=== PATIENT | female | born 1945 | race Caucasian/White ===

== ENCOUNTER → 2020-10-13 15:35 | Outpatient (BNVA) | payer MEDICARE, MEDICAID, SELFPAY | PROVIDERS: PCP Internal Medicine; Visit Provider Internal Medicine Pulmonary Disease | DX: Z76.89 Persons encountering health services in other specified circumstances (principal) | CPT/HCPCS: 99202 ==

== ENCOUNTER 2020-10-13 22:10 | Inpatient (IN) | payer MEDICARE, MEDICAID, SELFPAY ==
[2020-10-13 22:28] VITALS: BP 143/68; BP 180/110; PULSE 93; RESP 24; O2SAT 80; O2SAT 98; BMI 43.2
--- NOTE | 2020-10-13 22:37 | XR_ITS ---
EXAMINATION: XR CHEST CLINICAL INFORMATION: Dyspnea. COMPARISON: Chest CT dated 10/31/2017 and chest radiographs dated 10/05/2017. TECHNIQUE: Frontal view of the chest was obtained. FINDINGS: Low lung volumes and suboptimal penetration limit evaluation. There are increased pulmonary vascular markings. Opacification is seen in the left lower lung. The heart is enlarged. Moderate atherosclerosis is seen in the aortic arch. XR/XR chest 1V IMPRESSION: CHF and cardiomegaly. A left pleural effusion cannot be excluded.
--- NOTE | 2020-10-13 22:37 | ECG_ITS ---
Test Reason : DYSPNEA Blood Pressure : / mmHG Vent. Rate : 093 BPM Atrial Rate : 093 BPM P-R Int : 138 ms QRS Dur : 108 ms QT Int : 364 ms P-R-T Axes : 069 026 018 degrees QTc Int : 452 ms Sinus rhythm with Premature atrial complexes Low voltage QRS Incomplete right bundle branch block Borderline ECG No previous ECGs available Referred By: Zulema Brownlee Electronically Signed By:JAK LANDON
--- NOTE | 2020-10-13 23:09 | ED_ITS ---
HPI - General Adult General Chief complaint: Dyspnea Stated complaint: AMS & HYPOXIA S/P MISPLACED O2 NC TO FOREHEAD Time Seen by Provider: 10/13/20 22:35 Source: EMS Mode of arrival: EMS Limitations: altered mental status History of Present Illness HPI narrative: Patient is brought to emergency room by EMS. Patient has no records available and patient has altered mental status and unable to provide any history. Prior to the patient arriving to the emergency room, the patient's daughter called, states that the patient is known to have severe emphysema, today she was started on home oxygen. According to the daughter, the oxygen tank was not working properly, patient's oxygen saturation dropped to the 80s, patient became cyanotic, short of breath and had altered mental status. Since then, patient has been confused and altered. Patient was brought to the emergency room by EMS, she was placed on 15 L on a non-rebreather, patient pinked up immediately on oxygen improved to 99% I spoke to the patient's daughter, seems that the patient has history of CHF, emphysema, now on oxygen starting today, possible history of VT, smokes 1 cigarette per day. The daughter states that the patient has been complaining of worsening shortness of breath for approximately 1 month now. Patient states that she was seen by her PCP a few days ago, her oxygen was already on the lower side, patient refused to be admitted despite the patient's PCPs insistence. 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 Cherelle hay met the patient at her house, installed oxygen starting today. The daughter states that the patient had oxygen on, went to sleep, seems that the oxygen nasal cannula fell off her face, patient slept for unknown period of time without her oxygen, and when the daughter went to check on the patient, her mother looked hypoxic but was arousable but incoherent and very confused. That is when EMS was called. According to the daughter, as far she knows, the last time that the patient had a CHF exacerbation was approximately 3 or more years ago . Code status discussed, full code per patient's wishes expressed to her recreation superintendent this week Related Data Allergies Allergy/AdvReac Type Severity Reaction Status Date / Time vancomycin Allergy Difficulty Verified 10/13/20 22:36 Breathing Review of Systems Review of Systems: Yes unobtainable due to endotracheal tube PMFSH Past Medical History Medical History (Updated 10/14/20 @ 02:59 by Zulema Brownlee MD) Emphysema lung Social History Social History Alcohol intake: unknown Smoking Status: Unknown if ever smoked Use of substances other than those prescribed or required for medical reasons: Unknown Advance Directives: No Advance Directives Information Provided: No Physical Exam Vital Signs: Vital Signs: Last Vital Signs Temp 97.6 F 10/14/20 01:38 Pulse 104 H 10/14/20 01:38 Resp 20 10/14/20 01:38 BP 176/76 H 10/14/20 01:38 Pulse Ox 97 10/14/20 01:38 Body Mass Index 43.2 Appearance: Alert. Awake, does not seem in any distress, unable to give any history, Eyes: Pupils equal, round and reactive to light. ENT: Pharynx normal. Neck: Normal inspection. Neck supple CVS: Normal heart rate and rhythm. Pulses normal. Normal S1 and S2 Respiratory: No respiratory distress. Mild bilateral wheezing No rales Abdomen: Soft and nontender. Skin: Skin warm and dry. y Extremities: No lower extremity edema. No lower extremity edema. No L acerations. No Rash.However, lower extremities are very cool to touch bilaterally, not cyanotic, very faint pedal pulses bilaterall Neuro: Cranial nerves 2 through 12 grossly intact Course Course Course Narrative: I discussed the labs and physical exam with Dr. Diamond, patient has acute hypoxic respiratory failure, CHF exacerbation. One time dose of antibiotics will be given, at this time we will not give patient fluids, she is overloaded and sepsis is not suspected. Medical Decision Making Lab Data Result diagrams: 10/13/20 23:50 10/13/20 23:49 Labs: Lab Results 10/13/20 10/13/20 10/13/20 Range/Units 23:48 23:49 23:49 WBC (4.8-10.8) X10*3/uL RBC (4.20-5.50) X10*6/uL Hgb (12.0-16.0) g/dl Hct (37-47) % MCV (80-98) fL MCH (27.0-33.0) pg MCHC (31.0-35.0) g/dl RDW (11.0-16.0) % Plt Count MPV Immature Gran % (Auto) (0.0-0.4) % Neut % (Auto) (45-73) % Lymph % (Auto) (20-40) % [place] % (Auto) (2-11) % Eos % (Auto) (0-4) % Baso % (Auto) (0-2) % Lymph # (Auto) (1.2-4.9) X10*3/uL [place] # (Auto) (0.1-1.2) X10*3/uL Eos # (Auto) (0.0-0.4) X10*3/uL Baso # (Auto) (0.0-0.2) X10*3/uL Abs Immat Gran (auto) (0.00-0.03) X10*3/uL Absolute Neuts (auto) (2.0-8.3) X10*3/uL Absolute Nucleated RBC (0.0-0.012) X10*3/uL Nucleated RBC % (auto) (0.0-0.2) /100WBC Smear Tech's Comments Hold Blue Top ABG pH (7.35-7.45) ABG pCO2 (32-45) mmhg ABG pO2 (83-108) mmhg ABG HCO3 (22-26) mmol/l ABG O2 Saturation % ABG Base Excess Oxygen Given Sodium 142 (135-145) mmol/L Potassium 5.8 H (3.3-5.1) mmol/l Chloride 99 (96-108) mmol/L Carbon Dioxide 39 H (22-29) mmol/L Anion Gap 10 L (12-20) BUN 18 H (9-16) mg/dL Creatinine 0.85 (0.5-1.4) mg/dL Estim Creat Clear Calc 71.1 Estimated GFR > 60 Random Glucose 108 (60-115) mg/dL Lactic Acid 0.6 (0.5-2.0) mmol/L Calcium 9.6 (8.4-10.2) mg/dL Total Bilirubin (0.0-1.0) mg/dL Direct Bilirubin (0.0-0.5) mg/dL AST (5-31) U/L ALT (0-31) U/L Alkaline Phosphatase (39-117) U/L Troponin I High Sens 85.5 H (<3.5-17.0) ng/L B-Natriuretic Peptide 498 H (<100) pg/mL Total Protein (6.5-8.0) g/dL Albumin (3.5-5.0) g/dL Coronavirus (PCR) (Negative) Influenza Type A (PCR) (Negative) Influenza Type B (PCR) (Negative) RSV RNA Qual (PCR) (Negative) 10/13/20 10/13/20 10/13/20 Range/Units 23:49 23:50 23:50 WBC 8.1 (4.8-10.8) X10*3/uL RBC 5.16 (4.20-5.50) X10*6/uL Hgb 15.3 (12.0-16.0) g/dl Hct 52.8 H (37-47) % MCV 102.3 H (80-98) fL MCH 29.7 (27.0-33.0) pg MCHC 29.0 L (31.0-35.0) g/dl RDW 14.4 (11.0-16.0) % Plt Count Not Reportable MPV Not Reportable Immature Gran % (Auto) 0.4 (0.0-0.4) % Neut % (Auto) 70.2 (45-73) % Lymph % (Auto) 17.6 L (20-40) % [place] % (Auto) 10.9 (2-11) % Eos % (Auto) 0.7 (0-4) % Baso % (Auto) 0.2 (0-2) % Lymph # (Auto) 1.4 (1.2-4.9) X10*3/uL [place] # (Auto) 0.9 (0.1-1.2) X10*3/uL Eos # (Auto) 0.1 (0.0-0.4) X10*3/uL Baso # (Auto) 0.0 (0.0-0.2) X10*3/uL Abs Immat Gran (auto) 0.03 (0.00-0.03) X10*3/uL Absolute Neuts (auto) 5.7 (2.0-8.3) X10*3/uL Absolute Nucleated RBC 0.000 (0.0-0.012) X10*3/uL Nucleated RBC % (auto) 0.0 (0.0-0.2) /100WBC Smear Tech's Comments VERIFIED Hold Blue Top SEE NOTE ABG pH (7.35-7.45) ABG pCO2 (32-45) mmhg ABG pO2 (83-108) mmhg ABG HCO3 (22-26) mmol/l ABG O2 Saturation % ABG Base Excess Oxygen Given Sodium 142 (135-145) mmol/L Potassium 5.8 H (3.3-5.1) mmol/l Chloride 99 (96-108) mmol/L Carbon Dioxide 38 H (22-29) mmol/L Anion Gap 11 L (12-20) BUN 18 H (9-16) mg/dL Creatinine 0.85 (0.5-1.4) mg/dL Estim Creat Clear Calc 71.1 Estimated GFR > 60 Random Glucose 108 (60-115) mg/dL Lactic Acid (0.5-2.0) mmol/L Calcium 9.6 (8.4-10.2) mg/dL Total Bilirubin 0.4 (0.0-1.0) mg/dL Direct Bilirubin 0.2 (0.0-0.5) mg/dL AST 21 (5-31) U/L ALT 20 (0-31) U/L Alkaline Phosphatase 80 (39-117) U/L Troponin I High Sens (<3.5-17.0) ng/L B-Natriuretic Peptide (<100) pg/mL Total Protein 7.4 (6.5-8.0) g/dL Albumin 4.2 (3.5-5.0) g/dL Coronavirus (PCR) (Negative) Influenza Type A (PCR) (Negative) Influenza Type B (PCR) (Negative) RSV RNA Qual (PCR) (Negative) 10/14/20 10/14/20 10/14/20 Range/Units 00:30 02:03 02:08 WBC (4.8-10.8) X10*3/uL RBC (4.20-5.50) X10*6/uL Hgb (12.0-16.0) g/dl Hct (37-47) % MCV (80-98) fL MCH (27.0-33.0) pg MCHC (31.0-35.0) g/dl RDW (11.0-16.0) % Plt Count MPV Immature Gran % (Auto) (0.0-0.4) % Neut % (Auto) (45-73) % Lymph % (Auto) (20-40) % [place] % (Auto) (2-11) % Eos % (Auto) (0-4) % Baso % (Auto) (0-2) % Lymph # (Auto) (1.2-4.9) X10*3/uL [place] # (Auto) (0.1-1.2) X10*3/uL Eos # (Auto) (0.0-0.4) X10*3/uL Baso # (Auto) (0.0-0.2) X10*3/uL Abs Immat Gran (auto) (0.00-0.03) X10*3/uL Absolute Neuts (auto) (2.0-8.3) X10*3/uL Absolute Nucleated RBC (0.0-0.012) X10*3/uL Nucleated RBC % (auto) (0.0-0.2) /100WBC Smear Tech's Comments Hold Blue Top ABG pH 7.21 L (7.35-7.45) ABG pCO2 94 H* (32-45) mmhg ABG pO2 72 L (83-108) mmhg ABG HCO3 37 H (22-26) mmol/l ABG O2 Saturation 94.0 % ABG Base Excess 4.5 Oxygen Given 7 L Sodium (135-145) mmol/L Potassium (3.3-5.1) mmol/l Chloride (96-108) mmol/L Carbon Dioxide (22-29) mmol/L Anion Gap (12-20) BUN (9-16) mg/dL Creatinine (0.5-1.4) mg/dL Estim Creat Clear Calc Estimated GFR Random Glucose (60-115) mg/dL Lactic Acid (0.5-2.0) mmol/L Calcium (8.4-10.2) mg/dL Total Bilirubin (0.0-1.0) mg/dL Direct Bilirubin (0.0-0.5) mg/dL AST (5-31) U/L ALT (0-31) U/L Alkaline Phosphatase (39-117) U/L Troponin I High Sens Cancelled (<3.5-17.0) ng/L B-Natriuretic Peptide (<100) pg/mL Total Protein (6.5-8.0) g/dL Albumin (3.5-5.0) g/dL Coronavirus (PCR) NEGATIVE (Negative) Influenza Type A (PCR) NEGATIVE (Negative) Influenza Type B (PCR) NEGATIVE (Negative) RSV RNA Qual (PCR) NEGATIVE (Negative) ECG Data Attestation: I personally reviewed and interpreted this ECG as follows: (Sinus rhythm, heart rate 93, incomplete right bundle branch block, QTC 452) Critical Care Time Critical Care Time Total Critical Care Time: 120 Discharge Plan Discharge Clinical Impression: Acute hypercapnic respiratory failure, Acute hyperkalemia Acute exacerbation of CHF (congestive heart failure) Qualifiers: Heart failure type: unspecified Qualified Code(s): I50.9 - Heart failure, unspecified Patient Disposition: Admitted As Inpatient
[2020-10-14] VITALS (30 sets, daily range): BP systolic 92–176; BP diastolic 42–82; PULSE 84–106; RESP 11–25; TEMP 36.4–36.9; O2SAT 90–100; BMI 45.0
--- NOTE | 2020-10-14 | CT_ITS ---
EXAMINATION: CT CHEST WITHOUT CONTRAST CLINICAL INFORMATION: Hypoxia. COMPARISON: Chest 10/13/2020 TECHNIQUE: Multidetector volumetric CT imaging of the chest was done. Axial MIP volume rendering provided. Sagittal and coronal reformatted images were obtained. This CT examination was performed using dose optimization techniques as appropriate, variously including the following: *Automated exposure control *Adjustment of mA and/or kV according to patient size (this includes techniques or standardized protocols for targeted exams where dose is matched to indication/reason for exam; i.e. extremities or head) *Use of iterative reconstruction technique DLP: 445 mGy-cm FINDINGS: SUBSTATION OPERATOR HELPER GENERATION: Enlarged mediastinum secondary to enlarged heart. LUNGS: The lungs are moderately expanded with bibasilar compressive atelectasis and atelectatic stranding in the lingula and right middle lobe. No pulmonary nodule or mass seen. MEDIASTINUM: There is diffuse enlargement of the thyroid gland with mild mass effect on the trachea. There is a heterogeneous calcified mass in the right thyroid gland with substernal extension consistent with goiter. No abnormal sized lymph nodes seen. Heart size is enlarged with small pericardial effusion. There are coronary artery and thoracic aortic arch calcifications. Central trachea and the bronchi appear widely patent. PLEURA: There is minimal bilateral posterior pleural thickening and focal atelectatic changes in the right lung base. AXILLA: No lymphadenopathy. UPPER ABDOMEN: The visualized liver, spleen and pancreas appear unremarkable. Multiple radiopaque gallstones seen. OSSEOUS STRUCTURES: There are degenerative disc changes and vacuum disc phenomenon throughout the dorsal spine. No lytic or sclerotic process seen. CT/CT chest wo con IMPRESSION: Bibasilar compressive atelectasis with bilateral posterior pleural thickening. Small pericardial effusion with moderate cardiomegaly. There are coronary artery calcifications and atherosclerotic calcification of the entire thoracic aorta and the arch. Diffuse thyroid enlargement consistent with goiter with calcified right thyroid nodule with substernal extension. There is mild compromise of the trachea from thyroid enlargement. Gallstones.
[2020-10-14 00:23] LABS: Anion Gap 10 (12-20); Blood Urea Nitrogen 18 mg/dL (9-16); Calcium 9.6 mg/dL (8.4-10.2); Carbon Dioxide 39 mmol/L (22-29); Chloride 99 mmol/L (96-108); Creatinine Clr Calc Pharmacy 71.1; Estimated Glomerular Filt Rate > 60; Glucose Random 108 mg/dL (60-115); Potassium 5.8 mmol/l (3.3-5.1); Sodium 142 mmol/L (135-145)
[2020-10-14 00:26] LABS: Alanine Aminotransferase 20 U/L (0-31); Albumin Level 4.2 g/dL (3.5-5.0); Alkaline Phosphatase 80 U/L (39-117); Anion Gap 11 (12-20); Aspartate Amino Transferase 21 U/L (5-31); Bilirubin Direct 0.2 mg/dL (0.0-0.5); Bilirubin Total 0.4 mg/dL (0.0-1.0); Blood Urea Nitrogen 18 mg/dL (9-16); Calcium 9.6 mg/dL (8.4-10.2); Carbon Dioxide 38 mmol/L (22-29); Chloride 99 mmol/L (96-108); Creatinine Clr Calc Pharmacy 71.1; Estimated Glomerular Filt Rate > 60; Glucose Random 108 mg/dL (60-115); Potassium 5.8 mmol/l (3.3-5.1); Sodium 142 mmol/L (135-145); Total Protein 7.4 g/dL (6.5-8.0)
[2020-10-14 00:39] LABS: Basophils Percent Auto 0.2 % (0-2); Eosinophils Absolute Auto 0.1 X10*3/uL (0.0-0.4); Eosinophils Percent Auto 0.7 % (0-4); Hematocrit 52.8 % (37-47); Hemoglobin 15.3 g/dl (12.0-16.0); Imm Gran Abs Auto 0.03 X10*3/uL (0.00-0.03); Imm Gran Pct Auto 0.4 % (0.0-0.4); Lymphocytes Absolute Auto 1.4 X10*3/uL (1.2-4.9); Lymphocytes Percent Auto 17.6 % (20-40); MANUAL DIFF FLAG SCAN; Mean Corpuscular Hemoglobin 29.7 pg (27.0-33.0); Mean Corpuscular Volume 102.3 fL (80-98); Monocytes Absolute Auto 0.9 X10*3/uL (0.1-1.2); Monocytes Percent Auto 10.9 % (2-11); Neutrophils Absolute Auto 5.7 X10*3/uL (2.0-8.3); Neutrophils Percent Auto 70.2 % (45-73); PLT CLUMP 1; Red Blood Count 5.16 X10*6/uL (4.20-5.50); Red Cell Distribution Width 14.4 % (11.0-16.0); SCAN SMEAR FLAG 1
[2020-10-14 00:45] LABS: White Blood Count 8.1 X10*3/uL (4.8-10.8)
[2020-10-14 00:47] LABS: SLIDE REVIEW VERIFIED
[2020-10-14 00:49] LABS: Lactic Acid 0.6 mmol/L (0.5-2.0)
--- NOTE | 2020-10-14 00:50 | PC.NURSE ---
bernabe Alves can be reached at [phone] for update.
[2020-10-14 01:02] LABS: B Type Natriuretic Peptide 498 pg/mL (<100); Troponin-I High Sensitivity 85.5 ng/L (<3.5-17.0)
[2020-10-14 01:32] LABS: Influenza A PCR NEGATIVE (Negative); Influenza B PCR NEGATIVE (Negative); Resp Syncy Virus RNA Qual PCR NEGATIVE (Negative); SARS COV2 PCR INHOUSE NEGATIVE (Negative)
--- NOTE | 2020-10-14 01:47 | CT_ITS ---
EXAMINATION: CT HEAD WITHOUT CONTRAST CLINICAL INFORMATION: Altered mental status COMPARISON: None. TECHNIQUE: Contiguous axial imaging was performed from the skull base to vertex without intravenous contrast. This CT examination was performed using dose optimization techniques as appropriate, variously including the following: * Automated exposure control * Adjustment of mA and/or kV according to patient size (this includes techniques or standardized protocols for targeted exams where dose is matched to indication/reason for exam; i.e. extremities or head) Use of iterative reconstruction technique DLP: 865 mGy-cm. FINDINGS: There is no evidence of acute intracranial hemorrhage or territorial infarction. No abnormal mass effect or midline shift is seen. Koch to white matter differentiation is well preserved. No extra-axial fluid collections are identified. No hydrocephalus. Proportional prominence of the ventricles and sulcal spaces is consistent with mild volume loss. Patchy periventricular and deep white matter hypoattenuation is consistent with mild small vessel ischemic changes. The osseous structures and soft tissues are normal. The mastoid air cells and visualized portions of the paranasal sinuses are well aerated. CT/CT head/brain wo con IMPRESSION: No acute intracranial pathology. Mild volume loss with small vessel ischemic changes.
[2020-10-14 02:18] LABS: Pt Ventilation O2% 7 L
[2020-10-14 02:35] LABS: Base Excess ABG 4.5; HCO3 ABG 37 mmol/l (22-26); PO2 ABG 72 mmhg (83-108); pH ABG 7.21 (7.35-7.45)
[2020-10-14] MEDS: Furosemide 100 MG/10 ML VIAL 60 MG IVPUSH (02:35)
[2020-10-14 02:39] LABS: ABG PCO2 94 mmhg (32-45)
--- NOTE | 2020-10-14 03:12 | PC.NURSE ---
Lasix given per emar and order. Critical ABG result PC02 of 92. Pt placed on Bipap and plan is to admit icu. Javed cath placed on and urine sample sent. Will continue to monitor.
[2020-10-14] MEDS: Piperacillin Sodium/Tazobactam 3.375 GM in 0.9 % Sodium Chloride 50 ML IV (03:29)
[2020-10-14] MEDS: Dextrose 50 % 25 GM/50 ML SYRINGE IVPUSH (03:29)
[2020-10-14] MEDS: Insulin Regular, Human 100 UNIT/ML 3 ML VIAL IVPUSH ×2 (03:30→22:34)
--- NOTE | 2020-10-14 03:31 | PC.NURSE ---
pt report taken from gretchen flores. ICU PA at bedside with RT. RT giving treatment. Assumed care at 3:30 pm. Pt has poor iv access, one in chest and one in wrist by gretchen flores but infusing well. Pt maxed out on BIPAP, 100% on this. Pt does not like the BIPAP, but at this time required. Pending report to ICU and transfer.
[2020-10-14 03:32] LABS: Glucose Urine UA NEG (NEG); Leukocyte Esterase Urine NEG (NEG); Nitrite Urine NEG (NEG); PH 5.5 (5.0-8.0); Urine Blood 2+ (NEG); Urine Ketones NEG (NEG); Urine Protein NEG (NEG-TRACE)
[2020-10-14 03:38] LABS: Appearance Urine CLEAR; Color Urine YELLOW
--- NOTE | 2020-10-14 03:44 | P.HPCC_ITS ---
History of Present Illness Date of Service: 10/14/20 <MADELIN Acuña - Last Filed: 10/14/20 04:07> Chief Complaint: short of breath <MADELIN Acuña - Last Filed: 10/14/20 04:07> Patient is a 75-year-old female who was BIBA after her daughter found her with an altered mental status, cyanotic and short of breath. Upon EMS arrival, patient's O2 sat was in the 70s so they applied a non-rebreather @ 15 L and patient's O2 saturation tita to 99%. According to the ED doctor, when the patient arrived here she was confused and somnolent and unable to provide a history. The patient was placed on BiPap in the ED. The ED doctor did speak with patient's daughter and apparently the patient has had worsening short of breath over the past month. The daughter explained the pt went to the skilled nursing professional's office this morning and her oxygen saturation was found to be in the 70s so they put her on oxygen, she O2 sat improved to the 90's so they sent her home on 4 L. apparently, according to the daughter when the patient went to bed, the nasal cannula did not stay in her nose properly, unknown period of time, and that is when her daughter found her cyanotic, altered and short of breath. The patient's daughter did say she has a history of CHF but has not had an exacerbation in at least 3 years. Labs were notable for an ABG 7.21/94/72/37/94 base excess of 4.5 on 7L, potassium was elevated at 5.8, carbon dioxide 38, gap of 11, troponin was 85.5 (likely demand ischemia), 2nd troponin is pending and BNP is 498. EKG showed a sinus rhythm at 93BPM with PACs and incomplete RBBB. UA negative for infection. Coronavirus negative. CXR showed CHF, cardiomegaly and a left pleural effusion could not be excluded. <MADELIN Acuña - Last Filed: 10/14/20 04:07> Review of Systems Review of Systems: Patient denies cough, fevers, abdominal pain, headaches or sick contacts, changes in her bladder or bowels <MADELIN Acuña - Last Filed: 10/14/20 04:07> [facility] Past Medical History Medical History: Medical History (Updated 10/14/20 @ 13:01 by Tara Diamond MD) Cor pulmonale, chronic Emphysema lung <MADELIN Acuña - Last Filed: 10/14/20 04:07> Social History Social History: Social History Household Members: Unknown / Unable to assess Housing: Unknown / Unable to assess Alcohol intake: unknown Smoking Status: Unknown if ever smoked Use of substances other than those prescribed or required for medical reasons: Unknown Substance Use Type: Unknown Currently Displaying Signs/Symptoms of Drug Intoxication Withdrawal: No Any prior treatment program specific to substance use: No Spiritual Healthcare Practices: DMITRY pt on Bipap Advance Directives: No Advance Directives Information Provided: No Do you have thoughts of harming others: None Do you have a plan to hurt others: No Plan Recently lost weight without trying: Unsure service: No Current occupational status: retired <MADELIN Acuña - Last Filed: 10/14/20 04:07> Meds Allergies/Adverse reactions: Allergies Allergy/AdvReac Type Severity Reaction Status Date / Time vancomycin Allergy Difficulty Verified 10/13/20 22:36 Breathing <MADELIN Acuña - Last Filed: 10/14/20 04:07> Physical Exam Vital Signs: Vital Signs: Last Vital Signs Temp 97.6 F 10/14/20 01:38 Pulse 96 10/14/20 03:38 Resp 16 10/14/20 03:38 BP 176/76 H 10/14/20 01:38 Pulse Ox 93 10/14/20 03:38 Body Mass Index 43.2 <MADELIN Acuña - Last Filed: 10/14/20 04:07> Const: General: cooperative, healthy appearing, comfortable, no acute distress and confusion (mildly) <MADELIN Acuña - Last Filed: 10/14/20 04:07> Limitations: altered mental status (mild) <MADELIN Acuña - Last Filed: 10/14/20 04:07> HENMT: Head: Yes normal to inspection <MADELIN Acuña - Last Filed: 10/14/20 04:07> General nose exam: Normal external nose present <Doris Purdy [facility] Last Filed: 10/14/20 04:07> Face and sinus: Yes normal facial exam <Doris Purdy [facility] Last Filed: 10/14/20 04:07> Eyes: General: appearance normal, both eyes and all related structures <Doris Purdy [facility] Last Filed: 10/14/20 04:07> Pupils: Equal, round and reactive pupils present <Doris Purdy [facility] Last Filed: 10/14/20 04:07> EOM: EOMs intact bilaterally <Doris Purdy [facility] Last Filed: 10/14/20 04:07> Neck: Neck: Yes normal visual inspection, Yes full ROM, Yes no meningeal signs, Yes trachea midline and Yes supple <Doirs Purdy [facility] Last Filed: 10/14/20 04:07> Chest: Chest palpation & inspection: normal inspection of the chest <Doris Purdy [facility] Last Filed: 10/14/20 04:07> Resp: Effort & Inspection: normal respiratory effort, able to speak in complete sentences (short sentences), no grunting, no nasal flaring and no pursed lip breathing <Doris Purdy [facility] Last Filed: 10/14/20 04:07> Auscultation: wheezes (bilateral) and diminished lung sounds on the left in the lower lung forrest <Doris Purdy [facility] Last Filed: 10/14/20 04:07> Cardio: Rate: regular rate <Doris Purdy [facility] Last Filed: 10/14/20 04:07> Rhythm: regular rhythm <Doris Purdy [facility] Last Filed: 10/14/20 04:07> GI: Inspection: Yes obesity <Doris Purdy [facility] Last Filed: 10/14/20 04:07> Palpation (GI): Soft to palpation and nontender <Doris Purdy [facility] Last Filed: 10/14/20 04:07> Skin: General skin exam: no rashes or lesions noted <MADELIN Acuña - Last Filed: 10/14/20 04:07> Neuro: General: no meningeal signs <MADELIN Acuña - Last Filed: 10/14/20 04:07> Cranial nerves: Yes Equal, round and reactive pupils present <MADELIN Acuña - Last Filed: 10/14/20 04:07> Results Labs CBC and Chem 7: : 10/14/20 05:45 10/14/20 05:45 <MADELIN Acuña - Last Filed: 10/14/20 04:07> Labs: Laboratory Results - last 24 hr 10/13/20 10/13/20 10/13/20 23:48 23:49 23:49 MCV MCH MCHC RDW Plt Count MPV Immature Gran % (Auto) Neut % (Auto) Lymph % (Auto) [place] % (Auto) Eos % (Auto) Baso % (Auto) Lymph # (Auto) [place] # (Auto) Eos # (Auto) Baso # (Auto) Abs Immat Gran (auto) Absolute Neuts (auto) Absolute Nucleated RBC Nucleated RBC % (auto) Smear Tech's Comments Hold Blue Top ABG pH ABG pCO2 ABG pO2 ABG HCO3 ABG O2 Saturation ABG Base Excess Oxygen Given Anion Gap 10 L Estim Creat Clear Calc 71.1 Estimated GFR > 60 Random Glucose 108 Lactic Acid 0.6 Calcium 9.6 Total Bilirubin Direct Bilirubin AST ALT Alkaline Phosphatase Troponin I High Sens 85.5 H B-Natriuretic Peptide 498 H Total Protein Albumin Urine Color Urine Appearance Urine pH Ur Specific [place] Urine Protein Urine Glucose (UA) Urine Ketones Urine Blood Urine Nitrite Ur Leukocyte Esterase Coronavirus (PCR) Influenza Type A (PCR) Influenza Type B (PCR) RSV RNA Qual (PCR) 10/13/20 10/13/20 10/13/20 23:49 23:50 23:50 MCV 102.3 H MCH 29.7 MCHC 29.0 L RDW 14.4 Plt Count Not Reportable MPV Not Reportable Immature Gran % (Auto) 0.4 Neut % (Auto) 70.2 Lymph % (Auto) 17.6 L [place] % (Auto) 10.9 Eos % (Auto) 0.7 Baso % (Auto) 0.2 Lymph # (Auto) 1.4 [place] # (Auto) 0.9 Eos # (Auto) 0.1 Baso # (Auto) 0.0 Abs Immat Gran (auto) 0.03 Absolute Neuts (auto) 5.7 Absolute Nucleated RBC 0.000 Nucleated RBC % (auto) 0.0 Smear Tech's Comments VERIFIED Hold Blue Top SEE NOTE ABG pH ABG pCO2 ABG pO2 ABG HCO3 ABG O2 Saturation ABG Base Excess Oxygen Given Anion Gap 11 L Estim Creat Clear Calc 71.1 Estimated GFR > 60 Random Glucose 108 Lactic Acid Calcium 9.6 Total Bilirubin 0.4 Direct Bilirubin 0.2 AST 21 ALT 20 Alkaline Phosphatase 80 Troponin I High Sens B-Natriuretic Peptide Total Protein 7.4 Albumin 4.2 Urine Color Urine Appearance Urine pH Ur Specific [place] Urine Protein Urine Glucose (UA) Urine Ketones Urine Blood Urine Nitrite Ur Leukocyte Esterase Coronavirus (PCR) Influenza Type A (PCR) Influenza Type B (PCR) RSV RNA Qual (PCR) 10/14/20 10/14/20 10/14/20 00:30 02:03 02:08 MCV MCH MCHC RDW Plt Count MPV Immature Gran % (Auto) Neut % (Auto) Lymph % (Auto) [place] % (Auto) Eos % (Auto) Baso % (Auto) Lymph # (Auto) [place] # (Auto) Eos # (Auto) Baso # (Auto) Abs Immat Gran (auto) Absolute Neuts (auto) Absolute Nucleated RBC Nucleated RBC % (auto) Smear Tech's Comments Hold Blue Top ABG pH 7.21 L ABG pCO2 94 H* ABG pO2 72 L ABG HCO3 37 H ABG O2 Saturation 94.0 ABG Base Excess 4.5 Oxygen Given 7 L Anion Gap Estim Creat Clear Calc Estimated GFR Random Glucose Lactic Acid Calcium Total Bilirubin Direct Bilirubin AST ALT Alkaline Phosphatase Troponin I High Sens Cancelled B-Natriuretic Peptide Total Protein Albumin Urine Color Urine Appearance Urine pH Ur Specific [place] Urine Protein Urine Glucose (UA) Urine Ketones Urine Blood Urine Nitrite Ur Leukocyte Esterase Coronavirus (PCR) NEGATIVE Influenza Type A (PCR) NEGATIVE Influenza Type B (PCR) NEGATIVE RSV RNA Qual (PCR) NEGATIVE 10/14/20 03:04 MCV MCH MCHC RDW Plt Count MPV Immature Gran % (Auto) Neut % (Auto) Lymph % (Auto) [place] % (Auto) Eos % (Auto) Baso % (Auto) Lymph # (Auto) [place] # (Auto) Eos # (Auto) Baso # (Auto) Abs Immat Gran (auto) Absolute Neuts (auto) Absolute Nucleated RBC Nucleated RBC % (auto) Smear Tech's Comments Hold Blue Top ABG pH ABG pCO2 ABG pO2 ABG HCO3 ABG O2 Saturation ABG Base Excess Oxygen Given Anion Gap Estim Creat Clear Calc Estimated GFR Random Glucose Lactic Acid Calcium Total Bilirubin Direct Bilirubin AST ALT Alkaline Phosphatase Troponin I High Sens B-Natriuretic Peptide Total Protein Albumin Urine Color YELLOW Urine Appearance CLEAR Urine pH 5.5 Ur Specific [place] 1.020 Urine Protein NEG Urine Glucose (UA) NEG Urine Ketones NEG Urine Blood 2+ H Urine Nitrite NEG Ur Leukocyte Esterase NEG Coronavirus (PCR) Influenza Type A (PCR) Influenza Type B (PCR) RSV RNA Qual (PCR) <MADELIN Acuña - Last Filed: 10/14/20 04:07> Imaging Radiologist's Impressions: Impressions Chest X-Ray 10/13/20 22:37 IMPRESSION: CHF and cardiomegaly. A left pleural effusion cannot be excluded. <MADELIN Acuña - Last Filed: 10/14/20 04:07> Assessment and Plan (1) Acute hypercapnic respiratory failure: Status: Acute <MADELIN Acuña - Last Filed: 10/14/20 04:07> Patient currently doing well on BiPAP, will give steroids and nebulizer treatments. <MADELIN Acuña - Last Filed: 10/14/20 04:07> (2) Acute exacerbation of CHF (congestive heart failure): Qualifiers: Heart failure type: unspecified Qualified Code(s): I50.9 - Heart failure, unspecified <MADELIN Acuña - Last Filed: 10/14/20 04:07> Status: Acute <MADELIN Acuña - Last Filed: 10/14/20 04:07> Patient given 60 mg of Lasix, in ER and making urine, however nothing is documented at this time <MADELIN Acuña Last Filed: 10/14/20 04:07> (3) Acute hyperkalemia: Status: Acute <MADELIN Acuña - Last Filed: 10/14/20 04:07> Patient given 5 units of insulin and D50 in the emergency room, will repeat labs and monitor <MADELIN Acuña - Last Filed: 10/14/20 04:07>
--- NOTE | 2020-10-14 03:48 | PC.NURSE ---
unable to obtain med reconcile from family, states ems took it. no med documented here. pt unaware of meds, [facility] closed.
[2020-10-14 03:59] LABS: Squamous Epithelial Cell Urine TRACE /LPF; WBC Urine 0 /HPF (0-4)
[2020-10-14 04:58] LABS: Troponin-I High Sensitivity 53.5 ng/L (<3.5-17.0)
[2020-10-14 06:09] LABS: MANUAL DIFF FLAG NO
[2020-10-14 06:18] LABS: Basophils Percent Auto 0.2 % (0-2); Eosinophils Percent Auto 0.2 % (0-4); Hematocrit 49.3 % (37-47); Imm Gran Abs Auto 0.08 X10*3/uL (0.00-0.03); Imm Gran Pct Auto 0.7 % (0.0-0.4); Lymphocytes Absolute Auto 0.9 X10*3/uL (1.2-4.9); Lymphocytes Percent Auto 7.7 % (20-40); Mean Corpuscular HGB Conc 28.4 g/dl (31.0-35.0); Mean Corpuscular Hemoglobin 29.4 pg (27.0-33.0); Mean Corpuscular Volume 103.4 fL (80-98); Mean Platelet Volume 11.2 fL (9.4-12.3); Monocytes Absolute Auto 1.1 X10*3/uL (0.1-1.2); Monocytes Percent Auto 8.9 % (2-11); NRBC Pct Auto 0.3 /100WBC (0.0-0.2); Neutrophils Percent Auto 82.3 % (45-73); Platelet Count 154 X10*3/uL (160-400); Red Blood Count 4.77 X10*6/uL (4.20-5.50); Red Cell Distribution Width 14.6 % (11.0-16.0); White Blood Count 12.2 X10*3/uL (4.8-10.8)
[2020-10-14 06:39] LABS: Anion Gap 14 (12-20); Blood Urea Nitrogen 19 mg/dL (9-16); Calcium 9.3 mg/dL (8.4-10.2); Carbon Dioxide 36 mmol/L (22-29); Chloride 99 mmol/L (96-108); Estimated Glomerular Filt Rate > 60; Glucose Random 137 mg/dL (60-115); Magnesium 2.1 mg/dL (1.6-2.6); Phosphorus 6.5 mg/dL (2.7-4.5); Potassium 5.6 mmol/l (3.3-5.1); Sodium 143 mmol/L (135-145)
[2020-10-14 06:57] LABS: B Type Natriuretic Peptide 559 pg/mL (<100)
[2020-10-14 07:30] LABS: PCO2 VBG 79 mmhg; pH VBG 7.27 (7.32-7.43)
[2020-10-14 07:31] LABS: Base Excess VBG 5.5 mmol/L; HCO3 VBG 36 mmol/L; Oxygen Saturation VBG 89.7 %; PO2 VBG 51 mmhg
[2020-10-14] MEDS: Heparin Sodium,Porcine 5,000 UNIT/ML VIAL 5000 UNIT SUBCUT ×2 (08:12→20:05)
--- NOTE | 2020-10-14 08:58 | MHC.CM.PN ---
pt lives c her daughter and son in her home. pt's daughter cares for patient's needs and will provide transportation home at dc. pt is willing to have vna at dc and requested [facility] to provide sv[facility], a ref. to this agency has been made. patient already has home o2 at home - set up by pt's pcp. dc plan is for patient to return home, possibly on home o2 but definately c the vna. cm to cont. to follow.
[2020-10-14] MEDS: levalbuterol HCL 1.25 MG/3 ML VIAL.NEB INHALE ×3 (11:48→19:12)
[2020-10-14] MEDS: Doxycycline Hyclate 100 MG in 0.9 % Sodium Chloride 250 ML 166.67 MG IV ×2 (12:16→22:33)
--- NOTE | 2020-10-14 12:32 | P.PNCC_ITS ---
Subjective Subjective Date of Service: 10/14/20 Interval History: 75-year-old female with altered mental status and noted to be hypoxemic ultimately found to be an acute on chronic hypercapnic and hypoxic respiratory failure without distinct infectious history nor evidence of a infiltrate on chest x-ray but what appears to be some interstitial edema and small pleural effusions with mildly elevated BNP and trivial troponin EKG with mild right IVCD but no acute ST-T changes echo shows globally normal systolic wall motion of the left ventricle possibly some degree of right ventricular dilatation as well as dilatation of the pulmonary artery trunk and on BiPAP thus far with good volumes pCO2 has diminished from 94-79 but the patient still has some staring speech garbled but of course confused but because of the BiPAP but cranial nerves are symmetric including reaction to light bila terally is no peripheral edema and muscle tone is good reflexes good Physical Exam Vital Signs: Vital Signs: Last Vital Signs Temp 98.1 F 10/14/20 08:00 Pulse 103 H 10/14/20 11:50 Resp 16 10/14/20 11:16 BP 93/51 L 10/14/20 11:00 Pulse Ox 94 10/14/20 11:00 Body Mass Index 45.0 Const: Other: She is awake but speech is not intelligible but neurologically she is into intact but cognition is still very much in question Bedside echocardiogram showing normal LV function with some RV dilatation but functionally okay no primary valve or pericardial disease Chest just with diminished breath sounds bilaterally but no adventitious sounds Abdomen benign it is soft nontender with no organomegaly Skin is intact no wounds no cellulitis no livedo Objective Data Labs CBC & Chem 7: 10/14/20 05:45 10/14/20 05:45 Labs: Laboratory Results - last 24 hr 10/13/20 10/13/20 10/13/20 23:48 23:49 23:49 WBC RBC Hgb Hct MCV MCH MCHC RDW Plt Count MPV Immature Gran % (Auto) Neut % (Auto) Lymph % (Auto) [place] % (Auto) Eos % (Auto) Baso % (Auto) Lymph # (Auto) [place] # (Auto) Eos # (Auto) Baso # (Auto) Abs Immat Gran (auto) Absolute Neuts (auto) Absolute Nucleated RBC Nucleated RBC % (auto) Smear Tech's Comments Hold Blue Top ABG pH ABG pCO2 ABG pO2 ABG HCO3 ABG O2 Saturation ABG Base Excess VBG pH VBG pCO2 VBG pO2 VBG HCO3 VBG O2 Saturation VBG Base Excess Oxygen Given Sodium 142 Potassium 5.8 H Chloride 99 Carbon Dioxide 39 H Anion Gap 10 L BUN 18 H Creatinine 0.85 Estim Creat Clear Calc 71.1 Estimated GFR > 60 Random Glucose 108 Lactic Acid 0.6 Calcium 9.6 Phosphorus Magnesium Total Bilirubin Direct Bilirubin AST ALT Alkaline Phosphatase Troponin I High Sens 85.5 H B-Natriuretic Peptide 498 H Total Protein Albumin Urine Color Urine Appearance Urine pH Ur Specific [place] Urine Protein Urine Glucose (UA) Urine Ketones Urine Blood Urine Nitrite Ur Leukocyte Esterase Urine RBC Urine WBC Ur Squamous Epith Cells Urine Bacteria Hyaline Casts Coronavirus (PCR) Influenza Type A (PCR) Influenza Type B (PCR) RSV RNA Qual (PCR) 10/13/20 10/13/20 10/13/20 23:49 23:50 23:50 WBC 8.1 RBC 5.16 Hgb 15.3 Hct 52.8 H MCV 102.3 H MCH 29.7 MCHC 29.0 L RDW 14.4 Plt Count Not Reportable MPV Not Reportable Immature Gran % (Auto) 0.4 Neut % (Auto) 70.2 Lymph % (Auto) 17.6 L [place] % (Auto) 10.9 Eos % (Auto) 0.7 Baso % (Auto) 0.2 Lymph # (Auto) 1.4 [place] # (Auto) 0.9 Eos # (Auto) 0.1 Baso # (Auto) 0.0 Abs Immat Gran (auto) 0.03 Absolute Neuts (auto) 5.7 Absolute Nucleated RBC 0.000 Nucleated RBC % (auto) 0.0 Smear Tech's Comments VERIFIED Hold Blue Top SEE NOTE ABG pH ABG pCO2 ABG pO2 ABG HCO3 ABG O2 Saturation ABG Base Excess VBG pH VBG pCO2 VBG pO2 VBG HCO3 VBG O2 Saturation VBG Base Excess Oxygen Given Sodium 142 Potassium 5.8 H Chloride 99 Carbon Dioxide 38 H Anion Gap 11 L BUN 18 H Creatinine 0.85 Estim Creat Clear Calc 71.1 Estimated GFR > 60 Random Glucose 108 Lactic Acid Calcium 9.6 Phosphorus Magnesium Total Bilirubin 0.4 Direct Bilirubin 0.2 AST 21 ALT 20 Alkaline Phosphatase 80 Troponin I High Sens B-Natriuretic Peptide Total Protein 7.4 Albumin 4.2 Urine Color Urine Appearance Urine pH Ur Specific [place] Urine Protein Urine Glucose (UA) Urine Ketones Urine Blood Urine Nitrite Ur Leukocyte Esterase Urine RBC Urine WBC Ur Squamous Epith Cells Urine Bacteria Hyaline Casts Coronavirus (PCR) Influenza Type A (PCR) Influenza Type B (PCR) RSV RNA Qual (PCR) 10/14/20 10/14/20 10/14/20 00:30 02:03 02:08 WBC RBC Hgb Hct MCV MCH MCHC RDW Plt Count MPV Immature Gran % (Auto) Neut % (Auto) Lymph % (Auto) [place] % (Auto) Eos % (Auto) Baso % (Auto) Lymph # (Auto) [place] # (Auto) Eos # (Auto) Baso # (Auto) Abs Immat Gran (auto) Absolute Neuts (auto) Absolute Nucleated RBC Nucleated RBC % (auto) Smear Tech's Comments Hold Blue Top ABG pH 7.21 L ABG pCO2 94 H* ABG pO2 72 L ABG HCO3 37 H ABG O2 Saturation 94.0 ABG Base Excess 4.5 VBG pH VBG pCO2 VBG pO2 VBG HCO3 VBG O2 Saturation VBG Base Excess Oxygen Given 7 L Sodium Potassium Chloride Carbon Dioxide Anion Gap BUN Creatinine Estim Creat Clear Calc Estimated GFR Random Glucose Lactic Acid Calcium Phosphorus Magnesium Total Bilirubin Direct Bilirubin AST ALT Alkaline Phosphatase Troponin I High Sens Cancelled B-Natriuretic Peptide Total Protein Albumin Urine Color Urine Appearance Urine pH Ur Specific [place] Urine Protein Urine Glucose (UA) Urine Ketones Urine Blood Urine Nitrite Ur Leukocyte Esterase Urine RBC Urine WBC Ur Squamous Epith Cells Urine Bacteria Hyaline Casts Coronavirus (PCR) NEGATIVE Influenza Type A (PCR) NEGATIVE Influenza Type B (PCR) NEGATIVE RSV RNA Qual (PCR) NEGATIVE 10/14/20 10/14/20 10/14/20 03:04 03:05 05:45 WBC 12.2 H RBC 4.77 Hgb 14.0 Hct 49.3 H MCV 103.4 H MCH 29.4 MCHC 28.4 L RDW 14.6 Plt Count 154 L MPV 11.2 Immature Gran % (Auto) 0.7 H Neut % (Auto) 82.3 H Lymph % (Auto) 7.7 L [place] % (Auto) 8.9 Eos % (Auto) 0.2 Baso % (Auto) 0.2 Lymph # (Auto) 0.9 L [place] # (Auto) 1.1 Eos # (Auto) 0.0 Baso # (Auto) 0.0 Abs Immat Gran (auto) 0.08 H Absolute Neuts (auto) 10.0 H Absolute Nucleated RBC 0.040 H Nucleated RBC % (auto) 0.3 H Smear Tech's Comments Hold Blue Top ABG pH ABG pCO2 ABG pO2 ABG HCO3 ABG O2 Saturation ABG Base Excess VBG pH VBG pCO2 VBG pO2 VBG HCO3 VBG O2 Saturation VBG Base Excess Oxygen Given Sodium Potassium Chloride Carbon Dioxide Anion Gap BUN Creatinine Estim Creat Clear Calc Estimated GFR Random Glucose Lactic Acid Calcium Phosphorus Magnesium Total Bilirubin Direct Bilirubin AST ALT Alkaline Phosphatase Troponin I High Sens 53.5 H B-Natriuretic Peptide Total Protein Albumin Urine Color YELLOW Urine Appearance CLEAR Urine pH 5.5 Ur Specific [place] 1.020 Urine Protein NEG Urine Glucose (UA) NEG Urine Ketones NEG Urine Blood 2+ H Urine Nitrite NEG Ur Leukocyte Esterase NEG Urine RBC 15-29 H Urine WBC 0 Ur Squamous Epith Cells TRACE Urine Bacteria NONE Hyaline Casts 1-4 Coronavirus (PCR) Influenza Type A (PCR) Influenza Type B (PCR) RSV RNA Qual (PCR) 10/14/20 10/14/20 10/14/20 05:45 05:45 07:10 WBC RBC Hgb Hct MCV MCH MCHC RDW Plt Count MPV Immature Gran % (Auto) Neut % (Auto) Lymph % (Auto) [place] % (Auto) Eos % (Auto) Baso % (Auto) Lymph # (Auto) [place] # (Auto) Eos # (Auto) Baso # (Auto) Abs Immat Gran (auto) Absolute Neuts (auto) Absolute Nucleated RBC Nucleated RBC % (auto) Smear Tech's Comments Hold Blue Top ABG pH ABG pCO2 ABG pO2 ABG HCO3 ABG O2 Saturation ABG Base Excess VBG pH 7.27 L VBG pCO2 79 VBG pO2 51 VBG HCO3 36 VBG O2 Saturation 89.7 VBG Base Excess 5.5 Oxygen Given Sodium 143 Potassium 5.6 H Chloride 99 Carbon Dioxide 36 H Anion Gap 14 BUN 19 H Creatinine 0.84 Estim Creat Clear Calc 72.0 Estimated GFR > 60 Random Glucose 137 H Lactic Acid Calcium 9.3 Phosphorus 6.5 H Magnesium 2.1 Total Bilirubin Direct Bilirubin AST ALT Alkaline Phosphatase Troponin I High Sens B-Natriuretic Peptide 559 H Total Protein Albumin Urine Color Urine Appearance Urine pH Ur Specific [place] Urine Protein Urine Glucose (UA) Urine Ketones Urine Blood Urine Nitrite Ur Leukocyte Esterase Urine RBC Urine WBC Ur Squamous Epith Cells Urine Bacteria Hyaline Casts Coronavirus (PCR) Influenza Type A (PCR) Influenza Type B (PCR) RSV RNA Qual (PCR) Progress Note: A&P Assessment and plan (1) Altered mental status: Status: Acute (2) Cor pulmonale, acute: Status: Acute Assessment and Plan: So again a presentation with acute on chronic hypercapnic and hypoxic respiratory failure without a distinct infectious etiology concerns are around her chronic use of Xanax at 1 mg along with tramadol Will workup other metabolic influences and at some point we might need to get an MRI to be sure that were not missing any a embolic phenomena Time Spent With Patient Time: Total time spent is greater than 50% in coordination of care (as documented) at patient's floor/unit and/or counseling patient: Total time spent with greater than 50% in coordination of care (as documented) at patient's floor/unit and/or counseling patient:: 45 No Severe Sepsis: No Severe Sepsis
[2020-10-14 12:37] LABS: Base Excess VBG 6.8 mmol/L; HCO3 VBG 38 mmol/L; Oxygen Saturation VBG 92.1 %; PCO2 VBG 93 mmhg; PO2 VBG 65 mmhg; pH VBG 7.24 (7.32-7.43)
[2020-10-14 15:14] LABS: Ammonia 62 umol/L (13-55)
[2020-10-14 15:14] LABS: B Type Natriuretic Peptide 363 pg/mL (<100)
[2020-10-14 15:37] LABS: TSH reflex Free T4 0.44 mIU/mL (0.32-4.0)
[2020-10-14 16:02] LABS: Folate > 20.0 ng/mL (> or = 4.0); Vitamin B12 1131 pg/mL (200-900)
[2020-10-14 16:22] LABS: Base Excess VBG 3.2 mmol/L; HCO3 VBG 33 mmol/L; Oxygen Saturation VBG 95.7 %; PCO2 VBG 79 mmhg; PO2 VBG 83 mmhg; pH VBG 7.24 (7.32-7.43)
[2020-10-14 16:23] LABS: Blood Gas Serial # 5396
[2020-10-14] MEDS: LORazepam 2 MG/ML VIAL 0.25 MG IVPUSH (17:20)
[2020-10-14 20:57] LABS: Base Excess VBG 5.5 mmol/L; HCO3 VBG 34 mmol/L; PCO2 VBG 68 mmhg; PO2 VBG 67 mmhg; pH VBG 7.32 (7.32-7.43)
[2020-10-14 20:58] LABS: Blood Gas Serial # 5396; Oxygen Saturation VBG 93.7 %
[2020-10-14 21:50] LABS: Anion Gap 10 (12-20); Blood Urea Nitrogen 19 mg/dL (9-16); Calcium 9.1 mg/dL (8.4-10.2); Carbon Dioxide 39 mmol/L (22-29); Chloride 99 mmol/L (96-108); Creatinine Clr Calc Pharmacy 84.8; Estimated Glomerular Filt Rate > 60; Glucose Random 102 mg/dL (60-115); Potassium 5.4 mmol/l (3.3-5.1); Sodium 143 mmol/L (135-145)
[2020-10-14 21:58] LABS: Ammonia 49 umol/L (13-55)
[2020-10-14 22:08] LABS: Troponin-I High Sensitivity 58.1 ng/L (<3.5-17.0)
[2020-10-15] VITALS (33 sets, daily range): BP systolic 87–163; BP diastolic 40–76; PULSE 76–106; RESP 11–29; TEMP 36.6–36.9; O2SAT 88–97; BMI 45.3
--- NOTE | 2020-10-15 | CT_ITS ---
EXAMINATION: CT ANGIOGRAM OF THE CHEST WITH AND WITHOUT CONTRAST (CT PULMONARY ANGIOGRAM FOR PE) CLINICAL INFORMATION: Reason for Exam acute resp failure COMPARISON: None TECHNIQUE: Prior to contrast administration, noncontrast localization images were obtained. Subsequently, multidetector volumetric imaging was performed from the thoracic inlet to below the diaphragms following the administration of 80 mL Omnipaque 350 intravenous contrast. No contrast reaction reported Sagittal, coronal, and MIP oblique sagittal reformatted images were obtained on the CT workstation, uploaded to PACS, and reviewed. This CT examination was performed using dose optimization techniques as appropriate, variously including the following: *Automated exposure control *Adjustment of mA and/or kV according to patient size (this includes techniques or standardized protocols for targeted exams where dose is matched to indication/reason for exam; i.e. extremities or head) *Use of iterative reconstruction technique Total exam dose-length product 247 mGy-cm FINDINGS: QUALITY OF STUDY/CONTRAST BOLUS: Suboptimal. PULMONARY ARTERIES: No's main, right and left pulmonary artery filling defect or narrowing. The subsegmental arteries are not well opacified. THORACIC AORTA: There is atherosclerotic calcification of thoracic aorta without aneurysmal dilatation. No suspicion for dissection. LUNG: There is bilateral lower lobe dependent atelectasis. No visible consolidation or interstitial thickening. PLEURA: There is minimal bilateral posterior pleural thickening and likely small right pleural effusion. MEDIASTINUM: Normal heart size. Small pericardial effusion seen. No hilar or mediastinal lymphadenopathy. No evidence of septal bowing or right heart strain. There is moderate thyroid enlargement mildly compromising the trachea centrally. CHEST WALL/AXILLA: No axillary or internal mammary lymphadenopathy. OSSEOUS STRUCTURES: No lytic or sclerotic process seen. Is mild spondylosis. UPPER ABDOMEN: Visualized liver, spleen, pancreas and bilateral adrenal glands are unremarkable. The there are multiple radiopaque gallstones. No reflux of contrast into the hepatic veins to suggest elevated right heart pressures. CT/CT angio chest PE protocol IMPRESSION: Limited exam with no evidence of PE in the main, right and left pulmonary arteries. There is no aortic dissection or aneurysm suspected. There is bilateral lower lobe dependent atelectasis and minimal bilateral posterior pleural thickening and small right pleural effusion. Suspect small right pericardial effusion. Moderate thyromegaly with mild compression of trachea centrally. VTE: Negative. Results were discussed in person with Dr. Diamond at 11:20 AM.
[2020-10-15] MEDS: LORazepam 2 MG/ML VIAL 0.25 MG IVPUSH ×2 (00:13→08:54)
--- NOTE | 2020-10-15 03:03 | PC.NURSE ---
PT ALERT TO PERSON ONLY, NEEDS FREQUENT RE-ORIENTATION. RESTLESS AT TIMES, PULLING AT MASK/LINES/TUBING, SPEECH GARBLED. AFEBRILE. NSR ON TELE, HR 90s, OCC PVCs. SBP 90-100s, MAP>65. LS DIM. ON BIPAP/AVAPS MODE- Vt 500/EPAP 5/RATE 12/MIN P 10/MAX P 30/I-TIME 1/FIO2 50%. VARGAS IN PLACE, UOP 30 ML/HR. SKIN- FUNGAL TO R BREAST/L ABD. BRUISING THROUGHOUT. +1 BLE EDEMA. DAUGHTER/CALLED UPDATED. PA AWARE OF LABS. MEDICATED PER EMAR. ON AIR LOSS BED. Q2R REPOSITION.
[2020-10-15 05:31] LABS: Basophils Percent Auto 0.1 % (0-2); Hematocrit 46.3 % (37-47); Hemoglobin 13.5 g/dl (12.0-16.0); Imm Gran Abs Auto 0.04 X10*3/uL (0.00-0.03); Imm Gran Pct Auto 0.5 % (0.0-0.4); Lymphocytes Absolute Auto 0.7 X10*3/uL (1.2-4.9); Lymphocytes Percent Auto 9.1 % (20-40); MANUAL DIFF FLAG SCAN; Mean Corpuscular HGB Conc 29.2 g/dl (31.0-35.0); Mean Corpuscular Hemoglobin 29.6 pg (27.0-33.0); Mean Corpuscular Volume 101.5 fL (80-98); Mean Platelet Volume 11.1 fL (9.4-12.3); Monocytes Absolute Auto 0.5 X10*3/uL (0.1-1.2); Monocytes Percent Auto 6.2 % (2-11); Neutrophils Absolute Auto 6.4 X10*3/uL (2.0-8.3); Neutrophils Percent Auto 84.1 % (45-73); Platelet Count 142 X10*3/uL (160-400); Red Blood Count 4.56 X10*6/uL (4.20-5.50); Red Cell Distribution Width 14.2 % (11.0-16.0); SCAN SMEAR FLAG 1; White Blood Count 7.6 X10*3/uL (4.8-10.8)
[2020-10-15 05:51] LABS: Base Excess VBG 7.6 mmol/L; HCO3 VBG 37 mmol/L; PCO2 VBG 72 mmhg; PO2 VBG 44 mmhg; pH VBG 7.32 (7.32-7.43)
[2020-10-15 05:57] LABS: Anion Gap 11 (12-20); Blood Urea Nitrogen 21 mg/dL (9-16); Calcium 8.9 mg/dL (8.4-10.2); Carbon Dioxide 37 mmol/L (22-29); Chloride 100 mmol/L (96-108); Creatinine Clr Calc Pharmacy 91.1; Estimated Glomerular Filt Rate > 60; Glucose Random 102 mg/dL (60-115); Magnesium 2.1 mg/dL (1.6-2.6); Phosphorus 3.7 mg/dL (2.7-4.5); Potassium 5.3 mmol/l (3.3-5.1); Sodium 143 mmol/L (135-145)
[2020-10-15 06:01] LABS: B Type Natriuretic Peptide 275 pg/mL (<100)
[2020-10-15 06:04] LABS: Troponin-I High Sensitivity 53.1 ng/L (<3.5-17.0)
[2020-10-15 07:01] LABS: SLIDE REVIEW VERIFIED
--- NOTE | 2020-10-15 08:30 | CA_ITS ---
Transthoracic Echocardiogram Patient (Last, First, Middle): JAZMIN JACOB, Gender: Female Date of : 1945 Age: 75 Procedure Date: 10/15/2020 Procedure Type: Transthoracic Echocardiogram Location: ICU Height: 165.1 cm Weight: 123.38 kg BSA: 2.25 m2 Heart Rate: bpm BP: 102 / 46 mmHg [employer] Shift Supervisor: Referring MD: Doris YUSUF Symptoms: elevated BNP, mildly elevated troponin, mild RBBB, COPD Study Quality: Fair ECG Rhythm: Sinus Conclusions: - The left ventricular systolic function is normal. The visually estimated ejection fraction is between 60-65%. - There is mild calcification of the aortic valve. - There is mild mitral annular calcification. - There is mild tricuspid valve regurgitation. - Moderate pulmonary hypertension is present. - Small to moderate pericardial effusion, most prominent posterior to the left ventricle. Findings Left Ventricle Normal left ventricular cavity size. There is normal left ventricular wall thickness. The left ventricular systolic function is normal. The visually estimated ejection fraction is between 60-65%. There is no evidence of regional wall motion abnormalities. E/E prime ratio is between 8 and 15 consistent with indeterminate filling pressures. Evidence suggests grade I (mild) diastolic dysfunction. Right Ventricle Normal right ventricular cavity size and systolic function. Atria The left atrium is mildly dilated. The right atrium is mildly dilated. Aortic Valve There is a normal trileaflet aortic valve. There is mild calcification of the aortic valve. There is no aortic valve stenosis. There is no aortic valve regurgitation. Mitral Valve There is mild mitral annular calcification. There is trace mitral valve regurgitation. There is no mitral valve stenosis. Pulmonic Valve The pulmonic valve was not well visualized. Tricuspid Valve Normal tricuspid valve structure. There is mild tricuspid valve regurgitation. The right ventricular systolic pressure is 52 mmHg. Moderate pulmonary hypertension is present. Great Vessels The aortic annulus, sinuses of valsalva, and asc aorta are normal in size. Venous The inferior vena cava is mildly dilated and collapses greater than 50% with inspiration. Pericardium/Pleural There are no definitive echocardiographic findings of tamponade physiology. Small to moderate pericardial effusion, most prominent posterior to the left ventricle. Prior Study Comparison No prior study available for comparison. Measurements 2D Linear Measurements RVIDd: 3.44 RVIDd Index: 1.53 IVSd: 0.87 0.6-0.9/0.6-1.0 cm LVIDd: 5.58 3.9-5.3/4.2-5.9 cm LVIDd Index: 2.48 2.4-3.2/2.2-3.1 cm/m2 LVIDs: 3.90 2.0-3.6 cm LVPWd: 1.09 0.7-1.1 cm Ao Root: 3.50 2.1-3.5 cm LA Diam: 4.60 2.7-3.8/3.0-4.0 cm LAIDs Index: 2.04 1.5-2.3 cm/m2 LV Mass: 264.58 67-162/88-224 g LV Mass Index: 117.59 43-95/49-115 g/m2 LVOT Diam: 1.80 3.0+(-)1.3 cm Mitral Valve MV Pk E: 0.90 MV PK A: 0.70 MV Decel Time: 145.00 E/A: 1.30 E'Lateral: 8.92 E'Medial: 5.55 E/E' Med: 16.20 E/E' Lat: 10.10 Aortic Valve AoV Pk Maynor: 1.95 AoV Mn Maynor: 1.49 AoV VTI: 0.40 AoV Pk Grad: 15.00 Aov Mn Grad: 10.00 CONRAD Cont.VTI: 1.93 LVOT LVOT Pk Maynor: 1.31 LVOT Mn Maynor: 0.81 LVOT VTI: 0.30 LVOT Pk Grad: 7.00 LVOT Mn Grad: 3.00 LVOT Diam: 1.80 LVOT Area: 2.54 Diastolic Function MV Pk E: 0.90 MV Pk A: 0.70 E/A: 1.30 E'Medial: 5.55 E/E' Med: 16.20 E' Laterial: 8.92 E/E' Lat: 10.10 Tricuspid Valve TR Pk Maynor: 3.31 TR Pk Grad: 44.00 RA Press: 8.00 RVSP: 52.00 Great Vessels Aorta Ao Root-2D: 3.50 2.0-3.7 cm Ao Asc: 2.90 2.1-3.4 cm Updated in Other Vendor System with Status of Final Liam Harris MD electronically signed on 10/15/2020 12:13:29 PM with status of Final
[2020-10-15] MEDS: Heparin Sodium,Porcine 5,000 UNIT/ML VIAL 5000 UNIT SUBCUT ×2 (08:54→20:35)
[2020-10-15] MEDS: levalbuterol HCL 1.25 MG/3 ML VIAL.NEB INHALE ×4 (09:49→19:44)
[2020-10-15] MEDS: iohexoL 350 MG/ML 100 ML INFUS..BTL IV (10:59)
[2020-10-15 11:33] LABS: PCO2 VBG 75 mmhg; pH VBG 7.33 (7.32-7.43)
[2020-10-15 11:34] LABS: Base Excess VBG 9.5 mmol/L; HCO3 VBG 39 mmol/L; Oxygen Saturation VBG 87.9 %; PO2 VBG 54 mmhg
--- NOTE | 2020-10-15 11:47 | PM.CCPN ---
Subjective Subjective Date of Service: 10/15/20 Interval History: 75-year-old female with chronic probably sleep apnea and possibly obesity hypoventilation comes in with acute on chronic hypercarbic and hypoxic respiratory failure no apparent precipitating reason other than her medication combination including tramadol and Xanax BiPAP dependent if removed from BiPAP she had a rapid decline in oxygen saturation and then today she tolerated for a little greater length of time and when placed on nasal high-flow we had a better compensated blood gas with pCO2 of 75 and pH of 7.33 and by my calculation she probably normally lives between pCO2 of 55 and 60 End-tidal CO2 was in the low 60s presumably when the pCO2 was in the high 70s so the disparity was not that great therefore I figured cardiac output might be reasonably well preserved and are bedside echo today did show mild concentric left ventricular hypertrophy with evidence of increased left atrial and left ventricular filling pressures and probable pulmonary artery systolic pressure in the low to mid 50s so there is moderate levels of pulmonary hypertension with at least mild right ventricular dilatation Metabolically her renal function is normal but she has persistent hyperkalemia and that might be residual effect of the valsartan that she takes for her hypertension Physical Exam Vital Signs: Vital Signs: Last Vital Signs Temp 98.3 F 10/15/20 08:00 Pulse 101 H 10/15/20 11:36 Resp 22 H 10/15/20 11:35 BP 142/75 H 10/15/20 11:00 Pulse Ox 95 10/15/20 11:00 Body Mass Index 45.3 Const: Other: Somewhat more alert Neurologically nonfocal and cranial nerve function including light reactivity of pupils are normal Skin is intact Cardiac exam with no neck vein distension and has good bilateral carotid upstrokes and no significant resting murmurs or gallops Chest with diminished bilateral breath sounds and no respiratory effort no accessory muscle use Abdomen benign with good bowel sounds nontender Objective Data Labs CBC & Chem 7: 10/15/20 05:03 10/15/20 05:03 Labs: Laboratory Results - last 24 hr 10/14/20 10/14/20 10/14/20 12:06 14:00 14:01 WBC RBC Hgb Hct MCV MCH MCHC RDW Plt Count MPV Immature Gran % (Auto) Neut % (Auto) Lymph % (Auto) [place] % (Auto) Eos % (Auto) Baso % (Auto) Lymph # (Auto) [place] # (Auto) Eos # (Auto) Baso # (Auto) Abs Immat Gran (auto) Absolute Neuts (auto) Absolute Nucleated RBC Nucleated RBC % (auto) Smear Tech's Comments VBG pH 7.24 L VBG pCO2 93 VBG pO2 65 VBG HCO3 38 VBG O2 Saturation 92.1 VBG Base Excess 6.8 Sodium Potassium Chloride Carbon Dioxide Anion Gap BUN Creatinine Estim Creat Clear Calc Estimated GFR Random Glucose Calcium Phosphorus Magnesium Ammonia 62 H Troponin I High Sens 62.0 H B-Natriuretic Peptide 363 H Vitamin B12 Folate TSH 10/14/20 10/14/20 10/14/20 14:01 14:01 16:05 WBC RBC Hgb Hct MCV MCH MCHC RDW Plt Count MPV Immature Gran % (Auto) Neut % (Auto) Lymph % (Auto) [place] % (Auto) Eos % (Auto) Baso % (Auto) Lymph # (Auto) [place] # (Auto) Eos # (Auto) Baso # (Auto) Abs Immat Gran (auto) Absolute Neuts (auto) Absolute Nucleated RBC Nucleated RBC % (auto) Smear Tech's Comments VBG pH 7.24 L VBG pCO2 79 VBG pO2 83 VBG HCO3 33 VBG O2 Saturation 95.7 VBG Base Excess 3.2 Sodium Potassium Chloride Carbon Dioxide Anion Gap BUN Creatinine Estim Creat Clear Calc Estimated GFR Random Glucose Calcium Phosphorus Magnesium Ammonia Troponin I High Sens B-Natriuretic Peptide Vitamin B12 1131 H Folate > 20.0 TSH 0.44 10/14/20 10/14/20 10/14/20 20:39 20:40 20:40 WBC RBC Hgb Hct MCV MCH MCHC RDW Plt Count MPV Immature Gran % (Auto) Neut % (Auto) Lymph % (Auto) [place] % (Auto) Eos % (Auto) Baso % (Auto) Lymph # (Auto) [place] # (Auto) Eos # (Auto) Baso # (Auto) Abs Immat Gran (auto) Absolute Neuts (auto) Absolute Nucleated RBC Nucleated RBC % (auto) Smear Tech's Comments VBG pH VBG pCO2 VBG pO2 VBG HCO3 VBG O2 Saturation VBG Base Excess Sodium 143 Potassium 5.4 H Chloride 99 Carbon Dioxide 39 H Anion Gap 10 L BUN 19 H Creatinine 0.73 Estim Creat Clear Calc 84.8 Estimated GFR > 60 Random Glucose 102 Calcium 9.1 Phosphorus Magnesium Ammonia 49 Troponin I High Sens 58.1 H B-Natriuretic Peptide Vitamin B12 Folate [facility] 10/14/20 10/15/20 10/15/20 20:40 05:03 05:03 WBC 7.6 RBC 4.56 Hgb 13.5 Hct 46.3 MCV 101.5 H MCH 29.6 MCHC 29.2 L RDW 14.2 Plt Count 142 L MPV 11.1 Immature Gran % (Auto) 0.5 H Neut % (Auto) 84.1 H Lymph % (Auto) 9.1 L [place] % (Auto) 6.2 Eos % (Auto) 0.0 Baso % (Auto) 0.1 Lymph # (Auto) 0.7 L [place] # (Auto) 0.5 Eos # (Auto) 0.0 Baso # (Auto) 0.0 Abs Immat Gran (auto) 0.04 H Absolute Neuts (auto) 6.4 Absolute Nucleated RBC 0.000 Nucleated RBC % (auto) 0.0 Smear Tech's Comments VERIFIED VBG pH 7.32 VBG pCO2 68 VBG pO2 67 VBG HCO3 34 VBG O2 Saturation 93.7 VBG Base Excess 5.5 Sodium 143 Potassium 5.3 H Chloride 100 Carbon Dioxide 37 H Anion Gap 11 L BUN 21 H Creatinine 0.68 Estim Creat Clear Calc 91.1 Estimated GFR > 60 Random Glucose 102 Calcium 8.9 Phosphorus 3.7 Magnesium 2.1 Ammonia Troponin I High Sens B-Natriuretic Peptide Vitamin B12 Folate [facility] 10/15/20 10/15/20 10/15/20 05:03 05:03 05:03 WBC RBC Hgb Hct MCV MCH MCHC RDW Plt Count MPV Immature Gran % (Auto) Neut % (Auto) Lymph % (Auto) [place] % (Auto) Eos % (Auto) Baso % (Auto) Lymph # (Auto) [place] # (Auto) Eos # (Auto) Baso # (Auto) Abs Immat Gran (auto) Absolute Neuts (auto) Absolute Nucleated RBC Nucleated RBC % (auto) Smear Tech's Comments VBG pH 7.32 VBG pCO2 72 VBG pO2 44 VBG HCO3 37 VBG O2 Saturation 85.0 VBG Base Excess 7.6 Sodium Potassium Chloride Carbon Dioxide Anion Gap BUN Creatinine Estim Creat Clear Calc Estimated GFR Random Glucose Calcium Phosphorus Magnesium Ammonia Troponin I High Sens 53.1 H B-Natriuretic Peptide 275 H Vitamin B12 Folate [facility] 10/15/20 11:03 WBC RBC Hgb Hct MCV MCH MCHC RDW Plt Count MPV Immature Gran % (Auto) Neut % (Auto) Lymph % (Auto) [place] % (Auto) Eos % (Auto) Baso % (Auto) Lymph # (Auto) [place] # (Auto) Eos # (Auto) Baso # (Auto) Abs Immat Gran (auto) Absolute Neuts (auto) Absolute Nucleated RBC Nucleated RBC % (auto) Smear Tech's Comments VBG pH 7.33 VBG pCO2 75 VBG pO2 54 VBG HCO3 39 VBG O2 Saturation 87.9 VBG Base Excess 9.5 Sodium Potassium Chloride Carbon Dioxide Anion Gap BUN Creatinine Estim Creat Clear Calc Estimated GFR Random Glucose Calcium Phosphorus Magnesium Ammonia Troponin I High Sens B-Natriuretic Peptide Vitamin B12 Folate TSH Microbiology Microbiology Results: Microbiology 10/13/20 23:50 Blood - Venous Blood Culture - Preliminary No growth after 24 hours. Progress Note: A&P Assessment and plan (1) Cor pulmonale, acute: Status: Acute (2) Altered mental status: Status: Acute (3) Acute hypercapnic respiratory failure: Status: Acute (4) Acute exacerbation of CHF (congestive heart failure): Status: Acute (5) Acute hyperkalemia: Status: Acute (6) Hyperkalemia: Status: Acute (7) Diastolic CHF with preserved left ventricular function, NYHA class 2: Status: Acute Assessment and Plan: CT a of the chest ruled out major pulmonary embolism and this nothing distinct in the parenchyma other than some scattered atelectasis and this implies that she still needs the positive-pressure because she has a continued hypo ventilator but we documented by VBG that she is tolerating nasal high-flow enough so that we could at least allow her to eat and then restore her to to the BiPAP mechanism as we slowly wean her benzodiazepine Time Spent With Patient Time: Total time spent is greater than 50% in coordination of care (as documented) at patient's floor/unit and/or counseling patient: Total time spent with greater than 50% in coordination of care (as documented) at patient's floor/unit and/or counseling patient:: 45 No Severe Sepsis: No Severe Sepsis
--- NOTE | 2020-10-15 12:10 | MHC.CM.PN ---
Per MD rounds, pt is off BiPAP and now on HF O2. To CT to r/o P.E. Pt orientated to person. Dr. Diamond states pt is vague. Did not meet with pt secondary to medical condition.Spoke with daughter, Joselyn, who patient lives with.She tells CM that her sister, Daphnie, is her mother's HCP, but she recently had shoulder surgery and cannot speak with me. She believes her sister has the HCP paperwork, but cannot find it at this time. PCP is Dr. Tong. Joselyn feels mother may need VNA services when she comes home. Spoke with her at length regarding need to continually re-evaluate her mothers medical condition as she recovers, and to re-assess if home care vs STR will be necessary. Will monitor for d/c needs
[2020-10-15] MEDS: Dextrose 5 % and 0.45 % NaCl 1,000 ML 100 ML IVCONT (12:55)
[2020-10-15] MEDS: Nystatin Powder 15 GM BOTTLE 1 APPL TOPICAL ×2 (13:05→20:38)
--- NOTE | 2020-10-15 13:11 | P.CDIC_ITS ---
CDI Concurrent Query Service Date: 10/17/20 Documentation Clarification: Please clarify if you are treating a proba ble/suspected/likely or confirmed: Metabolic Encephalopathy Toxic Encephalopathy Hypertensive Encephalopathy Provider Response: Other Other Diagnosis: Metabolic encephalopathy due to acute on chronic hypercarbic/hypoxic respiratory failure PLEASE DO NOT DELETE/MODIFY EXISTING CONTENT Additional information is needed in order to code to the highest accuracy and appropriate Severity of Illness (SOI). Please clarify the information noted below in your progress notes and discharge summary. Risk Factors/Clinical Indicators/Treatments 75 year old female admitted with altered mental status, dyspnea, hypoxia. Started on home oxygen and tank was not working properly. Patient became cyanotic, SOB, altered mental status. Since then, patient confused and altered. Per H&P: Acute on chronic hypercapnic and hypoxic respiratory failure, Acute CHF Acute Hyperkalemia, Acute altered mental status, Acute cor pulmonale CDS: Autumn Robles RN Contact Number: [phone] Please Review the information above and exercise your independent professional judgment in responding to the query. If you concur, pleas document in the PROGRESS NOTES and DISCHARGE SUMMARY. If you do not agree with the query, please document in the query above. THIS QUERY IS PART OF THE PERMANENT MEDICAL RECORD
--- NOTE | 2020-10-15 14:02 | PC.NURSE ---
pt repositioned in bed q2h, CT scan in am r/o PE, pt has peripheral IV in R hand, 500 ml of D5, 45% NS running at 100/hr, pt coughing after po liquids, speech eval ordered, pt oriented to person, vague to situation, able to talk and answer questions, bathed, mouth swabbed, on high flow o2 at this time, tolerating well, on bipap with AVAP settings oivernight, pt has intermittent cough with scant amt clear/cream sputum, teague intact, will cont to monitor
[2020-10-15] MEDS: 0.9 % Sodium Chloride Flush 3 ML SYRINGE IVFLUSH (16:01)
[2020-10-16] VITALS (31 sets, daily range): BP systolic 124–187; BP diastolic 55–107; PULSE 77–114; RESP 12–33; TEMP 36.5–37.1; O2SAT 87–97; BMI 46.0
--- NOTE | 2020-10-16 | XR_ITS ---
EXAMINATION: XR CHEST CLINICAL INFORMATION: Hypoxia. COMPARISON: Chest 10/13/2020 TECHNIQUE: Frontal view of the chest was obtained. FINDINGS: There is mild cardiomegaly with increased vascularity consistent with mild CHF. It appears minimally improved since 10/13/2020. No consolidation or pleural effusion is suspected. No gross bony abnormality XR/XR chest 1V IMPRESSION: Mild cardiomegaly with increased pulmonary vascularity slightly improved since 10/13/2020.
[2020-10-16] MEDS: 0.9 % Sodium Chloride Flush 3 ML SYRINGE IVFLUSH ×3 (02:42→14:46)
[2020-10-16 05:34] LABS: MANUAL DIFF FLAG SCAN; PLT CLUMP 1; SCAN SMEAR FLAG 1
[2020-10-16 05:38] LABS: HCO3 VBG 38 mmol/L; Oxygen Saturation VBG 94.6 %; PCO2 VBG 59 mmhg; PO2 VBG 66 mmhg; pH VBG 7.43 (7.32-7.43)
[2020-10-16 05:44] LABS: Hemoglobin 14.6 g/dl (12.0-16.0); Mean Corpuscular Hemoglobin 29.5 pg (27.0-33.0); Monocytes Absolute Auto 0.6 X10*3/uL (0.1-1.2); Monocytes Percent Auto 12.6 % (2-11); Red Blood Count 4.95 X10*6/uL (4.20-5.50); Red Cell Distribution Width 13.6 % (11.0-16.0); White Blood Count 4.9 X10*3/uL (4.8-10.8)
[2020-10-16 05:47] LABS: Hematocrit 48.4 % (37-47); Imm Gran Abs Auto 0.03 X10*3/uL (0.00-0.03); Imm Gran Pct Auto 0.6 % (0.0-0.4); Lymphocytes Absolute Auto 0.5 X10*3/uL (1.2-4.9); Lymphocytes Percent Auto 11.1 % (20-40); Mean Corpuscular HGB Conc 30.2 g/dl (31.0-35.0); Mean Corpuscular Volume 97.8 fL (80-98); Neutrophils Absolute Auto 3.7 X10*3/uL (2.0-8.3); Neutrophils Percent Auto 75.7 % (45-73)
[2020-10-16 05:56] LABS: SLIDE REVIEW VERIFIED
[2020-10-16 06:05] LABS: Anion Gap 13 (12-20); Blood Urea Nitrogen 23 mg/dL (9-16); Calcium 9.1 mg/dL (8.4-10.2); Carbon Dioxide 36 mmol/L (22-29); Chloride 99 mmol/L (96-108); Creatinine Clr Calc Pharmacy 100.2; Estimated Glomerular Filt Rate > 60; Glucose Random 122 mg/dL (60-115); Magnesium 2.3 mg/dL (1.6-2.6); Potassium 5.2 mmol/l (3.3-5.1); Sodium 143 mmol/L (135-145)
[2020-10-16] MEDS: levalbuterol HCL 1.25 MG/3 ML VIAL.NEB INHALE ×4 (07:32→20:49)
[2020-10-16] MEDS: Nystatin Powder 15 GM BOTTLE 1 APPL TOPICAL ×2 (07:51→22:08)
[2020-10-16] MEDS: Heparin Sodium,Porcine 5,000 UNIT/ML VIAL 5000 UNIT SUBCUT (07:53)
--- NOTE | 2020-10-16 09:22 | P.PNCC_ITS ---
Subjective Subjective Date of Service: 10/16/20 Interval History: 75-year-old female with obesity/hypoventilation as well as the obstructive sleep apnea who was on a combination of tramadol and Xanax and came in with altered mental status and acute on chronic hypercarbic and hypoxic respiratory failure no evidence of parenchymal disease no evidence of pulmonary vascular disease but she is a hypertensive with mild concentric left ventricular hypertrophy and evidence of diastolic dysfunction with elevated left atrial and left ventricular filling pressures She has complete methodist of mental status pCO2 is back to her chronic norm of 59 with a compensated pH and she is spending her day on nasal high-flow and it is just overnight sleeping that she is using the BiPAP device Swallow did note some penetration of the cords with thin liquids and recommended thickened Physical Exam Vital Signs: Vital Signs: Last Vital Signs Temp 98.1 F 10/16/20 08:00 Pulse 105 H 10/16/20 09:00 Resp 20 10/16/20 09:00 BP 130/107 H 10/16/20 09:00 Pulse Ox 89 L 10/16/20 09:00 Body Mass Index 46.0 Const: Other: More awake and alert and and oriented and nonfocal neurologic Chest percussed equally no clinical pleural effusion no adventitious sounds Abdomen is benign with good bowel sounds no organomegaly Cardiac exam with no neck vein distension she has good bilateral carotid upstrokes with no bruits Objective Data Labs CBC & Chem 7: 10/16/20 05:05 10/16/20 05:05 Labs: Laboratory Results - last 24 hr 10/15/20 10/16/20 10/16/20 11:03 05:05 05:05 WBC 4.9 RBC 4.95 Hgb 14.6 Hct 48.4 H MCV 97.8 MCH 29.5 MCHC 30.2 L RDW 13.6 Plt Count Not Reportable MPV Not Reportable Immature Gran % (Auto) 0.6 H Neut % (Auto) 75.7 H Lymph % (Auto) 11.1 L [place] % (Auto) 12.6 H Eos % (Auto) 0.0 Baso % (Auto) 0.0 Lymph # (Auto) 0.5 L [place] # (Auto) 0.6 Eos # (Auto) 0.0 Baso # (Auto) 0.0 Abs Immat Gran (auto) 0.03 Absolute Neuts (auto) 3.7 Absolute Nucleated RBC 0.000 Nucleated RBC % (auto) 0.0 Smear Tech's Comments VERIFIED VBG pH 7.33 VBG pCO2 75 VBG pO2 54 VBG HCO3 39 VBG O2 Saturation 87.9 VBG Base Excess 9.5 Sodium 143 Potassium 5.2 H Chloride 99 Carbon Dioxide 36 H Anion Gap 13 BUN 23 H Creatinine 0.62 Estim Creat Clear Calc 100.2 Estimated GFR > 60 Random Glucose 122 H Calcium 9.1 Phosphorus 2.0 L Magnesium 2.3 10/16/20 05:05 WBC RBC Hgb Hct MCV MCH MCHC RDW Plt Count MPV Immature Gran % (Auto) Neut % (Auto) Lymph % (Auto) [place] % (Auto) Eos % (Auto) Baso % (Auto) Lymph # (Auto) [place] # (Auto) Eos # (Auto) Baso # (Auto) Abs Immat Gran (auto) Absolute Neuts (auto) Absolute Nucleated RBC Nucleated RBC % (auto) Smear Tech's Comments VBG pH 7.43 VBG pCO2 59 VBG pO2 66 VBG HCO3 38 VBG O2 Saturation 94.6 VBG Base Excess 11.0 Sodium Potassium Chloride Carbon Dioxide Anion Gap BUN Creatinine Estim Creat Clear Calc Estimated GFR Random Glucose Calcium Phosphorus Magnesium Microbiology Microbiology Results: Microbiology 10/13/20 23:50 Blood - Venous Blood Culture - Preliminary No growth after 48 hours. 10/13/20 23:50 Blood - Venous Blood Culture - Preliminary No growth after 24 hours. Progress Note: A&P Assessment and plan (1) Diastolic CHF with preserved left ventricular function, NYHA class 2: Status: Acute (2) Hyperkalemia: Status: Acute (3) Cor pulmonale, acute: Status: Acute (4) Altered mental status: Status: Acute (5) Acute hypercapnic respiratory failure: Status: Acute (6) Acute exacerbation of CHF (congestive heart failure): Status: Acute (7) Acute hyperkalemia: Status: Acute Assessment and Plan: So the plan again is to recheck another VBG while she is on the nasal high-flow just to prove adequacy of his daytime mechanism allow her to eat her diet and just check to be sure she is not clinically aspirating Time Spent With Patient Time: Total time spent is greater than 50% in coordination of care (as documented) at patient's floor/unit and/or counseling patient: Total time spent with greater than 50% in coordination of care (as documented) at patient's floor/unit and/or counseling patient:: 30
--- NOTE | 2020-10-16 14:23 | ECG_ITS ---
Test Reason : CHEST PAIN Blood Pressure : / mmHG Vent. Rate : 095 BPM Atrial Rate : 095 BPM P-R Int : 166 ms QRS Dur : 074 ms QT Int : 314 ms P-R-T Axes : 012 008 -06 degrees QTc Int : 394 ms Sinus rhythm with Premature atrial complexes Anteroseptal infarct , age undetermined Abnormal ECG When compared with ECG of 13-OCT-2020 22:45, No significant changes seen Referred By: Tara Diamond Electronically Signed By:JAK LANDON
[2020-10-16 17:03] LABS: Pt Ventilation O2% 70%
[2020-10-16 17:06] LABS: ABG PCO2 48 mmhg (32-45); HCO3 ABG 37 mmol/l (22-26); PO2 ABG 87 mmhg (83-108)
[2020-10-16 17:07] LABS: Blood Gas Serial # 5396
[2020-10-16] MEDS: LORazepam 2 MG/ML VIAL 0.5 MG IVPUSH (17:41)
--- NOTE | 2020-10-16 18:18 | PC.NURSE ---
AFEBRILE. SBP 130-170, MD AWARE. SR/ST W/ PAC AND PVCS ON TELE. PT A&O X 3 AT START OF SHIFT AND TRANSITIONED FROM BIPAP TO HIGH FLOW. ON HIGH FLOW 50%/40L PTS 02 DROPPED TO LOW 80S, RESPIRATORY CALLED AND MD NOTIFIED, SETTINGS CHANGED TO 100%/40L AND 02 CAME UP TO AROUND 86%. PT QUICKLY BECAME CONFUSED, DISORIENTED, PARANOID, AND ANXIOUS ON HIGH FLOW AT 1130. TRANSITIONED BACK TO BIPAP: AVAP TV 600, RATE 12 EPAP 6 MIN 10 MAX 30 FI02 70%, 02-88-92%. PT CONTINUED TO BE CONFUSED THROUGHOUT SHIFT, RIPPING BIPAP OFF, SCRATCHED LEFT CHEEK WITH HER FINGER NAILS. PINK FOAM APPLIED TO SCRATCH FOR PROTECTION. PT STATES SHE'S HOME IN HER BEDROOM. REDIRECTED, BUT ATTEMPTS TO TAKE MASK OFF AGAIN MOMENTS LATER. MD AWARE. CXR ORDERED AND PERFORMED. ABGS DRAWN BY RT: 7.50/48/87/37/98.0/12.0. ORDERED ATIVAN 0.5 MG IV X 1, ADMINISTERED WITH MINIMAL EFFECT. Q2H REPO, BATHED, BARRIER CREAM AND NYSTATIN POWDER APPLIED, PILLOWS UTILIZED. PTS THREE CHILDREN UPDATED THROUGHOUT SHIFT. PTS DAUGHTER TO ARRIVE TONIGHT TO BRING HOME PTS JAISON. WILL CALL WHEN SHE IS ON HER WAY. WILL NOTIFY ONCOMING RN.
[2020-10-16 21:50] LABS: Procalcitonin < 0.02 ng/mL
[2020-10-17] VITALS (33 sets, daily range): BP systolic 90–164; BP diastolic 37–89; PULSE 73–112; RESP 14–27; TEMP 36.7–37.1; O2SAT 91–99; BMI 44.0
[2020-10-17 00:35] LABS: Base Excess VBG 11.2 mmol/L; HCO3 VBG 38 mmol/L; Oxygen Saturation VBG 94.1 %; PCO2 VBG 56 mmhg; PO2 VBG 63 mmhg; pH VBG 7.45 (7.32-7.43)
[2020-10-17] MEDS: 0.9 % Sodium Chloride Flush 3 ML SYRINGE IVFLUSH ×3 (01:03→17:13)
[2020-10-17] MEDS: LORazepam 2 MG/ML VIAL 0.5 MG IVPUSH (01:18)
[2020-10-17 06:11] LABS: Hemoglobin 14.9 g/dl (12.0-16.0); Imm Gran Abs Auto 0.02 X10*3/uL (0.00-0.03); Imm Gran Pct Auto 0.4 % (0.0-0.4); Lymphocytes Absolute Auto 0.5 X10*3/uL (1.2-4.9); Lymphocytes Percent Auto 8.2 % (20-40); MANUAL DIFF FLAG SCAN; Mean Corpuscular HGB Conc 30.4 g/dl (31.0-35.0); Mean Corpuscular Hemoglobin 29.4 pg (27.0-33.0); Mean Corpuscular Volume 96.8 fL (80-98); Mean Platelet Volume 11.4 fL (9.4-12.3); Monocytes Absolute Auto 0.6 X10*3/uL (0.1-1.2); Monocytes Percent Auto 9.8 % (2-11); Neutrophils Absolute Auto 4.6 X10*3/uL (2.0-8.3); Neutrophils Percent Auto 81.6 % (45-73); Platelet Count 145 X10*3/uL (160-400); Red Blood Count 5.06 X10*6/uL (4.20-5.50); Red Cell Distribution Width 13.5 % (11.0-16.0); SCAN SMEAR FLAG 1; White Blood Count 5.6 X10*3/uL (4.8-10.8)
[2020-10-17 06:15] LABS: Base Excess VBG 10.4 mmol/L; HCO3 VBG 38 mmol/L; PCO2 VBG 59 mmhg; PO2 VBG 52 mmhg; pH VBG 7.42 (7.32-7.43)
[2020-10-17 06:16] LABS: Oxygen Saturation VBG 88.6 %
[2020-10-17 06:27] LABS: Anion Gap 12 (12-20); B Type Natriuretic Peptide 604 pg/mL (<100); Blood Urea Nitrogen 24 mg/dL (9-16); Calcium 9.1 mg/dL (8.4-10.2); Carbon Dioxide 38 mmol/L (22-29); Chloride 96 mmol/L (96-108); Estimated Glomerular Filt Rate > 60; Glucose Random 123 mg/dL (60-115); Magnesium 2.3 mg/dL (1.6-2.6); Phosphorus 2.6 mg/dL (2.7-4.5); Potassium 4.7 mmol/l (3.3-5.1); Sodium 141 mmol/L (135-145)
[2020-10-17 06:34] LABS: Prothrombin Time 12.4 SEC (10.8-13.0)
[2020-10-17 06:36] LABS: Partial Thromboplastin Time 25.7 SEC (24.1-38.0)
[2020-10-17 07:22] LABS: SLIDE REVIEW VERIFIED
[2020-10-17] MEDS: Heparin Sodium,Porcine 5,000 UNIT/ML VIAL 5000 UNIT SUBCUT ×2 (07:44→20:37)
[2020-10-17] MEDS: Furosemide 20 MG TABLET PO (07:45)
[2020-10-17] MEDS: Losartan Potassium 25 MG TABLET PO (07:45)
[2020-10-17] MEDS: predniSONE 20 MG TABLET 40 MG PO (07:46)
[2020-10-17] MEDS: carvediloL 3.125 MG TABLET PO ×2 (07:54→20:38)
--- NOTE | 2020-10-17 07:57 | PC.NURSE ---
assumed care at 19:00. patient was alert, oriented to person, time, place, and vague to situation at times. was initially on bipap avap settings 09/20, set tv 600, tv: 430; overbreathing some rr 14 te: 6.2; spo2 on bipap 90-93%; fio2 70%; patient had a break from mask due to insistance, and desatted immediately to 85-87% range on nasal cannula briefly 5 lpm. patient did refuse the bipap as of 22:00, and was educated as to risks of not using bipap, voiced comprehension, had family call on [employer] julius ipad, with encouragement to follow plan of care, patient still refuses the bipap, but now only willing to wear high flow 80% 50 lpm, spo2 90-95%. patient had no cough overnight. patient with lung sounds clear uppers and dim bases. patient with some sob with exertion noted as she got to edge of bed, and tachycardia with exertion. most of night hr was sinus rhythm with occasional pacs and pvcs, rate 100-114; but with exertion, hr briefly as high as 149. patient with impulsive behavior, pulled out two ivs, repeatedly pulled off oxygen equipment, required frequent redirection. nursing telephone supervisor aware, telesitter in place. family updated. patient has bruised skin over her torso and bilateral arms, as well as a small scratch on the bridge of her nose and on her left cheek. patient removed dressings applied, and those scratches are open to air and appear intact. discussed bruising with pa and held one dose of prophylactic heparin per pa.
[2020-10-17] MEDS: levalbuterol HCL 1.25 MG/3 ML VIAL.NEB INHALE ×4 (07:58→19:32)
[2020-10-17] MEDS: Nystatin Powder 15 GM BOTTLE 1 APPL TOPICAL ×2 (10:53→20:39)
--- NOTE | 2020-10-17 15:12 | PM.CCPN ---
Subjective Subjective Date of Service: 10/17/20 Interval History: Much more awake mentally appropriate conversational and oriented 75-year-old female with chronic obesity/hypoventilation and obstructive sleep apnea previously untreated came with altered mental status with acute on chronic hypercarbic/hypoxic respiratory failure with no evidence of infiltrate no evidence of pulmonary vascular disease and apparently combination of Xanax and tramadol added to her obtundation and in addition she has got hypertensive myocardial disease with mild concentric hypertrophy and acute on chronic diastolic CHF but preserved systolic reserve of the ventricle Today we initiated combination of Coreg and losartan as well as Lasix diuretic and had been using very sparing doses of IV Ativan for her agitation and the no to prevent withdrawal which I believe has been an issue since yesterday And now tolerating all day and a portion of the night nasal high-flow with pCO2 is between 48 and 58 certainly much improved Physical Exam Vital Signs: Vital Signs: Last Vital Signs Temp 98.2 F 10/17/20 12:00 Pulse 89 10/17/20 14:00 Resp 14 10/17/20 14:00 BP 151/88 H 10/17/20 14:00 Pulse Ox 96 10/17/20 14:00 Body Mass Index 44.0 Const: Other: Awake and alert and oriented with diminished agitation Neuro is nonfocal Cardiac exam with normal sinus rhythm and no neck vein distension and good bilateral carotid upstrokes and no gallops Chest without adventitious sounds Abdomen benign nondistended and tolerating feedings and good bowel sounds no organomegaly Skin is intact Objective Data Labs CBC & Chem 7: 10/17/20 05:18 10/17/20 05:18 Labs: Laboratory Results - last 24 hr 10/16/20 10/16/20 10/16/20 16:55 19:44 20:55 WBC RBC Hgb Hct MCV MCH MCHC RDW Plt Count MPV Immature Gran % (Auto) Neut % (Auto) Lymph % (Auto) Mellette % (Auto) Eos % (Auto) Baso % (Auto) Lymph # (Auto) Mellette # (Auto) Eos # (Auto) Baso # (Auto) Abs Immat Gran (auto) Absolute Neuts (auto) Absolute Nucleated RBC Nucleated RBC % (auto) Smear Tech's Comments PT INR APTT ABG pH 7.50 H ABG pCO2 48 H ABG pO2 87 ABG HCO3 37 H ABG O2 Saturation 98.0 ABG Base Excess 12.0 VBG pH VBG pCO2 VBG pO2 VBG HCO3 VBG O2 Saturation VBG Base Excess Oxygen Given 70% Sodium Potassium Chloride Carbon Dioxide Anion Gap BUN Creatinine Estim Creat Clear Calc Estimated GFR Random Glucose Calcium Phosphorus Magnesium B-Natriuretic Peptide Procalcitonin Cancelled < 0.02 10/17/20 10/17/20 10/17/20 00:25 05:17 05:18 WBC 5.6 RBC 5.06 Hgb 14.9 Hct 49.0 H MCV 96.8 MCH 29.4 MCHC 30.4 L RDW 13.5 Plt Count 145 L MPV 11.4 Immature Gran % (Auto) 0.4 Neut % (Auto) 81.6 H Lymph % (Auto) 8.2 L Mellette % (Auto) 9.8 Eos % (Auto) 0.0 Baso % (Auto) 0.0 Lymph # (Auto) 0.5 L Mellette # (Auto) 0.6 Eos # (Auto) 0.0 Baso # (Auto) 0.0 Abs Immat Gran (auto) 0.02 Absolute Neuts (auto) 4.6 Absolute Nucleated RBC 0.000 Nucleated RBC % (auto) 0.0 Smear Tech's Comments VERIFIED PT INR APTT ABG pH ABG pCO2 ABG pO2 ABG HCO3 ABG O2 Saturation ABG Base Excess VBG pH 7.45 H 7.42 VBG pCO2 56 59 VBG pO2 63 52 VBG HCO3 38 38 VBG O2 Saturation 94.1 88.6 VBG Base Excess 11.2 10.4 Oxygen Given Sodium Potassium Chloride Carbon Dioxide Anion Gap BUN Creatinine Estim Creat Clear Calc Estimated GFR Random Glucose Calcium Phosphorus Magnesium B-Natriuretic Peptide Procalcitonin 10/17/20 10/17/20 10/17/20 05:18 05:18 05:18 WBC RBC Hgb Hct MCV MCH MCHC RDW Plt Count MPV Immature Gran % (Auto) Neut % (Auto) Lymph % (Auto) Mellette % (Auto) Eos % (Auto) Baso % (Auto) Lymph # (Auto) Mellette # (Auto) Eos # (Auto) Baso # (Auto) Abs Immat Gran (auto) Absolute Neuts (auto) Absolute Nucleated RBC Nucleated RBC % (auto) Smear Tech's Comments PT 12.4 INR 1.0 APTT 25.7 ABG pH ABG pCO2 ABG pO2 ABG HCO3 ABG O2 Saturation ABG Base Excess VBG pH VBG pCO2 VBG pO2 VBG HCO3 VBG O2 Saturation VBG Base Excess Oxygen Given Sodium 141 Potassium 4.7 Chloride 96 Carbon Dioxide 38 H Anion Gap 12 BUN 24 H Creatinine 0.64 Estim Creat Clear Calc 98.0 Estimated GFR > 60 Random Glucose 123 H Calcium 9.1 Phosphorus 2.6 L Magnesium 2.3 B-Natriuretic Peptide 604 H Procalcitonin Microbiology Microbiology Results: Microbiology 10/13/20 23:50 Blood - Venous Blood Culture - Preliminary No growth after 48 hours. 10/13/20 23:50 Blood - Venous Blood Culture - Preliminary No growth after 48 hours. Progress Note: A&P Assessment and plan (1) Diastolic CHF with preserved left ventricular function, NYHA class 2: Status: Acute (2) Hyperkalemia: Status: Acute (3) Cor pulmonale, acute: Status: Acute (4) Altered mental status: Status: Acute (5) Acute hypercapnic respiratory failure: Status: Acute (6) Acute exacerbation of CHF (congestive heart failure): Status: Acute (7) Acute hyperkalemia: Status: Acute Assessment and Plan: At this point we will stay with the nasal high-flow and probably start to wean the flow and then attached pulmonary consult possibly for nocturnal BiPAP Time Spent With Patient Time: Total time spent is greater than 50% in coordination of care (as documented) at patient's floor/unit and/or counseling patient: Total time spent with greater than 50% in coordination of care (as documented) at patient's floor/unit and/or counseling patient:: 35
--- NOTE | 2020-10-17 16:40 | PC.NURSE ---
Patient remains on HFNC 80%/50L with o2 sats trending in the mid 90s. SBP trending between 140s-160s, MD aware and meds adjusted by MD. SR with PACs and PVCs on tele. Patient A&Ox4, cooperative with care and respiratory equipment. Full bed bath given and hair washed. 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 Patient tolerating nectar thick liquids and regular diet. Javed output trending around 60 cc/hr of yellow urine. No BM today. Patient's daughter, Joselyn, updated by this RN with verbal permission from patient.
[2020-10-18] VITALS (20 sets, daily range): BP systolic 128–186; BP diastolic 52–111; PULSE 86–108; RESP 18–28; TEMP 36.4–36.9; O2SAT 92–99; BMI 43.7
[2020-10-18] MEDS: 0.9 % Sodium Chloride Flush 3 ML SYRINGE IVFLUSH ×2 (00:05→10:40)
[2020-10-18 06:28] LABS: PCO2 VBG 69 mmhg; pH VBG 7.39 (7.32-7.43)
[2020-10-18 06:29] LABS: Base Excess VBG 12.2 mmol/L; HCO3 VBG 41 mmol/L; Oxygen Saturation VBG 87.3 %; PO2 VBG 51 mmhg
[2020-10-18 06:30] LABS: Basophils Percent Auto 0.1 % (0-2); MANUAL DIFF FLAG SCAN; Monocytes Absolute Auto 1.2 X10*3/uL (0.1-1.2); PLT CLUMP 1; SCAN SMEAR FLAG 1
[2020-10-18 06:32] LABS: Eosinophils Percent Auto 0.3 % (0-4); Hemoglobin 15.7 g/dl (12.0-16.0); Imm Gran Abs Auto 0.05 X10*3/uL (0.00-0.03); Imm Gran Pct Auto 0.5 % (0.0-0.4); Lymphocytes Absolute Auto 1.2 X10*3/uL (1.2-4.9); Lymphocytes Percent Auto 12.3 % (20-40); Mean Corpuscular HGB Conc 30.2 g/dl (31.0-35.0); Mean Corpuscular Hemoglobin 29.2 pg (27.0-33.0); Mean Corpuscular Volume 96.7 fL (80-98); Monocytes Percent Auto 12.2 % (2-11); Neutrophils Absolute Auto 7.5 X10*3/uL (2.0-8.3); Neutrophils Percent Auto 74.6 % (45-73); Red Blood Count 5.38 X10*6/uL (4.20-5.50); Red Cell Distribution Width 13.4 % (11.0-16.0)
[2020-10-18 07:05] LABS: Albumin Level 3.4 g/dL (3.5-5.0); Blood Urea Nitrogen 17 mg/dL (9-16); Calcium 8.9 mg/dL (8.4-10.2); Creatinine Clr Calc Pharmacy 107.2; Estimated Glomerular Filt Rate > 60; Glucose Random 86 mg/dL (60-115); Magnesium 2.2 mg/dL (1.6-2.6); Phosphorus 2.5 mg/dL (2.7-4.5)
[2020-10-18 07:17] LABS: Anion Gap 10 (12-20); Chloride 94 mmol/L (96-108); Potassium 4.3 mmol/l (3.3-5.1); Sodium 142 mmol/L (135-145)
[2020-10-18 07:41] LABS: Carbon Dioxide 42 mmol/L (22-29)
[2020-10-18] MEDS: levalbuterol HCL 1.25 MG/3 ML VIAL.NEB INHALE ×4 (07:42→19:50)
--- NOTE | 2020-10-18 07:57 | PM.CCPN ---
Subjective Subjective Date of Service: 10/18/20 Interval History: 75-year-old female presents with acute on chronic hypercarbic and hypoxic respiratory failure and was on a combination of tramadol and Xanax which probably contributed and she had altered mental status initially BiPAP requiring now she spent 24 consecutive hours on nasal high-flow with pCO2 is closer to her normal chronic range of 59-69 with compensated pH and no infectious etiology was noted She does have significant diastolic dysfunction based on hypertensive cardiovascular disease and and lastly was persistently hyperkalemic Mental status since restored and now I have I have started her on a combination of vaso dilator and diuretic therapy with normal potassium 2 L volume loss There is a diet that is prescribed but we question whether not to the diastolic dysfunction of the left heart could of been an impediment to her work of breathing Physical Exam Vital Signs: Vital Signs: Last Vital Signs Temp 97.5 F 10/18/20 03:00 Pulse 93 10/18/20 07:43 Resp 20 10/18/20 07:43 BP 128/52 L 10/18/20 04:54 Pulse Ox 92 10/18/20 04:54 Body Mass Index 44.0 Const: Other: She is oriented and awake and nonfocal neurologically Skin is intact Cardiac exam with no neck vein distension and good bilateral carotid upstrokes and no gallops Chest without adventitious sounds Abdomen benign and soft and nondistended with good bowel sounds no organomegaly Objective Data Labs CBC & Chem 7: 10/17/20 05:18 10/18/20 05:58 Labs: Laboratory Results - last 24 hr 10/18/20 10/18/20 05:58 05:58 VBG pH 7.39 VBG pCO2 69 VBG pO2 51 VBG HCO3 41 VBG O2 Saturation 87.3 VBG Base Excess 12.2 Sodium 142 Potassium 4.3 Chloride 94 L Carbon Dioxide 42 H* Anion Gap 10 L BUN 17 H Creatinine 0.57 Estim Creat Clear Calc 107.2 Estimated GFR > 60 Random Glucose 86 Calcium 8.9 Phosphorus 2.5 L Magnesium 2.2 Albumin 3.4 L Microbiology Microbiology Results: Microbiology 10/13/20 23:50 Blood - Venous Blood Culture - Preliminary No growth after 48 hours. 10/13/20 23:50 Blood - Venous Blood Culture - Preliminary No growth after 48 hours. Progress Note: A&P Assessment and plan (1) Diastolic CHF with preserved left ventricular function, NYHA class 2: Status: Acute (2) Hyperkalemia: Status: Acute (3) Cor pulmonale, acute: Status: Acute (4) Altered mental status: Status: Acute (5) Acute hypercapnic respiratory failure: Status: Acute (6) Acute exacerbation of CHF (congestive heart failure): Status: Acute (7) Acute hyperkalemia: Status: Acute Assessment and Plan: So we need to minimize the medicines that up tongue her so tramadol has been stopped and because she did have some early signs of withdrawal I have her on a very small dose of Ativan but certainly not at depressive levels and certainly not to combined this with an opioid needs a pulmonary consult to follow her on the outside and to qualify her possibly for a positive-pressure device at home She may stay on nasal high-flow and slowly wean the flow but I would keep the BiPAP as a p.r.n. mechanism Start physical rehab including respiratory exercises with deep breathing And vaso dilator therapy including the her Lasix as well as losartan and Coreg Time Spent With Patient Time: Total time spent is greater than 50% in coordination of care (as documented) at patient's floor/unit and/or counseling patient: Total time spent with greater than 50% in coordination of care (as documented) at patient's floor/unit and/or counseling patient:: 30
[2020-10-18 08:05] LABS: SLIDE REVIEW VERIFIED
[2020-10-18] MEDS: Heparin Sodium,Porcine 5,000 UNIT/ML VIAL 5000 UNIT SUBCUT ×2 (10:36→23:28)
[2020-10-18] MEDS: predniSONE 20 MG TABLET 40 MG PO (10:39)
[2020-10-18] MEDS: Losartan Potassium 25 MG TABLET PO (10:39)
[2020-10-18] MEDS: carvediloL 3.125 MG TABLET PO ×2 (10:40→22:00)
[2020-10-18] MEDS: Furosemide 20 MG TABLET PO (10:40)
--- NOTE | 2020-10-18 10:53 | PM.EVENT ---
Event Note Date of Service: 10/18/20 Event Note: 75-year-old female patient with past medical history of hypoventilation/obesity/obstructive sleep apnea not on home BiPAP presented to [facility] with altered mental status and was diagnosed to have acute on chronic hypercarbic and hypoxic respiratory failure, patient admitted to ICU and treated with BiPAP subsequently patient remains stable on high-flow oxygen patient did not require BiPAP overnight and has been transferred to intermediate care unit continued monitoring and treatment. Assessment and plan Acute on chronic hypercarbic and hypoxic respiratory failure likely due to obesity hypoventilation syndrome it in combination with use of tramadol and Xanax, no pulmonary infection of pulmonary embolism found and echocardiogram showed evidence of mild diastolic dysfunction patient treated with BiPAP, his steroid and inhalers, currently patient on high-flow oxygen has not required BiPAP Last night. CT chest at admission showed bibasilar compressive atelectasis with bilateral posterior pleural thickening and small pericardial effusion, diffuse thyroid enlargement Will mild compromise of trachea, patient admitted to intensive care unit treated with bicarb oxygen Echocardiogram showed EF 60 65% no evidence of regional wall motion abnormality and grade 1 mild diastolic dysfunction, and moderate pulmonary hypertension with small to moderate pericardial effusion most prominent posterior to left ventricle, EKG showed sinus rhythm with PACs and anterioseptal infarction of indeterminate age CTA chest showed no PE At present patient denies shortness of breath feels warm and requesting for cold face cloth, patient has chronic right knee pain for which she was using narcotics Will obtain home medication list will DC BiPAP and use CPAP during naps and at bedtime, gradually wean high-flow oxygen obtain pulmonary consultation Add Ativan as needed for anxiety and opiate withdrawal. Acute encephalopathy due to hypercarbic respiratory failure resolved chronic diastolic heart failure no acute exacerbation chronically elevated BNP continue Coreg, Lasix and losartan Tobacco abuse disorder patient stop smoking 1 month ago, has been smoking since age 14 Morbid obesity contributing to hypo ventilation and respiratory failure, weight reduction recommended. DVT prophylaxis with heparin
--- NOTE | 2020-10-18 20:12 | CONS_ITS ---
DATE OF SERVICE: 10/18/2020 CHIEF COMPLAINT: Shortness of breath. HISTORY OF PRESENT ILLNESS: Ms. Millan is a 75-year-old woman with known history of long-standing smoking and COPD with a history of respiratory failure. Apparently she was in the usual state of health until her daughter found her with altered mental status, cyanotic, very short of breath. EMS was called and she was found to be saturating down in the 70s. She was placed on non-rebreather and brought to the [facility] ED where she was evaluated, found to have significant acidosis due to acute on chronic hypercarbic respiratory failure; pH 7.21, pCO2 of 94, PaO2 of 72 on the oxygen. The patient was placed on BiPAP and was admitted to the ICU. There, she was diuresed aggressively for diastolic dysfunction. The patient was placed on high-flow and subsequently transferred out of the unit. The patient states that she quit smoking about 3 months ago. She is smoking since the age of 14. She does have support at home with her daughters. She states that she did have a sleep study in the past but she could not finish it because she cannot fall asleep. The patient has not used any PAP therapy in her home. Also to note, during the hospitalization, she did have an echocardiogram demonstrating moderate pulmonary hypertension likely from hypoxia. REVIEW OF SYSTEMS: Ten systems reviewed. Denies any P[employer] CON[employer]ULTANT symptoms at this time. Complains of respiratory symptoms. Denies any cardiac symptoms. She does feel warm and anxious. Denies any musculoskeletal issues. Denies any GI or issues. Rest of 10-organ system is negative. PAST MEDICAL HISTORY: COPD, diastolic dysfunction, respiratory failure, cor pulmonale. SOCIAL HISTORY: She quit smoking 3 months ago. She lives with her 2 daughters. ALLERGIES: PLEASE REFER TO THE [facility] FOR THE FULL LIST INCLUDING VANCOMYCIN. CURRENT MEDICATIONS: Please refer to the [facility] for the full list including DuoNeb, heparin, nystatin, losartan, Lasix, prednisone 40 daily, lorazepam as needed. FAMILY HISTORY: High blood pressure. PHYSICAL EXAMINATION: VITAL SIGNS: Stable, saturating 94% on high-flow. GENERAL: Pleasant lady, in no acute distress. HEENT: Pupils are equal and reactive to light. Oropharynx is clear. NECK: Supple. CARDIAC: Regular rhythm. Regular rate. LUNGS: Actually sound pretty clear, diminished. Nasal cannula high flow is on. ABDOMEN: Positive bowel sounds. Soft. EXTREMITIES: No clubbing or cyanosis. No further edema noted. LABORATORY DATA: Her white count is normalized to 10, hemoglobin stable, platelet count 145. Last venous gas from today pH 7.39, pCO2 of 69, pO2 of 51. Her bicarb is still elevated at 42 from a chronic respiratory failure compensation. Phosphorus is 2.5, still repleting. IMAGING STUDIES: CT scan of the chest perceived by me that was on October 15 demonstrating decreased lung volumes, areas of atelectasis. No evidence of any PE, increased thyroid size and some evidence of tracheomalacia. The most recent x-ray from October 16 demonstrating increased cardiac size with some vascular congestion. ASSESSMENT: Mrs. Millan is a 75-year-old woman with known history of chronic obstructive pulmonary disease due to smoking with respiratory failure, found to have acute on chronic hypercarbic respiratory failure requiring ICU level of care. IMPRESSION: 1. Acute on chronic hypercarbic respiratory failure, seems to be better after the noninvasive ventilation in the ICU and also the additional medical therapy. The patient still has significantly elevated baseline CO2. This patient carries a poor prognosis and high risk of readmissions to the hospital. The respiratory failure is due to her underlying chronic obstructive pulmonary disease. 2. Pulmonary hypertension, this is secondary to the significant hypoxia. 3. Chronic obstructive pulmonary disease, currently being treated for chronic obstructive pulmonary disease exacerbation with steroids. She feels still a little anxious likely from the steroids but should be weaned down. RECOMMENDATIONS: 1. At this point, the patient carries a poor prognosis. My recommendation is for her to start noninvasive ventilator at nighttime. A noninvasive ventilator will provide her better gas exchange and also improved prognosis and decrease hospitalizations. 2. Continue nasal cannula during the daytime to maintain a pulse ox between 88% to 94%. 3. Continue with prednisone taper. We will try to taper down to 20 mg and continue to taper every three to four days by 10 mg. 4. Continue respiratory therapy. We will add Breo. 5. The patient needs to be evaluated by PT, OT, Respiratory to see if she may be a candidate for a short-term rehab in order to get used to her noninvasive ventilator. This will be helpful in her respiratory rehab. Further recommendations based on forthcoming data. MD AMBROCIO Gale/CARMELLA / [phone]
[2020-10-18] MEDS: LORazepam 0.5 MG TABLET PO (23:29)
[2020-10-19] VITALS (15 sets, daily range): BP systolic 134–170; BP diastolic 51–80; PULSE 81–102; RESP 18–24; TEMP 36.2–37.3; O2SAT 91–99
[2020-10-19] MEDS: 0.9 % Sodium Chloride Flush 3 ML SYRINGE IVFLUSH ×4 (06:29→23:53)
[2020-10-19] MEDS: Fluticasone/Vilanterol 100/25 BLST.W.DEV 1 PUFF INHALE (07:20)
[2020-10-19] MEDS: levalbuterol HCL 1.25 MG/3 ML VIAL.NEB INHALE ×4 (07:20→19:45)
[2020-10-19] MEDS: Losartan Potassium 25 MG TABLET PO (07:48)
[2020-10-19] MEDS: predniSONE 20 MG TABLET PO (07:49)
[2020-10-19] MEDS: Heparin Sodium,Porcine 5,000 UNIT/ML VIAL 5000 UNIT SUBCUT ×2 (07:49→22:06)
[2020-10-19] MEDS: Furosemide 20 MG TABLET PO (07:49)
[2020-10-19] MEDS: carvediloL 3.125 MG TABLET PO ×2 (07:49→22:05)
--- NOTE | 2020-10-19 11:11 | MHC.CM.PN ---
The goal for dc is for Patient to return home with a new referral to [facility] pending PT eval. Patient is on 15L O2 and not yet medically cleared for dc. CM will continue to follow for dc planning and possible need to adjust the dc plan.
[2020-10-19] MEDS: LORazepam 0.5 MG TABLET PO (12:58)
--- NOTE | 2020-10-19 13:04 | HO.PM.IMPN ---
Subjective Subjective Date of Service: 10/19/20 Interval History: sob Gastrointestinal Gastrointestinal: Reports no additional gastrointestinal complaints Genitourinary Genitourinary: Reports no additional female genitourinary complaints Physical Exam Vital Signs: Vital Signs: Last Vital Signs Temp 98.2 F 10/19/20 11:50 Pulse 93 10/19/20 11:50 Resp 20 10/19/20 11:50 BP 140/73 H 10/19/20 11:50 Pulse Ox 94 10/19/20 11:50 Body Mass Index 43.7 General: AO X 3, ill appearing Resp: diminished CVS: S1,S2,RRR GI: soft, non tender, non distended Neuro: motor grossly intact Psych: appropriate affect Objective Data Current Medications Generic Name Dose Route Start Last Admin Trade Name Freq PRN Reason Stop Dose Admin Albuterol/Ipratropium 3 ml 10/14/20 04:11 Albuterol/Iprat 2.5/0.5mg 3 Ml Ampul.Neb INHALE Q2H PRN sob Carvedilol 3.125 mg 10/17/20 09:00 10/19/20 07:49 Carvedilol 3.125 Mg Tablet PO 3.125 mg BID KALPESH Administration Protocol Fluticasone/Vilanterol 1 puff 10/19/20 08:00 10/19/20 07:20 Fluticasone/Vilanterol 100/25 Blst.W.Dev INHALE 1 puff RDAILY KALPESH Administration Furosemide 20 mg 10/17/20 09:00 10/19/20 07:49 Furosemide 20 Mg Tablet PO 20 mg DAILY KALPESH Administration Protocol Heparin Sodium (Porcine) 5,000 unit 10/14/20 09:00 10/19/20 07:49 Heparin Sodium,Porcine 5,000 Unit/Ml Vial SUBCUT 5,000 unit Q12H KALPESH Administration Levalbuterol HCl 1.25 mg 10/14/20 12:00 10/19/20 11:11 Levalbuterol Hcl 1.25 Mg/3 Ml Vial.Neb INHALE 1.25 mg RQ4H WHILE AWAKE KALPESH Administration Lorazepam 0.5 mg 10/18/20 10:51 10/19/20 12:58 Lorazepam 0.5 Mg Tablet PO 0.5 mg Q8H PRN Administration Anxiety Losartan Potassium 25 mg 10/17/20 09:00 10/19/20 07:48 Losartan Potassium 25 Mg Tablet PO 25 mg DAILY KALPESH Administration Protocol Nystatin 1 appl 10/15/20 10:15 10/19/20 07:50 Nystatin Powder 15 Gm Bottle TOPICAL Not Given BID [facility] Protocol Prednisone 20 mg 10/19/20 09:00 10/19/20 07:49 Prednisone 20 Mg Tablet PO 20 mg DAILY KALPESH Administration Sodium Chloride 3 ml 10/15/20 16:00 10/19/20 07:48 0.9 % Sodium Chloride Flush 3 Ml Syringe IVFLUSH 3 ml QSHIFT KALPESH Administration Labs CBC & Chem 7: 10/18/20 05:58 10/18/20 05:58 Microbiology Microbiology Results: Microbiology 10/13/20 23:50 Blood - Venous Blood Culture - Final No growth after 5 days. 10/13/20 23:50 Blood - Venous Blood Culture - Final No growth after 5 days. Assessment and Plan (1) Diastolic CHF with preserved left ventricular function, NYHA class 2: Status: Acute (2) Hyperkalemia: Status: Acute (3) Cor pulmonale, acute: Status: Acute (4) Altered mental status: Status: Acute (5) Acute hypercapnic respiratory failure: Status: Acute (6) Acute exacerbation of CHF (congestive heart failure): Status: Acute (7) Acute hyperkalemia: Status: Acute Assessment and Plan: 75-year-old female presented with shortness of breath. Was admitted to the ICU for acute on chronic hypoxic and hypercapnic respiratory failure requiring BiPAP and acute on chronic diastolic CHF requiring diuresis. Patient was then transition to high-flow O2. Now doing better and downgraded to medical floor. Acute on chronic hypoxic and hypercapnic respiratory failure secondary to COPD exacerbation and acute on chronic diastolic CHF Wean O2 as tolerated Needs to be set up for noninvasive positive pressure ventilation at home Continue Lasix p.o. and prednisone p.o. Pulmonary following Weight loss
[2020-10-20] VITALS (16 sets, daily range): BP systolic 119–146; BP diastolic 63–85; PULSE 82–98; RESP 16–20; TEMP 36.2–37; O2SAT 89–94
[2020-10-20 07:17] LABS: Basophils Percent Auto 0.1 % (0-2); Hemoglobin 15.5 g/dl (12.0-16.0); MANUAL DIFF FLAG SCAN; PLT CLUMP 1; Red Cell Distribution Width 13.4 % (11.0-16.0); SCAN SMEAR FLAG 1
[2020-10-20 07:19] LABS: Eosinophils Absolute Auto 0.1 X10*3/uL (0.0-0.4); Eosinophils Percent Auto 1.7 % (0-4); Hematocrit 50.9 % (37-47); Imm Gran Abs Auto 0.05 X10*3/uL (0.00-0.03); Imm Gran Pct Auto 0.7 % (0.0-0.4); Lymphocytes Absolute Auto 1.3 X10*3/uL (1.2-4.9); Lymphocytes Percent Auto 16.9 % (20-40); Mean Corpuscular HGB Conc 30.5 g/dl (31.0-35.0); Mean Corpuscular Volume 95.3 fL (80-98); Mean Platelet Volume 11.9 fL (9.4-12.3); Monocytes Percent Auto 12.5 % (2-11); Neutrophils Absolute Auto 5.2 X10*3/uL (2.0-8.3); Neutrophils Percent Auto 68.1 % (45-73); Red Blood Count 5.34 X10*6/uL (4.20-5.50); White Blood Count 7.6 X10*3/uL (4.8-10.8)
[2020-10-20 08:02] LABS: Anion Gap 10 (12-20); Blood Urea Nitrogen 19 mg/dL (9-16); Calcium 8.3 mg/dL (8.4-10.2); Carbon Dioxide 40 mmol/L (22-29); Chloride 95 mmol/L (96-108); Creatinine Clr Calc Pharmacy 103.2; Estimated Glomerular Filt Rate > 60; Glucose Fasting 85 mg/dL (60-99); Potassium 4.1 mmol/l (3.3-5.1); Sodium 141 mmol/L (135-145)
[2020-10-20 08:12] LABS: SLIDE REVIEW VERIFIED
[2020-10-20] MEDS: Furosemide 20 MG TABLET PO (09:29)
[2020-10-20] MEDS: predniSONE 20 MG TABLET PO (09:29)
[2020-10-20] MEDS: Losartan Potassium 25 MG TABLET PO (09:29)
[2020-10-20] MEDS: carvediloL 3.125 MG TABLET PO ×2 (09:29→20:31)
[2020-10-20] MEDS: 0.9 % Sodium Chloride Flush 3 ML SYRINGE IVFLUSH ×3 (09:30→20:42)
[2020-10-20] MEDS: Nystatin Powder 15 GM BOTTLE 1 APPL TOPICAL (09:30)
[2020-10-20] MEDS: Heparin Sodium,Porcine 5,000 UNIT/ML VIAL 5000 UNIT SUBCUT ×2 (09:31→20:31)
[2020-10-20] MEDS: levalbuterol HCL 1.25 MG/3 ML VIAL.NEB INHALE ×3 (11:07→19:33)
--- NOTE | 2020-10-20 11:07 | HO.PM.IMPN ---
Subjective Subjective Date of Service: 10/20/20 Interval History: tired Cardiovascular Cardiovascular: Reports no additional cardiovascular complaints Gastrointestinal Gastrointestinal: Reports no additional gastrointestinal complaints Physical Exam Vital Signs: Vital Signs: Last Vital Signs Temp 97.2 F 10/20/20 07:59 Pulse 87 10/20/20 10:00 Resp 20 10/20/20 07:59 BP 145/63 H 10/20/20 10:00 Pulse Ox 93 10/20/20 07:59 Body Mass Index 43.7 General: AO X 3, no acute distress Resp: CTA bilateral CVS: S1,S2,RRR GI: soft, non tender, non distended Neuro: motor grossly intact Psych: appropriate affect Objective Data Current Medications Generic Name Dose Route Start Last Admin Trade Name Freq PRN Reason Stop Dose Admin Albuterol/Ipratropium 3 ml 10/14/20 04:11 Albuterol/Iprat 2.5/0.5mg 3 Ml Ampul.Neb INHALE Q2H PRN sob Carvedilol 3.125 mg 10/17/20 09:00 10/20/20 09:29 Carvedilol 3.125 Mg Tablet PO 3.125 mg BID KALPESH Administration Protocol Fluticasone/Vilanterol 1 puff 10/19/20 08:00 10/20/20 07:18 Fluticasone/Vilanterol 100/25 Blst.W.Dev INHALE Not Given RDAILY KALPESH Furosemide 20 mg 10/17/20 09:00 10/20/20 09:29 Furosemide 20 Mg Tablet PO 20 mg DAILY KALPESH Administration Protocol Heparin Sodium (Porcine) 5,000 unit 10/14/20 09:00 10/20/20 09:31 Heparin Sodium,Porcine 5,000 Unit/Ml Vial SUBCUT 5,000 unit Q12H KALPESH Administration Levalbuterol HCl 1.25 mg 10/14/20 12:00 10/20/20 07:18 Levalbuterol Hcl 1.25 Mg/3 Ml Vial.Neb INHALE Not Given RQ4H WHILE AWAKE KALPESH Lorazepam 0.5 mg 10/18/20 10:51 10/19/20 12:58 Lorazepam 0.5 Mg Tablet PO 0.5 mg Q8H PRN Administration Anxiety Losartan Potassium 25 mg 10/17/20 09:00 10/20/20 09:29 Losartan Potassium 25 Mg Tablet PO 25 mg DAILY KALPESH Administration Protocol Nystatin 1 appl 10/15/20 10:15 10/20/20 09:30 Nystatin Powder 15 Gm Bottle TOPICAL 1 appl BID KALPESH Administration Protocol Prednisone 20 mg 10/19/20 09:00 10/20/20 09:29 Prednisone 20 Mg Tablet PO 20 mg DAILY KALPESH Administration Sodium Chloride 3 ml 10/15/20 16:00 10/20/20 09:30 0.9 % Sodium Chloride Flush 3 Ml Syringe IVFLUSH 3 ml QSHIFT KALPESH Administration Labs CBC & Chem 7: 10/20/20 05:50 10/20/20 05:50 Microbiology Microbiology Results: Microbiology 10/13/20 23:50 Blood - Venous Blood Culture - Final No growth after 5 days. 10/13/20 23:50 Blood - Venous Blood Culture - Final No growth after 5 days. Assessment and Plan (1) Diastolic CHF with preserved left ventricular function, NYHA class 2: Status: Acute (2) Hyperkalemia: Status: Acute (3) Cor pulmonale, acute: Status: Acute (4) Altered mental status: Status: Acute (5) Acute hypercapnic respiratory failure: Status: Acute (6) Acute exacerbation of CHF (congestive heart failure): Status: Acute (7) Acute hyperkalemia: Status: Acute Assessment and Plan: 75-year-old female presented with shortness of breath. Was admitted to the ICU for acute on chronic hypoxic and hypercapnic respiratory failure requiring BiPAP and acute on chronic diastolic CHF requiring diuresis. Patient was then transition to high-flow O2. Now doing better and downgraded to medical floor. Acute on chronic hypoxic and hypercapnic respiratory failure secondary to COPD exacerbation and acute on chronic diastolic CHF Wean O2 as tolerated - still on high flow Needs to be set up for noninvasive positive pressure ventilation at home Continue Lasix p.o. and prednisone p.o. Pulmonary following Weight loss HTN losartan, coreg
--- NOTE | 2020-10-20 14:25 | MHC.CM.PN ---
Per family's request, has relayed contact info for Daughters Bethany and Joselyn to MD and MD is agreeable to contact family.
--- NOTE | 2020-10-20 18:30 | PC.NURSE ---
HIGH FLOW NASAL CANNULA WEANED DOWN TO 40L/50%. VARGAS CATHETER REMOVED. PT OOB TO CHAIR THROUGHOUT DAY. ATTEMPTED BM ON COMMODE WITHOUT SUCCESS. STOOL SOFTENER ORDERED. CONTINUE TO WEAN O2 TOLERATED.
[2020-10-20] MEDS: Docusate Sodium 100 MG CAPSULE PO (20:31)
[2020-10-21] VITALS (16 sets, daily range): BP systolic 141–169; BP diastolic 59–84; PULSE 52–96; RESP 18–24; TEMP 36.9–37.3; O2SAT 90–96
--- NOTE | 2020-10-21 05:36 | PC.NURSE ---
Pts daughter Bethany (Ca) called for update on pt. Pts daughter is her HCP, pts daughter explained that the patient and herself would like the patient to be discharged with home services rather than [facility] as they are anxious and fearful d/t Covid. Pt states she will call back to speak with CM reguarding this issue.
[2020-10-21 06:54] LABS: Anion Gap 15 (12-20); Blood Urea Nitrogen 23 mg/dL (9-16); Calcium 8.6 mg/dL (8.4-10.2); Carbon Dioxide 34 mmol/L (22-29); Chloride 95 mmol/L (96-108); Creatinine Clr Calc Pharmacy 99.8; Estimated Glomerular Filt Rate > 60; Glucose Fasting 89 mg/dL (60-99); MANUAL DIFF FLAG SCAN; PLT CLUMP 1; SCAN SMEAR FLAG 1; Sodium 140 mmol/L (135-145)
[2020-10-21 06:55] LABS: Eosinophils Absolute Auto 0.1 X10*3/uL (0.0-0.4); Eosinophils Percent Auto 0.7 % (0-4); Hematocrit 51.4 % (37-47); Hemoglobin 15.8 g/dl (12.0-16.0); Imm Gran Abs Auto 0.03 X10*3/uL (0.00-0.03); Imm Gran Pct Auto 0.3 % (0.0-0.4); Lymphocytes Absolute Auto 1.4 X10*3/uL (1.2-4.9); Lymphocytes Percent Auto 14.1 % (20-40); Mean Corpuscular HGB Conc 30.7 g/dl (31.0-35.0); Mean Corpuscular Hemoglobin 29.1 pg (27.0-33.0); Mean Corpuscular Volume 94.7 fL (80-98); Monocytes Absolute Auto 1.1 X10*3/uL (0.1-1.2); Monocytes Percent Auto 11.3 % (2-11); Neutrophils Absolute Auto 7.3 X10*3/uL (2.0-8.3); Neutrophils Percent Auto 73.6 % (45-73); Red Blood Count 5.43 X10*6/uL (4.20-5.50); Red Cell Distribution Width 13.7 % (11.0-16.0); White Blood Count 9.9 X10*3/uL (4.8-10.8)
[2020-10-21] MEDS: Fluticasone/Vilanterol 100/25 BLST.W.DEV 1 PUFF INHALE (08:09)
[2020-10-21] MEDS: levalbuterol HCL 1.25 MG/3 ML VIAL.NEB INHALE ×2 (08:09→11:07)
[2020-10-21] MEDS: Heparin Sodium,Porcine 5,000 UNIT/ML VIAL 5000 UNIT SUBCUT ×2 (08:11→21:51)
[2020-10-21] MEDS: 0.9 % Sodium Chloride Flush 3 ML SYRINGE IVFLUSH ×3 (08:11→21:51)
[2020-10-21] MEDS: carvediloL 3.125 MG TABLET PO ×2 (08:11→21:51)
[2020-10-21] MEDS: Docusate Sodium 100 MG CAPSULE PO ×2 (08:11→21:51)
[2020-10-21] MEDS: Losartan Potassium 25 MG TABLET PO (08:11)
[2020-10-21] MEDS: Nystatin Powder 15 GM BOTTLE 1 APPL TOPICAL ×2 (08:12→21:52)
[2020-10-21] MEDS: predniSONE 20 MG TABLET PO (08:12)
[2020-10-21] MEDS: Furosemide 20 MG TABLET PO (08:12)
[2020-10-21 09:13] LABS: SLIDE REVIEW VERIFIED
--- NOTE | 2020-10-21 10:58 | MHC.CM.PN ---
CM spoke with patient's dtr's Sweetie by phone who states they do not want patient to go to rehab. Instructed patient is on high flow O2 and O2 needs would have to decrease prior to discharge. Patient has been accepted by [facility] and patient also has O2 in the home. Discharge plan is home with services from [facility]. Family will provide transport. CM will continue to follow for discharge needs.
--- NOTE | 2020-10-21 12:32 | HO.PM.IMPN ---
Subjective Subjective Date of Service: 10/21/20 Interval History: improving Cardiovascular Cardiovascular: Reports no additional cardiovascular complaints Respiratory Respiratory: Reports no additional respiratory complaints Physical Exam Vital Signs: Vital Signs: Last Vital Signs Temp 98.6 F 10/21/20 11:24 Pulse 95 10/21/20 12:01 Resp 20 10/21/20 11:24 BP 144/70 H 10/21/20 12:01 Pulse Ox 90 L 10/21/20 12:01 Body Mass Index 43.7 General: AO X 3, no acute distress Resp: diminished CVS: S1,S2,RRR GI: soft, non tender, non distended Neuro: motor grossly intact Psych: appropriate affect Objective Data Current Medications Generic Name Dose Route Start Last Admin Trade Name Freq PRN Reason Stop Dose Admin Albuterol/Ipratropium 3 ml 10/21/20 06:17 Albuterol/Iprat 2.5/0.5mg 3 Ml Ampul.Neb INHALE Q2H PRN sob Bisacodyl 10 mg 10/21/20 10:15 Bisacodyl 10 Mg Supp.Rect [place] DAILY PRN Constipation Carvedilol 3.125 mg 10/17/20 09:00 10/21/20 08:11 Carvedilol 3.125 Mg Tablet PO 3.125 mg BID KALPESH Administration Protocol Docusate Sodium 100 mg 10/20/20 21:00 10/21/20 08:11 Docusate Sodium 100 Mg Capsule PO 100 mg BID KALPESH Administration Fluticasone/Vilanterol 1 puff 10/19/20 08:00 10/21/20 08:09 Fluticasone/Vilanterol 100/25 Blst.W.Dev INHALE 1 puff RDAILY KALPESH Administration Furosemide 20 mg 10/17/20 09:00 10/21/20 08:12 Furosemide 20 Mg Tablet PO 20 mg DAILY KALPESH Administration Protocol Heparin Sodium (Porcine) 5,000 unit 10/14/20 09:00 10/21/20 08:11 Heparin Sodium,Porcine 5,000 Unit/Ml Vial SUBCUT 5,000 unit Q12H KALPESH Administration Lorazepam 0.5 mg 10/18/20 10:51 10/19/20 12:58 Lorazepam 0.5 Mg Tablet PO 0.5 mg Q8H PRN Administration Anxiety Losartan Potassium 25 mg 10/17/20 09:00 10/21/20 08:11 Losartan Potassium 25 Mg Tablet PO 25 mg DAILY KALPESH Administration Protocol Nystatin 1 appl 10/15/20 10:15 10/21/20 08:12 Nystatin Powder 15 Gm Bottle TOPICAL 1 appl BID KALPESH Administration Protocol Polyethylene Glycol 17 gm 10/21/20 10:15 Polyethylene Glycol 3350 17 Gm Powd.Pack PO DAILY PRN constipation Prednisone 20 mg 10/19/20 09:00 10/21/20 08:12 Prednisone 20 Mg Tablet PO 20 mg DAILY KALPESH Administration Sodium Chloride 3 ml 10/15/20 16:00 10/21/20 08:11 0.9 % Sodium Chloride Flush 3 Ml Syringe IVFLUSH 3 ml QSHIFT KALPESH Administration Labs CBC & Chem 7: 10/21/20 04:27 10/21/20 04:27 Microbiology Microbiology Results: Microbiology 10/13/20 23:50 Blood - Venous Blood Culture - Final No growth after 5 days. 10/13/20 23:50 Blood - Venous Blood Culture - Final No growth after 5 days. Assessment and Plan (1) Diastolic CHF with preserved left ventricular function, NYHA class 2: Status: Acute (2) Hyperkalemia: Status: Acute (3) Cor pulmonale, acute: Status: Acute (4) Altered mental status: Status: Acute (5) Acute hypercapnic respiratory failure: Status: Acute (6) Acute exacerbation of CHF (congestive heart failure): Status: Acute (7) Acute hyperkalemia: Status: Acute Assessment and Plan: 75-year-old female presented with shortness of breath. Was admitted to the ICU for acute on chronic hypoxic and hypercapnic respiratory failure requiring BiPAP and acute on chronic diastolic CHF requiring diuresis. Patient was then transition to high-flow O2. Now doing better and downgraded to medical floor. Acute on chronic hypoxic and hypercapnic respiratory failure secondary to COPD exacerbation and acute on chronic diastolic CHF Wean O2 as tolerated - still on high flow for now Needs to be set up for noninvasive positive pressure ventilation at home Continue Lasix p.o. and prednisone p.o. Pulmonary following Weight loss family wants to take patient home as opposed to rehab HTN losartan, coreg
[2020-10-21] MEDS: polyethylene glycoL 3350 17 GM POWD.PACK PO (14:16)
--- NOTE | 2020-10-21 14:44 | MHC.CLN ---
F/U 100% PO DIET RX: CHOPPED-WILL ADD 2GM NA TO CURRENT DIET R/T HX CHF 1300 CALORIES PER DAY WILL PROMOTE SLOW WT LOSS FOLLOWING
[2020-10-22] VITALS (16 sets, daily range): BP systolic 106–180; BP diastolic 56–100; PULSE 82–102; RESP 18–20; TEMP 36.4–36.8; O2SAT 90–97; BMI 43.0
[2020-10-22] MEDS: Fluticasone/Vilanterol 100/25 BLST.W.DEV 1 PUFF INHALE (07:20)
[2020-10-22] MEDS: Heparin Sodium,Porcine 5,000 UNIT/ML VIAL 5000 UNIT SUBCUT ×2 (08:08→20:12)
[2020-10-22] MEDS: 0.9 % Sodium Chloride Flush 3 ML SYRINGE IVFLUSH ×3 (08:08→20:12)
[2020-10-22] MEDS: Docusate Sodium 100 MG CAPSULE PO ×2 (08:09→20:08)
[2020-10-22] MEDS: predniSONE 20 MG TABLET PO (08:09)
[2020-10-22] MEDS: Furosemide 20 MG TABLET PO (08:15)
[2020-10-22] MEDS: Nystatin Powder 15 GM BOTTLE 1 APPL TOPICAL ×2 (08:15→20:12)
[2020-10-22] MEDS: Losartan Potassium 25 MG TABLET PO (08:15)
[2020-10-22] MEDS: carvediloL 3.125 MG TABLET PO ×2 (08:15→20:08)
--- NOTE | 2020-10-22 13:23 | HO.PM.IMPN ---
Subjective Subjective Date of Service: 10/22/20 Interval History: tired Cardiovascular Cardiovascular: Reports no additional cardiovascular complaints Gastrointestinal Gastrointestinal: Reports no additional gastrointestinal complaints Physical Exam Vital Signs: Vital Signs: Last Vital Signs Temp 97.5 F 10/22/20 11:06 Pulse 96 10/22/20 11:06 Resp 18 10/22/20 11:22 BP 128/74 10/22/20 11:06 Pulse Ox 94 10/22/20 11:06 Body Mass Index 43.0 General: AO X 3, no acute distress Resp: diminished CVS: S1,S2,RRR GI: soft, non tender, non distended Neuro: motor grossly intact Psych: appropriate affect Objective Data Current Medications Generic Name Dose Route Start Last Admin Trade Name Freq PRN Reason Stop Dose Admin Albuterol/Ipratropium 3 ml 10/21/20 06:17 Albuterol/Iprat 2.5/0.5mg 3 Ml Ampul.Neb INHALE Q2H PRN sob Bisacodyl 10 mg 10/21/20 10:15 Bisacodyl 10 Mg Supp.Rect [place] DAILY PRN Constipation Carvedilol 3.125 mg 10/17/20 09:00 10/22/20 08:15 Carvedilol 3.125 Mg Tablet PO 3.125 mg BID KALPESH Administration Protocol Docusate Sodium 100 mg 10/20/20 21:00 10/22/20 08:09 Docusate Sodium 100 Mg Capsule PO 100 mg BID KALPESH Administration Fluticasone/Vilanterol 1 puff 10/19/20 08:00 10/22/20 07:20 Fluticasone/Vilanterol 100/25 Blst.W.Dev INHALE 1 puff RDAILY KALPESH Administration Furosemide 20 mg 10/17/20 09:00 10/22/20 08:15 Furosemide 20 Mg Tablet PO 20 mg DAILY KALPESH Administration Protocol Heparin Sodium (Porcine) 5,000 unit 10/14/20 09:00 10/22/20 08:08 Heparin Sodium,Porcine 5,000 Unit/Ml Vial SUBCUT 5,000 unit Q12H KALPESH Administration Lorazepam 0.5 mg 10/18/20 10:51 10/19/20 12:58 Lorazepam 0.5 Mg Tablet PO 0.5 mg Q8H PRN Administration Anxiety Losartan Potassium 25 mg 10/17/20 09:00 10/22/20 08:15 Losartan Potassium 25 Mg Tablet PO 25 mg DAILY KALPESH Administration Protocol Nystatin 1 appl 10/15/20 10:15 10/22/20 08:15 Nystatin Powder 15 Gm Bottle TOPICAL 1 appl BID KALPESH Administration Protocol Polyethylene Glycol 17 gm 10/21/20 10:15 10/21/20 14:16 Polyethylene Glycol 3350 17 Gm Powd.Pack PO 17 gm DAILY PRN Administration constipation Prednisone 20 mg 10/19/20 09:00 10/22/20 08:09 Prednisone 20 Mg Tablet PO 20 mg DAILY KALPESH Administration Sodium Chloride 3 ml 10/15/20 16:00 10/22/20 08:08 0.9 % Sodium Chloride Flush 3 Ml Syringe IVFLUSH 3 ml QSHIFT KALPESH Administration Labs CBC & Chem 7: 10/21/20 04:27 10/21/20 04:27 Microbiology Microbiology Results: Microbiology 10/13/20 23:50 Blood - Venous Blood Culture - Final No growth after 5 days. 10/13/20 23:50 Blood - Venous Blood Culture - Final No growth after 5 days. Assessment and Plan (1) Diastolic CHF with preserved left ventricular function, NYHA class 2: Status: Acute (2) Hyperkalemia: Status: Acute (3) Cor pulmonale, acute: Status: Acute (4) Altered mental status: Status: Acute (5) Acute hypercapnic respiratory failure: Status: Acute (6) Acute exacerbation of CHF (congestive heart failure): Status: Acute (7) Acute hyperkalemia: Status: Acute Assessment and Plan: 75-year-old female presented with shortness of breath. Was admitted to the ICU for acute on chronic hypoxic and hypercapnic respiratory failure requiring BiPAP and acute on chronic diastolic CHF requiring diuresis. Patient was then transition to high-flow O2. Now doing better and downgraded to medical floor. Acute on chronic hypoxic and hypercapnic respiratory failure secondary to COPD exacerbation and acute on chronic diastolic CHF Wean O2 as tolerated - still on high flow for now Needs to be set up for noninvasive positive pressure ventilation at home Continue Lasix p.o. and prednisone p.o. Pulmonary follow up Weight loss family wants to take patient home as opposed to rehab HTN losartan, coreg
--- NOTE | 2020-10-22 15:36 | PM.PNPUL ---
Subjective Subjective Date of Service: 10/22/20 Interval history: 75-year-old lady with underlying morbid obesity, severe supplemental oxygen dependent COPD, and congestive heart failure. Hospitalized with acute on chronic congestive heart failure, improving significantly with diuresis. However, continues to require high amount of supplemental oxygen. Patient states that she is feeling significantly better. Objective Data Labs CBC & Chem 7: 10/21/20 04:27 10/21/20 04:27 Microbiology Microbiology Results: Microbiology 10/13/20 23:50 Blood - Venous Blood Culture - Final No growth after 5 days. 10/13/20 23:50 Blood - Venous Blood Culture - Final No growth after 5 days. Review of Systems Cardiovascular: Denies chest pain, Reports dyspnea and Reports orthopnea Respiratory: Denies cough, Reports dyspnea and Denies wheezing Allergic/Immunologic: Denies wheezing Physical Exam Vital Signs: Vital Signs: Last Vital Signs Temp 97.5 F 10/22/20 11:06 Pulse 96 10/22/20 11:06 Resp 18 10/22/20 11:22 BP 128/74 10/22/20 11:06 Pulse Ox 94 10/22/20 11:06 Body Mass Index 43.0 Const: General: no acute distress, alert and awake Nutritional Appearance: obese Eyes: Sclerae: sclerae normal EOM: EOMs intact bilaterally Neck: Neck: Yes no lymphadenopathy, Yes trachea midline and Yes supple Resp: Effort & Inspection: normal respiratory effort and no respiratory distress Auscultation: crackles (Bibasilar) Cardio: Rate: regular rate Rhythm: regular rhythm Heart sounds: no gallops, no murmurs and no rubs GI: Palpation (GI): Soft to palpation and Other GI palpation findings present ( Nontender) Auscultation: normal bowel sounds Extrem: General: No clubbing, No cyanosis and Yes edema (1+ bilateral) Assessment and Plan Assessment and plan (1) Acute hypercapnic respiratory failure: Status: Acute Assessment and Plan: Impression: 75-year-old lady with underlying supplemental oxygen dependent COPD, congestive heart failure, and morbid obesity admitted with exacerbation of underlying congestive heart failure, improving slowly with diuresis. Recommendations: Agree with continuation of Breo and tapering down of prednisone. Consider increasing diuresis. (2) Acute and chronic respiratory failure with hypoxia: Status: Acute Time Spent With Patient Time with patient: 25 - 35 minutes
[2020-10-22] MEDS: Furosemide 40 MG/4 ML VIAL IVPUSH (17:25)
[2020-10-23] VITALS (12 sets, daily range): BP systolic 131–164; BP diastolic 63–76; PULSE 70–98; RESP 18–22; TEMP 36.6–36.9; O2SAT 90–95
[2020-10-23 06:40] LABS: MANUAL DIFF FLAG NO
[2020-10-23 06:50] LABS: Basophils Percent Auto 0.1 % (0-2); Eosinophils Absolute Auto 0.1 X10*3/uL (0.0-0.4); Eosinophils Percent Auto 0.8 % (0-4); Hematocrit 51.5 % (37-47); Imm Gran Abs Auto 0.04 X10*3/uL (0.00-0.03); Imm Gran Pct Auto 0.4 % (0.0-0.4); Lymphocytes Absolute Auto 1.8 X10*3/uL (1.2-4.9); Lymphocytes Percent Auto 17.7 % (20-40); Mean Corpuscular HGB Conc 31.1 g/dl (31.0-35.0); Mean Corpuscular Hemoglobin 29.3 pg (27.0-33.0); Mean Corpuscular Volume 94.1 fL (80-98); Mean Platelet Volume 12.8 fL (9.4-12.3); Monocytes Absolute Auto 1.4 X10*3/uL (0.1-1.2); Monocytes Percent Auto 14.5 % (2-11); Neutrophils Absolute Auto 6.6 X10*3/uL (2.0-8.3); Neutrophils Percent Auto 66.5 % (45-73); Red Blood Count 5.47 X10*6/uL (4.20-5.50); Red Cell Distribution Width 13.7 % (11.0-16.0); White Blood Count 9.9 X10*3/uL (4.8-10.8)
[2020-10-23 07:10] LABS: Anion Gap 16 (12-20); Blood Urea Nitrogen 22 mg/dL (9-16); Calcium 9.2 mg/dL (8.4-10.2); Carbon Dioxide 38 mmol/L (22-29); Chloride 92 mmol/L (96-108); Creatinine Clr Calc Pharmacy 92.7; Estimated Glomerular Filt Rate > 60; Glucose Fasting 98 mg/dL (60-99); Potassium 4.6 mmol/l (3.3-5.1); Sodium 141 mmol/L (135-145)
[2020-10-23] MEDS: Fluticasone/Vilanterol 100/25 BLST.W.DEV 1 PUFF INHALE (08:39)
[2020-10-23] MEDS: carvediloL 3.125 MG TABLET PO ×2 (08:59→21:47)
[2020-10-23] MEDS: predniSONE 10 MG TABLET PO (09:00)
[2020-10-23] MEDS: Losartan Potassium 25 MG TABLET PO (09:00)
[2020-10-23] MEDS: Docusate Sodium 100 MG CAPSULE PO ×2 (09:00→21:47)
[2020-10-23] MEDS: Furosemide 40 MG/4 ML VIAL IVPUSH ×2 (09:01→16:57)
[2020-10-23] MEDS: 0.9 % Sodium Chloride Flush 3 ML SYRINGE IVFLUSH ×3 (09:03→21:47)
[2020-10-23] MEDS: Heparin Sodium,Porcine 5,000 UNIT/ML VIAL 5000 UNIT SUBCUT ×2 (09:03→21:47)
[2020-10-23] MEDS: Nystatin Powder 15 GM BOTTLE 1 APPL TOPICAL ×2 (09:12→21:49)
--- NOTE | 2020-10-23 11:31 | HO.PM.IMPN ---
Subjective Subjective Date of Service: 10/23/20 Interval History: unchanged Cardiovascular Cardiovascular: Reports no additional cardiovascular complaints Gastrointestinal Gastrointestinal: Reports no additional gastrointestinal complaints Physical Exam Vital Signs: Vital Signs: Last Vital Signs Temp 98.2 F 10/23/20 08:00 Pulse 97 10/23/20 11:12 Resp 22 H 10/23/20 08:40 BP 164/74 H 10/23/20 11:12 Pulse Ox 93 10/23/20 08:00 Body Mass Index 43.0 General: AO X 3, no acute distress Resp: CTA bilateral CVS: S1,S2,RRR GI: soft, non tender, non distended Neuro: motor grossly intact Psych: appropriate affect Objective Data Current Medications Generic Name Dose Route Start Last Admin Trade Name Freq PRN Reason Stop Dose Admin Albuterol/Ipratropium 3 ml 10/21/20 06:17 Albuterol/Iprat 2.5/0.5mg 3 Ml Ampul.Neb INHALE Q2H PRN sob Bisacodyl 10 mg 10/21/20 10:15 Bisacodyl 10 Mg Supp.Rect [place] DAILY PRN Constipation Carvedilol 3.125 mg 10/17/20 09:00 10/23/20 08:59 Carvedilol 3.125 Mg Tablet PO 3.125 mg BID KALPESH Administration Protocol Docusate Sodium 100 mg 10/20/20 21:00 10/23/20 09:00 Docusate Sodium 100 Mg Capsule PO 100 mg BID KALPESH Administration Fluticasone/Vilanterol 1 puff 10/19/20 08:00 10/23/20 08:39 Fluticasone/Vilanterol 100/25 Blst.W.Dev INHALE 1 puff RDAILY KALPESH Administration Furosemide 40 mg 10/22/20 18:00 10/23/20 09:01 Furosemide 40 Mg/4 Ml Vial IVPUSH 40 mg BID@0900,1800 KALPESH Administration Protocol Heparin Sodium (Porcine) 5,000 unit 10/14/20 09:00 10/23/20 09:03 Heparin Sodium,Porcine 5,000 Unit/Ml Vial SUBCUT 5,000 unit Q12H KALPESH Administration Losartan Potassium 25 mg 10/17/20 09:00 10/23/20 09:00 Losartan Potassium 25 Mg Tablet PO 25 mg DAILY KALPESH Administration Protocol Nystatin 1 appl 10/15/20 10:15 10/23/20 09:12 Nystatin Powder 15 Gm Bottle TOPICAL 1 appl BID KALPESH Administration Protocol Polyethylene Glycol 17 gm 10/21/20 10:15 10/21/20 14:16 Polyethylene Glycol 3350 17 Gm Powd.Pack PO 17 gm DAILY PRN Administration constipation Prednisone 10 mg 10/23/20 09:00 10/23/20 09:00 Prednisone 10 Mg Tablet PO 10 mg DAILY KALPESH Administration Sodium Chloride 3 ml 10/15/20 16:00 10/23/20 09:03 0.9 % Sodium Chloride Flush 3 Ml Syringe IVFLUSH 3 ml QSHIFT KALPESH Administration Labs CBC & Chem 7: 10/23/20 05:49 10/23/20 05:49 Microbiology Microbiology Results: Microbiology 10/13/20 23:50 Blood - Venous Blood Culture - Final No growth after 5 days. 10/13/20 23:50 Blood - Venous Blood Culture - Final No growth after 5 days. Assessment and Plan (1) Diastolic CHF with preserved left ventricular function, NYHA class 2: Status: Acute (2) Hyperkalemia: Status: Acute (3) Cor pulmonale, acute: Status: Acute (4) Altered mental status: Status: Acute (5) Acute hypercapnic respiratory failure: Status: Acute (6) Acute exacerbation of CHF (congestive heart failure): Status: Acute (7) Acute hyperkalemia: Status: Acute Assessment and Plan: 75-year-old female presented with shortness of breath. Was admitted to the ICU for acute on chronic hypoxic and hypercapnic respiratory failure requiring BiPAP and acute on chronic diastolic CHF requiring diuresis. Patient was then transition to high-flow O2. Now doing better and downgraded to medical floor. Acute on chronic hypoxic and hypercapnic respiratory failure secondary to COPD exacerbation and acute on chronic diastolic CHF Wean O2 as tolerated - still on high flow for now Needs to be set up for noninvasive positive pressure ventilation at home wean prednisone, increased lasix to 40mg iv bid Pulmonary following Weight loss family wants to take patient home as opposed to rehab HTN losartan, coreg
--- NOTE | 2020-10-23 13:11 | MHC.CM.PN ---
Patient still requires high flow O2, sat is 93% on 40 liters O2 with FIO2 at 50%. Discharge plan is home with [facility] services. Dtr will provide transportation. CM will continue to follow patient for discharge needs.
[2020-10-24] VITALS (7 sets, daily range): BP systolic 139–161; BP diastolic 75–83; PULSE 84–100; RESP 18–22; TEMP 36.4–37.2; O2SAT 90–96
[2020-10-24 07:02] LABS: Basophils Percent Auto 0.1 % (0-2); Hemoglobin 15.3 g/dl (12.0-16.0); Imm Gran Abs Auto 0.04 X10*3/uL (0.00-0.03); Imm Gran Pct Auto 0.4 % (0.0-0.4); MANUAL DIFF FLAG SCAN; Mean Corpuscular Volume 94.2 fL (80-98); PLT CLUMP 1; Red Cell Distribution Width 13.8 % (11.0-16.0); SCAN SMEAR FLAG 1
[2020-10-24 07:04] LABS: Eosinophils Absolute Auto 0.1 X10*3/uL (0.0-0.4); Eosinophils Percent Auto 0.9 % (0-4); Hematocrit 48.7 % (37-47); Lymphocytes Absolute Auto 1.7 X10*3/uL (1.2-4.9); Lymphocytes Percent Auto 16.9 % (20-40); Mean Corpuscular HGB Conc 31.4 g/dl (31.0-35.0); Mean Corpuscular Hemoglobin 29.6 pg (27.0-33.0); Mean Platelet Volume 12.6 fL (9.4-12.3); Monocytes Absolute Auto 1.5 X10*3/uL (0.1-1.2); Monocytes Percent Auto 15.3 % (2-11); Neutrophils Absolute Auto 6.5 X10*3/uL (2.0-8.3); Neutrophils Percent Auto 66.4 % (45-73); Red Blood Count 5.17 X10*6/uL (4.20-5.50); White Blood Count 9.8 X10*3/uL (4.8-10.8)
[2020-10-24 07:18] LABS: Platelet Count 98 X10*3/uL (160-400)
[2020-10-24 07:28] LABS: Anion Gap 16 (12-20); Blood Urea Nitrogen 22 mg/dL (9-16); Calcium 8.8 mg/dL (8.4-10.2); Carbon Dioxide 36 mmol/L (22-29); Chloride 92 mmol/L (96-108); Creatinine Clr Calc Pharmacy 102.2; Estimated Glomerular Filt Rate > 60; Glucose Fasting 81 mg/dL (60-99); Sodium 140 mmol/L (135-145)
[2020-10-24] MEDS: Fluticasone/Vilanterol 100/25 BLST.W.DEV 1 PUFF INHALE (07:49)
[2020-10-24 08:49] LABS: SLIDE REVIEW VERIFIED
[2020-10-24] MEDS: Heparin Sodium,Porcine 5,000 UNIT/ML VIAL 5000 UNIT SUBCUT ×2 (09:20→22:30)
[2020-10-24] MEDS: Furosemide 40 MG/4 ML VIAL IVPUSH ×2 (09:22→18:49)
[2020-10-24] MEDS: 0.9 % Sodium Chloride Flush 3 ML SYRINGE IVFLUSH ×2 (09:26→16:10)
[2020-10-24] MEDS: predniSONE 10 MG TABLET PO (09:27)
[2020-10-24] MEDS: Docusate Sodium 100 MG CAPSULE PO ×2 (09:27→22:29)
[2020-10-24] MEDS: carvediloL 3.125 MG TABLET PO ×2 (09:27→22:29)
[2020-10-24] MEDS: Losartan Potassium 25 MG TABLET PO (09:27)
[2020-10-24] MEDS: Nystatin Powder 15 GM BOTTLE 1 APPL TOPICAL ×2 (09:32→22:29)
--- NOTE | 2020-10-24 13:23 | HO.PM.IMPN ---
Subjective Subjective Date of Service: 10/24/20 Interval History: improving Cardiovascular Cardiovascular: Reports no additional cardiovascular complaints Gastrointestinal Gastrointestinal: Reports no additional gastrointestinal complaints Physical Exam Vital Signs: Vital Signs: Last Vital Signs Temp 97.6 F 10/24/20 11:30 Pulse 100 10/24/20 11:30 Resp 22 H 10/24/20 11:30 BP 150/81 H 10/24/20 11:30 Pulse Ox 91 L 10/24/20 11:30 Body Mass Index 43.0 General: AO X 3, no acute distress Resp: CTA bilateral CVS: S1,S2,RRR GI: soft, non tender, non distended Neuro: motor grossly intact Psych: appropriate affect Objective Data Current Medications Generic Name Dose Route Start Last Admin Trade Name Freq PRN Reason Stop Dose Admin Albuterol/Ipratropium 3 ml 10/21/20 06:17 Albuterol/Iprat 2.5/0.5mg 3 Ml Ampul.Neb INHALE Q2H PRN sob Bisacodyl 10 mg 10/21/20 10:15 Bisacodyl 10 Mg Supp.Rect [place] DAILY PRN Constipation Carvedilol 3.125 mg 10/17/20 09:00 10/24/20 09:27 Carvedilol 3.125 Mg Tablet PO 3.125 mg BID KALPESH Administration Protocol Docusate Sodium 100 mg 10/20/20 21:00 10/24/20 09:27 Docusate Sodium 100 Mg Capsule PO 100 mg BID KALPESH Administration Fluticasone/Vilanterol 1 puff 10/19/20 08:00 10/24/20 07:49 Fluticasone/Vilanterol 100/25 Blst.W.Dev INHALE 1 puff RDAILY KALPESH Administration Furosemide 40 mg 10/22/20 18:00 10/24/20 09:22 Furosemide 40 Mg/4 Ml Vial IVPUSH 40 mg BID@0900,1800 KALPESH Administration Protocol Heparin Sodium (Porcine) 5,000 unit 10/14/20 09:00 10/24/20 09:20 Heparin Sodium,Porcine 5,000 Unit/Ml Vial SUBCUT 5,000 unit Q12H KALPESH Administration Losartan Potassium 25 mg 10/17/20 09:00 10/24/20 09:27 Losartan Potassium 25 Mg Tablet PO 25 mg DAILY KALPESH Administration Protocol Nystatin 1 appl 10/15/20 10:15 10/24/20 09:32 Nystatin Powder 15 Gm Bottle TOPICAL 1 appl BID KALPESH Administration Protocol Polyethylene Glycol 17 gm 10/21/20 10:15 10/21/20 14:16 Polyethylene Glycol 3350 17 Gm Powd.Pack PO 17 gm DAILY PRN Administration constipation Prednisone 10 mg 10/23/20 09:00 10/24/20 09:27 Prednisone 10 Mg Tablet PO 10 mg DAILY KALPESH Administration Sodium Chloride 3 ml 10/15/20 16:00 10/24/20 09:26 0.9 % Sodium Chloride Flush 3 Ml Syringe IVFLUSH 3 ml QSHIFT KALPESH Administration Labs CBC & Chem 7: 10/24/20 05:24 10/24/20 05:24 Microbiology Microbiology Results: Microbiology 10/13/20 23:50 Blood - Venous Blood Culture - Final No growth after 5 days. 10/13/20 23:50 Blood - Venous Blood Culture - Final No growth after 5 days. Assessment and Plan (1) Diastolic CHF with preserved left ventricular function, NYHA class 2: Status: Acute (2) Hyperkalemia: Status: Acute (3) Cor pulmonale, acute: Status: Acute (4) Altered mental status: Status: Acute (5) Acute hypercapnic respiratory failure: Status: Acute (6) Acute exacerbation of CHF (congestive heart failure): Status: Acute (7) Acute hyperkalemia: Status: Acute Assessment and Plan: 75-year-old female presented with shortness of breath. Was admitted to the ICU for acute on chronic hypoxic and hypercapnic respiratory failure requiring BiPAP and acute on chronic diastolic CHF requiring diuresis. Patient was then transition to high-flow O2. Now doing better and downgraded to medical floor. Acute on chronic hypoxic and hypercapnic respiratory failure secondary to COPD exacerbation and acute on chronic diastolic CHF Wean O2 as tolerated - was able to be taken off high flow yesterday Needs to be set up for noninvasive positive pressure ventilation at home wean prednisone, continue lasix to 40mg iv bid Pulmonary following Weight loss family wants to take patient home as opposed to rehab HTN losartan, coreg
[2020-10-24 22:29] LABS: Glucose, Whole Blood 103 mg/dL (60-115)
--- NOTE | 2020-10-24 22:33 | PC.NURSE ---
pt had episode of severe confusion, removed her IV , Oxygen and gown. She had been alert and oriented all day. Pt was saying she was waiting for a bus and that she couldn't feel anything. Replaced the oxygen , to bedside. PT then oriented to baseline and able to answer questions appropriately. Camera to room to monitor for pt removing oxygen and IV
[2020-10-25] VITALS (11 sets, daily range): BP systolic 114–136; BP diastolic 58–86; PULSE 51–95; RESP 18–20; TEMP 36.3–37.2; O2SAT 91–96; BMI 41.6
[2020-10-25] MEDS: 0.9 % Sodium Chloride Flush 3 ML SYRINGE IVFLUSH ×4 (00:02→20:42)
[2020-10-25 07:07] LABS: MANUAL DIFF FLAG NO
[2020-10-25 07:14] LABS: Basophils Percent Auto 0.2 % (0-2); Eosinophils Absolute Auto 0.1 X10*3/uL (0.0-0.4); Eosinophils Percent Auto 0.6 % (0-4); Hematocrit 49.1 % (37-47); Hemoglobin 15.2 g/dl (12.0-16.0); Imm Gran Abs Auto 0.05 X10*3/uL (0.00-0.03); Imm Gran Pct Auto 0.5 % (0.0-0.4); Lymphocytes Absolute Auto 1.7 X10*3/uL (1.2-4.9); Lymphocytes Percent Auto 17.8 % (20-40); Mean Corpuscular Hemoglobin 29.1 pg (27.0-33.0); Mean Corpuscular Volume 94.1 fL (80-98); Mean Platelet Volume 12.4 fL (9.4-12.3); Monocytes Absolute Auto 1.4 X10*3/uL (0.1-1.2); Neutrophils Absolute Auto 6.2 X10*3/uL (2.0-8.3); Neutrophils Percent Auto 65.9 % (45-73); Platelet Count 100 X10*3/uL (160-400); Red Blood Count 5.22 X10*6/uL (4.20-5.50); Red Cell Distribution Width 13.8 % (11.0-16.0); White Blood Count 9.5 X10*3/uL (4.8-10.8)
[2020-10-25 07:48] LABS: Anion Gap 16 (12-20); Blood Urea Nitrogen 26 mg/dL (9-16); Calcium 8.8 mg/dL (8.4-10.2); Carbon Dioxide 36 mmol/L (22-29); Chloride 92 mmol/L (96-108); Creatinine Clr Calc Pharmacy 92.7; Estimated Glomerular Filt Rate > 60; Glucose Fasting 88 mg/dL (60-99); Magnesium 2.4 mg/dL (1.6-2.6); Potassium 4.1 mmol/l (3.3-5.1); Sodium 140 mmol/L (135-145)
--- NOTE | 2020-10-25 08:48 | HO.PM.IMPN ---
Subjective Subjective Date of Service: 10/25/20 Interval History: feels better Cardiovascular Cardiovascular: Reports no additional cardiovascular complaints Gastrointestinal Gastrointestinal: Reports no additional gastrointestinal complaints Physical Exam Vital Signs: Vital Signs: Last Vital Signs Temp 97.9 F 10/25/20 07:41 Pulse 89 10/25/20 07:41 Resp 18 10/25/20 07:41 BP 123/58 L 10/25/20 04:48 Pulse Ox 94 10/25/20 07:41 Body Mass Index 43.0 General: AO X 3, no acute distress Resp: diminished CVS: S1,S2,RRR GI: soft, non tender, non distended Neuro: motor grossly intact Psych: poor insight Objective Data Current Medications Generic Name Dose Route Start Last Admin Trade Name Freq PRN Reason Stop Dose Admin Albuterol/Ipratropium 3 ml 10/21/20 06:17 Albuterol/Iprat 2.5/0.5mg 3 Ml Ampul.Neb INHALE Q2H PRN sob Bisacodyl 10 mg 10/21/20 10:15 Bisacodyl 10 Mg Supp.Rect [place] DAILY PRN Constipation Carvedilol 3.125 mg 10/17/20 09:00 10/24/20 22:29 Carvedilol 3.125 Mg Tablet PO 3.125 mg BID KALPESH Administration Protocol Docusate Sodium 100 mg 10/20/20 21:00 10/24/20 22:29 Docusate Sodium 100 Mg Capsule PO 100 mg BID KALPESH Administration Fluticasone/Vilanterol 1 puff 10/19/20 08:00 10/24/20 07:49 Fluticasone/Vilanterol 100/25 Blst.W.Dev INHALE 1 puff RDAILY KALPESH Administration Furosemide 40 mg 10/22/20 18:00 10/24/20 18:49 Furosemide 40 Mg/4 Ml Vial IVPUSH 40 mg BID@0900,1800 KALPESH Administration Protocol Heparin Sodium (Porcine) 5,000 unit 10/14/20 09:00 10/24/20 22:30 Heparin Sodium,Porcine 5,000 Unit/Ml Vial SUBCUT 5,000 unit Q12H KALPESH Administration Losartan Potassium 25 mg 10/17/20 09:00 10/24/20 09:27 Losartan Potassium 25 Mg Tablet PO 25 mg DAILY KALPESH Administration Protocol Nystatin 1 appl 10/15/20 10:15 10/24/20 22:29 Nystatin Powder 15 Gm Bottle TOPICAL 1 appl BID KALPESH Administration Protocol Polyethylene Glycol 17 gm 10/21/20 10:15 10/21/20 14:16 Polyethylene Glycol 3350 17 Gm Powd.Pack PO 17 gm DAILY PRN Administration constipation Prednisone 10 mg 10/23/20 09:00 10/24/20 09:27 Prednisone 10 Mg Tablet PO 10 mg DAILY KALPESH Administration Sodium Chloride 3 ml 10/15/20 16:00 10/25/20 00:02 0.9 % Sodium Chloride Flush 3 Ml Syringe IVFLUSH 3 ml QSHIFT KALPESH Administration Labs CBC & Chem 7: 10/25/20 05:37 10/25/20 05:37 Microbiology Microbiology Results: Microbiology 10/13/20 23:50 Blood - Venous Blood Culture - Final No growth after 5 days. 10/13/20 23:50 Blood - Venous Blood Culture - Final No growth after 5 days. Assessment and Plan (1) Diastolic CHF with preserved left ventricular function, NYHA class 2: Status: Acute (2) Hyperkalemia: Status: Acute (3) Cor pulmonale, acute: Status: Acute (4) Altered mental status: Status: Acute (5) Acute hypercapnic respiratory failure: Status: Acute (6) Acute exacerbation of CHF (congestive heart failure): Status: Acute (7) Acute hyperkalemia: Status: Acute Assessment and Plan: 75-year-old female presented with shortness of breath. Was admitted to the ICU for acute on chronic hypoxic and hypercapnic respiratory failure requiring BiPAP and acute on chronic diastolic CHF requiring diuresis. Patient was then transition to high-flow O2and downgraded to medical floor. Acute on chronic hypoxic and hypercapnic respiratory failure secondary to COPD exacerbation and acute on chronic diastolic CHF Wean O2 as tolerated - was able to be taken off high flow 10/23/2020, continue to wean o2 for goal sat 89-94%, (has o2 at home) Needs to be set up for noninvasive positive pressure ventilation at home wean prednisone, continue lasix to 40mg iv bid - monitor labs, would diurese until bicarb around 40 +/- increase in creatinine Pulmonary following Weight loss family wants to take patient home as opposed to rehab HTN losartan, coreg
[2020-10-25] MEDS: Docusate Sodium 100 MG CAPSULE PO ×2 (09:20→20:42)
[2020-10-25] MEDS: Losartan Potassium 25 MG TABLET PO (09:20)
[2020-10-25] MEDS: Nystatin Powder 15 GM BOTTLE 1 APPL TOPICAL ×2 (09:21→20:41)
[2020-10-25] MEDS: Heparin Sodium,Porcine 5,000 UNIT/ML VIAL 5000 UNIT SUBCUT ×2 (09:21→20:42)
[2020-10-25] MEDS: carvediloL 3.125 MG TABLET PO ×2 (09:21→20:42)
[2020-10-25] MEDS: Furosemide 40 MG/4 ML VIAL IVPUSH ×2 (09:21→17:10)
[2020-10-25] MEDS: predniSONE 10 MG TABLET PO (09:22)
--- NOTE | 2020-10-25 18:34 | PC.NURSE ---
This RN weaned pt from 9L O2 via oxymizer to 7L O2 via oxymizer with good response. Pt O2 sats 94-95% at this time. Will continue to monitor.
[2020-10-26] VITALS (11 sets, daily range): BP systolic 112–142; BP diastolic 59–71; PULSE 78–94; RESP 18–20; TEMP 36.1–37; O2SAT 90–95
[2020-10-26 07:26] LABS: Anion Gap 18 (12-20); Blood Urea Nitrogen 31 mg/dL (9-16); Calcium 9.2 mg/dL (8.4-10.2); Carbon Dioxide 35 mmol/L (22-29); Chloride 90 mmol/L (96-108); Creatinine Clr Calc Pharmacy 82.2; Estimated Glomerular Filt Rate > 60; Glucose Fasting 101 mg/dL (60-99); Magnesium 2.2 mg/dL (1.6-2.6); Potassium 3.7 mmol/l (3.3-5.1); Sodium 139 mmol/L (135-145)
[2020-10-26] MEDS: 0.9 % Sodium Chloride Flush 3 ML SYRINGE IVFLUSH ×2 (09:09→17:27)
[2020-10-26] MEDS: Furosemide 40 MG/4 ML VIAL IVPUSH ×2 (09:10→17:27)
[2020-10-26] MEDS: Heparin Sodium,Porcine 5,000 UNIT/ML VIAL 5000 UNIT SUBCUT ×2 (09:10→20:50)
[2020-10-26] MEDS: predniSONE 10 MG TABLET PO (09:10)
[2020-10-26] MEDS: carvediloL 3.125 MG TABLET PO ×2 (09:10→20:50)
[2020-10-26] MEDS: Docusate Sodium 100 MG CAPSULE PO ×2 (09:10→20:50)
[2020-10-26] MEDS: Losartan Potassium 25 MG TABLET PO (09:10)
[2020-10-26] MEDS: Fluticasone/Vilanterol 100/25 BLST.W.DEV 1 PUFF INHALE (09:15)
[2020-10-26] MEDS: Nystatin Powder 15 GM BOTTLE 1 APPL TOPICAL ×2 (09:17→20:50)
--- NOTE | 2020-10-26 09:50 | MHC.CM.PN ---
CM sppoke with patient and dtr's Suzan by phone and updated to patient's status. Patient is now on 8 liters O2 via oxymizer and continues on IV Lasix at 4o mg BID. Instructed patient will not be able to discharge home yet, O2 level is still too high. Also instructed respiratory has to get Bipap for patient to wear at night prior to discharge. CM will also ask MD to have PT eval and treat prior to discharge to make sure she is safe to go home. Patient and both dtr's verbalize understanding. CM will continue to follow patient for discharge needs.
--- NOTE | 2020-10-26 16:28 | MHC.CM.PN ---
KONSTANTIN spoke with both dtrs sasha and Dulce by phone and updated to patient's discharge plan. Patient will be discharged home tomorrow via BLS transport. Alejandro will meet patient and family in the home tomorrow at 4pm to set up Bipap and do teaching. SUSANNA will be calling day after discharge to set up [facility]NA visit. All above information ralyed to patient face to face and agrees with plan.
--- NOTE | 2020-10-26 17:11 | HO.PM.IMPN ---
Subjective Subjective Date of Service: 10/26/20 Interval History: The patient was seen and evaluated this morning Laying in bed, looks lethargic and tired Denies any fever, chills but reports dyspnea with minimal exertion and shortness of breath No reported other overnight events. Systemic review: No fever, chills or weakness No chest pain, palpitation Reporting shortness of breath and dyspnea , still requiring oxygen supplement No abdominal pain, nausea or vomiting No urinary symptoms No any rash or wounds Physical Exam Vital Signs: Vital Signs: Last Vital Signs Temp 97.8 F 10/26/20 15:36 Pulse 92 10/26/20 15:36 Resp 19 10/26/20 15:36 BP 142/71 H 10/26/20 15:36 Pulse Ox 90 L 10/26/20 15:36 Body Mass Index 41.6 Constitutional : Alert, oriented to self and place, not in distress Neck : Normal inspection, Supple Cardiovascular : RRR, S1 S2, no lower extremity edema Respiratory : Decreased bilateral air entry, basal crackles, wheezes or rhonchi Gastrointestinal: soft, lax, Normal bowel sounds, Non tender Skin : Warm/Dry, No rash Neurological : Alert & oriented x2, No focal deficit Objective Data Current Medications Generic Name Dose Route Start Last Admin Trade Name Freq PRN Reason Stop Dose Admin Albuterol/Ipratropium 3 ml 10/21/20 06:17 Albuterol/Iprat 2.5/0.5mg 3 Ml Ampul.Neb INHALE Q2H PRN sob Bisacodyl 10 mg 10/21/20 10:15 Bisacodyl 10 Mg Supp.Rect CO DAILY PRN Constipation Carvedilol 3.125 mg 10/17/20 09:00 10/26/20 09:10 Carvedilol 3.125 Mg Tablet PO 3.125 mg BID KALPESH Administration Protocol Docusate Sodium 100 mg 10/20/20 21:00 10/26/20 09:10 Docusate Sodium 100 Mg Capsule PO 100 mg BID KALPESH Administration Fluticasone/Vilanterol 1 puff 10/19/20 08:00 10/26/20 09:15 Fluticasone/Vilanterol 100/25 Blst.W.Dev INHALE 1 puff RDAILY KALPESH Administration Furosemide 40 mg 10/22/20 18:00 10/26/20 09:10 Furosemide 40 Mg/4 Ml Vial IVPUSH 40 mg BID@0900,1800 KALPESH Administration Protocol Heparin Sodium (Porcine) 5,000 unit 10/14/20 09:00 10/26/20 09:10 Heparin Sodium,Porcine 5,000 Unit/Ml Vial SUBCUT 5,000 unit Q12H KALPESH Administration Losartan Potassium 25 mg 10/17/20 09:00 10/26/20 09:10 Losartan Potassium 25 Mg Tablet PO 25 mg DAILY KALPESH Administration Protocol Nystatin 1 appl 10/15/20 10:15 10/26/20 09:17 Nystatin Powder 15 Gm Bottle TOPICAL 1 appl BID KALPESH Administration Protocol Polyethylene Glycol 17 gm 10/21/20 10:15 10/21/20 14:16 Polyethylene Glycol 3350 17 Gm Powd.Pack PO 17 gm DAILY PRN Administration constipation Prednisone 10 mg 10/23/20 09:00 10/26/20 09:10 Prednisone 10 Mg Tablet PO 10 mg DAILY KALPESH Administration Sodium Chloride 3 ml 10/15/20 16:00 10/26/20 09:09 0.9 % Sodium Chloride Flush 3 Ml Syringe IVFLUSH 3 ml QSHIFT KALPESH Administration Labs CBC & Chem 7: 10/25/20 05:37 10/26/20 05:28 Microbiology Microbiology Results: Microbiology 10/13/20 23:50 Blood - Venous Blood Culture - Final No growth after 5 days. 10/13/20 23:50 Blood - Venous Blood Culture - Final No growth after 5 days. Assessment and Plan (1) Diastolic CHF with preserved left ventricular function, NYHA class 2: Status: Acute (2) Hyperkalemia: Status: Acute (3) Cor pulmonale, acute: Status: Acute (4) Altered mental status: Status: Acute (5) Acute hypercapnic respiratory failure: Status: Acute (6) Acute exacerbation of CHF (congestive heart failure): Status: Acute (7) Acute hyperkalemia: Status: Acute Assessment and Plan: 75-year-old female presented with shortness of breath. Was admitted to the ICU for acute on chronic hypoxic and hypercapnic respiratory failure requiring BiPAP and acute on chronic diastolic CHF requiring diuresis. Patient was then transition to high-flow O2and downgraded to medical floor. Acute on chronic hypoxic and hypercapnic respiratory failure secondary acute on chronic diastolic CHF Wean O2 as tolerated continue to wean o2 for goal sat 89-94%, (has o2 at home) Plan for noninvasive positive pressure ventilation at home continue lasix to 40mg iv bid Strict intake and output To get cardiology evaluation Weight loss family wants to take patient home as opposed to rehab COPD exacerbation Continue prednisone, wean down Increase bronchodilators HTN losartan, coreg DVT PPX Heparin
[2020-10-26] MEDS: polyethylene glycoL 3350 17 GM POWD.PACK PO (17:27)
[2020-10-26] MEDS: Albuterol/Iprat 2.5/0.5MG 3 ML AMPUL.NEB INHALE (20:13)
[2020-10-26] MEDS: clonazePAM 1 MG TABLET PO (20:50)
[2020-10-27] VITALS (11 sets, daily range): BP systolic 114–147; BP diastolic 56–78; PULSE 86–101; RESP 17–24; TEMP 36.3–37.2; O2SAT 90–95
--- NOTE | 2020-10-27 | CT_ITS ---
EXAMINATION: CT ANGIOGRAM CHEST CLINICAL INFORMATION: Rule out PE. Chest pain COMPARISON: Chest x-ray 10/27/2020 TECHNIQUE: Multiple axial images were obtained through the chest after the administration of 65 mL of Omnipaque 350 intravenous contrast. Extensive vascular post-processing including two-dimensional and three-dimensional reformatted images were created and reviewed on an independent workstation. This CT examination was performed using dose optimization techniques as appropriate, variously including the following: *Automated exposure control *Adjustment of mA and/or kV according to patient size (this includes techniques or standardized protocols for targeted exams where dose is matched to indication/reason for exam; i.e. extremities or head) *Use of iterative reconstruction technique DLP: 439 mGy-cm FINDINGS: There are large filling defects seen in the inferior branch of right pulmonary artery and right middle lobe branches consistent with PE. Main, right and left knee large pulmonary arteries are the left opacified without filling defect to the left Shaquille branches are normal. There is atherosclerotic changes of thoracic aorta without aneurysmal dilatation. There is a small pericardial effusion seen. No abnormal mediastinal lymph nodes seen. Central trachea and the bronchi widely patent. The thyroid gland is enlarged with partially calcified nodule right lobe. There is punctate calcification in the left thyroid lobe as well. There is mild intraspinal extension of right thyroid gland. There is bilateral posterior pleural thickening. No pleural effusion seen. There is bibasilar parenchymal scarring or atelectasis. The upper lungs are clear. The axilla and chest wall appears unremarkable. Imaging through the upper abdomen reveals multiple radiopaque gallstones without wall thickening. Visualized liver, spleen and bilateral adrenal glands are unremarkable. A small 2 cm hypodense exophytic cyst arising from the posterior and uncinate process of the pancreas. Bone windows reveal no lytic or sclerotic process. There are degenerative disc changes and ventral spondylosis. CT/CT angio chest IMPRESSION: Multiple filling defects in the right lung consistent with PE. No evidence of aortic aneurysm or dissection. Small pericardial effusion. Bilateral posterior pleural thickening with bilateral lower lobe atelectasis and/or scarring. 2 cm exophytic cyst in the pancreatic head/uncinate process. Retrospectively this is barely visible on the last images of the previous CT chest 10/15/2020.
[2020-10-27 05:15] LABS: ABG PCO2 48 mmhg (32-45); Base Excess ABG 10.1; HCO3 ABG 36 mmol/l (22-26); Oxygen Saturation ABG 92.5 %; PO2 ABG 62 mmhg (83-108); Pt Ventilation O2% 8 L; pH ABG 7.49 (7.35-7.45)
[2020-10-27 06:48] LABS: Hemoglobin 14.9 g/dl (12.0-16.0); Mean Corpuscular Volume 93.6 fL (80-98); Mean Platelet Volume 12.9 fL (9.4-12.3); Platelet Count 103 X10*3/uL (160-400); Red Blood Count 5.13 X10*6/uL (4.20-5.50); White Blood Count 12.9 X10*3/uL (4.8-10.8)
[2020-10-27 07:16] LABS: Anion Gap 16 (12-20); Blood Urea Nitrogen 30 mg/dL (9-16); Calcium 8.9 mg/dL (8.4-10.2); Carbon Dioxide 36 mmol/L (22-29); Chloride 93 mmol/L (96-108); Creatinine Clr Calc Pharmacy 88.4; Estimated Glomerular Filt Rate > 60; Glucose Random 88 mg/dL (60-115); Potassium 4.1 mmol/l (3.3-5.1); Sodium 141 mmol/L (135-145)
[2020-10-27 07:24] LABS: B Type Natriuretic Peptide 32 pg/mL (<100)
[2020-10-27] MEDS: Fluticasone/Vilanterol 100/25 BLST.W.DEV 1 PUFF INHALE (07:59)
[2020-10-27] MEDS: Albuterol/Iprat 2.5/0.5MG 3 ML AMPUL.NEB INHALE ×4 (07:59→19:35)
--- NOTE | 2020-10-27 08:00 | XR_ITS ---
EXAMINATION: XR CHEST CLINICAL INFORMATION: Follow-up hypoxia. CHF exacerbation. COMPARISON: Previous chest x-rays most recent 10/16/2020 TECHNIQUE: Frontal view of the chest was obtained. FINDINGS: The cardiac silhouette is enlarged but stable. There is pulmonary venous redistribution. There is increased density and the bronchograms seen in the left lung base questionable for left lower lobe atelectasis/consolidation. The lungs are otherwise clear. No definite pleural effusion is seen. There is no pneumothorax. There are degenerative changes of the spine and right shoulder joint. XR/XR chest 1V IMPRESSION: Stable enlargement of cardiac silhouette and pulmonary venous redistribution. Increasing density at the left lung base and air bronchograms questionable for increasing left base atelectasis/consolidation.
[2020-10-27] MEDS: amLODIPine Besylate 5 MG TABLET PO (08:11)
[2020-10-27] MEDS: Docusate Sodium 100 MG CAPSULE PO ×2 (08:11→22:00)
[2020-10-27] MEDS: Losartan Potassium 25 MG TABLET PO (08:11)
[2020-10-27] MEDS: 0.9 % Sodium Chloride Flush 3 ML SYRINGE IVFLUSH ×2 (08:11→15:41)
[2020-10-27] MEDS: carvediloL 3.125 MG TABLET PO ×2 (08:11→21:59)
[2020-10-27] MEDS: Heparin Sodium,Porcine 5,000 UNIT/ML VIAL 5000 UNIT SUBCUT ×2 (08:12→21:59)
[2020-10-27] MEDS: predniSONE 10 MG TABLET PO (08:12)
[2020-10-27] MEDS: Furosemide 40 MG/4 ML VIAL IVPUSH ×2 (08:12→17:29)
[2020-10-27] MEDS: Nystatin Powder 15 GM BOTTLE 1 APPL TOPICAL ×2 (08:21→22:00)
[2020-10-27] MEDS: guaiFENesin LA 600 MG TAB.ER.12H PO ×2 (09:58→21:59)
[2020-10-27] MEDS: polyethylene glycoL 3350 17 GM POWD.PACK PO (09:58)
--- NOTE | 2020-10-27 10:00 | MHC.CM.PN ---
CM spoke with covering MD who states patient is not ready for discharge yet. CM spoke with patient and instructed discharge is on hold. CM spoke with dtr Joselyn by phone and informed patient's discharge is placed on hold. CM will continue to follow for discharge needs.
--- NOTE | 2020-10-27 11:46 | P.CONCA_ITS ---
History of Present Illness History of Present Illness Date of Service: 10/27/20 Requesting physician: Carmel Disla Consult reason: congestive heart failure Chief complaint: AMS & HYPOXIA S/P MISPLACED O2 NC TO FOREHEAD Narrative: Thank you for inviting us on consult on Macy for persistent hypoxemia of unclear etiology. She was admitted 13 days ago with progressive shortness of breath and subsequently respiratory failure which was both hypoxic and hypercapnic. She was then treated with BiPAP and diuresis in the ICU and subsequently transferred to medical floor. Since hospitalization she has had a negative balance of 15 L. her echocardiogram shows normal LV systolic function with moderate pulmonary hypertension without any significant valvular abnormality and grade 2 1-2 diastolic dysfunction. Her BNP yesterday at normali ze from mid 600 range. She has had no other heart failure symptoms such as progressive leg edema or orthopnea however she continues to require high amount of oxygen replacement therapy. Cardiology consult was sought for further management plan. There were no arrhythmias noted. She denies any chest pain. Review of Systems Constitutional: Constitutional: Denies chills, Reports fatigue, Denies fever(s) and Reports poor appetite Cardiovascular: Cardiovascular: Reports no additional cardiovascular complaints and Reports dyspnea Respiratory: Respiratory: Reports dyspnea Gastrointestinal: Gastrointestinal: Reports no additional gastrointestinal complaints Musculoskeletal: Musculoskeletal: Reports no additional musculoskeletal complaints Neurologic: Reports system reviewed and no additional complaints, except as documented Endocrine: Endocrine: Reports no additional endocrine complaints and Reports fatigue Hematologic/Lymphatic: Hematologic/Lymphatic: Reports no additional hematologic/lymphatic complaints [facility] Past Medical History Medical History Cor pulmonale, chronic Diastolic CHF with preserved left ventricular function, NYHA class 2 Emphysema lung Hyperkalemia Social History Social History Household Members: Unknown / Unable to assess Housing: Unknown / Unable to assess Alcohol intake: unknown Smoking Status: Unknown if ever smoked Substance Use Type: Unknown service: No Current occupational status: retired Meds Allergies Allergy/AdvReac Type Severity Reaction Status Date / Time vancomycin Allergy Unknown itch, Verified 10/27/20 09:15 rash, hives Home Medications Medication Instructions Recorded Confirmed Type amlodipine 5 mg tablet 5 mg PO DAILY 10/13/20 History atorvastatin 20 mg tablet 20 mg PO DAILY 10/13/20 History clonazepam 1 mg tablet 0 mg PO 10/13/20 History ipratropium bromide 17 2 puff INHALATION QID 10/13/20 History mcg/actuation HFA aerosol inhaler metoprolol tartrate 25 mg tablet 25 mg PO BID 10/13/20 History omeprazole 20 mg capsule,delayed 20 mg PO DAILY 10/13/20 History release tiotropium bromide 18 mcg capsule 1 cap INHALATION DAILY 10/13/20 History with inhalation device tramadol 50 mg tablet 50 mg PO BID PRN 10/13/20 History valsartan 160 mg tablet 160 mg PO DAILY 10/13/20 History albuterol sulfate 1 vial INHALATION Q4H 10/19/20 10/19/20 History amlodipine 1 tab PO DAILY 10/19/20 10/19/20 History atorvastatin 1 tab PO DAILY 10/19/20 10/19/20 History clonazepam 1 mg PO DAILY 10/19/20 10/19/20 History clonazepam 2 mg PO BEDTIME 10/19/20 10/19/20 History ipratropium bromide [Atrovent HFA] 2 puff INHALATION QID 10/19/20 10/19/20 History Physical Exam Vital Signs: Vital Signs: Last Vital Signs Temp 98.9 F 10/27/20 08:00 Pulse 92 10/27/20 08:00 Resp 24 H 10/27/20 08:00 BP 114/56 L 10/27/20 08:00 Pulse Ox 90 L 10/27/20 08:00 Body Mass Index 41.6 Const: General: comfortable, alert, awake and anxious Orientation/consciousness: patient oriented x3 HENMT: Head: Yes normocephalic and Yes atraumatic Neck: Neck: Yes trachea midline, Yes supple and Yes no JVD Chest: Chest palpation & inspection: normal inspection of the chest Resp: Effort & Inspection: normal respiratory effort Auscultation: no rales, no wheezes and diminished lung sounds Cardio: Jugular venous distension: no JVD Rate: regular rate Rhythm: regular rhythm Heart sounds: S1 normal heart sound present and S2 normal heart sound present GI: Auscultation: normal bowel sounds Skin: General skin exam: no rashes or lesions noted Neuro: General: patient oriented x3 and no focal motor deficits Extrem: General: Yes no clubbing, cyanosis or edema Psych: Appearance: grossly normal Results Labs and Meds Result diagrams: 10/27/20 05:24 10/27/20 05:24 Lab results: Laboratory Results - last 24 hr 10/27/20 10/27/20 10/27/20 05:05 05:24 05:24 WBC 12.9 H RBC 5.13 Hgb 14.9 Hct 48.0 H MCV 93.6 MCH 29.0 MCHC 31.0 RDW 14.0 Plt Count 103 L MPV 12.9 H Absolute Nucleated RBC 0.000 Nucleated RBC % (auto) 0.0 ABG pH 7.49 H ABG pCO2 48 H ABG pO2 62 L ABG HCO3 36 H ABG O2 Saturation 92.5 ABG Base Excess 10.1 Oxygen Given 8 L Sodium Potassium Chloride Carbon Dioxide Anion Gap BUN Creatinine Estim Creat Clear Calc Estimated GFR Random Glucose Calcium B-Natriuretic Peptide 32 10/27/20 05:24 WBC RBC Hgb Hct MCV MCH MCHC RDW Plt Count MPV Absolute Nucleated RBC Nucleated RBC % (auto) ABG pH ABG pCO2 ABG pO2 ABG HCO3 ABG O2 Saturation ABG Base Excess Oxygen Given Sodium 141 Potassium 4.1 Chloride 93 L Carbon Dioxide 36 H Anion Gap 16 BUN 30 H Creatinine 0.67 Estim Creat Clear Calc 88.4 Estimated GFR > 60 Random Glucose 88 Calcium 8.9 B-Natriuretic Peptide Imaging Radiologist's impression: Impressions Chest X-Ray 10/13/20 22:37 IMPRESSION: CHF and cardiomegaly. A left pleural effusion cannot be excluded. Chest CT 10/14/20 00:00 IMPRESSION: Bibasilar compressive atelectasis with bilateral posterior pleural thickening. Small pericardial effusion with moderate cardiomegaly. There are coronary artery calcifications and atherosclerotic calcification of the entire thoracic aorta and the arch. Diffuse thyroid enlargement consistent with goiter with calcified right thyroid nodule with substernal extension. There is mild compromise of the trachea from thyroid enlargement. Gallstones. Head CT 10/14/20 01:47 IMPRESSION: No acute intracranial pathology. Mild volume loss with small vessel ischemic changes. Chest CTA 10/15/20 00:00 IMPRESSION: Limited exam with no evidence of PE in the main, right and left pulmonary arteries. There is no aortic dissection or aneurysm suspected. There is bilateral lower lobe dependent atelectasis and minimal bilateral posterior pleural thickening and small right pleural effusion. Suspect small right pericardial effusion. Moderate thyromegaly with mild compression of trachea centrally. VTE: Negative. Results were discussed in person with Dr. Diamond at 11:20 AM. Chest X-Ray 10/16/20 00:00 IMPRESSION: Mild cardiomegaly with increased pulmonary vascularity slightly improved since 10/13/2020. Chest X-Ray 10/27/20 08:00 IMPRESSION: Stable enlargement of cardiac silhouette and pulmonary venous redistribution. Increasing density at the left lung base and air bronchograms questionable for increasing left base atelectasis/consolidation. Assessment and Plan (1) Hypoxemic respiratory failure, chronic: Status: Acute Persistent hypoxemic respiratory failure requiring higher amount of oxygen therapy. Clinically this does not appear to be secondary to heart failure. She is euvolemic. Her BNP is normalized. She has diuresed 15 L since admission. She is not appearing fluid overloaded clinically. Possible etiology includes pulmonary embolism, respiratory muscle weakness and reduced pulmonary capacity, atelectasis and/or interstitial lung disease. Further diagnostic testing with CTA and evaluation pulmonary parenchyma should be pursued. Also consider physical therapy as well as respiratory therapy with chest physiotherapy to improve atelectasis. May require short-term rehabilitation stay for improving her respiratory status. Continue current diuretic regimen, see below (2) Diastolic CHF with preserved left ventricular function, NYHA class 2: Status: Acute Diastolic heart failure is been well diuresed. Would switch her to p.o. Lasix therapy. Heart failure education should be provided. Continue optimization of pulmonary function. Consider sleep study, and may benefit from CPAP/BiPAP therapy. Blood pressure is optimized at current time. No further cardiac workup needed at this time. Will sign of the case. Thank you for allowing us to partake in her care
--- NOTE | 2020-10-27 14:20 | MHC.CM.PN ---
CM returned call to dtr Joselyn who is asking patient go to pulmonary STR and is asking CM for info. Instructed Joselyn our pulmonary STR's that we use are [facility], [facility], and [facility]. Joselyn was asking specific questions about STR. CM encouraged her to review facilities online and return call with questions. Joselyn verbalizes understanding.
--- NOTE | 2020-10-27 14:55 | MHC.CM.PN ---
Return call from dtcarlita Alves, 1st choice for STR is [facility]. Referral placed via allscripts. CM will continue to follow patient for discharge needs.
--- NOTE | 2020-10-27 16:51 | HO.PM.IMPN ---
Subjective Subjective Date of Service: 10/27/20 Interval History: The patient was seen and evaluated this morning Laying in bed, looks lethargic and tired Denies any fever, chills but reports dyspnea with minimal exertion and shortness of breath No reported other overnight events. Systemic review: No fever, chills or weakness No chest pain, palpitation Reporting shortness of breath and dyspnea , still requiring oxygen supplement No abdominal pain, nausea or vomiting No urinary symptoms No any rash or wounds Physical Exam Vital Signs: Vital Signs: Last Vital Signs Temp 97.7 F 10/27/20 16:00 Pulse 89 10/27/20 16:00 Resp 17 10/27/20 16:00 BP 120/65 10/27/20 16:00 Pulse Ox 94 10/27/20 16:00 Body Mass Index 41.6 Constitutional : Alert, oriented to self and place, not in distress Neck : Normal inspection, Supple Cardiovascular : RRR, S1 S2, no lower extremity edema Respiratory : Decreased bilateral air entry, basal crackles, wheezes or rhonchi Gastrointestinal: soft, lax, Normal bowel sounds, Non tender Skin : Warm/Dry, No rash Neurological : Alert & oriented x2, No focal deficit Objective Data Current Medications Generic Name Dose Route Start Last Admin Trade Name Freq PRN Reason Stop Dose Admin Acetylcysteine 400 mg 10/27/20 20:00 Acetylcysteine 10 % 400 Mg/4 Ml Vial INHALE RBID KALPESH Albuterol/Ipratropium 3 ml 10/26/20 20:00 10/27/20 15:53 Albuterol/Iprat 2.5/0.5mg 3 Ml Ampul.Neb INHALE 3 ml RQ4H KALPESH Administration Amlodipine Besylate 5 mg 10/27/20 09:00 10/27/20 08:11 Amlodipine Besylate 5 Mg Tablet PO 5 mg DAILY KALPESH Administration Protocol Atorvastatin Calcium 20 mg 10/27/20 21:00 Atorvastatin Calcium 20 Mg Tablet PO BEDTIME KALPESH Bisacodyl 10 mg 10/21/20 10:15 Bisacodyl 10 Mg Supp.Rect CO DAILY PRN Constipation Carvedilol 3.125 mg 10/17/20 09:00 10/27/20 08:11 Carvedilol 3.125 Mg Tablet PO 3.125 mg BID KALPESH Administration Protocol Clonazepam 1 mg 10/26/20 21:00 10/26/20 20:50 Clonazepam 1 Mg Tablet PO 1 mg BEDTIME KALPESH Administration Docusate Sodium 100 mg 10/20/20 21:00 10/27/20 08:11 Docusate Sodium 100 Mg Capsule PO 100 mg BID KALPESH Administration Fluticasone/Vilanterol 1 puff 10/19/20 08:00 10/27/20 07:59 Fluticasone/Vilanterol 100/25 Blst.W.Dev INHALE 1 puff RDAILY KALPESH Administration Furosemide 40 mg 10/22/20 18:00 10/27/20 08:12 Furosemide 40 Mg/4 Ml Vial IVPUSH 40 mg BID@0900,1800 KALPESH Administration Protocol Guaifenesin 600 mg 10/27/20 09:25 10/27/20 09:58 Guaifenesin La 600 Mg Tab.Er.12h PO 600 mg BID KALPESH Administration Heparin Sodium (Porcine) 5,000 unit 10/14/20 09:00 10/27/20 08:12 Heparin Sodium,Porcine 5,000 Unit/Ml Vial SUBCUT 5,000 unit Q12H KALPESH Administration Losartan Potassium 25 mg 10/17/20 09:00 10/27/20 08:11 Losartan Potassium 25 Mg Tablet PO 25 mg DAILY KALPESH Administration Protocol Nystatin 1 appl 10/15/20 10:15 10/27/20 08:21 Nystatin Powder 15 Gm Bottle TOPICAL 1 appl BID KALPESH Administration Protocol Polyethylene Glycol 17 gm 10/21/20 10:15 10/26/20 17:27 Polyethylene Glycol 3350 17 Gm Powd.Pack PO 17 gm DAILY PRN Administration constipation Polyethylene Glycol 17 gm 10/27/20 09:25 10/27/20 09:58 Polyethylene Glycol 3350 17 Gm Powd.Pack PO 17 gm DAILY KALPESH Administration Prednisone 10 mg 10/23/20 09:00 10/27/20 08:12 Prednisone 10 Mg Tablet PO 10 mg DAILY KALPESH Administration Sodium Chloride 3 ml 10/15/20 16:00 10/27/20 15:41 0.9 % Sodium Chloride Flush 3 Ml Syringe IVFLUSH 3 ml QSHIFT KALPESH Administration Labs CBC & Chem 7: 10/27/20 05:24 10/27/20 05:24 Microbiology Microbiology Results: Microbiology 10/13/20 23:50 Blood - Venous Blood Culture - Final No growth after 5 days. 10/13/20 23:50 Blood - Venous Blood Culture - Final No growth after 5 days. Assessment and Plan (1) Acute hypercapnic respiratory failure: Status: Acute (2) Acute exacerbation of CHF (congestive heart failure): Status: Acute (3) Acute hyperkalemia: Status: Acute (4) Altered mental status: Status: Acute (5) Diastolic CHF with preserved left ventricular function, NYHA class 2: Status: Acute (6) COPD (chronic obstructive pulmonary disease): Status: Acute Assessment and Plan: 75-year-old female presented with shortness of breath. Was admitted to the ICU for acute on chronic hypoxic and hypercapnic respiratory failure requiring BiPAP and acute on chronic diastolic CHF requiring diuresis. Patient was then transition to high-flow O2and downgraded to medical floor. Acute on chronic hypoxic and hypercapnic respiratory failure secondary acute on chronic diastolic CHF Still requiring 10-11 L of O2, Wean O2 as tolerated continue to wean o2 for goal sat 90-94%, (has o2 at home) Plan for noninvasive positive pressure ventilation at home continue lasix to 40mg iv bid Strict intake and output Cardiology input appreciated To get CTA of the chest to rule out any possible PE Atelectasis\pneumonia CXR consistent with atelectasis/infiltrate f WBCs increased to 13,000 Start broad-spectrum antibiotics of Zosyn Incentive spirometry, chest physical therapy, Mucomyst nebulizer Weight loss family wants to take patient home as opposed to rehab COPD exacerbation Continue prednisone, wean down Increase bronchodilators HTN losartan, coreg DVT PPX Heparin
[2020-10-27] MEDS: Piperacillin Sodium/Tazobactam 3.375 GM in 0.9 % Sodium Chloride 50 ML IV (17:29)
[2020-10-27] MEDS: Acetylcysteine 10 % 400 MG/4 ML VIAL INHALE (19:36)
[2020-10-27] MEDS: iohexoL 350 MG/ML 100 ML INFUS..BTL IV (21:18)
[2020-10-27] MEDS: Atorvastatin Calcium 20 MG TABLET PO (21:59)
[2020-10-27] MEDS: clonazePAM 1 MG TABLET PO (21:59)
--- NOTE | 2020-10-27 23:52 | PC.NURSE ---
chest CTA done tonight, results : right lung PE. Dr Kothari was notified , Lovenox BID ordered
[2020-10-28] VITALS (9 sets, daily range): BP systolic 103–166; BP diastolic 53–81; PULSE 76–90; RESP 16–22; TEMP 36.1–37.2; O2SAT 86–96
[2020-10-28 00:52] LABS: INTERNATIONAL NORM RATIO 1.1 (0.9-1.1); Prothrombin Time 13.4 SEC (10.8-13.0)
[2020-10-28 00:55] LABS: Partial Thromboplastin Time 29.5 SEC (24.1-38.0)
[2020-10-28] MEDS: 0.9 % Sodium Chloride Flush 3 ML SYRINGE IVFLUSH ×4 (00:59→23:56)
[2020-10-28] MEDS: Piperacillin Sodium/Tazobactam 3.375 GM in 0.9 % Sodium Chloride 50 ML IV ×2 (01:03→06:30)
[2020-10-28] MEDS: Enoxaparin Sodium 120 MG/0.8 ML SYRINGE 115 MG SUBCUT ×3 (01:08→23:55)
[2020-10-28 04:43] LABS: PLT CLUMP 1; Red Cell Distribution Width 14.3 % (11.0-16.0)
[2020-10-28 04:44] LABS: Hematocrit 47.5 % (37-47); Hemoglobin 14.8 g/dl (12.0-16.0); Mean Corpuscular HGB Conc 31.2 g/dl (31.0-35.0); Mean Corpuscular Hemoglobin 29.5 pg (27.0-33.0); Mean Corpuscular Volume 94.8 fL (80-98); Mean Platelet Volume 11.7 fL (9.4-12.3); Platelet Count 118 X10*3/uL (160-400); Red Blood Count 5.01 X10*6/uL (4.20-5.50)
[2020-10-28 05:17] LABS: Anion Gap 14 (12-20); Blood Urea Nitrogen 34 mg/dL (9-16); Calcium 9.2 mg/dL (8.4-10.2); Carbon Dioxide 40 mmol/L (22-29); Chloride 91 mmol/L (96-108); Creatinine Clr Calc Pharmacy 68.9; Estimated Glomerular Filt Rate > 60; Glucose Random 107 mg/dL (60-115); Potassium 3.8 mmol/l (3.3-5.1); Sodium 141 mmol/L (135-145)
[2020-10-28] MEDS: Acetylcysteine 10 % 400 MG/4 ML VIAL INHALE (07:12)
[2020-10-28] MEDS: Albuterol/Iprat 2.5/0.5MG 3 ML AMPUL.NEB INHALE ×3 (07:12→15:04)
[2020-10-28] MEDS: Fluticasone/Vilanterol 100/25 BLST.W.DEV 1 PUFF INHALE (07:28)
[2020-10-28] MEDS: guaiFENesin LA 600 MG TAB.ER.12H PO ×2 (08:28→20:51)
[2020-10-28] MEDS: carvediloL 3.125 MG TABLET PO ×2 (08:29→20:51)
[2020-10-28] MEDS: Furosemide 40 MG/4 ML VIAL IVPUSH (08:29)
[2020-10-28] MEDS: predniSONE 10 MG TABLET PO (08:29)
[2020-10-28] MEDS: Losartan Potassium 25 MG TABLET PO (08:29)
[2020-10-28] MEDS: Docusate Sodium 100 MG CAPSULE PO (08:29)
[2020-10-28] MEDS: polyethylene glycoL 3350 17 GM POWD.PACK PO (08:29)
[2020-10-28] MEDS: amLODIPine Besylate 5 MG TABLET PO (08:37)
[2020-10-28] MEDS: Nystatin Powder 15 GM BOTTLE 1 APPL TOPICAL ×2 (08:38→20:51)
[2020-10-28 09:41] LABS: Pt Ventilation O2% 6 L
[2020-10-28 09:45] LABS: ABG PCO2 55 mmHg (32-45); Base Excess ABG 11.2; HCO3 ABG 38 mmol/L (22-26); Oxygen Saturation ABG 95.5 %; PO2 ABG 79 mmHg (83-108); pH ABG 7.46 (7.35-7.45)
--- NOTE | 2020-10-28 11:54 | MHC.CM.PN ---
CM spoke with patient F2F and with 2 dtr's prisca and Ca by phone. Updated patient is accepted to [facility]. Dtr's state they spoke with covering MD and are aware patient now has a PE and is being treated with Lovenox injections. Discharge plan is [facility] once medically stable via BLS transport. KONSTANTIN will continue to follow for discharge needs.
[2020-10-28] MEDS: acetaZOLAMIDE 250 MG TABLET PO (13:06)
--- NOTE | 2020-10-28 14:15 | MHC.CLN ---
F/U 75/100% PO DIET RX: 1800DM-RECOMMEND RE-STARTING CHOPPED PER BUNDLE CUTTER REC AND 2GM NA R/T HX CHF 1300 CALORIES PER DAY WILL PROMOTE SLOW WT LOSS FOLLOWING
--- NOTE | 2020-10-28 14:45 | P.PNIM_ITS ---
Subjective Subjective Date of Service: 10/28/20 Interval History: The patient was seen and evaluated this morning Laying in bed, looks more comfortable today but mildly confused Denies any fever, chills but reports dyspnea with minimal exertion and shortness of breath No reported other overnight events. Systemic review: No fever, chills or weakness No chest pain, palpitation Reporting shortness of breath and dyspnea , still requiring oxygen supplement No abdominal pain, nausea or vomiting No urinary symptoms No any rash or wounds Physical Exam Vital Signs: Vital Signs: Last Vital Signs Temp 98.0 F 10/28/20 12:00 Pulse 90 10/28/20 12:00 Resp 16 10/28/20 12:00 BP 103/53 L 10/28/20 12:00 Pulse Ox 92 10/28/20 12:00 Body Mass Index 41.6 Constitutional : Alert, oriented to self and place, not in distress Neck : Normal inspection, Supple Cardiovascular : RRR, S1 S2, no lower extremity edema Respiratory : Decreased bilateral air entry, basal crackles, wheezes or rhonchi Gastrointestinal: soft, lax, Normal bowel sounds, Non tender Skin : Warm/Dry, No rash Neurological : Alert & oriented x2, No focal deficit Objective Data Current Medications Generic Name Dose Route Start Last Admin Trade Name Freq PRN Reason Stop Dose Admin Acetylcysteine 400 mg 10/27/20 20:00 10/28/20 07:12 Acetylcysteine 10 % 400 Mg/4 Ml Vial INHALE 400 mg RBID KALPESH Administration Albuterol/Ipratropium 3 ml 10/26/20 20:00 10/28/20 11:02 Albuterol/Iprat 2.5/0.5mg 3 Ml Ampul.Neb INHALE 3 ml RQ4H KALPESH Administration Amlodipine Besylate 5 mg 10/27/20 09:00 10/28/20 08:37 Amlodipine Besylate 5 Mg Tablet PO 5 mg DAILY KALPESH Administration Protocol Atorvastatin Calcium 20 mg 10/27/20 21:00 10/27/20 21:59 Atorvastatin Calcium 20 Mg Tablet PO 20 mg BEDTIME KALPESH Administration Bisacodyl 10 mg 10/21/20 10:15 Bisacodyl 10 Mg Supp.Rect [place] DAILY PRN Constipation Carvedilol 3.125 mg 10/17/20 09:00 10/28/20 08:29 Carvedilol 3.125 Mg Tablet PO 3.125 mg BID KALPESH Administration Protocol Clonazepam 1 mg 10/26/20 21:00 10/27/20 21:59 Clonazepam 1 Mg Tablet PO 1 mg BEDTIME KALPESH Administration Docusate Sodium 100 mg 10/20/20 21:00 10/28/20 08:29 Docusate Sodium 100 Mg Capsule PO 100 mg BID KALPESH Administration Enoxaparin Sodium 115 mg 10/28/20 01:00 10/28/20 13:09 Enoxaparin Sodium 120 Mg/0.8 Ml Syringe 1 mg/kg (115 mg) 115 mg SUBCUT Administration Q12H [facility] Fluticasone/Vilanterol 1 puff 10/19/20 08:00 10/28/20 07:28 Fluticasone/Vilanterol 100/25 Blst.W.Dev INHALE 1 puff RDAILY KALPESH Administration Furosemide 40 mg 10/28/20 18:00 Furosemide 40 Mg Tablet PO BID@0900,1800 [facility] Protocol Guaifenesin 600 mg 10/27/20 09:25 10/28/20 08:28 Guaifenesin La 600 Mg Tab.Er.12h PO 600 mg BID KALPESH Administration Losartan Potassium 25 mg 10/17/20 09:00 10/28/20 08:29 Losartan Potassium 25 Mg Tablet PO 25 mg DAILY KALPESH Administration Protocol Nystatin 1 appl 10/15/20 10:15 10/28/20 08:38 Nystatin Powder 15 Gm Bottle TOPICAL 1 appl BID KALPESH Administration Protocol Polyethylene Glycol 17 gm 10/21/20 10:15 10/26/20 17:27 Polyethylene Glycol 3350 17 Gm Powd.Pack PO 17 gm DAILY PRN Administration constipation Polyethylene Glycol 17 gm 10/27/20 09:25 10/28/20 08:29 Polyethylene Glycol 3350 17 Gm Powd.Pack PO 17 gm DAILY KALPESH Administration Prednisone 10 mg 10/23/20 09:00 10/28/20 08:29 Prednisone 10 Mg Tablet PO 10 mg DAILY KALPESH Administration Sodium Chloride 3 ml 10/15/20 16:00 10/28/20 08:29 0.9 % Sodium Chloride Flush 3 Ml Syringe IVFLUSH 3 ml QSHIFT [facility] Administration Labs CBC & Chem 7: 10/28/20 04:27 10/28/20 04:27 Microbiology Microbiology Results: Microbiology 10/13/20 23:50 Blood - Venous Blood Culture - Final No growth after 5 days. 10/13/20 23:50 Blood - Venous Blood Culture - Final No growth after 5 days. Assessment and Plan (1) Emphysema lung: (2) Acute hyperkalemia: Status: Acute (3) Altered mental status: Status: Acute (4) Cor pulmonale, acute: Status: Acute (5) Cor pulmonale, chronic: Assessment and Plan: 75-year-old female presented with shortness of breath. Was admitted to the ICU for acute on chronic hypoxic and hypercapnic respiratory failure requiring BiPAP and acute on chronic diastolic CHF requiring diuresis. Patient was then trans ition to high-flow O2and downgraded to medical floor. Acute PE CTA reported multiple defects Started on full-dose Lovenox Plan to change her to Eliquis for total of 6 months Acute on chronic hypoxic and hypercapnic respiratory failure secondary acute on chronic diastolic CHF Still requiring 10-11 L of O2, Wean O2 as tolerated continue to wean o2 for goal sat 90-94%, (has o2 at home) Plan for noninvasive positive pressure ventilation at home continue lasix to 40mg iv bid Strict intake and output Cardiology input appreciated Atelectasis CXR consistent with atelectasis/infiltrate f CT scan not showing any infiltrates, possible atelectasis Discontinue Zosyn Incentive spirometry, chest physical therapy, Mucomyst nebulizer Weight loss family wants to take patient home as opposed to rehab COPD exacerbation Continue prednisone, wean down Increase bronchodilators HTN losartan, coreg DVT PPX Lovenox
[2020-10-28] MEDS: Furosemide 40 MG TABLET PO (17:13)
[2020-10-28] MEDS: Atorvastatin Calcium 20 MG TABLET PO (20:51)
[2020-10-28] MEDS: clonazePAM 1 MG TABLET PO (20:51)
[2020-10-28 23:55] LABS: INTERNATIONAL NORM RATIO 1.2 (0.9-1.1); Prothrombin Time 13.9 SEC (10.8-13.0)
[2020-10-29] VITALS (13 sets, daily range): BP systolic 101–141; BP diastolic 56–67; PULSE 69–90; RESP 16–18; TEMP 36.4–36.9; O2SAT 91–93
[2020-10-29] MEDS: Albuterol/Iprat 2.5/0.5MG 3 ML AMPUL.NEB INHALE ×5 (00:28→20:55)
[2020-10-29 06:14] LABS: Hemoglobin 14.4 g/dl (12.0-16.0); Mean Corpuscular HGB Conc 31.3 g/dl (31.0-35.0); Mean Corpuscular Hemoglobin 29.6 pg (27.0-33.0); Mean Corpuscular Volume 94.5 fL (80-98); Mean Platelet Volume 12.3 fL (9.4-12.3); Platelet Count 121 X10*3/uL (160-400); Red Blood Count 4.87 X10*6/uL (4.20-5.50); Red Cell Distribution Width 14.3 % (11.0-16.0); White Blood Count 9.4 X10*3/uL (4.8-10.8)
[2020-10-29 06:39] LABS: Anion Gap 15 (12-20); Blood Urea Nitrogen 42 mg/dL (9-16); Calcium 9.1 mg/dL (8.4-10.2); Carbon Dioxide 38 mmol/L (22-29); Chloride 92 mmol/L (96-108); Creatinine Clr Calc Pharmacy 71.3; Estimated Glomerular Filt Rate > 60; Glucose Random 91 mg/dL (60-115); Potassium 3.6 mmol/l (3.3-5.1); Sodium 141 mmol/L (135-145)
[2020-10-29] MEDS: Acetylcysteine 10 % 400 MG/4 ML VIAL INHALE ×2 (07:54→20:55)
[2020-10-29] MEDS: Fluticasone/Vilanterol 100/25 BLST.W.DEV 1 PUFF INHALE (07:54)
[2020-10-29] MEDS: carvediloL 3.125 MG TABLET PO ×2 (09:05→21:53)
[2020-10-29] MEDS: Losartan Potassium 25 MG TABLET PO (09:05)
[2020-10-29] MEDS: predniSONE 10 MG TABLET PO (09:05)
[2020-10-29] MEDS: amLODIPine Besylate 5 MG TABLET PO (09:05)
[2020-10-29] MEDS: guaiFENesin LA 600 MG TAB.ER.12H PO ×2 (09:05→21:53)
[2020-10-29] MEDS: polyethylene glycoL 3350 17 GM POWD.PACK PO (09:06)
[2020-10-29] MEDS: 0.9 % Sodium Chloride Flush 3 ML SYRINGE IVFLUSH ×2 (09:06→17:37)
[2020-10-29] MEDS: Nystatin Powder 15 GM BOTTLE 1 APPL TOPICAL ×2 (09:15→21:56)
[2020-10-29 16:55] LABS: Glucose, Whole Blood 138 mg/dL (60-115)
--- NOTE | 2020-10-29 17:37 | P.PNIM_ITS ---
Subjective Subjective Date of Service: 10/29/20 Interval History: The patient was seen and evaluated this morning Laying in bed, feels comfortable, not in distress Still requiring 5 L of oxygen Denies any fever, chills or shortness of breath No reported other overnight events. Systemic review: No fever, chills or weakness No chest pain, palpitation No shortness of breath or coughing No abdominal pain, nausea or vomiting No urinary symptoms No any rash or wounds Physical Exam Vital Signs: Vital Signs: Last Vital Signs Temp 97.9 F 10/29/20 15:24 Pulse 81 10/29/20 15:24 Resp 18 10/29/20 15:24 BP 112/56 L 10/29/20 15:24 Pulse Ox 91 L 10/29/20 15:24 Body Mass Index 41.6 Constitutional : Alert, oriented, not in distress Neck : Normal inspection, Supple Cardiovascular : RRR, S1 S2, no lower extremity edema Respiratory : Chest moving bilaterally, on nasal cannula, not in distress Gastrointestinal: soft, lax, Normal bowel sounds, Non tender Skin : Warm/Dry, No rash Neurological : Alert & oriented x3, left-sided weakness chronic Objective Data Current Medications Generic Name Dose Route Start Last Admin Trade Name Freq PRN Reason Stop Dose Admin Acetylcysteine 400 mg 10/27/20 20:00 10/29/20 07:54 Acetylcysteine 10 % 400 Mg/4 Ml Vial INHALE 400 mg RBID KALPESH Administration Albuterol/Ipratropium 3 ml 10/26/20 20:00 10/29/20 15:04 Albuterol/Iprat 2.5/0.5mg 3 Ml Ampul.Neb INHALE 3 ml RQ4H KALPESH Administration Amlodipine Besylate 5 mg 10/27/20 09:00 10/29/20 09:05 Amlodipine Besylate 5 Mg Tablet PO 5 mg DAILY KALPESH Administration Protocol Apixaban 5 mg 10/29/20 21:00 Apixaban 5 Mg Tablet PO BID KALPESH Atorvastatin Calcium 20 mg 10/27/20 21:00 10/28/20 20:51 Atorvastatin Calcium 20 Mg Tablet PO 20 mg BEDTIME KALPESH Administration Bisacodyl 10 mg 10/21/20 10:15 Bisacodyl 10 Mg Supp.Rect [place] DAILY PRN Constipation Carvedilol 3.125 mg 10/17/20 09:00 10/29/20 09:05 Carvedilol 3.125 Mg Tablet PO 3.125 mg BID KALPESH Administration Protocol Clonazepam 1 mg 10/26/20 21:00 10/28/20 20:51 Clonazepam 1 Mg Tablet PO 1 mg BEDTIME KALPESH Administration Docusate Sodium 100 mg 10/20/20 21:00 10/29/20 09:21 Docusate Sodium 100 Mg Capsule PO Not Given BID KALPESH Fluticasone/Vilanterol 1 puff 10/19/20 08:00 10/29/20 07:54 Fluticasone/Vilanterol 100/25 Blst.W.Dev INHALE 1 puff RDAILY KALPESH Administration Furosemide 40 mg 10/30/20 09:00 Furosemide 40 Mg Tablet PO DAILY KALPESH Protocol Guaifenesin 600 mg 10/27/20 09:25 10/29/20 09:05 Guaifenesin La 600 Mg Tab.Er.12h PO 600 mg BID KALPESH Administration Losartan Potassium 25 mg 10/17/20 09:00 10/29/20 09:05 Losartan Potassium 25 Mg Tablet PO 25 mg DAILY KALPESH Administration Protocol Nystatin 1 appl 10/15/20 10:15 10/29/20 09:15 Nystatin Powder 15 Gm Bottle TOPICAL 1 appl BID KALPESH Administration Protocol Polyethylene Glycol 17 gm 10/21/20 10:15 10/26/20 17:27 Polyethylene Glycol 3350 17 Gm Powd.Pack PO 17 gm DAILY PRN Administration constipation Polyethylene Glycol 17 gm 10/27/20 09:25 10/29/20 09:06 Polyethylene Glycol 3350 17 Gm Powd.Pack PO 17 gm DAILY KALPESH Administration Prednisone 10 mg 10/23/20 09:00 10/29/20 09:05 Prednisone 10 Mg Tablet PO 10 mg DAILY KALPESH Administration Sodium Chloride 3 ml 10/15/20 16:00 10/29/20 09:06 0.9 % Sodium Chloride Flush 3 Ml Syringe IVFLUSH 3 ml QSHIFT KALPESH Administration Labs CBC & Chem 7: 10/29/20 05:21 10/29/20 05:20 Microbiology Microbiology Results: Microbiology 10/13/20 23:50 Blood - Venous Blood Culture - Final No growth after 5 days. 10/13/20 23:50 Blood - Venous Blood Culture - Final No growth after 5 days. Assessment and Plan (1) Emphysema lung: (2) Acute hyperkalemia: Status: Acute (3) Altered mental status: Status: Acute (4) Cor pulmonale, acute: Status: Acute (5) Cor pulmonale, chronic: Assessment and Plan: 75-year-old female presented with shortness of breath. Was admitted to the ICU for acute on chronic hypoxic and hypercapnic respiratory failure requiring BiPAP and acute on chronic diastolic CHF requiring diuresis. Patient was then tr ansition to high-flow O2and downgraded to medical floor. Acute PE CTA reported multiple defects DC full-dose Lovenox start Eliquis for total of 6 months Acute on chronic hypoxic and hypercapnic respiratory failure secondary acute on chronic diastolic CHF Still requiring 5-6 L of O2, Wean O2 as tolerated continue to wean o2 for goal sat 90-94%, (has o2 at home) Plan for noninvasive positive pressure ventilation at home Decrease Lasix to 40 mg daily Strict intake and output Cardiology input appreciated Atelectasis CXR consistent with atelectasis/infiltrate f CT scan not showing any infiltrates, possible atelectasis Discontinue Zosyn Incentive spirometry, chest physical therapy, Mucomyst nebulizer Weight loss family wants to take patient home as opposed to rehab Contraction alkalosis Received acetazolamide Monitor BMP COPD exacerbation Finished a course of prednisone Increase bronchodilators HTN losartan, coreg DVT PPX Eliquis
[2020-10-29 20:23] LABS: Glucose, Whole Blood 150 mg/dL (60-115)
[2020-10-29] MEDS: Apixaban 5 MG TABLET PO (21:52)
[2020-10-29] MEDS: Atorvastatin Calcium 20 MG TABLET PO (21:52)
[2020-10-29] MEDS: Docusate Sodium 100 MG CAPSULE PO (21:52)
[2020-10-29] MEDS: clonazePAM 1 MG TABLET PO (21:53)
[2020-10-30] VITALS (17 sets, daily range): BP systolic 100–144; BP diastolic 51–73; PULSE 69–84; RESP 18–22; TEMP 36.3–36.7; O2SAT 91–95; BMI 39.5
[2020-10-30] MEDS: 0.9 % Sodium Chloride Flush 3 ML SYRINGE IVFLUSH ×3 (00:15→15:53)
[2020-10-30] MEDS: Albuterol/Iprat 2.5/0.5MG 3 ML AMPUL.NEB INHALE ×7 (00:23→23:27)
[2020-10-30 06:44] LABS: Hematocrit 46.1 % (37-47); Hemoglobin 14.3 g/dl (12.0-16.0); Mean Corpuscular Hemoglobin 29.2 pg (27.0-33.0); Mean Corpuscular Volume 94.3 fL (80-98); Platelet Count 130 X10*3/uL (160-400); Red Blood Count 4.89 X10*6/uL (4.20-5.50); Red Cell Distribution Width 14.2 % (11.0-16.0); White Blood Count 7.9 X10*3/uL (4.8-10.8)
[2020-10-30 07:07] LABS: Anion Gap 13 (12-20); Blood Urea Nitrogen 42 mg/dL (9-16); Calcium 9.2 mg/dL (8.4-10.2); Carbon Dioxide 37 mmol/L (22-29); Chloride 94 mmol/L (96-108); Estimated Glomerular Filt Rate > 60; Glucose Random 87 mg/dL (60-115); Potassium 3.6 mmol/l (3.3-5.1); Sodium 140 mmol/L (135-145)
--- NOTE | 2020-10-30 07:22 | PC.NURSE ---
7P-7A SHIFT; PT WAS DTV AT 1900. AT 1999, PT UP TO BEDSIDE COMMODE, UNABLE TO VOID, REPORTS DOES NOT HAVE SENSATION OR URGE TO VOID. BLADDER SCANNED PATIENT FOR [address] HERNÁNDEZ NOTIFIED. PER MD, IF BLADDER SCAN OVER 300 MLS, REINSERT VARGAS. 2144, PATIENT UP TO BEDSIDE COMMODE AGAIN, ATTEMPTING TO VOID, UNSUCCESSFUL. BLADDER SCAN FOR [address] HERNÁNDEZ NOTIFIED. ORDER PLACED FOR VARGAS CATHETER. VARGAS CATHETER INSERTED, PATIENT TOLERATED WELL , VARGAS DRAINING YELLOW URINE.
[2020-10-30] MEDS: Acetylcysteine 10 % 400 MG/4 ML VIAL INHALE ×2 (07:31→19:43)
[2020-10-30] MEDS: Fluticasone/Vilanterol 100/25 BLST.W.DEV 1 PUFF INHALE (07:32)
[2020-10-30] MEDS: amLODIPine Besylate 5 MG TABLET PO (08:40)
[2020-10-30] MEDS: predniSONE 10 MG TABLET PO (08:40)
[2020-10-30] MEDS: carvediloL 3.125 MG TABLET PO ×2 (08:40→21:43)
[2020-10-30] MEDS: Losartan Potassium 25 MG TABLET PO (08:40)
[2020-10-30] MEDS: Apixaban 5 MG TABLET PO ×2 (08:40→21:43)
[2020-10-30] MEDS: guaiFENesin LA 600 MG TAB.ER.12H PO ×2 (08:41→21:44)
[2020-10-30] MEDS: Furosemide 40 MG TABLET PO (08:41)
[2020-10-30] MEDS: polyethylene glycoL 3350 17 GM POWD.PACK PO (08:42)
[2020-10-30] MEDS: Docusate Sodium 100 MG CAPSULE PO ×2 (08:42→21:43)
[2020-10-30] MEDS: Nystatin Powder 15 GM BOTTLE 1 APPL TOPICAL ×2 (08:42→21:45)
--- NOTE | 2020-10-30 13:12 | MHC.CM.PN ---
Patient may be stable enough to transfer to [facility] this weekend. Bipap is ordered by [facility] and will have to be delivered to [facility] on discharge. Patient is new to [facility] for PE. Patient will need BLS transport. CM will continue to follow patient for discharge needs.
--- NOTE | 2020-10-30 15:18 | HO.PM.IMPN ---
Subjective Subjective Date of Service: 10/30/20 Interval History: The patient was seen and evaluated this morning Laying in bed, feels comfortable, not in distress Still requiring 4-5 L of oxygen Denies any fever, chills or shortness of breath No reported other overnight events. Systemic review: No fever, chills or weakness No chest pain, palpitation No shortness of breath or coughing No abdominal pain, nausea or vomiting No urinary symptoms No any rash or wounds Physical Exam Vital Signs: Vital Signs: Last Vital Signs Temp 97.4 F 10/30/20 11:56 Pulse 84 10/30/20 13:30 Resp 22 H 10/30/20 11:56 BP 129/70 10/30/20 11:56 Pulse Ox 94 10/30/20 13:30 Body Mass Index 39.5 Constitutional : Alert, oriented, not in distress Neck : Normal inspection, Supple Cardiovascular : RRR, S1 S2, no lower extremity edema Respiratory : Chest moving bilaterally, on nasal cannula, not in distress Gastrointestinal: soft, lax, Normal bowel sounds, Non tender Skin : Warm/Dry, No rash Neurological : Alert & oriented x3, left-sided weakness chronic Objective Data Current Medications Generic Name Dose Route Start Last Admin Trade Name Freq PRN Reason Stop Dose Admin Acetylcysteine 400 mg 10/27/20 20:00 10/30/20 07:31 Acetylcysteine 10 % 400 Mg/4 Ml Vial INHALE 400 mg RBID KALPESH Administration Albuterol/Ipratropium 3 ml 10/26/20 20:00 10/30/20 12:10 Albuterol/Iprat 2.5/0.5mg 3 Ml Ampul.Neb INHALE 3 ml RQ4H KALPESH Administration Amlodipine Besylate 5 mg 10/27/20 09:00 10/30/20 08:40 Amlodipine Besylate 5 Mg Tablet PO 5 mg DAILY KALPESH Administration Protocol Apixaban 5 mg 10/29/20 21:00 10/30/20 08:40 Apixaban 5 Mg Tablet PO 5 mg BID KALPESH Administration Atorvastatin Calcium 20 mg 10/27/20 21:00 10/29/20 21:52 Atorvastatin Calcium 20 Mg Tablet PO 20 mg BEDTIME KALPESH Administration Bisacodyl 10 mg 10/21/20 10:15 Bisacodyl 10 Mg Supp.Rect [place] DAILY PRN Constipation Carvedilol 3.125 mg 10/17/20 09:00 10/30/20 08:40 Carvedilol 3.125 Mg Tablet PO 3.125 mg BID KALPESH Administration Protocol Clonazepam 1 mg 10/26/20 21:00 10/29/20 21:53 Clonazepam 1 Mg Tablet PO 1 mg BEDTIME KALPESH Administration Docusate Sodium 100 mg 10/20/20 21:00 10/30/20 08:42 Docusate Sodium 100 Mg Capsule PO 100 mg BID KALPESH Administration Fluticasone/Vilanterol 1 puff 10/19/20 08:00 10/30/20 07:32 Fluticasone/Vilanterol 100/25 Blst.W.Dev INHALE 1 puff RDAILY KALPESH Administration Furosemide 40 mg 10/30/20 09:00 10/30/20 08:41 Furosemide 40 Mg Tablet PO 40 mg DAILY KALPESH Administration Protocol Guaifenesin 600 mg 10/27/20 09:25 10/30/20 08:41 Guaifenesin La 600 Mg Tab.Er.12h PO 600 mg BID KALPESH Administration Losartan Potassium 25 mg 10/17/20 09:00 10/30/20 08:40 Losartan Potassium 25 Mg Tablet PO 25 mg DAILY KALPESH Administration Protocol Nystatin 1 appl 10/15/20 10:15 10/30/20 08:42 Nystatin Powder 15 Gm Bottle TOPICAL 1 appl BID KALPESH Administration Protocol Polyethylene Glycol 17 gm 10/21/20 10:15 10/26/20 17:27 Polyethylene Glycol 3350 17 Gm Powd.Pack PO 17 gm DAILY PRN Administration constipation Polyethylene Glycol 17 gm 10/27/20 09:25 10/30/20 08:42 Polyethylene Glycol 3350 17 Gm Powd.Pack PO 17 gm DAILY KALPESH Administration Prednisone 10 mg 10/23/20 09:00 10/30/20 08:40 Prednisone 10 Mg Tablet PO 10 mg DAILY KALPESH Administration Sodium Chloride 3 ml 10/15/20 16:00 10/30/20 08:36 0.9 % Sodium Chloride Flush 3 Ml Syringe IVFLUSH 3 ml QSHIFT [facility] Administration Labs CBC & Chem 7: 10/30/20 05:38 10/30/20 05:38 Microbiology Microbiology Results: Microbiology 10/13/20 23:50 Blood - Venous Blood Culture - Final No growth after 5 days. 10/13/20 23:50 Blood - Venous Blood Culture - Final No growth after 5 days. Assessment and Plan (1) Emphysema lung: (2) Acute hyperkalemia: Status: Acute (3) Altered mental status: Status: Acute (4) Cor pulmonale, acute: Status: Acute (5) Cor pulmonale, chronic: Assessment and Plan: 75-year-old female presented with shortness of breath. Was admitted to the ICU for acute on chronic hypoxic and hypercapnic respiratory failure requiring BiPAP and acute on chronic diastolic CHF requiring diuresis. Patient was then transition to high-flow O2and downgraded to medical floor. Acute PE CTA reported multiple defects DC full-dose Lovenox continue Eliquis for total of 6 months Acute on chronic hypoxic and hypercapnic respiratory failure secondary acute on chronic diastolic CHF Still requiring 5-6 L of O2, Wean O2 as tolerated continue to wean o2 for goal sat 90-94%, (has o2 at home) Plan for noninvasive positive pressure ventilation after discharge Decrease Lasix to 40 mg daily Strict intake and output Cardiology input appreciated Atelectasis CXR consistent with atelectasis/infiltrate f CT scan not showing any infiltrates, possible atelectasis Discontinue Zosyn Incentive spirometry, chest physical therapy, Mucomyst nebulizer Weight loss Plan to dc to rehab Contraction alkalosis Received acetazolamide Monitor BMP COPD exacerbation Finished a course of prednisone Increase bronchodilators HTN losartan, coreg DVT PPX Eliquis
[2020-10-30] MEDS: clonazePAM 1 MG TABLET PO (21:43)
[2020-10-30] MEDS: Atorvastatin Calcium 20 MG TABLET PO (21:43)
[2020-10-31] VITALS (12 sets, daily range): BP systolic 102–147; BP diastolic 55–73; PULSE 66–88; RESP 16–20; TEMP 36.5–37; O2SAT 88–95
[2020-10-31] MEDS: 0.9 % Sodium Chloride Flush 3 ML SYRINGE IVFLUSH ×4 (01:15→21:51)
[2020-10-31] MEDS: Acetylcysteine 10 % 400 MG/4 ML VIAL INHALE ×2 (07:53→19:27)
[2020-10-31] MEDS: Albuterol/Iprat 2.5/0.5MG 3 ML AMPUL.NEB INHALE ×5 (07:53→23:34)
[2020-10-31] MEDS: Fluticasone/Vilanterol 100/25 BLST.W.DEV 1 PUFF INHALE (07:56)
[2020-10-31] MEDS: polyethylene glycoL 3350 17 GM POWD.PACK PO (10:29)
[2020-10-31] MEDS: Docusate Sodium 100 MG CAPSULE PO ×2 (10:30→21:50)
[2020-10-31] MEDS: Furosemide 40 MG TABLET PO (10:30)
[2020-10-31] MEDS: predniSONE 10 MG TABLET PO (10:30)
[2020-10-31] MEDS: guaiFENesin LA 600 MG TAB.ER.12H PO ×2 (10:30→21:50)
[2020-10-31] MEDS: Apixaban 5 MG TABLET PO ×2 (10:31→21:50)
[2020-10-31] MEDS: Losartan Potassium 25 MG TABLET PO (10:31)
[2020-10-31] MEDS: carvediloL 3.125 MG TABLET PO ×2 (10:31→21:50)
[2020-10-31] MEDS: amLODIPine Besylate 5 MG TABLET PO (10:32)
[2020-10-31] MEDS: Nystatin Powder 15 GM BOTTLE 1 APPL TOPICAL ×2 (10:33→21:51)
--- NOTE | 2020-10-31 15:58 | HO.PM.IMPN ---
Subjective Subjective Date of Service: 10/31/20 Interval History: The patient was seen and evaluated this morning Laying in bed, feels comfortable, not in distress Still requiring 4-5 L of oxygen Denies any fever, chills or shortness of breath No reported other overnight events. Systemic review: No fever, chills or weakness No chest pain, palpitation No shortness of breath or coughing No abdominal pain, nausea or vomiting No urinary symptoms No any rash or wounds Physical Exam Vital Signs: Vital Signs: Last Vital Signs Temp 98.2 F 10/31/20 11:33 Pulse 66 10/31/20 11:33 Resp 20 10/31/20 11:33 BP 119/59 L 10/31/20 11:33 Pulse Ox 94 10/31/20 11:33 Body Mass Index 39.5 Constitutional : Alert, oriented, not in distress Neck : Normal inspection, Supple Cardiovascular : RRR, S1 S2, no lower extremity edema Respiratory : Chest moving bilaterally, on nasal cannula, not in distress Gastrointestinal: soft, lax, Normal bowel sounds, Non tender Skin : Warm/Dry, No rash Neurological : Alert & oriented x3, left-sided weakness chronic Objective Data Current Medications Generic Name Dose Route Start Last Admin Trade Name Freq PRN Reason Stop Dose Admin Acetylcysteine 400 mg 10/27/20 20:00 10/31/20 07:53 Acetylcysteine 10 % 400 Mg/4 Ml Vial INHALE 400 mg RBID KALPESH Administration Albuterol/Ipratropium 3 ml 10/26/20 20:00 10/31/20 15:30 Albuterol/Iprat 2.5/0.5mg 3 Ml Ampul.Neb INHALE 3 ml RQ4H KALPESH Administration Amlodipine Besylate 5 mg 10/27/20 09:00 10/31/20 10:32 Amlodipine Besylate 5 Mg Tablet PO 5 mg DAILY KALPESH Administration Protocol Apixaban 5 mg 10/29/20 21:00 10/31/20 10:31 Apixaban 5 Mg Tablet PO 5 mg BID KALPESH Administration Atorvastatin Calcium 20 mg 10/27/20 21:00 10/30/20 21:43 Atorvastatin Calcium 20 Mg Tablet PO 20 mg BEDTIME KALPESH Administration Bisacodyl 10 mg 10/21/20 10:15 Bisacodyl 10 Mg Supp.Rect [place] DAILY PRN Constipation Carvedilol 3.125 mg 10/17/20 09:00 10/31/20 10:31 Carvedilol 3.125 Mg Tablet PO 3.125 mg BID KALPESH Administration Protocol Clonazepam 1 mg 10/26/20 21:00 10/30/20 21:43 Clonazepam 1 Mg Tablet PO 1 mg BEDTIME KALPESH Administration Docusate Sodium 100 mg 10/20/20 21:00 10/31/20 10:30 Docusate Sodium 100 Mg Capsule PO 100 mg BID KALPESH Administration Fluticasone/Vilanterol 1 puff 10/19/20 08:00 10/31/20 07:56 Fluticasone/Vilanterol 100/25 Blst.W.Dev INHALE 1 puff RDAILY KALPESH Administration Furosemide 40 mg 10/30/20 09:00 10/31/20 10:30 Furosemide 40 Mg Tablet PO 40 mg DAILY [facility] Administration Protocol Guaifenesin 600 mg 10/27/20 09:25 10/31/20 10:30 Guaifenesin La 600 Mg Tab.Er.12h PO 600 mg BID KALPESH Administration Losartan Potassium 25 mg 10/17/20 09:00 10/31/20 10:31 Losartan Potassium 25 Mg Tablet PO 25 mg DAILY [facility] Administration Protocol Nystatin 1 appl 10/15/20 10:15 10/31/20 10:33 Nystatin Powder 15 Gm Bottle TOPICAL 1 appl BID [facility] Administration Protocol Polyethylene Glycol 17 gm 10/21/20 10:15 10/31/20 10:29 Polyethylene Glycol 3350 17 Gm Powd.Pack PO 17 gm DAILY PRN Administration constipation Polyethylene Glycol 17 gm 10/27/20 09:25 10/31/20 10:36 Polyethylene Glycol 3350 17 Gm Powd.Pack PO Not Given DAILY KALPESH Prednisone 10 mg 10/23/20 09:00 10/31/20 10:30 Prednisone 10 Mg Tablet PO 10 mg DAILY [facility] Administration Sodium Chloride 3 ml 10/15/20 16:00 10/31/20 15:56 0.9 % Sodium Chloride Flush 3 Ml Syringe IVFLUSH 3 ml QSHIFT [facility] Administration Labs CBC & Chem 7: 10/30/20 05:38 10/30/20 05:38 Microbiology Microbiology Results: Microbiology 10/13/20 23:50 Blood - Venous Blood Culture - Final No growth after 5 days. 10/13/20 23:50 Blood - Venous Blood Culture - Final No growth after 5 days. Assessment and Plan (1) Emphysema lung: (2) Acute hyperkalemia: Status: Acute (3) Altered mental status: Status: Acute (4) Cor pulmonale, acute: Status: Acute (5) Cor pulmonale, chronic: Assessment and Plan: 75-year-old female presented with shortness of breath. Was admitted to the ICU for acute on chronic hypoxic and hypercapnic respiratory failure requiring BiPAP and acute on chronic diastolic CHF requiring diuresis. Patient was then transition to high-flow O2and downgraded to medical floor. Acute PE CTA reported multiple defects DC full-dose Lovenox continue Eliquis for total of 6 months until 04/29/2021 Acute on chronic hypoxic and hypercapnic respiratory failure secondary acute on chronic diastolic CHF Still requiring 4-6 L of O2, Wean O2 as tolerated continue to wean o2 for goal sat 90-94%, (has o2 at home) Plan for noninvasive positive pressure ventilation after discharge Decrease Lasix to 40 mg daily Strict intake and output Cardiology input appreciated Atelectasis CXR consistent with atelectasis/infiltrate f CT scan not showing any infiltrates, possible atelectasis Discontinue Zosyn Incentive spirometry, chest physical therapy, Mucomyst nebulizer Weight loss Plan to dc to rehab Contraction alkalosis Received acetazolamide Monitor BMP COPD exacerbation Finished a course of prednisone Increase bronchodilators HTN losartan, coreg DVT PPX Eliquis
[2020-10-31] MEDS: Atorvastatin Calcium 20 MG TABLET PO (21:50)
[2020-11-01] VITALS (11 sets, daily range): BP systolic 133–155; BP diastolic 63–78; PULSE 67–97; RESP 18–19; TEMP 36.4–36.9; O2SAT 91–97
[2020-11-01 07:27] LABS: Anion Gap 14 (12-20); Blood Urea Nitrogen 26 mg/dL (9-16); Calcium 9.3 mg/dL (8.4-10.2); Carbon Dioxide 37 mmol/L (22-29); Chloride 93 mmol/L (96-108); Creatinine Clr Calc Pharmacy 76.7; Estimated Glomerular Filt Rate > 60; Glucose Random 93 mg/dL (60-115); Potassium 4.5 mmol/l (3.3-5.1); Sodium 139 mmol/L (135-145)
[2020-11-01] MEDS: Acetylcysteine 10 % 400 MG/4 ML VIAL INHALE (08:33)
[2020-11-01] MEDS: Albuterol/Iprat 2.5/0.5MG 3 ML AMPUL.NEB INHALE ×3 (08:33→15:58)
[2020-11-01] MEDS: Fluticasone/Vilanterol 100/25 BLST.W.DEV 1 PUFF INHALE (08:40)
[2020-11-01] MEDS: amLODIPine Besylate 5 MG TABLET PO (09:03)
[2020-11-01] MEDS: polyethylene glycoL 3350 17 GM POWD.PACK PO (09:03)
[2020-11-01] MEDS: predniSONE 10 MG TABLET PO (09:04)
[2020-11-01] MEDS: carvediloL 3.125 MG TABLET PO ×2 (09:04→20:12)
[2020-11-01] MEDS: Losartan Potassium 25 MG TABLET PO (09:04)
[2020-11-01] MEDS: Furosemide 40 MG TABLET PO (09:05)
[2020-11-01] MEDS: Docusate Sodium 100 MG CAPSULE PO ×2 (09:05→20:12)
[2020-11-01] MEDS: guaiFENesin LA 600 MG TAB.ER.12H PO ×2 (09:06→20:12)
[2020-11-01] MEDS: 0.9 % Sodium Chloride Flush 3 ML SYRINGE IVFLUSH ×3 (09:06→21:22)
[2020-11-01] MEDS: Apixaban 5 MG TABLET PO ×2 (09:06→20:12)
[2020-11-01] MEDS: Nystatin Powder 15 GM BOTTLE 1 APPL TOPICAL ×2 (12:12→20:12)
[2020-11-01] MEDS: Tamsulosin HCL 0.4 MG CAPSULE 0.8 MG PO (12:50)
--- NOTE | 2020-11-01 13:19 | HO.PM.IMPN ---
Subjective Subjective Date of Service: 11/01/20 Interval History: The patient was seen and evaluated this morning Laying in bed, feels comfortable, not in distress Still requiring 4-5 L of oxygen Denies any fever, chills or shortness of breath No reported other overnight events. Systemic review: No fever, chills or weakness No chest pain, palpitation No shortness of breath or coughing No abdominal pain, nausea or vomiting No urinary symptoms No any rash or wounds Physical Exam Vital Signs: Vital Signs: Last Vital Signs Temp 97.8 F 11/01/20 11:02 Pulse 97 11/01/20 12:23 Resp 18 11/01/20 11:02 BP 134/63 11/01/20 11:02 Pulse Ox 94 11/01/20 11:02 Body Mass Index 39.5 Const: Other: Constitutional : Alert, oriented, not in distress Neck : Normal inspection, Supple Cardiovascular : RRR, S1 S2, no lower extremity edema Respiratory : Good bilateral air entry, no wheezes or crackles, on nasal cannula, not in distress Gastrointestinal: soft, lax, Normal bowel sounds, Non tender Skin : Warm/Dry, No rash Neurological : Alert & oriented x3, left-sided weakness chronic Objective Data Current Medications Generic Name Dose Route Start Last Admin Trade Name Freq PRN Reason Stop Dose Admin Acetylcysteine 400 mg 10/27/20 20:00 11/01/20 08:33 Acetylcysteine 10 % 400 Mg/4 Ml Vial INHALE 400 mg RBID KALPESH Administration Albuterol/Ipratropium 3 ml 10/26/20 20:00 11/01/20 12:21 Albuterol/Iprat 2.5/0.5mg 3 Ml Ampul.Neb INHALE 3 ml RQ4H KALPESH Administration Amlodipine Besylate 5 mg 10/27/20 09:00 11/01/20 09:03 Amlodipine Besylate 5 Mg Tablet PO 5 mg DAILY KALPESH Administration Protocol Apixaban 5 mg 10/29/20 21:00 11/01/20 09:06 Apixaban 5 Mg Tablet PO 5 mg BID KALPESH Administration Atorvastatin Calcium 20 mg 10/27/20 21:00 10/31/20 21:50 Atorvastatin Calcium 20 Mg Tablet PO 20 mg BEDTIME KALPESH Administration Bisacodyl 10 mg 10/21/20 10:15 Bisacodyl 10 Mg Supp.Rect [place] DAILY PRN Constipation Carvedilol 3.125 mg 10/17/20 09:00 11/01/20 09:04 Carvedilol 3.125 Mg Tablet PO 3.125 mg BID [facility] Administration Protocol Docusate Sodium 100 mg 10/20/20 21:00 11/01/20 09:05 Docusate Sodium 100 Mg Capsule PO 100 mg BID KALPES[facility] Administration Fluticasone/Vilanterol 1 puff 10/19/20 08:00 11/01/20 08:40 Fluticasone/Vilanterol 100/25 Blst.W.Dev INHALE 1 puff RDAILY KALPES[facility] Administration Furosemide 40 mg 10/30/20 09:00 11/01/20 09:05 Furosemide 40 Mg Tablet PO 40 mg DAILY [facility] Administration Protocol Guaifenesin 600 mg 10/27/20 09:25 11/01/20 09:06 Guaifenesin La 600 Mg Tab.Er.12h PO 600 mg BID KALPESH Administration Losartan Potassium 25 mg 10/17/20 09:00 11/01/20 09:04 Losartan Potassium 25 Mg Tablet PO 25 mg DAILY [facility] Administration Protocol Nystatin 1 appl 10/15/20 10:15 11/01/20 12:12 Nystatin Powder 15 Gm Bottle TOPICAL 1 appl BID [facility] Administration Protocol Polyethylene Glycol 17 gm 10/21/20 10:15 10/31/20 10:29 Polyethylene Glycol 3350 17 Gm Powd.Pack PO 17 gm DAILY PRN Administration constipation Polyethylene Glycol 17 gm 10/27/20 09:25 11/01/20 09:03 Polyethylene Glycol 3350 17 Gm Powd.Pack PO 17 gm DAILY KALPES[facility] Administration Prednisone 10 mg 10/23/20 09:00 11/01/20 09:04 Prednisone 10 Mg Tablet PO 10 mg DAILY [facility] Administration Sodium Chloride 3 ml 10/15/20 16:00 11/01/20 09:06 0.9 % Sodium Chloride Flush 3 Ml Syringe IVFLUSH 3 ml QSHIFT [facility] Administration Tamsulosin HCl 0.4 mg 11/02/20 17:30 Tamsulosin Hcl 0.4 Mg Capsule PO DAILY@1730 [facility] Labs CBC & Chem 7: 10/30/20 05:38 11/01/20 05:47 Microbiology Microbiology Results: Microbiology 10/13/20 23:50 Blood - Venous Blood Culture - Final No growth after 5 days. 10/13/20 23:50 Blood - Venous Blood Culture - Final No growth after 5 days. Assessment and Plan (1) Emphysema lung: (2) Acute hyperkalemia: Status: Acute (3) Altered mental status: Status: Acute (4) Cor pulmonale, acute: Status: Acute (5) Cor pulmonale, chronic: Assessment and Plan: 75-year-old female presented with shortness of breath. Was admitted to the ICU for acute on chronic hypoxic and hypercapnic respiratory failure requiring BiPAP and acute on chronic diastolic CHF requiring diuresis. Patient was then transition to high-flow O2and downgraded to medical floor. Acute PE CTA reported multiple defects DC full-dose Lovenox continue Eliquis for total of 6 months until 04/29/2021 Acute on chronic hypoxic and hypercapnic respiratory failure secondary acute on chronic diastolic CHF, PE Still requiring 4-5 L of O2, Wean O2 as tolerated continue to wean o2 for goal sat 90-94%, (has o2 at home) Plan for noninvasive positive pressure ventilation after discharge Decrease Lasix to 40 mg daily Strict intake and output Cardiology input appreciated Atelectasis CXR consistent with atelectasis/infiltrate CT scan not showing any infiltrates, possible atelectasis Discontinue Zosyn Incentive spirometry, chest physical therapy, Mucomyst nebulizer Weight loss Plan to dc to rehab Contraction alkalosis Received acetazolamide Monitor BMP COPD exacerbation Finished a course of prednisone Increase bronchodilators HTN losartan, coreg DVT PPX Eliquis
[2020-11-01] MEDS: Atorvastatin Calcium 20 MG TABLET PO (20:12)
[2020-11-02] VITALS (17 sets, daily range): BP systolic 100–145; BP diastolic 51–85; PULSE 84–102; RESP 18–20; TEMP 36.4–37; O2SAT 89–97
[2020-11-02] MEDS: Albuterol/Iprat 2.5/0.5MG 3 ML AMPUL.NEB INHALE ×5 (00:04→20:38)
--- NOTE | 2020-11-02 07:00 | MHC.PIE ---
P: Urinary retention - teague removed Monday, 11/01. Bladder scanned at midnight 11/02 after multiple small voids for 370ml. No discomfort felt per patient. I: Dr Pratt made aware of urinary retention & bladder scan. Ordered to straight cath Q6H for Residual >150ml. Straight cath patient @ 0250 for almost 400ml. E: Patient tolerated - Shift report given about plan for bladder scan and straight cath order.
--- NOTE | 2020-11-02 07:16 | PC.NURSE ---
Addendum entered by Mateo Kumar RN 11/02/20 09:19: @ approx 0400 daughter Ca called and updated about patient condition regarding oxygen & urinary retention. Original Note: Assumed care at 0000 - Patient refusing c-pap overnight. Attempted to wean oxygen from 3 liters. Put down to 2 liters nasal cannula & patient 02sat went from mid/high 90's to 89%. Titrated back up to 3 liters. See vital signs. Continuous O2sat monitoring in place. Mental status - Oriented, sleeping, but arousable. No resp distress or issues.
[2020-11-02] MEDS: Acetylcysteine 10 % 400 MG/4 ML VIAL INHALE ×2 (07:20→20:39)
[2020-11-02] MEDS: Fluticasone/Vilanterol 100/25 BLST.W.DEV 1 PUFF INHALE (07:39)
[2020-11-02] MEDS: 0.9 % Sodium Chloride Flush 3 ML SYRINGE IVFLUSH ×3 (08:42→20:41)
[2020-11-02] MEDS: Apixaban 5 MG TABLET PO ×2 (08:43→20:28)
[2020-11-02] MEDS: Docusate Sodium 100 MG CAPSULE PO ×2 (08:43→20:28)
[2020-11-02] MEDS: predniSONE 10 MG TABLET PO (08:43)
[2020-11-02] MEDS: guaiFENesin LA 600 MG TAB.ER.12H PO ×2 (08:44→20:28)
[2020-11-02] MEDS: polyethylene glycoL 3350 17 GM POWD.PACK PO (08:47)
[2020-11-02] MEDS: carvediloL 3.125 MG TABLET PO ×2 (08:59→20:28)
[2020-11-02] MEDS: Furosemide 40 MG TABLET PO (09:00)
[2020-11-02] MEDS: Nystatin Powder 15 GM BOTTLE 1 APPL TOPICAL ×2 (09:01→20:40)
--- NOTE | 2020-11-02 13:56 | P.PNIM_ITS ---
Subjective Subjective Date of Service: 11/02/20 Interval History: The patient was seen and evaluated this morning Laying in bed, feels comfortable, not in distress Still requiring 3 L of oxygen Denies any fever, chills or shortness of breath No reported other overnight events. Systemic review: No fever, chills or weakness No chest pain, palpitation No shortness of breath or coughing No abdominal pain, nausea or vomiting No urinary symptoms No any rash or wounds Physical Exam Vital Signs: Vital Signs: Last Vital Signs Temp 98.0 F 11/02/20 11:30 Pulse 84 11/02/20 13:11 Resp 18 11/02/20 11:30 BP 114/60 11/02/20 13:11 Pulse Ox 94 11/02/20 13:11 Body Mass Index 39.5 Const: Other: Constitutional : Alert, oriented, not in distress Neck : Normal inspection, Supple Cardiovascular : RRR, S1 S2, no lower extremity edema Respiratory : Good bilateral air entry, no wheezes or crackles, on nasal cannula, not in distress Gastrointestinal: soft, lax, Normal bowel sounds, Non tender Skin : Warm/Dry, No rash Neurological : Alert & oriented x3, left-sided weakness chronic Objective Data Current Medications Generic Name Dose Route Start Last Admin Trade Name Freq PRN Reason Stop Dose Admin Acetylcysteine 400 mg 10/27/20 20:00 11/02/20 07:20 Acetylcysteine 10 % 400 Mg/4 Ml Vial INHALE 400 mg RBID KALPESH Administration Albuterol/Ipratropium 3 ml 10/26/20 20:00 11/02/20 11:08 Albuterol/Iprat 2.5/0.5mg 3 Ml Ampul.Neb INHALE 3 ml RQ4H KALPES[facility] Administration Amlodipine Besylate 5 mg 10/27/20 09:00 11/02/20 09:01 Amlodipine Besylate 5 Mg Tablet PO Not Given DAILY KALPES[facility] Protocol Apixaban 5 mg 10/29/20 21:00 11/02/20 08:43 Apixaban 5 Mg Tablet PO 5 mg BID K[facility]PES[facility] Administration Atorvastatin Calcium 20 mg 10/27/20 21:00 11/01/20 20:12 Atorvastatin Calcium 20 Mg Tablet PO 20 mg BEDTIME KALPES[facility] Administration Bisacodyl 10 mg 10/21/20 10:15 Bisacodyl 10 Mg Supp.Rect [place] DAILY PRN Constipation Carvedilol 3.125 mg 10/17/20 09:00 11/02/20 08:59 Carvedilol 3.125 Mg Tablet PO 3.125 mg BID [facility] Administration Protocol Docusate Sodium 100 mg 10/20/20 21:00 11/02/20 08:43 Docusate Sodium 100 Mg Capsule PO 100 mg BID K[facility]PES[facility] Administration Fluticasone/Vilanterol 1 puff 10/19/20 08:00 11/02/20 07:39 Fluticasone/Vilanterol 100/25 Blst.W.Dev INHALE 1 puff RDAILY [facility] Administration Furosemide 40 mg 10/30/20 09:00 11/02/20 09:00 Furosemide 40 Mg Tablet PO 40 mg DAILY [facility] Administration Protocol Guaifenesin 600 mg 10/27/20 09:25 11/02/20 08:44 Guaifenesin La 600 Mg Tab.Er.12h PO 600 mg BID KALPESH Administration Losartan Potassium 25 mg 10/17/20 09:00 11/02/20 09:00 Losartan Potassium 25 Mg Tablet PO Not Given DAILY [facility] Protocol Nystatin 1 appl 10/15/20 10:15 11/02/20 09:01 Nystatin Powder 15 Gm Bottle TOPICAL 1 appl BID [facility] Administration Protocol Polyethylene Glycol 17 gm 10/21/20 10:15 10/31/20 10:29 Polyethylene Glycol 3350 17 Gm Powd.Pack PO 17 gm DAILY PRN Administration constipation Polyethylene Glycol 17 gm 10/27/20 09:25 11/02/20 08:47 Polyethylene Glycol 3350 17 Gm Powd.Pack PO 17 gm DAILY KALPESH Administration Prednisone 10 mg 10/23/20 09:00 11/02/20 08:43 Prednisone 10 Mg Tablet PO 10 mg DAILY [facility] Administration Sodium Chloride 3 ml 10/15/20 16:00 11/02/20 08:42 0.9 % Sodium Chloride Flush 3 Ml Syringe IVFLUSH 3 ml QSHIFT [facility] Administration Tamsulosin HCl 0.4 mg 11/02/20 17:30 Tamsulosin Hcl 0.4 Mg Capsule PO DAILY@1730 [facility] Labs CBC & Chem 7: 10/30/20 05:38 11/01/20 05:47 Microbiology Microbiology Results: Microbiology 10/13/20 23:50 Blood - Venous Blood Culture - Final No growth after 5 days. 10/13/20 23:50 Blood - Venous Blood Culture - Final No growth after 5 days. Assessment and Plan (1) Emphysema lung: (2) Acute hyperkalemia: Status: Acute (3) Altered mental status: Status: Acute (4) Cor pulmonale, acute: Status: Acute (5) Cor pulmonale, chronic: Assessment and Plan: 75-year-old female presented with shortness of breath. Was admitted to the ICU for acute on chronic hypoxic and hypercapnic respiratory failure requiring BiPAP and acute on chronic diastolic CHF requiring diuresis. Patient was then transition to high-flow O2and downgraded to medical floor. Acute PE CTA reported multiple defects DC full-dose Lovenox continue Eliquis for total of 6 months until 04/29/2021 Acute on chronic hypoxic and hypercapnic respiratory failure secondary acute on chronic diastolic CHF, PE Still requiring 3 L of O2, Wean O2 as tolerated Plan for noninvasive positive pressure ventilation after discharge, unable to be delivered today to facility which will postpone her discharge until tomorrow Decrease Lasix to 40 mg daily Strict intake and output Cardiology input appreciated Atelectasis CXR consistent with atelectasis CT scan not showing any infiltrates, possible atelectasis Not on antibiotics, no signs of infection Incentive spirometry, chest physical therapy, Mucomyst nebulizer Weight loss Plan to dc to rehab Contraction alkalosis Received acetazolamide Monitor BMP COPD exacerbation Finished a course of prednisone Increase bronchodilators HTN losartan, coreg DVT PPX Eliquis
[2020-11-02 14:00] LABS: COVID-19 Test Negative (Negative)
--- NOTE | 2020-11-02 15:07 | PM.PNPUL ---
Subjective Subjective Date of Service: 11/02/20 Interval history: The patient was seen on exam. She has underlying COPD and presented to the hospital with acute on chronic hypercarbic respiratory failure. The patient responded well to noninvasive ventilation. At this point the patient is going to be discharge to rehabilitation due to the fact that she has significant decondition. Once she is discharged from rehab she will be started on a noninvasive ventilator at home. In the meantime while she is waiting to be set up on her noninvasive ventilator she is able to bridge with BiPAP therapy. Objective Data Labs CBC & Chem 7: 10/30/20 05:38 11/01/20 05:47 Labs: Laboratory Results - last 24 hr 11/02/20 13:30 COVID-19 (DONTE) Negative COVID-19 Clin Com See Note Microbiology Microbiology Results: Microbiology 10/13/20 23:50 Blood - Venous Blood Culture - Final No growth after 5 days. 10/13/20 23:50 Blood - Venous Blood Culture - Final No growth after 5 days. Review of Systems Constitutional: Reports fatigue, Denies night sweats and Reports weakness Denies change in voice, Denies lip swelling, Denies mouth pain, Reports nasal congestion, Reports nasal discharge and Denies tongue swelling Cardiovascular: Denies chest pain and Reports dyspnea on exertion Respiratory: Denies chest congestion, Reports cough and Reports dyspnea on exertion Gastrointestinal: Denies abdominal pain Musculoskeletal: Denies no additional musculoskeletal complaints Reports system reviewed and no additional complaints, except as documented, Denies focal weakness and Reports weakness Psychiatric: Denies no additional psychiatric complaints Endocrine: Reports fatigue Hematologic/Lymphatic: Denies easy bleeding and Denies lymphadenopathy Allergic/Immunologic: Denies lip swelling and Denies tongue swelling Physical Exam Vital Signs: Vital Signs: Last Vital Signs Temp 98.0 F 11/02/20 11:30 Pulse 84 11/02/20 13:11 Resp 18 11/02/20 11:30 BP 114/60 11/02/20 13:11 Pulse Ox 94 11/02/20 13:11 Body Mass Index 39.5 Const: General: alert HENMT: General nose exam: Abnormal external nose present and Nasal discharge present Neck: Neck: Yes normal visual inspection, Yes full ROM and Yes no lymphadenopathy Chest: Chest palpation & inspection: normal inspection of the chest Resp: Auscultation: diminished lung sounds Cardio: Rate: regular rate Rhythm: regular rhythm Heart sounds: S1 normal heart sound present and S2 normal heart sound present GI: Palpation (GI): Soft to palpation and nontender Auscultation: normal bowel sounds : General: Yes no CVA tenderness Back/Spine/Pelvis: Back: no CVA tenderness Skin: General skin exam: rashes and/or lesions noted Assessment and Plan Assessment and plan (1) COPD (chronic obstructive pulmonary disease): Problem details: very deconditioned Status: Acute Assessment and Plan: Continue respiratory therapy Pulmonary rehab inpt (2) Acute and chronic respiratory failure with hypercapnia: Problem details: Significant Hypercarbia due to her advanced COPD. Needs to start NIV. While at rehab she will brdge with BIPAP Status: Acute Assessment and Plan: BIPAP 12/8 with 3 L nasal cannula while at rehab Astral NIV once at home through [facility] Time Spent With Patient Time: Total time spent is greater than 50% in coordination of care (as documented) at patient's floor/unit and/or counseling patient: Time with patient: 15 - 24 minutes
--- NOTE | 2020-11-02 15:19 | MHC.CM.PN ---
[facility] not able to accept patient today r/t need to change rooms. Patient and 2 dtr's Joselyn and Ca all updated. CM will continue to follow for discharge needs.
[2020-11-02] MEDS: Tamsulosin HCL 0.4 MG CAPSULE PO (18:38)
[2020-11-02] MEDS: Atorvastatin Calcium 20 MG TABLET PO (20:28)
[2020-11-03] VITALS (9 sets, daily range): BP systolic 125–152; BP diastolic 62–73; PULSE 80–100; RESP 18–20; TEMP 36.6–36.9; O2SAT 92–96
[2020-11-03 06:43] LABS: Anion Gap 13 (12-20); Blood Urea Nitrogen 25 mg/dL (9-16); Calcium 9.1 mg/dL (8.4-10.2); Carbon Dioxide 36 mmol/L (22-29); Chloride 95 mmol/L (96-108); Creatinine Clr Calc Pharmacy 77.7; Estimated Glomerular Filt Rate > 60; Glucose Random 105 mg/dL (60-115); Potassium 4.8 mmol/l (3.3-5.1); Sodium 139 mmol/L (135-145)
[2020-11-03] MEDS: Docusate Sodium 100 MG CAPSULE PO (08:44)
[2020-11-03] MEDS: 0.9 % Sodium Chloride Flush 3 ML SYRINGE IVFLUSH ×2 (08:44→16:16)
[2020-11-03] MEDS: carvediloL 3.125 MG TABLET PO (08:44)
[2020-11-03] MEDS: amLODIPine Besylate 5 MG TABLET PO (08:44)
[2020-11-03] MEDS: Furosemide 40 MG TABLET PO (08:44)
[2020-11-03] MEDS: Losartan Potassium 25 MG TABLET PO (08:45)
[2020-11-03] MEDS: Apixaban 5 MG TABLET PO (08:45)
[2020-11-03] MEDS: polyethylene glycoL 3350 17 GM POWD.PACK PO (08:46)
[2020-11-03] MEDS: guaiFENesin LA 600 MG TAB.ER.12H PO (08:58)
[2020-11-03] MEDS: Nystatin Powder 15 GM BOTTLE 1 APPL TOPICAL (09:05)
[2020-11-03] MEDS: predniSONE 10 MG TABLET PO (09:05)
[2020-11-03] MEDS: Acetylcysteine 10 % 400 MG/4 ML VIAL INHALE (10:54)
[2020-11-03] MEDS: Albuterol/Iprat 2.5/0.5MG 3 ML AMPUL.NEB INHALE ×3 (10:56→15:24)
--- NOTE | 2020-11-03 15:23 | MHC.CM.PN ---
Patient will be discharged today to [facility] via [facility] transport at 6pm. Patient, dtr's Zoe and nurse is aware.
--- NOTE | 2020-11-03 15:39 | PM.DS ---
DS: Providers Provider Date of Service: 11/03/20 Date of admission: 10/14/20 03:38 Primary care physician: Clint Tong MD Consults: 10/18/20 10:51 Consult to Pulmonology Routine Consulting Provider: William Mccurdy Reason for consultation: hypercarbic resp failure Has provider been notified: No 10/22/20 13:25 Consult to Pulmonology Routine Consulting Provider: Jose Alfredo Navas Reason for consultation: hypoxic and hypercapneic resp failure 10/26/20 12:01 Consult to Cardiology Routine Consulting Provider: Cory Mckeon Reason for consultation: For your kind eval for CHF exacerbation, increase O2 requirement. 11/02/20 14:40 Consult to Pulmonology Routine Consulting Provider: William Mccurdy Reason for consultation: New BiPAP, SNF requirement Pulm note about BiPAP settings. DS: Diagnosis Discharge Diagnosis (1) Emphysema lung: DS: Medications Discharge Medications Home Medications: Home Medications Medication Instructions Recorded Confirmed atorvastatin 20 mg tablet 20 mg PO DAILY 10/13/20 omeprazole 20 mg capsule,delayed 20 mg PO DAILY 10/13/20 release tiotropium bromide 18 mcg capsule 1 cap INHALATION DAILY 10/13/20 with inhalation device amlodipine 1 tab PO DAILY 10/19/20 10/19/20 Previous Rx's Medication Instructions Recorded apixaban [Eliquis] 5 mg PO BID #60 tab 11/03/20 bisacodyl [Gentle Laxative 10 mg MA DAILY PRN #30 ea 11/03/20 (bisacodyl)] carvedilol 3.125 mg PO BID #30 tab 11/03/20 fluticasone furoate-vilanterol 1 puff INHALATION RDAILY #1 ea 11/03/20 [Breo Ellipta] furosemide 40 mg PO DAILY #30 tab 11/03/20 guaifenesin [Mucinex] 600 mg PO BID #20 tab 11/03/20 ipratropium-albuterol 3 ml INHALATION QID 30 Days #270 ml 11/03/20 losartan 25 mg PO DAILY #30 tab 11/03/20 nystatin 1 appl TOPICAL BID #1 g 11/03/20 polyethylene glycol 3350 17 g PO DAILY #30 ea 11/03/20 DS: Summary Hospital Course Hospital Course: History of presenting illness Shortness of breath 75-year-old female who was BIBA after her daughter found her with an altered mental status, cyanotic and short of breath. Upon EMS arrival, patient's O2 sat was in the 70s so they applied a non-rebreather @ 15 L and patient's O2 saturation tita to 99%. According to the ED doctor, when the patient arrived here she was confused and somnolent and unable to provide a history. The patient was placed on BiPap in the ED. The ED doctor did speak with patient's daughter and apparently the patient has had worsening short of breath over the past month. The daughter explained the pt went to the sleeping bag filler's office this morning and her oxygen saturation was found to be in the 70s so they put her on oxygen, she O2 sat improved to the 90's so they sent her home on 4 L. apparently, according to the daughter when the patient went to bed, the nasal cannula did not stay in her nose properly, unknown period of time, and that is when her daughter found her cyanotic, altered and short of breath. The patient's daughter did say she has a history of CHF but has not had an exacerbation in at least 3 years. Labs were notable for an ABG 7.21/94/72/37/94 base excess of 4.5 on 7L, potassium was elevated at 5.8, carbon dioxide 38, gap of 11, troponin was 85.5 (likely demand ischemia), 2nd troponin is pending and BNP is 498. EKG showed a sinus rhythm at 93BPM with PACs and incomplete RBBB. UA negative for infection. Coronavirus negative. CXR showed CHF, cardiomegaly and a left pleural effusion could not be excluded. Past medical history Cor pulmonale Emphysema Hospital course 75-year-old female patient with past medical history of hypoventilation/obesity/obstructive sleep apnea not on home BiPAP presented to [facility] with altered mental status and was diagnosed to have acute on chronic hypercarbic and hypoxic respiratory failure, patient admitted to ICU and treated with BiPAP subsequently placed on high-flow oxygen and transferred to [facility]. Acute on chronic hypercarbic and hypoxic respiratory failure Secondary to acute on chronic diastolic congestive heart failure, pulmonary embolism, patient treated with nebulizers, Mucinex, IV Lasix currently euvolemic, on 3 L of oxygen that can be gradually weaned. Plan is for noninvasive positive pressure ventilation after discharge, patient is being discharged to rehab facility due to generalized deconditioning, strongly recommend to use incentive spirometry, out of bed to chair, ambulation and weight loss continue home inhalers, continue Eliquis Acute encephalopathy due to hypercarbic respiratory failure resolved patient was on Klonopin and Ultram at home since admission patient has not received these medications, with no episodes of anxiety. Tobacco use disorder patient stop smoking 1 month ago. Morbid obesity weight reduction has strongly recommended likely contributing to obesity hypoventilation syndrome. Time Spent with Patient Time attestation: Total time spent providing and/or coordinating discharge services: Discharge coordination time: Greater than 30 minutes Physical Exam Vital Signs: Vital Signs: Last Vital Signs Temp 98.5 F 11/03/20 11:17 Pulse 98 11/03/20 15:25 Resp 20 11/03/20 11:17 BP 137/62 11/03/20 13:52 Pulse Ox 96 11/03/20 13:52 Body Mass Index 39.5 Constitutional : Alert, oriented, no acute distress Neck : Normal inspection, Supple Cardiovascular : RRR, S1 S2 Respiratory : Good bilateral air entry, no wheezes or crackles, on nasal cannula, no respiratory distress Gastrointestinal: soft, Normal bowel sounds, Non tender Skin : Warm/Dry, No rash extremities no edema Neurological : Alert & oriented x3, left-sided weakness chronic DS: Data Data Completed and Pending Labs on day of discharge: Laboratory Tests 10/13/20 10/13/20 10/13/20 23:48 23:49 23:49 WBC RBC Hgb Hct MCV MCH MCHC RDW Plt Count MPV Immature Gran % (Auto) Neut % (Auto) Lymph % (Auto) [place] % (Auto) Eos % (Auto) Baso % (Auto) Lymph # (Auto) [place] # (Auto) Eos # (Auto) Baso # (Auto) Abs Immat Gran (auto) Absolute Neuts (auto) Absolute Nucleated RBC Nucleated RBC % (auto) Smear Tech's Comments PT INR APTT Hold Blue Top ABG pH ABG pCO2 ABG pO2 ABG HCO3 ABG O2 Saturation ABG Base Excess VBG pH VBG pCO2 VBG pO2 VBG HCO3 VBG O2 Saturation VBG Base Excess Oxygen Given Sodium 142 Potassium 5.8 H Chloride 99 Carbon Dioxide 39 H Anion Gap 10 L BUN 18 H Creatinine 0.85 Estim Creat Clear Calc 71.1 Estimated GFR > 60 POC Glucose Random Glucose 108 Fasting Glucose Lactic Acid 0.6 Calcium 9.6 Phosphorus Magnesium Total Bilirubin Direct Bilirubin AST ALT Alkaline Phosphatase Ammonia Troponin I High Sens 85.5 H B-Natriuretic Peptide 498 H Total Protein Albumin Vitamin B12 Folate Procalcitonin TSH Urine Color Urine Appearance Urine pH Ur Specific [place] Urine Protein Urine Glucose (UA) Urine Ketones Urine Blood Urine Nitrite Ur Leukocyte Esterase Urine RBC Urine WBC Ur Squamous Epith Cells Urine Bacteria Hyaline Casts Coronavirus (PCR) COVID-19 (DONTE) COVID-19 Clin Com Influenza Type A (PCR) Influenza Type B (PCR) RSV RNA Qual (PCR) 10/13/20 10/13/20 10/13/20 23:49 23:50 23:50 WBC 8.1 RBC 5.16 Hgb 15.3 Hct 52.8 H MCV 102.3 H MCH 29.7 MCHC 29.0 L RDW 14.4 Plt Count Not Reportable MPV Not Reportable Immature Gran % (Auto) 0.4 Neut % (Auto) 70.2 Lymph % (Auto) 17.6 L [place] % (Auto) 10.9 Eos % (Auto) 0.7 Baso % (Auto) 0.2 Lymph # (Auto) 1.4 [place] # (Auto) 0.9 Eos # (Auto) 0.1 Baso # (Auto) 0.0 Abs Immat Gran (auto) 0.03 Absolute Neuts (auto) 5.7 Absolute Nucleated RBC 0.000 Nucleated RBC % (auto) 0.0 Smear Tech's Comments VERIFIED PT INR APTT Hold Blue Top SEE NOTE ABG pH ABG pCO2 ABG pO2 ABG HCO3 ABG O2 Saturation ABG Base Excess VBG pH VBG pCO2 VBG pO2 VBG HCO3 VBG O2 Saturation VBG Base Excess Oxygen Given Sodium 142 Potassium 5.8 H Chloride 99 Carbon Dioxide 38 H Anion Gap 11 L BUN 18 H Creatinine 0.85 Estim Creat Clear Calc 71.1 Estimated GFR > 60 POC Glucose Random Glucose 108 Fasting Glucose Lactic Acid Calcium 9.6 Phosphorus Magnesium Total Bilirubin 0.4 Direct Bilirubin 0.2 AST 21 ALT 20 Alkaline Phosphatase 80 Ammonia Troponin I High Sens B-Natriuretic Peptide Total Protein 7.4 Albumin 4.2 Vitamin B12 Folate Procalcitonin TSH Urine Color Urine Appearance Urine pH Ur Specific [place] Urine Protein Urine Glucose (UA) Urine Ketones Urine Blood Urine Nitrite Ur Leukocyte Esterase Urine RBC Urine WBC Ur Squamous Epith Cells Urine Bacteria Hyaline Casts Coronavirus (PCR) COVID-19 (DONTE) COVID-19 Clin Com Influenza Type A (PCR) Influenza Type B (PCR) RSV RNA Qual (PCR) 10/14/20 10/14/20 10/14/20 00:30 02:03 02:08 WBC RBC Hgb Hct MCV MCH MCHC RDW Plt Count MPV Immature Gran % (Auto) Neut % (Auto) Lymph % (Auto) [place] % (Auto) Eos % (Auto) Baso % (Auto) Lymph # (Auto) [place] # (Auto) Eos # (Auto) Baso # (Auto) Abs Immat Gran (auto) Absolute Neuts (auto) Absolute Nucleated RBC Nucleated RBC % (auto) Smear Tech's Comments PT INR APTT Hold Blue Top ABG pH 7.21 L ABG pCO2 94 H* ABG pO2 72 L ABG HCO3 37 H ABG O2 Saturation 94.0 ABG Base Excess 4.5 VBG pH VBG pCO2 VBG pO2 VBG HCO3 VBG O2 Saturation VBG Base Excess Oxygen Given 7 L Sodium Potassium Chloride Carbon Dioxide Anion Gap BUN Creatinine Estim Creat Clear Calc Estimated GFR POC Glucose Random Glucose Fasting Glucose Lactic Acid Calcium Phosphorus Magnesium Total Bilirubin Direct Bilirubin AST ALT Alkaline Phosphatase Ammonia Troponin I High Sens Cancelled B-Natriuretic Peptide Total Protein Albumin Vitamin B12 Folate Procalcitonin TSH Urine Color Urine Appearance Urine pH Ur Specific [place] Urine Protein Urine Glucose (UA) Urine Ketones Urine Blood Urine Nitrite Ur Leukocyte Esterase Urine RBC Urine WBC Ur Squamous Epith Cells Urine Bacteria Hyaline Casts Coronavirus (PCR) NEGATIVE COVID-19 (DONTE) COVID-19 Clin Com Influenza Type A (PCR) NEGATIVE Influenza Type B (PCR) NEGATIVE RSV RNA Qual (PCR) NEGATIVE 10/14/20 10/14/20 10/14/20 03:04 03:05 05:45 WBC 12.2 H RBC 4.77 Hgb 14.0 Hct 49.3 H MCV 103.4 H MCH 29.4 MCHC 28.4 L RDW 14.6 Plt Count 154 L MPV 11.2 Immature Gran % (Auto) 0.7 H Neut % (Auto) 82.3 H Lymph % (Auto) 7.7 L [place] % (Auto) 8.9 Eos % (Auto) 0.2 Baso % (Auto) 0.2 Lymph # (Auto) 0.9 L [place] # (Auto) 1.1 Eos # (Auto) 0.0 Baso # (Auto) 0.0 Abs Immat Gran (auto) 0.08 H Absolute Neuts (auto) 10.0 H Absolute Nucleated RBC 0.040 H Nucleated RBC % (auto) 0.3 H Smear Tech's Comments PT INR APTT Hold Blue Top ABG pH ABG pCO2 ABG pO2 ABG HCO3 ABG O2 Saturation ABG Base Excess VBG pH VBG pCO2 VBG pO2 VBG HCO3 VBG O2 Saturation VBG Base Excess Oxygen Given Sodium Potassium Chloride Carbon Dioxide Anion Gap BUN Creatinine Estim Creat Clear Calc Estimated GFR POC Glucose Random Glucose Fasting Glucose Lactic Acid Calcium Phosphorus Magnesium Total Bilirubin Direct Bilirubin AST ALT Alkaline Phosphatase Ammonia Troponin I High Sens 53.5 H B-Natriuretic Peptide Total Protein Albumin Vitamin B12 Folate Procalcitonin TSH Urine Color YELLOW Urine Appearance CLEAR Urine pH 5.5 Ur Specific [place] 1.020 Urine Protein NEG Urine Glucose (UA) NEG Urine Ketones NEG Urine Blood 2+ H Urine Nitrite NEG Ur Leukocyte Esterase NEG Urine RBC 15-29 H Urine WBC 0 Ur Squamous Epith Cells TRACE Urine Bacteria NONE Hyaline Casts 1-4 Coronavirus (PCR) COVID-19 (DONTE) COVID-19 Clin Com Influenza Type A (PCR) Influenza Type B (PCR) RSV RNA Qual (PCR) 10/14/20 10/14/20 10/14/20 05:45 05:45 07:10 WBC RBC Hgb Hct MCV MCH MCHC RDW Plt Count MPV Immature Gran % (Auto) Neut % (Auto) Lymph % (Auto) [place] % (Auto) Eos % (Auto) Baso % (Auto) Lymph # (Auto) [place] # (Auto) Eos # (Auto) Baso # (Auto) Abs Immat Gran (auto) Absolute Neuts (auto) Absolute Nucleated RBC Nucleated RBC % (auto) Smear Tech's Comments PT INR APTT Hold Blue Top ABG pH ABG pCO2 ABG pO2 ABG HCO3 ABG O2 Saturation ABG Base Excess VBG pH 7.27 L VBG pCO2 79 VBG pO2 51 VBG HCO3 36 VBG O2 Saturation 89.7 VBG Base Excess 5.5 Oxygen Given Sodium 143 Potassium 5.6 H Chloride 99 Carbon Dioxide 36 H Anion Gap 14 BUN 19 H Creatinine 0.84 Estim Creat Clear Calc 72.0 Estimated GFR > 60 POC Glucose Random Glucose 137 H Fasting Glucose Lactic Acid Calcium 9.3 Phosphorus 6.5 H Magnesium 2.1 Total Bilirubin Direct Bilirubin AST ALT Alkaline Phosphatase Ammonia Troponin I High Sens B-Natriuretic Peptide 559 H Total Protein Albumin Vitamin B12 Folate Procalcitonin TSH Urine Color Urine Appearance Urine pH Ur Specific [place] Urine Protein Urine Glucose (UA) Urine Ketones Urine Blood Urine Nitrite Ur Leukocyte Esterase Urine RBC Urine WBC Ur Squamous Epith Cells Urine Bacteria Hyaline Casts Coronavirus (PCR) COVID-19 (DONTE) COVID-19 Clin Com Influenza Type A (PCR) Influenza Type B (PCR) RSV RNA Qual (PCR) 10/14/20 10/14/20 10/14/20 12:06 14:00 14:01 WBC RBC Hgb Hct MCV MCH MCHC RDW Plt Count MPV Immature Gran % (Auto) Neut % (Auto) Lymph % (Auto) [place] % (Auto) Eos % (Auto) Baso % (Auto) Lymph # (Auto) [place] # (Auto) Eos # (Auto) Baso # (Auto) Abs Immat Gran (auto) Absolute Neuts (auto) Absolute Nucleated RBC Nucleated RBC % (auto) Smear Tech's Comments PT INR APTT Hold Blue Top ABG pH ABG pCO2 ABG pO2 ABG HCO3 ABG O2 Saturation ABG Base Excess VBG pH 7.24 L VBG pCO2 93 VBG pO2 65 VBG HCO3 38 VBG O2 Saturation 92.1 VBG Base Excess 6.8 Oxygen Given Sodium Potassium Chloride Carbon Dioxide Anion Gap BUN Creatinine Estim Creat Clear Calc Estimated GFR POC Glucose Random Glucose Fasting Glucose Lactic Acid Calcium Phosphorus Magnesium Total Bilirubin Direct Bilirubin AST ALT Alkaline Phosphatase Ammonia 62 H Troponin I High Sens 62.0 H B-Natriuretic Peptide 363 H Total Protein Albumin Vitamin B12 Folate Procalcitonin TSH Urine Color Urine Appearance Urine pH Ur Specific [place] Urine Protein Urine Glucose (UA) Urine Ketones Urine Blood Urine Nitrite Ur Leukocyte Esterase Urine RBC Urine WBC Ur Squamous Epith Cells Urine Bacteria Hyaline Casts Coronavirus (PCR) COVID-19 (DONTE) COVID-19 Clin Com Influenza Type A (PCR) Influenza Type B (PCR) RSV RNA Qual (PCR) 10/14/20 10/14/20 10/14/20 14:01 14:01 16:05 WBC RBC Hgb Hct MCV MCH MCHC RDW Plt Count MPV Immature Gran % (Auto) Neut % (Auto) Lymph % (Auto) [place] % (Auto) Eos % (Auto) Baso % (Auto) Lymph # (Auto) [place] # (Auto) Eos # (Auto) Baso # (Auto) Abs Immat Gran (auto) Absolute Neuts (auto) Absolute Nucleated RBC Nucleated RBC % (auto) Smear Tech's Comments PT INR APTT Hold Blue Top ABG pH ABG pCO2 ABG pO2 ABG HCO3 ABG O2 Saturation ABG Base Excess VBG pH 7.24 L VBG pCO2 79 VBG pO2 83 VBG HCO3 33 VBG O2 Saturation 95.7 VBG Base Excess 3.2 Oxygen Given Sodium Potassium Chloride Carbon Dioxide Anion Gap BUN Creatinine Estim Creat Clear Calc Estimated GFR POC Glucose Random Glucose Fasting Glucose Lactic Acid Calcium Phosphorus Magnesium Total Bilirubin Direct Bilirubin AST ALT Alkaline Phosphatase Ammonia Troponin I High Sens B-Natriuretic Peptide Total Protein Albumin Vitamin B12 1131 H Folate > 20.0 Procalcitonin TSH 0.44 Urine Color Urine Appearance Urine pH Ur Specific [place] Urine Protein Urine Glucose (UA) Urine Ketones Urine Blood Urine Nitrite Ur Leukocyte Esterase Urine RBC Urine WBC Ur Squamous Epith Cells Urine Bacteria Hyaline Casts Coronavirus (PCR) COVID-19 (DONTE) COVID-19 Clin Com Influenza Type A (PCR) Influenza Type B (PCR) RSV RNA Qual (PCR) 10/14/20 10/14/20 10/14/20 20:39 20:40 20:40 WBC RBC Hgb Hct MCV MCH MCHC RDW Plt Count MPV Immature Gran % (Auto) Neut % (Auto) Lymph % (Auto) [place] % (Auto) Eos % (Auto) Baso % (Auto) Lymph # (Auto) [place] # (Auto) Eos # (Auto) Baso # (Auto) Abs Immat Gran (auto) Absolute Neuts (auto) Absolute Nucleated RBC Nucleated RBC % (auto) Smear Tech's Comments PT INR APTT Hold Blue Top ABG pH ABG pCO2 ABG pO2 ABG HCO3 ABG O2 Saturation ABG Base Excess VBG pH VBG pCO2 VBG pO2 VBG HCO3 VBG O2 Saturation VBG Base Excess Oxygen Given Sodium 143 Potassium 5.4 H Chloride 99 Carbon Dioxide 39 H Anion Gap 10 L BUN 19 H Creatinine 0.73 Estim Creat Clear Calc 84.8 Estimated GFR > 60 POC Glucose Random Glucose 102 Fasting Glucose Lactic Acid Calcium 9.1 Phosphorus Magnesium Total Bilirubin Direct Bilirubin AST ALT Alkaline Phosphatase Ammonia 49 Troponin I High Sens 58.1 H B-Natriuretic Peptide Total Protein Albumin Vitamin B12 Folate Procalcitonin TSH Urine Color Urine Appearance Urine pH Ur Specific [place] Urine Protein Urine Glucose (UA) Urine Ketones Urine Blood Urine Nitrite Ur Leukocyte Esterase Urine RBC Urine WBC Ur Squamous Epith Cells Urine Bacteria Hyaline Casts Coronavirus (PCR) COVID-19 (DONTE) COVID-19 Clin Com Influenza Type A (PCR) Influenza Type B (PCR) RSV RNA Qual (PCR) 10/14/20 10/15/20 10/15/20 20:40 05:03 05:03 WBC 7.6 RBC 4.56 Hgb 13.5 Hct 46.3 MCV 101.5 H MCH 29.6 MCHC 29.2 L RDW 14.2 Plt Count 142 L MPV 11.1 Immature Gran % (Auto) 0.5 H Neut % (Auto) 84.1 H Lymph % (Auto) 9.1 L [place] % (Auto) 6.2 Eos % (Auto) 0.0 Baso % (Auto) 0.1 Lymph # (Auto) 0.7 L [place] # (Auto) 0.5 Eos # (Auto) 0.0 Baso # (Auto) 0.0 Abs Immat Gran (auto) 0.04 H Absolute Neuts (auto) 6.4 Absolute Nucleated RBC 0.000 Nucleated RBC % (auto) 0.0 Smear Tech's Comments VERIFIED PT INR APTT Hold Blue Top ABG pH ABG pCO2 ABG pO2 ABG HCO3 ABG O2 Saturation ABG Base Excess VBG pH 7.32 VBG pCO2 68 VBG pO2 67 VBG HCO3 34 VBG O2 Saturation 93.7 VBG Base Excess 5.5 Oxygen Given Sodium 143 Potassium 5.3 H Chloride 100 Carbon Dioxide 37 H Anion Gap 11 L BUN 21 H Creatinine 0.68 Estim Creat Clear Calc 91.1 Estimated GFR > 60 POC Glucose Random Glucose 102 Fasting Glucose Lactic Acid Calcium 8.9 Phosphorus 3.7 Magnesium 2.1 Total Bilirubin Direct Bilirubin AST ALT Alkaline Phosphatase Ammonia Troponin I High Sens B-Natriuretic Peptide Total Protein Albumin Vitamin B12 Folate Procalcitonin TSH Urine Color Urine Appearance Urine pH Ur Specific [place] Urine Protein Urine Glucose (UA) Urine Ketones Urine Blood Urine Nitrite Ur Leukocyte Esterase Urine RBC Urine WBC Ur Squamous Epith Cells Urine Bacteria Hyaline Casts Coronavirus (PCR) COVID-19 (DONTE) COVID-19 Clin Com Influenza Type A (PCR) Influenza Type B (PCR) RSV RNA Qual (PCR) 10/15/20 10/15/20 10/15/20 05:03 05:03 05:03 WBC RBC Hgb Hct MCV MCH MCHC RDW Plt Count MPV Immature Gran % (Auto) Neut % (Auto) Lymph % (Auto) [place] % (Auto) Eos % (Auto) Baso % (Auto) Lymph # (Auto) [place] # (Auto) Eos # (Auto) Baso # (Auto) Abs Immat Gran (auto) Absolute Neuts (auto) Absolute Nucleated RBC Nucleated RBC % (auto) Smear Tech's Comments PT INR APTT Hold Blue Top ABG pH ABG pCO2 ABG pO2 ABG HCO3 ABG O2 Saturation ABG Base Excess VBG pH 7.32 VBG pCO2 72 VBG pO2 44 VBG HCO3 37 VBG O2 Saturation 85.0 VBG Base Excess 7.6 Oxygen Given Sodium Potassium Chloride Carbon Dioxide Anion Gap BUN Creatinine Estim Creat Clear Calc Estimated GFR POC Glucose Random Glucose Fasting Glucose Lactic Acid Calcium Phosphorus Magnesium Total Bilirubin Direct Bilirubin AST ALT Alkaline Phosphatase Ammonia Troponin I High Sens 53.1 H B-Natriuretic Peptide 275 H Total Protein Albumin Vitamin B12 Folate Procalcitonin TSH Urine Color Urine Appearance Urine pH Ur Specific [place] Urine Protein Urine Glucose (UA) Urine Ketones Urine Blood Urine Nitrite Ur Leukocyte Esterase Urine RBC Urine WBC Ur Squamous Epith Cells Urine Bacteria Hyaline Casts Coronavirus (PCR) COVID-19 (DONTE) COVID-19 Clin Com Influenza Type A (PCR) Influenza Type B (PCR) RSV RNA Qual (PCR) 10/15/20 10/16/20 10/16/20 11:03 05:05 05:05 WBC 4.9 RBC 4.95 Hgb 14.6 Hct 48.4 H MCV 97.8 MCH 29.5 MCHC 30.2 L RDW 13.6 Plt Count Not Reportable MPV Not Reportable Immature Gran % (Auto) 0.6 H Neut % (Auto) 75.7 H Lymph % (Auto) 11.1 L [place] % (Auto) 12.6 H Eos % (Auto) 0.0 Baso % (Auto) 0.0 Lymph # (Auto) 0.5 L [place] # (Auto) 0.6 Eos # (Auto) 0.0 Baso # (Auto) 0.0 Abs Immat Gran (auto) 0.03 Absolute Neuts (auto) 3.7 Absolute Nucleated RBC 0.000 Nucleated RBC % (auto) 0.0 Smear Tech's Comments VERIFIED PT INR APTT Hold Blue Top ABG pH ABG pCO2 ABG pO2 ABG HCO3 ABG O2 Saturation ABG Base Excess VBG pH 7.33 VBG pCO2 75 VBG pO2 54 VBG HCO3 39 VBG O2 Saturation 87.9 VBG Base Excess 9.5 Oxygen Given Sodium 143 Potassium 5.2 H Chloride 99 Carbon Dioxide 36 H Anion Gap 13 BUN 23 H Creatinine 0.62 Estim Creat Clear Calc 100.2 Estimated GFR > 60 POC Glucose Random Glucose 122 H Fasting Glucose Lactic Acid Calcium 9.1 Phosphorus 2.0 L Magnesium 2.3 Total Bilirubin Direct Bilirubin AST ALT Alkaline Phosphatase Ammonia Troponin I High Sens B-Natriuretic Peptide Total Protein Albumin Vitamin B12 Folate Procalcitonin TSH Urine Color Urine Appearance Urine pH Ur Specific [place] Urine Protein Urine Glucose (UA) Urine Ketones Urine Blood Urine Nitrite Ur Leukocyte Esterase Urine RBC Urine WBC Ur Squamous Epith Cells Urine Bacteria Hyaline Casts Coronavirus (PCR) COVID-19 (DONTE) COVID-19 Clin Com Influenza Type A (PCR) Influenza Type B (PCR) RSV RNA Qual (PCR) 10/16/20 10/16/20 10/16/20 05:05 16:55 19:44 WBC RBC Hgb Hct MCV MCH MCHC RDW Plt Count MPV Immature Gran % (Auto) Neut % (Auto) Lymph % (Auto) [place] % (Auto) Eos % (Auto) Baso % (Auto) Lymph # (Auto) [place] # (Auto) Eos # (Auto) Baso # (Auto) Abs Immat Gran (auto) Absolute Neuts (auto) Absolute Nucleated RBC Nucleated RBC % (auto) Smear Tech's Comments PT INR APTT Hold Blue Top ABG pH 7.50 H ABG pCO2 48 H ABG pO2 87 ABG HCO3 37 H ABG O2 Saturation 98.0 ABG Base Excess 12.0 VBG pH 7.43 VBG pCO2 59 VBG pO2 66 VBG HCO3 38 VBG O2 Saturation 94.6 VBG Base Excess 11.0 Oxygen Given 70% Sodium Potassium Chloride Carbon Dioxide Anion Gap BUN Creatinine Estim Creat Clear Calc Estimated GFR POC Glucose Random Glucose Fasting Glucose Lactic Acid Calcium Phosphorus Magnesium Total Bilirubin Direct Bilirubin AST ALT Alkaline Phosphatase Ammonia Troponin I High Sens B-Natriuretic Peptide Total Protein Albumin Vitamin B12 Folate Procalcitonin Cancelled TSH Urine Color Urine Appearance Urine pH Ur Specific [place] Urine Protein Urine Glucose (UA) Urine Ketones Urine Blood Urine Nitrite Ur Leukocyte Esterase Urine RBC Urine WBC Ur Squamous Epith Cells Urine Bacteria Hyaline Casts Coronavirus (PCR) COVID-19 (DONTE) COVID-19 Clin Com Influenza Type A (PCR) Influenza Type B (PCR) RSV RNA Qual (PCR) 10/16/20 10/17/20 10/17/20 20:55 00:25 05:17 WBC RBC Hgb Hct MCV MCH MCHC RDW Plt Count MPV Immature Gran % (Auto) Neut % (Auto) Lymph % (Auto) [place] % (Auto) Eos % (Auto) Baso % (Auto) Lymph # (Auto) [place] # (Auto) Eos # (Auto) Baso # (Auto) Abs Immat Gran (auto) Absolute Neuts (auto) Absolute Nucleated RBC Nucleated RBC % (auto) Smear Tech's Comments PT INR APTT Hold Blue Top ABG pH ABG pCO2 ABG pO2 ABG HCO3 ABG O2 Saturation ABG Base Excess VBG pH 7.45 H 7.42 VBG pCO2 56 59 VBG pO2 63 52 VBG HCO3 38 38 VBG O2 Saturation 94.1 88.6 VBG Base Excess 11.2 10.4 Oxygen Given Sodium Potassium Chloride Carbon Dioxide Anion Gap BUN Creatinine Estim Creat Clear Calc Estimated GFR POC Glucose Random Glucose Fasting Glucose Lactic Acid Calcium Phosphorus Magnesium Total Bilirubin Direct Bilirubin AST ALT Alkaline Phosphatase Ammonia Troponin I High Sens B-Natriuretic Peptide Total Protein Albumin Vitamin B12 Folate Procalcitonin < 0.02 TSH Urine Color Urine Appearance Urine pH Ur Specific [place] Urine Protein Urine Glucose (UA) Urine Ketones Urine Blood Urine Nitrite Ur Leukocyte Esterase Urine RBC Urine WBC Ur Squamous Epith Cells Urine Bacteria Hyaline Casts Coronavirus (PCR) COVID-19 (DONTE) COVID-19 Clin Com Influenza Type A (PCR) Influenza Type B (PCR) RSV RNA Qual (PCR) 10/17/20 10/17/20 10/17/20 05:18 05:18 05:18 WBC 5.6 RBC 5.06 Hgb 14.9 Hct 49.0 H MCV 96.8 MCH 29.4 MCHC 30.4 L RDW 13.5 Plt Count 145 L MPV 11.4 Immature Gran % (Auto) 0.4 Neut % (Auto) 81.6 H Lymph % (Auto) 8.2 L [place] % (Auto) 9.8 Eos % (Auto) 0.0 Baso % (Auto) 0.0 Lymph # (Auto) 0.5 L [place] # (Auto) 0.6 Eos # (Auto) 0.0 Baso # (Auto) 0.0 Abs Immat Gran (auto) 0.02 Absolute Neuts (auto) 4.6 Absolute Nucleated RBC 0.000 Nucleated RBC % (auto) 0.0 Smear Tech's Comments VERIFIED PT INR APTT Hold Blue Top ABG pH ABG pCO2 ABG pO2 ABG HCO3 ABG O2 Saturation ABG Base Excess VBG pH VBG pCO2 VBG pO2 VBG HCO3 VBG O2 Saturation VBG Base Excess Oxygen Given Sodium 141 Potassium 4.7 Chloride 96 Carbon Dioxide 38 H Anion Gap 12 BUN 24 H Creatinine 0.64 Estim Creat Clear Calc 98.0 Estimated GFR > 60 POC Glucose Random Glucose 123 H Fasting Glucose Lactic Acid Calcium 9.1 Phosphorus 2.6 L Magnesium 2.3 Total Bilirubin Direct Bilirubin AST ALT Alkaline Phosphatase Ammonia Troponin I High Sens B-Natriuretic Peptide 604 H Total Protein Albumin Vitamin B12 Folate Procalcitonin TSH Urine Color Urine Appearance Urine pH Ur Specific [place] Urine Protein Urine Glucose (UA) Urine Ketones Urine Blood Urine Nitrite Ur Leukocyte Esterase Urine RBC Urine WBC Ur Squamous Epith Cells Urine Bacteria Hyaline Casts Coronavirus (PCR) COVID-19 (DONTE) COVID-19 Clin Com Influenza Type A (PCR) Influenza Type B (PCR) RSV RNA Qual (PCR) 10/17/20 10/18/20 10/18/20 05:18 05:58 05:58 WBC 10.0 RBC 5.38 Hgb 15.7 Hct 52.0 H MCV 96.7 MCH 29.2 MCHC 30.2 L RDW 13.4 Plt Count TNP MPV Not Reportable Immature Gran % (Auto) 0.5 H Neut % (Auto) 74.6 H Lymph % (Auto) 12.3 L [place] % (Auto) 12.2 H Eos % (Auto) 0.3 Baso % (Auto) 0.1 Lymph # (Auto) 1.2 [place] # (Auto) 1.2 Eos # (Auto) 0.0 Baso # (Auto) 0.0 Abs Immat Gran (auto) 0.05 H Absolute Neuts (auto) 7.5 Absolute Nucleated RBC 0.000 Nucleated RBC % (auto) 0.0 Smear Tech's Comments VERIFIED PT 12.4 INR 1.0 APTT 25.7 Hold Blue Top ABG pH ABG pCO2 ABG pO2 ABG HCO3 ABG O2 Saturation ABG Base Excess VBG pH VBG pCO2 VBG pO2 VBG HCO3 VBG O2 Saturation VBG Base Excess Oxygen Given Sodium 142 Potassium 4.3 Chloride 94 L Carbon Dioxide 42 H* Anion Gap 10 L BUN 17 H Creatinine 0.57 Estim Creat Clear Calc 107.2 Estimated GFR > 60 POC Glucose Random Glucose 86 Fasting Glucose Lactic Acid Calcium 8.9 Phosphorus 2.5 L Magnesium 2.2 Total Bilirubin Direct Bilirubin AST ALT Alkaline Phosphatase Ammonia Troponin I High Sens B-Natriuretic Peptide Total Protein Albumin 3.4 L Vitamin B12 Folate Procalcitonin TSH Urine Color Urine Appearance Urine pH Ur Specific [place] Urine Protein Urine Glucose (UA) Urine Ketones Urine Blood Urine Nitrite Ur Leukocyte Esterase Urine RBC Urine WBC Ur Squamous Epith Cells Urine Bacteria Hyaline Casts Coronavirus (PCR) COVID-19 (DONTE) COVID-19 Clin Com Influenza Type A (PCR) Influenza Type B (PCR) RSV RNA Qual (PCR) 10/18/20 10/20/20 10/20/20 05:58 05:50 05:50 WBC 7.6 RBC 5.34 Hgb 15.5 Hct 50.9 H MCV 95.3 MCH 29.0 MCHC 30.5 L RDW 13.4 Plt Count TNP MPV 11.9 Immature Gran % (Auto) 0.7 H Neut % (Auto) 68.1 Lymph % (Auto) 16.9 L [place] % (Auto) 12.5 H Eos % (Auto) 1.7 Baso % (Auto) 0.1 Lymph # (Auto) 1.3 [place] # (Auto) 1.0 Eos # (Auto) 0.1 Baso # (Auto) 0.0 Abs Immat Gran (auto) 0.05 H Absolute Neuts (auto) 5.2 Absolute Nucleated RBC 0.000 Nucleated RBC % (auto) 0.0 Smear Tech's Comments VERIFIED PT INR APTT Hold Blue Top ABG pH ABG pCO2 ABG pO2 ABG HCO3 ABG O2 Saturation ABG Base Excess VBG pH 7.39 VBG pCO2 69 VBG pO2 51 VBG HCO3 41 VBG O2 Saturation 87.3 VBG Base Excess 12.2 Oxygen Given Sodium 141 Potassium 4.1 Chloride 95 L Carbon Dioxide 40 H* Anion Gap 10 L BUN 19 H Creatinine 0.59 Estim Creat Clear Calc 103.2 Estimated GFR > 60 POC Glucose Random Glucose Fasting Glucose 85 Lactic Acid Calcium 8.3 L D Phosphorus Magnesium Total Bilirubin Direct Bilirubin AST ALT Alkaline Phosphatase Ammonia Troponin I High Sens B-Natriuretic Peptide Total Protein Albumin Vitamin B12 Folate Procalcitonin TSH Urine Color Urine Appearance Urine pH Ur Specific [place] Urine Protein Urine Glucose (UA) Urine Ketones Urine Blood Urine Nitrite Ur Leukocyte Esterase Urine RBC Urine WBC Ur Squamous Epith Cells Urine Bacteria Hyaline Casts Coronavirus (PCR) COVID-19 (DONTE) COVID-19 Clin Com Influenza Type A (PCR) Influenza Type B (PCR) RSV RNA Qual (PCR) 10/21/20 10/21/20 10/23/20 04:27 04:27 05:49 WBC 9.9 9.9 RBC 5.43 5.47 Hgb 15.8 16.0 Hct 51.4 H 51.5 H MCV 94.7 94.1 MCH 29.1 29.3 MCHC 30.7 L 31.1 RDW 13.7 13.7 Plt Count TNP TNP MPV TNP 12.8 H Immature Gran % (Auto) 0.3 0.4 Neut % (Auto) 73.6 H 66.5 Lymph % (Auto) 14.1 L 17.7 L [place] % (Auto) 11.3 H 14.5 H Eos % (Auto) 0.7 0.8 Baso % (Auto) 0.0 0.1 Lymph # (Auto) 1.4 1.8 [place] # (Auto) 1.1 1.4 H Eos # (Auto) 0.1 0.1 Baso # (Auto) 0.0 0.0 Abs Immat Gran (auto) 0.03 0.04 H Absolute Neuts (auto) 7.3 6.6 Absolute Nucleated RBC 0.000 0.000 Nucleated RBC % (auto) 0.0 0.0 Smear Tech's Comments VERIFIED PT INR APTT Hold Blue Top ABG pH ABG pCO2 ABG pO2 ABG HCO3 ABG O2 Saturation ABG Base Excess VBG pH VBG pCO2 VBG pO2 VBG HCO3 VBG O2 Saturation VBG Base Excess Oxygen Given Sodium 140 Potassium 4.0 Chloride 95 L Carbon Dioxide 34 H Anion Gap 15 BUN 23 H Creatinine 0.61 Estim Creat Clear Calc 99.8 Estimated GFR > 60 POC Glucose Random Glucose Fasting Glucose 89 Lactic Acid Calcium 8.6 Phosphorus Magnesium Total Bilirubin Direct Bilirubin AST ALT Alkaline Phosphatase Ammonia Troponin I High Sens B-Natriuretic Peptide Total Protein Albumin Vitamin B12 Folate Procalcitonin TSH Urine Color Urine Appearance Urine pH Ur Specific [place] Urine Protein Urine Glucose (UA) Urine Ketones Urine Blood Urine Nitrite Ur Leukocyte Esterase Urine RBC Urine WBC Ur Squamous Epith Cells Urine Bacteria Hyaline Casts Coronavirus (PCR) COVID-19 (DONTE) COVID-19 Clin Com Influenza Type A (PCR) Influenza Type B (PCR) RSV RNA Qual (PCR) 10/23/20 10/24/20 10/24/20 05:49 05:24 05:24 WBC 9.8 RBC 5.17 Hgb 15.3 Hct 48.7 H MCV 94.2 MCH 29.6 MCHC 31.4 RDW 13.8 Plt Count 98 L D MPV 12.6 H Immature Gran % (Auto) 0.4 Neut % (Auto) 66.4 Lymph % (Auto) 16.9 L [place] % (Auto) 15.3 H Eos % (Auto) 0.9 Baso % (Auto) 0.1 Lymph # (Auto) 1.7 [place] # (Auto) 1.5 H Eos # (Auto) 0.1 Baso # (Auto) 0.0 Abs Immat Gran (auto) 0.04 H Absolute Neuts (auto) 6.5 Absolute Nucleated RBC 0.000 Nucleated RBC % (auto) 0.0 Smear Tech's Comments VERIFIED PT INR APTT Hold Blue Top ABG pH ABG pCO2 ABG pO2 ABG HCO3 ABG O2 Saturation ABG Base Excess VBG pH VBG pCO2 VBG pO2 VBG HCO3 VBG O2 Saturation VBG Base Excess Oxygen Given Sodium 141 140 Potassium 4.6 4.0 Chloride 92 L 92 L Carbon Dioxide 38 H 36 H Anion Gap 16 16 BUN 22 H 22 H Creatinine 0.65 0.59 Estim Creat Clear Calc 92.7 102.2 Estimated GFR > 60 > 60 POC Glucose Random Glucose Fasting Glucose 98 81 Lactic Acid Calcium 9.2 D 8.8 Phosphorus Magnesium Total Bilirubin Direct Bilirubin AST ALT Alkaline Phosphatase Ammonia Troponin I High Sens B-Natriuretic Peptide Total Protein Albumin Vitamin B12 Folate Procalcitonin TSH Urine Color Urine Appearance Urine pH Ur Specific [place] Urine Protein Urine Glucose (UA) Urine Ketones Urine Blood Urine Nitrite Ur Leukocyte Esterase Urine RBC Urine WBC Ur Squamous Epith Cells Urine Bacteria Hyaline Casts Coronavirus (PCR) COVID-19 (DONTE) COVID-19 Clin Com Influenza Type A (PCR) Influenza Type B (PCR) RSV RNA Qual (PCR) 10/24/20 10/25/20 10/25/20 22:24 05:37 05:37 WBC 9.5 RBC 5.22 Hgb 15.2 Hct 49.1 H MCV 94.1 MCH 29.1 MCHC 31.0 RDW 13.8 Plt Count 100 L MPV 12.4 H Immature Gran % (Auto) 0.5 H Neut % (Auto) 65.9 Lymph % (Auto) 17.8 L [place] % (Auto) 15.0 H Eos % (Auto) 0.6 Baso % (Auto) 0.2 Lymph # (Auto) 1.7 [place] # (Auto) 1.4 H Eos # (Auto) 0.1 Baso # (Auto) 0.0 Abs Immat Gran (auto) 0.05 H Absolute Neuts (auto) 6.2 Absolute Nucleated RBC 0.000 Nucleated RBC % (auto) 0.0 Smear Tech's Comments PT INR APTT Hold Blue Top ABG pH ABG pCO2 ABG pO2 ABG HCO3 ABG O2 Saturation ABG Base Excess VBG pH VBG pCO2 VBG pO2 VBG HCO3 VBG O2 Saturation VBG Base Excess Oxygen Given Sodium 140 Potassium 4.1 Chloride 92 L Carbon Dioxide 36 H Anion Gap 16 BUN 26 H Creatinine 0.65 Estim Creat Clear Calc 92.7 Estimated GFR > 60 POC Glucose 103 Random Glucose Fasting Glucose 88 Lactic Acid Calcium 8.8 Phosphorus Magnesium 2.4 Total Bilirubin Direct Bilirubin AST ALT Alkaline Phosphatase Ammonia Troponin I High Sens B-Natriuretic Peptide Total Protein Albumin Vitamin B12 Folate Procalcitonin TSH Urine Color Urine Appearance Urine pH Ur Specific [place] Urine Protein Urine Glucose (UA) Urine Ketones Urine Blood Urine Nitrite Ur Leukocyte Esterase Urine RBC Urine WBC Ur Squamous Epith Cells Urine Bacteria Hyaline Casts Coronavirus (PCR) COVID-19 (DONTE) COVID-19 Clin Com Influenza Type A (PCR) Influenza Type B (PCR) RSV RNA Qual (PCR) 10/26/20 10/27/20 10/27/20 05:28 05:05 05:24 WBC RBC Hgb Hct MCV MCH MCHC RDW Plt Count MPV Immature Gran % (Auto) Neut % (Auto) Lymph % (Auto) [place] % (Auto) Eos % (Auto) Baso % (Auto) Lymph # (Auto) [place] # (Auto) Eos # (Auto) Baso # (Auto) Abs Immat Gran (auto) Absolute Neuts (auto) Absolute Nucleated RBC Nucleated RBC % (auto) Smear Tech's Comments PT INR APTT Hold Blue Top ABG pH 7.49 H ABG pCO2 48 H ABG pO2 62 L ABG HCO3 36 H ABG O2 Saturation 92.5 ABG Base Excess 10.1 VBG pH VBG pCO2 VBG pO2 VBG HCO3 VBG O2 Saturation VBG Base Excess Oxygen Given 8 L Sodium 139 Potassium 3.7 Chloride 90 L Carbon Dioxide 35 H Anion Gap 18 BUN 31 H Creatinine 0.72 Estim Creat Clear Calc 82.2 Estimated GFR > 60 POC Glucose Random Glucose Fasting Glucose 101 H Lactic Acid Calcium 9.2 Phosphorus Magnesium 2.2 Total Bilirubin Direct Bilirubin AST ALT Alkaline Phosphatase Ammonia Troponin I High Sens B-Natriuretic Peptide 32 Total Protein Albumin Vitamin B12 Folate Procalcitonin TSH Urine Color Urine Appearance Urine pH Ur Specific [place] Urine Protein Urine Glucose (UA) Urine Ketones Urine Blood Urine Nitrite Ur Leukocyte Esterase Urine RBC Urine WBC Ur Squamous Epith Cells Urine Bacteria Hyaline Casts Coronavirus (PCR) COVID-19 (DONTE) COVID-19 Clin Com Influenza Type A (PCR) Influenza Type B (PCR) RSV RNA Qual (PCR) 10/27/20 10/27/20 10/28/20 05:24 05:24 00:13 WBC 12.9 H RBC 5.13 Hgb 14.9 Hct 48.0 H MCV 93.6 MCH 29.0 MCHC 31.0 RDW 14.0 Plt Count 103 L MPV 12.9 H Immature Gran % (Auto) Neut % (Auto) Lymph % (Auto) [place] % (Auto) Eos % (Auto) Baso % (Auto) Lymph # (Auto) [place] # (Auto) Eos # (Auto) Baso # (Auto) Abs Immat Gran (auto) Absolute Neuts (auto) Absolute Nucleated RBC 0.000 Nucleated RBC % (auto) 0.0 Smear Tech's Comments PT 13.4 H INR 1.1 APTT 29.5 Hold Blue Top ABG pH ABG pCO2 ABG pO2 ABG HCO3 ABG O2 Saturation ABG Base Excess VBG pH VBG pCO2 VBG pO2 VBG HCO3 VBG O2 Saturation VBG Base Excess Oxygen Given Sodium 141 Potassium 4.1 Chloride 93 L Carbon Dioxide 36 H Anion Gap 16 BUN 30 H Creatinine 0.67 Estim Creat Clear Calc 88.4 Estimated GFR > 60 POC Glucose Random Glucose 88 Fasting Glucose Lactic Acid Calcium 8.9 Phosphorus Magnesium Total Bilirubin Direct Bilirubin AST ALT Alkaline Phosphatase Ammonia Troponin I High Sens B-Natriuretic Peptide Total Protein Albumin Vitamin B12 Folate Procalcitonin TSH Urine Color Urine Appearance Urine pH Ur Specific [place] Urine Protein Urine Glucose (UA) Urine Ketones Urine Blood Urine Nitrite Ur Leukocyte Esterase Urine RBC Urine WBC Ur Squamous Epith Cells Urine Bacteria Hyaline Casts Coronavirus (PCR) COVID-19 (DONTE) COVID-19 Clin Com Influenza Type A (PCR) Influenza Type B (PCR) RSV RNA Qual (PCR) 10/28/20 10/28/20 10/28/20 04:27 04:27 09:30 WBC 11.0 H RBC 5.01 Hgb 14.8 Hct 47.5 H MCV 94.8 MCH 29.5 MCHC 31.2 RDW 14.3 Plt Count 118 L MPV 11.7 Immature Gran % (Auto) Neut % (Auto) Lymph % (Auto) [place] % (Auto) Eos % (Auto) Baso % (Auto) Lymph # (Auto) [place] # (Auto) Eos # (Auto) Baso # (Auto) Abs Immat Gran (auto) Absolute Neuts (auto) Absolute Nucleated RBC 0.000 Nucleated RBC % (auto) 0.0 Smear Tech's Comments PT INR APTT Hold Blue Top ABG pH 7.46 H ABG pCO2 55 H ABG pO2 79 L ABG HCO3 38 H ABG O2 Saturation 95.5 ABG Base Excess 11.2 VBG pH VBG pCO2 VBG pO2 VBG HCO3 VBG O2 Saturation VBG Base Excess Oxygen Given 6 L Sodium 141 Potassium 3.8 Chloride 91 L Carbon Dioxide 40 H* Anion Gap 14 BUN 34 H Creatinine 0.86 Estim Creat Clear Calc 68.9 Estimated GFR > 60 POC Glucose Random Glucose 107 Fasting Glucose Lactic Acid Calcium 9.2 Phosphorus Magnesium Total Bilirubin Direct Bilirubin AST ALT Alkaline Phosphatase Ammonia Troponin I High Sens B-Natriuretic Peptide Total Protein Albumin Vitamin B12 Folate Procalcitonin TSH Urine Color Urine Appearance Urine pH Ur Specific [place] Urine Protein Urine Glucose (UA) Urine Ketones Urine Blood Urine Nitrite Ur Leukocyte Esterase Urine RBC Urine WBC Ur Squamous Epith Cells Urine Bacteria Hyaline Casts Coronavirus (PCR) COVID-19 (DONTE) COVID-19 Clin Com Influenza Type A (PCR) Influenza Type B (PCR) RSV RNA Qual (PCR) 10/28/20 10/29/20 10/29/20 23:36 05:20 05:21 WBC 9.4 RBC 4.87 Hgb 14.4 Hct 46.0 MCV 94.5 MCH 29.6 MCHC 31.3 RDW 14.3 Plt Count 121 L MPV 12.3 Immature Gran % (Auto) Neut % (Auto) Lymph % (Auto) [place] % (Auto) Eos % (Auto) Baso % (Auto) Lymph # (Auto) [place] # (Auto) Eos # (Auto) Baso # (Auto) Abs Immat Gran (auto) Absolute Neuts (auto) Absolute Nucleated RBC 0.000 Nucleated RBC % (auto) 0.0 Smear Tech's Comments PT 13.9 H INR 1.2 H APTT Hold Blue Top ABG pH ABG pCO2 ABG pO2 ABG HCO3 ABG O2 Saturation ABG Base Excess VBG pH VBG pCO2 VBG pO2 VBG HCO3 VBG O2 Saturation VBG Base Excess Oxygen Given Sodium 141 Potassium 3.6 Chloride 92 L Carbon Dioxide 38 H Anion Gap 15 BUN 42 H Creatinine 0.83 Estim Creat Clear Calc 71.3 Estimated GFR > 60 POC Glucose Random Glucose 91 Fasting Glucose Lactic Acid Calcium 9.1 Phosphorus Magnesium Total Bilirubin Direct Bilirubin AST ALT Alkaline Phosphatase Ammonia Troponin I High Sens B-Natriuretic Peptide Total Protein Albumin Vitamin B12 Folate Procalcitonin TSH Urine Color Urine Appearance Urine pH Ur Specific [place] Urine Protein Urine Glucose (UA) Urine Ketones Urine Blood Urine Nitrite Ur Leukocyte Esterase Urine RBC Urine WBC Ur Squamous Epith Cells Urine Bacteria Hyaline Casts Coronavirus (PCR) COVID-19 (DONTE) COVID-19 Clin Com Influenza Type A (PCR) Influenza Type B (PCR) RSV RNA Qual (PCR) 10/29/20 10/29/20 10/30/20 16:47 20:06 05:38 WBC 7.9 RBC 4.89 Hgb 14.3 Hct 46.1 MCV 94.3 MCH 29.2 MCHC 31.0 RDW 14.2 Plt Count 130 L MPV 12.0 Immature Gran % (Auto) Neut % (Auto) Lymph % (Auto) [place] % (Auto) Eos % (Auto) Baso % (Auto) Lymph # (Auto) [place] # (Auto) Eos # (Auto) Baso # (Auto) Abs Immat Gran (auto) Absolute Neuts (auto) Absolute Nucleated RBC 0.000 Nucleated RBC % (auto) 0.0 Smear Tech's Comments PT INR APTT Hold Blue Top ABG pH ABG pCO2 ABG pO2 ABG HCO3 ABG O2 Saturation ABG Base Excess VBG pH VBG pCO2 VBG pO2 VBG HCO3 VBG O2 Saturation VBG Base Excess Oxygen Given Sodium Potassium Chloride Carbon Dioxide Anion Gap BUN Creatinine Estim Creat Clear Calc Estimated GFR POC Glucose 138 H 150 H Random Glucose Fasting Glucose Lactic Acid Calcium Phosphorus Magnesium Total Bilirubin Direct Bilirubin AST ALT Alkaline Phosphatase Ammonia Troponin I High Sens B-Natriuretic Peptide Total Protein Albumin Vitamin B12 Folate Procalcitonin TSH Urine Color Urine Appearance Urine pH Ur Specific [place] Urine Protein Urine Glucose (UA) Urine Ketones Urine Blood Urine Nitrite Ur Leukocyte Esterase Urine RBC Urine WBC Ur Squamous Epith Cells Urine Bacteria Hyaline Casts Coronavirus (PCR) COVID-19 (DONTE) COVID-19 Clin Com Influenza Type A (PCR) Influenza Type B (PCR) RSV RNA Qual (PCR) 10/30/20 11/01/20 11/02/20 05:38 05:47 13:30 WBC RBC Hgb Hct MCV MCH MCHC RDW Plt Count MPV Immature Gran % (Auto) Neut % (Auto) Lymph % (Auto) [place] % (Auto) Eos % (Auto) Baso % (Auto) Lymph # (Auto) [place] # (Auto) Eos # (Auto) Baso # (Auto) Abs Immat Gran (auto) Absolute Neuts (auto) Absolute Nucleated RBC Nucleated RBC % (auto) Smear Tech's Comments PT INR APTT Hold Blue Top ABG pH ABG pCO2 ABG pO2 ABG HCO3 ABG O2 Saturation ABG Base Excess VBG pH VBG pCO2 VBG pO2 VBG HCO3 VBG O2 Saturation VBG Base Excess Oxygen Given Sodium 140 139 Potassium 3.6 4.5 D Chloride 94 L 93 L Carbon Dioxide 37 H 37 H Anion Gap 13 14 BUN 42 H 26 H Creatinine 0.74 0.75 Estim Creat Clear Calc 80.0 76.7 Estimated GFR > 60 > 60 POC Glucose Random Glucose 87 93 Fasting Glucose Lactic Acid Calcium 9.2 9.3 Phosphorus Magnesium Total Bilirubin Direct Bilirubin AST ALT Alkaline Phosphatase Ammonia Troponin I High Sens B-Natriuretic Peptide Total Protein Albumin Vitamin B12 Folate Procalcitonin TSH Urine Color Urine Appearance Urine pH Ur Specific [place] Urine Protein Urine Glucose (UA) Urine Ketones Urine Blood Urine Nitrite Ur Leukocyte Esterase Urine RBC Urine WBC Ur Squamous Epith Cells Urine Bacteria Hyaline Casts Coronavirus (PCR) COVID-19 (DONTE) Negative COVID-19 Clin Com See Note Influenza Type A (PCR) Influenza Type B (PCR) RSV RNA Qual (PCR) 11/03/20 05:10 WBC RBC Hgb Hct MCV MCH MCHC RDW Plt Count MPV Immature Gran % (Auto) Neut % (Auto) Lymph % (Auto) [place] % (Auto) Eos % (Auto) Baso % (Auto) Lymph # (Auto) [place] # (Auto) Eos # (Auto) Baso # (Auto) Abs Immat Gran (auto) Absolute Neuts (auto) Absolute Nucleated RBC Nucleated RBC % (auto) Smear Tech's Comments PT INR APTT Hold Blue Top ABG pH ABG pCO2 ABG pO2 ABG HCO3 ABG O2 Saturation ABG Base Excess VBG pH VBG pCO2 VBG pO2 VBG HCO3 VBG O2 Saturation VBG Base Excess Oxygen Given Sodium 139 Potassium 4.8 Chloride 95 L Carbon Dioxide 36 H Anion Gap 13 BUN 25 H Creatinine 0.74 Estim Creat Clear Calc 77.7 Estimated GFR > 60 POC Glucose Random Glucose 105 Fasting Glucose Lactic Acid Calcium 9.1 Phosphorus Magnesium Total Bilirubin Direct Bilirubin AST ALT Alkaline Phosphatase Ammonia Troponin I High Sens B-Natriuretic Peptide Total Protein Albumin Vitamin B12 Folate Procalcitonin TSH Urine Color Urine Appearance Urine pH Ur Specific [place] Urine Protein Urine Glucose (UA) Urine Ketones Urine Blood Urine Nitrite Ur Leukocyte Esterase Urine RBC Urine WBC Ur Squamous Epith Cells Urine Bacteria Hyaline Casts Coronavirus (PCR) COVID-19 (DONTE) COVID-19 Clin Com Influenza Type A (PCR) Influenza Type B (PCR) RSV RNA Qual (PCR) Discharge Plan Discharge Patient Disposition: Xfer SNF Referrals: [facility] [Outside] Clint Tong MD [Primary Care Provider] - Discharge Medications: New furosemide 40 mg Tablet 40 mg PO DAILY Qty: 30 RF: 0 polyethylene glycol 3350 17 gram Powder In Packet 17 g PO DAILY Qty: 30 RF: 0 carvedilol 3.125 mg Tablet 3.125 mg PO BID Qty: 30 RF: 0 bisacodyl [Gentle Laxative (bisacodyl)] 10 mg Suppository 10 mg MA DAILY PRN (Reason: Constipation) Qty: 30 RF: 0 losartan 25 mg Tablet 25 mg PO DAILY Qty: 30 RF: 0 nystatin 100,000 unit/gram Powder 1 appl topical BID Qty: 1 RF: 0 Eliquis 5 mg Tablet 5 mg PO BID Qty: 60 RF: 0 Breo Ellipta 100-25 mcg/dose Blister With Device 1 puff inhalation RDAILY Qty: 1 RF: 0 guaifenesin [Mucinex] 600 mg Tablet Extended Release 12hr 600 mg PO BID Qty: 20 RF: 0 Continued amlodipine 5 mg tablet 1 tab PO DAILY RF: 0 Changed ipratropium-albuterol 0.5 mg-3 mg(2.5 mg base)/3 mL solution for nebulization 3 ml inhalation QID 30 Days Qty: 270 RF: 6 Discontinued atorvastatin 20 mg tablet 1 tab PO DAILY RF: 0 albuterol sulfate 2.5 mg /3 mL (0.083 %) solution for nebulization 1 vial inhalation Q4H RF: 0 clonazepam 1 mg Tablet 1 mg PO DAILY RF: 0 clonazepam 1 mg tablet 2 mg PO BEDTIME RF: 0 Atrovent HFA 17 mcg/actuation HFA aerosol inhaler 2 puff inhalation QID RF: 0 clonazepam 1 mg tablet 0 mg PO RF: 0 amlodipine 5 mg tablet 5 mg PO DAILY RF: 0 tramadol 50 mg tablet 50 mg PO BID PRNRF: 0 valsartan 160 mg tablet 160 mg PO DAILY RF: 0 metoprolol tartrate 25 mg tablet 25 mg PO BID RF: 0 Atrovent HFA 17 mcg/actuation HFA aerosol inhaler 2 puff inhalation QID RF: 0 Discharge Orders: Discharge Order (Routine); Ordered 11/03/20 Ordered By: Jared Ruth Diet: low fat, low cholesterol and low salt diet Activity on Discharge: As tolerated Visit Report Forms: Patient Portal Discharge page Care Plan Goals: Gradually wean oxygen currently on 3 L patient is not on home oxygen Health Concerns: Hypercarbic respiratory failure continue BiPAP at night Plan of Treatment: Outpatient follow-up with primary care physician and pulmonology.
[2020-11-03] MEDS: Tamsulosin HCL 0.4 MG CAPSULE PO (16:16)
--- NOTE | 2020-11-03 16:52 | PM.OP ---
Brief Operative Note Date of Service: 11/03/20 Pre-op diagnosis: right lung atelectasisd Post-op diagnosis: same Procedure: Bronchoscopy with therapeutic cleaning Surgeon: William Mccurdy MD Anesthesia: GETA Estimated blood loss (mL): 0 Pathology: none sent Condition: stable Disposition: floor
== END 2020-11-03 20:30 | disposition skilled nursing facility (03) | DRG 291 ==
LOC: HO.ED 10-14 02:59 → HO.ICU 10-14 04:18 → HO.IMC 10-18 05:15
PROVIDERS: Internal Medicine; Physician Assistant; Registered Nurse Community Health; Student in an Organized Health Care Education/Training Program; Admitting Provider Internal Medicine Cardiovascular Disease; Emergency Provider Emergency Medicine; PCP Internal Medicine; Visit Provider Hospitalist
DX: I11.0 Hypertensive heart disease with heart failure (principal); J96.22 Acute and chronic respiratory failure with hypercapnia; J96.21 Acute and chronic respiratory failure with hypoxia; I26.09 Other pulmonary embolism with acute cor pulmonale; G93.41 Metabolic encephalopathy; J18.9 Pneumonia, unspecified organism; E66.2 Morbid (severe) obesity with alveolar hypoventilation; J98.11 Atelectasis; E87.3 Alkalosis; E87.5 Hyperkalemia; I50.33 Acute on chronic diastolic (congestive) heart failure; J43.9 Emphysema, unspecified; Z68.39 Body mass index [BMI] 39.0-39.9, adult; Z99.81 Dependence on supplemental oxygen; Z20.822 Contact with and (suspected) exposure to COVID-19; Z79.01 Long term (current) use of anticoagulants; Z79.899 Other long term (current) drug therapy
CPT/HCPCS: 0241U; 36415; 36600; 70450; 71045; 71250; 71275; 80048; 80076; 81001; 82040; 82140; 82607; 82746; 82803; 82947; 83605; 83735; 83880; 84100; 84145; 84443; 84484; 85025; 85027; 85610; 85730; 87040; 87635; 92526; 92610; 93005; 93306; 94640; 94660; 94664; 96365; 96375; 97110; 97116; 97163; 97530; 99202; 99285; 99291; 99292; C1758; J1650; J1940; J2060; J2543; J2920; Q9967

== ENCOUNTER → 2020-11-25 13:24 | Outpatient (BNVA) | payer MEDICARE, MEDICAID, SELFPAY | PROVIDERS: PCP Internal Medicine; Visit Provider Internal Medicine Pulmonary Disease | DX: J44.9 Chronic obstructive pulmonary disease, unspecified (principal); G47.33 Obstructive sleep apnea (adult) (pediatric); Z99.81 Dependence on supplemental oxygen | CPT/HCPCS: 99212 ==

== ENCOUNTER → 2020-12-31 11:39 | Outpatient (BNVA) | payer MEDICARE, MEDICAID, SELFPAY | PROVIDERS: PCP Internal Medicine; Visit Provider Internal Medicine Pulmonary Disease | DX: J44.9 Chronic obstructive pulmonary disease, unspecified (principal); G47.33 Obstructive sleep apnea (adult) (pediatric); Z99.81 Dependence on supplemental oxygen | CPT/HCPCS: 99212 ==

== ENCOUNTER 2021-02-24 16:19 | Outpatient (REF) | payer MEDICARE, MEDICAID, SELFPAY ==
[2021-02-24 17:08] LABS: MANUAL DIFF FLAG NO
[2021-02-24 17:10] LABS: Basophils Percent Auto 0.4 % (0-2); Eosinophils Absolute Auto 0.2 X10*3/uL (0.0-0.4); Eosinophils Percent Auto 2.1 % (0-4); Hematocrit 44.6 % (37-47); Hemoglobin 14.3 g/dl (12.0-16.0); Imm Gran Abs Auto 0.03 X10*3/uL (0.00-0.03); Imm Gran Pct Auto 0.4 % (0.0-0.4); Lymphocytes Absolute Auto 1.6 X10*3/uL (1.2-4.9); Lymphocytes Percent Auto 22.1 % (20-40); Mean Corpuscular HGB Conc 32.1 g/dl (31.0-35.0); Mean Corpuscular Hemoglobin 31.4 pg (27.0-33.0); Mean Corpuscular Volume 97.8 fL (80-98); Mean Platelet Volume 10.4 fL (9.4-12.3); Monocytes Absolute Auto 0.6 X10*3/uL (0.1-1.2); Monocytes Percent Auto 7.9 % (2-11); Neutrophils Absolute Auto 4.9 X10*3/uL (2.0-8.3); Neutrophils Percent Auto 67.1 % (45-73); Platelet Count 235 X10*3/uL (160-400); Red Blood Count 4.56 X10*6/uL (4.20-5.50); Red Cell Distribution Width 12.5 % (11.0-16.0); White Blood Count 7.2 X10*3/uL (4.8-10.8)
[2021-02-24 17:47] LABS: Anion Gap 15 (12-20); Blood Urea Nitrogen 16 mg/dL (9-16); Calcium 9.4 mg/dL (8.4-10.2); Carbon Dioxide 32 mmol/L (22-29); Chloride 97 mmol/L (96-108); Estimated Glomerular Filt Rate > 60; Glucose Random 88 mg/dL (60-115); Potassium 4.6 mmol/L (3.3-5.1); Sodium 139 mmol/L (135-145)
== END 2021-02-24 16:20 | disposition home or self-care (01) ==
LOC: HO.LAB 16:19
PROVIDERS: PCP Internal Medicine; Visit Provider Internal Medicine
DX: J44.9 Chronic obstructive pulmonary disease, unspecified (principal); K21.9 Gastro-esophageal reflux disease without esophagitis; I11.0 Hypertensive heart disease with heart failure; I50.9 Heart failure, unspecified
CPT/HCPCS: 36415; 80048; 85025

== ENCOUNTER 2022-01-07 16:03 | Inpatient (IN) | payer MEDICARE, MEDICAID, SELFPAY ==
--- NOTE | 2022-01-07 | ECG_ITS ---
Test Reason : CHEST PAIN Blood Pressure : / mmHG Vent. Rate : 081 BPM Atrial Rate : 081 BPM P-R Int : 148 ms QRS Dur : 096 ms QT Int : 398 ms P-R-T Axes : 115 009 017 degrees QTc Int : 462 ms Normal sinus rhythm Low voltage QRS Borderline ECG No previous ECGs available Referred By: Generic ED Physician Electronically Signed By:Alfonso Abel
--- NOTE | ~2022-01-07 | US_ITS ---
EXAMINATION: US ABDOMEN LIMITED CLINICAL INFORMATION: Right upper quadrant pain. COMPARISON: CT abdomen/pelvis done earlier today at 7:02 PM. TECHNIQUE: Real-time imaging of the gallbladder. US/US abdomen limited FINDINGS/IMPRESSION: Examination is limited due to patient body habitus. There is cholelithiasis and sludge with a positive Valencia's suggesting acute cholecystitis in the appropriate clinical context. However, there is no significant wall thickening or pericholecystic free fluid. There is also mild nonspecific dilatation of the CBD which measures up to 0.8 cm. If indicated, correlation with an MRCP could be obtained.
--- NOTE | ~2022-01-07 | CT_ITS ---
EXAMINATION: CT ABDOMEN AND PELVIS WITH CONTRAST CLINICAL INFORMATION: Right-sided abdominal pain COMPARISON: None TECHNIQUE: Multidetector volumetric images were obtained from the superior aspect of the liver through the pubic symphysis following administration 85 mL of Omnipaque 350 intravenous contrast. Sagittal and coronal reformatted images were obtained on the technologist's workstation. Oral contrast: No This CT examination was performed using dose optimization techniques as appropriate, variously including the following: *Automated exposure control *Adjustment of mA and/or kV according to patient size (this includes techniques or standardized protocols for targeted exams where dose is matched to indication/reason for exam; i.e. extremities or head) *Use of iterative reconstruction technique DLP: 1043 mGy-cm FINDINGS: LUNG BASES: Small sliding hiatal hernia. LIVER, GALLBLADDER, AND BILIARY TREE: The liver is normal in size, shape, and attenuation. No focal hepatic lesion or biliary ductal dilatation is present. Multiple gallstones. PANCREAS: Generalized mild fatty replacement. There is a 2.9 cm cyst/pseudocyst at the posterior aspect of the pancreatic head and there is mild inflammatory stranding in the adjacent fat suggesting pancreatitis. Correlate with serum amylase and lipase. SPLEEN: Unremarkable. ADRENAL GLANDS: Unremarkable. KIDNEYS AND URETERS: The kidneys are normal in size, shape, and attenuation. No hydronephrosis, hydroureter, or calculi seen. No perinephric stranding. BLADDER: Unremarkable. GASTROINTESTINAL TRACT: Severe diverticulosis of the descending and sigmoid colon. No evidence of acute diverticulitis. There is a duodenal diverticulum. Normal appendix. ABDOMINAL WALL: No significant hernia is appreciated. LYMPH NODES: Normal. VASCULAR: Scattered atherosclerotic calcifications. PELVIC VISCERA: Unremarkable. OSSEOUS STRUCTURES: Multilevel spondylosis with grade 1 anterolisthesis of L4-L5 where there is severe bilateral facet arthrosis. Transitional lumbosacral junction articulating on the right with degenerative change. CT/CT abdomen pelvis w con IMPRESSION: Hazy attenuation of the peripancreatic fat in the region of the pancreatic head. Correlate with serum amylase for possibility of pancreatitis. There is a 2.9 cm simple appearing cyst/pseudocyst of the posterior aspect of the pancreatic head. There is also an adjacent duodenal diverticulum. Multiple gallstones are noted. No intrahepatic biliary ductal dilatation. Marked descending and sigmoid colon diverticulosis. Fleischner guidelines were followed.
--- NOTE | ~2022-01-07 | MR_ITS ---
EXAMINATION: MR ABDOMEN WITHOUT CONTRAST CLINICAL INFORMATION: Abdominal pain. Gallstones and gallstone pancreatitis COMPARISON: Previous CT of the abdomen and pelvis and abdominal ultrasound from yesterday TECHNIQUE: MR abdomen is performed without gadolinium contrast. MRCP sequences were performed. FINDINGS: LUNG BASES: The visualized lung bases are unremarkable. LIVER, GALLBLADDER, AND BILIARY TREE: The liver is normal in size, smooth in contour, and normal in signal. There is a tiny right T2 lesion in the posterior segment of the right lobe of the liver may represent a small cyst. No other focal hepatic lesion. The gallbladder is normal in size. There are gallstones in the gallbladder. There is a small amount of pericholecystic fluid and gallbladder wall edema suggestive of acute cholecystitis. Intra and extrahepatic bile ducts are normal in caliber. The common bile duct measures 0.7 cm. MRCP sequences are suboptimal due to artifact from respiratory motion. No common bile duct stone is seen. PANCREAS: There is fatty infiltration of the pancreas. There is a 1.5 x 2 cm cyst in the uncinate process of the head of the pancreas. There is question of slight increased T2 signal and stranding of the fat surrounding the pancreas questionable for mild pancreatitis. The main pancreatic duct is normal. SPLEEN: Unremarkable. ADRENAL GLANDS: Unremarkable. KIDNEYS AND URETERS: The kidneys are normal in size and shape. There is a 2 cm left renal cyst. No hydronephrosis. No perinephric stranding. GASTROINTESTINAL TRACT: There is a duodenal diverticulum adjacent to the head of the pancreas. There is mild diverticulosis of the colon. ABDOMINAL WALL: No significant hernia is appreciated. LYMPH NODES: No lymphadenopathy. VASCULAR: Unremarkable. OSSEOUS STRUCTURES: Marrow signal normal. There are degenerative changes of the spine. There is mild anterior subluxation of L4 with respect L5 probably related to facet arthritis. MR/MR MRCP IMPRESSION: Gallstones. Gallbladder wall changes and small amount of pericholecystic fluid suggestive of acute cholecystitis. Limited MRCP due to motion artifact. Normal caliber intra and extrahepatic bile ducts. No common bile duct stone seen. 1.5 x 2 cm cyst in the uncinate process of the head of the pancreas. Question mild inflammatory changes in the fat surrounding surrounding the pancreas questionable for mild pancreatitis. The main pancreatic duct is normal. Left renal cyst. Diverticulosis of the colon. Duodenal diverticulum adjacent to the head of the pancreas.
[2022-01-07 16:11] VITALS: BP 141/68; PULSE 84; RESP 20; TEMP 36.6; O2SAT 92; BMI 41.5
[2022-01-07 16:46] LABS: MANUAL DIFF FLAG NO
[2022-01-07 16:48] LABS: Basophils Percent Auto 0.2 % (0-2); Eosinophils Absolute Auto 0.1 X10*3/uL (0.0-0.4); Eosinophils Percent Auto 0.4 % (0-4); Hematocrit 44.3 % (37.0-47.0); Hemoglobin 14.2 g/dl (12.0-16.0); Imm Gran Abs Auto 0.09 X10*3/uL (0.00-0.03); Imm Gran Pct Auto 0.5 % (0.0-0.4); Lymphocytes Absolute Auto 1.5 X10*3/uL (1.2-4.9); Lymphocytes Percent Auto 8.5 % (20-40); Mean Corpuscular HGB Conc 32.1 g/dl (31.0-35.0); Mean Corpuscular Hemoglobin 30.2 pg (27.0-33.0); Mean Corpuscular Volume 94.3 fL (80.0-98.0); Mean Platelet Volume 10.3 fL (9.4-12.3); Monocytes Percent Auto 5.5 % (2-11); Neutrophils Absolute Auto 15.3 x10*3/uL (2.0-8.3); Neutrophils Percent Auto 84.9 % (45-73); Platelet Count 267 X10*3/uL (160-400); Red Cell Distribution Width 13.4 % (11.0-16.0); White Blood Count 18.1 X10*3/uL (4.8-10.8)
[2022-01-07 17:14] LABS: Alanine Aminotransferase 31 U/L (0-31); Albumin Level 3.8 g/dL (3.5-5.0); Alkaline Phosphatase 97 U/L (39-117); Anion Gap 12 (12-20); Aspartate Amino Transferase 64 U/L (5-31); Bilirubin Direct 0.7 mg/dL (0.0-0.5); Blood Urea Nitrogen 20 mg/dL (9-16); Calcium 9.6 mg/dL (8.4-10.2); Carbon Dioxide 31 mmol/L (22-29); Chloride 99 mmol/L (96-108); Creatinine Clr Calc Pharmacy 86.9; Estimated Glomerular Filt Rate > 60; Glucose Random 112 mg/dL (60-115); Potassium 4.1 mmol/L (3.3-5.1); Sodium 138 mmol/L (135-145); Total Protein 6.9 g/dL (6.5-8.0)
--- NOTE | 2022-01-07 17:41 | ED_ITS ---
HPI - Abdominal Pain General Chief Complaint: Abdominal Pain Stated Complaint: gallbladder pain, chest pain Time Seen by Provider: 01/07/22 17:29 Source: patient and family Mode of arrival: ambulatory Limitations: no limitations History of Present Illness HPI narrative: 76-year-old female with a history of COPD, congestive heart failure, obstructive sleep apnea here with reports of right-sided abdominal pain noticed since morning with nausea and vomiting. No diarrhea, fever, urinary symptoms. Pain radiates to the right chest. No worsening shortness of breath or cough Related Data Home Medications Medication Instructions Recorded Confirmed atorvastatin 20 mg tablet 20 mg PO DAILY 10/13/20 omeprazole 20 mg capsule,delayed 20 mg PO DAILY 10/13/20 release amlodipine 5 mg tablet 1 tab PO DAILY 10/19/20 10/19/20 Previous Rx's Medication Instructions Recorded apixaban 5 mg tablet (Eliquis) 5 mg PO BID #60 tab 11/03/20 bisacodyl 10 mg rectal suppository 10 mg MO DAILY PRN #30 ea 11/03/20 (Gentle Laxative (bisacodyl)) carvedilol 3.125 mg tablet 3.125 mg PO BID #30 tab 11/03/20 fluticasone furoate 100 1 puff INHALATION RDAILY #1 ea 11/03/20 mcg-vilanterol 25 mcg/dose inhalation powder (Breo Ellipta) furosemide 40 mg tablet 40 mg PO DAILY #30 tab 11/03/20 guaifenesin 600 mg tablet, 600 mg PO BID #20 tab 11/03/20 extended release 12 hr (Mucinex) ipratropium 0.5 mg-albuterol 3 mg 3 ml INHALATION QID 30 Days #270 ml 11/03/20 (2.5 mg base)/3 mL nebulization soln losartan 25 mg tablet 25 mg PO DAILY #30 tab 11/03/20 nystatin 100,000 unit/gram topical 1 appl TOPICAL BID #1 g 11/03/20 powder polyethylene glycol 3350 17 gram 17 g PO DAILY #30 ea 11/03/20 oral powder packet Allergies Allergy/AdvReac Type Severity Reaction Status Date / Time vancomycin Allergy Unknown itch, Verified 01/07/22 16:11 rash, hives Review of Systems Review of Systems Yes all other systems are reviewed and are negative Constitutional: Reports no additional constitutional complaints, Denies body ache(s), Denies chills, Denies fever(s), Denies headache(s) and Denies weakness Eyes: Reports no additional eye complaints and Denies change in vision Reports system reviewed and no additional complaints, except as documented, Denies dizziness, Denies headache(s), Denies nasal congestion, Denies nasal discharge and Denies neck pain Cardiovascular: Reports no additional cardiovascular complaints, Denies chest pain, Denies leg edema and Denies dyspnea Respiratory: Reports no additional respiratory complaints, Denies cough and Denies dyspnea Gastrointestinal: Reports no additional gastrointestinal complaints, Reports abdominal pain, Denies diarrhea, Reports nausea and Reports vomiting Genitourinary: Reports no additional female genitourinary complaints and Denies urinary incontinence Musculoskeletal: Reports no additional musculoskeletal complaints, Denies back pain, Denies arthralgias, Denies joint swelling, Denies neck pain, Denies numbness and Denies tingling Skin/Breast: Reports system reviewed and no additional complaints, except as docu and Denies rash Reports system reviewed and no additional complaints, except as documented, Denies dizziness, Denies headache(s), Denies numbness, Denies tingling and Denies weakness [facility] Past Medical History Attestation statement: The following information was validated with the patient. Source: old records reviewed and nursing notes reviewed Medical History Acute and chronic respiratory failure with hypercapnia Cor pulmonale, chronic Diastolic CHF with preserved left ventricular function, NYHA class 2 Emphysema lung Hyperkalemia Social History Social History Household Members: Unknown / Unable to assess Housing: Unknown / Unable to assess Unable to assess alcohol history related to: Unknown Alcohol intake: unknown Substance Use Type: Unknown Advance Directives: No Advance Directives Information Provided: No service: No Current occupational status: retired Physical Exam ED Vital Signs: Vital Signs - 24 hr 01/07/22 16:11 01/07/22 18:23 01/07/22 20:00 Temperature 97.8 F 97.8 F Pulse Rate 84 118 H Respiratory Rate 20 14 18 Blood Pressure 141/68 H 124/55 L Pulse Oximetry 92 92 BMI result Body Mass Index 41.5 Const General: cooperative, healthy appearing, comfortable and no acute distress Orientation/consciousness: patient oriented x3 Limitations: no limitations HENMT Head: Yes normal to inspection Ears: hearing grossly normal bilaterally and TM's normal bilaterally General nose exam: Normal external nose present Face and sinus: Yes normal facial exam Mouth: Normal oral and palatal mucosa present Teeth and gingiva: dentition normal Throat: Yes posterior oropharynx normal, Yes tonsils normal and Yes uvula midline Eyes General: appearance normal, both eyes and all related structures Pupils: Equal, round and reactive pupils present Neck Neck: Yes normal visual inspection, Yes full ROM, Yes no lymphadenopathy and Yes no meningeal signs Chest Chest palpation & inspection: normal inspection of the chest Resp Effort & Inspection: normal respiratory effort Auscultation: clear to auscultation bilaterally Cardio Rate: regular rate Rhythm: regular rhythm Peripheral pulses: Peripheral pulses 2+ throughout GI Inspection: Yes normal to inspection Palpation (GI): Soft to palpation and Tenderness to palpation present (GI) (diffuse R>L) General: Yes no CVA tenderness Back/Spine/Pelvis Back: no CVA tenderness Thoracic/Lumbar Spine: thoracic and lumbar spine normal to inspection Skin General skin exam: no rashes or lesions noted Neuro General: patient oriented x3, moves all extremities and no meningeal signs Cranial nerves: Yes Equal, round and reactive pupils present Cognition (Neuro): normal cognition Extrem General: Yes normal to inspection, Yes no pedal edema and Yes no calf tenderness Course Course Course Narrative: 76 yo female here with diffuse AP R>L with vomiting since waking, has had similar symptoms in the past triggered by fatty foods but these normally resolve with time. WIll check labs, UA, CT 2014-labs show leukocytosis. CTs consistent with pancreatitis. Patient also has gallstones noted on CT. Consider acute cholecystitis. Will admit patient so she may have additional imaging, treatment of the pancreatitis. At this time infection is suspected. Antibiotics ordered. Will discuss with Medicine for admission 2039-Discussed the case with Dr Cha who accepted admission. MDM - Abdominal Pain Medical Records Attestation: I reviewed the patient's medical records. Lab Data Attestation: I reviewed the patient's lab results. Result diagrams: 01/07/22 16:28 01/07/22 16:28 Labs: Lab Results 01/07/22 01/07/22 01/07/22 Range/Units 16:28 16:28 17:57 WBC 18.1 H (4.8-10.8) X10*3/uL RBC 4.70 (4.20-5.50) X10*6/uL Hgb 14.2 (12.0-16.0) g/dl Hct 44.3 (37.0-47.0) % MCV 94.3 (80.0-98.0) fL MCH 30.2 (27.0-33.0) pg MCHC 32.1 (31.0-35.0) g/dl RDW 13.4 (11.0-16.0) % Plt Count 267 (160-400) X10*3/uL MPV 10.3 (9.4-12.3) fL Immature Gran % (Auto) 0.5 H (0.0-0.4) % Neut % (Auto) 84.9 H (45-73) % Lymph % (Auto) 8.5 L (20-40) % [place] % (Auto) 5.5 (2-11) % Eos % (Auto) 0.4 (0-4) % Baso % (Auto) 0.2 (0-2) % Lymph # (Auto) 1.5 (1.2-4.9) X10*3/uL [place] # (Auto) 1.0 (0.1-1.2) X10*3/uL Eos # (Auto) 0.1 (0.0-0.4) X10*3/uL Baso # (Auto) 0.0 (0.0-0.2) X10*3/uL Abs Immat Gran (auto) 0.09 H (0.00-0.03) X10*3/uL Absolute Neuts (auto) 15.3 H (2.0-8.3) x10*3/uL Absolute Nucleated RBC 0.000 (0.0-0.012) X10*3/uL Nucleated RBC % (auto) 0.0 (0.0-0.2) /100WBC Sodium 138 (135-145) mmol/L Potassium 4.1 (3.3-5.1) mmol/L Chloride 99 (96-108) mmol/L Carbon Dioxide 31 H (22-29) mmol/L Anion Gap 12 (12-20) BUN 20 H (9-16) mg/dL Creatinine 0.67 (0.5-1.4) mg/dL Estim Creat Clear Calc 86.9 Estimated GFR > 60 Random Glucose 112 (60-115) mg/dL Lactic Acid (0.5-2.0) mmol/L Calcium 9.6 (8.4-10.2) mg/dL Total Bilirubin 1.0 (0.0-1.0) mg/dL Direct Bilirubin 0.7 H (0.0-0.5) mg/dL AST 64 H (5-31) U/L ALT 31 (0-31) U/L Alkaline Phosphatase 97 D (39-117) U/L Troponin I High Sens (<3.5-17.0) ng/L Total Protein 6.9 D (6.5-8.0) g/dL Albumin 3.8 (3.5-5.0) g/dL Lipase 3584 H (8-78) U/L Urine Color YELLOW Urine Appearance HAZY Urine pH 7.0 (5.0-8.0) Ur Specific [place] 1.015 (1.005-1.025) Urine Protein NEG (NEG-TRACE) MG/DL Urine Glucose (UA) NEG (NEG) MG/DL Urine Ketones NEG (NEG) MG/DL Urine Blood NEG (NEG) Urine Nitrite NEG (NEG) Ur Leukocyte Esterase NEG (NEG) 01/07/22 01/07/22 Range/Units 18:12 18:12 WBC (4.8-10.8) X10*3/uL RBC (4.20-5.50) X10*6/uL Hgb (12.0-16.0) g/dl Hct (37.0-47.0) % MCV (80.0-98.0) fL MCH (27.0-33.0) pg MCHC (31.0-35.0) g/dl RDW (11.0-16.0) % Plt Count (160-400) X10*3/uL MPV (9.4-12.3) fL Immature Gran % (Auto) (0.0-0.4) % Neut % (Auto) (45-73) % Lymph % (Auto) (20-40) % [place] % (Auto) (2-11) % Eos % (Auto) (0-4) % Baso % (Auto) (0-2) % Lymph # (Auto) (1.2-4.9) X10*3/uL [place] # (Auto) (0.1-1.2) X10*3/uL Eos # (Auto) (0.0-0.4) X10*3/uL Baso # (Auto) (0.0-0.2) X10*3/uL Abs Immat Gran (auto) (0.00-0.03) X10*3/uL Absolute Neuts (auto) (2.0-8.3) x10*3/uL Absolute Nucleated RBC (0.0-0.012) X10*3/uL Nucleated RBC % (auto) (0.0-0.2) /100WBC Sodium (135-145) mmol/L Potassium (3.3-5.1) mmol/L Chloride (96-108) mmol/L Carbon Dioxide (22-29) mmol/L Anion Gap (12-20) BUN (9-16) mg/dL Creatinine (0.5-1.4) mg/dL Estim Creat Clear Calc Estimated GFR Random Glucose (60-115) mg/dL Lactic Acid 1.8 (0.5-2.0) mmol/L Calcium (8.4-10.2) mg/dL Total Bilirubin (0.0-1.0) mg/dL Direct Bilirubin (0.0-0.5) mg/dL AST (5-31) U/L ALT (0-31) U/L Alkaline Phosphatase (39-117) U/L Troponin I High Sens 6.8 (<3.5-17.0) ng/L Total Protein (6.5-8.0) g/dL Albumin (3.5-5.0) g/dL Lipase (8-78) U/L Urine Color Urine Appearance Urine pH (5.0-8.0) Ur Specific [place] (1.005-1.025) Urine Protein (NEG-TRACE) MG/DL Urine Glucose (UA) (NEG) MG/DL Urine Ketones (NEG) MG/DL Urine Blood (NEG) Urine Nitrite (NEG) Ur Leukocyte Esterase (NEG) Imaging Data CT scan - abdomen: Attestation: I personally reviewed and interpreted this imaging study as follows: Radiologist's impression: IMPRESSION: Hazy attenuation of the peripancreatic fat in the region of the pancreatic head. Correlate with serum amylase for possibility of pancreatitis. There is a 2.9 cm simple appearing cyst/pseudocyst of the posterior aspect of the pancreatic head. There is also an adjacent duodenal diverticulum. Multiple gallstones are noted. No intrahepatic biliary ductal dilatation. ? Marked descending and sigmoid colon diverticulosis.? ? Fleischner guidelines were followed. ECG Data Attestation: I personally reviewed and interpreted this ECG as follows: ECG interpretation date: 01/07/22 ECG interpretation time: 16:52 Interpretation: Normal sinus rhythm with a rate 81, normal MO, normal QRS, normal QT Discharge Plan Discharge Clinical Impression: Pancreatitis, Gallstone, Leukocytosis Patient Disposition: Admitted As Inpatient
[2022-01-07 17:55] LABS: Lipase 3584 U/L (8-78)
[2022-01-07 18:22] LABS: Appearance Urine HAZY; Color Urine YELLOW; Glucose Urine UA NEG (NEG); Leukocyte Esterase Urine NEG (NEG); Nitrite Urine NEG (NEG); Specific Gravity - Urine 1.015 (1.005-1.025); Urine Blood NEG (NEG); Urine Ketones NEG (NEG); Urine Protein NEG (NEG-TRACE)
[2022-01-07 18:23] VITALS: RESP 14
[2022-01-07] MEDS: Morphine Sulfate 4 MG/ML CARTRIDGE IVPUSH ×3 (18:23→23:47)
[2022-01-07] MEDS: ondansetron HCL 4 MG/2 ML VIAL IVPUSH ×2 (18:28→23:47)
[2022-01-07 18:33] LABS: Lactic Acid 1.8 mmol/L (0.5-2.0)
[2022-01-07 18:38] LABS: Troponin-I High Sensitivity 6.8 ng/L (<3.5-17.0)
--- NOTE | 2022-01-07 19:07 | PC.NURSE ---
Patient is in bed, pt prefers to lay on her left side d/t abdominal and back pain. Pt reports pain is much better since receiving Morphine IV-01/23 at present. Pt denies nausea. Pt ambulates with assistance
[2022-01-07] MEDS: iohexoL 350 MG/ML 100 ML INFUS..BTL IV (19:21)
[2022-01-07 20:00] VITALS: BP 124/55; PULSE 118; RESP 18; TEMP 36.6; O2SAT 92
[2022-01-07] MEDS: Piperacillin Sodium/Tazobactam 3.375 GM in 0.9 % Sodium Chloride 50 ML IV (20:46)
[2022-01-07 20:47] LABS: Triglycerides 155 mg/dL
[2022-01-07 20:57] LABS: COVID-19 Test Negative (Negative)
[2022-01-07 21:01] VITALS: RESP 15
--- NOTE | 2022-01-07 21:02 | PHA.MEDREC ---
Pharmacy Consult ? Medication Reconciliation Pharmacy has completed the medication reconciliation. Spoke with patient and daughter in ED. Pt took all AM medications. List was provided by daughter.
--- NOTE | 2022-01-07 22:31 | MHC.CM.PN ---
CM met with admitted patient with bed assignment pending. IMM 01/07. HCP on file. HCP/daughter Bethany Millan ([phone]). [facility]. Fully vaccinated with Moderna. Not boosted. Uses a cane and nebulizer. No services. Daughters live with her and help when needed. D/C plan: Home without services. Pt to arrange transportation home.
--- NOTE | 2022-01-07 22:48 | P.HPHOSP_ITS ---
History of Present Illness Date of Service: 01/07/22 Chief Complaint: abd pain This is a 76-year-old female with past medical history of acute on chronic respiratory failure with hypercapnia, COPD, diastolic heart failure, hypertension, who presents to the hospital with complaints of epigastric and right upper quadrant abdominal pain. Patient reports that for the past 2 weeks this pain has been on and off mostly in the right upper quadrant. Today she woke up with severe pain, 10/10, localized to the epigastric and right upper quadrant, associated with low appetite, worse with oral intake, sharp, constant, relieved by pain medication received in the ED. she is nauseous but has no vomiting. Patient otherwise denies any chest pain, no shortness of breath, no cough, no diarrhea and has been feeling constipated, no urinary symptoms and no lower extremity edema. No numbness tingling or weakness. On arrival to the ED patient hemodynamically stable with no significant abnormal vitals Labs are significant for WBC count of 18.1, AST of 64, lipase of 3584, UA negative, abdominal CT shows acute pancreatitis as well as 2.9 cm simple appearing cyst pseudocyst of the posterior aspect of the pancreatic it. Is also adjacent duodenal diverticulum. Multiple gallstones are noted. Abdominal ultrasound was limited due to patient body habitus but there is cholelithiasis and sludge with a positive Valencia suggestive of acute cholecystitis. There is mild nonspecific dilatation of the CBD I Anticipate a medically necessary 2 night admission to the hospital for management of acute pancreatitis and as well as evaluation of cholecystitis and close monitoring Review of Systems Review of Systems: Yes all other systems are reviewed and are negative [facility] Medical History Acute and chronic respiratory failure with hypercapnia Cor pulmonale, chronic Diastolic CHF with preserved left ventricular function, NYHA class 2 Emphysema lung Hyperkalemia Social History Household Members: Unknown / Unable to assess Housing: Unknown / Unable to assess Unable to assess alcohol history related to: Unknown Alcohol intake: unknown Substance Use Type: Unknown Advance Directives: No Advance Directives Information Provided: No service: No Current occupational status: retired Meds Allergies Allergy/AdvReac Type Severity Reaction Status Date / Time vancomycin Allergy Unknown itch, Verified 01/07/22 16:11 rash, hives Active Medications: Current Medications Pharmacy Consult (Consult Rx Perform Med Rec) 1 each MISCELLANE ONCE PRN PRN Reason: Consult order Home Medications Medication Instructions Recorded Confirmed Last Taken Type atorvastatin 20 mg tablet 20 mg PO BEDTIME 10/13/20 01/07/22 01/06/22 History omeprazole 20 mg capsule,delayed 20 mg PO DAILY@0630 10/13/20 01/07/22 01/07/22 History release amlodipine 5 mg tablet 1 tab PO DAILY 10/19/20 01/07/22 01/07/22 History albuterol sulfate 1 vial INHALATION BID PRN 01/07/22 01/07/22 01/07/22 History albuterol sulfate 90 mcg/actuation 2 puff INHALATION QID PRN 01/07/22 01/07/22 01/07/22 History aerosol inhaler calcium carbonate 600 mg-vitamin 1 tab PO BID 01/07/22 01/07/22 01/07/22 History D3 5 mcg (200 unit) tablet docusate sodium 100 mg capsule 100 mg PO BID 01/07/22 01/07/22 01/07/22 History hydrochlorothiazide 25 mg tablet 1 tab PO DAILY 01/07/22 01/07/22 01/07/22 History lutein 6 mg capsule 6 mg PO DAILY 01/07/22 01/07/22 01/07/22 History metoprolol tartrate 25 mg tablet 0.5 tab PO BID 01/07/22 01/07/22 01/07/22 History omega 5-fxg-eue-fish oil 1,000 mg 1 cap PO DAILY 01/07/22 01/07/22 01/07/22 History (120 mg-180 mg) capsule (Fish Oil) vitamin B complex 1 cap PO DAILY 01/07/22 01/07/22 01/07/22 History vitamin E 400 unit capsule 400 unit PO DAILY 01/07/22 01/07/22 01/07/22 History Physical Exam Vital Signs and Narrative: Vital Signs: Last Vital Signs Temp 97.8 F 01/07/22 20:00 Pulse 118 H 01/07/22 20:00 Resp 15 01/07/22 21:01 BP 124/55 L 01/07/22 20:00 Pulse Ox 92 01/07/22 20:00 BMI result Body Mass Index 41.5 Const: General: cooperative and no acute distress Orientation/consciousnes s: patient oriented x3 Eyes: General: appearance normal, both eyes and all related structures Resp: Effort & Inspection: normal respiratory effort Auscultation: clear to auscultation bilaterally Cardio: Rate: regular rate Rhythm: regular rhythm GI: Other: Epigastric tenderness on palpation, no rebound or guarding, right upper quadrant tenderness with rebound as well as guarding Palpation (GI): Soft to palpation Auscultation: normal bowel sounds Skin: General skin exam: no rashes or lesions noted Neuro: General: patient oriented x3 Cognition (Neuro): normal cognition Extrem: General: Yes normal to inspection and Yes no pedal edema Results Labs CBC and Chem 7: 01/07/22 16:28 01/07/22 16:28 Labs: Laboratory Results - last 24 hr 01/07/22 01/07/22 01/07/22 16:28 16:28 17:57 MCV 94.3 MCH 30.2 MCHC 32.1 RDW 13.4 Plt Count 267 MPV 10.3 Immature Gran % (Auto) 0.5 H Neut % (Auto) 84.9 H Lymph % (Auto) 8.5 L [place] % (Auto) 5.5 Eos % (Auto) 0.4 Baso % (Auto) 0.2 Lymph # (Auto) 1.5 [place] # (Auto) 1.0 Eos # (Auto) 0.1 Baso # (Auto) 0.0 Abs Immat Gran (auto) 0.09 H Absolute Neuts (auto) 15.3 H Absolute Nucleated RBC 0.000 Nucleated RBC % (auto) 0.0 Anion Gap 12 Estim Creat Clear Calc 86.9 Estimated GFR > 60 Random Glucose 112 Lactic Acid Calcium 9.6 Total Bilirubin 1.0 Direct Bilirubin 0.7 H AST 64 H ALT 31 Alkaline Phosphatase 97 D Total Protein 6.9 D Albumin 3.8 Triglycerides 155 Lipase 3584 H Urine Color YELLOW Urine Appearance HAZY Urine pH 7.0 Ur Specific [place] 1.015 Urine Protein NEG Urine Glucose (UA) NEG Urine Ketones NEG Urine Blood NEG Urine Nitrite NEG Ur Leukocyte Esterase NEG COVID-19 (DONTE) COVID-19 Clin Com 01/07/22 01/07/22 18:12 20:34 MCV MCH MCHC RDW Plt Count MPV Immature Gran % (Auto) Neut % (Auto) Lymph % (Auto) [place] % (Auto) Eos % (Auto) Baso % (Auto) Lymph # (Auto) [place] # (Auto) Eos # (Auto) Baso # (Auto) Abs Immat Gran (auto) Absolute Neuts (auto) Absolute Nucleated RBC Nucleated RBC % (auto) Anion Gap Estim Creat Clear Calc Estimated GFR Random Glucose Lactic Acid 1.8 Calcium Total Bilirubin Direct Bilirubin AST ALT Alkaline Phosphatase Total Protein Albumin Triglycerides Lipase Urine Color Urine Appearance Urine pH Ur Specific [place] Urine Protein Urine Glucose (UA) Urine Ketones Urine Blood Urine Nitrite Ur Leukocyte Esterase COVID-19 (DONTE) Negative COVID-19 Clin Com See Note Imaging Radiologist's Impressions: Impressions Abdomen/Pelvis CT 01/07/22 19:29 IMPRESSION: Hazy attenuation of the peripancreatic fat in the region of the pancreatic head. Correlate with serum amylase for possibility of pancreatitis. There is a 2.9 cm simple appearing cyst/pseudocyst of the posterior aspect of the pancreatic head. There is also an adjacent duodenal diverticulum. Multiple gallstones are noted. No intrahepatic biliary ductal dilatation. Marked descending and sigmoid colon diverticulosis. Fleischner guidelines were followed. Assessment and Plan (1) Pancreatitis: Status: Acute (2) Gallstone: Status: Acute (3) Cholecystitis: Status: Acute (4) Dilated cbd, acquired: Status: Acute Plan This is a 76-year-old female with past medical history of CHF, hypertension, as well as COPD who presents to the hospital with complaints of abdominal pain found to have acute pancreatitis # acute pancreatitis - likely secondary to gallstone pancreatitis - has evidence of CBD dilatation on ultrasound - elevated lipase - will keep NPO, aggressive IV hydration - will consult GI for possible MRCP # cholecystitis - has right upper quadrant abdominal pain, Valencia sign positive on ultrasound - has leukocytosis, afebrile - will treat with IV antibiotics - consult general surgery - follow cultures # COPD - no exacerbation - continue home inhalers # CHF - not in volume overload - continue metoprolol and monitor for volume overload as patient is being treated with aggressive IV fluids # hypertension - BP on the soft side - will hold antihypertensives DVT prophylaxis: Lovenox Quality Stroke Does the patient have a stroke diagnosis?: No VTE Prior VTE?: No VTE Risk Level:: Medical - moderate - high VTE Device Contraindication: Treatment Not Indicated VTE Drug Contraindication: N/A - Med Ordered
[2022-01-07] MEDS: 0.9 % Sodium Chloride Flush 3 ML SYRINGE IVFLUSH (23:46)
[2022-01-07] MEDS: Lactated Ringers 1,000 ML 200 ML IVCONT (23:48)
[2022-01-08] VITALS (9 sets, daily range): BP systolic 101–133; BP diastolic 41–62; PULSE 87–98; RESP 14–20; TEMP 36.7–38; O2SAT 92–95
[2022-01-08] MEDS: Enoxaparin Sodium 40 MG/0.4 ML SYRINGE SUBCUT ×2 (01:10→21:14)
--- NOTE | 2022-01-08 02:27 | PC.NURSE ---
Pt sleeping, chest rise and fall observed, call l
[2022-01-08] MEDS: Morphine Sulfate 4 MG/ML CARTRIDGE IVPUSH ×4 (04:10→19:25)
--- NOTE | 2022-01-08 05:59 | PC.NURSE ---
Pt sleeping, chest rise and fall observed, call light in reach, this RN continues to monitor.
[2022-01-08] MEDS: cefTRIAXone sodium 1 GM in 0.9 % Sodium Chloride 50 ML IV (06:04)
[2022-01-08] MEDS: metroNIDAZOLE 500 MG TABLET PO ×3 (06:04→21:14)
[2022-01-08] MEDS: Omeprazole 20 MG CAPSULE.DR PO (06:12)
[2022-01-08 06:31] LABS: MANUAL DIFF FLAG NO
[2022-01-08 06:41] LABS: Basophils Percent Auto 0.2 % (0-2); Eosinophils Absolute Auto 0.1 X10*3/uL (0.0-0.4); Eosinophils Percent Auto 0.4 % (0-4); Hematocrit 43.4 % (37.0-47.0); Hemoglobin 13.5 g/dl (12.0-16.0); Imm Gran Abs Auto 0.07 X10*3/uL (0.00-0.03); Imm Gran Pct Auto 0.5 % (0.0-0.4); Lymphocytes Absolute Auto 1.2 X10*3/uL (1.2-4.9); Lymphocytes Percent Auto 8.7 % (20-40); Mean Corpuscular HGB Conc 31.1 g/dl (31.0-35.0); Mean Corpuscular Hemoglobin 30.1 pg (27.0-33.0); Mean Corpuscular Volume 96.9 fL (80.0-98.0); Mean Platelet Volume 10.5 fL (9.4-12.3); Monocytes Absolute Auto 1.4 X10*3/uL (0.1-1.2); Monocytes Percent Auto 10.1 % (2-11); Neutrophils Absolute Auto 11.1 x10*3/uL (2.0-8.3); Neutrophils Percent Auto 80.1 % (45-73); Platelet Count 212 X10*3/uL (160-400); Red Blood Count 4.48 X10*6/uL (4.20-5.50); Red Cell Distribution Width 13.5 % (11.0-16.0); White Blood Count 13.8 X10*3/uL (4.8-10.8)
[2022-01-08 06:50] LABS: Anion Gap 16 (12-20); Blood Urea Nitrogen 21 mg/dL (9-16); Calcium 9.1 mg/dL (8.4-10.2); Carbon Dioxide 27 mmol/L (22-29); Chloride 98 mmol/L (96-108); Creatinine Clr Calc Pharmacy 84.3; Estimated Glomerular Filt Rate > 60; Glucose Random 74 mg/dL (60-115); Potassium 4.7 mmol/L (3.3-5.1); Sodium 136 mmol/L (135-145)
--- NOTE | 2022-01-08 08:38 | PC.NURSE ---
this business writer assumed care of this pt at 0700. pt alert and oriented, denies pain. pt resting quietly, no complaints. Report given to CEDRIC Alves, pt will be transferred to room 350 by ed overflow tech. pt is aware of the plan.
[2022-01-08] MEDS: Lactated Ringers 1,000 ML 125 ML IVCONT ×2 (09:07→17:27)
--- NOTE | 2022-01-08 09:41 | P.CONGS_ITS ---
History of Present Illness Consult details Consult date: 01/08/22 Reason for consult: abdominal pain Requesting physician: Madison Segura Narrative: 76-year-old female patient with multiple medical problems including respiratory failure with hypercapnia, COPD, diastolic heart failure, hypertension presenting with complaints of abdominal pain in the epigastrium and right upper quadrant. She reports the initial onset of this abdominal pain in 1975 prior to the of her 1st child. She has had several episodes since then which have gradually increased in severity. She has a known history of gallstones. She reports waking up today with severe sharp pain in the epigastrium and right upper quadrant, 10/10 in severity. The pain was associated with nausea without vomiting. As the pain did not improve she subsequently presented to the emergency department for further evaluation. In the emergency department she was noted to have a WBC of 18.1 and a lipase of 3584. CT of the abdomen and pelvis revealed evidence of acute pancreatitis with a pseudocyst at the head of the pancreas as well as a duodenal diverticulum, gallstones within the gallbladder. Findings are suggestive of gallstone pancreatitis. She is admitted to the hospitalist service and surgical consultation was requested for management of the cholelithiasis. Review of Systems Constitutional: Constitutional: Denies chills, Denies fever(s), Denies hea dache(s) and Reports poor appetite ENT: Denies dizziness and Denies headache(s) Cardiovascular: Cardiovascular: Denies chest pain, Denies rapid heart rate, Denies palpitations, Reports dyspnea, Reports dyspnea on exertion and Denies slow heart rate Respiratory: Respiratory: Denies chest congestion, Denies cough, Denies pain on inspiration, Reports dyspnea, Reports dyspnea on exertion and Denies wheezing Comments: Patient on nasal O2 Gastrointestinal: Gastrointestinal: Reports as per HPI, Reports abdominal pain, Reports bloating, Denies change in stool character, Denies constipation, Denies diarrhea, Reports nausea, Denies vomiting and Denies hematemesis Musculoskeletal: Musculoskeletal: Reports back pain, Denies arthralgias, Denies joint swelling and Denies numbness Integumentary/Breasts: Skin/Breast: Denies change in pigmentation, Denies erythema and Denies rash Neurologic: Denies dizziness, Denies headache(s) and Denies numbness Psychiatric: Psychiatric: Denies anxiety and Denies depression Endocrine: Endocrine: Denies palpitations Hematologic/Lymphatic: Hematologic/Lymphatic: Denies easy bleeding, Denies easy bruising and Denies lymphadenopathy Allergic/Immunologic: Allergic/Immunologic: Denies wheezing [facility] Past Medical History Medical History Acute and chronic respiratory failure with hypercapnia Cor pulmonale, chronic Diastolic CHF with preserved left ventricular function, NYHA class 2 Emphysema lung Hyperkalemia Social History Social History Household Members: Children Housing: House Do you presently have visiting nurse or other home services: No Unable to assess alcohol history related to: Unknown Alcohol intake: unknown Patient Tobacco Use Status: Former Tobacco user Tobacco use type: Cigarette Substance Use Type: Unknown service: No Current occupational status: retired [employer] Allergies Allergy/AdvReac Type Severity Reaction Status Date / Time vancomycin Allergy Unknown itch, Verified 01/07/22 16:11 rash, hives Active Medications: Current Medications Acetaminophen (Acetaminophen Supp 650 Mg Supp.Rect) 650 mg NM Q6H PRN PRN Reason: Pain, Mild (Pain Scale 1-3) Albuterol Sulfate (Albuterol Sulfate 90 Mcg 8 Gm Inhaler) 2 puff INHALE QID PRN PRN Reason: Shortness Of Breath Atorvastatin Calcium (Atorvastatin Calcium 20 Mg Tablet) 20 mg PO BEDTIME [facility] Docusate Sodium (Docusate Sodium 100 Mg Capsule) 100 mg PO BID [facility] Last Admin: 01/08/22 08:26 Dose: Not Given Documented by: Enoxaparin Sodium (Enoxaparin Sodium 40 Mg/0.4 Ml Syringe) 40 mg SUBCUT Q24H [facility] Last Admin: 01/08/22 01:10 Dose: 40 mg Documented by: Fluticasone/Vilanterol (Fluticasone/Vilanterol 100/25 Blst.W.Dev) 1 puff INHALE RDAILY [facility] Last Admin: 01/08/22 08:09 Dose: Not Given Documented by: Guaifenesin (Guaifenesin La 600 Mg Tab.Er.12h) 600 mg PO BID [facility] Last Admin: 01/08/22 08:27 Dose: Not Given Documented by: Lactated Ringer's (Lr) 1,000 mls @ 125 mls/hr IVCONT .Q8H [facility] Last Admin: 01/08/22 09:07 Dose: 125 mls/hr Documented by: Ceftriaxone Sodium 1 gm/ (Sodium Chloride) 50 mls @ 100 mls/hr IV Q24H [facility] Last Infusion: 01/08/22 08:26 Dose: Infused Documented by: Metoprolol Tartrate (Metoprolol Tartrate 12.5 Mg Halftab) 12.5 mg PO BID [facility]; Protocol Last Admin: 01/08/22 08:27 Dose: Not Given Documented by: Metronidazole (Metronidazole 500 Mg Tablet) 500 mg PO Q8H [facility] Last Admin: 01/08/22 06:04 Dose: 500 mg Documented by: Morphine Sulfate (Morphine Sulfate 4 Mg/Ml Cartridge) 4 mg IVPUSH Q4H PRN; Protocol PRN Reason: Pain, Severe (Pain Scale 7-10) Last Admin: 01/08/22 04:10 Dose: 4 mg Documented by: Omeprazole (Omeprazole 20 Mg Capsule.Dr) 20 mg PO DAILY@0630 [facility] Last Admin: 01/08/22 06:12 Dose: 20 mg Documented by: Ondansetron HCl (Ondansetron Hcl 4 Mg/2 Ml Vial) 4 mg IVPUSH Q8H PRN PRN Reason: Nausea and Vomiting Last Admin: 01/07/22 23:47 Dose: 4 mg Documented by: Pharmacy Consult (Consult Rx Perform Med Rec) 1 each MISCELLANE ONCE PRN PRN Reason: Consult order Sodium Chloride (0.9 % Sodium Chloride Flush 3 Ml Syringe) [facility] Last Admin: 01/08/22 08:49 Dose: Not Given Documented by: Home Medications Medication Instructions Recorded Confirmed Last Taken Type atorvastatin 20 mg tablet 20 mg PO BEDTIME 10/13/20 01/07/22 01/06/22 History omeprazole 20 mg capsule,delayed 20 mg PO DAILY@0630 10/13/20 01/07/22 01/07/22 History release amlodipine 5 mg tablet 1 tab PO DAILY 10/19/20 01/07/22 01/07/22 History albuterol sulfate 1 vial INHALATION BID PRN 01/07/22 01/07/22 01/07/22 History albuterol sulfate 90 mcg/actuation 2 puff INHALATION QID PRN 01/07/22 01/07/22 01/07/22 History aerosol inhaler calcium carbonate 600 mg-vitamin 1 tab PO BID 01/07/22 01/07/22 01/07/22 History D3 5 mcg (200 unit) tablet docusate sodium 100 mg capsule 100 mg PO BID 01/07/22 01/07/22 01/07/22 History hydrochlorothiazide 25 mg tablet 1 tab PO DAILY 01/07/22 01/07/22 01/07/22 History lutein 6 mg capsule 6 mg PO DAILY 01/07/22 01/07/22 01/07/22 History metoprolol tartrate 25 mg tablet 0.5 tab PO BID 01/07/22 01/07/22 01/07/22 History omega 0-jpv-sfc-fish oil 1,000 mg 1 cap PO DAILY 01/07/22 01/07/22 01/07/22 History (120 mg-180 mg) capsule (Fish Oil) vitamin B complex 1 cap PO DAILY 01/07/22 01/07/22 01/07/22 History vitamin E 400 unit capsule 400 unit PO DAILY 01/07/22 01/07/22 01/07/22 History Physical Exam Vital Signs: Vital Signs: Last Vital Signs Temp 99.8 F 01/08/22 08:59 Pulse 95 01/08/22 08:59 Resp 20 01/08/22 08:59 BP 130/62 01/08/22 08:59 Pulse Ox 92 01/08/22 08:59 BMI result Body Mass Index 41.5 Const: General: cooperative and well developed Nutritional Appearance: obese Orientation/consciousness: patient oriented x3 HEENT: Head: Yes normocephalic and Yes atraumatic Eyes: Sclerae: sclerae normal EOM: EOMs intact bilaterally Neck: Neck: Yes normal visual inspection Resp: Effort & Inspection: normal respiratory effort, no cough, no stridor and tachypneic Cardio: Jugular venous distension: no JVD Rate: regular rate Rhythm: regular rhythm Heart sounds: S1 normal heart sound present and S2 normal heart sound present GI: Inspection: Yes normal to inspection Palpation (GI): Soft to palpation, Tenderness to palpation present (GI) in the LUQ and periumbilically; Negative for not in the RLQ and Valencia's sign negative, no guarding and not rigid Percussion: Yes normal to percussion Auscultation: normal bowel sounds Rectal Exam - Female: deferred Skin: General skin exam: dry skin Rashes: no rashes Neuro: General: patient oriented x3 and no focal motor deficits Extrem: General: Yes full ROM and Yes no clubbing, cyanosis or edema Psych: Appearance: grossly normal Results Labs Result diagrams: 01/08/22 06:02 01/08/22 06:02 Labs: Abnormal lab results 01/07/22 01/07/22 01/08/22 Range/Units 16:28 16:28 06:02 WBC 18.1 H 13.8 H (4.8-10.8) X10*3/uL Immature Gran % (Auto) 0.5 H 0.5 H (0.0-0.4) % Neut % (Auto) 84.9 H 80.1 H (45-73) % Lymph % (Auto) 8.5 L 8.7 L (20-40) % [place] # (Auto) 1.4 H (0.1-1.2) X10*3/uL Abs Immat Gran (auto) 0.09 H 0.07 H (0.00-0.03) X10*3/uL Absolute Neuts (auto) 15.3 H 11.1 H (2.0-8.3) x10*3/uL Carbon Dioxide 31 H (22-29) mmol/L BUN 20 H (9-16) mg/dL Direct Bilirubin 0.7 H (0.0-0.5) mg/dL AST 64 H (5-31) U/L Lipase 3584 H (8-78) U/L 01/08/22 Range/Units 06:02 WBC (4.8-10.8) X10*3/uL Immature Gran % (Auto) (0.0-0.4) % Neut % (Auto) (45-73) % Lymph % (Auto) (20-40) % [place] # (Auto) (0.1-1.2) X10*3/uL Abs Immat Gran (auto) (0.00-0.03) X10*3/uL Absolute Neuts (auto) (2.0-8.3) x10*3/uL Carbon Dioxide (22-29) mmol/L BUN 21 H (9-16) mg/dL Direct Bilirubin (0.0-0.5) mg/dL AST (5-31) U/L Lipase (8-78) U/L Short CBC 01/07/22 01/08/22 Range/Units 16:28 06:02 WBC 18.1 H 13.8 H (4.8-10.8) X10*3/uL Hgb 14.2 13.5 (12.0-16.0) g/dl Hct 44.3 43.4 (37.0-47.0) % Plt Count 267 212 (160-400) X10*3/uL BMP 01/07/22 01/08/22 16:28 06:02 Sodium 138 136 Potassium 4.1 4.7 Chloride 99 98 Carbon Dioxide 31 H 27 BUN 20 H 21 H Creatinine 0.67 0.69 Calcium 9.6 9.1 Liver Function 01/07/22 Range/Units 16:28 Total Bilirubin 1.0 (0.0-1.0) mg/dL Direct Bilirubin 0.7 H (0.0-0.5) mg/dL AST 64 H (5-31) U/L ALT 31 (0-31) U/L Alkaline Phosphatase 97 D (39-117) U/L Albumin 3.8 (3.5-5.0) g/dL Urine 01/07/22 Range/Units 17:57 Urine Color YELLOW Urine Appearance HAZY Urine pH 7.0 (5.0-8.0) Ur Specific [place] 1.015 (1.005-1.025) Urine Protein NEG (NEG-TRACE) MG/DL Urine Glucose (UA) NEG (NEG) MG/DL All other labs normal. Assessment and Plan (1) Pancreatitis: Status: Acute (2) Gallstone: Status: Acute (3) Dilated cbd, acquired: Status: Acute Plan 76-year-old female patient with multiple medical problems found to have pancreatitis and gallstones. CT shows a pancreatic pseudocyst as well as a duodenal diverticulum. Recommend MRCP to further evaluate for choledocholithiasis. Patient may be at high risk for general anesthesia given her cardiac and pulmonary comorbidities. Ideally laparoscopic or possible open cholecystectomy would be performed during this hospitalization. Will follow along with you. Procedures Date of Service Date of Service: 01/08/22
[2022-01-08 14:12] LABS: Alanine Aminotransferase 40 U/L (0-31); Albumin Level 3.5 g/dL (3.5-5.0); Alkaline Phosphatase 94 U/L (39-117); Aspartate Amino Transferase 65 U/L (5-31); Bilirubin Direct 0.2 mg/dL (0.0-0.5); Bilirubin Total 0.6 mg/dL (0.0-1.0); Lipase 497 U/L (8-78); Total Protein 6.6 g/dL (6.5-8.0)
--- NOTE | 2022-01-08 14:20 | P.PNIM_ITS ---
Subjective Subjective Date of Service: 01/08/22 Interval History: Seen and examined this morning Follow-up for gallstone pancreatitis Patient reports improvement in pain with morphine Had nausea earlier, resolved at this time, no vomiting, no diarrhea Review of Systems Review of Systems: Yes all other systems are reviewed and are negative Constitutional Constitutional: Denies chills and Denies fever(s) Cardiovascular Cardiovascular: Denies chest pain, Denies palpitations and Denies dyspnea Respiratory Respiratory: Denies cough and Denies dyspnea Gastrointestinal Gastrointestinal: Reports abdominal pain, Reports nausea and Denies vomiting Endocrine Endocrine: Denies palpitations Physical Exam Vital Signs: Vital Signs: Last Vital Signs Temp 98.9 F 01/08/22 11:31 Pulse 93 01/08/22 11:31 Resp 18 01/08/22 11:31 BP 132/60 01/08/22 11:31 Pulse Ox 93 01/08/22 11:31 BMI result Body Mass Index 41.5 Const: General: cooperative, comfortable, alert and awake Nutritional Appearance: obese Orientation/consciousness: patient oriented x3 Resp: Effort & Inspection: normal respiratory effort and able to speak in complete sentences Auscultation: clear to auscultation bilaterally Cardio: Rate: regular rate Heart sounds: S1 normal heart sound present and S2 normal heart sound present GI: Inspection: No distended and Yes obesity Palpation (GI): Soft to palpation and nontender Neuro: General: patient oriented x3 Extrem: Other: trace pedal edema Objective Data Active Medications Acetaminophen (Acetaminophen Supp 650 Mg Supp.Rect) 650 mg MD Q6H PRN PRN Reason: Pain, Mild (Pain Scale 1-3) Albuterol Sulfate (Albuterol Sulfate 90 Mcg 8 Gm Inhaler) 2 puff INHALE QID PRN PRN Reason: Shortness Of Breath Atorvastatin Calcium (Atorvastatin Calcium 20 Mg Tablet) 20 mg PO BEDTIME [facility] Docusate Sodium (Docusate Sodium 100 Mg Capsule) 100 mg PO BID [facility] Last Admin: 01/08/22 08:26 Dose: Not Given Documented by: LESLIE Non-Admin Reason: NPO Enoxaparin Sodium (Enoxaparin Sodium 40 Mg/0.4 Ml Syringe) 40 mg SUBCUT Q24H [facility] Last Admin: 01/08/22 01:10 Dose: 40 mg Documented by: NAVYA Fluticasone/Vilanterol (Fluticasone/Vilanterol 100/25 Blst.W.Dev) 1 puff INHALE RDAILY [facility] Last Admin: 01/08/22 08:09 Dose: Not Given Documented by: CUATE Non-Admin Reason: Med Not Available Guaifenesin (Guaifenesin La 600 Mg Tab.Er.12h) 600 mg PO BID [facility] Last Admin: 01/08/22 08:27 Dose: Not Given Documented by: LESLIE Non-Admin Reason: NPO Lactated Ringer's (Lr) 1,000 mls @ 125 mls/hr IVCONT .Q8H [facility] Last Admin: 01/08/22 09:07 Dose: 125 mls/hr Documented by: AMILCAR Ceftriaxone Sodium 1 gm/ (Sodium Chloride) 50 mls @ 100 mls/hr IV Q24H [facility] Last Infusion: 01/08/22 08:26 Dose: 0 mls/hr Documented by: LESLIE Metoprolol Tartrate (Metoprolol Tartrate 12.5 Mg Halftab) 12.5 mg PO BID [facility]; Protocol Last Admin: 01/08/22 08:27 Dose: Not Given Documented by: LESLIE Non-Admin Reason: NPO Metronidazole (Metronidazole 500 Mg Tablet) 500 mg PO Q8H [facility] Last Admin: 01/08/22 13:29 Dose: 500 mg Documented by: AMILCAR Morphine Sulfate (Morphine Sulfate 4 Mg/Ml Cartridge) 4 mg IVPUSH Q4H PRN; Protocol PRN Reason: Pain, Severe (Pain Scale 7-10) Last Admin: 01/08/22 10:19 Dose: 4 mg Documented by: ROB Omeprazole (Omeprazole 20 Mg Capsule.Dr) 20 mg PO DAILY@0630 [facility] Last Admin: 01/08/22 06:12 Dose: 20 mg Documented by: NAVYA Ondansetron HCl (Ondansetron Hcl 4 Mg/2 Ml Vial) 4 mg IVPUSH Q8H PRN PRN Reason: Nausea and Vomiting Last Admin: 01/07/22 23:47 Dose: 4 mg Documented by: NAVYA Pharmacy Consult (Consult Rx Perform Med Rec) 1 each MISCELLANE ONCE PRN PRN Reason: Consult order Sodium Chloride (0.9 % Sodium Chloride Flush 3 Ml Syringe) 3 ml IVFLUSH QSHIFT [facility] Last Admin: 01/08/22 08:49 Dose: Not Given Documented by: LESLIE Non-Admin Reason: IV Running Labs CBC & Chem 7: 01/08/22 06:02 01/08/22 06:02 Labs: Laboratory Results - last 24 hr 01/07/22 01/07/22 01/07/22 16:28 16:28 17:57 MCV 94.3 MCH 30.2 MCHC 32.1 RDW 13.4 Plt Count 267 MPV 10.3 Immature Gran % (Auto) 0.5 H Neut % (Auto) 84.9 H Lymph % (Auto) 8.5 L [place] % (Auto) 5.5 Eos % (Auto) 0.4 Baso % (Auto) 0.2 Lymph # (Auto) 1.5 [place] # (Auto) 1.0 Eos # (Auto) 0.1 Baso # (Auto) 0.0 Abs Immat Gran (auto) 0.09 H Absolute Neuts (auto) 15.3 H Absolute Nucleated RBC 0.000 Nucleated RBC % (auto) 0.0 Anion Gap 12 Estim Creat Clear Calc 86.9 Estimated GFR > 60 Random Glucose 112 Lactic Acid Calcium 9.6 Total Bilirubin 1.0 Direct Bilirubin 0.7 H AST 64 H ALT 31 Alkaline Phosphatase 97 D Total Protein 6.9 D Albumin 3.8 Triglycerides 155 Lipase 3584 H Urine Color YELLOW Urine Appearance HAZY Urine pH 7.0 Ur Specific [place] 1.015 Urine Protein NEG Urine Glucose (UA) NEG Urine Ketones NEG Urine Blood NEG Urine Nitrite NEG Ur Leukocyte Esterase NEG COVID-19 (DONTE) COVID-19 Clin Com 01/07/22 01/07/22 01/08/22 18:12 20:34 06:02 MCV 96.9 MCH 30.1 MCHC 31.1 RDW 13.5 Plt Count 212 MPV 10.5 Immature Gran % (Auto) 0.5 H Neut % (Auto) 80.1 H Lymph % (Auto) 8.7 L [place] % (Auto) 10.1 Eos % (Auto) 0.4 Baso % (Auto) 0.2 Lymph # (Auto) 1.2 [place] # (Auto) 1.4 H Eos # (Auto) 0.1 Baso # (Auto) 0.0 Abs Immat Gran (auto) 0.07 H Absolute Neuts (auto) 11.1 H Absolute Nucleated RBC 0.000 Nucleated RBC % (auto) 0.0 Anion Gap Estim Creat Clear Calc Estimated GFR Random Glucose Lactic Acid 1.8 Calcium Total Bilirubin Direct Bilirubin AST ALT Alkaline Phosphatase Total Protein Albumin Triglycerides Lipase Urine Color Urine Appearance Urine pH Ur Specific [place] Urine Protein Urine Glucose (UA) Urine Ketones Urine Blood Urine Nitrite Ur Leukocyte Esterase COVID-19 (DONTE) Negative COVID-19 Clin Com See Note 01/08/22 06:02 MCV MCH MCHC RDW Plt Count MPV Immature Gran % (Auto) Neut % (Auto) Lymph % (Auto) [place] % (Auto) Eos % (Auto) Baso % (Auto) Lymph # (Auto) [place] # (Auto) Eos # (Auto) Baso # (Auto) Abs Immat Gran (auto) Absolute Neuts (auto) Absolute Nucleated RBC Nucleated RBC % (auto) Anion Gap 16 Estim Creat Clear Calc 84.3 Estimated GFR > 60 Random Glucose 74 Lactic Acid Calcium 9.1 Total Bilirubin 0.6 Direct Bilirubin 0.2 AST 65 H ALT 40 H Alkaline Phosphatase 94 Total Protein 6.6 Albumin 3.5 Triglycerides Lipase 497 H Urine Color Urine Appearance Urine pH Ur Specific [place] Urine Protein Urine Glucose (UA) Urine Ketones Urine Blood Urine Nitrite Ur Leukocyte Esterase COVID-19 (DONTE) COVID-19 Clin Com Assessment and Plan (1) Pancreatitis: Status: Acute Plan This is a 76-year-old female with past medical history of CHF, hypertension, as well as COPD who presents to the hospital with complaints of abdominal pain found to have acute pancreatitis acute gallstone pancreatitis CT showing Hazy attenuation of the peripancreatic fat in the region of the pancreatic head.?2.9 cm simple appearing cyst/pseudocyst of the posterior aspect of the pancreatic head Lipase trending down from 3584 to 497 - NPO, continue IVF - pain control - MRCP pending - GI consult pending - seen by surgery, likely will need CCY during this hospitalization - will continue abx until seen by GI COPD previously on supplemental oxygen, but pt denies at this time no exacerbation - continue home inhalers Chronic HFpEF euvolemic at this time. - continue metoprolol - monitor for volume overload as patient is being treated with IVF hypertension - continue metoprolol - HCTZ, norvasc on hold, resume as BP allows HLD -hold statin Morbid obesity BMI 41.6. Likely contributing to comorbidities h/o [id number] previously on AVAPS, but unable to tolerate h/o pulmonary embolism diagnosed in October 2020 no longer on anticoagulation DVT prophylaxis: Lovenox attending: dr. mccray Patient requires ongoing inpatient hospitalizations secondary to acute gallstone pancreatitis, IV pain control, probable ERCP and cholecystectomy Quality Stroke Does the patient have a stroke diagnosis?: No VTE Prior VTE?: No VTE Risk Level:: Medical - moderate - high VTE Device Contraindication: Treatment Not Indicated VTE Drug Contraindication: N/A - Med Ordered
[2022-01-08] MEDS: Acetaminophen 325 MG TABLET PO (16:42)
--- NOTE | 2022-01-08 18:09 | PM.EVENT ---
Event Note Date of Service: 01/08/22 Event Note: GI Consult-Full note dictated-Hx via patient and from EMR. Imp: Acute gallstone pancreatitis, cholelithiasis. Based on the imaging studies and labs there does not appear to be a component of choledocholithiasis at this time. Her pancreatitis seems to be resolving quickly as well. This seems very c/w a passed CBD stone. Rec: I do not think an ERCP is presently required. I would agree with Dr. Obregon that it would be reasonable to have her undergo a lap CCY during this admission so as to hopefully prevent future episodes of pancreatitis or other gallstone related complications. D/W patient in detail and she is comfortable with this plan. Please advise me if I can be of any further assistance. Thanks
[2022-01-08] MEDS: Docusate Sodium 100 MG CAPSULE PO (19:25)
[2022-01-08] MEDS: Metoprolol Tartrate 12.5 MG HALFTAB PO (19:25)
[2022-01-09] MEDS: Lactated Ringers 1,000 ML 125 ML IVCONT ×3 (00:43→16:20)
--- NOTE | 2022-01-09 02:51 | CONS_ITS ---
DATE OF SERVICE: 01/08/2022 REASON FOR CONSULTATION: Gallstone pancreatitis and dilated common bile duct on imaging studies. HISTORY OF PRESENT ILLNESS: This has been obtained from the patient and the medical record. Patient is a 76-year-old female, who describes an episode of right upper quadrant and epigastric pain about 1 week ago that lasted for approximately 6 hours. This was not associated with any jaundice, nor vomiting. Once that resolved, she was feeling well up until yesterday when she developed recurrent pain that persisted and also radiated to her back. Again, this was not associated with any vomiting or jaundice. She came to the ER for evaluation and was found to have pancreatitis and gallstones. She subsequently has been admitted. Prior to the past week or so, she denies any chronic GI complaints. She tends to enjoy good appetite without any significant heartburn, nor dysphagia. Her bowel movements have been regular without any hematochezia, nor melena. She denies any previous history of ulcer disease, liver disease, nor pancreas problems. Since admission here, she has been feeling better. She has been seen by Dr. Obregon from Surgery as well. She has been afebrile other than a temperature 100.4 this afternoon. MEDICATIONS: At home included albuterol, amlodipine, atorvastatin, calcium, Colace, Breo, hydrochlorothiazide, metoprolol, fish oil, omeprazole, vitamins. Her medications here in the hospital include acetaminophen, albuterol, IV ceftriaxone, Colace, Lovenox, morphine p.r.n., omeprazole, Zofran p.r.n. PAST MEDICAL HISTORY: Right knee replacement about 10 years ago that had to be removed and then with a followup replacement due to infection. She has significant lung disease in relation to previous smoking and has also had a pulmonary embolus. She does wear oxygen at home. She also has history of CHF and hypertension. History of cor pulmonale reported in the chart. History of reflux. She denies any history of [place], nor stroke. She denies any history of diabetes. SOCIAL HISTORY: She stop smoking about 2 years ago. She had smoked since age 14. She does not use any alcohol. FAMILY HISTORY: Noncontributory. REVIEW OF SYSTEMS: CONSTITUTIONAL: She has been in her baseline health up until the acute onset of her pain. Appetite is good. CARDIAC: No chest pain. PULMONARY: No hemoptysis. GI: As above. PHYSICAL EXAMINATION: GENERAL: The patient is a pleasant, alert, comfortable-appearing female. SKIN: Warm and dry. Anicteric sclerae. NECK: Supple. ABDOMEN: Soft, nondistended. Normal bowel sounds without any focal mass, tenderness, rebound, or guarding. LABORATORY DATA: White blood cell count was 18.1 on admission and 13.8 today, hemoglobin 13.5, platelets 212,000. Initial liver profile was normal except for an AST of 64. A followup liver profile today remains basically normal other than an AST of 65 and ALT of 40. Her total bilirubin and alkaline phosphatase have been normal. Her lipase was elevated at 3584 on admission and today is 497. IMAGING STUDIES: Demonstrate gallstones with a positive [place] sign on the ultrasound, although without any sign of gallbladder wall thickening, nor gallbladder wall fluid. The common bile duct measured 8 mm on the ultrasound. Her CT scan demonstrated findings consistent with gallstones as well as 2.9 cm pseudocyst in the pancreatic head with some surrounding inflammation consistent with pancreatitis. Her MRCP done today describes similar gallbladder findings, but normal-appearing intrahepatic and extrahepatic bile ducts without any sign of stones. The pancreas again was consistent with some mild pancreatitis and a small cyst. IMPRESSION: The patient is a 76-year-old female presenting with what appears to be acute gallstone related pancreatitis and most likely passage of a small common bile duct stone given her relatively rapid improvement both clinically and by her laboratories. Based on the imaging studies, laboratories, and her clinical course, I would hold off on ERCP at this time since it does not appear that she has any sign of a retained common bile duct stone. At this point, I would continue supportive care and I would agree with Dr. Obregon that it would be reasonable for her to undergo an eventual cholecystectomy during this admission, so as to hopefully prevent future episodes of gallstone pancreatitis or other gallbladder related complications. At this point, since she does not require ERCP, I will hold off on any further intervention, but please consult me if I can be of any further assistance during the hospitalization. This has all been discussed with the patient in detail and she is comfortable with that plan. Thank for the consultation. MD JARRETT Rao/CARMELLA / [phone] MISSY
[2022-01-09 03:21] VITALS: BP 114/55; PULSE 85; RESP 18; TEMP 36.5; O2SAT 93
--- NOTE | 2022-01-09 06:06 | PC.NURSE ---
Very frequent urination, approximately every hour, small amounts to commode. No pain or burning. Patient is cooperating with all fall risk precautions and ringing for assistance to commode.
[2022-01-09] MEDS: cefTRIAXone sodium 1 GM in 0.9 % Sodium Chloride 50 ML IV (06:14)
[2022-01-09] MEDS: 0.9 % Sodium Chloride Flush 3 ML SYRINGE IVFLUSH (06:15)
[2022-01-09] MEDS: Omeprazole 20 MG CAPSULE.DR PO (06:15)
[2022-01-09] MEDS: metroNIDAZOLE 500 MG TABLET PO (06:15)
[2022-01-09 08:00] VITALS: BP 112/53; PULSE 99; RESP 20; TEMP 36.8; O2SAT 90
[2022-01-09 08:32] LABS: MANUAL DIFF FLAG NO
[2022-01-09 08:37] LABS: Basophils Percent Auto 0.2 % (0-2); Eosinophils Absolute Auto 0.2 X10*3/uL (0.0-0.4); Eosinophils Percent Auto 1.5 % (0-4); Hematocrit 39.2 % (37.0-47.0); Hemoglobin 12.3 g/dl (12.0-16.0); Imm Gran Abs Auto 0.04 X10*3/uL (0.00-0.03); Imm Gran Pct Auto 0.3 % (0.0-0.4); Lymphocytes Percent Auto 7.1 % (20-40); Mean Corpuscular HGB Conc 31.4 g/dl (31.0-35.0); Mean Corpuscular Volume 95.6 fL (80.0-98.0); Mean Platelet Volume 10.5 fL (9.4-12.3); Monocytes Absolute Auto 1.1 X10*3/uL (0.1-1.2); Monocytes Percent Auto 7.7 % (2-11); Neutrophils Absolute Auto 11.3 x10*3/uL (2.0-8.3); Neutrophils Percent Auto 83.2 % (45-73); Platelet Count 202 X10*3/uL (160-400); Red Cell Distribution Width 13.5 % (11.0-16.0); White Blood Count 13.6 X10*3/uL (4.8-10.8)
[2022-01-09] MEDS: Docusate Sodium 100 MG CAPSULE PO ×2 (08:51→20:39)
[2022-01-09] MEDS: Metoprolol Tartrate 12.5 MG HALFTAB PO ×2 (08:51→20:39)
[2022-01-09 08:56] LABS: Alanine Aminotransferase 30 U/L (0-31); Albumin Level 3.2 g/dL (3.5-5.0); Alkaline Phosphatase 91 U/L (39-117); Anion Gap 15 (12-20); Aspartate Amino Transferase 38 U/L (5-31); Bilirubin Direct 0.3 mg/dL (0.0-0.5); Bilirubin Total 0.9 mg/dL (0.0-1.0); Blood Urea Nitrogen 17 mg/dL (9-16); Calcium 8.8 mg/dL (8.4-10.2); Carbon Dioxide 27 mmol/L (22-29); Chloride 99 mmol/L (96-108); Creatinine Clr Calc Pharmacy 92.4; Estimated Glomerular Filt Rate > 60; Glucose Random 71 mg/dL (60-115); Lipase 111 U/L (8-78); Potassium 3.8 mmol/L (3.3-5.1); Sodium 137 mmol/L (135-145); Total Protein 6.1 g/dL (6.5-8.0)
--- NOTE | 2022-01-09 09:56 | P.PNGS_ITS ---
Subjective Subjective Date of Service: 01/09/22 Interval history: Overall the patient feels improved today and has not required pain medication overnight. She denies nausea vomiting. Physical Exam Vital Signs: Vital Signs: Last Vital Signs Temp 98.3 F 01/09/22 08:00 Pulse 99 01/09/22 08:00 Resp 20 01/09/22 08:00 BP 112/53 L 01/09/22 08:00 Pulse Ox 90 L 01/09/22 08:00 BMI result Body Mass Index 41.5 Const: General: no acute distress Nutritional Appearance: obese Orientation/consciousness: patient oriented x3 Limitations: no limitations Resp: Other: On nasal O2, O2 sats 90% Effort & Inspection: no audible wheezes, no cough and uses accessory muscles GI: Inspection: Yes obesity Palpation (GI): Soft to palpation, nontender, no guarding and not rigid Percussion: Yes dullness to percussion Skin: Other: Normal color, no rash Neuro: General: patient oriented x3 Objective Data Active Medications Acetaminophen (Acetaminophen 325 Mg Tablet) 325 mg PO Q6H PRN PRN Reason: fever, mild pain Last Admin: 01/08/22 16:42 Dose: 325 mg Documented by: AMILCAR Albuterol Sulfate (Albuterol Sulfate 90 Mcg 8 Gm Inhaler) 2 puff INHALE QID PRN PRN Reason: Shortness Of Breath Docusate Sodium (Docusate Sodium 100 Mg Capsule) 100 mg PO BID [facility] Last Admin: 01/09/22 08:51 Dose: 100 mg Documented by: ROB Enoxaparin Sodium (Enoxaparin Sodium 40 Mg/0.4 Ml Syringe) 40 mg SUBCUT Q24H [facility] Last Admin: 01/08/22 21:14 Dose: 40 mg Documented by: ANIYA Fluticasone/Vilanterol (Fluticasone/Vilanterol 100/25 Blst.W.Dev) 1 puff INHALE RDAILY [facility] Last Admin: 01/09/22 07:32 Dose: Not Given Documented by: CUATE Non-Admin Reason: Med Not Available Lactated Ringer's (Lr) 1,000 mls @ 125 mls/hr IVCONT .Q8H [facility] Last Admin: 01/09/22 08:51 Dose: 125 mls/hr Documented by: ROB Ceftriaxone Sodium 1 gm/ (Sodium Chloride) 50 mls @ 100 mls/hr IV Q24H [facility] Last Infusion: 01/09/22 07:00 Dose: 0 mls/hr Documented by: ROB Metoprolol Tartrate (Metoprolol Tartrate 12.5 Mg Halftab) 12.5 mg PO BID [facility]; Protocol Last Admin: 01/09/22 08:51 Dose: 12.5 mg Documented by: ROB Metronidazole (Metronidazole 500 Mg Tablet) 500 mg PO Q8H [facility] Last Admin: 01/09/22 06:15 Dose: 500 mg Documented by: LUZ MARIA Morphine Sulfate (Morphine Sulfate 4 Mg/Ml Cartridge) 4 mg IVPUSH Q4H PRN; Pr otocol PRN Reason: Pain, Severe (Pain Scale 7-10) Last Admin: 01/08/22 19:25 Dose: 4 mg Documented by: ANIYA Omeprazole (Omeprazole 20 Mg Capsule.Dr) 20 mg PO DAILY@0630 [facility] Last Admin: 01/09/22 06:15 Dose: 20 mg Documented by: LUZ MARIA Ondansetron HCl (Ondansetron Hcl 4 Mg/2 Ml Vial) 4 mg IVPUSH Q8H PRN PRN Reason: Nausea and Vomiting Last Admin: 01/07/22 23:47 Dose: 4 mg Documented by: NAVYA Pharmacy Consult (Consult Rx Perform Med Rec) 1 each MISCELLANE ONCE PRN PRN Reason: Consult order Sodium Chloride (0.9 % Sodium Chloride Flush 3 Ml Syringe) 3 ml IVFLUSH QSHIFT [facility] Last Admin: 01/09/22 06:15 Dose: 3 ml Documented by: LUZ MARIA Labs CBC & Chem 7: 01/09/22 07:57 01/09/22 07:57 Labs: Laboratory Results - last 24 hr 01/08/22 01/09/22 01/09/22 06:02 07:57 07:57 MCV 95.6 MCH 30.0 MCHC 31.4 RDW 13.5 Plt Count 202 MPV 10.5 Immature Gran % (Auto) 0.3 Neut % (Auto) 83.2 H Lymph % (Auto) 7.1 L [place] % (Auto) 7.7 Eos % (Auto) 1.5 Baso % (Auto) 0.2 Lymph # (Auto) 1.0 L [place] # (Auto) 1.1 Eos # (Auto) 0.2 Baso # (Auto) 0.0 Abs Immat Gran (auto) 0.04 H Absolute Neuts (auto) 11.3 H Absolute Nucleated RBC 0.000 Nucleated RBC % (auto) 0.0 Anion Gap 15 Estim Creat Clear Calc 92.4 Estimated GFR > 60 Random Glucose 71 Calcium 8.8 Total Bilirubin 0.6 0.9 Direct Bilirubin 0.2 0.3 AST 65 H 38 H D ALT 40 H 30 Alkaline Phosphatase 94 91 Total Protein 6.6 6.1 L Albumin 3.5 3.2 L Lipase 497 H 111 H Microbiology Microbiology Results: Microbiology 01/07/22 18:33 Blood Culture - Preliminary Blood - Venous No growth after 24 hours. 01/07/22 18:12 Blood Culture - Preliminary Blood - Venous No growth after 24 hours. Procedures Date of Service Date of Service: 01/09/22 Progress Note: A&P Assessment and plan (1) Pancreatitis: Status: Acute (2) Gallstone: Status: Acute Plan 76-year-old female patient presenting with pancreatitis presumably due to gallstones. She feels improved today with no further abdominal pain. I disc ussed laparoscopic or possible open cholecystectomy with the patient and her son. She has definite risks due to the COPD he may not be able to be extubated following the surgery. We discussed the options of either non operative management verses laparoscopic or possible open cholecystectomy. She will discuss this further with her children. Fall Risk Details Current Medications: Current Medications Acetaminophen (Acetaminophen 325 Mg Tablet) 325 mg PO Q6H PRN PRN Reason: fever, mild pain Last Admin: 01/08/22 16:42 Dose: 325 mg Documented by: Albuterol Sulfate (Albuterol Sulfate 90 Mcg 8 Gm Inhaler) 2 puff INHALE QID PRN PRN Reason: Shortness Of Breath Docusate Sodium (Docusate Sodium 100 Mg Capsule) 100 mg PO BID [facility] Last Admin: 01/09/22 08:51 Dose: 100 mg Documented by: Enoxaparin Sodium (Enoxaparin Sodium 40 Mg/0.4 Ml Syringe) 40 mg SUBCUT Q24H [facility] Last Admin: 01/08/22 21:14 Dose: 40 mg Documented by: Fluticasone/Vilanterol (Fluticasone/Vilanterol 100/25 Blst.W.Dev) 1 puff INHALE RDAILY [facility] Last Admin: 01/09/22 07:32 Dose: Not Given Documented by: Lactated Ringer's (Lr) 1,000 mls @ 125 mls/hr IVCONT .Q8H [facility] Last Admin: 01/09/22 08:51 Dose: 125 mls/hr Documented by: Ceftriaxone Sodium 1 gm/ (Sodium Chloride) 50 mls @ 100 mls/hr IV Q24H [facility] Last Infusion: 01/09/22 07:00 Dose: Infused Documented by: Metoprolol Tartrate (Metoprolol Tartrate 12.5 Mg Halftab) 12.5 mg PO BID [facility]; Protocol Last Admin: 01/09/22 08:51 Dose: 12.5 mg Documented by: Metronidazole (Metronidazole 500 Mg Tablet) 500 mg PO Q8H [facility] Last Admin: 01/09/22 06:15 Dose: 500 mg Documented by: Morphine Sulfate (Morphine Sulfate 4 Mg/Ml Cartridge) 4 mg IVPUSH Q4H PRN; Protocol PRN Reason: Pain, Severe (Pain Scale 7-10) Last Admin: 01/08/22 19:25 Dose: 4 mg Documented by: Omeprazole (Omeprazole 20 Mg Capsule.Dr) 20 mg PO DAILY@0630 [facility] Last Admin: 01/09/22 06:15 Dose: 20 mg Documented by: Ondansetron HCl (Ondansetron Hcl 4 Mg/2 Ml Vial) 4 mg IVPUSH Q8H PRN PRN Reason: Nausea and Vomiting Last Admin: 01/07/22 23:47 Dose: 4 mg Documented by: Pharmacy Consult (Consult Rx Perform Med Rec) 1 each MISCELLANE ONCE PRN PRN Reason: Consult order Sodium Chloride (0.9 % Sodium Chloride Flush 3 Ml Syringe) 3 ml IVFLUSH QSHIFT [facility] Last Admin: 01/09/22 06:15 Dose: 3 ml Documented by: Time Spent With Patient Time: Total time spent is greater than 50% in coordination of care (as documented) at patient's floor/unit and/or counseling patient: Quality Stroke Does the patient have a stroke diagnosis?: No VTE Prior VTE?: No VTE Risk Level:: Medical - moderate - high VTE Device Contraindication: Treatment Not Indicated VTE Drug Contraindication: N/A - Med Ordered
--- NOTE | 2022-01-09 11:09 | HO.PM.IMPN ---
Subjective Subjective Date of Service: 01/09/22 Interval History: seen and examined this morning follow up for gallstone pancreatitis no overnight events no abdominal pain overnight no nausea or vomiting Review of Systems Review of Systems: Yes all other systems are reviewed and are negative Constitutional Constitutional: Denies chills and Denies fever(s) Cardiovascular Cardiovascular: Denies dyspnea Respiratory Respiratory: Denies cough and Denies dyspnea Gastrointestinal Gastrointestinal: Denies abdominal pain, Denies diarrhea, Denies nausea and Denies vomiting Physical Exam Vital Signs: Vital Signs: Last Vital Signs Temp 98.3 F 01/09/22 08:00 Pulse 99 01/09/22 08:00 Resp 20 01/09/22 08:00 BP 112/53 L 01/09/22 08:00 Pulse Ox 90 L 01/09/22 08:00 BMI result Body Mass Index 41.5 Const: General: cooperative, comfortable, alert and awake Nutritional Appearance: obese Orientation/consciousness: patient oriented x3 Resp: Effort & Inspection: normal respiratory effort and able to speak in complete sentences Auscultation: clear to auscultation bilaterally Cardio: Rate: regular rate Heart sounds: S1 normal heart sound present and S2 normal heart sound present GI: Inspection: No distended and Yes obesity Palpation (GI): Soft to palpation and nontender Neuro: General: patient oriented x3 Extrem: Other: trace pedal edema Objective Data Active Medications Acetaminophen (Acetaminophen 325 Mg Tablet) 325 mg PO Q6H PRN PRN Reason: fever, mild pain Last Admin: 01/08/22 16:42 Dose: 325 mg Documented by: AMILCAR Albuterol Sulfate (Albuterol Sulfate 90 Mcg 8 Gm Inhaler) 2 puff INHALE QID PRN PRN Reason: Shortness Of Breath Docusate Sodium (Docusate Sodium 100 Mg Capsule) 100 mg PO BID REPLACED BY [facility] Last Admin: 01/09/22 08:51 Dose: 100 mg Documented by: ROB Enoxaparin Sodium (Enoxaparin Sodium 40 Mg/0.4 Ml Syringe) 40 mg SUBCUT Q24H REPLACED BY [facility] Last Admin: 01/08/22 21:14 Dose: 40 mg Documented by: ANIYA Fluticasone/Vilanterol (Fluticasone/Vilanterol 100/25 Blst.W.Dev) 1 puff INHALE RDAILY REPLACED BY [facility] Last Admin: 01/09/22 07:32 Dose: Not Given Documented by: CUATE Non-Admin Reason: Med Not Available Lactated Ringer's (Lr) 1,000 mls @ 100 mls/hr IVCONT .Q10H REPLACED BY [facility] Last Admin: 01/09/22 08:51 Dose: 125 mls/hr Documented by: ROB Ceftriaxone Sodium 1 gm/ (Sodium Chloride) 50 mls @ 100 mls/hr IV Q24H REPLACED BY [facility] Last Infusion: 01/09/22 07:00 Dose: 0 mls/hr Documented by: ROB Metoprolol Tartrate (Metoprolol Tartrate 12.5 Mg Halftab) 12.5 mg PO BID [facility]PL[facility]ED BY [facility]; Protocol Last Admin: 01/09/22 08:51 Dose: 12.5 mg Documented by: ROB Metronidazole (Metronidazole 500 Mg Tablet) 500 mg PO Q8H REPLACED BY [facility] Last Admin: 01/09/22 06:15 Dose: 500 mg Documented by: LUZ MARIA Morphine Sulfate (Morphine Sulfate 4 Mg/Ml Cartridge) 4 mg IVPUSH Q4H PRN; Protocol PRN Reason: Pain, Severe (Pain Scale 7-10) Last Admin: 01/08/22 19:25 Dose: 4 mg Documented by: ANIYA Omeprazole (Omeprazole 20 Mg Capsule.Dr) 20 mg PO DAILY@0630 REPLACED BY [facility] Last Admin: 01/09/22 06:15 Dose: 20 mg Documented by: LUZ MARIA Ondansetron HCl (Ondansetron Hcl 4 Mg/2 Ml Vial) 4 mg IVPUSH Q8H PRN PRN Reason: Nausea and Vomiting Last Admin: 01/07/22 23:47 Dose: 4 mg Documented by: NAVYA Pharmacy Consult (Consult Rx Perform Med Rec) 1 each MISCELLANE ONCE PRN PRN Reason: Consult order Sodium Chloride (0.9 % Sodium Chloride Flush 3 Ml Syringe) 3 ml IVFLUSH QSHIFT REPLACED BY [facility] Last Admin: 01/09/22 06:15 Dose: 3 ml Documented by: LUZ MARIA Labs CBC & Chem 7: 01/09/22 07:57 01/09/22 07:57 Labs: Laboratory Results - last 24 hr 01/08/22 01/09/22 01/09/22 06:02 07:57 07:57 MCV 95.6 MCH 30.0 MCHC 31.4 RDW 13.5 Plt Count 202 MPV 10.5 Immature Gran % (Auto) 0.3 Neut % (Auto) 83.2 H Lymph % (Auto) 7.1 L [place] % (Auto) 7.7 Eos % (Auto) 1.5 Baso % (Auto) 0.2 Lymph # (Auto) 1.0 L [place] # (Auto) 1.1 Eos # (Auto) 0.2 Baso # (Auto) 0.0 Abs Immat Gran (auto) 0.04 H Absolute Neuts (auto) 11.3 H Absolute Nucleated RBC 0.000 Nucleated RBC % (auto) 0.0 Anion Gap 15 Estim Creat Clear Calc 92.4 Estimated GFR > 60 Random Glucose 71 Calcium 8.8 Total Bilirubin 0.6 0.9 Direct Bilirubin 0.2 0.3 AST 65 H 38 H D ALT 40 H 30 Alkaline Phosphatase 94 91 Total Protein 6.6 6.1 L Albumin 3.5 3.2 L Lipase 497 H 111 H Microbiology Microbiology Results: Microbiology 01/07/22 18:33 Blood Culture - Preliminary Blood - Venous No growth after 24 hours. 01/07/22 18:12 Blood Culture - Preliminary Blood - Venous No growth after 24 hours. Assessment and Plan (1) Pancreatitis: Status: Acute Plan This is a 76-year-old female with past medical history of CHF, hypertension, as well as COPD who presents to the hospital with complaints of abdominal pain found to have acute pancreatitis acute gallstone pancreatitis CT showing Hazy attenuation of the peripancreatic fat in the region of the pancreatic head.?2.9 cm simple appearing cyst/pseudocyst of the posterior aspect of the pancreatic head MRCP showing gallstone and gallbladder changes c/w acute cholecystitis; no CBD stone, no pancreatic duct stone Lipase trending down from 3584 to 111 seen by GI, no ERCP necessary, likely passed CBD stone - NPO, continue IVF - seen by surgery, likely will need CCY during this hospitalization COPD previously on supplemental oxygen, but pt denies at this time no exacerbation - continue home inhalers Chronic HFpEF euvolemic at this time. - monitor for volume overload as patient is being treated with IVF hypertension - continue metoprolol - HCTZ, norvasc on hold, resume as BP allows HLD -hold statin Morbid obesity BMI 41.6. Likely contributing to comorbidities h/o [id number] previously on AVAPS, but unable to tolerate h/o pulmonary embolism diagnosed in October 2020 no longer on anticoagulation DVT prophylaxis: Lovenox attending: dr. mccray Patient requires ongoing inpatient hospitalizations secondary to acute gallstone pancreatitis, IV pain control, probable cholecystectomy Quality Stroke Does the patient have a stroke diagnosis?: No VTE Prior VTE?: No VTE Risk Level:: Medical - moderate - high VTE Device Contraindication: Treatment Not Indicated VTE Drug Contraindication: N/A - Med Ordered
[2022-01-09 11:41] VITALS: BP 130/67; PULSE 98; RESP 20; TEMP 37.2; O2SAT 93
[2022-01-09 15:06] VITALS: BP 134/80; PULSE 96; RESP 18; O2SAT 93
[2022-01-09 18:52] VITALS: BP 131/63; PULSE 94; RESP 18; TEMP 37.2; O2SAT 93
[2022-01-09 20:28] LABS: Glucose, Whole Blood 149 mg/dL (60-115)
[2022-01-09] MEDS: Enoxaparin Sodium 40 MG/0.4 ML SYRINGE SUBCUT (22:43)
[2022-01-10] VITALS (7 sets, daily range): BP systolic 113–180; BP diastolic 54–89; PULSE 80–100; RESP 16–22; TEMP 36.2–37; O2SAT 92–98
[2022-01-10] MEDS: Lactated Ringers 1,000 ML 125 ML IVCONT ×3 (00:51→18:23)
[2022-01-10] MEDS: Morphine Sulfate 4 MG/ML CARTRIDGE IVPUSH (00:56)
[2022-01-10] MEDS: Omeprazole 20 MG CAPSULE.DR PO (05:50)
[2022-01-10 05:56] LABS: MANUAL DIFF FLAG NO
[2022-01-10 06:02] LABS: Basophils Percent Auto 0.3 % (0-2); Eosinophils Absolute Auto 0.2 X10*3/uL (0.0-0.4); Eosinophils Percent Auto 2.8 % (0-4); Hemoglobin 11.8 g/dl (12.0-16.0); Imm Gran Abs Auto 0.03 X10*3/uL (0.00-0.03); Imm Gran Pct Auto 0.3 % (0.0-0.4); Lymphocytes Absolute Auto 0.8 X10*3/uL (1.2-4.9); Lymphocytes Percent Auto 8.8 % (20-40); Mean Corpuscular HGB Conc 31.1 g/dl (31.0-35.0); Mean Corpuscular Hemoglobin 29.8 pg (27.0-33.0); Mean Platelet Volume 10.8 fL (9.4-12.3); Monocytes Absolute Auto 0.9 X10*3/uL (0.1-1.2); Monocytes Percent Auto 10.6 % (2-11); Neutrophils Absolute Auto 6.7 x10*3/uL (2.0-8.3); Neutrophils Percent Auto 77.2 % (45-73); Platelet Count 198 X10*3/uL (160-400); Red Blood Count 3.96 X10*6/uL (4.20-5.50); Red Cell Distribution Width 13.2 % (11.0-16.0); White Blood Count 8.6 X10*3/uL (4.8-10.8)
[2022-01-10 06:15] LABS: Anion Gap 14 (12-20); Blood Urea Nitrogen 12 mg/dL (9-16); Calcium 8.6 mg/dL (8.4-10.2); Carbon Dioxide 30 mmol/L (22-29); Chloride 102 mmol/L (96-108); Creatinine Clr Calc Pharmacy 100.4; Estimated Glomerular Filt Rate > 60; Glucose Random 96 mg/dL (60-115); Potassium 3.7 mmol/L (3.3-5.1); Sodium 142 mmol/L (135-145)
[2022-01-10] MEDS: Metoprolol Tartrate 12.5 MG HALFTAB PO ×2 (08:27→20:22)
[2022-01-10] MEDS: Docusate Sodium 100 MG CAPSULE PO ×2 (08:27→20:22)
--- NOTE | 2022-01-10 09:42 | HO.PM.IMPN ---
Subjective Subjective Date of Service: 01/10/22 Review of Systems follow up for gallstone pancreatitis no abdominal pain no nausea or vomiting Physical Exam Vital Signs: Vital Signs: Last Vital Signs Temp 97.7 F 01/10/22 07:39 Pulse 100 01/10/22 07:39 Resp 18 01/10/22 07:39 BP 151/66 H 01/10/22 07:39 Pulse Ox 92 01/10/22 07:39 BMI result Body Mass Index 41.5 Appearing in no acute distress lung sounds are clear to auscultation heart regular rate rhythm, clear S1, S2 positive bowel sounds, abdomen is soft, nontender neuro patient is alert x3, no focal deficits Objective Data Active Medications Acetaminophen (Acetaminophen 325 Mg Tablet) 325 mg PO Q6H PRN PRN Reason: fever, mild pain Last Admin: 01/08/22 16:42 Dose: 325 mg Documented by: AMILCAR Albuterol Sulfate (Albuterol Sulfate 90 Mcg 8 Gm Inhaler) 2 puff INHALE QID PRN PRN Reason: Shortness Of Breath Docusate Sodium (Docusate Sodium 100 Mg Capsule) 100 mg PO BID [facility] Last Admin: 01/10/22 08:27 Dose: 100 mg Documented by: TINA Enoxaparin Sodium (Enoxaparin Sodium 40 Mg/0.4 Ml Syringe) 40 mg SUBCUT Q24H [facility] Last Admin: 01/09/22 22:43 Dose: 40 mg Documented by: ODRISJin Fluticasone/Vilanterol (Fluticasone/Vilanterol 100/25 Blst.W.Dev) 1 puff INHALE RDAILY [facility] Last Admin: 01/10/22 07:30 Dose: Not Given Documented by: CUATE Non-Admin Reason: Patient Refused Lactated Ringer's (Lr) 1,000 mls @ 100 mls/hr IVCONT .Q10H [facility] Last Infusion: 01/10/22 09:00 Dose: 0 mls/hr Documented by: TINA Metoprolol Tartrate (Metoprolol Tartrate 12.5 Mg Halftab) 12.5 mg PO BID [facility]; Protocol Last Admin: 01/10/22 08:27 Dose: 12.5 mg Documented by: TINA Morphine Sulfate (Morphine Sulfate 4 Mg/Ml Cartridge) 4 mg IVPUSH Q4H PRN; Protocol PRN Reason: Pain, Severe (Pain Scale 7-10) Last Admin: 01/10/22 00:56 Dose: 4 mg Documented by: ABDULLAHI Omeprazole (Omeprazole 20 Mg Capsule.Dr) 20 mg PO DAILY@0630 [facility] Last Admin: 01/10/22 05:50 Dose: 20 mg Documented by: ABDULLAHI Ondansetron HCl (Ondansetron Hcl 4 Mg/2 Ml Vial) 4 mg IVPUSH Q8H PRN PRN Reason: Nausea and Vomiting Last Admin: 01/07/22 23:47 Dose: 4 mg Documented by: NAVYA Pharmacy Consult (Consult Rx Perform Med Rec) 1 each MISCELLANE ONCE PRN PRN Reason: Consult order Sodium Chloride (0.9 % Sodium Chloride Flush 3 Ml Syringe) 3 ml IVFLUSH [facility] Last Admin: 01/10/22 08:27 Dose: Not Given Documented by: TINA Non-Admin Reason: IV Running Labs CBC & Chem 7: 01/10/22 05:29 01/10/22 05:29 Labs: Laboratory Results - last 24 hr 01/09/22 01/10/22 01/10/22 19:57 05:29 05:29 MCV 96.0 MCH 29.8 MCHC 31.1 RDW 13.2 Plt Count 198 MPV 10.8 Immature Gran % (Auto) 0.3 Neut % (Auto) 77.2 H Lymph % (Auto) 8.8 L [place] % (Auto) 10.6 Eos % (Auto) 2.8 Baso % (Auto) 0.3 Lymph # (Auto) 0.8 L [place] # (Auto) 0.9 Eos # (Auto) 0.2 Baso # (Auto) 0.0 Abs Immat Gran (auto) 0.03 Absolute Neuts (auto) 6.7 Absolute Nucleated RBC 0.000 Nucleated RBC % (auto) 0.0 Anion Gap 14 Estim Creat Clear Calc 100.4 Estimated GFR > 60 POC Glucose 149 H Random Glucose 96 Calcium 8.6 Microbiology Microbiology Results: Microbiology 01/07/22 18:33 Blood Culture - Preliminary Blood - Venous No growth after 48 hours. 01/07/22 18:12 Blood Culture - Preliminary Blood - Venous No growth after 48 hours. Assessment and Plan (1) Pancreatitis: Status: Acute Plan This is a 76-year-old female with past medical history of CHF, hypertension, as well as COPD who presents to the hospital with complaints of abdominal pain found to have acute pancreatitis acute gallstone pancreatitis CT showing Hazy attenuation of the peripancreatic fat in the region of the pancreatic head.?2.9 cm simple appearing cyst/pseudocyst of the posterior aspect of the pancreatic head MRCP showing gallstone and gallbladder changes c/w acute cholecystitis; no CBD stone, no pancreatic duct stone Lipase trending down seen by GI, no ERCP necessary, likely passed CBD stone Advance to full liquids seen by surgery, likely will need CCY during this hospitalization, patient still deciding whether she wants the surgery d/t general anesthesia, will consult Pulm COPD previously on supplemental oxygen, but pt denies at this time no exacerbation continue home inhalers Chronic HFpEF euvolemic at this time. monitor for volume overload as patient is being treated with IVF hypertension continue metoprolol HCTZ, norvasc on hold, resume as BP allows HLD hold statin Morbid obesity BMI 41.6. Likely contributing to worsening of comorbidities h/o WOJCIECH previously on AVAPS, but unable to tolerate h/o pulmonary embolism diagnosed in October 2020 no longer on anticoagulation DVT prophylaxis: Lovenox attending: Dr. Ruth Patient requires ongoing inpatient hospitalizations secondary to acute gallstone pancreatitis, IV pain control, probable cholecystectomy Quality Stroke Does the patient have a stroke diagnosis?: No VTE Prior VTE?: No VTE Risk Level:: Medical - moderate - high VTE Device Contraindication: Treatment Not Indicated VTE Drug Contraindication: N/A - Med Ordered
--- NOTE | 2022-01-10 11:21 | P.PNGS_ITS ---
Subjective Subjective Date of Service: 01/10/22 Interval history: Feels much better, denies pain. Decided she does not want surgery. Physical Exam Vital Signs: Vital Signs: Last Vital Signs Temp 98.2 F 01/10/22 10:57 Pulse 84 01/10/22 10:57 Resp 18 01/10/22 10:57 BP 147/70 H 01/10/22 10:57 Pulse Ox 96 01/10/22 10:57 BMI result Body Mass Index 41.5 Const: General: comfortable and no acute distress Orientation/consciousness: patient oriented x3 GI: Inspection: No distended Palpation (GI): Soft to palpation, nontender, no guarding and not rigid Skin: General skin exam: no rashes or lesions noted Neuro: General: patient oriented x3 Objective Data Active Medications Acetaminophen (Acetaminophen 325 Mg Tablet) 325 mg PO Q6H PRN PRN Reason: fever, mild pain Last Admin: 01/08/22 16:42 Dose: 325 mg Documented by: AMILCAR Albuterol Sulfate (Albuterol Sulfate 90 Mcg 8 Gm Inhaler) 2 puff INHALE QID PRN PRN Reason: Shortness Of Breath Docusate Sodium (Docusate Sodium 100 Mg Capsule) 100 mg PO BID [facility] Last Admin: 01/10/22 08:27 Dose: 100 mg Documented by: TINA Enoxaparin Sodium (Enoxaparin Sodium 40 Mg/0.4 Ml Syringe) 40 mg SUBCUT Q24H [facility] Last Admin: 01/09/22 22:43 Dose: 40 mg Documented by: ABDULLAHI Fluticasone/Vilanterol (Fluticasone/Vilanterol 100/25 Blst.W.Dev) 1 puff INHALE RDAILY [facility] Last Admin: 01/10/22 07:30 Dose: Not Given Documented by: CUATE Non-Admin Reason: Patient Refused Lactated Ringer's (Lr) 1,000 mls @ 100 mls/hr IVCONT .Q10H [facility] Last Admin: 01/10/22 10:20 Dose: 125 mls/hr Documented by: TINA Metoprolol Tartrate (Metoprolol Tartrate 12.5 Mg Halftab) 12.5 mg PO BID [facility]; Protocol Last Admin: 01/10/22 08:27 Dose: 12.5 mg Documented by: TINA Morphine Sulfate (Morphine Sulfate 4 Mg/Ml Cartridge) 4 mg IVPUSH Q4H PRN; Protocol PRN Reason: Pain, Severe (Pain Scale 7-10) Last Admin: 01/10/22 00:56 Dose: 4 mg Documented by: ABDULLAHI Omeprazole (Omeprazole 20 Mg Capsule.Dr) 20 mg PO DAILY@0630 [facility] Last Admin: 01/10/22 05:50 Dose: 20 mg Documented by: ABDULLAHI Ondansetron HCl (Ondansetron Hcl 4 Mg/2 Ml Vial) 4 mg IVPUSH Q8H PRN PRN Reason: Nausea and Vomiting Last Admin: 01/07/22 23:47 Dose: 4 mg Documented by: NAVYA Pharmacy Consult (Consult Rx Perform Med Rec) 1 each MISCELLANE ONCE PRN PRN Reason: Consult order Sodium Chloride (0.9 % Sodium Chloride Flush 3 Ml Syringe) 3 ml IVFLUSH [facility] Last Admin: 01/10/22 08:27 Dose: Not Given Documented by: TINA Non-Admin Reason: IV Running Labs CBC & Chem 7: 01/10/22 05:29 01/10/22 05:29 Labs: Laboratory Results - last 24 hr 01/09/22 01/10/22 01/10/22 19:57 05:29 05:29 MCV 96.0 MCH 29.8 MCHC 31.1 RDW 13.2 Plt Count 198 MPV 10.8 Immature Gran % (Auto) 0.3 Neut % (Auto) 77.2 H Lymph % (Auto) 8.8 L [place] % (Auto) 10.6 Eos % (Auto) 2.8 Baso % (Auto) 0.3 Lymph # (Auto) 0.8 L [place] # (Auto) 0.9 Eos # (Auto) 0.2 Baso # (Auto) 0.0 Abs Immat Gran (auto) 0.03 Absolute Neuts (auto) 6.7 Absolute Nucleated RBC 0.000 Nucleated RBC % (auto) 0.0 Anion Gap 14 Estim Creat Clear Calc 100.4 Estimated GFR > 60 POC Glucose 149 H Random Glucose 96 Calcium 8.6 Microbiology Microbiology Results: Microbiology 01/07/22 18:33 Blood Culture - Preliminary Blood - Venous No growth after 48 hours. 01/07/22 18:12 Blood Culture - Preliminary Blood - Venous No growth after 48 hours. Procedures Date of Service Date of Service: 01/10/22 Progress Note: A&P Assessment and plan (1) Pancreatitis: Status: Acute (2) Gallstone: Status: Acute Plan 76-year-old female patient presenting with pancreatitis presumably due to gallstones. She continues to feel improved today with no further abdominal pain. She has decided against surgery. She does understand the chance of recurrence if she does not proceed with surgery. Can advance to a low fat diet. If tolerating, stable for d/c to home from surgical standpoint. Can f/u in office with Dr. Obregon. Fall Risk Details Current Medications: Current Medications Acetaminophen (Acetaminophen 325 Mg Tablet) 325 mg PO Q6H PRN PRN Reason: fever, mild pain Last Admin: 01/08/22 16:42 Dose: 325 mg Documented by: Albuterol Sulfate (Albuterol Sulfate 90 Mcg 8 Gm Inhaler) 2 puff INHALE QID PRN PRN Reason: Shortness Of Breath Docusate Sodium (Docusate Sodium 100 Mg Capsule) 100 mg PO BID [facility] Last Admin: 01/10/22 08:27 Dose: 100 mg Documented by: Enoxaparin Sodium (Enoxaparin Sodium 40 Mg/0.4 Ml Syringe) 40 mg SUBCUT Q24H [facility] Last Admin: 01/09/22 22:43 Dose: 40 mg Documented by: Fluticasone/Vilanterol (Fluticasone/Vilanterol 100/25 Blst.W.Dev) 1 puff INHALE RDAILY [facility] Last Admin: 01/10/22 07:30 Dose: Not Given Documented by: Lactated Ringer's (Lr) 1,000 mls @ 100 mls/hr IVCONT .Q10H [facility] Last Admin: 01/10/22 10:20 Dose: 125 mls/hr Documented by: Metoprolol Tartrate (Metoprolol Tartrate 12.5 Mg Halftab) 12.5 mg PO BID [facility]; Protocol Last Admin: 01/10/22 08:27 Dose: 12.5 mg Documented by: Morphine Sulfate (Morphine Sulfate 4 Mg/Ml Cartridge) 4 mg IVPUSH Q4H PRN; Protocol PRN Reason: Pain, Severe (Pain Scale 7-10) Last Admin: 01/10/22 00:56 Dose: 4 mg Documented by: Omeprazole (Omeprazole 20 Mg Capsule.Dr) 20 mg PO DAILY@0630 [facility] Last Admin: 01/10/22 05:50 Dose: 20 mg Documented by: Ondansetron HCl (Ondansetron Hcl 4 Mg/2 Ml Vial) 4 mg IVPUSH Q8H PRN PRN Reason: Nausea and Vomiting Last Admin: 01/07/22 23:47 Dose: 4 mg Documented by: Pharmacy Consult (Consult Rx Perform Med Rec) 1 each MISCELLANE ONCE PRN PRN Reason: Consult order Sodium Chloride (0.9 % Sodium Chloride Flush 3 Ml Syringe) 3 ml IVFLUSH QSHIFT [facility] Last Admin: 01/10/22 08:27 Dose: Not Given Documented by: Time Spent With Patient Time: Total time spent is greater than 50% in coordination of care (as documented) at patient's floor/unit and/or counseling patient: Quality Stroke Does the patient have a stroke diagnosis?: No VTE Prior VTE?: No VTE Risk Level:: Medical - moderate - high VTE Device Contraindication: Treatment Not Indicated VTE Drug Contraindication: N/A - Med Ordered
--- NOTE | 2022-01-10 11:52 | MHC.CM.PN ---
EMR REVIEWED, PER SURGICAL PT IMPROVING AND DECLINING SURGERY, PLAN TO ADVANCE DIET AND IF TOLERATING PT WILL D/C, PLAN REMAINS HOME NO SERVICES W/DTR'S SUPPORT.
--- NOTE | 2022-01-10 12:56 | P.CONPL_ITS ---
History of Present Illness History of Present Illness Consult date: 01/10/22 Requesting physician: Tara Mccurdy Chief complaint: Pancreatitis Narrative: THIS 76 YEARS OLD VERY PLEASANT FEMALE, MODERATELY OBESE, AND WITH PAST HISTORY OF CHRONIC OBSTRUCTIVE PULMONARY DISEASE, HAS BEEN ADMITTED HERE SINCE 325 WITH ACUTE ABDOMINAL PAIN NAUSEA VOMITING, AND DIAGNOSIS OF ACUTE PANCREATITIS. HER WORKUP DOES SHOW GALLSTONE, SURGICAL CONSIDERATION FOR LAPAROSCOPIC OR OPEN CHOLECYSTECTOMY IT HAS BEEN DISCUSSED WITH THE PATIENT. PULMONARY CONSULTATION REQUESTED FOR RISK STRATIFICATION, SHE HAS HISTORY CHRONIC OBSTRUCTIVE PULMONARY DISEASE, AND IS MORBIDLY OBESE. THIS PATIENT HAS HISTORY OF SMOKING FROM AGE [age], BUT WAS ABLE TO QUIT SUCCESSFULLY A FEW YEARS AGO. SHE DOES HAVE HISTORY OF OBSTRUCTIVE SLEEP APNEA IN THE PAST, TRIED ON CPAP BUT SHE COULD NOT TOLERATE. SHE DOES HAVE HISTORY OF CHRONIC OBSTRUCTIVE PULMONARY DISEASE WHICH HAS BEEN RELATIVELY STABLE. SHE WAS ADMITTED IN SEPTEMBER 2020 AND EARLY PART OF OCTOBER 2020 WITH ACUTE EXACERBATION AND RESPIRATORY FAILURE. SHE DID REQUIRE NONINVASIVE VENTILATORY SUPPORT AND OXYGEN. SHE WAS TRANSFERRED TO A REHAB FACILITY AND PLAN WAS THAT WHEN SHE IS DISCHARGED HOME SHE WOULD NEED A HOME VENT.DEVICE.(AVAPS/BIPAP ) IT WAS ORDERED BUT WHEN THIS PATIENT TRIED ON THE 1ST DAY SHE DID NOT LIKE IT AND REQUESTED TO REMOVE THAT FROM HER HOUSE. SHE STATES THAT HER BREATHING HAS BEEN VERY STABLE. SHE SLEEPS WELL AT NIGHT. DENIES ANY DAYTIME SLEEPINESS OR CHANGE IN MENTAL STATUS. FOR THE LAST 2 YEARS SHE HAS REMAINED QUITE STABLE. HER BASELINE PULMONARY MED. REGIMEN HAS BEEN BREO 200-25 1 INHALATION DAILY, VENTOLIN 2 PUFFS Q 4-6 HOURS P.R.N., AND SHE ALSO HAS NEBULIZER AT HOME WITH DUONEB [employer], WHICH SHE USES ABOUT ONCE OR TWICE A DAY. Review of Systems Review of Systems: Yes all other systems are reviewed and are negative Constitutional: Constitutional: Reports no additional constitutional complaints and Reports weakness (General body) Eyes: Eyes: Reports no additional eye complaints ENT: Reports system reviewed and no additional complaints, except as documented Cardiovascular: Cardiovascular: Denies chest pain, Denies irregular heart rhythm and Denies leg edema Respiratory: Respiratory: Reports as per HPI Gastrointestinal: Gastrointestinal: Reports abdominal pain and Reports nausea Genitourinary: Genitourinary: Reports no additional female genitourinary complaints Musculoskeletal: Musculoskeletal: Reports abnormal gait (Non ambulatory at this time) and Reports back pain Neurologic: Reports system reviewed and no additional complaints, except as documented, Reports abnormal gait (Non ambulatory at this time) and Reports weakness (General body) Psychiatric: Psychiatric: Reports no additional psychiatric complaints PMFSH Past Medical History Medical History Acute and chronic respiratory failure with hypercapnia Cor pulmonale, chronic Diastolic CHF with preserved left ventricular function, NYHA class 2 Emphysema lung Hyperkalemia Social History Social History Household Members: Children Housing: House Do you presently have visiting nurse or other home services: No Unable to assess alcohol history related to: Unknown Alcohol intake: unknown Patient Tobacco Use Status: Former Tobacco user Tobacco use type: Cigarette Substance Use Type: Unknown service: No Current occupational status: retired [employer] Allergies Allergy/AdvReac Type Severity Reaction Status Date / Time vancomycin Allergy Unknown itch, Verified 01/07/22 16:11 rash, hives Active Medications: Current Medications Acetaminophen (Acetaminophen 325 Mg Tablet) 325 mg PO Q6H PRN PRN Reason: fever, mild pain Last Admin: 01/08/22 16:42 Dose: 325 mg Documented by: Albuterol Sulfate (Albuterol Sulfate 90 Mcg 8 Gm Inhaler) 2 puff INHALE QID PRN PRN Reason: Shortness Of Breath Docusate Sodium (Docusate Sodium 100 Mg Capsule) 100 mg PO BID [facility] Last Admin: 01/10/22 08:27 Dose: 100 mg Documented by: Enoxaparin Sodium (Enoxaparin Sodium 40 Mg/0.4 Ml Syringe) 40 mg SUBCUT Q24H [facility] Last Admin: 01/09/22 22:43 Dose: 40 mg Documented by: Fluticasone/Vilanterol (Fluticasone/Vilanterol 100/25 Blst.W.Dev) 1 puff INHALE RDAILY [facility] Last Admin: 01/10/22 07:30 Dose: Not Given Documented by: Lactated Ringer's (Lr) 1,000 mls @ 100 mls/hr IVCONT .Q10H [facility] Last Admin: 01/10/22 10:20 Dose: 125 mls/hr Documented by: Metoprolol Tartrate (Metoprolol Tartrate 12.5 Mg Halftab) 12.5 mg PO BID [facility]; Protocol Last Admin: 01/10/22 08:27 Dose: 12.5 mg Documented by: Morphine Sulfate (Morphine Sulfate 4 Mg/Ml Cartridge) 4 mg IVPUSH Q4H PRN; Protocol PRN Reason: Pain, Severe (Pain Scale 7-10) Last Admin: 01/10/22 00:56 Dose: 4 mg Documented by: Omeprazole (Omeprazole 20 Mg Capsule.) 20 mg PO DAILY@0630 [facility] Last Admin: 01/10/22 05:50 Dose: 20 mg Documented by: Ondansetron HCl (Ondansetron Hcl 4 Mg/2 Ml Vial) 4 mg IVPUSH Q8H PRN PRN Reason: Nausea and Vomiting Last Admin: 01/07/22 23:47 Dose: 4 mg Documented by: Pharmacy Consult (Consult Rx Perform Med Rec) 1 each MISCELLANE ONCE PRN PRN Reason: Consult order Sodium Chloride (0.9 % Sodium Chloride Flush 3 Ml Syringe) 3 ml IVFLUSH [facility] Last Admin: 01/10/22 08:27 Dose: Not Given Documented by: Home Medications Medication Instructions Recorded Confirmed Last Taken Type atorvastatin 20 mg tablet 20 mg PO BEDTIME 10/13/20 01/07/22 01/06/22 History omeprazole 20 mg capsule,delayed 20 mg PO DAILY@0630 10/13/20 01/07/22 01/07/22 History release amlodipine 5 mg tablet 1 tab PO DAILY 10/19/20 01/07/22 01/07/22 History albuterol sulfate 1 vial INHALATION BID PRN 01/07/22 01/07/22 01/07/22 History albuterol sulfate 90 mcg/actuation 2 puff INHALATION QID PRN 01/07/22 01/07/22 01/07/22 History aerosol inhaler calcium carbonate 600 mg-vitamin 1 tab PO BID 01/07/22 01/07/22 01/07/22 History D3 5 mcg (200 unit) tablet docusate sodium 100 mg capsule 100 mg PO BID 01/07/22 01/07/22 01/07/22 History hydrochlorothiazide 25 mg tablet 1 tab PO DAILY 01/07/22 01/07/22 01/07/22 History lutein 6 mg capsule 6 mg PO DAILY 01/07/22 01/07/22 01/07/22 History metoprolol tartrate 25 mg tablet 0.5 tab PO BID 01/07/22 01/07/22 01/07/22 History omega 4-xsf-lke-fish oil 1,000 mg 1 cap PO DAILY 01/07/22 01/07/22 01/07/22 History (120 mg-180 mg) capsule (Fish Oil) vitamin B complex 1 cap PO DAILY 01/07/22 01/07/22 01/07/22 History vitamin E 400 unit capsule 400 unit PO DAILY 01/07/22 01/07/22 01/07/22 History Physical Exam 2 Vital Signs: Vital Signs: Last Vital Signs Temp 98.2 F 01/10/22 10:57 Pulse 84 01/10/22 10:57 Resp 18 01/10/22 10:57 BP 147/70 H 01/10/22 10:57 Pulse Ox 96 01/10/22 10:57 BMI result Body Mass Index 41.5 Const: Other: Patient is grossly obese, General: comfortable, no acute distress, alert and awake Orientation/consciousness: patient oriented x3 HEENT: Head: Yes normal to inspection General nose exam: No nasal polyps present and No nasal discharge present Face and sinus: Yes sinuses nontender Mouth: oropharynx normal Throat: No posterior oropharynx normal (Narrow and crowded, Mallampati class 4) Eyes: General: appearance normal, both eyes and all related structures Neck: Neck: Yes normal visual inspection, Yes no lymphadenopathy, Yes trachea midline and Yes no JVD Thyroid: Thyroid normal Chest: Chest palpation & inspection: normal inspection of the chest, normal palpation of entire chest wall and no tenderness Resp: Other: Percussion note resonant, breath sounds are distant and especially decreased over the bibasilar areas. She has a few fine expiratory crackles over the basilar areas. Cardio: Palpation: PMI not normal (Not palpable) Rate: regular rate Rhythm: regular rhythm Heart sounds: no gallops and no murmurs GI: Palpation (GI): Soft to palpation, nontender, No hepatosplenomegaly present, no masses and Other GI palpation findings present (Abdomen is grossly obese and protuberant) Auscultation: normal bowel sounds Back/Spine/Pelvis: Thoracic/Lumbar Spine: thoracic and lumbar spine normal to inspection and thoraco-lumbar ROM limited Skin: General skin exam: no rashes or lesions noted Neuro: General: patient oriented x3, No gait normal (Patient non ambulatory at this time) and no focal motor deficits Cranial nerves: Yes CN's II-XII intact bilaterally Extrem: General: Yes normal to inspection, Yes no clubbing, cyanosis or edema and Yes no calf tenderness Psych: Speech and movement: Normal speech and movement present Results Laboratory Findings CBC and BMP: 01/10/22 05:29 01/10/22 05:29 Abnormal lab findings: Abnormal Labs 01/07/22 01/07/22 01/08/22 16:28 16:28 06:02 WBC 18.1 H 13.8 H RBC Hgb Immature Gran % (Auto) 0.5 H 0.5 H Neut % (Auto) 84.9 H 80.1 H Lymph % (Auto) 8.5 L 8.7 L Lymph # (Auto) [place] # (Auto) 1.4 H Abs Immat Gran (auto) 0.09 H 0.07 H Absolute Neuts (auto) 15.3 H 11.1 H Carbon Dioxide 31 H BUN 20 H POC Glucose Direct Bilirubin 0.7 H AST 64 H ALT Total Protein Albumin Lipase 3584 H 01/08/22 01/09/22 01/09/22 06:02 07:57 07:57 WBC 13.6 H RBC 4.10 L Hgb Immature Gran % (Auto) Neut % (Auto) 83.2 H Lymph % (Auto) 7.1 L Lymph # (Auto) 1.0 L [place] # (Auto) Abs Immat Gran (auto) 0.04 H Absolute Neuts (auto) 11.3 H Carbon Dioxide BUN 21 H 17 H POC Glucose Direct Bilirubin AST 65 H 38 H D ALT 40 H Total Protein 6.1 L Albumin 3.2 L Lipase 497 H 111 H 01/09/22 01/10/22 01/10/22 19:57 05:29 05:29 WBC RBC 3.96 L Hgb 11.8 L Immature Gran % (Auto) Neut % (Auto) 77.2 H Lymph % (Auto) 8.8 L Lymph # (Auto) 0.8 L [place] # (Auto) Abs Immat Gran (auto) Absolute Neuts (auto) Carbon Dioxide 30 H BUN POC Glucose 149 H Direct Bilirubin AST ALT Total Protein Albumin Lipase Microbiology: Microbiology 01/07/22 18:33 Blood - Venous Blood Culture - Preliminary No growth after 48 hours. 01/07/22 18:12 Blood - Venous Blood Culture - Preliminary No growth after 48 hours. Diagnostic Findings Chest x-ray: report reviewed and image reviewed Assessment and Plan (1) Gallstone: Status: Acute (2) Pancreatitis: Status: Acute (3) WOJCIECH (obstructive sleep apnea): Status: Acute (4) COPD (chronic obstructive pulmonary disease): Status: Acute Plan This 76 years old, very alert and pleasant female, is recovering from acute pancreatitis. With the conservative treatment. However because of gallstones she may require cholecystectomy, laparoscopic worse is open. Patient has morbid obesity with previous diagnosis of obstructive sleep apnea but has not been able to use CPAP. Patient also has history of chronic obstructive pulmonary disease, with possible chronic hypoventilation syndrome/resp. failure , which seems to be compensated at present. FROM PULMONARY POINT OF VIEW SHE SHE IS A HIGH SURGICAL RISK, BUT IF SURGERY IS NEEDED, THERE IS NO ABSOLUTE CONTRAINDICATION AT THIS TIME. SHE WILL PROBABLY NEED VENT / NONINVASIVE VENTILATORY SUPPORT, O2 AND DUONEB UPDRAFTS, POSTOPERATIVELY, AT LEAST FOR A FEW DAYS. A MAINTENANCE THERAPY SHE SHOULD BE CONTINUED ON BREO -200 1 INHALATION DAILY, DUONEB UPDRAFTS Q 6 HOURS WHILE AWAKE, AND VENTOLIN 2 PUFFS Q 6 HOURS P.R.N. WHEN SHE GOES HOME. I WOULD RECOMMEND INCENTIVE SPIROMETRY Q.2 HOURS WHILE AWAKE FOR DEEP BREATHING EXERCISES. ALSO LET DUST CHECK VENOUS BLOOD GAS IN THE MORNING TO MAKE SURE THAT SHE IS NOT A RETAINER. Procedures Date of Service Date of Service: 01/10/22
[2022-01-10] MEDS: Enoxaparin Sodium 40 MG/0.4 ML SYRINGE SUBCUT (22:52)
[2022-01-11] MEDS: Acetaminophen 325 MG TABLET PO (02:09)
[2022-01-11 03:47] VITALS: BP 141/65; PULSE 93; RESP 17; TEMP 36.6; O2SAT 95
[2022-01-11] MEDS: Omeprazole 20 MG CAPSULE.DR PO (05:30)
[2022-01-11 07:16] VITALS: BP 172/79; PULSE 89; RESP 18; TEMP 36.3; O2SAT 94
[2022-01-11] MEDS: Metoprolol Tartrate 12.5 MG HALFTAB PO (07:22)
[2022-01-11] MEDS: Docusate Sodium 100 MG CAPSULE PO (07:22)
[2022-01-11] MEDS: 0.9 % Sodium Chloride Flush 3 ML SYRINGE IVFLUSH (07:23)
[2022-01-11] MEDS: Fluticasone/Vilanterol 100/25 BLST.W.DEV 1 PUFF INHALE (08:04)
[2022-01-11 08:05] VITALS: PULSE 84; RESP 18; O2SAT 94
--- NOTE | 2022-01-11 09:23 | PM.DS ---
DS: Providers Provider Date of Service: 01/11/22 Date of admission: 01/07/22 22:46 Primary care physician: Clint Tong MD Consults: 01/08/22 06:01 Consult to General Surgery Routine Consulting Provider: Jeramy Obregon Reason for consultation: gallstone pancreatitis/cholecystitis Has provider been notified: No 01/08/22 06:05 Consult to Gastroenterology Routine Consulting Provider: Franklyn Clemens Reason for consultation: CBD dilatation in acute pancreatitis Has provider been notified: No 01/10/22 09:51 Consult to Pulmonology Routine Consulting Provider: Debbi Olvera Reason for consultation: emphysema, May need ccy Has provider been notified: No Attending physician on discharge: José Miguel Ac Discharging clinician: Tara Mccurdy DS: Diagnosis Discharge Diagnosis (1) Gallstone: Status: Acute (2) Pancreatitis: Status: Acute (3) WOJCIECH (obstructive sleep apnea): Status: Acute (4) COPD (chronic obstructive pulmonary disease): Status: Acute DS: Summary Hospital Course Hospital Course: HP as per admitting provider This is a 76-year-old female with past medical history of acute on chronic respiratory failure with hypercapnia, COPD, diastolic heart failure, hypertension, who presents to the hospital with complaints of epigastric and right upper quadrant abdominal pain.? Patient reports that for the past 2 weeks this pain has been on and off mostly in the right upper quadrant.? Today she woke up with severe pain, 10/10, localized to the epigastric and right upper quadrant, associated with low appetite, worse with oral intake, sharp, constant, relieved by pain medication received in the ED.? she is nauseous but has no vomiting. Patient otherwise denies any chest pain, no shortness of breath, no cough, no diarrhea and has been feeling constipated, no urinary symptoms and no lower extremity edema.? No numbness tingling or weakness.?On arrival to the ED patient hemodynamically stable with no significant abnormal vitals Labs are significant for WBC count of 18.1, AST of 64, lipase of 3584, UA negative, abdominal CT shows acute pancreatitis as well as 2.9 cm simple appearing cyst pseudocyst of the posterior aspect of the pancreatic it.? Is also adjacent duodenal diverticulum.? Multiple gallstones are noted. Abdominal ultrasound was limited due to patient body habitus but there is cholelithiasis and sludge with a positive [place] suggestive of acute cholecystitis.? There is mild nonspecific dilatation of the CBD. I Anticipate a medically necessary 2 night admission to the hospital for management of acute pancreatitis and as well as evaluation of cholecystitis and close monitoring Gallstone pancreatitis. Treated with IV fluids, pain management and clear liquid diet. Her diet was advanced and she was tolerating a regular diet. She has a history of cholecystitis, and the general surgeon also suggested doing an MRCP assess for choledocholithiasis, however due to her fear of intubation she has refused to move forward with cholecystectomy. She was seen and evaluated by pulmonology and deemed a high risk for surgery but not an absolute contraindication at this time. Even still she still refuses and she can follow up with her primary care provider as needed. Time Spent with Patient Time attestation: Total time spent providing and/or coordinating discharge services: Discharge coordination time: Greater than 30 minutes Quality: Stroke Does the patient have a stroke diagnosis?: No Physical Exam Vital Signs: Vital Signs: Last Vital Signs Temp 97.4 F 01/11/22 07:16 Pulse 84 01/11/22 08:05 Resp 18 01/11/22 08:05 BP 172/79 H 01/11/22 07:16 Pulse Ox 94 01/11/22 07:16 BMI result Body Mass Index 41.5 Appearing in no acute distress head is normocephalic atraumatic eyes pupils are PERRLA sclera is anicteric mouth throat mucous membranes are intact and moist neck is supple no lymphadenopathy, no JVD noted lung sounds are clear to auscultation heart regular rate rhythm, clear S1, S2 positive bowel sounds, abdomen is soft, nontender neuro patient is alert x3, no focal deficits DS: Data Data Completed and Pending Labs on day of discharge: Preliminary micro results at discharge 01/07/22 18:33 Blood Culture - Preliminary Blood - Venous No growth after 48 hours. 01/07/22 18:12 Blood Culture - Preliminary Blood - Venous No growth after 48 hours. Discharge Plan Discharge Anticipated Discharge Date/Time: 01/11/22 09:19 Patient Disposition: Home, Self-Care Discharge Diagnosis: Gallstone pancreatitis Referrals: Clint Tong MD [Primary Care Provider] - 1 Week Discharge Medications: Continued amlodipine 5 mg tablet 1 tab PO DAILY 0RF Breo Ellipta 100-25 mcg/dose Blister With Device 1 puff inhalation RDAILY Qty: 1 0RF guaifenesin [Mucinex] 600 mg Tablet Extended Release 12hr 600 mg PO BID Qty: 20 0RF albuterol sulfate 2.5 mg /3 mL (0.083 %) solution for nebulization 1 vial inhalation BID PRN (Reason: Shortness Of Breath) 0RF calcium carbonate-vitamin D3 600 mg-5 mcg (200 unit) Tablet 1 tab PO BID 0RF lutein 6 mg Capsule 6 mg PO DAILY 0RF Rx Instructions: give with meal/snack docusate sodium 100 mg Capsule 100 mg PO BID 0RF hydrochlorothiazide 25 mg tablet 1 tab PO DAILY 0RF albuterol sulfate 90 mcg/actuation Hfa Aerosol Inhaler 2 puff INHALATION QID PRN (Reason: Shortness Of Breath) 0RF vitamin E 400 unit Capsule 400 unit PO DAILY 0RF vitamin B complex Capsule 1 cap PO DAILY 0RF metoprolol tartrate 25 mg tablet 0.5 tab PO BID 0RF omega 6-xbd-xov-fish oil [Fish Oil] 1,000 mg (120 mg-180 mg) Capsule 1 cap PO DAILY 0RF atorvastatin 20 mg tablet 20 mg PO BEDTIME 0RF omeprazole 20 mg capsule,delayed release(DR/EC) 20 mg PO DAILY@0630 0RF Discharge Orders: Discharge Order (Routine); Ordered 01/11/22 Ordered By: Tara Mccurdy Diet: advance to usual diet Activity on Discharge: As tolerated Stand Alone Forms: Patient Portal Discharge page Care Plan Goals: Resolution of symptoms Health Concerns: Gallstone pancreatitis Plan of Treatment: Follow up with your primary care provider as needed Assessment: See discharge summary
[2022-01-11 10:54] VITALS: BP 138/65; PULSE 87; RESP 18; TEMP 36.9; O2SAT 94
--- NOTE | 2022-01-11 13:41 | MHC.CM.PN ---
PT MEDICALLY CLEARED FOR DISCHARGE HOME SELF-CARE W/FAMILY FOR TRANSPORT.
== END 2022-01-11 15:22 | disposition home or self-care (01) | DRG 439 ==
LOC: HO.ED 20:16 → HO.EDOVER 22:53 → HO.S3 01-08 08:05
PROVIDERS: Nurse Practitioner Family; Physician Assistant Medical; Admitting Provider Internal Medicine; Emergency Provider Internal Medicine; PCP Internal Medicine; Visit Provider Nurse Practitioner Acute Care
DX: K85.10 Biliary acute pancreatitis without necrosis or infection (principal); K80.10 Calculus of gallbladder with chronic cholecystitis without obstruction; I50.32 Chronic diastolic (congestive) heart failure; K86.3 Pseudocyst of pancreas; Z68.41 Body mass index [BMI] 40.0-44.9, adult; K57.10 Diverticulosis of small intestine without perforation or abscess without bleeding; E78.5 Hyperlipidemia, unspecified; E66.01 Morbid (severe) obesity due to excess calories; G47.33 Obstructive sleep apnea (adult) (pediatric); I11.0 Hypertensive heart disease with heart failure; J44.9 Chronic obstructive pulmonary disease, unspecified; Z86.711 Personal history of pulmonary embolism; Z20.822 Contact with and (suspected) exposure to COVID-19; Z87.891 Personal history of nicotine dependence; Z79.899 Other long term (current) drug therapy
CPT/HCPCS: 36415; 74177; 74181; 76705; 80048; 80076; 81003; 82947; 83605; 83690; 84478; 84484; 85025; 87040; 87635; 93005; 96365; 96375; 96376; 99285; J0696; J1650; J2270; J2405; J2543; Q9967

== ENCOUNTER 2022-05-17 13:38 | Outpatient (REF) | payer MEDICARE, MEDICAID, SELFPAY ==
--- NOTE | ~2022-05-17 | XR_ITS ---
EXAMINATION: XR CHEST CLINICAL INFORMATION: Unspecified diastolic (congestive) heart failure. COMPARISON: Chest radiograph 10/27/[address] chest 10/27/2020 TECHNIQUE: 2 views of the chest were obtained. FINDINGS: Again seen is a mildly enlarged heart. There is no evidence of CHF. Right basilar atelectasis is seen. No consolidations or pleural effusions are present. No lung masses are seen. Calcifications in the right lower neck are unchanged consistent with a calcified thyroid nodule. XR/XR chest 2V IMPRESSION: No acute intrathoracic disease. Cardiomegaly and right basilar atelectasis. Incidentally noted is a calcified right thyroid nodule.
== END 2022-05-17 13:39 | disposition home or self-care (01) ==
LOC: HO.XRAY 13:38
PROVIDERS: PCP Internal Medicine; Visit Provider Internal Medicine Pulmonary Disease
DX: I50.30 Unspecified diastolic (congestive) heart failure (principal); J44.9 Chronic obstructive pulmonary disease, unspecified; R06.09 Other forms of dyspnea
CPT/HCPCS: 71046; 99212

== ENCOUNTER → 2022-06-01 14:28 | Outpatient (BNVA) | payer MEDICARE, MEDICAID, SELFPAY | PROVIDERS: PCP Internal Medicine; Visit Provider Internal Medicine Pulmonary Disease | DX: R06.09 Other forms of dyspnea (principal); J44.9 Chronic obstructive pulmonary disease, unspecified; I50.30 Unspecified diastolic (congestive) heart failure; Z79.899 Other long term (current) drug therapy | CPT/HCPCS: 99212 ==

== ENCOUNTER 2022-10-04 17:48 | Inpatient (IN) | payer MEDICARE, MEDICAID, SELFPAY ==
--- NOTE | ~2022-10-04 | XR_ITS ---
EXAMINATION: XR CHEST CLINICAL INFORMATION: SOB, COPD COMPARISON: Chest 05/17/2022 TECHNIQUE: Frontal view of the chest was obtained. FINDINGS: The lungs are somewhat expanded with increased bilateral interstitial vascular markings as well as interstitial markings. The heart size is enlarged. No consolidation or effusion seen. No gross bony abnormality. A calcified right thyroid nodule is again visualized. XR/XR chest 1V IMPRESSION: 1. Cardiomegaly with mild CHF. Suspect underlying mild interstitial changes. 2. Calcified right thyroid nodule, stable.
--- NOTE | ~2022-10-04 | CT_ITS ---
EXAMINATION: CT CHEST, ABDOMEN AND PELVIS WITHOUT CONTRAST CLINICAL INFORMATION: Hypoxia, elevated LFTs COMPARISON: 01/07/2022 TECHNIQUE: Multidetector volumetric imaging was performed from the thoracic inlet through the pubic symphysis. Sagittal and coronal reformatted images were obtained on the technologist's workstation. Axial MIP volume rendering provided. This CT examination was performed using dose optimization techniques as appropriate, variously including the following: *Automated exposure control *Adjustment of mA and/or kV according to patient size (this includes techniques or standardized protocols for targeted exams where dose is matched to indication/reason for exam; i.e. extremities or head) *Use of iterative reconstruction technique DLP: 1752 mGy-cm FINDINGS: CHEST: Lungs: Suboptimal evaluation some regions due to respiratory motion artifact. There is collapse of the posterolateral the trachea, suggesting tracheomalacia. Streaky opacities towards the lung bases favor subsegmental atelectasis. There is suspected tree-in-bud type nodularity within portions of the right upper and lower lobes, favoring an infectious/inflammatory bronchiolitis. Mediastinum: Thyroid gland is enlarged and multinodular. There are subcentimeter mediastinal lymph nodes within the range of normal variation. Cardiomegaly is noted. There is atherosclerotic calcification along the aorta. Coronary Artery Calcification: Present. Pericardium/Pleura: No significant effusion. Chest Wall/Axilla: No axillary lymphadenopathy is present. ABDOMEN/PELVIS: Liver, Gallbladder, Biliary Tree: The liver is normal in size, shape, and attenuation. No focal hepatic lesion or biliary ductal dilatation is identified. Gallbladder appears partially contracted and contains multiple gallstones. Pancreas: Moderately atrophic. Redemonstrated approximately 1.9 cm cystic structure along the posterior head of the pancreas. Spleen: Unremarkable. Adrenal Glands: Unremarkable. Kidneys and Ureters: The kidneys are normal in size, shape, and attenuation. No hydronephrosis or hydroureter or calculi seen. No perinephric stranding. Small cyst noted in the left kidney; no follow-up recommended. Bladder: Collapsed with Javed catheter in place. Gastrointestinal Tract: Small hiatal hernia. Colonic diverticulosis is noted. The small and large bowel are otherwise unremarkable without evidence of obstruction or pericolonic inflammatory change. The appendix is unremarkable. No free fluid or free air is seen. Abdominal Wall: No hernia is demonstrated. Lymphovascular Structures: Lymph nodes: Normal. Vascular: There is atherosclerotic calcification along the aorta. Pelvic Viscera: Unremarkable. OSSEOUS STRUCTURES: Multilevel degenerative changes are present in the spine. CT/CT abdomen pelvis wo IV con IMPRESSION: 1. Suspected tree-in-bud type nodularity in the right upper and lower lobes, favoring an infectious/inflammatory bronchiolitis. 2. Cholelithiasis. 3. Cardiomegaly. 4. Enlarged, multinodular thyroid gland. 5. Additional chronic findings as noted above.
--- NOTE | ~2022-10-04 | XR_ITS ---
EXAMINATION: XR CHEST CLINICAL INFORMATION: Triple-lumen catheter COMPARISON: CT from earlier today TECHNIQUE: Frontal view of the chest was obtained. FINDINGS: Right IJ central line tip lies in the region of the distal SVC. Redemonstrated streaky bibasilar opacities. Tree-in-bud type nodularity seen on CT is not well demonstrated radiographically. No evidence of pneumothorax or significant pleural effusion. Cardiac silhouette remains enlarged. Calcification is present at the aortic arch. No acute osseous findings are seen. XR/XR chest 1V IMPRESSION: Right IJ central line tip in the region of the distal SVC. Redemonstrated streaky bibasilar opacities, similar to prior. Tree-in-bud type nodularity seen on CT is not well demonstrated radiographically.
[2022-10-04 17:53] VITALS: BP 147/102; BP 165/110; PULSE 55; PULSE 59; RESP 29; O2SAT 92; O2SAT 99; BMI 43.2
--- NOTE | 2022-10-04 18:03 | ECG_ITS ---
Test Reason : DIFFICULTY BREATHING Blood Pressure : / mmHG Vent. Rate : 057 BPM Atrial Rate : 057 BPM P-R Int : 164 ms QRS Dur : 108 ms QT Int : 466 ms P-R-T Axes : 092 -03 -22 degrees QTc Int : 453 ms Sinus bradycardia Incomplete right bundle branch block Nonspecific T wave abnormality Abnormal ECG When compared with ECG of 07-JAN-2022 16:52, Inverted T waves have replaced nonspecific T wave abnormality in Inferior leads Nonspecific T wave abnormality now evident in Anterior leads Referred By: Zulema Brownlee Electronically Signed By:Alfonso Abel
--- NOTE | 2022-10-04 18:10 | ED.SOB ---
HPI - SOB/Dyspnea General Chief Complaint: Dyspnea Stated Complaint: DIFF BREATHING 80%RA PER EMS Time Seen by Provider: 10/04/22 17:59 Source: patient Mode of arrival: ambulatory Limitations: no limitations History of Present Illness HPI Narrative: Patient comes to the emergency room complaining of shortness of breath for couple of days. Patient has history of COPD, not oxygen dependent. Patient has been using her albuterol without any relief. When EMS arrived to the patient's residence, her oxygen saturation was 80% on room air. They gave her a DuoNeb and brought her to emergency room. On arrival, when we were switching the patient from the EMS stretcher to our bed, patient's oxygen saturation dropped to 79% on room air. Patient was started immediately on BiPAP. Related Data Home Medications Medication Instructions Recorded Confirmed atorvastatin 20 mg tablet 20 mg PO BEDTIME 10/13/20 10/04/22 omeprazole 20 mg capsule,delayed 20 mg PO DAILY@0630 10/13/20 10/04/22 release amlodipine 5 mg tablet 1 tab PO DAILY 10/19/20 10/04/22 albuterol sulfate 2.5 mg/3 mL 1 vial inhalation Q4H PRN 01/07/22 10/04/22 (0.083 %) solution for nebulization Shortness Of Breath albuterol sulfate 90 mcg/actuation 2 puff inhalation QID PRN 01/07/22 10/04/22 aerosol inhaler Shortness Of Breath docusate sodium 100 mg capsule 100 mg PO BID 01/07/22 10/04/22 metoprolol tartrate 25 mg tablet 0.5 tab PO BID 01/07/22 10/04/22 B-complex with vitamin C 1 tab PO BEDTIME 10/04/22 10/04/22 aspirin 81 mg tablet,delayed 81 mg PO MOWEFR@2100 10/04/22 10/04/22 release buspirone 5 mg tablet 2 tab PO BID PRN Anxiety 10/04/22 10/04/22 cholecalciferol (vitamin D3) 10 10 mcg PO BEDTIME 10/04/22 10/04/22 mcg (400 unit) tablet (Vitamin D3) docosahexaenoic acid (dha)-epa 1 cap PO BEDTIME 10/04/22 10/04/22 capsule doxycycline hyclate 100 mg capsule 1 cap PO BID 10/04/22 10/04/22 losartan 25 mg tablet 1 tab PO DAILY 10/04/22 10/04/22 lutein 20 mg capsule 20 mg PO BEDTIME 10/04/22 10/04/22 melatonin 5 mg tablet 5 mg PO BEDTIME PRN Insomnia 10/04/22 10/04/22 tizanidine 4 mg tablet 1 tab PO DAILY 10/04/22 10/04/22 torsemide 20 mg tablet 20 mg PO DAILY 10/04/22 10/04/22 tramadol 50 mg tablet 1 tab PO BID PRN Pain 10/04/22 10/04/22 Previous Rx's Medication Instructions Recorded fluticasone furoate 100 1 puff inhalation RDAILY #1 ea 11/03/20 mcg-vilanterol 25 mcg/dose inhalation powder (Breo Ellipta) guaifenesin 600 mg tablet, 600 mg PO BID #20 tabs 11/03/20 extended release 12 hr (Mucinex) Allergies Allergy/AdvReac Type Severity Reaction Status Date / Time vancomycin Allergy Unknown itch, Verified 06/01/22 14:34 rash, hives Review of Systems Review of Systems: Constitutional : No Weight loss, No Fever, No Chills, No Night Sweats, No Fatigue, No Malaise ENT/Mouth : No Hearing loss, No Ear Pain, No Nasal Congestion, No Sinus Pain, No Hoarseness, No sore throat, No Rhinorrhea, No Swallowing Difficulty Eyes: No Eye Pain, No Swelling, No Redness, No Foreign Body, No Discharge, No Vision Changes Cardiovascular : Denies chest pain, complaining of orthopnea Respiratory : Complaining of cough, worsening wheezing, significant shortness of breath Gastrointestinal : No Nausea, No Vomiting, No Diarrhea, No Constipation, No abdominal Pain, No Hematochezia, No Melena Genitourinary : no irregular bleeding, No Dysuria, No Urinary Frequency, No Hematuria, No Urinary Incontinence, No Urgency, No Flank Pain, No Urinary Flow Changes, No Hesitancy Musculoskeletal : No joint pain, No Myalgias, No Joint Swelling Skin : No Skin Lesions, No rash Neuro : No Weakness, No Numbness, No Paresthesias, No Loss of Consciousness, No Dizziness, No Headache Psych : No Anxiety/Panic, No Depression, No SI/HI/AH/VH, No Social Issues, Heme/Lymph: No Bruising, No Bleeding,No Lymphadenopathy Endocrine : No Polyuria, No Polydipsia, No Temperature Intolerance FOR[facility]LY [facility] Past Medical History Medical History Acute and chronic respiratory failure with hypercapnia Cholecystitis COPD (chronic obstructive pulmonary disease) Cor pulmonale, chronic Diastolic CHF with preserved left ventricular function, NYHA class 2 Dilated cbd, acquired Emphysema lung Gallstone Hyperkalemia Leukocytosis WOJCIECH (obstructive sleep apnea) Pancreatitis Supplemental oxygen dependent Social History Social History Household Members: Children Housing: House Do you presently have visiting nurse or other home services: No Unable to assess alcohol history related to: Unknown Alcohol intake: never Patient Tobacco Use Status: Former Tobacco user Tobacco use type: Cigarette Smoked in Last 30 Days: No Use of substances other than those prescribed or required for medical reasons: No Substance Use Type: Unknown Advance Directives: No Advance Directives Information Provided: No service: No Current occupational status: retired Physical Exam Vital Signs: Vital Signs: Last Vital Signs Pulse 63 10/04/22 22:40 Resp 22 H 10/04/22 21:14 BP 79/46 L 10/04/22 22:40 Pulse Ox 96 10/04/22 20:30 O2 Del Method 10/04/22 20:30 FiO2 35 10/04/22 17:53 BMI result Body Mass Index 43.9 Const: Other: Appearance: Alert. Oriented X3. Ill-appearing, in respiratory distress Eyes: Pupils equal, round and reactive to light. ENT: Pharynx normal. Neck: Normal inspection. Neck supple. No lymph nodes noted. No crepitus CVS: Normal heart rate and rhythm. Pulses normal. Normal S1 and S2 Respiratory: Bilateral wheezing, bilateral crackles decreased breath sounds, tachypneic, oxygen saturation 79% on room air Abdomen: Soft and nontender. No rigidity. No distention. Skin: Skin warm and dry. Normal skin color. Normal skin turgor. Extremities: No lower extremity edema. No Lacerations. No Rash Neuro: Oriented X 3. No motor deficit. No sensory deficit. Moving all extremities. No slurred speech. CN 2 through 12 grossly intact Psych: calm, cooperative, normal affect Course Course Course Narrative: Patient was started on BiPAP, patient was given antibiotics. However, patient was not given significant amount of fluids, patient has history of CHF. Patient was started on BiPAP, Lasix was not given, blood pressure started dropping with BiPAP. Patient started breathing more comfortably on BiPAP as well. Patient was given azithromycin and ceftriaxone empirically for possible COPD exacerbation. Within couple of hours of being on BiPAP, patient's blood pressure dropped to the low 70s. Patient never had any chest pain. I discussed the EKG, labs with Dr. Abel, does not seem to be cardiac etiology. , however, there is clearly some major underlying issue. We will do a CT scan of the abdomen. Patient had is currently in new onset CHF, renal failure and hepatic failure. However, does not seem to be from cardiac etiology. It may be from prolonged ischemia/hypoxia? Etiology remains unclear. This time, we will keep the patient in our ICU, patient accepted by Dr. Navas. Troponins will be trended. Patient will be started on heparin, Dr. Abel, it is possible that the heparin may not have a significant impact on pt's overall status, but we will go ahead and heparinize. Patient will need a central line, will be inserted by the ICU team. Medications Administered Generic Name Dose Route Start Last Admin Trade Name Freq PRN Reason Stop Dose Admin Norepinephrine Bitartrate 8 mg in 250 mls @ 0 mls/hr 10/04/22 22:00 10/04/22 22:40 Levophed IVCONT 0.05 mcg/kg/min .Q0M KALPESH 11.2 mls/hr Administration Protocol Per Protocol Discontinued Medications Generic Name Dose Route Start Last Admin Trade Name Freq PRN Reason Stop Dose Admin Albuterol Sulfate 10 mg 10/04/22 18:00 10/04/22 18:25 Albuterol Sulfate (0.083%) 2.5 Mg/3 Ml Vial.Neb INHALE 10/04/22 18:01 10 mg ONCE ONE Administration Aspirin 300 mg 10/04/22 21:45 10/04/22 22:21 Aspirin 300 Mg Supp.Rect SD 10/04/22 21:46 300 mg ONCE ONE Administration Diatrizoate Meglum/Diatrizoate Sod 30 ml 10/04/22 21:49 10/04/22 21:50 Diatrizoate Meglumine, Sodium 30 Ml Solution PO 10/04/22 21:50 30 ml ONCE ONE Administration Magnesium Sulfate 2 gm in 50 mls @ 25 mls/hr 10/04/22 18:00 10/04/22 21:27 Magnesium Sulfate/H2o IV 10/04/22 19:59 Infused ONCE ONE Infusion Sodium Chloride 1,000 mls @ 999 mls/hr 10/04/22 18:01 10/04/22 18:17 Ns IVCONT 10/04/22 19:01 999 mls/hr .Q1H1M ONE Administration Ceftriaxone Sodium 1 gm/ 50 mls @ 100 mls/hr 10/04/22 18:04 10/04/22 21:27 Sodium Chloride IV 10/04/22 18:33 Infused ONCE ONE Infusion Azithromycin 500 mg/ Sodium 250 mls @ 125 mls/hr 10/04/22 18:04 10/04/22 21:27 Chloride IV 10/04/22 20:03 Infused ONCE ONE Infusion Methylprednisolone Sodium Succinate 125 mg 10/04/22 18:00 10/04/22 18:14 Methylprednisolone Sod Succ 125 Mg/2 Ml Vial IVPUSH 10/04/22 18:01 125 mg ONCE ONE Administration Medical Decision Making Lab Data Result Diagrams: 10/04/22 18:10 10/04/22 18:10 Labs: Lab Results 10/04/22 10/04/22 10/04/22 Range/Units 18:10 18:10 18:10 WBC 14.5 H (4.8-10.8) X10*3/uL RBC 4.33 (4.20-5.50) X10*6/uL Hgb 12.9 (12.0-16.0) g/dl Hct 42.8 (37.0-47.0) % MCV 98.8 H (80.0-98.0) fL MCH 29.8 (27.0-33.0) pg MCHC 30.1 L (31.0-35.0) g/dl RDW 16.3 H (11.0-16.0) % Plt Count 222 (160-400) X10*3/uL MPV 11.3 (9.4-12.3) fL Immature Gran % (Auto) 0.8 H (0.0-0.4) % Neut % (Auto) 83.4 H (45-73) % Lymph % (Auto) 8.2 L (20-40) % Banks % (Auto) 6.0 (2-11) % Eos % (Auto) 1.3 (0-4) % Baso % (Auto) 0.3 (0-2) % Lymph # (Auto) 1.2 (1.2-4.9) X10*3/uL Banks # (Auto) 0.9 (0.1-1.2) X10*3/uL Eos # (Auto) 0.2 (0.0-0.4) X10*3/uL Baso # (Auto) 0.0 (0.0-0.2) X10*3/uL Abs Immat Gran (auto) 0.11 H (0.00-0.03) X10*3/uL Absolute Neuts (auto) 12.1 H (2.0-8.3) x10*3/uL Absolute Nucleated RBC 0.030 H (0.0-0.012) X10*3/uL Nucleated RBC % (auto) 0.2 (0.0-0.2) /100WBC PT 15.5 H (10.0-13.1) SEC INR 1.3 H (0.9-1.1) VBG pH (7.32-7.43) VBG pCO2 mmHg VBG pO2 mmHg VBG HCO3 (22-26) mmol/L VBG O2 Saturation % VBG Base Excess mmol/L Sodium 138 (135-145) mmol/L Potassium 5.6 H D (3.3-5.1) mmol/L Chloride 98 (96-108) mmol/L Carbon Dioxide 28 (22-29) mmol/L Anion Gap 18 (12-20) BUN 35 H (9-16) mg/dL Creatinine 2.65 H (0.5-1.4) mg/dL Estim Creat Clear Calc 22.3 Estimated GFR 17 Random Glucose 160 H (60-115) mg/dL Lactic Acid (0.5-2.0) mmol/L Lactic Acid F/U @ 2Hr (0.5-2.0) mmol/L Calcium 9.3 D (8.4-10.2) mg/dL Phosphorus 7.0 H (2.7-4.5) mg/dL Total Bilirubin 0.7 (0.0-1.0) mg/dL Direct Bilirubin 0.5 (0.0-0.5) mg/dL AST 4065 H (5-31) U/L ALT 1770 H (0-31) U/L Alkaline Phosphatase 166 H (39-117) U/L Troponin I High Sens (<3.5-17.0) ng/L B-Natriuretic Peptide (<100) pg/mL Total Protein 6.3 L (6.5-8.0) g/dL Albumin 3.4 L (3.5-5.0) g/dL COVID-19 (DONTE) (Negative) COVID-19 Clin Com Influenza Type A (WILMER) (Negative) Influenza Type B (WILMER) (Negative) Influenza A & B Note 10/04/22 10/04/22 10/04/22 Range/Units 18:10 18:10 18:10 WBC (4.8-10.8) X10*3/uL RBC (4.20-5.50) X10*6/uL Hgb (12.0-16.0) g/dl Hct (37.0-47.0) % MCV (80.0-98.0) fL MCH (27.0-33.0) pg MCHC (31.0-35.0) g/dl RDW (11.0-16.0) % Plt Count (160-400) X10*3/uL MPV (9.4-12.3) fL Immature Gran % (Auto) (0.0-0.4) % Neut % (Auto) (45-73) % Lymph % (Auto) (20-40) % Banks % (Auto) (2-11) % Eos % (Auto) (0-4) % Baso % (Auto) (0-2) % Lymph # (Auto) (1.2-4.9) X10*3/uL Banks # (Auto) (0.1-1.2) X10*3/uL Eos # (Auto) (0.0-0.4) X10*3/uL Baso # (Auto) (0.0-0.2) X10*3/uL Abs Immat Gran (auto) (0.00-0.03) X10*3/uL Absolute Neuts (auto) (2.0-8.3) x10*3/uL Absolute Nucleated RBC (0.0-0.012) X10*3/uL Nucleated RBC % (auto) (0.0-0.2) /100WBC PT (10.0-13.1) SEC INR (0.9-1.1) VBG pH (7.32-7.43) VBG pCO2 mmHg VBG pO2 mmHg VBG HCO3 (22-26) mmol/L VBG O2 Saturation % VBG Base Excess mmol/L Sodium (135-145) mmol/L Potassium (3.3-5.1) mmol/L Chloride (96-108) mmol/L Carbon Dioxide (22-29) mmol/L Anion Gap (12-20) BUN (9-16) mg/dL Creatinine (0.5-1.4) mg/dL Estim Creat Clear Calc Estimated GFR Random Glucose (60-115) mg/dL Lactic Acid 3.0 H* (0.5-2.0) mmol/L Lactic Acid F/U @ 2Hr (0.5-2.0) mmol/L Calcium (8.4-10.2) mg/dL Phosphorus (2.7-4.5) mg/dL Total Bilirubin (0.0-1.0) mg/dL Direct Bilirubin (0.0-0.5) mg/dL AST (5-31) U/L ALT (0-31) U/L Alkaline Phosphatase (39-117) U/L Troponin I High Sens 2530.8 H* (<3.5-17.0) ng/L B-Natriuretic Peptide (<100) pg/mL Total Protein (6.5-8.0) g/dL Albumin (3.5-5.0) g/dL COVID-19 (DONTE) Negative (Negative) COVID-19 Clin Com See Note Influenza Type A (WILMER) (Negative) Influenza Type B (WILMER) (Negative) Influenza A & B Note 10/04/22 10/04/22 10/04/22 Range/Units 18:10 18:15 18:47 WBC (4.8-10.8) X10*3/uL RBC (4.20-5.50) X10*6/uL Hgb (12.0-16.0) g/dl Hct (37.0-47.0) % MCV (80.0-98.0) fL MCH (27.0-33.0) pg MCHC (31.0-35.0) g/dl RDW (11.0-16.0) % Plt Count (160-400) X10*3/uL MPV (9.4-12.3) fL Immature Gran % (Auto) (0.0-0.4) % Neut % (Auto) (45-73) % Lymph % (Auto) (20-40) % Banks % (Auto) (2-11) % Eos % (Auto) (0-4) % Baso % (Auto) (0-2) % Lymph # (Auto) (1.2-4.9) X10*3/uL Banks # (Auto) (0.1-1.2) X10*3/uL Eos # (Auto) (0.0-0.4) X10*3/uL Baso # (Auto) (0.0-0.2) X10*3/uL Abs Immat Gran (auto) (0.00-0.03) X10*3/uL Absolute Neuts (auto) (2.0-8.3) x10*3/uL Absolute Nucleated RBC (0.0-0.012) X10*3/uL Nucleated RBC % (auto) (0.0-0.2) /100WBC PT (10.0-13.1) SEC INR (0.9-1.1) VBG pH 7.22 L (7.32-7.43) VBG pCO2 67 mmHg VBG pO2 34 mmHg VBG HCO3 28 H (22-26) mmol/L VBG O2 Saturation 42.0 % VBG Base Excess -1.4 mmol/L Sodium (135-145) mmol/L Potassium (3.3-5.1) mmol/L Chloride (96-108) mmol/L Carbon Dioxide (22-29) mmol/L Anion Gap (12-20) BUN (9-16) mg/dL Creatinine (0.5-1.4) mg/dL Estim Creat Clear Calc Estimated GFR Random Glucose (60-115) mg/dL Lactic Acid (0.5-2.0) mmol/L Lactic Acid F/U @ 2Hr (0.5-2.0) mmol/L Calcium (8.4-10.2) mg/dL Phosphorus (2.7-4.5) mg/dL Total Bilirubin (0.0-1.0) mg/dL Direct Bilirubin (0.0-0.5) mg/dL AST (5-31) U/L ALT (0-31) U/L Alkaline Phosphatase (39-117) U/L Troponin I High Sens (<3.5-17.0) ng/L B-Natriuretic Peptide 1252 H (<100) pg/mL Total Protein (6.5-8.0) g/dL Albumin (3.5-5.0) g/dL COVID-19 (DONTE) (Negative) COVID-19 Clin Com Influenza Type A (WILMER) Negative (Negative) Influenza Type B (WILMER) Negative (Negative) Influenza A & B Note See Note 10/04/22 Range/Units 21:26 WBC (4.8-10.8) X10*3/uL RBC (4.20-5.50) X10*6/uL Hgb (12.0-16.0) g/dl Hct (37.0-47.0) % MCV (80.0-98.0) fL MCH (27.0-33.0) pg MCHC (31.0-35.0) g/dl RDW (11.0-16.0) % Plt Count (160-400) X10*3/uL MPV (9.4-12.3) fL Immature Gran % (Auto) (0.0-0.4) % Neut % (Auto) (45-73) % Lymph % (Auto) (20-40) % Banks % (Auto) (2-11) % Eos % (Auto) (0-4) % Baso % (Auto) (0-2) % Lymph # (Auto) (1.2-4.9) X10*3/uL Banks # (Auto) (0.1-1.2) X10*3/uL Eos # (Auto) (0.0-0.4) X10*3/uL Baso # (Auto) (0.0-0.2) X10*3/uL Abs Immat Gran (auto) (0.00-0.03) X10*3/uL Absolute Neuts (auto) (2.0-8.3) x10*3/uL Absolute Nucleated RBC (0.0-0.012) X10*3/uL Nucleated RBC % (auto) (0.0-0.2) /100WBC PT (10.0-13.1) SEC INR (0.9-1.1) VBG pH (7.32-7.43) VBG pCO2 mmHg VBG pO2 mmHg VBG HCO3 (22-26) mmol/L VBG O2 Saturation % VBG Base Excess mmol/L Sodium (135-145) mmol/L Potassium (3.3-5.1) mmol/L Chloride (96-108) mmol/L Carbon Dioxide (22-29) mmol/L Anion Gap (12-20) BUN (9-16) mg/dL Creatinine (0.5-1.4) mg/dL Estim Creat Clear Calc Estimated GFR Random Glucose (60-115) mg/dL Lactic Acid (0.5-2.0) mmol/L Lactic Acid F/U @ 2Hr 2.0 (0.5-2.0) mmol/L Calcium (8.4-10.2) mg/dL Phosphorus (2.7-4.5) mg/dL Total Bilirubin (0.0-1.0) mg/dL Direct Bilirubin (0.0-0.5) mg/dL AST (5-31) U/L ALT (0-31) U/L Alkaline Phosphatase (39-117) U/L Troponin I High Sens (<3.5-17.0) ng/L B-Natriuretic Peptide (<100) pg/mL Total Protein (6.5-8.0) g/dL Albumin (3.5-5.0) g/dL COVID-19 (DONTE) (Negative) COVID-19 Clin Com Influenza Type A (WILMER) (Negative) Influenza Type B (WILMER) (Negative) Influenza A & B Note Critical Care Time Critical Care Time Critical Care Time: Yes Total Critical Care Time: 120 Attestation: I have personally provided critical care time. Time includes review of lab data, radiology results, discussion with consultants, and monitoring for potential decompensation. Intervention performed as documented. Discharge Plan Discharge Patient Disposition: Admitted As Inpatient Prescriptions: No Action amlodipine 5 mg tablet 1 tab PO DAILY fluticasone furoate-vilanterol [Breo Ellipta] 100-25 mcg/dose Blister With Device 1 puff inhalation RDAILY Qty: 1 0RF guaifenesin [Mucinex] 600 mg Tablet Extended Release 12hr 600 mg PO BID Qty: 20 0RF albuterol sulfate 2.5 mg /3 mL (0.083 %) solution for nebulization 1 vial inhalation Q4H PRN (Reason: Shortness Of Breath) docusate sodium 100 mg Capsule 100 mg PO BID albuterol sulfate 90 mcg/actuation Hfa Aerosol Inhaler 2 puff INHALATION QID PRN (Reason: Shortness Of Breath) metoprolol tartrate 25 mg tablet 0.5 tab PO BID buspirone 5 mg tablet 2 tab PO BID PRN (Reason: Anxiety) doxycycline hyclate 100 mg capsule 1 cap PO BID Rx Instructions: 10/04/22 - start of 8 day Tx tizanidine 4 mg tablet 1 tab PO DAILY tramadol 50 mg tablet 1 tab PO BID PRN (Reason: Pain) losartan 25 mg tablet 1 tab PO DAILY torsemide 20 mg tablet 20 mg PO DAILY aspirin 81 mg Tablet,Delayed Release (Dr/Ec) 81 mg PO MOWEFR@2100 cholecalciferol (vitamin D3) [Vitamin D3] 10 mcg (400 unit) Tablet 10 mcg PO BEDTIME B-complex with vitamin C [Super B Complex + C] Tablet 1 tab PO BEDTIME Fish Oil (with DHA-EPA) Capsule 1 cap PO BEDTIME lutein 20 mg Capsule 20 mg PO BEDTIME Rx Instructions: give with meal/snack melatonin 5 mg Tablet 5 mg PO BEDTIME PRN (Reason: Insomnia) atorvastatin 20 mg tablet 20 mg PO BEDTIME omeprazole 20 mg capsule,delayed release(DR/EC) 20 mg PO DAILY@0630
[2022-10-04] MEDS: Magnesium Sulfate/H2O 2 GM/50 ML PIGGYBACK IV (18:14)
[2022-10-04] MEDS: methylPREDNISolone Sod Succ 125 MG/2 ML VIAL IVPUSH (18:14)
[2022-10-04] MEDS: 0.9 % Sodium Chloride 1,000 ML 999 ML IVCONT (18:17)
[2022-10-04 18:18] LABS: MANUAL DIFF FLAG NO
[2022-10-04 18:21] LABS: Basophils Percent Auto 0.3 % (0-2); Eosinophils Absolute Auto 0.2 X10*3/uL (0.0-0.4); Eosinophils Percent Auto 1.3 % (0-4); Hematocrit 42.8 % (37.0-47.0); Hemoglobin 12.9 g/dl (12.0-16.0); Imm Gran Abs Auto 0.11 X10*3/uL (0.00-0.03); Imm Gran Pct Auto 0.8 % (0.0-0.4); Lymphocytes Absolute Auto 1.2 X10*3/uL (1.2-4.9); Lymphocytes Percent Auto 8.2 % (20-40); Mean Corpuscular HGB Conc 30.1 g/dl (31.0-35.0); Mean Corpuscular Hemoglobin 29.8 pg (27.0-33.0); Mean Corpuscular Volume 98.8 fL (80.0-98.0); Mean Platelet Volume 11.3 fL (9.4-12.3); Monocytes Absolute Auto 0.9 X10*3/uL (0.1-1.2); NRBC Pct Auto 0.2 /100WBC (0.0-0.2); Neutrophils Absolute Auto 12.1 x10*3/uL (2.0-8.3); Neutrophils Percent Auto 83.4 % (45-73); Platelet Count 222 X10*3/uL (160-400); Red Blood Count 4.33 X10*6/uL (4.20-5.50); Red Cell Distribution Width 16.3 % (11.0-16.0); White Blood Count 14.5 X10*3/uL (4.8-10.8)
[2022-10-04 18:25] LABS: Venous Blood Gas Refer to POC result
[2022-10-04 18:25] LABS: VBG Base Excess -1.4 mmol/L; VBG HCO3 28 mmol/L (22-26); VBG pCO2 67 mmHg; VBG pH 7.22 (7.32-7.43); VBG pO2 34 mmHg
[2022-10-04] MEDS: Albuterol Sulfate (0.083%) 2.5 MG/3 ML VIAL.NEB 10 MG INHALE (18:25)
[2022-10-04 18:26] VITALS: PULSE 56; RESP 17; O2SAT 91
[2022-10-04] MEDS: cefTRIAXone sodium 1 GM in 0.9 % Sodium Chloride 50 ML IV (18:26)
[2022-10-04 18:33] LABS: INTERNATIONAL NORM RATIO 1.3 (0.9-1.1); Prothrombin Time 15.5 SEC (10.0-13.1)
[2022-10-04] MEDS: Azithromycin 500 MG in 0.9 % Sodium Chloride 250 ML 125 MG IV (18:40)
[2022-10-04 18:43] LABS: COVID-19 Test Negative (Negative); IDNOW Serial# 55D5AD1C
[2022-10-04 18:46] LABS: Alanine Aminotransferase 1770 U/L (0-31); Albumin Level 3.4 g/dL (3.5-5.0); Alkaline Phosphatase 166 U/L (39-117); Anion Gap 18 (12-20); Aspartate Amino Transferase 4065 U/L (5-31); Bilirubin Direct 0.5 mg/dL (0.0-0.5); Bilirubin Total 0.7 mg/dL (0.0-1.0); Blood Urea Nitrogen 35 mg/dL (9-16); Calcium 9.3 mg/dL (8.4-10.2); Carbon Dioxide 28 mmol/L (22-29); Chloride 98 mmol/L (96-108); Creatinine Clr Calc Pharmacy 22.3; Estimated Glomerular Filt Rate 17; Glucose Random 160 mg/dL (60-115); Potassium 5.6 mmol/L (3.3-5.1); Sodium 138 mmol/L (135-145); Total Protein 6.3 g/dL (6.5-8.0)
[2022-10-04 18:50] LABS: B Type Natriuretic Peptide 1252 pg/mL (<100)
[2022-10-04 18:53] LABS: Troponin-I High Sensitivity 2530.8 ng/L (<3.5-17.0)
[2022-10-04 19:16] LABS: IDNOW Serial# BCCEAD1C; Influenza A Negative (Negative); Influenza B2 Negative (Negative)
[2022-10-04 20:17] LABS: Reflex Lactate? Lactic Acid Added
[2022-10-04 20:30] VITALS: BP 90/45; PULSE 65; RESP 22; O2SAT 96
--- NOTE | 2022-10-04 20:56 | ECG_ITS ---
Test Reason : REPEAT/LOW BP Blood Pressure : / mmHG Vent. Rate : 064 BPM Atrial Rate : 064 BPM P-R Int : 168 ms QRS Dur : 110 ms QT Int : 454 ms P-R-T Axes : 076 004 -28 degrees QTc Int : 468 ms Normal sinus rhythm Low voltage QRS Incomplete right bundle branch block Nonspecific T wave abnormality Abnormal ECG When compared with ECG of 04-OCT-2022 18:10, No significant change was found Referred By: Zulema Brownlee Electronically Signed By:Alfonso Abel
[2022-10-04 21:14] VITALS: PULSE 63; RESP 22; O2SAT 96
[2022-10-04] MEDS: Diatrizoate Meglumine, Sodium 30 ML SOLUTION PO (21:50)
--- NOTE | 2022-10-04 22:12 | PHA.MEDREC ---
Pharmacy Consult ? Medication Reconciliation Pharmacy has completed the medication reconciliation. Called patient's daughters Joselyn ([phone]) and Bethany ([phone]) to confirm meds.
[2022-10-04 22:16] VITALS: BMI 43.9
[2022-10-04] MEDS: Aspirin 300 MG SUPP.RECT PR (22:21)
[2022-10-04 22:40] VITALS: BP 79/46; PULSE 63
--- NOTE | 2022-10-04 23:00 | PM.CCHP ---
History of Present Illness Date of Service: 10/04/22 Attending physician on admission: Jose Alfredo Navas Chief Complaint: shortness of breath Mrs. Millan is a 77-year-old female, recent 60+ pack-year smoker, quit August of 2020 with a PMH of Acute and chronic respiratory failure with hypercapnia, Supplemental oxygen dependent, WOJCIECH (obstructive sleep apnea), Cholecystitis, gallstones,Pancreatitis, COPD, Emphysema, Cor pulmonale, chronic, Diastolic CHF with preserved left ventricular function, Hyperkalemia and Leukocytosis.? She was hospitalized here at [facility] [place] in December of this year for gallstone pancreatitis/cholecystitis. She was treated conservatively with IV fluids, pain management and a clear liquid diet. ? The? general surgeon? had suggested an MRCP to assess for choledocholithiasis,? however due to her fear of intubation she refused to move forward with cholecystectomy.? Additionally, she was deemed high risk for surgery? by pulmonology though? her respiratory status was not an absolute contraindication at that time. Tonight, she was BIBA to the emergency room complaining of shortness of breath for couple of days.? She had been using her albuterol at home without any relief.? When EMS arrived to the patient's residence, her oxygen saturation was 80% on room air.? They gave her a DuoNeb. On arrival, her oxygen saturation dropped to 79% during transfer to the stretcher.?She was started on BiPAP, was given azithromycin and ceftriaxone empirically for possible COPD exacerbation and her breathing became more comfortable.? Labs signigicant for WBC 14.5, potassium 5.3, BUN/creat 37/2.7 (baseline 22-23/0.6-0.7), BNP 1252.? Lactic acid 3.0, repeat lactic 2.0, AST >4202, ALT 2325, Alk phos 166, Trop 3012, VBG 7.28/44/121/21,? COVID-19 and influenza tested negative.? Chest x-ray showed Cardiomegaly with mild CHF and suspected underlying mild interstitial changes. Dr. Abel was consulted? by the ED physician regarding the EKG and labs; does not seem to be cardiac etiology, however, there is clearly some major underlying issue. Though there is new onset CHF, renal failure and hepatic failure, the etiology remains unclear. After a few hours of being on the BiPap, her blood pressure started dropping to the low 70?s. She denied chest pain. She was started on Levophed and a Heparin drip and admitted to the ICU. Review of Systems Review of Systems: Yes all other systems are reviewed and are negative [facility] Past Medical History Medical History (Updated 10/05/22 @ 03:49 by Elizabeth Segal NP) Acute and chronic respiratory failure with hypercapnia Cholecystitis COPD (chronic obstructive pulmonary disease) Cor pulmonale, chronic Diastolic CHF with preserved left ventricular function, NYHA class 2 Dilated cbd, acquired Emphysema lung Gallstone Hyperkalemia Leukocytosis WOJCIECH (obstructive sleep apnea) Pancreatitis Supplemental oxygen dependent Functional capacity: independent ambulation Social History Social History Household Members: Children Housing: House Do you presently have visiting nurse or other home services: No Unable to assess alcohol history related to: Unknown Alcohol intake: never Patient Tobacco Use Status: Former Tobacco user Tobacco use type: Cigarette Smoked in Last 30 Days: No Use of substances other than those prescribed or required for medical reasons: No Substance Use Type: Unknown Currently Displaying Signs/Symptoms of Drug Intoxication Withdrawal: No Any prior treatment program specific to substance use: No Have you been hit, kicked, punched, or otherwise hurt by someone within the past year? If so, by whom?: No Do you feel safe in your current relationship?: Yes Is there a partner from a previous relationship who is making you feel unsafe now?: No Are you made to feel afraid or neglected: No Advance Directives: No Advance Directives Information Provided: Yes Do you have thoughts of harming others: None Do you have a plan to hurt others: No Plan Nutrition Risks: No Nutritional Risk Patient : No service: No Current occupational status: retired Travel History Ebola Risk: Travel/Contact With Anyone From Affected Area/s: No Meds Allergies Allergy/AdvReac Type Severity Reaction Status Date / Time ceftriaxone [From Rocephin] Allergy Unknown Unknown Verified 10/05/22 01:45 vancomycin Allergy Unknown itch, Verified 10/05/22 01:45 rash, hives Active Medications: Current Medications Heparin Sodium (Porcine) (Heparin Sodium,Porcine 5,000 Unit/Ml Vial) 4,900 unit 40 unit/kg (4900 unit) IVPUSH PROTOCOL BOLUS PRN; Protocol PRN Reason: 40 unit/kg - Heparin Protocol Heparin Sodium (Porcine) (Heparin Sodium,Porcine 5,000 Unit/Ml Vial) 9,700 unit 80 unit/kg (9700 unit) IVPUSH PROTOCOL BOLUS PRN; Protocol PRN Reason: 80 unit/kg - Heparin Protocol Norepinephrine Bitartrate (Levophed) 8 mg in 250 mls @ 0 mls/hr IVCONT .Q0M KALPESH; Protocol Last Admin: 10/04/22 22:40 Dose: 0.05 mcg/kg/min, 11.2 mls/hr Heparin Sodium/Sodium Chloride (Heparin Sodium,Porcine/1/2ns) 25,000 unit in 250 mls @ 0 mls/hr IVCONT .Q0M KALPESH; Protocol Pharmacy Consult (Consult Rx Perform Med Rec) 1 each MISCELLANE ONCE PRN PRN Reason: Consult order Home Medications Medication Instructions Recorded Confirmed Last Taken Type atorvastatin 20 mg tablet 20 mg PO BEDTIME 10/13/20 10/04/22 10/03/22 History omeprazole 20 mg capsule,delayed 20 mg PO DAILY@0630 10/13/20 10/04/22 10/04/22 History release amlodipine 5 mg tablet 1 tab PO DAILY 10/19/20 10/04/22 10/04/22 History albuterol sulfate 2.5 mg/3 mL 1 vial inhalation Q4H PRN 01/07/22 10/04/22 01/07/22 History (0.083 %) solution for nebulization Shortness Of Breath albuterol sulfate 90 mcg/actuation 2 puff inhalation QID PRN 01/07/22 10/04/22 01/07/22 History aerosol inhaler Shortness Of Breath docusate sodium 100 mg capsule 100 mg PO BID 01/07/22 10/04/22 10/04/22 09:00 History metoprolol tartrate 25 mg tablet 0.5 tab PO BID 01/07/22 10/04/22 10/04/22 09:00 History B-complex with vitamin C 1 tab PO BEDTIME 10/04/22 10/04/22 10/03/22 History aspirin 81 mg tablet,delayed 81 mg PO MOWEFR@2100 10/04/22 10/04/22 10/03/22 History release buspirone 5 mg tablet 2 tab PO BID PRN Anxiety 10/04/22 10/04/22 10/04/22 09:00 History cholecalciferol (vitamin D3) 10 10 mcg PO BEDTIME 10/04/22 10/04/22 10/03/22 History mcg (400 unit) tablet (Vitamin D3) docosahexaenoic acid (dha)-epa 1 cap PO BEDTIME 10/04/22 10/04/22 10/03/22 History capsule doxycycline hyclate 100 mg capsule 1 cap PO BID 10/04/22 10/04/22 10/04/22 09:00 History losartan 25 mg tablet 1 tab PO DAILY 10/04/22 10/04/22 10/04/22 History lutein 20 mg capsule 20 mg PO BEDTIME 10/04/22 10/04/22 10/03/22 History melatonin 5 mg tablet 5 mg PO BEDTIME PRN Insomnia 10/04/22 10/04/22 10/03/22 History tizanidine 4 mg tablet 1 tab PO DAILY 10/04/22 10/04/22 10/04/22 History torsemide 20 mg tablet 20 mg PO DAILY 10/04/22 10/04/22 10/04/22 History tramadol 50 mg tablet 1 tab PO BID PRN Pain 10/04/22 10/04/22 Unknown History Physical Exam Vital Signs: Vital Signs: Last Vital Signs Pulse 63 10/04/22 22:40 Resp 22 H 10/04/22 21:14 BP 79/46 L 10/04/22 22:40 Pulse Ox 96 10/04/22 20:30 O2 Del Method 10/04/22 20:30 FiO2 35 10/04/22 17:53 BMI result Body Mass Index 43.9 Const: General: cooperative, no acute distress and alert Nutritional Appearance: obese Orientation/consciousness: patient oriented x3 (answering appropriately.) Limitations: no limitations HEENT: Head: Yes normocephalic and Yes atraumatic General nose exam: Normal external nose present (Nares patent, septum midline, sinuses nontender bilaterally.) Mouth: Normal oral and palatal mucosa present (No thrush, tongue in midline, mucosa moist.) Throat: Yes other (No erythema, no exudate.) Neck: Neck: Yes normal visual inspection and Yes supple (trachea midline.) Carotids: normal carotid upstroke Resp: Effort & Inspection: able to speak in complete sentences, labored and uses accessory muscles Auscultation: rhonchi throughout Cardio: Jugular venous distension: no JVD Rate: regular rate Rhythm: regular rhythm Heart sounds: no gallops, no murmurs and no rubs Peripheral pulses: Peripheral pulses 2+ throughout GI: Palpation (GI): Soft to palpation (nondistended.) and nontender Skin: General skin exam: no rashes or lesions noted and dry skin Neuro: General: patient oriented x3 (answering appropriately.) Extrem: General: Yes full ROM, Yes capillary refill normal and Yes no clubbing, cyanosis or edema Psych: Affect: normal affect Attitude: cooperative Results Labs CBC and Chem 7: 10/04/22 23:21 10/04/22 23:05 Labs: Laboratory Results - last 24 hr 10/04/22 10/04/22 10/04/22 18:10 18:10 18:10 MCV 98.8 H MCH 29.8 MCHC 30.1 L RDW 16.3 H Plt Count 222 MPV 11.3 Immature Gran % (Auto) 0.8 H Neut % (Auto) 83.4 H Lymph % (Auto) 8.[address] [place] % (Auto) 6.0 Eos % (Auto) 1.3 Baso % (Auto) 0.3 Lymph # (Auto) 1.2 [place] # (Auto) 0.9 Eos # (Auto) 0.2 Baso # (Auto) 0.0 Abs Immat Gran (auto) 0.11 H Absolute Neuts (auto) 12.1 H Absolute Nucleated RBC 0.030 H Nucleated RBC % (auto) 0.2 PT 15.5 H INR 1.3 H VBG pH VBG pCO2 VBG pO2 VBG HCO3 VBG O2 Saturation VBG Base Excess Anion Gap 18 Estim Creat Clear Calc 22.3 Estimated GFR 17 Random Glucose 160 H Lactic Acid Lactic Acid F/U @ 2Hr Calcium 9.3 D Phosphorus 7.0 H Total Bilirubin 0.7 Direct Bilirubin 0.5 AST 4065 H ALT 1770 H Alkaline Phosphatase 166 H Troponin I High Sens B-Natriuretic Peptide Total Protein 6.3 L Albumin 3.4 L COVID-19 (DONTE) COVID-19 Clin Com Influenza Type A (WILMER) Influenza Type B (WILMER) Influenza A & B Note 10/04/22 10/04/2222 18:10 18:10 18:10 MCV MCH MCHC RDW Plt Count MPV Immature Gran % (Auto) Neut % (Auto) Lymph % (Auto) [place] % (Auto) Eos % (Auto) Baso % (Auto) Lymph # (Auto) [place] # (Auto) Eos # (Auto) Baso # (Auto) Abs Immat Gran (auto) Absolute Neuts (auto) Absolute Nucleated RBC Nucleated RBC % (auto) PT INR VBG pH VBG pCO2 VBG pO2 VBG HCO3 VBG O2 Saturation VBG Base Excess Anion Gap Estim Creat Clear Calc Estimated GFR Random Glucose Lactic Acid 3.0 H* Lactic Acid F/U @ 2Hr Calcium Phosphorus Total Bilirubin Direct Bilirubin AST ALT Alkaline Phosphatase Troponin I High Sens 2530.8 H* B-Natriuretic Peptide Total Protein Albumin COVID-19 (DONTE) Negative COVID-19 Clin Com See Note Influenza Type A (WILMER) Influenza Type B (WILMER) Influenza A & B Note 10/04/22 10/04/22 10/04/22 18:10 18:15 18:47 MCV MCH MCHC RDW Plt Count MPV Immature Gran % (Auto) Neut % (Auto) Lymph % (Auto) [place] % (Auto) Eos % (Auto) Baso % (Auto) Lymph # (Auto) [place] # (Auto) Eos # (Auto) Baso # (Auto) Abs Immat Gran (auto) Absolute Neuts (auto) Absolute Nucleated RBC Nucleated RBC % (auto) PT INR VBG pH 7.22 L VBG pCO2 67 VBG pO2 34 VBG HCO3 28 H VBG O2 Saturation 42.0 VBG Base Excess -1.4 Anion Gap Estim Creat Clear Calc Estimated GFR Random Glucose Lactic Acid Lactic Acid F/U @ 2Hr Calcium Phosphorus Total Bilirubin Direct Bilirubin AST ALT Alkaline Phosphatase Troponin I High Sens B-Natriuretic Peptide 1252 H Total Protein Albumin COVID-19 (DONTE) COVID-19 Clin Com Influenza Type A (WILMER) Negative Influenza Type B (WILMER) Negative Influenza A & B Note See Note 10/04/22 21:26 MCV MCH MCHC RDW Plt Count MPV Immature Gran % (Auto) Neut % (Auto) Lymph % (Auto) [place] % (Auto) Eos % (Auto) Baso % (Auto) Lymph # (Auto) [place] # (Auto) Eos # (Auto) Baso # (Auto) Abs Immat Gran (auto) Absolute Neuts (auto) Absolute Nucleated RBC Nucleated RBC % (auto) PT INR VBG pH VBG pCO2 VBG pO2 VBG HCO3 VBG O2 Saturation VBG Base Excess Anion Gap Estim Creat Clear Calc Estimated GFR Random Glucose Lactic Acid Lactic Acid F/U @ 2Hr 2.0 Calcium Phosphorus Total Bilirubin Direct Bilirubin AST ALT Alkaline Phosphatase Troponin I High Sens B-Natriuretic Peptide Total Protein Albumin COVID-19 (DONTE) COVID-19 Clin Com Influenza Type A (WILMER) Influenza Type B (WILMER) Influenza A & B Note ECG ECG interpretation date: 10/04/22 Prior ECG tracings: available for review Interpretation: Normal sinus rhythm Rate : 64 BPM AK interval 168 ms No T wave elevations. Imaging Radiologist's Impressions: Impressions Chest X-Ray 10/04/22 18:22 IMPRESSION: 1. Cardiomegaly with mild CHF. Suspect underlying mild interstitial changes. 2. Calcified right thyroid nodule, stable. Assessment and Plan (1) Hypoxemic respiratory failure, chronic: Status: Acute (2) Acute and chronic respiratory failure with hypoxia: Status: Acute (3) Dyspnea on exertion: Status: Acute (4) COPD (chronic obstructive pulmonary disease): Status: Acute (5) Hyperkalemia: Status: Acute (6) Leukocytosis: Status: Acute (7) Hypotension: Status: Acute (8) YUDELKA (acute kidney injury): Status: Acute (9) Ischemia reperfusion injury of liver: Status: Acute Plan Plan: 77-year-old female with Acute and chronic respiratory failure, history of cholecystitis, gallstones, pancreatitis, presented for shortness of breath found to have YUDELKA, and elevated transaminase levels. Neuro:? No Acute issues. Cardiac:? ?Hypotension. No T wave elevations. Cardiomegaly with mild CHF noted on xray. Bumex given. Continue Levophed. 2D echocardiogram?in AM. Appreciate cardiology input. Pulmonary: Acute and chronic respiratory failure with hypoxia. WOJCIECH. No consolidation or effusion seen. Interstitial changes noted on xray. Now off BiPap, on 5L NC. Sputum sent. Renal:? Acute kidney injury possibly due to volume disruption. Low urine output. Continue to monitor renal indices and urine output. Endo:? No acute issues.? GI:?Hepatic ischemia. Unclear etiology; unable to perform CT with contrast due underlying CHF. Continue to monitor hepatic enzymes. No coagulopathy. ID:? Leukocytosis. No signs of severe sepsis. No fluid resuscitation due to underlying CHF. Treated empirically with zyvox, zosyn. Heme/Onc:? No acute issues. Psych:? No acute issues. Miscellaneous:? No acute issues. Prophylaxis:? Heparin drip, Diet: NPO Time Spent With Patient Time: Total time managing care of this patient today ____ minutes.
[2022-10-04 23:28] LABS: Hematocrit 44.2 % (37.0-47.0); Hemoglobin 13.4 g/dl (12.0-16.0); Mean Corpuscular HGB Conc 30.3 g/dl (31.0-35.0); Mean Corpuscular Hemoglobin 29.3 pg (27.0-33.0); Mean Corpuscular Volume 96.5 fL (80.0-98.0); Mean Platelet Volume 11.3 fL (9.4-12.3); NRBC Pct Auto 0.3 /100WBC (0.0-0.2); Platelet Count 210 X10*3/uL (160-400); Red Blood Count 4.58 X10*6/uL (4.20-5.50)
[2022-10-04 23:29] LABS: ABG Base Excess -5.5 mmol/L; ABG HCO3 21 mmol/L (22-26); ABG pCO2 44 mmHg (32-45); ABG pH 7.28 (7.35-7.45); ABG pO2 121 mmHg (83-108); Venous Blood Gas Refer to POC result
[2022-10-04 23:30] LABS: Alanine Aminotransferase 2325 U/L (0-31); Albumin Level 3.7 g/dL (3.5-5.0); Alkaline Phosphatase 166 U/L (39-117); Anion Gap 17 (12-20); Blood Urea Nitrogen 37 mg/dL (9-16); Calcium 9.1 mg/dL (8.4-10.2); Carbon Dioxide 25 mmol/L (22-29); Chloride 100 mmol/L (96-108); Creatinine Clr Calc Pharmacy 21.7; Estimated Glomerular Filt Rate 17; Glucose Random 158 mg/dL (60-115); Potassium 5.3 mmol/L (3.3-5.1); Sodium 137 mmol/L (135-145); Total Protein 6.9 g/dL (6.5-8.0)
[2022-10-04 23:34] LABS: INTERNATIONAL NORM RATIO 1.3 (0.9-1.1)
[2022-10-04 23:37] LABS: PTT Heparin Drip 31.1 SEC (53-77.9)
--- NOTE | 2022-10-04 23:44 | PC.NURSE ---
Patient alert and oriented x 2-3. waxes and wanes. Patient denies chest pain. tele: sinus rythym Patient came in on 6l via nasal cannula MD ordered bipap placed by respiratory. 16f Javed placed clear dark yellow urine. Patient has 18g in right AC and 20g in Left AC. Patient ambulates with walker at home. Report called to ICU will transport after Ct scan to ICU.
[2022-10-04 23:46] VITALS: BP 123/56; PULSE 71; RESP 22; TEMP 36.7; O2SAT 92
[2022-10-04 23:50] LABS: Aspartate Amino Transferase > 4202 U/L (5-31)
[2022-10-05] VITALS (34 sets, daily range): BP systolic 102–152; BP diastolic 35–82; PULSE 65–96; RESP 14–28; TEMP 36.8–37.6; O2SAT 88–95; BMI 41.7
[2022-10-05] MEDS: Heparin Sodium,Porcine/1/2NS 25,000 UNIT/250 ML IV.SOLN 14.58 UNIT IVCONT (00:18)
[2022-10-05 00:54] LABS: Troponin-I High Sensitivity 3012.1 ng/L (<3.5-17.0)
[2022-10-05 01:02] LABS: Bilirubin Total 0.6 mg/dL (0.0-1.0)
[2022-10-05] MEDS: Piperacillin Sodium/Tazobactam 4.5 GM in 0.9 % Sodium Chloride 100 ML IV ×2 (02:42→10:17)
[2022-10-05 02:43] LABS: Magnesium 3.3 mg/dL (1.6-2.6); Phosphorus 6.8 mg/dL (2.7-4.5)
[2022-10-05] MEDS: Linezolid/D5W 600 MG/300 ML PIGGYBACK 300 MG IV (02:53)
--- NOTE | 2022-10-05 04:19 | W.PM.CCHP ---
Procedures Date of Service Date of Service: 10/05/22 Central Line Placement Right IJ: Central Line Comments: The right neck was widely prepped and draped in full sterile fashion. Under US guidance, the right IJ vein was cannulated on the 1st pass of the 18 g thin wall needle, with return of dark, nonpulsatile blood. The wire was threaded without incident. The 16 cm x 7 Egyptian triple-lumen CVC was advanced into the vein up to the hub via the Seldinger technique without incident. There was good blood return x3. The catheter was sutured x2 and a Biopatch and dry sterile dressing were applied. Postop chest x-ray showed the line in good position with no pneumothorax. The patient tolerated the procedure well with no complications. Consent for Procedure: Emergent-no informed consent obtained Time out performed: Yes Sterile Technique Used: Yes Patient placed on monitor/pulse ox: Yes MD prep: mask, gown and gloves Central line prep: Chlorhexidine scrub and sterile drapes applied Local anesthesia used: lidocaine 1% Amount of anesthesia used (ml): 3 Ultrasound used for placement: Yes Central line lumen inserted: triple Post procedure: sutured in place, good blood return, all ports aspirated, flushed, capped and sterile dressing applied Post procedure x-ray: tip of catheter in good position and no pneumothorax seen Patient tolerated procedure: well and no complications Complications: none
[2022-10-05] MEDS: Albuterol/Iprat 2.5/0.5MG 3 ML AMPUL.NEB INHALE ×5 (04:25→20:20)
[2022-10-05] MEDS: Bumetanide 1 MG/4 ML VIAL IVPUSH ×2 (04:31→16:35)
[2022-10-05 05:14] LABS: VBG HCO3 24 mmol/L (22-26); VBG pCO2 54 mmHg; VBG pH 7.26 (7.32-7.43); VBG pO2 58 mmHg
[2022-10-05 05:38] LABS: Hematocrit 42.1 % (37.0-47.0); Mean Corpuscular HGB Conc 30.9 g/dl (31.0-35.0); Mean Corpuscular Hemoglobin 29.5 pg (27.0-33.0); Mean Corpuscular Volume 95.7 fL (80.0-98.0); Mean Platelet Volume 11.3 fL (9.4-12.3); NRBC Pct Auto 0.7 /100WBC (0.0-0.2); Platelet Count 217 X10*3/uL (160-400); Red Cell Distribution Width 15.8 % (11.0-16.0); White Blood Count 16.7 X10*3/uL (4.8-10.8)
[2022-10-05 05:39] LABS: Basophils Percent Auto 0.2 % (0-2); Hematocrit 42.6 % (37.0-47.0); Imm Gran Abs Auto 0.27 X10*3/uL (0.00-0.03); Imm Gran Pct Auto 1.6 % (0.0-0.4); Lymphocytes Absolute Auto 0.8 X10*3/uL (1.2-4.9); Lymphocytes Percent Auto 4.7 % (20-40); MANUAL DIFF FLAG SCAN; Mean Corpuscular HGB Conc 30.5 g/dl (31.0-35.0); Mean Corpuscular Hemoglobin 29.2 pg (27.0-33.0); Mean Corpuscular Volume 95.7 fL (80.0-98.0); Mean Platelet Volume 11.3 fL (9.4-12.3); Monocytes Absolute Auto 0.4 X10*3/uL (0.1-1.2); Monocytes Percent Auto 2.3 % (2-11); NRBC Pct Auto 0.6 /100WBC (0.0-0.2); Neutrophils Percent Auto 91.2 % (45-73); Platelet Count 220 X10*3/uL (160-400); Red Blood Count 4.45 X10*6/uL (4.20-5.50); Red Cell Distribution Width 15.7 % (11.0-16.0); SCAN SMEAR FLAG 1; White Blood Count 16.5 X10*3/uL (4.8-10.8)
[2022-10-05 05:53] LABS: Alanine Aminotransferase 2580 U/L (0-31); Albumin Level 3.6 g/dL (3.5-5.0); Alkaline Phosphatase 185 U/L (39-117); Anion Gap 18 (12-20); Bilirubin Total 0.5 mg/dL (0.0-1.0); Blood Urea Nitrogen 40 mg/dL (9-16); Carbon Dioxide 25 mmol/L (22-29); Chloride 98 mmol/L (96-108); Creatinine Clr Calc Pharmacy 21.5; Estimated Glomerular Filt Rate 17; Glucose Random 186 mg/dL (60-115); INTERNATIONAL NORM RATIO 1.3 (0.9-1.1); Magnesium 3.2 mg/dL (1.6-2.6); Phosphorus 6.1 mg/dL (2.7-4.5); Potassium 5.3 mmol/L (3.3-5.1); Prothrombin Time 15.6 SEC (10.0-13.1); Sodium 136 mmol/L (135-145); Total Protein 6.6 g/dL (6.5-8.0)
[2022-10-05 05:58] LABS: B Type Natriuretic Peptide 1082 pg/mL (<100)
[2022-10-05 06:05] LABS: SLIDE REVIEW VERIFIED
[2022-10-05 06:08] LABS: Troponin-I High Sensitivity 2458.9 ng/L (<3.5-17.0)
[2022-10-05 06:18] LABS: Appearance Urine Cloudy; Color Urine Dark Yellow; Glucose Urine UA Negative (Negative); Leukocyte Esterase Urine Trace (Negative); Nitrite Urine Negative (Negative); Specific Gravity - Urine >= 1.030 (1.005-1.025); UMIC TRIGGER UA YES; Urine Blood Large (3+) (Negative); Urine Ketones Trace mg/dL (Negative); Urine Protein 30 (1+) mg/dL (Neg-Trace)
[2022-10-05 06:22] LABS: Aspartate Amino Transferase > 4202 U/L (5-31)
[2022-10-05 06:32] LABS: Bacteria Urine 1+ (None Seen); Hyaline Casts Urine >20 /LPF (0-2); RBC Urine >20 /HPF (0-2); WBC Urine 0-5 /HPF (0-5)
--- NOTE | 2022-10-05 07:00 | CA_ITS ---
Transthoracic Echocardiogram Patient (Last, First, Middle): Macy Millan M Gender: Female Date of : 1945 Age: 77 Procedure Date: 10/05/2022 Procedure Type: Transthoracic Echocardiogram Location: ICU Height: 165.1 cm Weight: 115.21 kg BSA: 2.19 m2 Heart Rate: bpm BP: 159 / 79 mmHg Network Pricing Consultant: SB Referring MD: Jose Alfredo Navas MD Sales Expert [employer]: Cory Mckeon MD Symptoms: ischemia heart disease Study Quality: Technically Difficult, ECG Rhythm: Sinus Conclusions: - 1. Technically limited study despite use of contrast agent 2. Normal LV systolic function with grade 2 diastolic dysfunction 3. Severe biatrial enlargement 4. Mild aortic stenosis 5. Moderately elevated right ventricular systolic pressure and significant elevated right atrial pressures Findings Procedure Information Contrast agent, definity, is being given per protocol without apparent complications. Left Ventricle Normal left ventricular size, thickness, and systolic function. Regional wall motion abnormalities can not be excluded due to suboptimal endocardial definition. Spectral Doppler is indicative of a pseudonormal filling pattern. E/E prime ratio is >15, consistent with elevated filling pressures. Evidence suggests grade II (moderate) diastolic dysfunction. Right Ventricle There is mildly decreased right ventricular systolic function. Atria The left atrium is severely dilated. Interatrial shunt cannot be excluded. The right atrium is severely dilated. Aortic Valve There is moderate calcification of the aortic valve. There is mild aortic valve stenosis. The peak aortic gradient is 20 mmHg.The mean gradient is 8 mmHg. The aortic valve area is 1.90 cm2. There is trace (trivial) aortic valve regurgitation. Mitral Valve There is mild anterior and moderate posterior mitral leaflet thickening. There is mild mitral annular calcification. There is trace mitral valve regurgitation. There is no mitral valve stenosis. Pulmonic Valve The pulmonic valve was not well visualized. Tricuspid Valve There is mild tricuspid valve regurgitation. Significantly elevated right atrial pressure. Moderate pulmonary hypertension is present. Great Vessels The aorta was not well visualized. The pulmonary artery was not well visualized. Venous The inferior vena cava is moderately dilated and does not collapse with inspiration. Pericardium/Pleural The pericardium was not well visualized. Prior Study Comparison no previous study in the last 5 years for comparison Measurements 2D Linear Measurements IVSd: 1.12 0.6-0.9/0.6-1.0 cm LVIDd: 5.17 3.9-5.3/4.2-5.9 cm LVIDd Index: 2.36 2.4-3.2/2.2-3.1 cm/m2 LVIDs: 3.28 2.0-3.6 cm LVPWd: 1.00 0.7-1.1 cm LA Diam: 5.20 2.7-3.8/3.0-4.0 cm LAIDs Index: 2.37 1.5-2.3 cm/m2 LV Mass: 258.87 67-162/88-224 g LV Mass Index: 118.21 43-95/49-115 g/m2 LVOT Diam: 2.10 3.0+(-)1.3 cm 2D Systolic Function EF 4C: 59.50 >55% EF 2C: 59.20 >55% EF BiP: 58.20 >55% Mitral Valve MV Pk E: 1.27 MV PK A: 1.13 MV Decel Time: 133.00 E/A: 1.10 E'Lateral: 9.25 E'Medial: 6.31 E/E' Med: 20.10 E/E' Lat: 13.70 PHT: 39.00 MVA PHT: 5.64 Decel Burke: 9.57 Aortic Valve AoV Pk Maynor: 2.24 AoV Mn Maynor: 1.29 AoV VTI: 0.42 AoV Pk Grad: 20.00 Aov Mn Grad: 8.00 CONRAD Cont.VTI: 1.90 LVOT LVOT Pk Maynor: 1.39 LVOT Mn Maynor: 0.97 LVOT VTI: 0.27 LVOT Pk Grad: 8.00 LVOT Mn Grad: 4.00 LVOT Diam: 2.10 LVOT Area: 3.46 Diastolic Function MV Pk E: 1.27 MV Pk A: 1.13 E/A: 1.10 E'Medial: 6.31 E/E' Med: 20.10 E' Laterial: 9.25 E/E' Lat: 13.70 Right Ventricle TAPSE (mm): 15.30 TVS' Maynor: 12.50 Tricuspid Valve TR Pk Maynor: 3.33 TR Pk Grad: 44.00 RA Press: 15.00 RVSP: 59.00 Great Vessels Aorta Sinus of Valsalva: 3.60 2.0-3.5 cm Ao Asc: 3.20 2.1-3.4 cm Pulmonary Veins Pulm Vein S/D 1.40 Pulmonary Valve PV Pk Maynor: 1.06 Peak PV Grad: 4.00 Updated in Other Vendor System with Status of Final Cory Mckeon MD electronically signed on 10/05/2022 3:03:57 PM with status of Final
[2022-10-05 07:19] LABS: Venous Blood Gas Refer to POC result
[2022-10-05 08:52] LABS: PTT Heparin Drip 32.1 SEC (53-77.9)
[2022-10-05] MEDS: Heparin Sodium,Porcine 5,000 UNIT/ML VIAL 9700 UNIT IVPUSH (09:01)
[2022-10-05] MEDS: Acetaminophen 325 MG TABLET 650 MG PO (10:44)
--- NOTE | 2022-10-05 13:51 | MHC.CM.PN ---
Call placed to patient's daughter for CM assessment. Patient lives with 2 daughters who are her INSTRUMENTATION ENGINEER's- they care for her, bring to appts, do shopping etc. PCP- Dr. Tong. Daughter reports completing HCP @ PCP office- placed call and none on record. Pt Vax'd, no boosters. At baseline walks with walker @ home. Goals for d/c- home w/ VNA. Daughters can transport.
--- NOTE | 2022-10-05 15:10 | P.CONCA_ITS ---
History of Present Illness History of Present Illness Date of Service: 10/05/22 Requesting physician: Jose Alfredo Navas Chief complaint: NSTEMI, YUDELKA, shock liver Narrative: 77-year-old female with known history of diastolic heart failure, chronic hypoxemic respiratory failure and COPD was presenting with hypoxia. She was in congestive heart failure admission and was started on BiPAP. Subsequent to that she had hypotension. She was noted to have acute kidney injury as well as significantly elevated liver enzymes. Due to these abnormalities she was transferred to ICU and has been on Levophed. She was also noticed to have elevated high sensitivity troponin levels more than 2000. The patient is denying any chest discomfort mostly had shortness of breath which was the reason she came in. Currently on supplemental oxygen and feeling good. Denying any active issues. She is on Levophed currently. She is currently on heparin drip for NSTEMI. EKG in the ER and subsequently EKGs have not shown any dynamic changes. EKGs were quite nonspecific. Echocardiography has shown normal LV function, mildly reduced RV function, moderate pulmonary hypertension with severely increased RA pressures. [facility] Past Medical History Medical History (Updated 10/05/22 @ 19:37 by Alfonso Abel MD) Acute and chronic respiratory failure with hypercapnia Cholecystitis COPD (chronic obstructive pulmonary disease) Cor pulmonale, chronic Diastolic CHF with preserved left ventricular function, NYHA class 2 Dilated cbd, acquired Emphysema lung Gallstone Hyperkalemia Leukocytosis WOJCIECH (obstructive sleep apnea) Pancreatitis Supplemental oxygen dependent Functional capacity: independent ambulation Social History Social History Household Members: Children Housing: House Do you presently have visiting nurse or other home services: No Unable to assess alcohol history related to: Unknown Alcohol intake: never Patient Tobacco Use Status: Former Tobacco user Tobacco use type: Cigarette Smoked in Last 30 Days: No Use of substances other than those prescribed or required for medical reasons: No Substance Use Type: Unknown Currently Displaying Signs/Symptoms of Drug Intoxication Withdrawal: No Any prior treatment program specific to substance use: No Have you been hit, kicked, punched, or otherwise hurt by someone within the past year? If so, by whom?: No Do you feel safe in your current relationship?: Yes Is there a partner from a previous relationship who is making you feel unsafe now?: No Are you made to feel afraid or neglected: No Advance Directives: No Advance Directives Information Provided: Yes Do you have thoughts of harming others: None Do you have a plan to hurt others: No Plan Nutrition Risks: No Nutritional Risk Patient : No service: No Current occupational status: retired Travel History Ebola Risk: Travel/Contact With Anyone From Affected Area/s: No Meds Allergies Allergy/AdvReac Type Severity Reaction Status Date / Time ceftriaxone [From Rocephin] Allergy Unknown Unknown Verified 10/05/22 01:45 vancomycin Allergy Unknown itch, Verified 10/05/22 01:45 rash, hives Active Medications: Current Medications Acetaminophen (Acetaminophen 325 Mg Tablet) 650 mg PO Q6H PRN PRN Reason: Headache Last Admin: 10/05/22 10:44 Dose: 650 mg Albuterol/Ipratropium (Albuterol/Iprat 2.5/0.5mg 3 Ml Ampul.Neb) 3 ml INHALE RQ4H KALPESH Last Admin: 10/05/22 11:27 Dose: 3 ml Heparin Sodium (Porcine) (Heparin Sodium,Porcine 5,000 Unit/Ml Vial) 4,900 unit 40 unit/kg (4900 unit) IVPUSH PROTOCOL BOLUS PRN; Protocol PRN Reason: 40 unit/kg - Heparin Protocol Heparin Sodium (Porcine) (Heparin Sodium,Porcine 5,000 Unit/Ml Vial) 9,700 unit 80 unit/kg (9700 unit) IVPUSH PROTOCOL BOLUS PRN; Protocol PRN Reason: 80 unit/kg - Heparin Protocol Last Admin: 10/05/22 09:01 Dose: 9,700 unit Norepinephrine Bitartrate (Levophed) 8 mg in 250 mls @ 0 mls/hr IVCONT .Q0M KALPESH; Protocol Last Titration: 10/05/22 12:00 Dose: 0.03 mcg/kg/min, 6.72 mls/hr Heparin Sodium/Sodium Chloride (Heparin Sodium,Porcine/1/2ns) 25,000 unit in 250 mls @ 0 mls/hr IVCONT .Q0M KALPESH; Protocol Last Titration: 10/05/22 09:02 Dose: 12.23 units/kg/hr, 14.86 mls/hr Piperacillin Sod/Tazobactam (Sod 4.5 gm/ Sodium Chloride) 100 mls @ 200 mls/hr IV Q8H KALPESH Last Infusion: 10/05/22 11:20 Dose: Infused Pharmacy Consult (Consult Rx Perform Med Rec) 1 each MISCELLANE ONCE PRN PRN Reason: Consult order Home Medications Medication Instructions Recorded Confirmed Last Taken Type atorvastatin 20 mg tablet 20 mg PO BEDTIME 10/13/20 10/04/22 10/03/22 History omeprazole 20 mg capsule,delayed 20 mg PO DAILY@0630 10/13/20 10/04/22 10/04/22 History release amlodipine 5 mg tablet 1 tab PO DAILY 10/19/20 10/04/22 10/04/22 History albuterol sulfate 2.5 mg/3 mL 1 vial inhalation Q4H PRN 01/07/22 10/04/22 01/07/22 History (0.083 %) solution for nebulization Shortness Of Breath albuterol sulfate 90 mcg/actuation 2 puff inhalation QID PRN 01/07/22 10/04/22 01/07/22 History aerosol inhaler Shortness Of Breath docusate sodium 100 mg capsule 100 mg PO BID 01/07/22 10/04/22 10/04/22 09:00 History metoprolol tartrate 25 mg tablet 0.5 tab PO BID 01/07/22 10/04/22 10/04/22 09:00 History B-complex with vitamin C 1 tab PO BEDTIME 10/04/22 10/04/22 10/03/22 History aspirin 81 mg tablet,delayed 81 mg PO MOWEFR@2100 10/04/22 10/04/22 10/03/22 History release buspirone 5 mg tablet 2 tab PO BID PRN Anxiety 10/04/22 10/04/22 10/04/22 09:00 History cholecalciferol (vitamin D3) 10 10 mcg PO BEDTIME 10/04/22 10/04/22 10/03/22 History mcg (400 unit) tablet (Vitamin D3) docosahexaenoic acid (dha)-epa 1 cap PO BEDTIME 10/04/22 10/04/22 10/03/22 History capsule doxycycline hyclate 100 mg capsule 1 cap PO BID 10/04/22 10/04/22 10/04/22 09:00 History losartan 25 mg tablet 1 tab PO DAILY 10/04/22 10/04/22 10/04/22 History lutein 20 mg capsule 20 mg PO BEDTIME 10/04/22 10/04/22 10/03/22 History melatonin 5 mg tablet 5 mg PO BEDTIME PRN Insomnia 10/04/22 10/04/22 10/03/22 History tizanidine 4 mg tablet 1 tab PO DAILY 10/04/22 10/04/22 10/04/22 History torsemide 20 mg tablet 20 mg PO DAILY 10/04/22 10/04/22 10/04/22 History tramadol 50 mg tablet 1 tab PO BID PRN Pain 10/04/22 10/04/22 Unknown History Physical Exam Vital Signs: Vital Signs: Last Vital Signs Temp 98.3 F 10/05/22 14:54 Pulse 84 10/05/22 14:54 Resp 17 10/05/22 14:54 BP 126/58 L 10/05/22 14:54 Pulse Ox 90 L 10/05/22 14:54 O2 Del Method 10/05/22 14:54 O2 Flow Rate 9 10/05/22 14:54 FiO2 35 10/04/22 17:53 Oxygen Flow Rate 6 10/05/22 03:30 BMI result Body Mass Index 41.7 GENERAL APPEARANCE: in no acute distress, on supplemental oxygen. NECK: no carotid bruit, elevated jugular venous distention. SKIN: no suspicious lesions, warm and dry. HEART: Systolic murmur aortic area, regular rate and rhythm. LUNGS: clear to auscultation anteriorly. ABDOMEN: soft, nontender. EXTREMITIES: Positive edema. PERIPHERAL PULSES: equal. NEUROLOGIC: No gross deficits, AAO X 3 Objective Labs and Meds Result diagrams: 10/05/22 05:05 10/05/22 05:05 Lab results: Laboratory Results - last 24 hr 10/04/22 10/04/22 10/04/22 18:10 18:10 18:10 WBC 14.5 H RBC 4.33 Hgb 12.9 Hct 42.8 MCV 98.8 H MCH 29.8 MCHC 30.1 L RDW 16.3 H Plt Count 222 MPV 11.3 Immature Gran % (Auto) 0.8 H Neut % (Auto) 83.4 H Lymph % (Auto) 8.2 L [place] % (Auto) 6.0 Eos % (Auto) 1.3 Baso % (Auto) 0.3 Lymph # (Auto) 1.2 [place] # (Auto) 0.9 Eos # (Auto) 0.2 Baso # (Auto) 0.0 Abs Immat Gran (auto) 0.11 H Absolute Neuts (auto) 12.1 H Absolute Nucleated RBC 0.030 H Nucleated RBC % (auto) 0.2 Smear Tech's Comments PT 15.5 H INR 1.3 H aPTT Heparin Protocol O2 Saturation ABG pH at Pt Temp ABG pCO2 at Pt Temp ABG pO2 at Pt Temp ABG HCO3 ABG Base Excess (Actual) VBG pH VBG pCO2 VBG pO2 VBG HCO3 VBG O2 Saturation VBG Base Excess Sodium 138 Potassium 5.6 H D Chloride 98 Carbon Dioxide 28 Anion Gap 18 BUN 35 H Creatinine 2.65 H Estim Creat Clear Calc 22.3 Estimated GFR 17 Random Glucose 160 H Lactic Acid Lactic Acid F/U @ 2Hr Calcium 9.3 D Phosphorus 7.0 H Magnesium Total Bilirubin 0.7 Direct Bilirubin 0.5 AST 4065 H ALT 1770 H Alkaline Phosphatase 166 H Troponin I High Sens B-Natriuretic Peptide Total Protein 6.3 L Albumin 3.4 L Urine Color Urine Appearance Urine pH Ur Specific [place] Urine Protein Urine Glucose (UA) Urine Ketones Urine Blood Urine Nitrite Ur Leukocyte Esterase Urine RBC Urine WBC Ur Squamous Epith Cells Urine Bacteria Hyaline Casts COVID-19 (DONTE) COVID-19 Clin Com Influenza Type A (WILMER) Influenza Type B (WILMER) Influenza A & B Note 10/04/22 10/04/22 10/04/22 18:10 18:10 18:10 WBC RBC Hgb Hct MCV MCH MCHC RDW Plt Count MPV Immature Gran % (Auto) Neut % (Auto) Lymph % (Auto) [place] % (Auto) Eos % (Auto) Baso % (Auto) Lymph # (Auto) [place] # (Auto) Eos # (Auto) Baso # (Auto) Abs Immat Gran (auto) Absolute Neuts (auto) Absolute Nucleated RBC Nucleated RBC % (auto) Smear Tech's Comments PT INR aPTT Heparin Protocol O2 Saturation ABG pH at Pt Temp ABG pCO2 at Pt Temp ABG pO2 at Pt Temp ABG HCO3 ABG Base Excess (Actual) VBG pH VBG pCO2 VBG pO2 VBG HCO3 VBG O2 Saturation VBG Base Excess Sodium Potassium Chloride Carbon Dioxide Anion Gap BUN Creatinine Estim Creat Clear Calc Estimated GFR Random Glucose Lactic Acid 3.0 H* Lactic Acid F/U @ 2Hr Calcium Phosphorus Magnesium Total Bilirubin Direct Bilirubin AST ALT Alkaline Phosphatase Troponin I High Sens 2530.8 H* B-Natriuretic Peptide Total Protein Albumin Urine Color Urine Appearance Urine pH Ur Specific [place] Urine Protein Urine Glucose (UA) Urine Ketones Urine Blood Urine Nitrite Ur Leukocyte Esterase Urine RBC Urine WBC Ur Squamous Epith Cells Urine Bacteria Hyaline Casts COVID-19 (DONTE) Negative COVID-19 Clin Com See Note Influenza Type A (WILMER) Influenza Type B (WILMER) Influenza A & B Note 10/04/22 10/04/22 10/04/22 18:10 18:15 18:47 WBC RBC Hgb Hct MCV MCH MCHC RDW Plt Count MPV Immature Gran % (Auto) Neut % (Auto) Lymph % (Auto) [place] % (Auto) Eos % (Auto) Baso % (Auto) Lymph # (Auto) [place] # (Auto) Eos # (Auto) Baso # (Auto) Abs Immat Gran (auto) Absolute Neuts (auto) Absolute Nucleated RBC Nucleated RBC % (auto) Smear Tech's Comments PT INR aPTT Heparin Protocol O2 Saturation ABG pH at Pt Temp ABG pCO2 at Pt Temp ABG pO2 at Pt Temp ABG HCO3 ABG Base Excess (Actual) VBG pH 7.22 L VBG pCO2 67 VBG pO2 34 VBG HCO3 28 H VBG O2 Saturation 42.0 VBG Base Excess -1.4 Sodium Potassium Chloride Carbon Dioxide Anion Gap BUN Creatinine Estim Creat Clear Calc Estimated GFR Random Glucose Lactic Acid Lactic Acid F/U @ 2Hr Calcium Phosphorus Magnesium Total Bilirubin Direct Bilirubin AST ALT Alkaline Phosphatase Troponin I High Sens B-Natriuretic Peptide 1252 H Total Protein Albumin Urine Color Urine Appearance Urine pH Ur Specific [place] Urine Protein Urine Glucose (UA) Urine Ketones Urine Blood Urine Nitrite Ur Leukocyte Esterase Urine RBC Urine WBC Ur Squamous Epith Cells Urine Bacteria Hyaline Casts COVID-19 (DONTE) COVID-19 Clin Com Influenza Type A (WILMER) Negative Influenza Type B (WILMER) Negative Influenza A & B Note See Note 10/04/22 10/04/22 10/04/22 21:26 23:05 23:21 WBC RBC Hgb Hct MCV MCH MCHC RDW Plt Count MPV Immature Gran % (Auto) Neut % (Auto) Lymph % (Auto) [place] % (Auto) Eos % (Auto) Baso % (Auto) Lymph # (Auto) [place] # (Auto) Eos # (Auto) Baso # (Auto) Abs Immat Gran (auto) Absolute Neuts (auto) Absolute Nucleated RBC Nucleated RBC % (auto) Smear Tech's Comments PT INR aPTT Heparin Protocol O2 Saturation ABG pH at Pt Temp ABG pCO2 at Pt Temp ABG pO2 at Pt Temp ABG HCO3 ABG Base Excess (Actual) VBG pH VBG pCO2 VBG pO2 VBG HCO3 VBG O2 Saturation VBG Base Excess Sodium 137 Potassium 5.3 H Chloride 100 Carbon Dioxide 25 Anion Gap 17 BUN 37 H D Creatinine 2.75 H Estim Creat Clear Calc 21.7 Estimated GFR 17 Random Glucose 158 H Lactic Acid Lactic Acid F/U @ 2Hr 2.0 Calcium 9.1 Phosphorus 6.8 H Magnesium 3.3 H Total Bilirubin 0.6 Direct Bilirubin AST > 4202 H ALT 2325 H Alkaline Phosphatase 166 H D Troponin I High Sens 3012.1 H* B-Natriuretic Peptide Total Protein 6.9 Albumin 3.7 Urine Color Urine Appearance Urine pH Ur Specific [place] Urine Protein Urine Glucose (UA) Urine Ketones Urine Blood Urine Nitrite Ur Leukocyte Esterase Urine RBC Urine WBC Ur Squamous Epith Cells Urine Bacteria Hyaline Casts COVID-19 (DONTE) COVID-19 Clin Com Influenza Type A (WILMER) Influenza Type B (WILMER) Influenza A & B Note 10/04/22 10/04/22 10/04/22 23:21 23:21 23:23 WBC 15.0 H RBC 4.58 Hgb 13.4 Hct 44.2 MCV 96.5 MCH 29.3 MCHC 30.3 L RDW 16.0 Plt Count 210 MPV 11.3 Immature Gran % (Auto) Neut % (Auto) Lymph % (Auto) [place] % (Auto) Eos % (Auto) Baso % (Auto) Lymph # (Auto) [place] # (Auto) Eos # (Auto) Baso # (Auto) Abs Immat Gran (auto) Absolute Neuts (auto) Absolute Nucleated RBC 0.040 H Nucleated RBC % (auto) 0.3 H Smear Tech's Comments PT 15.0 H INR 1.3 H aPTT Heparin Protocol 31.1 L O2 Saturation 100.0 ABG pH at Pt Temp 7.28 L ABG pCO2 at Pt Temp 44 ABG pO2 at Pt Temp 121 H ABG HCO3 21 L ABG Base Excess (Actual) -5.5 VBG pH VBG pCO2 VBG pO2 VBG HCO3 VBG O2 Saturation VBG Base Excess Sodium Potassium Chloride Carbon Dioxide Anion Gap BUN Creatinine Estim Creat Clear Calc Estimated GFR Random Glucose Lactic Acid Lactic Acid F/U @ 2Hr Calcium Phosphorus Magnesium Total Bilirubin Direct Bilirubin AST ALT Alkaline Phosphatase Troponin I High Sens B-Natriuretic Peptide Total Protein Albumin Urine Color Urine Appearance Urine pH Ur Specific [place] Urine Protein Urine Glucose (UA) Urine Ketones Urine Blood Urine Nitrite Ur Leukocyte Esterase Urine RBC Urine WBC Ur Squamous Epith Cells Urine Bacteria Hyaline Casts COVID-19 (DONTE) COVID-19 Clin Com Influenza Type A (WILMER) Influenza Type B (WILMER) Influenza A & B Note 10/05/22 10/05/22 10/05/22 05:05 05:05 05:05 WBC 16.5 H 16.7 H RBC 4.45 4.40 Hgb 13.0 13.0 Hct 42.6 42.1 MCV 95.7 95.7 MCH 29.2 29.5 MCHC 30.5 L 30.9 L RDW 15.7 15.8 Plt Count 220 217 MPV 11.3 11.3 Immature Gran % (Auto) 1.6 H Neut % (Auto) 91.2 H Lymph % (Auto) 4.7 L [place] % (Auto) 2.3 Eos % (Auto) 0.0 Baso % (Auto) 0.2 Lymph # (Auto) 0.8 L [place] # (Auto) 0.4 Eos # (Auto) 0.0 Baso # (Auto) 0.0 Abs Immat Gran (auto) 0.27 H Absolute Neuts (auto) 15.0 H Absolute Nucleated RBC 0.100 H 0.110 H Nucleated RBC % (auto) 0.6 H 0.7 H Smear Tech's Comments VERIFIED PT INR aPTT Heparin Protocol O2 Saturation ABG pH at Pt Temp ABG pCO2 at Pt Temp ABG pO2 at Pt Temp ABG HCO3 ABG Base Excess (Actual) VBG pH VBG pCO2 VBG pO2 VBG HCO3 VBG O2 Saturation VBG Base Excess Sodium 136 Potassium 5.3 H Chloride 98 Carbon Dioxide 25 Anion Gap 18 BUN 40 H Creatinine 2.77 H Estim Creat Clear Calc 21.5 Estimated GFR 17 Random Glucose 186 H Lactic Acid Lactic Acid F/U @ 2Hr Calcium 9.0 Phosphorus 6.1 H Magnesium 3.2 H Total Bilirubin 0.5 Direct Bilirubin AST > 4202 H ALT 2580 H Alkaline Phosphatase 185 H Troponin I High Sens B-Natriuretic Peptide Total Protein 6.6 Albumin 3.6 Urine Color Urine Appearance Urine pH Ur Specific [place] Urine Protein Urine Glucose (UA) Urine Ketones Urine Blood Urine Nitrite Ur Leukocyte Esterase Urine RBC Urine WBC Ur Squamous Epith Cells Urine Bacteria Hyaline Casts COVID-19 (DONTE) COVID-19 Clin Com Influenza Type A (WILMER) Influenza Type B (WILMER) Influenza A & B Note 10/05/22 10/05/22 10/05/22 05:05 05:05 05:05 WBC RBC Hgb Hct MCV MCH MCHC RDW Plt Count MPV Immature Gran % (Auto) Neut % (Auto) Lymph % (Auto) [place] % (Auto) Eos % (Auto) Baso % (Auto) Lymph # (Auto) [place] # (Auto) Eos # (Auto) Baso # (Auto) Abs Immat Gran (auto) Absolute Neuts (auto) Absolute Nucleated RBC Nucleated RBC % (auto) Smear Tech's Comments PT 15.6 H INR 1.3 H aPTT Heparin Protocol O2 Saturation ABG pH at Pt Temp ABG pCO2 at Pt Temp ABG pO2 at Pt Temp ABG HCO3 ABG Base Excess (Actual) VBG pH VBG pCO2 VBG pO2 VBG HCO3 VBG O2 Saturation VBG Base Excess Sodium Potassium Chloride Carbon Dioxide Anion Gap BUN Creatinine Estim Creat Clear Calc Estimated GFR Random Glucose Lactic Acid Lactic Acid F/U @ 2Hr Calcium Phosphorus Magnesium Total Bilirubin Direct Bilirubin AST ALT Alkaline Phosphatase Troponin I High Sens 2458.9 H* B-Natriuretic Peptide 1082 H Total Protein Albumin Urine Color Urine Appearance Urine pH Ur Specific [place] Urine Protein Urine Glucose (UA) Urine Ketones Urine Blood Urine Nitrite Ur Leukocyte Esterase Urine RBC Urine WBC Ur Squamous Epith Cells Urine Bacteria Hyaline Casts COVID-19 (DONTE) COVID-19 Clin Com Influenza Type A (WILMER) Influenza Type B (WILMER) Influenza A & B Note 10/05/22 10/05/22 10/05/22 05:07 06:00 08:38 WBC RBC Hgb Hct MCV MCH MCHC RDW Plt Count MPV Immature Gran % (Auto) Neut % (Auto) Lymph % (Auto) [place] % (Auto) Eos % (Auto) Baso % (Auto) Lymph # (Auto) [place] # (Auto) Eos # (Auto) Baso # (Auto) Abs Immat Gran (auto) Absolute Neuts (auto) Absolute Nucleated RBC Nucleated RBC % (auto) Smear Tech's Comments PT INR aPTT Heparin Protocol 32.1 L O2 Saturation ABG pH at Pt Temp ABG pCO2 at Pt Temp ABG pO2 at Pt Temp ABG HCO3 ABG Base Excess (Actual) VBG pH 7.26 L VBG pCO2 54 VBG pO2 58 VBG HCO3 24 VBG O2 Saturation 83.0 VBG Base Excess -3.0 Sodium Potassium Chloride Carbon Dioxide Anion Gap BUN Creatinine Estim Creat Clear Calc Estimated GFR Random Glucose Lactic Acid Lactic Acid F/U @ 2Hr Calcium Phosphorus Magnesium Total Bilirubin Direct Bilirubin AST ALT Alkaline Phosphatase Troponin I High Sens B-Natriuretic Peptide Total Protein Albumin Urine Color Dark Yellow Urine Appearance Cloudy Urine pH 5.0 Ur Specific [place] >= 1.030 H Urine Protein 30 (1+) H Urine Glucose (UA) Negative Urine Ketones Trace Urine Blood Large (3+) H Urine Nitrite Negative Ur Leukocyte Esterase Trace H Urine RBC >20 H Urine WBC 0-5 Ur Squamous Epith Cells 6-10 Urine Bacteria 1+ Hyaline Casts >20 COVID-19 (DONTE) COVID-19 Clin Com Influenza Type A (WILMER) Influenza Type B (WILMER) Influenza A & B Note Imaging Radiologist's impression: Impressions Chest X-Ray 10/04/22 18:22 IMPRESSION: 1. Cardiomegaly with mild CHF. Suspect underlying mild interstitial changes. 2. Calcified right thyroid nodule, stable. Abdomen/Pelvis CT 10/05/22 00:40 IMPRESSION: 1. Suspected tree-in-bud type nodularity in the right upper and lower lobes, favoring an infectious/inflammatory bronchiolitis. 2. Cholelithiasis. 3. Cardiomegaly. 4. Enlarged, multinodular thyroid gland. 5. Additional chronic findings as noted above. Chest CT 10/05/22 00:40 IMPRESSION: 1. Suspected tree-in-bud type nodularity in the right upper and lower lobes, favoring an infectious/inflammatory bronchiolitis. 2. Cholelithiasis. 3. Cardiomegaly. 4. Enlarged, multinodular thyroid gland. 5. Additional chronic findings as noted above. Chest X-Ray 10/05/22 02:15 IMPRESSION: Right IJ central line tip in the region of the distal SVC. Redemonstrated streaky bibasilar opacities, similar to prior. Tree-in-bud type nodularity seen on CT is not well demonstrated radiographically. Assessment and Plan (1) Acute on chronic diastolic (congestive) heart failure: Status: Acute (2) NSTEMI (non-ST elevated myocardial infarction): Status: Acute Plan 77-year-old female presenting with congestive heart failure hypoxia. She had hypertension in the emergency department and subsequently required Levophed and is currently in the intensive care unit. Overall clinically warm and does not look like that she is hyper perfusing currently. She had elevated troponin levels on admission which have peaked and come down. She is denying any chest discomfort. EKG has been nonspecific. Echocardiography has shown normal LV function but wall motion abnormalities were difficult to assess. Right-sided pressures were elevated. I think we continue diuretics for now. Continue heparin for 48 hours. Once she is more stable we can reassess about ischemic evaluation. She should be on baby aspirin. She has significant kidney injury as well as liver injury currently. It is possible that this is related to hypoxia due to lung disease as well as heart failure. We will follow along with you. Thank you for allowing me to participate in the care of your patient. Please fe el free to contact me if you have any questions. Time Spent With Patient Time: Total time managing care of this patient today ____ minutes. Procedures Date of Service Date of Service: 10/05/22
[2022-10-05 15:21] LABS: PTT Heparin Drip 70.3 SEC (53-77.9)
--- NOTE | 2022-10-05 15:43 | PM.CCPN ---
Subjective Subjective Date of Service: 10/05/22 Interval History: 77-year-old lady with underlying history of COPD, chronic diastolic based congestive heart failure, WOJCIECH, obesity admitted on 10/04/2022 with dyspnea and hypoxia. On ER evaluation patient with significant transaminitis acute kidney injury, and hypotension, but no overt signs of sepsis. Started on empiric antibiotics and vasopressor support and admitted to intensive care unit. Overnight with minimal urine output. CT abdomen /chest not showing significant acute pathology. Titrated off BiPAP support. Continues to require low-dose vasopressor support. Troponin plateaued. Critical Care Time (minutes): 60 Physical Exam Vital Signs: Vital Signs: Last Vital Signs Temp 98.3 F 10/05/22 14:54 Pulse 84 10/05/22 14:54 Resp 17 10/05/22 14:54 BP 126/58 L 10/05/22 14:54 Pulse Ox 90 L 10/05/22 14:54 O2 Del Method 10/05/22 14:54 O2 Flow Rate 9 10/05/22 14:54 FiO2 35 10/04/22 17:53 Oxygen Flow Rate 6 10/05/22 03:30 BMI result Body Mass Index 41.7 Const: General: no acute distress, alert and awake Nutritional Appearance: obese and Edematous Eyes: Sclerae: sclerae normal EOM: EOMs intact bilaterally Neck: Neck: Yes no lymphadenopathy, Yes trachea midline and Yes supple Resp: Effort & Inspection: normal respiratory effort and no respiratory distress Auscultation: crackles ( Diffuse bilateral) Cardio: Rate: regular rate Rhythm: regular rhythm Heart sounds: no gallops, no murmurs and no rubs GI: Palpation (GI): Soft to palpation and Other GI palpation findings present ( Nontender) Auscultation: normal bowel sounds Extrem: General: No clubbing, No cyanosis and Yes edema ( trace bilateral) Objective Data Labs CBC & Chem 7: 10/05/22 05:05 10/05/22 05:05 Labs: Laboratory Results - last 24 hr 10/04/22 10/04/22 10/04/22 18:10 18:10 18:10 WBC 14.5 H RBC 4.33 Hgb 12.9 Hct 42.8 MCV 98.8 H MCH 29.8 MCHC 30.1 L RDW 16.3 H Plt Count 222 MPV 11.3 Immature Gran % (Auto) 0.8 H Neut % (Auto) 83.4 H Lymph % (Auto) 8.2 L [place] % (Auto) 6.0 Eos % (Auto) 1.3 Baso % (Auto) 0.3 Lymph # (Auto) 1.2 [place] # (Auto) 0.9 Eos # (Auto) 0.2 Baso # (Auto) 0.0 Abs Immat Gran (auto) 0.11 H Absolute Neuts (auto) 12.1 H Absolute Nucleated RBC 0.030 H Nucleated RBC % (auto) 0.2 Smear Tech's Comments PT 15.5 H INR 1.3 H aPTT Heparin Protocol O2 Saturation ABG pH at Pt Temp ABG pCO2 at Pt Temp ABG pO2 at Pt Temp ABG HCO3 ABG Base Excess (Actual) VBG pH VBG pCO2 VBG pO2 VBG HCO3 VBG O2 Saturation VBG Base Excess Sodium 138 Potassium 5.6 H D Chloride 98 Carbon Dioxide 28 Anion Gap 18 BUN 35 H Creatinine 2.65 H Estim Creat Clear Calc 22.3 Estimated GFR 17 Random Glucose 160 H Lactic Acid Lactic Acid F/U @ 2Hr Calcium 9.3 D Phosphorus 7.0 H Magnesium Total Bilirubin 0.7 Direct Bilirubin 0.5 AST 4065 H ALT 1770 H Alkaline Phosphatase 166 H Troponin I High Sens B-Natriuretic Peptide Total Protein 6.3 L Albumin 3.4 L Urine Color Urine Appearance Urine pH Ur Specific [place] Urine Protein Urine Glucose (UA) Urine Ketones Urine Blood Urine Nitrite Ur Leukocyte Esterase Urine RBC Urine WBC Ur Squamous Epith Cells Urine Bacteria Hyaline Casts COVID-19 (DONTE) COVID-19 Clin Com Influenza Type A (WILMER) Influenza Type B (WILMER) Influenza A & B Note 10/04/22 10/04/22 10/04/22 18:10 18:10 18:10 WBC RBC Hgb Hct MCV MCH MCHC RDW Plt Count MPV Immature Gran % (Auto) Neut % (Auto) Lymph % (Auto) [place] % (Auto) Eos % (Auto) Baso % (Auto) Lymph # (Auto) [place] # (Auto) Eos # (Auto) Baso # (Auto) Abs Immat Gran (auto) Absolute Neuts (auto) Absolute Nucleated RBC Nucleated RBC % (auto) Smear Tech's Comments PT INR aPTT Heparin Protocol O2 Saturation ABG pH at Pt Temp ABG pCO2 at Pt Temp ABG pO2 at Pt Temp ABG HCO3 ABG Base Excess (Actual) VBG pH VBG pCO2 VBG pO2 VBG HCO3 VBG O2 Saturation VBG Base Excess Sodium Potassium Chloride Carbon Dioxide Anion Gap BUN Creatinine Estim Creat Clear Calc Estimated GFR Random Glucose Lactic Acid 3.0 H* Lactic Acid F/U @ 2Hr Calcium Phosphorus Magnesium Total Bilirubin Direct Bilirubin AST ALT Alkaline Phosphatase Troponin I High Sens 2530.8 H* B-Natriuretic Peptide Total Protein Albumin Urine Color Urine Appearance Urine pH Ur Specific [place] Urine Protein Urine Glucose (UA) Urine Ketones Urine Blood Urine Nitrite Ur Leukocyte Esterase Urine RBC Urine WBC Ur Squamous Epith Cells Urine Bacteria Hyaline Casts COVID-19 (DONTE) Negative COVID-19 Clin Com See Note Influenza Type A (WILMER) Influenza Type B (WILMER) Influenza A & B Note 10/04/22 10/04/22 10/04/22 18:10 18:15 18:47 WBC RBC Hgb Hct MCV MCH MCHC RDW Plt Count MPV Immature Gran % (Auto) Neut % (Auto) Lymph % (Auto) [place] % (Auto) Eos % (Auto) Baso % (Auto) Lymph # (Auto) [place] # (Auto) Eos # (Auto) Baso # (Auto) Abs Immat Gran (auto) Absolute Neuts (auto) Absolute Nucleated RBC Nucleated RBC % (auto) Smear Tech's Comments PT INR aPTT Heparin Protocol O2 Saturation ABG pH at Pt Temp ABG pCO2 at Pt Temp ABG pO2 at Pt Temp ABG HCO3 ABG Base Excess (Actual) VBG pH 7.22 L VBG pCO2 67 VBG pO2 34 VBG HCO3 28 H VBG O2 Saturation 42.0 VBG Base Excess -1.4 Sodium Potassium Chloride Carbon Dioxide Anion Gap BUN Creatinine Estim Creat Clear Calc Estimated GFR Random Glucose Lactic Acid Lactic Acid F/U @ 2Hr Calcium Phosphorus Magnesium Total Bilirubin Direct Bilirubin AST ALT Alkaline Phosphatase Troponin I High Sens B-Natriuretic Peptide 1252 H Total Protein Albumin Urine Color Urine Appearance Urine pH Ur Specific [place] Urine Protein Urine Glucose (UA) Urine Ketones Urine Blood Urine Nitrite Ur Leukocyte Esterase Urine RBC Urine WBC Ur Squamous Epith Cells Urine Bacteria Hyaline Casts COVID-19 (DONTE) COVID-19 Clin Com Influenza Type A (WILMER) Negative Influenza Type B (WILMER) Negative Influenza A & B Note See Note 10/04/22 10/04/2210/04/22 21:26 23:05 23:21 WBC RBC Hgb Hct MCV MCH MCHC RDW Plt Count MPV Immature Gran % (Auto) Neut % (Auto) Lymph % (Auto) [place] % (Auto) Eos % (Auto) Baso % (Auto) Lymph # (Auto) [place] # (Auto) Eos # (Auto) Baso # (Auto) Abs Immat Gran (auto) Absolute Neuts (auto) Absolute Nucleated RBC Nucleated RBC % (auto) Smear Tech's Comments PT INR aPTT Heparin Protocol O2 Saturation ABG pH at Pt Temp ABG pCO2 at Pt Temp ABG pO2 at Pt Temp ABG HCO3 ABG Base Excess (Actual) VBG pH VBG pCO2 VBG pO2 VBG HCO3 VBG O2 Saturation VBG Base Excess Sodium 137 Potassium 5.3 H Chloride 100 Carbon Dioxide 25 Anion Gap 17 BUN 37 H D Creatinine 2.75 H Estim Creat Clear Calc 21.7 Estimated GFR 17 Random Glucose 158 H Lactic Acid Lactic Acid F/U @ 2Hr 2.0 Calcium 9.1 Phosphorus 6.8 H Magnesium 3.3 H Total Bilirubin 0.6 Direct Bilirubin AST > 4202 H ALT 2325 H Alkaline Phosphatase 166 H D Troponin I High Sens 3012.1 H* B-Natriuretic Peptide Total Protein 6.9 Albumin 3.7 Urine Color Urine Appearance Urine pH Ur Specific [place] Urine Protein Urine Glucose (UA) Urine Ketones Urine Blood Urine Nitrite Ur Leukocyte Esterase Urine RBC Urine WBC Ur Squamous Epith Cells Urine Bacteria Hyaline Casts COVID-19 (DONTE) COVID-19 Clin Com Influenza Type A (WILMER) Influenza Type B (WILMER) Influenza A & B Note 10/04/22 10/04/22 10/04/22 23:21 23:21 23:23 WBC 15.0 H RBC 4.58 Hgb 13.4 Hct 44.2 MCV 96.5 MCH 29.3 MCHC 30.3 L RDW 16.0 Plt Count 210 MPV 11.3 Immature Gran % (Auto) Neut % (Auto) Lymph % (Auto) [place] % (Auto) Eos % (Auto) Baso % (Auto) Lymph # (Auto) [place] # (Auto) Eos # (Auto) Baso # (Auto) Abs Immat Gran (auto) Absolute Neuts (auto) Absolute Nucleated RBC 0.040 H Nucleated RBC % (auto) 0.3 H Smear Tech's Comments PT 15.0 H INR 1.3 H aPTT Heparin Protocol 31.1 L O2 Saturation 100.0 ABG pH at Pt Temp 7.28 L ABG pCO2 at Pt Temp 44 ABG pO2 at Pt Temp 121 H ABG HCO3 21 L ABG Base Excess (Actual) -5.5 VBG pH VBG pCO2 VBG pO2 VBG HCO3 VBG O2 Saturation VBG Base Excess Sodium Potassium Chloride Carbon Dioxide Anion Gap BUN Creatinine Estim Creat Clear Calc Estimated GFR Random Glucose Lactic Acid Lactic Acid F/U @ 2Hr Calcium Phosphorus Magnesium Total Bilirubin Direct Bilirubin AST ALT Alkaline Phosphatase Troponin I High Sens B-Natriuretic Peptide Total Protein Albumin Urine Color Urine Appearance Urine pH Ur Specific [place] Urine Protein Urine Glucose (UA) Urine Ketones Urine Blood Urine Nitrite Ur Leukocyte Esterase Urine RBC Urine WBC Ur Squamous Epith Cells Urine Bacteria Hyaline Casts COVID-19 (DONTE) COVID-19 Clin Com Influenza Type A (WILMER) Influenza Type B (WILMER) Influenza A & B Note 10/05/22 10/05/22 10/05/22 05:05 05:05 05:05 WBC 16.5 H 16.7 H RBC 4.45 4.40 Hgb 13.0 13.0 Hct 42.6 42.1 MCV 95.7 95.7 MCH 29.2 29.5 MCHC 30.5 L 30.9 L RDW 15.7 15.8 Plt Count 220 217 MPV 11.3 11.3 Immature Gran % (Auto) 1.6 H Neut % (Auto) 91.2 H Lymph % (Auto) 4.7 L [place] % (Auto) 2.3 Eos % (Auto) 0.0 Baso % (Auto) 0.2 Lymph # (Auto) 0.8 L [place] # (Auto) 0.4 Eos # (Auto) 0.0 Baso # (Auto) 0.0 Abs Immat Gran (auto) 0.27 H Absolute Neuts (auto) 15.0 H Absolute Nucleated RBC 0.100 H 0.110 H Nucleated RBC % (auto) 0.6 H 0.7 H Smear Tech's Comments VERIFIED PT INR aPTT Heparin Protocol O2 Saturation ABG pH at Pt Temp ABG pCO2 at Pt Temp ABG pO2 at Pt Temp ABG HCO3 ABG Base Excess (Actual) VBG pH VBG pCO2 VBG pO2 VBG HCO3 VBG O2 Saturation VBG Base Excess Sodium 136 Potassium 5.3 H Chloride 98 Carbon Dioxide 25 Anion Gap 18 BUN 40 H Creatinine 2.77 H Estim Creat Clear Calc 21.5 Estimated GFR 17 Random Glucose 186 H Lactic Acid Lactic Acid F/U @ 2Hr Calcium 9.0 Phosphorus 6.1 H Magnesium 3.2 H Total Bilirubin 0.5 Direct Bilirubin AST > 4202 H ALT 2580 H Alkaline Phosphatase 185 H Troponin I High Sens B-Natriuretic Peptide Total Protein 6.6 Albumin 3.6 Urine Color Urine Appearance Urine pH Ur Specific [place] Urine Protein Urine Glucose (UA) Urine Ketones Urine Blood Urine Nitrite Ur Leukocyte Esterase Urine RBC Urine WBC Ur Squamous Epith Cells Urine Bacteria Hyaline Casts COVID-19 (DONTE) COVID-19 Clin Com Influenza Type A (WILMER) Influenza Type B (WILMER) Influenza A & B Note 10/05/22 10/05/22 10/05/22 05:05 05:05 05:05 WBC RBC Hgb Hct MCV MCH MCHC RDW Plt Count MPV Immature Gran % (Auto) Neut % (Auto) Lymph % (Auto) [place] % (Auto) Eos % (Auto) Baso % (Auto) Lymph # (Auto) [place] # (Auto) Eos # (Auto) Baso # (Auto) Abs Immat Gran (auto) Absolute Neuts (auto) Absolute Nucleated RBC Nucleated RBC % (auto) Smear Tech's Comments PT 15.6 H INR 1.3 H aPTT Heparin Protocol O2 Saturation ABG pH at Pt Temp ABG pCO2 at Pt Temp ABG pO2 at Pt Temp ABG HCO3 ABG Base Excess (Actual) VBG pH VBG pCO2 VBG pO2 VBG HCO3 VBG O2 Saturation VBG Base Excess Sodium Potassium Chloride Carbon Dioxide Anion Gap BUN Creatinine Estim Creat Clear Calc Estimated GFR Random Glucose Lactic Acid Lactic Acid F/U @ 2Hr Calcium Phosphorus Magnesium Total Bilirubin Direct Bilirubin AST ALT Alkaline Phosphatase Troponin I High Sens 2458.9 H* B-Natriuretic Peptide 1082 H Total Protein Albumin Urine Color Urine Appearance Urine pH Ur Specific [place] Urine Protein Urine Glucose (UA) Urine Ketones Urine Blood Urine Nitrite Ur Leukocyte Esterase Urine RBC Urine WBC Ur Squamous Epith Cells Urine Bacteria Hyaline Casts COVID-19 (DONTE) COVID-19 Clin Com Influenza Type A (WILMER) Influenza Type B (WILMER) Influenza A & B Note 10/05/22 10/05/2222 05:07 06:00 08:38 WBC RBC Hgb Hct MCV MCH MCHC RDW Plt Count MPV Immature Gran % (Auto) Neut % (Auto) Lymph % (Auto) [place] % (Auto) Eos % (Auto) Baso % (Auto) Lymph # (Auto) [place] # (Auto) Eos # (Auto) Baso # (Auto) Abs Immat Gran (auto) Absolute Neuts (auto) Absolute Nucleated RBC Nucleated RBC % (auto) Smear Tech's Comments PT INR aPTT Heparin Protocol 32.1 L O2 Saturation ABG pH at Pt Temp ABG pCO2 at Pt Temp ABG pO2 at Pt Temp ABG HCO3 ABG Base Excess (Actual) VBG pH 7.26 L VBG pCO2 54 VBG pO2 58 VBG HCO3 24 VBG O2 Saturation 83.0 VBG Base Excess -3.0 Sodium Potassium Chloride Carbon Dioxide Anion Gap BUN Creatinine Estim Creat Clear Calc Estimated GFR Random Glucose Lactic Acid Lactic Acid F/U @ 2Hr Calcium Phosphorus Magnesium Total Bilirubin Direct Bilirubin AST ALT Alkaline Phosphatase Troponin I High Sens B-Natriuretic Peptide Total Protein Albumin Urine Color Dark Yellow Urine Appearance Cloudy Urine pH 5.0 Ur Specific [place] >= 1.030 H Urine Protein 30 (1+) H Urine Glucose (UA) Negative Urine Ketones Trace Urine Blood Large (3+) H Urine Nitrite Negative Ur Leukocyte Esterase Trace H Urine RBC >20 H Urine WBC 0-5 Ur Squamous Epith Cells 6-10 Urine Bacteria 1+ Hyaline Casts >20 COVID-19 (DONTE) COVID-19 Clin Com Influenza Type A (WILMER) Influenza Type B (WILMER) Influenza A & B Note 10/05/22 15:03 WBC RBC Hgb Hct MCV MCH MCHC RDW Plt Count MPV Immature Gran % (Auto) Neut % (Auto) Lymph % (Auto) [place] % (Auto) Eos % (Auto) Baso % (Auto) Lymph # (Auto) [place] # (Auto) Eos # (Auto) Baso # (Auto) Abs Immat Gran (auto) Absolute Neuts (auto) Absolute Nucleated RBC Nucleated RBC % (auto) Smear Tech's Comments PT INR aPTT Heparin Protocol 70.3 D O2 Saturation ABG pH at Pt Temp ABG pCO2 at Pt Temp ABG pO2 at Pt Temp ABG HCO3 ABG Base Excess (Actual) VBG pH VBG pCO2 VBG pO2 VBG HCO3 VBG O2 Saturation VBG Base Excess Sodium Potassium Chloride Carbon Dioxide Anion Gap BUN Creatinine Estim Creat Clear Calc Estimated GFR Random Glucose Lactic Acid Lactic Acid F/U @ 2Hr Calcium Phosphorus Magnesium Total Bilirubin Direct Bilirubin AST ALT Alkaline Phosphatase Troponin I High Sens B-Natriuretic Peptide Total Protein Albumin Urine Color Urine Appearance Urine pH Ur Specific [place] Urine Protein Urine Glucose (UA) Urine Ketones Urine Blood Urine Nitrite Ur Leukocyte Esterase Urine RBC Urine WBC Ur Squamous Epith Cells Urine Bacteria Hyaline Casts COVID-19 (DONTE) COVID-19 Clin Com Influenza Type A (WILMER) Influenza Type B (WILMER) Influenza A & B Note Microbiology Microbiology Results: Microbiology 10/05/22 05:12 Sputum - Expectorated Gram Stain - Final Progress Note: A&P Assessment and plan (1) Ischemia reperfusion injury of liver: Status: Acute (2) YUDELKA (acute kidney injury): Status: Acute (3) Hypotension: Status: Acute (4) Acute on chronic diastolic (congestive) heart failure: Status: Acute (5) Acute and chronic respiratory failure with hypoxia: Status: Acute Plan Assessment: 77-year-old lady with underlying obesity, WOJCIECH, COPD, admitted with acute on chronic diastolic congestive heart failure complicated by ischemic liver injury and acute on chronic kidney injury. Plan: Neuro: No acute issues. Cardiac: No evidence of acute ischemia. 2D echocardiogram results reviewed. Cardiology service care appreciated. Acute on chronic diastolic congestive heart failure, with likely poor forward flow, started on diuresis. Pulmonary: acute on chronic hypoxic respiratory failure secondary to exacerbation underlying congestive heart failure. Briefly required BiPAP support. Continue to titrate off supplemental oxygen as tolerated. Underlying WOJCIECH. Renal: Acute on chronic kidney injury likely secondary to worsening of underlying congestive heart failure. Urine output is improving. Continue with diuresis. Continue to monitor renal indices and urine output. Endo: No acute issues. GI: Transaminitis, likely secondary to ischemic hepatitis/passive liver congestion. Expect to improve with diuresis. ID: No evidence of sepsis, empirically covered with broad-spectrum antibiotics. Cultures are pending. Heme/Onc: No acute issues. Psych: No acute issues. Miscellaneous: No acute issues. Prophylaxis: Heparin Diet: regular Critical care time spent: 60 minutes Quality Stroke Does the patient have a stroke diagnosis?: No VTE Prior VTE?: No VTE Risk Level:: Medical - moderate - high VTE Device Contraindication: N/A - Device Ordered VTE Drug Contraindication: N/A - Med Ordered
--- NOTE | 2022-10-05 16:02 | HE.PHANOTE ---
RE: cefepime Spoke to Gerri regarding listed allergy to ceftriaxone and she noted the patient previously tolerated it in the ED, but she will monitor closely
[2022-10-05] MEDS: cefEPime HCl 1 GM in 0.9 % Sodium Chloride 50 ML IV (16:35)
[2022-10-06] VITALS (35 sets, daily range): BP systolic 105–136; BP diastolic 29–77; PULSE 85–108; RESP 13–281; TEMP 36.1–37.3; O2SAT 89–97; BMI 43.7
[2022-10-06] MEDS: Albuterol/Iprat 2.5/0.5MG 3 ML AMPUL.NEB INHALE ×6 (00:34→19:35)
[2022-10-06 05:22] LABS: MANUAL DIFF FLAG NO; VBG Base Excess 2.2 mmol/L; VBG HCO3 29 mmol/L (22-26); VBG pCO2 57 mmHg; VBG pH 7.31 (7.32-7.43); VBG pO2 61 mmHg
[2022-10-06 05:24] LABS: Basophils Percent Auto 0.2 % (0-2); Hematocrit 40.8 % (37.0-47.0); Hemoglobin 12.8 g/dl (12.0-16.0); Imm Gran Abs Auto 0.31 X10*3/uL (0.00-0.03); Imm Gran Pct Auto 2.5 % (0.0-0.4); Lymphocytes Percent Auto 8.4 % (20-40); Mean Corpuscular HGB Conc 31.4 g/dl (31.0-35.0); Mean Corpuscular Hemoglobin 30.1 pg (27.0-33.0); Monocytes Absolute Auto 0.6 X10*3/uL (0.1-1.2); NRBC Pct Auto 0.9 /100WBC (0.0-0.2); Neutrophils Absolute Auto 10.3 x10*3/uL (2.0-8.3); Neutrophils Percent Auto 83.9 % (45-73); Platelet Count 168 X10*3/uL (160-400); Red Blood Count 4.25 X10*6/uL (4.20-5.50); Red Cell Distribution Width 15.7 % (11.0-16.0); White Blood Count 12.3 X10*3/uL (4.8-10.8)
--- NOTE | 2022-10-06 05:39 | PC.NURSE ---
CARE ASSUMED 23:15...AWAKE..ALERT..ORIENTED X3...VAGUE RESPONSES AT TIMES..ANXIOUS PERSONALITY...REMAINS OFF PRESSORS...BP STABLE...NSR...O2 6 L/M CANNULA...SAO2 91-92%...SAO2 GOAL 88-92%..VARGAS DRAINING YELLOW URINE...RT PLACED ON NOCTURNAL CPAP 10CM AND FIO2 50% AT APPROX 2AM....SAO2 95-96%...FIO2 WEANED TO 40% WITH SAO2 91-92%
[2022-10-06 05:41] LABS: Albumin Level 3.4 g/dL (3.5-5.0); Anion Gap 14 (12-20); Blood Urea Nitrogen 56 mg/dL (9-16); Calcium 8.8 mg/dL (8.4-10.2); Carbon Dioxide 29 mmol/L (22-29); Chloride 101 mmol/L (96-108); Creatinine Clr Calc Pharmacy 35.6; Estimated Glomerular Filt Rate 30; Glucose Random 101 mg/dL (60-115); Magnesium 3.1 mg/dL (1.6-2.6); Phosphorus 4.2 mg/dL (2.7-4.5); Potassium 4.9 mmol/L (3.3-5.1); Sodium 139 mmol/L (135-145)
[2022-10-06 06:22] LABS: Venous Blood Gas Refer to POC result
[2022-10-06] MEDS: Heparin Sodium,Porcine 5,000 UNIT/ML VIAL 5000 UNIT SUBCUT ×2 (08:35→16:48)
[2022-10-06] MEDS: Bumetanide 1 MG/4 ML VIAL IVPUSH ×2 (08:35→16:48)
[2022-10-06] MEDS: Albumin Human 25 % 100 ML IV ×3 (08:35→20:17)
--- NOTE | 2022-10-06 14:42 | PM.CCPN ---
Subjective Subjective Date of Service: 10/06/22 Interval History: 77-year-old lady with underlying history of COPD, chronic diastolic based congestive heart failure, WOJCIECH, obesity admitted on 10/04/2022 with dyspnea and hypoxia. On ER evaluation patient with significant transaminitis acute kidney injury, and hypotension, but no overt signs of sepsis. Started on empiric antibiotics and vasopressor support and admitted to intensive care unit. Patient started on diuresis with significant improvement. 2D echocardiogram with normal left-sided ejection fraction. Titrated off positive pressors. On/off CPAP overnight. Critical Care Time (minutes): 45 Physical Exam Vital Signs: Vital Signs: Last Vital Signs Temp 96.9 F 10/06/22 08:00 Pulse 102 H 10/06/22 14:00 Resp 18 10/06/22 14:00 BP 129/57 L 10/06/22 14:00 Pulse Ox 91 L 10/06/22 14:00 O2 Del Method 10/06/22 14:00 O2 Flow Rate 6 10/06/22 14:00 FiO2 40 10/06/22 08:00 Oxygen Flow Rate 6 10/05/22 03:30 BMI result Body Mass Index 43.7 Const: General: no acute distress, alert and awake Nutritional Appearance: obese Eyes: Sclerae: sclerae normal EOM: EOMs intact bilaterally Neck: Neck: Yes no lymphadenopathy, Yes trachea midline and Yes supple Resp: Effort & Inspection: normal respiratory effort and no respiratory distress Auscultation: crackles ( Diffuse bilateral) Cardio: Rate: regular rate Rhythm: regular rhythm Heart sounds: no gallops, no murmurs and no rubs GI: Palpation (GI): Soft to palpation and Other GI palpation findings present ( Nontender) Auscultation: normal bowel sounds Extrem: General: No clubbing, No cyanosis and Yes edema ( 1+ bilateral) Objective Data Labs CBC & Chem 7: 10/06/22 05:15 10/06/22 05:15 Labs: Laboratory Results - last 24 hr 10/05/22 10/06/22 10/06/22 15:03 05:15 05:15 WBC 12.3 H RBC 4.25 Hgb 12.8 Hct 40.8 MCV 96.0 MCH 30.1 MCHC 31.4 RDW 15.7 Plt Count 168 MPV 11.0 Immature Gran % (Auto) 2.5 H Neut % (Auto) 83.9 H Lymph % (Auto) 8.4 L [place] % (Auto) 5.0 Eos % (Auto) 0.0 Baso % (Auto) 0.2 Lymph # (Auto) 1.0 L [place] # (Auto) 0.6 Eos # (Auto) 0.0 Baso # (Auto) 0.0 Abs Immat Gran (auto) 0.31 H Absolute Neuts (auto) 10.3 H Absolute Nucleated RBC 0.110 H Nucleated RBC % (auto) 0.9 H aPTT Heparin Protocol 70.3 D VBG pH VBG pCO2 VBG pO2 VBG HCO3 VBG O2 Saturation VBG Base Excess Sodium 139 Potassium 4.9 Chloride 101 Carbon Dioxide 29 Anion Gap 14 BUN 56 H Creatinine 1.67 H Estim Creat Clear Calc 35.6 Estimated GFR 30 Random Glucose 101 Calcium 8.8 Phosphorus 4.2 Magnesium 3.1 H Albumin 3.4 L 10/06/22 05:15 WBC RBC Hgb Hct MCV MCH MCHC RDW Plt Count MPV Immature Gran % (Auto) Neut % (Auto) Lymph % (Auto) [place] % (Auto) Eos % (Auto) Baso % (Auto) Lymph # (Auto) [place] # (Auto) Eos # (Auto) Baso # (Auto) Abs Immat Gran (auto) Absolute Neuts (auto) Absolute Nucleated RBC Nucleated RBC % (auto) aPTT Heparin Protocol VBG pH 7.31 L VBG pCO2 57 VBG pO2 61 VBG HCO3 29 H VBG O2 Saturation 86.0 VBG Base Excess 2.2 Sodium Potassium Chloride Carbon Dioxide Anion Gap BUN Creatinine Estim Creat Clear Calc Estimated GFR Random Glucose Calcium Phosphorus Magnesium Albumin Microbiology Microbiology Results: Microbiology 10/05/22 05:12 Sputum - Expectorated Gram Stain - Final 10/05/22 05:12 Sputum - Expectorated Sputum Culture - Preliminary 10/04/22 18:42 Blood - Venous Blood Culture - Preliminary No growth after 24 hours. 10/04/22 18:42 Blood - Venous Blood Culture - Preliminary No growth after 24 hours. Progress Note: A&P Assessment and plan (1) Acute on chronic diastolic (congestive) heart failure: Status: Acute (2) Ischemia reperfusion injury of liver: Status: Acute (3) YUDELKA (acute kidney injury): Status: Acute (4) Acute and chronic respiratory failure with hypoxia: Status: Acute Plan Assessment: 77-year-old lady with underlying obesity, WOJCIECH, COPD, admitted with acute on chronic diastolic congestive heart failure complicated by ischemic liver injury and acute on chronic kidney injury. Plan: Neuro: No acute issues. Cardiac: No evidence of acute ischemia. 2D echocardiogram results reviewed. Cardiology service care appreciated. Acute on chronic diastolic congestive heart failure, with likely poor forward flow, improving with diuresis. Pulmonary: acute on chronic hypoxic respiratory failure secondary to exacerbation underlying congestive heart failure. Briefly required BiPAP support. Continue to titrate off supplemental oxygen as tolerated. Underlying WOJCIECH. Renal: Acute on chronic kidney injury likely secondary to worsening of underlying congestive heart failure, improved. Urine output is improving. Continue with diuresis. Continue to monitor renal indices and urine output. Endo: No acute issues. GI: Transaminitis, likely secondary to ischemic hepatitis/passive liver congestion. Improving with diuresis. ID: No evidence of sepsis, empirically covered with broad-spectrum antibiotics. Cultures are pending. Heme/Onc: No acute issues. Psych: No acute issues. Miscellaneous: No acute issues. Prophylaxis: Heparin Diet: regular Critical care time spent: 45 minute Quality Stroke Does the patient have a stroke diagnosis?: No VTE Prior VTE?: No VTE Risk Level:: Medical - moderate - high VTE Device Contraindication: N/A - Device Ordered VTE Drug Contraindication: N/A - Med Ordered
--- NOTE | 2022-10-06 16:06 | MHC.CM.PN ---
Pt continues care in ICU: making clinical progress: Pressors not given: BP within more normal parameters: O2 at 6 liters: Plans are to continue to stablize and transfer to floor for continued care. Pt has strong support from 2 dtrs with whom she resides with additional support from [facility] if pt opts for services: CM to contact dtr to bring in HCP and begin d/c planning discussion.
--- NOTE | 2022-10-06 16:42 | PM.PNCARD ---
Subjective Subjective Date of Service: 10/06/22 Interval history: Patient seen examined at bedside. Complaining of cough. Continues to be on supplemental oxygen and volume overloaded. Physical Exam Vital Signs: Last Vital Signs Temp 96.9 F 10/06/22 08:00 Pulse 102 H 10/06/22 15:50 Resp 18 10/06/22 15:50 BP 126/36 L 10/06/22 15:50 Pulse Ox 91 L 10/06/22 15:50 O2 Del Method 10/06/22 15:50 O2 Flow Rate 6 10/06/22 15:50 FiO2 40 10/06/22 14:50 Oxygen Flow Rate 6 10/05/22 03:30 BMI result Body Mass Index 43.7 GENERAL APPEARANCE: in no acute distress, on supplemental oxygen. NECK: no carotid bruit, elevated jugular venous distention. SKIN: no suspicious lesions, warm and dry. HEART: Systolic murmur aortic area, regular rate and rhythm. LUNGS: clear to auscultation anteriorly. ABDOMEN: soft, nontender. EXTREMITIES: Positive edema. PERIPHERAL PULSES: equal. NEUROLOGIC: No gross deficits, AAO X 3 Objective Labs and Meds Result diagrams: 10/06/22 05:15 10/06/22 05:15 Lab results: Laboratory Results - last 24 hr 10/06/22 10/06/22 10/06/22 05:15 05:15 05:15 WBC 12.3 H RBC 4.25 Hgb 12.8 Hct 40.8 MCV 96.0 MCH 30.1 MCHC 31.4 RDW 15.7 Plt Count 168 MPV 11.0 Immature Gran % (Auto) 2.5 H Neut % (Auto) 83.9 H Lymph % (Auto) 8.4 L [place] % (Auto) 5.0 Eos % (Auto) 0.0 Baso % (Auto) 0.2 Lymph # (Auto) 1.0 L [place] # (Auto) 0.6 Eos # (Auto) 0.0 Baso # (Auto) 0.0 Abs Immat Gran (auto) 0.31 H Absolute Neuts (auto) 10.3 H Absolute Nucleated RBC 0.110 H Nucleated RBC % (auto) 0.9 H VBG pH 7.31 L VBG pCO2 57 VBG pO2 61 VBG HCO3 29 H VBG O2 Saturation 86.0 VBG Base Excess 2.2 Sodium 139 Potassium 4.9 Chloride 101 Carbon Dioxide 29 Anion Gap 14 BUN 56 H Creatinine 1.67 H Estim Creat Clear Calc 35.6 Estimated GFR 30 Random Glucose 101 Calcium 8.8 Phosphorus 4.2 Magnesium 3.1 H Albumin 3.4 L Progress Note: A&P Assessment and plan (1) NSTEMI (non-ST elevated myocardial infarction): Status: Acute (2) Acute on chronic diastolic (congestive) heart failure: Status: Acute Plan 77-year-old female with congestive heart failure and NSTEMI. Was treated with heparin. Will recommend continuing for 48 hours total. She is volume overloaded. She has-574 mL. She is on Bumex 1 mg twice a day. Metolazone can be added to this to have better diuresis. Monitor electrolytes and kidney function closely. She is on on empiric antibiotics without any obvious source currently. Thank you for allowing me to participate in the care of your patient. Please feel free to contact me if you have any questions. Time Spent With Patient Time: Total time managing care of this patient today ____ minutes. Progress Note: Quality Stroke Does the patient have a stroke diagnosis?: No Procedures Date of Service Date of Service: 10/06/22
[2022-10-06] MEDS: cefEPime HCl 1 GM in 0.9 % Sodium Chloride 50 ML IV (16:48)
--- NOTE | 2022-10-06 18:27 | PC.NURSE ---
Pt AAO and able to make needs known. Pt on and off the CPAP mask when napping otherwise on [place] at 6L and satting well in the low 90s. Pt received Bumex as ordered and diuresing well. Javed catheter CDI, draining concentrated yellow urine. Pt continues to be off Levophed this shift and BP stable with MAP in the 70s. Pt was bathed today and is currently resting in bed with no acute distress, able to reposition self. SCDs on b/l. VSS. Family updated and all questions answered. Safety maintained. Will continue to monitor.
[2022-10-06] MEDS: traMADoL HCL 50 MG TABLET PO (22:11)
[2022-10-07] VITALS (18 sets, daily range): BP systolic 120–183; BP diastolic 49–77; PULSE 65–111; RESP 16–25; TEMP 36.2–37.2; O2SAT 88–99
[2022-10-07] MEDS: Albuterol/Iprat 2.5/0.5MG 3 ML AMPUL.NEB INHALE ×6 (00:06→23:11)
[2022-10-07] MEDS: Albumin Human 25 % 100 ML IV (00:10)
[2022-10-07] MEDS: Heparin Sodium,Porcine 5,000 UNIT/ML VIAL 5000 UNIT SUBCUT ×3 (00:10→16:01)
--- NOTE | 2022-10-07 01:31 | ECG_ITS ---
Test Reason : chest pain Blood Pressure : / mmHG Vent. Rate : 109 BPM Atrial Rate : 109 BPM P-R Int : 168 ms QRS Dur : 116 ms QT Int : 328 ms P-R-T Axes : 017 024 064 degrees QTc Int : 441 ms Sinus tachycardia with Premature atrial complexes Low voltage QRS Incomplete right bundle branch block Nonspecific ST abnormality Abnormal ECG When compared with ECG of 04-OCT-2022 20:58, Premature atrial complexes are now Present Vent. rate has increased BY 45 BPM T wave inversion no longer evident in Inferior leads Referred By: Jose Alfredo Navas Electronically Signed By:Alfonso Abel
--- NOTE | 2022-10-07 02:38 | PC.NURSE ---
CARE ASSUMED 23:15..AWAKE..ORIENTED X3 BUT VAGUE RESPONSES AT TIMES...REMAINS ON NOCTURNAL CPAP 10CM AND FIO2 40%..SAO2 GOAL 88-92%..PRODUCTIVE COUGH..RAISES WHITE SPUTUM..C/O CHEST PAIN WITH COUGHING..ICU OIL AND GAS EXPLORATION TECHNICIAN UPDATED..12-LEAD EKG DONE AND REVIEWED..NO NEW ORDERS..VARGAS YELLOW URINE..CURRENTLY NAPPING
[2022-10-07 08:49] LABS: MANUAL DIFF FLAG NO
[2022-10-07 08:52] LABS: Basophils Percent Auto 0.2 % (0-2); Eosinophils Percent Auto 0.1 % (0-4); Hematocrit 39.3 % (37.0-47.0); Imm Gran Abs Auto 0.23 X10*3/uL (0.00-0.03); Imm Gran Pct Auto 2.2 % (0.0-0.4); Lymphocytes Absolute Auto 0.9 X10*3/uL (1.2-4.9); Lymphocytes Percent Auto 9.1 % (20-40); Mean Corpuscular HGB Conc 30.5 g/dl (31.0-35.0); Mean Corpuscular Hemoglobin 29.1 pg (27.0-33.0); Mean Corpuscular Volume 95.2 fL (80.0-98.0); Mean Platelet Volume 10.2 fL (9.4-12.3); Monocytes Percent Auto 9.7 % (2-11); NRBC Pct Auto 0.4 /100WBC (0.0-0.2); Neutrophils Absolute Auto 8.1 x10*3/uL (2.0-8.3); Neutrophils Percent Auto 78.7 % (45-73); Platelet Count 159 X10*3/uL (160-400); Red Blood Count 4.13 X10*6/uL (4.20-5.50); Red Cell Distribution Width 15.9 % (11.0-16.0); White Blood Count 10.3 X10*3/uL (4.8-10.8)
[2022-10-07 08:53] LABS: Venous Blood Gas Refer to POC result
[2022-10-07 09:19] LABS: Albumin Level 4.4 g/dL (3.5-5.0); Anion Gap 13 (12-20); Blood Urea Nitrogen 49 mg/dL (9-16); Calcium 9.9 mg/dL (8.4-10.2); Carbon Dioxide 34 mmol/L (22-29); Chloride 101 mmol/L (96-108); Creatinine Clr Calc Pharmacy 65.4; Estimated Glomerular Filt Rate 60; Glucose Random 199 mg/dL (60-115); Magnesium 2.6 mg/dL (1.6-2.6); Phosphorus 2.5 mg/dL (2.7-4.5); Potassium 4.5 mmol/L (3.3-5.1); Sodium 143 mmol/L (135-145)
[2022-10-07] MEDS: Bumetanide 1 MG/4 ML VIAL IVPUSH ×2 (10:02→16:02)
[2022-10-07] MEDS: metOLazone 5 MG TABLET PO (10:02)
--- NOTE | 2022-10-07 11:57 | MHC.CM.PN ---
PT is recommending STR and CM will continue to follow.
--- NOTE | 2022-10-07 12:38 | PM.PNCARD ---
Subjective Subjective Date of Service: 10/07/22 Principal diagnosis: CHF, hypoxic resp failure Interval history: Seen at 1100. Today she reports that she is starting to feel better. Breathing improving but not at baseline yet. Still wearing O2 supplement and mask at night. No chest pains, palpitations, dizziness. Moves well in the bed. Physical therapist in with her this am. Tele showing SR/ ST with PACs and a burst of AT, rates average 80-100. Review of Systems Review of Systems as above Yes all other systems are reviewed and are negative Physical Exam Vital Signs: Last Vital Signs Temp 98.6 F 10/07/22 12:00 Pulse 65 10/07/22 12:00 Resp 16 10/07/22 12:00 BP 145/65 H 10/07/22 12:00 Pulse Ox 91 L 10/07/22 12:00 O2 Del Method 10/07/22 12:00 O2 Flow Rate 5 10/07/22 12:00 FiO2 50 10/07/22 04:00 Oxygen Flow Rate 6 10/05/22 03:30 BMI result Body Mass Index 43.7 Const Other: morbidly obese General: cooperative, comfortable and no acute distress Orientation/consciousness: patient oriented x3 Neck Neck: Yes normal visual inspection and Yes no JVD Resp Other: Lung sounds diminshed Effort & Inspection: normal respiratory effort Auscultation: no crackles, no rales, no rhonchi and no wheezes Cardio Rate: regular rate Rhythm: regular rhythm Heart sounds: S1 normal heart sound present, S2 normal heart sound present, no gallops, Murmur heart sound present (faint systolic) and no rubs Neuro General: patient oriented x3 Extrem General: Yes normal to inspection, No no pedal edema and No calf tenderness Psych Appearance: grossly normal Mental Status: mental status grossly normal Speech and movement: Normal speech and movement present Objective Labs and Meds Result diagrams: 10/07/22 08:45 10/07/22 08:45 Lab results: Laboratory Results - last 24 hr 10/07/22 10/07/22 10/07/22 08:45 08:45 08:49 WBC 10.3 RBC 4.13 L Hgb 12.0 Hct 39.3 MCV 95.2 MCH 29.1 MCHC 30.5 L RDW 15.9 Plt Count 159 L MPV 10.2 Immature Gran % (Auto) 2.2 H Neut % (Auto) 78.7 H Lymph % (Auto) 9.1 L [place] % (Auto) 9.7 Eos % (Auto) 0.1 Baso % (Auto) 0.2 Lymph # (Auto) 0.9 L [place] # (Auto) 1.0 Eos # (Auto) 0.0 Baso # (Auto) 0.0 Abs Immat Gran (auto) 0.23 H Absolute Neuts (auto) 8.1 Absolute Nucleated RBC 0.040 H Nucleated RBC % (auto) 0.4 H VBG pH 7.35 VBG pCO2 62 VBG pO2 92 VBG HCO3 34 H VBG O2 Saturation 97.0 VBG Base Excess 7.0 Sodium 143 Potassium 4.5 Chloride 101 Carbon Dioxide 34 H Anion Gap 13 BUN 49 H Creatinine 0.91 Estim Creat Clear Calc 65.4 Estimated GFR 60 Random Glucose 199 H Calcium 9.9 D Phosphorus 2.5 L Magnesium 2.6 Albumin 4.4 Progress Note: A&P Assessment and plan (1) Acute on chronic diastolic (congestive) heart failure: Status: Acute Assessment and Plan: Events of admission reviewed. Condition improving but not at baseline. Still reports sob with movement. Wearing O2 5 liters with sat 93%. Lungs dim, no JVD noted however pt morbidly obese. BNP initally 1252 and down to 1082 yesterday. Fluid balance neg 1505 cc yesterday and total of only 150cc since admit. Unclear accuracy. Will check BNP, BMP in am. Continue to diurese with IV Bumex. Strict I+O monitoring. Electrolyte replacement as warranted. O2 supplement as needed for sat > 90%. Increase activity as tolerated. (2) Acute and chronic respiratory failure with hypoxia: Status: Acute (3) NSTEMI (non-ST elevated myocardial infarction): Status: Acute Assessment and Plan: NSTEMI this admit in setting of CHF, hypoxic resp failure, hypotension. Troponin elevated 3012 on 10/04. No known hx of CAD. EKG nonischemic. Echo with normal EF and no reported WMA. Was treated with heparin for 48 hr. Most likely secondary NSTEMI. Will eventually need ischemic eval. Not a good candidate at present due to breathing issues. Recommend restart of aspirin and atorvastatin if no contrainidication. We will follow Time Spent With Patient Time: Total time managing care of this patient today _22__ minutes. Progress Note: Quality Stroke Does the patient have a stroke diagnosis?: No Procedures Date of Service Date of Service: 10/07/22
--- NOTE | 2022-10-07 12:45 | MHC.CDI.CONC ---
CDI Concurrent Query Documentation Clarification: PHYSICIAN'S DOCUMENTATION REQUEST Date of Query: 10/07/22 1246 Patient Name: Macy Millan Admit Date: 10/04/22 Dear Doctor, A review of the medical record indicates additional documentation may be needed. Please review below and update the documentation accordingly. Clinical Indicators: The following clinical information was noted in the record: Risk Factors/Clinical Indicators/Treatments per MD progress note 10/06/22: ?Acute on chronic kidney? injury likely secondary to worsening of underlying congestive heart failure, improved.? Urine output is improving.? Continue with diuresis.? Continue to monitor renal indices and urine output. Please clarify which of the following accurately represents the patient's renal status: Acute renal failure with suspected ATN CKD, please provide stage - see criteria Other (please specify) Unable to determine Criteria for YUDELKA* Stages of Chronic Kidney Disease* 1. Increase in serum creatinine by ? 0.3 mg/dL Level Description GFR (?26.5 micromol/L) within 48 hours, or G1 Normal or High > 90 2. Increase in serum creatinine to ?1.5 times baseline, G2 Mildly decreased 60 ? 89 which is known or presumed to have occurred within 7 days, or G3a Mildly to moderately decreased 45 ? 59 3. Urine volume <0.5 mL/kg/hour for six hours G3b Moderately to severely decreased 30 - 44 G4 Severely decreased 15 ? 29 G5 Kidney failure < 15 *Source: Kidney Disease: Improving Global Outcomes (KDIGO) 2012 Use of terms such as suspected, likely, concern for, or probable (associated with a specific diagnosis that is being evaluated, monitored, or treated as if it exists) are acceptable and can be coded in the inpatient setting, when documented at the time of discharge. Thank you, Autumn Robles RN Extension: [phone] Please use your independent medical judgment in providing your response. THIS QUERY IS PART OF THE PERMANENT MEDICAL RECORD Provider Response: Other ( Acute kidney failure likely secondary to ATN) Other Diagnosis: Acute kidney failure likely secondary to ATN
--- NOTE | 2022-10-07 13:09 | HO.PM.IMPN ---
Subjective Subjective Date of Service: 10/07/22 Interval History: seen and evaluated this morning for hypoxic type respiratory failure the Feels improvement in her breathing with decreased oxygen supplement Report diuresing well No other overnight events Review of Systems Review of Systems: Yes all other systems are reviewed and are negative Physical Exam Vital Signs: Vital Signs: Last Vital Signs Temp 98.6 F 10/07/22 12:00 Pulse 65 10/07/22 12:00 Resp 16 10/07/22 12:00 BP 145/65 H 10/07/22 12:00 Pulse Ox 91 L 10/07/22 12:00 O2 Del Method 10/07/22 12:00 O2 Flow Rate 5 10/07/22 12:00 FiO2 50 10/07/22 04:00 Oxygen Flow Rate 6 10/05/22 03:30 BMI result Body Mass Index 43.7 Const: Other: Constitutional : Awake, interactive, not in distress Neck : Normal inspection, Supple Cardiovascular : RRR, elevated JVP, trace bilateral lower extremity edema Respiratory : good bilateral air entry, basal fine crack Gastrointestinal: soft, lax, Normal bowel sounds, Non tender Skin : Warm, Dry Neurological : Alert & oriented x3, No focal deficit Objective Data Active Medications Acetaminophen (Acetaminophen 325 Mg Tablet) 650 mg PO Q6H PRN PRN Reason: Headache Last Admin: 10/05/22 10:44 Dose: 650 mg Documented By: KATH Albuterol/Ipratropium (Albuterol/Iprat 2.5/0.5mg 3 Ml Ampul.Neb) 3 ml INHALE RQ4H [facility] Last Admin: 10/07/22 11:21 Dose: 3 ml Documented By: LIV Bumetanide (Bumetanide 1 Mg/4 Ml Vial) 1 mg IVPUSH BID@0900,1700 [facility]; Protocol Last Admin: 10/07/22 10:02 Dose: 1 mg Documented By: MANA Calcium Carbonate (Calcium Carbonate 750 Mg Tab.Chew) 750 mg PO Q4H PRN PRN Reason: Heartburn Heparin Sodium (Porcine) (Heparin Sodium,Porcine 5,000 Unit/Ml Vial) 5,000 unit SUBCUT Q8H [facility] Last Admin: 10/07/22 10:02 Dose: 5,000 unit Documented By: MANA Pharmacy Consult (Consult Rx Perform Med Rec) 1 each MISCELLANE ONCE PRN PRN Reason: Consult order Tramadol HCl (Tramadol Hcl 50 Mg Tablet) 50 mg PO BID PRN PRN Reason: Pain, Severe (Pain Scale 7-10) Last Admin: 10/06/22 22:11 Dose: 50 mg Documented By: KATH Labs CBC & Chem 7: 10/07/22 08:45 10/07/22 08:45 Labs: Laboratory Results - last 24 hr 10/07/22 10/07/22 10/07/22 08:45 08:45 08:49 MCV 95.2 MCH 29.1 MCHC 30.5 L RDW 15.9 Plt Count 159 L MPV 10.2 Immature Gran % (Auto) 2.2 H Neut % (Auto) 78.7 H Lymph % (Auto) 9.1 L [place] % (Auto) 9.7 Eos % (Auto) 0.1 Baso % (Auto) 0.2 Lymph # (Auto) 0.9 L [place] # (Auto) 1.0 Eos # (Auto) 0.0 Baso # (Auto) 0.0 Abs Immat Gran (auto) 0.23 H Absolute Neuts (auto) 8.1 Absolute Nucleated RBC 0.040 H Nucleated RBC % (auto) 0.4 H VBG pH 7.35 VBG pCO2 62 VBG pO2 92 VBG HCO3 34 H VBG O2 Saturation 97.0 VBG Base Excess 7.0 Anion Gap 13 Estim Creat Clear Calc 65.4 Estimated GFR 60 Random Glucose 199 H Calcium 9.9 D Phosphorus 2.5 L Magnesium 2.6 Albumin 4.4 Microbiology Microbiology Results: Microbiology 10/05/22 05:12 Gram Stain - Final Sputum - Expectorated Sputum Culture - Final 10/04/22 18:42 Blood Culture - Preliminary Blood - Venous No growth after 48 hours. 10/04/22 18:42 Blood Culture - Preliminary Blood - Venous No growth after 48 hours. Assessment and Plan (1) NSTEMI (non-ST elevated myocardial infarction): Status: Acute (2) Acute on chronic diastolic (congestive) heart failure: Status: Acute (3) YUDELKA (acute kidney injury): Status: Acute Plan 77-year-old lady with underlying history of COPD,? chronic D CHF, WOJCIECH, obesity admitted on 10/04/2022 with dyspnea and hypoxia. found to have acute kidney injury, and hypotension required ICU admission for vasopressor support. improved well with diuresis. Acute on chronic hypoxic respiratory failure secondary to diastolic CHF exacerbation Responding well to active diuresis Continue IV Bumex Add metolazone Cardiology input appreciated Monitor intake and output Wean oxygen down as tolerated NSTEMI Finished 48 hours of heparin drip Continue aspirin and statin Cardiology input appreciated, not a good candidate at present due to breathing issues so ischemic workup will be done as outpatient Acute on chronic kidney injury Secondary to CHF Improving Monitor BMP and urine output Transaminitis Secondary to congestion from CHF Improving with diuresis DVT PPX Heparin The patient will need overnight hospital stay to continue treatment for CHF exacerbation with IV Bumex pending weaning off oxygen and safe discharge plan. Time Spent With Patient Time: Total time managing care of this patient today ____ minutes. Quality Stroke Does the patient have a stroke diagnosis?: No VTE Prior VTE?: No VTE Risk Level:: Medical - moderate - high VTE Device Contraindication: N/A - Device Ordered VTE Drug Contraindication: N/A - Med Ordered
[2022-10-07] MEDS: traMADoL HCL 50 MG TABLET PO (19:01)
[2022-10-07] MEDS: guaiFENesin LA 600 MG TAB.ER.12H PO (20:35)
[2022-10-07] MEDS: Multivitamin TABLET 1 TAB PO (20:35)
[2022-10-07] MEDS: Cholecalciferol (Vitamin D3) 10 MCG TABLET PO (20:35)
[2022-10-07] MEDS: Metoprolol Tartrate 12.5 MG HALFTAB PO (20:35)
[2022-10-07] MEDS: Docusate Sodium 100 MG CAPSULE PO (20:35)
[2022-10-07] MEDS: Atorvastatin Calcium 40 MG TABLET PO (20:35)
[2022-10-08] VITALS (13 sets, daily range): BP systolic 110–177; BP diastolic 57–90; PULSE 68–123; RESP 15–25; TEMP 35.9–37; O2SAT 77–96; BMI 43.1
[2022-10-08] MEDS: Heparin Sodium,Porcine 5,000 UNIT/ML VIAL 5000 UNIT SUBCUT ×2 (00:03→10:11)
[2022-10-08] MEDS: Albuterol/Iprat 2.5/0.5MG 3 ML AMPUL.NEB INHALE ×5 (03:17→19:45)
[2022-10-08] MEDS: Omeprazole 20 MG CAPSULE.DR PO (06:27)
[2022-10-08] MEDS: Fluticasone/Vilanterol 100/25 BLST.W.DEV 1 PUFF INHALE (08:21)
[2022-10-08 09:17] LABS: Alanine Aminotransferase 727 U/L (0-31); Alkaline Phosphatase 129 U/L (39-117); Aspartate Amino Transferase 300 U/L (5-31); Bilirubin Direct 0.4 mg/dL (0.0-0.5); Bilirubin Total 0.9 mg/dL (0.0-1.0); Total Protein 6.5 g/dL (6.5-8.0)
[2022-10-08 09:18] LABS: B Type Natriuretic Peptide 677 pg/mL (<100)
[2022-10-08 09:20] LABS: Anion Gap 14 (12-20); Blood Urea Nitrogen 35 mg/dL (9-16); Calcium 9.9 mg/dL (8.4-10.2); Carbon Dioxide 39 mmol/L (22-29); Chloride 97 mmol/L (96-108); Creatinine Clr Calc Pharmacy 84.2; Estimated Glomerular Filt Rate > 60; Glucose Random 120 mg/dL (60-115); Potassium 4.1 mmol/L (3.3-5.1); Sodium 146 mmol/L (135-145)
[2022-10-08] MEDS: Bumetanide 1 MG/4 ML VIAL IVPUSH (10:11)
[2022-10-08] MEDS: Metoprolol Tartrate 12.5 MG HALFTAB PO ×2 (10:12→22:45)
[2022-10-08] MEDS: Aspirin Enteric Coated 81 MG TABLET.DR PO (10:13)
[2022-10-08] MEDS: guaiFENesin LA 600 MG TAB.ER.12H PO ×4 (10:13→22:45)
[2022-10-08] MEDS: amLODIPine Besylate 5 MG TABLET PO (10:13)
[2022-10-08] MEDS: Losartan Potassium 25 MG TABLET PO (10:13)
[2022-10-08] MEDS: TiZANidine HCL 4 MG TABLET PO (10:14)
--- NOTE | 2022-10-08 11:47 | HO.PM.IMPN ---
Subjective Subjective Date of Service: 10/08/22 Interval History: seen and evaluated this morning for hypoxic type respiratory failure Feels improvement in her breathing with decreased oxygen supplement Still on 4 L of oxygen, 6 with ambulation Report diuresing well No other overnight events Review of Systems Review of Systems: Yes all other systems are reviewed and are negative Physical Exam Vital Signs: Vital Signs: Last Vital Signs Temp 98.6 F 10/08/22 08:00 Pulse 89 10/08/22 08:26 Resp 18 10/08/22 08:26 BP 155/74 H 10/08/22 08:00 Pulse Ox 92 10/08/22 08:00 O2 Del Method 10/08/22 08:00 O2 Flow Rate 5.0 10/08/22 08:00 FiO2 50 10/08/22 04:00 Oxygen Flow Rate 6 10/05/22 03:30 BMI result Body Mass Index 43.1 Const: Other: Constitutional : Awake, interactive, not in distress Neck : Normal inspection, Supple Cardiovascular : RRR, elevated JVP, trace bilateral lower extremity edema Respiratory : good bilateral air entry, basal fine crackles, on oxygen supplement Gastrointestinal: soft, lax, Normal bowel sounds, Non tender Skin : Warm, Dry Neurological : Alert & oriented x3, No focal deficit Objective Data Active Medications Acetaminophen (Acetaminophen 325 Mg Tablet) 650 mg PO Q6H PRN PRN Reason: Headache Last Admin: 10/05/22 10:44 Dose: 650 mg Documented By: KATH Albuterol Sulfate (Albuterol Sulfate (0.083%) 2.5 Mg/3 Ml Vial.Neb) 2.5 mg INHALE Q4H PRN PRN Reason: Shortness Of Breath Albuterol Sulfate (Albuterol Sulfate 90 Mcg 8 Gm Inhaler) 2 puff INHALE QID PRN PRN Reason: Shortness Of Breath Albuterol/Ipratropium (Albuterol/Iprat 2.5/0.5mg 3 Ml Ampul.Neb) 3 ml INHALE RQ4H [facility] Last Admin: 10/08/22 08:21 Dose: 3 ml Documented By: SARAVANAN Amlodipine Besylate (Amlodipine Besylate 5 Mg Tablet) 5 mg PO DAILY [facility]; Protocol Last Admin: 10/08/22 10:13 Dose: 5 mg Documented By: DANA Aspirin (Aspirin Enteric Coated 81 Mg Tablet.) 81 mg PO DAILY [facility] Last Admin: 10/08/22 10:13 Dose: 81 mg Documented By: DANA Atorvastatin Calcium (Atorvastatin Calcium 40 Mg Tablet) 40 mg PO BEDTIME [facility] Last Admin: 10/07/22 20:35 Dose: 40 mg Documented By: RAIN Bumetanide (Bumetanide 1 Mg/4 Ml Vial) 1 mg IVPUSH BID@0900,1700 [facility]; Protocol Last Admin: 10/08/22 10:11 Dose: 1 mg Documented By: DANA Buspirone HCl (Buspirone Hcl 10 Mg Tablet) 10 mg PO BID PRN PRN Reason: Anxiety Calcium Carbonate (Calcium Carbonate 750 Mg Tab.Chew) 750 mg PO Q4H PRN PRN Reason: Heartburn Docusate Sodium (Docusate Sodium 100 Mg Capsule) 100 mg PO BID [facility] Last Admin: 10/07/22 20:35 Dose: 100 mg Documented By: RAIN Fluticasone/Vilanterol (Fluticasone/Vilanterol 100/25 Blst.W.Dev) 1 puff INHALE RDAILY [facility] Last Admin: 10/08/22 08:21 Dose: 1 puff Documented By: SARAVANAN Guaifenesin (Guaifenesin [place] 600 Mg Tab.Er.12h) 600 mg PO BID [facility] Last Admin: 10/08/22 10:13 Dose: 600 mg Documented By: DANA Heparin Sodium (Porcine) (Heparin Sodium,Porcine 5,000 Unit/Ml Vial) 5,000 unit SUBCUT Q8H [facility] Last Admin: 10/08/22 10:11 Dose: 5,000 unit Documented By: DANA Losartan Potassium (Losartan Potassium 25 Mg Tablet) 25 mg PO DAILY [facility]; Protocol Last Admin: 10/08/22 10:13 Dose: 25 mg Documented By: DANA Metoprolol Tartrate (Metoprolol Tartrate 12.5 Mg Halftab) 12.5 mg PO BID [facility]; Protocol Last Admin: 10/08/22 10:12 Dose: 12.5 mg Documented By: DANA Multivitamins/Vitamin C (Multivitamin Tablet) 1 tab PO BEDTIME [facility] Last Admin: 12/23/22 20:35 Dose: 1 tab Documented By: RAIN Omeprazole (Omeprazole 20 Mg Capsule.Dr) 20 mg PO DAILY@0630 [facility] Last Admin: 10/08/22 06:27 Dose: 20 mg Documented By: LUCI Pharmacy Consult (Consult Rx Perform Med Rec) 1 each MISCELLANE ONCE PRN PRN Reason: Consult order Tizanidine HCl (Tizanidine Hcl 4 Mg Tablet) 4 mg PO DAILY [facility] Last Admin: 10/08/22 10:14 Dose: 4 mg Documented By: DANA Tramadol HCl (Tramadol Hcl 50 Mg Tablet) 50 mg PO BID PRN PRN Reason: Pain, Severe (Pain Scale 7-10) Last Admin: 10/07/22 19:01 Dose: 50 mg Documented By: RAIN Vitamin D (Cholecalciferol (Vitamin D3) 10 Mcg Tablet) 10 mcg PO BEDTIME [facility] Last Admin: 10/07/22 20:35 Dose: 10 mcg Documented By: RAIN Labs CBC & Chem 7: 10/07/22 08:45 10/08/22 07:04 Labs: Laboratory Results - last 24 hr 10/08/22 10/08/22 10/08/22 07:04 07:04 07:04 Anion Gap 14 Estim Creat Clear Calc 84.2 Estimated GFR > 60 Random Glucose 120 H Calcium 9.9 Total Bilirubin 0.9 Direct Bilirubin 0.4 AST 300 H ALT 727 H Alkaline Phosphatase 129 H B-Natriuretic Peptide 677 H Total Protein 6.5 Albumin 4.0 Microbiology Microbiology Results: Microbiology 10/05/22 05:12 Gram Stain - Final Sputum - Expectorated Sputum Culture - Final Assessment and Plan (1) NSTEMI (non-ST elevated myocardial infarction): Status: Acute (2) Acute on chronic diastolic (congestive) heart failure: Status: Acute Plan 77-year-old lady with underlying history of COPD,? chronic D CHF, WOJCIECH, obesity admitted on 10/04/2022 with dyspnea and hypoxia. found to have acute kidney injury, and hypotension required ICU admission for vasopressor support. improved well with diuresis. Acute on chronic hypoxic respiratory failure secondary to diastolic CHF exacerbation Responding well to active diuresis discontinue IV Bumex restart torsemide 20 mg Cardiology input appreciated Monitor intake and output Wean oxygen down as tolerated incentive spirometry Evaluate for home oxygen NSTEMI Finished 48 hours of heparin drip Continue aspirin and statin Cardiology input appreciated, not a good candidate at present due to breathing issues so ischemic workup will be done as outpatient Acute on chronic kidney injury Secondary to CHF Improving Monitor BMP and urine output Hypernatremia Sodium of 146 this morning, secondary to diuresis Monitor after changing diuretics Transaminitis Secondary to congestion from CHF Improving with diuresis DVT PPX Heparin The patient will need overnight hospital stay to continue treatment for CHF exacerbation pending weaning off oxygen and safe discharge plan. Time Spent With Patient Time: Total time managing care of this patient today ____ minutes. Quality Stroke Does the patient have a stroke diagnosis?: No VTE Prior VTE?: No VTE Risk Level:: Medical - moderate - high VTE Device Contraindication: N/A - Device Ordered VTE Drug Contraindication: N/A - Med Ordered
--- NOTE | 2022-10-08 13:20 | PM.PNCARD ---
Subjective Subjective Date of Service: 10/08/22 Principal diagnosis: CHF, hypoxic resp failure Interval history: Patient was seen and examined at bedside. Overall improving with improving kidney function and liver function. She is in negative fluid balance. Physical Exam Vital Signs: Last Vital Signs Temp 97.1 F 10/08/22 11:48 Pulse 68 10/08/22 11:55 Resp 20 10/08/22 11:55 BP 118/57 L 10/08/22 11:48 Pulse Ox 93 10/08/22 11:48 O2 Del Method 10/08/22 11:48 O2 Flow Rate 4 10/08/22 11:48 FiO2 50 10/08/22 04:00 Oxygen Flow Rate 6 10/05/22 03:30 BMI result Body Mass Index 43.1 GENERAL APPEARANCE: in no acute distress, on supplemental oxygen. NECK: no carotid bruit, elevated jugular venous distention. SKIN: no suspicious lesions, warm and dry. HEART: Systolic murmur aortic area, regular rate and rhythm. LUNGS: clear to auscultation anteriorly. ABDOMEN: soft, nontender. EXTREMITIES: Positive edema. PERIPHERAL PULSES: equal. NEUROLOGIC: No gross deficits, AAO X 3 Objective Labs and Meds Result diagrams: 10/07/22 08:45 10/08/22 07:04 Lab results: Laboratory Results - last 24 hr 10/08/22 10/08/22 10/08/22 07:04 07:04 07:04 Sodium 146 H Potassium 4.1 Chloride 97 Carbon Dioxide 39 H Anion Gap 14 BUN 35 H Creatinine 0.70 Estim Creat Clear Calc 84.2 Estimated GFR > 60 Random Glucose 120 H Calcium 9.9 Total Bilirubin 0.9 Direct Bilirubin 0.4 AST 300 H ALT 727 H Alkaline Phosphatase 129 H B-Natriuretic Peptide 677 H Total Protein 6.5 Albumin 4.0 Progress Note: A&P Assessment and plan (1) Acute on chronic diastolic (congestive) heart failure: Status: Acute (2) NSTEMI (non-ST elevated myocardial infarction): Status: Acute Plan 77-year-old female presented with acute decompensated congestive heart failure. Clinically she is still volume overloaded. Continue IV diuretics. Overall improving with improving kidney function and liver function. Echocardiography did not show any obvious wall motion abnormalities but the test was limited. LVEF was normal. She had NSTEMI on admission which can be due to congestive heart failure and elevated filling pressures. In any case she will require ischemic evaluation and I will start with stress testing once she is stable. Thank you for allowing me to participate in the care of your patient. Please feel free to contact me if you have any questions. Time Spent With Patient Time: Total time managing care of this patient today ____ minutes. Progress Note: Quality Stroke Does the patient have a stroke diagnosis?: No Procedures Date of Service Date of Service: 10/08/22
[2022-10-08] MEDS: traMADoL HCL 50 MG TABLET PO (15:40)
--- NOTE | 2022-10-08 15:46 | ECG_ITS ---
Test Reason : cp Blood Pressure : / mmHG Vent. Rate : 078 BPM Atrial Rate : 078 BPM P-R Int : 126 ms QRS Dur : 136 ms QT Int : 384 ms P-R-T Axes : 059 190 101 degrees QTc Int : 437 ms Normal sinus rhythm with sinus arrhythmia Right bundle branch block Abnormal ECG When compared with ECG of 07-OCT-2022 01:40, Premature atrial complexes are no longer Present Questionable change in QRS duration Referred By: Carmel Disla Electronically Signed By:KAL GRAVES MD
--- NOTE | 2022-10-08 16:05 | MHC.CM.PN ---
per pt not ready for dc till monday
[2022-10-08] MEDS: Benzonatate 100 MG CAPSULE PO ×2 (17:19→22:44)
[2022-10-08] MEDS: Atorvastatin Calcium 40 MG TABLET PO (22:44)
[2022-10-08] MEDS: Cholecalciferol (Vitamin D3) 10 MCG TABLET PO (22:44)
[2022-10-08] MEDS: Docusate Sodium 100 MG CAPSULE PO (22:45)
[2022-10-08] MEDS: Multivitamin TABLET 1 TAB PO (22:45)
[2022-10-09] VITALS (14 sets, daily range): BP systolic 79–142; BP diastolic 40–72; PULSE 58–98; RESP 16–22; TEMP 36.2–37.1; O2SAT 87–95
[2022-10-09] MEDS: Omeprazole 20 MG CAPSULE.DR PO (05:37)
--- NOTE | 2022-10-09 06:05 | PC.RT ---
Pt oxygen saturation was 68% 0n RA. Pt placed on 2L NC for NOC oximetry test.
[2022-10-09] MEDS: Albuterol/Iprat 2.5/0.5MG 3 ML AMPUL.NEB INHALE ×4 (09:01→19:40)
[2022-10-09] MEDS: amLODIPine Besylate 5 MG TABLET PO (09:44)
[2022-10-09] MEDS: Losartan Potassium 25 MG TABLET PO (09:45)
[2022-10-09] MEDS: Docusate Sodium 100 MG CAPSULE PO ×2 (09:45→20:04)
[2022-10-09] MEDS: guaiFENesin LA 600 MG TAB.ER.12H PO ×2 (09:45→20:04)
[2022-10-09] MEDS: Metoprolol Tartrate 12.5 MG HALFTAB PO (09:45)
[2022-10-09] MEDS: Benzonatate 100 MG CAPSULE PO ×3 (09:45→20:08)
[2022-10-09] MEDS: TiZANidine HCL 4 MG TABLET PO (09:51)
--- NOTE | 2022-10-09 11:44 | HO.PM.IMPN ---
Subjective Subjective Date of Service: 10/09/22 Interval History: seen and evaluated this morning for hypoxic type respiratory failure Feels improvement in her breathing with decreased oxygen supplement had oximetry study overnight Still on 4 L of oxygen No other overnight events Review of Systems Review of Systems: Yes all other systems are reviewed and are negative Physical Exam Vital Signs: Vital Signs: Last Vital Signs Temp 97.7 F 10/09/22 08:00 Pulse 88 10/09/22 09:03 Resp 20 10/09/22 09:03 BP 142/72 H 10/09/22 08:00 Pulse Ox 92 10/09/22 09:42 O2 Del Method 10/09/22 09:42 O2 Flow Rate 4 10/09/22 09:42 FiO2 50 10/08/22 04:00 Oxygen Flow Rate 6 10/05/22 03:30 BMI result Body Mass Index 43.1 Const: Other: Constitutional : Awake, interactive, not in distress Neck : Normal inspection, Supple Cardiovascular : RRR, elevated JVP, trace bilateral lower extremity edema Respiratory : good bilateral air entry, basal fine crackles, on oxygen supplement Gastrointestinal: soft, lax, Normal bowel sounds, Non tender Skin : Warm, Dry Neurological : Alert & oriented x3, No focal deficit Objective Data Active Medications Acetaminophen (Acetaminophen 325 Mg Tablet) 650 mg PO Q6H PRN PRN Reason: Headache Last Admin: 10/05/22 10:44 Dose: 650 mg Documented By: KATH Acetazolamide (Acetazolamide 250 Mg Tablet) 500 mg PO BID [facility] Last Admin: 10/09/22 09:45 Dose: 500 mg Documented By: ANNEL Albuterol Sulfate (Albuterol Sulfate (0.083%) 2.5 Mg/3 Ml Vial.Neb) 2.5 mg INHALE Q4H PRN PRN Reason: Shortness Of Breath Albuterol Sulfate (Albuterol Sulfate 90 Mcg 8 Gm Inhaler) 2 puff INHALE QID PRN PRN Reason: Shortness Of Breath Albuterol/Ipratropium (Albuterol/Iprat 2.5/0.5mg 3 Ml Ampul.Neb) 3 ml INHALE RQ4H [facility] Last Admin: 10/09/22 09:01 Dose: 3 ml Documented By: COLLETTE Amlodipine Besylate (Amlodipine Besylate 5 Mg Tablet) 5 mg PO DAILY [facility]; Protocol Last Admin: 10/09/22 09:44 Dose: 5 mg Documented By: ANNEL Aspirin (Aspirin Enteric Coated 81 Mg Tablet.Dr) 81 mg PO DAILY [facility] Last Admin: 10/08/22 10:13 Dose: 81 mg Documented By: DANA Atorvastatin Calcium (Atorvastatin Calcium 40 Mg Tablet) 40 mg PO BEDTIME [facility] Last Admin: 10/08/22 22:44 Dose: 40 mg Documented By: ANTOIC Benzonatate (Benzonatate 100 Mg Capsule) 100 mg PO TID [facility] Last Admin: 10/09/22 09:45 Dose: 100 mg Documented By: ANNEL Buspirone HCl (Buspirone Hcl 10 Mg Tablet) 10 mg PO BID PRN PRN Reason: Anxiety Calcium Carbonate (Calcium Carbonate 750 Mg Tab.Chew) 750 mg PO Q4H PRN PRN Reason: Heartburn Docusate Sodium (Docusate Sodium 100 Mg Capsule) 100 mg PO BID [facility] Last Admin: 10/09/22 09:45 Dose: 100 mg Documented By: ANNEL Fluticasone/Vilanterol (Fluticasone/Vilanterol 100/25 Blst.W.Dev) 1 puff INHALE RDAILY [facility] Last Admin: 10/09/22 09:03 Dose: Not Given Documented By: COLLETTE Non-Admin Reason: Med Not Available Guaifenesin (Guaifenesin La 600 Mg Tab.Er.12h) 600 mg PO BID [facility] Last Admin: 10/09/22 10:55 Dose: Not Given Documented By: ANNEL Non-Admin Reason: Previously Administered Heparin Sodium (Porcine) (Heparin Sodium,Porcine 5,000 Unit/Ml Vial) 5,000 unit SUBCUT Q8H [facility] Last Admin: 10/08/22 10:11 Dose: 5,000 unit Documented By: DANA Losartan Potassium (Losartan Potassium 25 Mg Tablet) 25 mg PO DAILY [facility]; Protocol Last Admin: 10/09/22 09:45 Dose: 25 mg Documented By: ANNEL Metoprolol Tartrate (Metoprolol Tartrate 12.5 Mg Halftab) 12.5 mg PO BID [facility]; Protocol Last Admin: 10/09/22 09:45 Dose: 12.5 mg Documented By: ANNEL Multivitamins/Vitamin C (Multivitamin Tablet) 1 tab PO BEDTIME [facility] Last Admin: 10/08/22 22:45 Dose: 1 tab Documented By: TAL Omeprazole (Omeprazole 20 Mg Capsule.Dr) 20 mg PO DAILY@0630 [facility] Last Admin: 10/09/22 05:37 Dose: 20 mg Documented By: TAL Pharmacy Consult (Consult Rx Perform Med Rec) 1 each MISCELLANE ONCE PRN PRN Reason: Consult order Tizanidine HCl (Tizanidine Hcl 4 Mg Tablet) 4 mg PO DAILY [facility] Last Admin: 10/09/22 09:51 Dose: 4 mg Documented By: ANNEL Torsemide (Torsemide 20 Mg Tablet) 20 mg PO DAILY [facility]; Protocol Last Admin: 10/09/22 09:43 Dose: 20 mg Documented By: ANNEL Tramadol HCl (Tramadol Hcl 50 Mg Tablet) 50 mg PO BID PRN PRN Reason: Pain, Severe (Pain Scale 7-10) Last Admin: 10/08/22 15:40 Dose: 50 mg Documented By: DANA Vitamin D (Cholecalciferol (Vitamin D3) 10 Mcg Tablet) 10 mcg PO BEDTIME [facility] Last Admin: 10/08/22 22:44 Dose: 10 mcg Documented By: TAL Labs CBC & Chem 7: 10/07/22 08:45 10/08/22 07:04 Labs: Laboratory Results - last 24 hr 10/09/22 05:22 O2 Saturation 89.0 ABG pH at Pt Temp 7.44 ABG pCO2 at Pt Temp 56 H ABG pO2 at Pt Temp 59 L ABG HCO3 39 H ABG Base Excess (Actual) 12.7 Assessment and Plan (1) NSTEMI (non-ST elevated myocardial infarction): Status: Acute (2) Acute on chronic diastolic (congestive) heart failure: Status: Acute (3) YUDELKA (acute kidney injury): Status: Acute Plan 77-year-old lady with underlying history of COPD,? chronic D CHF, WOJCIECH, obesity admitted on 10/04/2022 with dyspnea and hypoxia. found to have acute kidney injury, and hypotension required ICU admission for vasopressor support. improved well with diuresis. Acute on chronic hypoxic respiratory failure secondary to diastolic CHF exacerbation Responding well to active diuresis Continue torsemide 20 mg Cardiology input appreciated Monitor intake and output Wean oxygen down as tolerated incentive spirometry will likely need home oxygen overnight oximetry study done for evaluation of BiPAP need at home NSTEMI Finished 48 hours of heparin drip Continue aspirin and statin Cardiology input appreciated, not a good candidate at present due to breathing issues so ischemic workup will be done as outpatient Acute on chronic kidney injury Secondary to CHF Improving Monitor BMP and urine output Hypernatremia Sodium of 146 this morning, secondary to diuresis Monitor after changing diuretics Transaminitis Secondary to congestion from CHF Improving with diuresis DVT PPX Heparin The patient will need overnight hospital stay to continue treatment for CHF exacerbation pending weaning off oxygen and safe discharge plan. Time Spent With Patient Time: Total time managing care of this patient today ____ minutes. Quality Stroke Does the patient have a stroke diagnosis?: No VTE Prior VTE?: No VTE Risk Level:: Medical - moderate - high VTE Device Contraindication: N/A - Device Ordered VTE Drug Contraindication: N/A - Med Ordered
[2022-10-09] MEDS: guaiFENesin 100 MG/5 ML LIQUID 10 ML PO (17:36)
--- NOTE | 2022-10-09 17:47 | PM.PNCARD ---
Subjective Subjective Date of Service: 10/09/22 Principal diagnosis: CHF, hypoxic resp failure Interval history: Patient seen examined at bedside. Denying any significant symptoms. Continues to be on supplemental oxygen. Physical Exam Vital Signs: Last Vital Signs Temp 97.3 F 10/09/22 15:09 Pulse 98 10/09/22 16:05 Resp 22 H 10/09/22 16:05 BP 79/40 L 10/09/22 15:09 Pulse Ox 90 L 10/09/22 15:09 O2 Del Method 10/09/22 15:09 O2 Flow Rate 4 10/09/22 15:09 FiO2 50 10/08/22 04:00 Oxygen Flow Rate 6 10/05/22 03:30 BMI result Body Mass Index 43.1 GENERAL APPEARANCE: in no acute distress, on supplemental oxygen. NECK: no carotid bruit, no significant jugular venous distention. SKIN: no suspicious lesions, warm and dry. HEART: Systolic murmur aortic area, regular rate and rhythm. LUNGS: Crackles both bases. ABDOMEN: soft, nontender. EXTREMITIES: Mild edema. PERIPHERAL PULSES: equal. NEUROLOGIC: No gross deficits, AAO X 3 Objective Labs and Meds Result diagrams: 10/07/22 08:45 10/08/22 07:04 Lab results: Laboratory Results - last 24 hr 10/09/22 05:22 O2 Saturation 89.0 ABG pH at Pt Temp 7.44 ABG pCO2 at Pt Temp 56 H ABG pO2 at Pt Temp 59 L ABG HCO3 39 H ABG Base Excess (Actual) 12.7 Progress Note: A&P Assessment and plan (1) Acute on chronic diastolic (congestive) heart failure: Status: Acute Plan 77-year-old female presenting with acute on chronic diastolic heart failure. She also had NSTEMI in this presentation. LVEF is normal but wall motion abnormality was difficult to assess on the echocardiogram. Still on oxygen and has bilateral crackles. Would give her 40 mg IV Lasix x1. Increase the torsemide from wire to 40 mg daily. Will bring her back as outpatient after discharge do stress testing and further evaluation. Thank you for allowing me to participate in the care of your patient. Please feel free to contact me if you have any questions. Time Spent With Patient Time: Total time managing care of this patient today ____ minutes. Progress Note: Quality Stroke Does the patient have a stroke diagnosis?: No Procedures Date of Service Date of Service: 10/09/22
--- NOTE | 2022-10-09 20:02 | PC.NURSE ---
Javed Cath DC at 20:00 per MD order. Voiding trial ends 10/10 at 2:00.
[2022-10-09] MEDS: Multivitamin TABLET 1 TAB PO (20:04)
[2022-10-09 20:08] LABS: PLT CLUMP 1; SCAN SMEAR FLAG 1
[2022-10-09] MEDS: Cholecalciferol (Vitamin D3) 10 MCG TABLET PO (20:08)
[2022-10-09] MEDS: Atorvastatin Calcium 40 MG TABLET PO (20:08)
[2022-10-09] MEDS: Acetaminophen 325 MG TABLET 650 MG PO (20:08)
[2022-10-09 20:10] LABS: Eosinophils Absolute Auto 0.1 X10*3/uL (0.0-0.4); Eosinophils Percent Auto 0.6 % (0-4); Imm Gran Pct Auto 1.5 % (0.0-0.4); Red Cell Distribution Width 15.9 % (11.0-16.0)
[2022-10-09 20:17] LABS: Basophils Absolute Auto 0.1 X10*3/uL (0.0-0.2); Basophils Percent Auto 0.4 % (0-2); Hematocrit 42.8 % (37.0-47.0); Hemoglobin 13.6 g/dl (12.0-16.0); Lymphocytes Absolute Auto 1.6 X10*3/uL (1.2-4.9); Lymphocytes Percent Auto 11.5 % (20-40); Mean Corpuscular HGB Conc 31.8 g/dl (31.0-35.0); Mean Corpuscular Hemoglobin 29.8 pg (27.0-33.0); Mean Corpuscular Volume 93.9 fL (80.0-98.0); Mean Platelet Volume 11.6 fL (9.4-12.3); Monocytes Absolute Auto 1.6 X10*3/uL (0.1-1.2); Neutrophils Absolute Auto 10.1 x10*3/uL (2.0-8.3); Red Blood Count 4.56 X10*6/uL (4.20-5.50)
[2022-10-09 20:20] LABS: Lactic Acid 1.8 mmol/L (0.5-2.0)
[2022-10-09 20:21] LABS: Platelet Count 151 X10*3/uL (160-400); White Blood Count 13.7 X10*3/uL (4.8-10.8)
[2022-10-09 20:22] LABS: MANUAL DIFF FLAG NO
[2022-10-09 20:25] LABS: Anion Gap 14 (12-20); Blood Urea Nitrogen 44 mg/dL (9-16); Calcium 9.6 mg/dL (8.4-10.2); Carbon Dioxide 33 mmol/L (22-29); Chloride 96 mmol/L (96-108); Creatinine Clr Calc Pharmacy 44.4; Estimated Glomerular Filt Rate 38; Glucose Random 168 mg/dL (60-115); Potassium 4.2 mmol/L (3.3-5.1); Sodium 139 mmol/L (135-145)
[2022-10-09 20:28] LABS: B Type Natriuretic Peptide 155 pg/mL (<100)
[2022-10-10] VITALS (10 sets, daily range): BP systolic 93–162; BP diastolic 51–68; PULSE 73–102; RESP 17–20; TEMP 36.5–37.1; O2SAT 91–97; BMI 42.7
[2022-10-10] MEDS: Albuterol/Iprat 2.5/0.5MG 3 ML AMPUL.NEB INHALE ×5 (00:10→19:39)
--- NOTE | 2022-10-10 01:50 | PC.NURSE ---
at 23:50 patient is angry about CPAP and is requesting removal immediately. MD Kothari made aware. Pt is willing to wear/wearing supplemental [address] of at 4L via NC. During sleep Pt desats 80-90% on 4L, intermittently. When awake tolerates supplemental 02 and is able to maintain above 90% on 4L.
[2022-10-10] MEDS: guaiFENesin 100 MG/5 ML LIQUID 10 ML PO ×3 (02:36→19:32)
[2022-10-10] MEDS: Omeprazole 20 MG CAPSULE.DR PO (06:12)
[2022-10-10 07:37] LABS: Hematocrit 40.8 % (37.0-47.0); Hemoglobin 12.8 g/dl (12.0-16.0); Mean Corpuscular HGB Conc 31.4 g/dl (31.0-35.0); Mean Corpuscular Hemoglobin 29.7 pg (27.0-33.0); Mean Corpuscular Volume 94.7 fL (80.0-98.0); Platelet Count 135 X10*3/uL (160-400); Red Blood Count 4.31 X10*6/uL (4.20-5.50); Red Cell Distribution Width 15.7 % (11.0-16.0); White Blood Count 11.2 X10*3/uL (4.8-10.8)
[2022-10-10] MEDS: Fluticasone/Vilanterol 100/25 BLST.W.DEV 1 PUFF INHALE (08:33)
[2022-10-10 09:10] LABS: Anion Gap 13 (12-20); Blood Urea Nitrogen 46 mg/dL (9-16); Calcium 9.4 mg/dL (8.4-10.2); Carbon Dioxide 36 mmol/L (22-29); Chloride 94 mmol/L (96-108); Creatinine Clr Calc Pharmacy 54.8; Estimated Glomerular Filt Rate 49; Glucose Random 91 mg/dL (60-115); Potassium 3.5 mmol/L (3.3-5.1); Sodium 139 mmol/L (135-145)
[2022-10-10] MEDS: Torsemide 20 MG TABLET 40 MG PO (09:49)
[2022-10-10] MEDS: guaiFENesin LA 600 MG TAB.ER.12H PO ×2 (09:49→19:32)
[2022-10-10] MEDS: Losartan Potassium 25 MG TABLET PO (09:50)
[2022-10-10] MEDS: TiZANidine HCL 4 MG TABLET PO (09:50)
[2022-10-10] MEDS: Docusate Sodium 100 MG CAPSULE PO ×2 (09:50→19:32)
[2022-10-10] MEDS: Heparin Sodium,Porcine 5,000 UNIT/ML VIAL 5000 UNIT SUBCUT ×2 (09:50→17:47)
[2022-10-10] MEDS: Aspirin Enteric Coated 81 MG TABLET.DR PO (09:50)
[2022-10-10] MEDS: Metoprolol Tartrate 12.5 MG HALFTAB PO (09:50)
[2022-10-10] MEDS: Benzonatate 100 MG CAPSULE PO ×3 (09:50→19:33)
--- NOTE | 2022-10-10 09:53 | HO.PM.IMPN ---
Subjective Subjective Date of Service: 10/10/22 Interval History: seen and evaluated this morning for hypoxic type respiratory failure was noted be with L dryness in her throat overnight using the BiPAP Developed hypotension events last night, wound with to IV fluids Still on 4 L of oxygen No other overnight events Review of Systems Review of Systems: Yes all other systems are reviewed and are negative Physical Exam Vital Signs: Vital Signs: Last Vital Signs Temp 98.1 F 10/10/22 07:58 Pulse 102 H 10/10/22 09:22 Resp 20 10/10/22 09:22 BP 162/68 H 10/10/22 07:58 Pulse Ox 92 10/10/22 07:58 O2 Del Method 10/10/22 07:58 O2 Flow Rate 5 10/10/22 07:58 FiO2 50 10/09/22 23:53 Oxygen Flow Rate 6 10/05/22 03:30 BMI result Body Mass Index 42.7 Const: Other: Constitutional : Awake, interactive, not in distress Neck : Normal inspection, Supple Cardiovascular : RRR, mildly elevated JVP, trace bilateral lower extremity edema Respiratory : good bilateral air entry, basal fine crackles, on oxygen supplement Gastrointestinal: soft, lax, Normal bowel sounds, Non tender Skin : Warm, Dry Neurological : Alert & oriented x3, No focal deficit Objective Data Active Medications Acetaminophen (Acetaminophen 325 Mg Tablet) 650 mg PO Q6H PRN PRN Reason: Headache Last Admin: 10/09/22 20:08 Dose: 650 mg Documented By: AMILCAR Albuterol Sulfate (Albuterol Sulfate (0.083%) 2.5 Mg/3 Ml Vial.Neb) 2.5 mg INHALE Q4H PRN PRN Reason: Shortness Of Breath Albuterol Sulfate (Albuterol Sulfate 90 Mcg 8 Gm Inhaler) 2 puff INHALE QID PRN PRN Reason: Shortness Of Breath Albuterol/Ipratropium (Albuterol/Iprat 2.5/0.5mg 3 Ml Ampul.Neb) 3 ml INHALE RQ4H [facility] Last Admin: 10/10/22 08:33 Dose: 3 ml Documented By: SARAVANAN Amlodipine Besylate (Amlodipine Besylate 5 Mg Tablet) 5 mg PO DAILY [facility]; Protocol Last Admin: 10/09/22 09:44 Dose: 5 mg Documented By: ANNEL Aspirin (Aspirin Enteric Coated 81 Mg Tablet.) 81 mg PO DAILY [facility] Last Admin: 10/10/22 09:50 Dose: 81 mg Documented By: PETER Atorvastatin Calcium (Atorvastatin Calcium 40 Mg Tablet) 40 mg PO BEDTIME [facility] Last Admin: 10/09/22 20:08 Dose: 40 mg Documented By: AMILCAR Benzonatate (Benzonatate 100 Mg Capsule) 100 mg PO TID [facility] Last Admin: 10/10/22 09:50 Dose: 100 mg Documented By: PETER Buspirone HCl (Buspirone Hcl 10 Mg Tablet) 10 mg PO BID PRN PRN Reason: Anxiety Calcium Carbonate (Calcium Carbonate 750 Mg Tab.Chew) 750 mg PO Q4H PRN PRN Reason: Heartburn Docusate Sodium (Docusate Sodium 100 Mg Capsule) 100 mg PO BID [facility] Last Admin: 10/10/22 09:50 Dose: 100 mg Documented By: PETER Fluticasone/Vilanterol (Fluticasone/Vilanterol 100/25 Blst.W.Dev) 1 puff INHALE RDAILY [facility] Last Admin: 10/10/22 08:33 Dose: 1 puff Documented By: SARAVANAN Guaifenesin (Guaifenesin La 600 Mg Tab.Er.12h) 600 mg PO BID [facility] Last Admin: 10/10/22 09:49 Dose: 600 mg Documented By: PETER Guaifenesin (Guaifenesin 100 Mg/5 Ml Liquid) 10 ml PO Q4H PRN PRN Reason: Cough Last Admin: 10/10/22 06:12 Dose: 10 ml Documented By: MELISSA Heparin Sodium (Porcine) (Heparin Sodium,Porcine 5,000 Unit/Ml Vial) 5,000 unit SUBCUT Q8H [facility] Last Admin: 10/10/22 09:50 Dose: 5,000 unit Documented By: PETER Losartan Potassium (Losartan Potassium 25 Mg Tablet) 25 mg PO DAILY [facility]; Protocol Last Admin: 10/10/22 09:50 Dose: 25 mg Documented By: PETER Metoprolol Tartrate (Metoprolol Tartrate 12.5 Mg Halftab) 12.5 mg PO BID [facility]; Protocol Last Admin: 10/10/22 09:50 Dose: 12.5 mg Documented By: PETER Multivitamins/Vitamin C (Multivitamin Tablet) 1 tab PO BEDTIME [facility] Last Admin: 10/09/22 20:04 Dose: 1 tab Documented By: AMILCAR Omeprazole (Omeprazole 20 Mg Capsule.Dr) 20 mg PO DAILY@0630 [facility] Last Admin: 10/10/22 06:12 Dose: 20 mg Documented By: MELISSA Pharmacy Consult (Consult Rx Perform Med Rec) 1 each MISCELLANE ONCE PRN PRN Reason: Consult order Tizanidine HCl (Tizanidine Hcl 4 Mg Tablet) 4 mg PO DAILY [facility] Last Admin: 10/10/22 09:50 Dose: 4 mg Documented By: PETER Torsemide (Torsemide 20 Mg Tablet) 40 mg PO DAILY [facility]; Protocol Last Admin: 10/10/22 09:49 Dose: 40 mg Documented By: PETER Tramadol HCl (Tramadol Hcl 50 Mg Tablet) 50 mg PO BID PRN PRN Reason: Pain, Severe (Pain Scale 7-10) Last Admin: 10/08/22 15:40 Dose: 50 mg Documented By: DANA Vitamin D (Cholecalciferol (Vitamin D3) 10 Mcg Tablet) 10 mcg PO BEDTIME [facility] Last Admin: 10/09/22 20:08 Dose: 10 mcg Documented By: AMILCAR Labs CBC & Chem 7: 10/10/22 06:41 10/10/22 06:41 Labs: Laboratory Results - last 24 hr 10/09/22 10/09/22 10/09/22 19:58 19:58 19:58 MCV 93.9 MCH 29.8 MCHC 31.8 RDW 15.9 Plt Count 151 L MPV 11.6 Immature Gran % (Auto) 1.5 H Neut % (Auto) 74.0 H Lymph % (Auto) 11.5 L Rankin % (Auto) 12.0 H Eos % (Auto) 0.6 Baso % (Auto) 0.4 Lymph # (Auto) 1.6 Rankin # (Auto) 1.6 H Eos # (Auto) 0.1 Baso # (Auto) 0.1 Abs Immat Gran (auto) 0.20 H Absolute Neuts (auto) 10.1 H Absolute Nucleated RBC 0.000 Nucleated RBC % (auto) 0.0 Anion Gap 14 Estim Creat Clear Calc 44.4 Estimated GFR 38 Random Glucose 168 H Lactic Acid 1.8 Calcium 9.6 B-Natriuretic Peptide 10/09/22 10/10/22 10/10/22 19:58 06:41 06:41 MCV 94.7 MCH 29.7 MCHC 31.4 RDW 15.7 Plt Count 135 L MPV 11.0 Immature Gran % (Auto) Neut % (Auto) Lymph % (Auto) Rankin % (Auto) Eos % (Auto) Baso % (Auto) Lymph # (Auto) Rankin # (Auto) Eos # (Auto) Baso # (Auto) Abs Immat Gran (auto) Absolute Neuts (auto) Absolute Nucleated RBC 0.000 Nucleated RBC % (auto) 0.0 Anion Gap 13 Estim Creat Clear Calc 54.8 Estimated GFR 49 Random Glucose 91 Lactic Acid Calcium 9.4 B-Natriuretic Peptide 155 H Microbiology Microbiology Results: Microbiology 10/09/22 19:55 Urine Culture - Preliminary Urine Catheterized - Javed Catheter Culture too young to evaluate. 10/04/22 18:42 Blood Culture - Final Blood - Venous No growth after 5 days. 10/04/22 18:42 Blood Culture - Final Blood - Venous No growth after 5 days. Assessment and Plan (1) NSTEMI (non-ST elevated myocardial infarction): Status: Acute (2) Acute on chronic diastolic (congestive) heart failure: Status: Acute (3) YUDELKA (acute kidney injury): Status: Acute Plan 77-year-old lady with underlying history of COPD,? chronic D CHF, WOJCIECH, obesity admitted on 10/04/2022 with dyspnea and hypoxia. found to have acute kidney injury, and hypotension required ICU admission for vasopressor support. improved well with diuresis. Acute on chronic hypoxic respiratory failure secondary to diastolic CHF exacerbation Responding well to active diuresis increase torsemide to 40mg Cardiology input appreciated Monitor intake and output Wean oxygen down as tolerated incentive spirometry will likely need home oxygen , to do a home O2 eval upon discharge overnight oximetry study done for evaluation of BiPAP need at home NSTEMI Finished 48 hours of heparin drip Continue aspirin and statin Cardiology input appreciated, not a good candidate at present due to breathing issues so ischemic workup will be done as outpatient hypotension Secondary to blood pressure meds not due to sepsis Recovered with holding BP meds and IV fluids Continue to monitor Acute on chronic kidney injury Secondary to CHF Improving Monitor BMP and urine output Hypernatremia resolved Monitor after changing diuretics Transaminitis Secondary to congestion from CHF Improving with diuresis DVT PPX Heparin The patient will need overnight hospital stay to continue treatment for CHF exacerbation pending weaning off oxygen and safe discharge plan. Time Spent With Patient Time: Total time managing care of this patient today ____ minutes. Quality Stroke Does the patient have a stroke diagnosis?: No VTE Prior VTE?: No VTE Risk Level:: Medical - moderate - high VTE Device Contraindication: N/A - Device Ordered VTE Drug Contraindication: N/A - Med Ordered
[2022-10-10] MEDS: Atorvastatin Calcium 40 MG TABLET PO (19:32)
[2022-10-10] MEDS: Multivitamin TABLET 1 TAB PO (19:32)
[2022-10-10] MEDS: Cholecalciferol (Vitamin D3) 10 MCG TABLET PO (19:33)
[2022-10-11] VITALS (12 sets, daily range): BP systolic 101–133; BP diastolic 49–65; PULSE 68–113; RESP 12–24; TEMP 36.4–37.4; O2SAT 86–98; BMI 40.6
[2022-10-11] MEDS: Heparin Sodium,Porcine 5,000 UNIT/ML VIAL 5000 UNIT SUBCUT ×3 (00:58→15:58)
[2022-10-11] MEDS: Omeprazole 20 MG CAPSULE.DR PO (04:23)
[2022-10-11] MEDS: Albuterol/Iprat 2.5/0.5MG 3 ML AMPUL.NEB INHALE ×5 (04:31→20:58)
[2022-10-11 07:25] LABS: Anion Gap 14 (12-20); Blood Urea Nitrogen 53 mg/dL (9-16); Calcium 9.5 mg/dL (8.4-10.2); Carbon Dioxide 36 mmol/L (22-29); Chloride 93 mmol/L (96-108); Creatinine Clr Calc Pharmacy 56.4; Estimated Glomerular Filt Rate 53; Glucose Random 91 mg/dL (60-115); Potassium 3.3 mmol/L (3.3-5.1); Sodium 140 mmol/L (135-145)
[2022-10-11] MEDS: Fluticasone/Vilanterol 100/25 BLST.W.DEV 1 PUFF INHALE (08:11)
[2022-10-11 09:10] LABS: Alanine Aminotransferase 246 U/L (0-31); Albumin Level 3.5 g/dL (3.5-5.0); Alkaline Phosphatase 86 U/L (39-117); Aspartate Amino Transferase 72 U/L (5-31); Bilirubin Direct 0.3 mg/dL (0.0-0.5); Bilirubin Total 0.9 mg/dL (0.0-1.0); Total Protein 6.1 g/dL (6.5-8.0)
[2022-10-11] MEDS: Benzonatate 100 MG CAPSULE PO ×3 (09:20→20:26)
[2022-10-11] MEDS: Losartan Potassium 25 MG TABLET PO (09:20)
[2022-10-11] MEDS: Docusate Sodium 100 MG CAPSULE PO ×2 (09:20→20:26)
[2022-10-11] MEDS: Aspirin Enteric Coated 81 MG TABLET.DR PO (09:21)
[2022-10-11] MEDS: TiZANidine HCL 4 MG TABLET PO (09:21)
[2022-10-11] MEDS: guaiFENesin LA 600 MG TAB.ER.12H PO ×2 (09:22→20:26)
[2022-10-11] MEDS: Metoprolol Tartrate 12.5 MG HALFTAB PO ×2 (09:22→20:26)
[2022-10-11] MEDS: Torsemide 20 MG TABLET 40 MG PO (09:22)
--- NOTE | 2022-10-11 11:54 | P.PNCA_ITS ---
Subjective Subjective Date of Service: 10/11/22 <CHUCK Zaman - Last Filed: 10/11/22 15:48> 10/11/22 <Cory Mckeon MD - Last Filed: 10/11/22 17:30> Principal diagnosis: CHF, hypoxic resp failure <CHUCK Zaman - Last Filed: 10/11/22 15:48> Interval history: Seen at 1015. Today she is seen while sitting up in recliner. Reports feeling better each day. Breathing improving but not at baseline yet. Still wearing O2 2 liters with nasal cannula. Does not wear O2 at home. No chest pains, palpitations, dizziness. Tele shows SR with PACs, rate 80-90s <CHUCK Zaman - Last Filed: 10/11/22 15:48> Review of Systems Review of Systems as above <CHUCK Zaman - Last Filed: 10/11/22 15:48> Yes all other systems are reviewed and are negative <CHUCK Zaman - Last Filed: 10/11/22 15:48> Physical Exam Vital Signs: Last Vital Signs Temp 97.6 F 10/11/22 11:00 Pulse 70 10/11/22 11:00 Resp 12 10/11/22 11:00 BP 101/49 L 10/11/22 11:00 Pulse Ox 94 10/11/22 11:00 O2 Del Method 10/11/22 11:00 O2 Flow Rate 2 10/11/22 11:00 FiO2 50 10/09/22 23:53 Oxygen Flow Rate 6 10/05/22 03:30 BMI result Body Mass Index 40.6 <CHUCK Zaman - Last Filed: 10/11/22 15:48> Const Other: morbidly obese <CHUCK Zaman - Last Filed: 10/11/22 15:48> General: cooperative, comfortable and no acute distress <CHUCK Zaman - Last Filed: 10/11/22 15:48> Orientation/consciousness: patient oriented x3 <CHUCK Zaman - Last Filed: 10/11/22 15:48> Neck Neck: Yes normal visual inspection and Yes no JVD <Rosemary Kaye NPC - Last Filed: 10/11/22 15:48> Resp Effort & Inspection: normal respiratory effort <Rosemary Kaye NP - Last Filed: 10/11/22 15:48> Auscultation: rales (in each lower lobe), no rhonchi and no wheezes <Rosemary Kaye NP-C - Last Filed: 10/11/22 15:48> Cardio Jugular venous distension: no JVD <Rosemary Kaye NP - Last Filed: 10/11/22 15:48> Rate: regular rate <Rosemary Kaye [facility] - Last Filed: 10/11/22 15:48> Rhythm: regular rhythm <Rosemary Kaye NP - Last Filed: 10/11/22 15:48> Heart sounds: S1 normal heart sound present, S2 normal heart sound present, no gallops, no murmurs and no rubs <Rosemary Kaye [employer]- - Last Filed: 10/11/22 15:48> GI Inspection: Yes normal to inspection <Rosemary Kaye NP - Last Filed: 10/11/22 15:48> Neuro General: patient oriented x3 <Rosemary Kaye NP - Last Filed: 10/11/22 15:48> Extrem General: Yes normal to inspection <Rosemary Kaye NP - Last Filed: 10/11/22 15:48> Psych Appearance: grossly normal <Rosemary Kaye NP - Last Filed: 10/11/22 15:48> Mental Status: mental status grossly normal <Rosemary Kaye [facility] - Last Filed: 10/11/22 15:48> Speech and movement: Normal speech and movement present <[facility]e [facility] - Last Filed: 10/11/22 15:48> Objective Labs and Meds Result diagrams: : 10/10/22 06:41 10/11/22 06:13 <Rosemary Kaye NP-C - Last Filed: 10/11/22 15:48> Lab results: Laboratory Results - last 24 hr 10/11/22 06:13 Sodium 140 Potassium 3.3 Chloride 93 L Carbon Dioxide 36 H Anion Gap 14 BUN 53 H Creatinine 1.01 Estim Creat Clear Calc 56.4 Estimated GFR 53 Random Glucose 91 Calcium 9.5 Total Bilirubin 0.9 Direct Bilirubin 0.3 AST 72 H ALT 246 H Alkaline Phosphatase 86 Total Protein 6.1 L Albumin 3.5 <CHUCK Zaman - Last Filed: 10/11/22 15:48> Progress Note: A&P Assessment and plan (1) Acute on chronic diastolic (congestive) heart failure: Status: Acute <CHUCK Zaman - Last Filed: 10/11/22 15:48> Assessment and Plan: Treated for acute on chronic diastolic heart failure this mission. Initially requiring ICU care. Now on IMC for last several days. Echocardiogram showed normal EF, wall motion difficult to assess. Breathing still not at baseline. Wearing oxygen supplement, 2 L. lungs with some rales in bases which could be atelectasis. Does not appear fluid overloaded otherwise. Diuresed 3 L. BNP initially 1252 then came down to 155 on 10/09. She was then changed from IV diuretics to p.o. torsemide 40 mg daily. Her home torsemide was 20 mg daily. Continue p.o. torsemide. Increase activity as tolerated. Use of incentive spirometer recommended. O2 supplement as needed for sat greater than 90. If unable to wean off then recommend eval for home O2. <CHUCK Zaman - Last Filed: 10/11/22 15:48> Treated for acute on chronic diastolic heart failure this mission. Initially requiring ICU care. Now on IMC for last several days. Echocardiogram showed normal EF, wall motion difficult to assess. Breathing still not at baseline. Wearing oxygen supplement, 2 L. lungs with some rales in bases which could be atelectasis. Does not appear fluid overloaded otherwise. Diuresed 3 L. BNP initially 1252 then came down to 155 on 10/09. She was then changed from IV diuretics to p.o. torsemide 40 mg daily. Her home torsemide was 20 mg daily. Continue p.o. torsemide. Increase activity as tolerated. Use of incentive spirometer recommended. O2 supplement as needed for sat greater than 90. If unable to wean off then recommend eval for home O2. Patient seen and examined. Case discussed with Rosemary. Patient says she feels better. Wants to go home. Has diuresed well and BNP is down trended. Can switch to p.o. torsemide. CHF education to be provided. Bilateral crackles appear to be due to chronic lung disease and/or atelectasis. Do not appear to be related to heart failure. Continue oxygen therapy and participate in oxygen desaturation study. She may require oxygen at home. Continue management of her lung condition as before. <Cory Mckeon MD - Last Filed: 10/11/22 17:30> (2) NSTEMI (non-ST elevated myocardial infarction): Status: Acute <CHUCK Zaman - Last Filed: 10/11/22 15:48> Assessment and Plan: NSTEMI this admission in the setting of Congestive heart failure, hypoxic respiratory failure and hypotension. Troponin elevated as high as 3012 on 10/04. EKG without ischemia. Echo with normal EF, unable to assess for wall motion abnormality. Was on heparin for 48 hours. She had no reports of chest discomfort. Most likely had secondary NSTEMI. Will plan for ischemic eval as outpatient. She has been started on her daily aspirin. Atorvastatin remains on hold as she had elevated LFTs this admission. Low-dose beta-anamaria was added. We will sign off and arrange for outpatient follow-up <CHUCK Zaman - Last Filed: 10/11/22 15:48> NSTEMI this admission in the setting of Congestive heart failure, hypoxic respiratory failure and hypotension. Troponin elevated as high as 3012 on 10/04. EKG without ischemia. Echo with normal EF, unable to assess for wall motion abnormality. Was on heparin for 48 hours. She had no reports of chest discomfort. Most likely had secondary NSTEMI. Will plan for ischemic eval as outpatient. She has been started on her daily aspirin. Atorvastatin remains on hold as she had elevated LFTs this admission. Low-dose beta-anamaria was added. We will sign off and arrange for outpatient follow-up Elevated troponins. Treated for it. Will require stress testing as outpatient. Will set up for outpatient follow-up. Will sign of the case. <Cory Mckeon MD - Last Filed: 10/11/22 17:30> Time Spent With Patient Time: Total time managing care of this patient today _20___ minutes. <CHUCK Zaman - Last Filed: 10/11/22 15:48> Progress Note: Quality Stroke Does the patient have a stroke diagnosis?: No <CHUCK Zaman - Last Filed: 10/11/22 15:48> Procedures Date of Service Date of Service: 10/11/22 <CHUCK Zaman - Last Filed: 10/11/22 15:48>
--- NOTE | 2022-10-11 14:27 | P.PNIM_ITS ---
Subjective Subjective Date of Service: 10/11/22 Interval History: ?follow up for hypoxic type respiratory failure. Patient still feels short of breath somewhat which seems improving from y ester. Review of Systems Blood pressure still of softer side Denies any chest pain or abdominal pain or nausea vomiting Physical Exam Vital Signs: Vital Signs: Last Vital Signs Temp 97.6 F 10/11/22 11:00 Pulse 70 10/11/22 11:58 Resp 12 10/11/22 11:58 BP 101/49 L 10/11/22 11:00 Pulse Ox 94 10/11/22 11:00 O2 Del Method 10/11/22 11:00 O2 Flow Rate 2 10/11/22 11:00 FiO2 50 10/09/22 23:53 Oxygen Flow Rate 6 10/05/22 03:30 BMI result Body Mass Index 40.6 Constitutional : Awake, interactive, not in distress Neck : Normal inspection, Supple Cardiovascular : RRR,? mildly elevated JVP, trace bilateral lower extremity edema Respiratory : good bilateral air entry,? basal fine? crackles, on oxygen supplement Gastrointestinal:? soft, lax, Normal bowel sounds, Non tender Skin : Warm, Dry Neurological : Alert & oriented x3, No focal deficit Objective Data Active Medications Acetaminophen (Acetaminophen 325 Mg Tablet) 650 mg PO Q6H PRN PRN Reason: Headache Last Admin: 10/09/22 20:08 Dose: 650 mg Documented By: AMILCAR Albuterol Sulfate (Albuterol Sulfate (0.083%) 2.5 Mg/3 Ml Vial.Neb) 2.5 mg INHALE Q4H PRN PRN Reason: Shortness Of Breath Albuterol Sulfate (Albuterol Sulfate 90 Mcg 8 Gm Inhaler) 2 puff INHALE QID PRN PRN Reason: Shortness Of Breath Albuterol/Ipratropium (Albuterol/Iprat 2.5/0.5mg 3 Ml Ampul.Neb) 3 ml INHALE RQ4H [facility] Last Admin: 10/11/22 11:56 Dose: 3 ml Documented By: PASQUALE Amlodipine Besylate (Amlodipine Besylate 5 Mg Tablet) 5 mg PO DAILY [facility]; Protocol Last Admin: 10/09/22 09:44 Dose: 5 mg Documented By: ANNEL Aspirin (Aspirin Enteric Coated 81 Mg Tablet.) 81 mg PO DAILY [facility] Last Admin: 10/11/22 09:21 Dose: 81 mg Documented By: ANA Atorvastatin Calcium (Atorvastatin Calcium 40 Mg Tablet) 40 mg PO BEDTIME [facility] Last Admin: 10/10/22 19:32 Dose: 40 mg Documented By: TYLER Benzonatate (Benzonatate 100 Mg Capsule) 100 mg PO TID [facility] Last Admin: 10/11/22 09:20 Dose: 100 mg Documented By: ANA Buspirone HCl (Buspirone Hcl 10 Mg Tablet) 10 mg PO BID PRN PRN Reason: Anxiety Calcium Carbonate (Calcium Carbonate 750 Mg Tab.Chew) 750 mg PO Q4H PRN PRN Reason: Heartburn Docusate Sodium (Docusate Sodium 100 Mg Capsule) 100 mg PO BID [facility] Last Admin: 10/11/22 09:20 Dose: 100 mg Documented By: ANA Fluticasone/Vilanterol (Fluticasone/Vilanterol 100/25 Blst.W.Dev) 1 puff INHALE RDAILY [facility] Last Admin: 10/11/22 08:11 Dose: 1 puff Documented By: PASQUALE Guaifenesin (Guaifenesin La 600 Mg Tab.Er.12h) 600 mg PO BID [facility] Last Admin: 10/11/22 09:22 Dose: 600 mg Documented By: ANA Guaifenesin (Guaifenesin 100 Mg/5 Ml Liquid) 10 ml PO Q4H PRN PRN Reason: Cough Last Admin: 10/10/22 19:32 Dose: 10 ml Documented By: TYLER Heparin Sodium (Porcine) (Heparin Sodium,Porcine 5,000 Unit/Ml Vial) 5,000 unit SUBCUT Q8H [facility] Last Admin: 10/11/22 09:20 Dose: 5,000 unit Documented By: ANA Losartan Potassium (Losartan Potassium 25 Mg Tablet) 25 mg PO DAILY [facility]; Protocol Last Admin: 10/11/22 09:20 Dose: 25 mg Documented By: ANA Metoprolol Tartrate (Metoprolol Tartrate 12.5 Mg Halftab) 12.5 mg PO BID [facility]; Protocol Last Admin: 10/11/22 09:22 Dose: 12.5 mg Documented By: ANA Multivitamins/Vitamin C (Multivitamin Tablet) 1 tab PO BEDTIME [facility] Last Admin: 10/10/22 19:32 Dose: 1 tab Documented By: TYLER Omeprazole (Omeprazole 20 Mg Capsule.Dr) 20 mg PO DAILY@0630 [facility] Last Admin: 10/11/22 04:23 Dose: 20 mg Documented By: TYLER Pharmacy Consult (Consult Rx Perform Med Rec) 1 each MISCELLANE ONCE PRN PRN Reason: Consult order Tizanidine HCl (Tizanidine Hcl 4 Mg Tablet) 4 mg PO DAILY [facility] Last Admin: 10/11/22 09:21 Dose: 4 mg Documented By: ANA Torsemide (Torsemide 20 Mg Tablet) 40 mg PO DAILY [facility]; Protocol Last Admin: 10/11/22 09:22 Dose: 40 mg Documented By: ANA Tramadol HCl (Tramadol Hcl 50 Mg Tablet) 50 mg PO BID PRN PRN Reason: Pain, Severe (Pain Scale 7-10) Last Admin: 10/08/22 15:40 Dose: 50 mg Documented By: DANA Vitamin D (Cholecalciferol (Vitamin D3) 10 Mcg Tablet) 10 mcg PO BEDTIME [facility] Last Admin: 10/10/22 19:33 Dose: 10 mcg Documented By: TYLER Labs CBC & Chem 7: 10/10/22 06:41 10/11/22 06:13 Labs: Laboratory Results - last 24 hr 10/11/22 06:13 Anion Gap 14 Estim Creat Clear Calc 56.4 Estimated GFR 53 Random Glucose 91 Calcium 9.5 Total Bilirubin 0.9 Direct Bilirubin 0.3 AST 72 H ALT 246 H Alkaline Phosphatase 86 Total Protein 6.1 L Albumin 3.5 Microbiology Microbiology Results: Microbiology 10/09/22 19:55 Urine Culture - Final Urine Catheterized - Javed Catheter 10/09/22 19:58 Blood Culture - Preliminary Blood - Venous No growth after 24 hours. 10/09/22 01:00 Blood Culture - Preliminary Blood - Venous No growth after 24 hours. Assessment and Plan (1) NSTEMI (non-ST elevated myocardial infarction): Status: Acute (2) Acute on chronic diastolic (congestive) heart failure: Status: Acute (3) YUDELKA (acute kidney injury): Status: Acute Plan 77-year-old lady with underlying history of COPD,? chronic D CHF, WOJCIECH, obesity admitted on 10/04/2022 with dyspnea and hypoxia. found to have acute kidney injury, and hypotension required ICU admission for vasopressor support. improved well with diuresis. Acute on chronic hypoxic respiratory failure secondary to diastolic CHF exacerbation Responding well to active diuresis increase torsemide to 40mg Cardiology input appreciated Monitor intake and output Wean oxygen down as tolerated incentive spirometry will likely need home oxygen , to do a home O2 eval upon discharge overnight oximetry study done for evaluation of BiPAP need at home NSTEMI Finished 48 hours of heparin drip Continue aspirin and statin Cardiology input appreciated, not a good candidate at present due to breathing issues so ischemic workup will be done as outpatient hypotension Secondary to blood pressure meds not due to sepsis Recovered with holding BP meds and IV fluids Continue to monitor Acute on chronic kidney injury Secondary to CHF Improving Monitor BMP and urine output Hypernatremia resolved Monitor after changing diuretics Transaminitis Secondary to congestion from CHF Improving with diuresis DVT PPX Heparin ongoing hospital stay :continue treatment for CHF exacerbation pending weaning off oxygen and safe discharge plan. Time Spent With Patient Time: Total time managing care of this patient today ____ minutes. Quality Stroke Does the patient have a stroke diagnosis?: No VTE Prior VTE?: No VTE Risk Level:: Medical - moderate - high VTE Device Contraindication: N/A - Device Ordered VTE Drug Contraindication: N/A - Med Ordered
[2022-10-11] MEDS: Cholecalciferol (Vitamin D3) 10 MCG TABLET PO (20:26)
[2022-10-11] MEDS: Atorvastatin Calcium 40 MG TABLET PO (20:26)
[2022-10-11] MEDS: Multivitamin TABLET 1 TAB PO (20:26)
[2022-10-11] MEDS: traMADoL HCL 50 MG TABLET PO (20:32)
[2022-10-11] MEDS: guaiFENesin 100 MG/5 ML LIQUID 10 ML PO (20:41)
[2022-10-12] VITALS (12 sets, daily range): BP systolic 77–151; BP diastolic 40–67; PULSE 68–107; RESP 12–20; TEMP 36.5–37.2; O2SAT 81–97; BMI 40.1
[2022-10-12] MEDS: Albuterol/Iprat 2.5/0.5MG 3 ML AMPUL.NEB INHALE (00:32)
[2022-10-12] MEDS: Heparin Sodium,Porcine 5,000 UNIT/ML VIAL 5000 UNIT SUBCUT ×3 (01:45→15:45)
[2022-10-12] MEDS: Omeprazole 20 MG CAPSULE.DR PO (05:09)
[2022-10-12] MEDS: Albuterol Sulfate (0.083%) 2.5 MG/3 ML VIAL.NEB INHALE (07:51)
[2022-10-12] MEDS: Fluticasone/Vilanterol 100/25 BLST.W.DEV 1 PUFF INHALE (07:51)
[2022-10-12] MEDS: Benzonatate 100 MG CAPSULE PO ×3 (08:04→20:50)
[2022-10-12] MEDS: guaiFENesin LA 600 MG TAB.ER.12H PO ×2 (08:04→20:50)
[2022-10-12] MEDS: Aspirin Enteric Coated 81 MG TABLET.DR PO (08:04)
[2022-10-12] MEDS: Torsemide 20 MG TABLET 40 MG PO (08:04)
[2022-10-12] MEDS: Metoprolol Tartrate 12.5 MG HALFTAB PO (08:04)
[2022-10-12] MEDS: TiZANidine HCL 4 MG TABLET PO (08:04)
[2022-10-12] MEDS: Losartan Potassium 25 MG TABLET PO (08:05)
[2022-10-12] MEDS: Docusate Sodium 100 MG CAPSULE PO ×2 (08:05→20:50)
--- NOTE | 2022-10-12 13:34 | P.DS_ITS ---
DS: Providers Provider Date of Service: 10/13/22 Date of admission: 10/04/22 21:47 Primary care physician: Clint Tong MD Consults: 10/05/22 19:30 Consult to Cardiology Routine Consulting Provider: Alfonso Abel Reason for consultation: NSTEMI Has provider been notified: Yes DS: Diagnosis Discharge Diagnosis (1) Acute on chronic diastolic (congestive) heart failure: Status: Acute (2) NSTEMI (non-ST elevated myocardial infarction): Status: Acute (3) Ischemia reperfusion injury of liver: Status: Acute (4) YUDELKA (acute kidney injury): Status: Acute (5) Hypotension: Status: Acute (6) Leukocytosis: Status: Acute (7) COPD (chronic obstructive pulmonary disease): Status: Acute (8) Hypoxemic respiratory failure, chronic: Status: Acute DS: Summary Hospital Course Hospital Course: date of service and discharge :10/13/22 77-year-old female, recent 60+ pack-year smoker, quit August of 2020 with a PMH of Acute and chronic respiratory failure with hypercapnia, Supplemental oxygen dependent, WOJCIECH (obstructive sleep apnea), Cholecystitis, gallstones,Pancreatitis, COPD, Emphysema, Cor pulmonale, chronic, Diastolic CHF with preserved left ventricular function, Hyperkalemia and Leukocytosis.? She was hospitalized here at [facility] in December of this year for gallstone pancreatitis/cholecystitis. She was treated conservatively with IV fluids, pain management and a clear liquid diet. ? The? general surgeon? had suggested an MRCP to assess for choledocholithiasis,? however due to her fear of intubation she refused to move forward with cholecystectomy.? Additionally, she was deemed high risk for surgery? by pulmonology though? her respiratory status was not an absolute contraindication at that time. Tonight, she was BIBA to the emergency room complaining of shortness of breath for couple of days.? She had been using her albuterol at home without any relief.? When EMS arrived to the patient's residence, her oxygen saturation was 80% on room air.? They gave her a DuoNeb. On arrival, her oxygen saturation dropped to 79% during transfer to the [facility].?She was started on BiPAP, was given azithromycin and ceftriaxone empirically for possible COPD exacerbation and her breathing became more comfortable.? Labs signigicant for WBC 14.5, potassium 5.3, BUN/creat 37/2.7 (baseline 22-23/0.6-0.7), BNP 1252.? Lactic acid 3.0, repeat lactic 2.0, AST >4202, ALT 2325, Alk phos 166, Trop 3012, VBG 7.28/44/121/21,? COVID-19 and influenza tested negative.? Chest x-ray showed Cardiomegaly with mild CHF and suspected underlying mild interstitial changes. Dr. Abel was consulted? by the ED physician regarding the EKG and labs; does not seem to be cardiac etiology, however, there is clearly some major underlying issue. Though there is new onset CHF, renal failure and hepatic failure, the etiology remains unclear. After a few hours of being on the BiPap, her blood pressure started dropping to the low 70?s. She denied chest pain. She was started on Levophed and a Heparin drip and admitted to the ICU. hospital course: 77-year-old lady with underlying history of COPD,? chronic? D CHF, WOJCIECH, obesity admitted on 10/04/2022 with dyspnea and hypoxia. found to have acute kidney injury, and hypotension required ICU admission for vasopressor support.? patient was thought to be related to chf and nsetmi: Given iv heparin, aspirin and statin-seen by Cardiology also given IV diuretics for heart failure.Cardiology input appreciated, not a good candidate at present due to breathing issues so ischemic workup will be done as outpatient. chf education given. Transaminitis: Thought to be related to CHF, improved significantly with diuresis. Monitor LFTs outpatient. Initially had lower blood pressure which was thought to be related to blood pressure meds -which recovered with the holding amlodipine,can start losartan in 2-3 days if needed for blood pressure outpatiently. Acute kidney injury initially was thought to be related to CHF which is also seems to be improving. Hypernatremia probably related to diuresis which is improved also since patient is switched to p.o. diuretic treatment. Further management outpatient with PCP, monitor renal function and electrolytes outpatient with PCP. In addition underlying COPD(emphysema): Previously did not comply with BiPAP. Night pulse oximetry was done patient currently wants to try NIV-patient will need NIV ventilator to help with gas exchange, decreased readmissions and also help with improved quality of life. leucocytosis seems to be improving ,blood cultures neg,patient is asymptomatic ,intailly received empric antibiotics in ICU .no further antiobiotics currently. In addition home oxygen evaluation was also done patient will need 4 L oxygen continuously 08/05. Patient is to follow-up with Cardiology also for further management. Patient was offered rehab, which patient declined discussed with her in detail- she wants to go home with VNA and PT. Time Spent with Patient Time attestation: Total time managing care of this patient today ____ minutes. Discharge coordination time: Greater than 30 minutes Quality: Safe Use of Opioids Does Pt have an Active Cancer Diagnosis on the Problem List?: No Quality: Stroke Does the patient have a stroke diagnosis?: No Physical Exam Vital Signs: Vital Signs: Last Vital Signs Temp 97.7 F 10/12/22 11:23 Pulse 68 10/12/22 11:23 Resp 12 10/12/22 11:23 BP 96/54 L 10/12/22 11:23 Pulse Ox 93 10/12/22 12:20 O2 Del Method 10/12/22 11:23 O2 Flow Rate 4 10/12/22 11:23 FiO2 50 10/09/22 23:53 Oxygen Flow Rate 6 10/05/22 03:30 BMI result Body Mass Index 40.1 ?Constitutional : Awake, interactive, not in distress Neck : Normal inspection, Supple Cardiovascular : RRR,? [id number],no jvd. Respiratory : good bilateral air entry,? no rales, ?on oxygen supplement Gastrointestinal:? soft, lax, Normal bowel sounds, Non tender Skin : Warm, Dry,no edema. Neurological : Alert & oriented x3, No focal deficiet. DS: Data Data Completed and Pending Labs on day of discharge: Preliminary micro results at discharge 10/09/22 19:58 Blood Culture - Preliminary Blood - Venous No growth after 48 hours. 10/09/22 01:00 Blood Culture - Preliminary Blood - Venous No growth after 48 hours. Imaging Chest x-ray: Radiologist's impression: ITS Impressions Chest X-Ray 10/04/22 18:22 IMPRESSION: 1. Cardiomegaly with mild CHF. Suspect underlying mild interstitial changes. 2. Calcified right thyroid nodule, stable. Abdomen/Pelvis CT 10/05/22 00:40 IMPRESSION: 1. Suspected tree-in-bud type nodularity in the right upper and lower lobes, favoring an infectious/inflammatory bronchiolitis. 2. Cholelithiasis. 3. Cardiomegaly. 4. Enlarged, multinodular thyroid gland. 5. Additional chronic findings as noted above. Chest CT 10/05/22 00:40 IMPRESSION: 1. Suspected tree-in-bud type nodularity in the right upper and lower lobes, favoring an infectious/inflammatory bronchiolitis. 2. Cholelithiasis. 3. Cardiomegaly. 4. Enlarged, multinodular thyroid gland. 5. Additional chronic findings as noted above. Chest X-Ray 10/05/22 02:15 IMPRESSION: Right IJ central line tip in the region of the distal SVC. Redemonstrated streaky bibasilar opacities, similar to prior. Tree-in-bud type nodularity seen on CT is not well demonstrated radiographically. Chest X-Ray 10/08/22 14:25 IMPRESSION: Stable right internal jugular catheter its tip at the atriocaval junction. Increased bilateral interstitial markings especially in both lung bases, unchanged. Cardiomegaly. No change from 10/05/2022 Discharge Plan Discharge Anticipated Discharge Date/Time: 10/12/22 13:22 Patient Disposition: Home Health Service Discharge Diagnosis: Acute on chronic hypoxemic respiratory failure secondary to CHF exacerbation, NSTEMI, hypertension, YUDELKA, hyponatremia, transaminitis. Referrals: Maryann GARCIA [Outside] - 1 Week Clint Tong MD [Primary Care Provider] - 1 Week Discharge Medications: Continued fluticasone furoate-vilanterol [Breo Ellipta] 100-25 mcg/dose Blister With Device 1 puff inhalation RDAILY Qty: 1 0RF guaifenesin [Mucinex] 600 mg Tablet Extended Release 12hr 600 mg PO BID Qty: 20 0RF albuterol sulfate 2.5 mg /3 mL (0.083 %) solution for nebulization 1 vial inhalation Q4H PRN (Reason: Shortness Of Breath) docusate sodium 100 mg Capsule 100 mg PO BID albuterol sulfate 90 mcg/actuation Hfa Aerosol Inhaler 2 puff INHALATION QID PRN (Reason: Shortness Of Breath) metoprolol tartrate 25 mg tablet 0.5 tab PO BID buspirone 5 mg tablet 2 tab PO BID PRN (Reason: Anxiety) tizanidine 4 mg tablet 1 tab PO DAILY tramadol 50 mg tablet 1 tab PO BID PRN (Reason: Pain) aspirin 81 mg Tablet,Delayed Release (Dr/Ec) 81 mg PO MOWEFR@2100 cholecalciferol (vitamin D3) [Vitamin D3] 10 mcg (400 unit) Tablet 10 mcg PO BEDTIME B-complex with vitamin C Tablet 1 tab PO BEDTIME docosahexaenoic acid-epa Capsule 1 cap PO BEDTIME lutein 20 mg Capsule 20 mg PO BEDTIME Rx Instructions: give with meal/snack melatonin 5 mg Tablet 5 mg PO BEDTIME PRN (Reason: Insomnia) atorvastatin 20 mg tablet 20 mg PO BEDTIME omeprazole 20 mg capsule,delayed release(DR/EC) 20 mg PO DAILY@0630 Changed torsemide 20 mg tablet 40 mg PO DAILY Qty: 60 0RF Held losartan 25 mg tablet 1 tab PO DAILY Hold Instructions: Resume on 10/15/22. Discontinued amlodipine 5 mg tablet 1 tab PO DAILY doxycycline hyclate 100 mg capsule 1 cap PO BID Rx Instructions: 10/04/22 - start of 8 day Tx Discharge Orders: Discharge Order (Routine); Ordered 10/13/22 Ordered By: Tim Marcano Diet: Advance to usual diet Activity on Discharge: As tolerated Stand Alone Forms: Patient Portal Discharge page Other Ambulatory Orders: Basic Metabolic Panel Fasting (Routine) Timeframe: 1 Week Facility: [facility] - Location: Laboratory Ordered By: Tim Marcano Complete Blood Count no Diff (Routine) Timeframe: 1 Week Facility: [facility] - Location: Laboratory Ordered By: Tim Marcano Liver Panel (Routine) Timeframe: 1 Week Facility: [facility] - Location: Laboratory Ordered By: Tim Marcano Care Plan Goals: Patient was admitted because of shortness of breath which was thought to be related to heart failure, also treated for mild heart attack: Given blood thinner, aspirin and statin-seen by Cardiology also given IV diuretics for heart failure.Cardiology input appreciated, not a good candidate at present due to breathing issues so ischemic workup will be done as outpatient. Initially had lower blood pressure which was thought to be related to blood pressure meds -which recovered with the holding BP medications as well as given hydration. Acute kidney injury initially was thought to be related to CHF which is also seems to be improving. Transaminitis possible Secondary to congestion from CHF,Improving with diuresis,moniter lft's outpatient. Hypernatremia probably related to diuresis which is improved also since patient is switched to p.o. diuretic treatment. Further management outpatient with PCP, monitor renal function and electrolytes outpatient with PCP. In addition underlying COPD(emphysema): Previously did not comply with BiPAP. Night pulse oximetry was done patient currently wants to try NIV-patient will need NIV ventilator to help with gas exchange, decreased readmissions and also help with improved quality of life. In addition home oxygen evaluation was also done patient will need 4 L oxygen continuously 08/05. Patient is to follow-up with Cardiology also for further management. Patient was offered rehab, which patient declined discussed with her in detail- she wants to go home with VNA and PT. moniter cbc,bmp and lft's outpatient considering above mentioned issues. Health Concerns: As above. Plan of Treatment: As above. Assessment: As above. Patient Instructions: Heart Attack (DC), Heart Failure (DC)
--- NOTE | 2022-10-12 13:41 | HO.PM.IMPN ---
Subjective Subjective Date of Service: 10/12/22 Interval History: follow up for hypoxic type respiratory failure. Patient short of breath seems improved. Review of Systems Denies any chest pain or abdominal pain or nausea vomiting Physical Exam Vital Signs: Vital Signs: Last Vital Signs Temp 97.7 F 10/12/22 11:23 Pulse 68 10/12/22 11:23 Resp 12 10/12/22 11:23 BP 96/54 L 10/12/22 11:23 Pulse Ox 93 10/12/22 12:20 O2 Del Method 10/12/22 11:23 O2 Flow Rate 4 10/12/22 11:23 FiO2 50 10/09/22 23:53 Oxygen Flow Rate 6 10/05/22 03:30 BMI result Body Mass Index 40.1 Constitutional : Awake, interactive, not in distress Neck : Normal inspection, Supple Cardiovascular : RRR,? mildly elevated JVP, trace bilateral lower extremity edema Respiratory : good bilateral air entry,? no rales, on oxygen supplement Gastrointestinal:? soft, lax, Normal bowel sounds, Non tender Skin : Warm, Dry Neurological : Alert & oriented x3, No focal deficit Objective Data Active Medications Acetaminophen (Acetaminophen 325 Mg Tablet) 650 mg PO Q6H PRN PRN Reason: Headache Last Admin: 10/09/22 20:08 Dose: 650 mg Documented By: AMILCAR Albuterol Sulfate (Albuterol Sulfate (0.083%) 2.5 Mg/3 Ml Vial.Neb) 2.5 mg INHALE Q4H PRN PRN Reason: Shortness Of Breath Last Admin: 10/12/22 07:51 Dose: 2.5 mg Documented By: SARAVANAN Albuterol Sulfate (Albuterol Sulfate 90 Mcg 8 Gm Inhaler) 2 puff INHALE QID PRN PRN Reason: Shortness Of Breath Amlodipine Besylate (Amlodipine Besylate 5 Mg Tablet) 5 mg PO DAILY [facility]; Protocol Last Admin: 10/09/22 09:44 Dose: 5 mg Documented By: ANNEL Aspirin (Aspirin Enteric Coated 81 Mg Tablet.) 81 mg PO DAILY [facility] Last Admin: 10/12/22 08:04 Dose: 81 mg Documented By: APOLINAR Atorvastatin Calcium (Atorvastatin Calcium 40 Mg Tablet) 40 mg PO BEDTIME [facility] Last Admin: 10/11/22 20:26 Dose: 40 mg Documented By: JAYLON Benzonatate (Benzonatate 100 Mg Capsule) 100 mg PO TID [facility] Last Admin: 10/12/22 08:04 Dose: 100 mg Documented By: APOLINAR Buspirone HCl (Buspirone Hcl 10 Mg Tablet) 10 mg PO BID PRN PRN Reason: Anxiety Calcium Carbonate (Calcium Carbonate 750 Mg Tab.Chew) 750 mg PO Q4H PRN PRN Reason: Heartburn Docusate Sodium (Docusate Sodium 100 Mg Capsule) 100 mg PO BID [facility] Last Admin: 10/12/22 08:05 Dose: 100 mg Documented By: APOLINAR Fluticasone/Vilanterol (Fluticasone/Vilanterol 100/25 Blst.W.Dev) 1 puff INHALE RDAILY [facility] Last Admin: 10/12/22 07:51 Dose: 1 puff Documented By: SARAVANAN Guaifenesin (Guaifenesin La 600 Mg Tab.Er.12h) 600 mg PO BID [facility] Last Admin: 10/12/22 08:04 Dose: 600 mg Documented By: APOLINAR Guaifenesin (Guaifenesin 100 Mg/5 Ml Liquid) 10 ml PO Q4H PRN PRN Reason: Cough Last Admin: 10/11/22 20:41 Dose: 10 ml Documented By: JAYLON Heparin Sodium (Porcine) (Heparin Sodium,Porcine 5,000 Unit/Ml Vial) 5,000 unit SUBCUT Q8H [facility] Last Admin: 10/12/22 08:03 Dose: 5,000 unit Documented By: APOLINAR Losartan Potassium (Losartan Potassium 25 Mg Tablet) 25 mg PO DAILY [facility]; Protocol Last Admin: 10/12/22 08:05 Dose: 25 mg Documented By: APOLINAR Metoprolol Tartrate (Metoprolol Tartrate 12.5 Mg Halftab) 12.5 mg PO BID [facility]; Protocol Last Admin: 10/12/22 08:04 Dose: 12.5 mg Documented By: APOLINAR Multivitamins/Vitamin C (Multivitamin Tablet) 1 tab PO BEDTIME [facility] Last Admin: 10/11/22 20:26 Dose: 1 tab Documented By: JAYLON Omeprazole (Omeprazole 20 Mg Capsule.Dr) 20 mg PO DAILY@0630 [facility] Last Admin: 10/12/22 05:09 Dose: 20 mg Documented By: JAYLON Pharmacy Consult (Consult Rx Perform Med Rec) 1 each MISCELLANE ONCE PRN PRN Reason: Consult order Tizanidine HCl (Tizanidine Hcl 4 Mg Tablet) 4 mg PO DAILY [facility] Last Admin: 10/12/22 08:04 Dose: 4 mg Documented By: APOLINAR Torsemide (Torsemide 20 Mg Tablet) 40 mg PO DAILY [facility]; Protocol Last Admin: 10/12/22 08:04 Dose: 40 mg Documented By: APOLINAR Vitamin D (Cholecalciferol (Vitamin D3) 10 Mcg Tablet) 10 mcg PO BEDTIME [facility] Last Admin: 10/11/22 20:26 Dose: 10 mcg Documented By: JAYLON Labs CBC & Chem 7: 10/10/22 06:41 10/11/22 06:13 Microbiology Microbiology Results: Microbiology 10/09/22 19:58 Blood Culture - Preliminary Blood - Venous No growth after 48 hours. 10/09/22 01:00 Blood Culture - Preliminary Blood - Venous No growth after 48 hours. 10/09/22 19:55 Urine Culture - Final Urine Catheterized - Javed Catheter Assessment and Plan (1) NSTEMI (non-ST elevated myocardial infarction): Status: Acute (2) Acute on chronic diastolic (congestive) heart failure: Status: Acute (3) YUDELKA (acute kidney injury): Status: Acute Plan 77-year-old lady with underlying history of COPD,? chronic D CHF, WOJCIECH, obesity admitted on 10/04/2022 with dyspnea and hypoxia. found to have acute kidney injury, and hypotension required ICU admission for vasopressor support. improved well with diuresis. Acute on chronic hypoxic respiratory failure secondary to diastolic CHF exacerbation Responding well to active diuresis switched to po torsemide to 40mg Cardiology input appreciated Monitor intake and output Wean oxygen down as tolerated incentive spirometry will likely need home oxygen , to do a home O2 eval upon discharge overnight oximetry study done for evaluation of BiPAP need at home NSTEMI Finished 48 hours of heparin drip Continue aspirin and statin Cardiology input appreciated, not a good candidate at present due to breathing issues so ischemic workup will be done as outpatient hypotension Secondary to blood pressure meds not due to sepsis Recovered with holding BP meds and IV fluids Continue to monitor hold losartan and amlodipine due to boderline bp. Acute on chronic kidney injury Secondary to CHF Improving Monitor BMP and urine output Hypernatremia resolved Monitor after changing diuretics Transaminitis Secondary to congestion from CHF Improving with diuresis DVT PPX Heparin ongoing hospital stay :awaitin home oxygen placement Time Spent With Patient Time: Total time managing care of this patient today ____ minutes. Quality Stroke Does the patient have a stroke diagnosis?: No VTE Prior VTE?: No VTE Risk Level:: Medical - moderate - high VTE Device Contraindication: N/A - Device Ordered VTE Drug Contraindication: N/A - Med Ordered
--- NOTE | 2022-10-12 13:45 | MHC.CM.PN ---
KONSTANTIN received a call from Daughter/Bethany who was informed by Patient's new O2 Company/[employer], that Patient will be returning home today. Bethany expressed concern because the O2 was set up to be delivered to the home tomorrow. KONSTANTIN spoke with MD, who stated Patient needs the O2 08/05 and would not be dc home until the day the O2 is delivered. KONSTANTIN addressed IMM over the phone with Bethany and the original will be mailed certified letter to her and a copy has been placed on the chart.
[2022-10-12] MEDS: guaiFENesin 100 MG/5 ML LIQUID 10 ML PO (19:50)
[2022-10-12] MEDS: Atorvastatin Calcium 40 MG TABLET PO (20:50)
[2022-10-12] MEDS: Cholecalciferol (Vitamin D3) 10 MCG TABLET PO (20:50)
[2022-10-12] MEDS: Multivitamin TABLET 1 TAB PO (20:50)
[2022-10-13] MEDS: Heparin Sodium,Porcine 5,000 UNIT/ML VIAL 5000 UNIT SUBCUT ×2 (01:19→08:52)
[2022-10-13 03:32] VITALS: BP 137/60; PULSE 78; RESP 18; TEMP 36.9; O2SAT 92
[2022-10-13] MEDS: Omeprazole 20 MG CAPSULE.DR PO (05:42)
[2022-10-13 06:00] VITALS: BMI 40.1
[2022-10-13] MEDS: Fluticasone/Vilanterol 100/25 BLST.W.DEV 1 PUFF INHALE (07:54)
[2022-10-13 07:56] VITALS: PULSE 78; RESP 20; O2SAT 92
[2022-10-13 08:00] VITALS: BP 107/59; PULSE 116; RESP 20; TEMP 36.6; O2SAT 94
[2022-10-13] MEDS: Torsemide 20 MG TABLET 40 MG PO (08:52)
[2022-10-13] MEDS: Aspirin Enteric Coated 81 MG TABLET.DR PO (08:53)
[2022-10-13] MEDS: TiZANidine HCL 4 MG TABLET PO (08:53)
[2022-10-13] MEDS: guaiFENesin LA 600 MG TAB.ER.12H PO (08:53)
[2022-10-13] MEDS: Benzonatate 100 MG CAPSULE PO (08:53)
[2022-10-13] MEDS: Docusate Sodium 100 MG CAPSULE PO (08:53)
--- NOTE | 2022-10-13 10:23 | W.MHC.F2F ---
Service Date Service Date: 10/13/22 Encounter Date of encounter: 10/13/22 Encounter: chf,nstemi,yudelka,tramamnitis ,patient will be on NIv Reasons for Services Signs and symptoms assessed: Monitor for shortness of breath or chest pain Reason for assisted: CV/CP assess and/or care, medication management, medication treatment and teach disease management Reason for physical therapy: home safety and mobility, therapeutic exercises, restore joint function, gait/transfer training, assess need for DME, ADL training, energy conservation and other MD Overseeing Care: Clint Tong Homebound: Leaving the home is medically contraindicated at this time without the asist of a device and/or another person due th the listed conditions above and below. Reason homebound: immunosuppression / infection risk Homebound supporting statement: Patient is generalized weak post hospitalization stay-treated for multiple issues-CHF, NSTEMI, YUDELKA transaminitis-need help with appointments and blood draws. Certification: Based on the above findings, I certify that this patient is confined to the home and needs intermittent assisted care, physical therapy and/or speech therapy, or continues to need occupational therapy. The patient is under my care, and I have initiated the establishment of the plan of care. The patient will be followed by a physician who will periodically review the plan of care. Time Spent With Patient Time: Total time managing care of this patient today ____ minutes.
[2022-10-13 11:08] VITALS: BP 120/95; PULSE 86; RESP 20; TEMP 36.6; O2SAT 95
--- NOTE | 2022-10-13 12:38 | MHC.CM.PN ---
Per ROUNDS discussion, Patient will be medically cleared for dc to home today with services. A referral was made to [facility], who was made aware of today's dc. CM was present when RT/Hardeep spoke with Daughter/Joselyn and addressed all questions regarding new home O2 which [facility] has already delivered to the home. Last IMM addressed with Daughter/HCP/Bethany yesterday.
== END 2022-10-13 14:26 | disposition home health service (06) | DRG 190 ==
LOC: HO.ED 22:47 → HO.ICU 22:56 → HO.IMC 10-07 04:27
PROVIDERS: Internal Medicine; Internal Medicine Pulmonary Disease; Nurse Practitioner Family; Student in an Organized Health Care Education/Training Program; Admitting Provider Registered Nurse Community Health; Emergency Provider Emergency Medicine; PCP Internal Medicine; Visit Provider Internal Medicine
DX: J43.9 Emphysema, unspecified (principal); I21.4 Non-ST elevation (NSTEMI) myocardial infarction; I50.33 Acute on chronic diastolic (congestive) heart failure; J96.21 Acute and chronic respiratory failure with hypoxia; N17.0 Acute kidney failure with tubular necrosis; K72.00 Acute and subacute hepatic failure without coma; Z68.41 Body mass index [BMI] 40.0-44.9, adult; E87.0 Hyperosmolality and hypernatremia; I51.7 Cardiomegaly; E66.9 Obesity, unspecified; G47.33 Obstructive sleep apnea (adult) (pediatric); Z20.822 Contact with and (suspected) exposure to COVID-19; Z87.891 Personal history of nicotine dependence; Z88.1 Allergy status to other antibiotic agents; Z79.51 Long term (current) use of inhaled steroids; Z79.82 Long term (current) use of aspirin; Z79.899 Other long term (current) drug therapy
CPT/HCPCS: 36415; 71045; 71250; 74176; 80048; 80053; 80076; 81001; 82040; 82803; 83605; 83735; 83880; 84100; 84484; 85025; 85027; 85610; 85730; 87040; 87070; 87086; 87205; 87502; 87635; 93005; 93306; 94640; 94660; 97116; 97162; 97530; 99285; C1758; J0456; J0692; J0696; J2020; J2543; J2930; J3475; P9047; Q9957

== ENCOUNTER 2022-10-20 11:43 | Outpatient (REF) | payer MEDICARE, MEDICAID, SELFPAY ==
[2022-10-20 11:54] LABS: Hematocrit 42.9 % (37.0-47.0); Hemoglobin 13.5 g/dl (12.0-16.0); Mean Corpuscular HGB Conc 31.5 g/dl (31.0-35.0); Mean Corpuscular Volume 95.3 fL (80.0-98.0); Mean Platelet Volume 12.3 fL (9.4-12.3); Platelet Count 230 X10*3/uL (160-400); Red Cell Distribution Width 15.9 % (11.0-16.0); White Blood Count 6.7 X10*3/uL (4.8-10.8)
[2022-10-20 12:31] LABS: Alanine Aminotransferase 49 U/L (0-31); Albumin Level 3.7 g/dL (3.5-5.0); Alkaline Phosphatase 80 U/L (39-117); Anion Gap 12 (12-20); Aspartate Amino Transferase 43 U/L (5-31); Bilirubin Direct 0.3 mg/dL (0.0-0.5); Bilirubin Total 0.8 mg/dL (0.0-1.0); Blood Urea Nitrogen 22 mg/dL (9-16); Calcium 9.4 mg/dL (8.4-10.2); Carbon Dioxide 39 mmol/L (22-29); Chloride 94 mmol/L (96-108); Estimated Glomerular Filt Rate 53; Glucose Random 161 mg/dL (60-115); Potassium 3.8 mmol/L (3.3-5.1); Sodium 141 mmol/L (135-145); Total Protein 6.6 g/dL (6.5-8.0)
== END 2022-10-20 11:44 | disposition home or self-care (01) ==
LOC: HO.HVNA 11:43
PROVIDERS: Visit Provider Internal Medicine
DX: I50.33 Acute on chronic diastolic (congestive) heart failure (principal)
CPT/HCPCS: 36415; 80048; 80076; 85027

== ENCOUNTER → 2022-11-10 10:00 | Outpatient (REF) | payer MEDICARE, MEDICAID, SELFPAY | LOC: HO.CARD 10:00 | PROVIDERS: PCP Internal Medicine; Visit Provider Nurse Practitioner Family | DX: Z13.89 Encounter for screening for other disorder (principal) ==

== ENCOUNTER 2023-03-07 11:08 | Emergency (ER) | payer MEDICARE, MEDICAID, SELFPAY ==
[2023-03-07 11:27] VITALS: BP 108/62; BP 132/84; PULSE 75; PULSE 88; RESP 22; TEMP 36.3; O2SAT 95; O2SAT 97; BMI 41.6
--- NOTE | 2023-03-07 11:35 | ED_ITS ---
HPI - Female Genitourinary General Chief complaint: Urogenital-Female Stated complaint: UTI Time Seen by Provider: 03/07/23 11:35 Source: patient, family (patient's daughter) and EMS Mode of arrival: EMS Limitations: no limitations History of Present Illness HPI Narrative: Patient is a 78 year old assigned female at with a history of COPD on oxygen presenting to the emergency department today with right ear pain and to have her urine evaluated. Patient states that her right ear has been bothering her some for the last few days and recently, her children told her that her urine was foul smelling. Patient denies any dizziness, lightheadedness, abdominal pain, nausea, vomiting, fever, chills, blurry vision, double vision, loss of vision, chest pain, difficulty breathing, shortness of breath, back pain, night sweats, pain with urination, increased urinary frequency, increased urinary urgency, blood in her urine or stool, syncope or a near syncopal episode, recent trauma or falls, bowel incontinence, bladder incontinence, bowel retention, bladder retention, or any other complaints at this time. Exacerbating factors: none Relieving factors: none Associated symptoms: denies other symptoms and chills Related Data Home Medications Medication Instructions Recorded Confirmed atorvastatin 20 mg tablet 20 mg PO BEDTIME 10/13/20 10/04/22 omeprazole 20 mg capsule,delayed 20 mg PO DAILY@0630 10/13/20 10/04/22 release albuterol sulfate 2.5 mg/3 mL 1 vial inhalation Q4H PRN 01/07/22 10/04/22 (0.083 %) solution for nebulization Shortness Of Breath albuterol sulfate 90 mcg/actuation 2 puff inhalation QID PRN 01/07/22 10/04/22 aerosol inhaler Shortness Of Breath docusate sodium 100 mg capsule 100 mg PO BID 01/07/22 10/04/22 metoprolol tartrate 25 mg tablet 0.5 tab PO BID 01/07/22 10/04/22 B-complex with vitamin C 1 tab PO BEDTIME 10/04/22 10/04/22 aspirin 81 mg tablet,delayed 81 mg PO MOWEFR@2100 10/04/22 10/04/22 release buspirone 5 mg tablet 2 tab PO BID PRN Anxiety 10/04/22 10/04/22 cholecalciferol (vitamin D3) 10 10 mcg PO BEDTIME 10/04/22 10/04/22 mcg (400 unit) tablet (Vitamin D3) docosahexaenoic acid (dha)-epa 1 cap PO BEDTIME 10/04/22 10/04/22 capsule losartan 25 mg tablet 1 tab PO DAILY 10/04/22 10/04/22 lutein 20 mg capsule 20 mg PO BEDTIME 10/04/22 10/04/22 melatonin 5 mg tablet 5 mg PO BEDTIME PRN Insomnia 10/04/22 10/04/22 tizanidine 4 mg tablet 1 tab PO DAILY 10/04/22 10/04/22 tramadol 50 mg tablet 1 tab PO BID PRN Pain 10/04/22 10/04/22 Previous Rx's Medication Instructions Recorded fluticasone furoate 100 1 puff inhalation RDAILY #1 ea 11/03/20 mcg-vilanterol 25 mcg/dose inhalation powder (Breo Ellipta) guaifenesin 600 mg tablet, 600 mg PO BID #20 tabs 11/03/20 extended release 12 hr (Mucinex) torsemide 20 mg tablet 40 mg PO DAILY #60 tabs 10/12/22 Allergies Allergy/AdvReac Type Severity Reaction Status Date / Time ceftriaxone [From Rocephin] Allergy Unknown Unknown Verified 10/05/22 01:45 vancomycin Allergy Unknown itch, Verified 10/05/22 01:45 rash, hives Review of Systems Constitutional: Constitutional: Reports no additional constitutional complaints, Denies chills, Denies fever(s) and Denies night sweats Eyes: Eyes: Reports no additional eye complaints, Denies blurry vision, Denies change in vision, Denies diplopia, Denies eye discharge, Denies loss of vision and Denies eye pain ENT: Denies dizziness Comments: right ear pain Cardiovascular: Cardiovascular: Reports no additional cardiovascular complaints, Denies chest pain, Denies lightheadedness, Denies Loss of Consciousness and Denies dyspnea Respiratory: Respiratory: Reports no additional respiratory complaints and Denies dyspnea Gastrointestinal: Gastrointestinal: Reports no additional gastrointestinal complaints, Denies abdominal pain, Denies melena, Denies hematochezia, Denies change in bowel habits and Denies change in stool character Genitourinary: Genitourinary: Denies hematuria, Denies urinary frequency, Denies dysuria, Denies urinary incontinence, Denies urinary hesitancy and Denies urinary urgency Musculoskeletal: Musculoskeletal: Reports no additional musculoskeletal complaints, Denies numbness and Denies tingling Neurologic: Denies dizziness, Denies loss of vision, Denies numbness and Denies tingling Psychiatric: Psychiatric: Reports no additional psychiatric complaints Endocrine: Endocrine: Reports no additional endocrine complaints Hematologic/Lymphatic: Hematologic/Lymphatic: Reports no additional hematologic/lymphatic complaints Allergic/Immunologic: Allergic/Immunologic: Reports no additional allergic/immunologic complaints PMFSH Past Medical History Attestation statement: The following information was validated with the patient. Source: old records reviewed, obtained from family (patient's daughter) and nursing notes reviewed Medical History Acute and chronic respiratory failure with hypercapnia Cholecystitis COPD (chronic obstructive pulmonary disease) Cor pulmonale, chronic Diastolic CHF with preserved left ventricular function, NYHA class 2 Dilated cbd, acquired Emphysema lung Gallstone Hyperkalemia Leukocytosis WOJCIECH (obstructive sleep apnea) Pancreatitis Supplemental oxygen dependent Social History Social History Household Members: Children Housing: House Do you presently have visiting nurse or other home services: No Unable to assess alcohol history related to: Unknown Alcohol intake: never Patient Tobacco Use Status: Former Tobacco user Tobacco use type: Cigarette Smoked in Last 30 Days: No Use of substances other than those prescribed or required for medical reasons: No Substance Use Type: Unknown Advance Directives: No Advance Directives Information Provided: Yes service: No Current occupational status: retired Physical Exam Vital Signs: Vital Signs: Last Vital Signs Temp 97.3 F 03/07/23 11:27 Pulse 88 03/07/23 11:27 Resp 22 H 03/07/23 11:27 BP 132/84 03/07/23 11:27 Pulse Ox 95 03/07/23 11:27 O2 Del Method Nasal Cannula 03/07/23 11:27 Oxygen Flow Rate 2 03/07/23 11:27 BMI result Body Mass Index 41.6 Const: General: cooperative, no acute distress, alert and awake Nutritional Appearance: well nourished Orientation/consciousness: patient oriented x3 Limitations: no limitations HEENT: Head: Yes normal to inspection and Yes atraumatic Ears: hearing grossly normal bilaterally and external ears normal General nose exam: Normal external nose present, no nasal discharge noted and no epistaxis Face and sinus: Yes normal facial exam, No abrasion and No laceration Mouth: Normal oral and palatal mucosa present, no drooling and no muffled voice Eyes: General: appearance normal, both eyes and all related structures Periorbital: periorbital findings normal Eyelids: Yes eyelids normal Conjunctivae: conjunctivae normal Pupils: Equal, round and reactive pupils present EOM: EOMs intact bilaterally Neck: Neck: Yes normal visual inspection, Yes full ROM and Yes no lymphadenopathy Chest: Chest palpation & inspection: normal inspection of the chest Resp: Other: on chronic oxygen via nasal cannula Effort & Inspection: normal respiratory effort and able to speak in complete sentences Auscultation: clear to auscultation bilaterally Cardio: Rate: regular rate Rhythm: regular rhythm GI: Inspection: Yes normal to inspection Neuro: General: patient oriented x3 and moves all extremities Cranial nerves: Yes Equal, round and reactive pupils present Cognition (Neuro): normal cognition Motor exam (neuro): 5/5 motor strength present throughout Sensory Exam: Normal double simultaneous stimulation for sensation Coordination: [id number] test normal Extrem: General: Yes normal to inspection, Yes full ROM and Yes capillary refill normal Psych: Appearance: grossly normal Mental Status: mental status grossly normal Affect: normal affect Attitude: cooperative Thought process: Normal thought process present Thought content: Normal thought content present Insight: Good insight present (Psych) Medical Decision Making Medical Decision Making MDM Narrative: Patient is an 78 year old assigned female at with a history of COPD requiring oxygen presenting to the emergency department today with right ear pain and urine evaluation. Patient's physical exam was unremarkable. Patient's urine showed no acute process. I explained my physical exam findings as well as all test results to the patient and the patient's daughter. I answered all questions asked by the patient and the patient's daughter. Patient's daughter was adamant that something had to be wrong with her mother and she needed to stay in the hospital. I assured her that the patient's physical examination was normal for the patient's baseline, including a normal neurological exam. I stressed the importance of the patient taking her medication as prescribed. I stressed the importance of the patient following up with her primary care provider. I stressed the importance of the patient returning to the emergency department immediately if her symptoms were to worsen or if she were to develop any dizziness, shortness of breath, difficulty breathing, chest pain, blurry vision, loss of vision, nausea, vomiting, abdominal pain, fever, chills, back pain, or any other complaints. Patient verbalized agreement and understanding with this treatment plan and discharge. Differential Diagnosis Differential Diagnoses: The differential diagnosis associated with the presentation includes right ear pain Lab Data MDM Lab Attestation statement: I reviewed the patient's lab results. Labs: Lab Results 03/07/23 Range/Units 12:08 Urine Color Yellow Urine Appearance Clear Urine pH 7.0 (5.0-9.0) Ur Specific [place] 1.010 (1.005-1.025) Urine Protein Negative (Neg-Trace) mg/dL Urine Glucose (UA) Negative (Negative) mg/dL Urine Ketones Negative (Negative) mg/dL Urine Blood Negative (Negative) Urine Nitrite Negative (Negative) Ur Leukocyte Esterase Negative (Negative) Discharge Plan Discharge Clinical Impression: Acute ear pain Patient Disposition: Home, Self-Care Instructions: Earache (ED) Additional Instructions: Your urine was normal. Your ear examination was also normal. Follow up with your primary care provider. Return to the emergency department immediately if your symptoms worsen or if you develop any dizziness, shortness of breath, difficulty breathing, chest pain, blurry vision, loss of vision, nausea, vomiting, abdominal pain, fever, chills, back pain, or any other complaints. Prescriptions: No Action fluticasone furoate-vilanterol [Breo Ellipta] 100-25 mcg/dose Blister With Device 1 puff inhalation RDAILY Qty: 1 0RF guaifenesin [Mucinex] 600 mg Tablet Extended Release 12hr 600 mg PO BID Qty: 20 0RF albuterol sulfate 2.5 mg /3 mL (0.083 %) solution for nebulization 1 vial inhalation Q4H PRN (Reason: Shortness Of Breath) docusate sodium 100 mg Capsule 100 mg PO BID albuterol sulfate 90 mcg/actuation Hfa Aerosol Inhaler 2 puff INHALATION QID PRN (Reason: Shortness Of Breath) metoprolol tartrate 25 mg tablet 0.5 tab PO BID buspirone 5 mg tablet 2 tab PO BID PRN (Reason: Anxiety) tizanidine 4 mg tablet 1 tab PO DAILY tramadol 50 mg tablet 1 tab PO BID PRN (Reason: Pain) losartan 25 mg tablet 1 tab PO DAILY Hold Instructions: Resume on 10/15/22. aspirin 81 mg Tablet,Delayed Release (Dr/Ec) 81 mg PO MOWEFR@2100 cholecalciferol (vitamin D3) [Vitamin D3] 10 mcg (400 unit) Tablet 10 mcg PO BEDTIME B-complex with vitamin C Tablet 1 tab PO BEDTIME docosahexaenoic acid-epa Capsule 1 cap PO BEDTIME lutein 20 mg Capsule 20 mg PO BEDTIME Rx Instructions: give with meal/snack melatonin 5 mg Tablet 5 mg PO BEDTIME PRN (Reason: Insomnia) torsemide 20 mg tablet 40 mg PO DAILY Qty: 60 0RF atorvastatin 20 mg tablet 20 mg PO BEDTIME omeprazole 20 mg capsule,delayed release(DR/EC) 20 mg PO DAILY@0630 Referrals: [facility] [place] [facility] [place] Group] (Call to establish and follow up with a primary care provider. If you already have a primary care provider, please follow up with them.) [facility] [place] [facility] [Provider Group] (Call to establish and follow up with a primary care provider. If you already have a primary care provider, please follow up with them.) [facility] [place] [facility] [Provider Group] (Call to establish and follow up with a primary care provider. If you already have a primary care provider, please follow up with them.) Interventions: ED Discharge Assessment Last Done: 03/07/23 13:40 Discharge Date/Time: 03/07/23 13:41 Print Language: Turkmen
[2023-03-07 12:21] LABS: Appearance Urine Clear; Color Urine Yellow; Glucose Urine UA Negative (Negative); Leukocyte Esterase Urine Negative (Negative); Nitrite Urine Negative (Negative); Urine Blood Negative (Negative); Urine Ketones Negative (Negative); Urine Protein Negative (Neg-Trace)
--- NOTE | 2023-03-07 13:33 | PC.NURSE ---
pt alert and oriented. pt daughter came in and was upset that there was no answer to why her mother will go off on different subjects when she talks. this rn had MADELIN Sánchez talk to pt and daughter and reassured that all tests necessary were performed and there was nothing wrong with pt. daughter was agitated but left to get home O2 tank for pt for ride home. pt discharged and in waiting room, awaiting daughter bulk picker. also awaiting word on orange jacket that was left in [facility].
== END 2023-03-07 13:41 | disposition home or self-care (01) ==
PROVIDERS: Emergency Provider Emergency Medicine Emergency Medical Services
DX: H92.01 Otalgia, right ear (principal); R39.198 Other difficulties with micturition; J44.9 Chronic obstructive pulmonary disease, unspecified; Z79.899 Other long term (current) drug therapy
CPT/HCPCS: 81003; 99283; 99284

== ENCOUNTER 2023-03-09 14:56 | Outpatient (REF) | payer MEDICARE, MEDICAID, SELFPAY ==
[2023-03-09 15:25] LABS: MANUAL DIFF FLAG NO
[2023-03-09 16:00] LABS: Basophils Percent Auto 0.4 % (0-2); Eosinophils Absolute Auto 0.1 X10*3/uL (0.0-0.4); Eosinophils Percent Auto 1.1 % (0-4); Hematocrit 37.3 % (37.0-47.0); Hemoglobin 11.9 g/dl (12.0-16.0); Imm Gran Abs Auto 0.03 X10*3/uL (0.00-0.03); Imm Gran Pct Auto 0.4 % (0.0-0.4); Lymphocytes Absolute Auto 1.6 X10*3/uL (1.2-4.9); Mean Corpuscular HGB Conc 31.9 g/dl (31.0-35.0); Mean Corpuscular Hemoglobin 32.3 pg (27.0-33.0); Mean Corpuscular Volume 101.4 fL (80.0-98.0); Mean Platelet Volume 11.4 fL (9.4-12.3); Monocytes Absolute Auto 0.7 X10*3/uL (0.1-1.2); Monocytes Percent Auto 8.1 % (2-11); Neutrophils Absolute Auto 5.7 x10*3/uL (2.0-8.3); Platelet Count 204 X10*3/uL (160-400); Red Blood Count 3.68 X10*6/uL (4.20-5.50); White Blood Count 8.1 X10*3/uL (4.8-10.8)
[2023-03-09 16:06] LABS: Estimated Average Glucose 111 mg/dL; Hemoglobin A1C 117.9493 umol/L; Hemoglobin A1c % 5.5 %
[2023-03-09 16:42] LABS: Alanine Aminotransferase 9 U/L (0-31); Albumin Level 3.6 g/dL (3.5-5.0); Alkaline Phosphatase 69 U/L (39-117); Anion Gap 15 (12-20); Aspartate Amino Transferase 19 U/L (5-31); Bilirubin Direct 0.1 mg/dL (0.0-0.5); Bilirubin Total 0.5 mg/dL (0.0-1.0); Blood Urea Nitrogen 26 mg/dL (9-16); Calcium 9.4 mg/dL (8.4-10.2); Carbon Dioxide 35 mmol/L (22-29); Chloride 97 mmol/L (96-108); Estimated Glomerular Filt Rate 53; Glucose Fasting 153 mg/dL (60-99); Glucose Random 152 mg/dL (60-115); Potassium 4.7 mmol/L (3.3-5.1); Sodium 142 mmol/L (135-145); Total Protein 6.5 g/dL (6.5-8.0)
[2023-03-09 16:57] LABS: Free T4 (Free Thyroxine) 1.08 ng/dL (0.71-1.85); Thyroid Stimulating Hormone 1.31 uIU/mL (0.32-4.0); Vitamin B12 698 pg/mL (200-900)
== END 2023-03-09 14:57 | disposition home or self-care (01) ==
LOC: HO.LAB 14:56
PROVIDERS: Visit Provider Internal Medicine
DX: I50.33 Acute on chronic diastolic (congestive) heart failure (principal); J44.9 Chronic obstructive pulmonary disease, unspecified; K21.9 Gastro-esophageal reflux disease without esophagitis; I11.0 Hypertensive heart disease with heart failure; N17.9 Acute kidney failure, unspecified; K91.81 Other intraoperative complications of digestive system; R73.03 Prediabetes
CPT/HCPCS: 36415; 80048; 80053; 82248; 82607; 83036; 84439; 84443; 85025

== ENCOUNTER 2023-04-07 14:44 | Outpatient (REF) | payer MEDICARE, MEDICAID, SELFPAY ==
[2023-04-07 15:40] LABS: Influenza A PCR NEGATIVE (Negative); Influenza B PCR NEGATIVE (Negative); Resp Syncy Virus RNA Qual PCR NEGATIVE (Negative); SARS COV2 PCR INHOUSE POSITIVE (Negative)
== END 2023-04-07 14:45 | disposition home or self-care (01) ==
LOC: HO.LNP 14:44
PROVIDERS: Visit Provider Internal Medicine
DX: Z20.822 Contact with and (suspected) exposure to COVID-19 (principal); R05.9 Cough, unspecified
CPT/HCPCS: 0241U

== ENCOUNTER 2023-05-18 15:38 | Inpatient (IN) | payer MEDICARE, MEDICAID, SELFPAY ==
--- NOTE | ~2023-05-18 | US_ITS ---
EXAMINATION: US VENOUS ULTRASOUND WITH DOPPLER LOWER EXTREMITY, LEFT CLINICAL INFORMATION: Swelling. COMPARISON: None available. TECHNIQUE: Ultrasound of the deep veins is performed from the hip to the calf with compression sonography and color and pulse Doppler assessment. Spectral analysis with color-flow imaging is performed. FINDINGS: There is normal venous compression and respiratory variation and augmented flow. The visualized common femoral vein, superficial femoral vein, profunda femoral vein, popliteal vein, and the trifurcation region shows no evidence of deep venous thrombosis. Normal vascular flow seen in the posterior tibial vein and midcalf. The peroneal vein is not visualized. There is no significant popliteal fossa cyst. If the patient's symptoms persist, followup ultrasound in 5 days 7 days might be of value to exclude proximal propagation from a non-visualized calf vein. US/US venous duplex LE LT IMPRESSION: No DVT demonstrated in the left lower extremity.
--- NOTE | ~2023-05-18 | XR_ITS ---
EXAMINATION: XR FOOT, LEFT CLINICAL INFORMATION: Fall one week ago COMPARISON: None available. TECHNIQUE: AP, lateral, and oblique views of the left foot. FINDINGS: There is diffuse osteopenia. There is no visible acute fracture, dislocation or subluxation. The ankle mortise and subtalar joints are normal. There is mild loss of intertarsal and tarsometatarsal joint space with dorsal tarsometatarsal spurring. There is moderate dorsal foot soft tissue swelling. XR/XR foot LT min 3V IMPRESSION: Moderate dorsal foot soft tissue swelling. There is no visible fracture seen. However given severe osteopenia fracture can be missed. Consider repeat left foot exam if 1-2 weeks. Mild degenerative changes intertarsal and tarsometatarsal joints.
--- NOTE | ~2023-05-18 | CT_ITS ---
EXAMINATION: CT ANGIOGRAM OF THE CHEST WITH AND WITHOUT CONTRAST (CT PULMONARY ANGIOGRAM FOR PE) CLINICAL INFORMATION: Reason for Exam hx PE, new onset a-fib, SOB COMPARISON: 10/05/2022 TECHNIQUE: Prior to contrast administration, noncontrast localization images were obtained. Subsequently, multidetector volumetric imaging was performed from the thoracic inlet to below the diaphragms following the administration of 100 mL Omnipaque 350 intravenous contrast. No contrast reaction reported Sagittal, coronal, and MIP oblique sagittal reformatted images were obtained on the CT workstation, uploaded to PACS, and reviewed. This CT examination was performed using dose optimization techniques as appropriate, variously including the following: *Automated exposure control *Adjustment of mA and/or kV according to patient size (this includes techniques or standardized protocols for targeted exams where dose is matched to indication/reason for exam; i.e. extremities or head) *Use of iterative reconstruction technique Total exam dose-length product 481 mGy-cm FINDINGS: QUALITY OF STUDY/CONTRAST BOLUS: Satisfactory. PULMONARY ARTERIES: No pulmonary emboli. THORACIC AORTA: No aneurysm. Moderate atherosclerotic calcifications. LUNG: The central airways are patent. Small right-sided pleural effusion with lower lobe atelectasis. Linear atelectasis in the left lower lobe and along the right minor fissure. No pneumothorax. No suspicious pulmonary nodules. MEDIASTINUM: Enlarged heart size. No pericardial effusion. No hilar or mediastinal lymphadenopathy. No evidence of septal bowing or right heart strain. Partially visualized calcified nodule in the right lobe of the thyroid gland measures 2.4 cm. CORONARY ARTERY CALCIFICATION: Present CHEST WALL/AXILLA: No axillary or internal mammary lymphadenopathy. OSSEOUS STRUCTURES: No acute or suspicious osseous abnormality. Vacuum disc phenomenon throughout the spine. UPPER ABDOMEN: Cholelithiasis. Partial pancreatic atrophy. Small hiatal hernia. No reflux of contrast into the hepatic veins to suggest elevated right heart pressures. CT/CT angio chest PE protocol IMPRESSION: 1. No pulmonary embolism. 2. Small right-sided pleural effusion. Bibasilar atelectasis. 3. Partially visualized calcified nodule in the right lobe of the thyroid gland. This has been previously evaluated with thyroid ultrasound. VTE: negative
--- NOTE | ~2023-05-18 | XR_ITS ---
EXAMINATION: XR CHEST CLINICAL INFORMATION: Shortness of breath. COMPARISON: Chest radiograph 10/08/2022. TECHNIQUE: Frontal view of the chest was obtained. FINDINGS: Stable prominence of the cardiomediastinal silhouette. Tortuous atherosclerotic thoracic aorta. Low lung volumes. Increased diffuse interstitial coarsening with bibasilar patchy opacities and small bilateral pleural effusions. No pneumothorax. No discrete displaced osseous fractures. XR/XR chest 1V IMPRESSION: Worsening pulmonary aeration with increased interstitial coarsening, bibasilar patchy opacities and small bilateral pleural effusions. Findings are nonspecific and could be associated with a combination of pulmonary edema and an atypical infection. Continued follow-up recommended to ensure appropriate resolution.
--- NOTE | 2023-05-18 15:51 | ECG_ITS ---
Test Reason : dyspnea Blood Pressure : / mmHG Vent. Rate : 133 BPM Atrial Rate : 000 BPM P-R Int : 000 ms QRS Dur : 100 ms QT Int : 256 ms P-R-T Axes : 000 -05 -34 degrees QTc Int : 381 ms Atrial fibrillation with rapid ventricular response Low voltage QRS Incomplete right bundle branch block Nonspecific T wave abnormality Abnormal ECG When compared with ECG of 08-OCT-2022 15:35, Significant changes have occurred Referred By: Vanessa Gallo Electronically Signed By:JAK LANDON
[2023-05-18 15:53] VITALS: BP 121/76; BP 99/62; PULSE 102; PULSE 83; RESP 28; TEMP 37; O2SAT 95; O2SAT 96; BMI 42.6
[2023-05-18 15:59] VITALS: PULSE 83; O2SAT 94
[2023-05-18] MEDS: Albuterol Sulfate 7.5 MG, Albuterol/Iprat 2.5/0.5MG 3 ML 3 ML INHALE (15:59)
[2023-05-18 16:01] VITALS: PULSE 84; RESP 20; O2SAT 95
--- NOTE | 2023-05-18 16:41 | ED.SOB ---
HPI - SOB/Dyspnea General Chief Complaint: Dyspnea Stated Complaint: FAILURE TO THRIVE NOT EATING Time Seen by Provider: 05/18/23 16:08 Source: patient Mode of arrival: EMS Limitations: no limitations History of Present Illness HPI Narrative: Patient is an 78-year-old female presents emergency department via EMS for evaluation of shortness of breath. Reportedly she has had increasing shortness of breath for the past week in feeling generalized weakness. She also reports unilateral swelling; to the left foot with mild erythema and pain. Reports a vague history of a fall approximately 1-2 weeks ago, without any obvious injury at that time to the foot, and she did not receive medical evaluation afterwards. Denies dizziness, lightheadedness, headache, vision changes, neck pain, chest pain, nausea, vomiting, abdominal pain, numbness or tingling of the extremities. 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 Olvera Related Data Home Medications Medication Instructions Recorded Confirmed atorvastatin 20 mg tablet 20 mg PO BEDTIME 10/13/20 05/18/23 omeprazole 20 mg capsule,delayed 20 mg PO DAILY@0630 10/13/20 05/18/23 release albuterol sulfate 2.5 mg/3 mL 1 vial inhalation Q4H PRN 01/07/22 05/18/23 (0.083 %) solution for nebulization Shortness Of Breath albuterol sulfate 90 mcg/actuation 2 puff inhalation QID PRN 01/07/22 05/18/23 aerosol inhaler Shortness Of Breath docusate sodium 100 mg capsule 100 mg PO BID-TID PRN Constipation 01/07/22 05/18/23 metoprolol tartrate 25 mg tablet 0.5 tab PO BID 01/07/22 05/18/23 B-complex with vitamin C 1 tab PO DAILY@1500 10/04/22 05/18/23 aspirin 81 mg tablet,delayed 81 mg PO MOWEFR@2100 10/04/22 05/18/23 release buspirone 5 mg tablet 1 tab PO BID PRN Anxiety 10/04/22 05/18/23 cholecalciferol (vitamin D3) 10 10 mcg PO BEDTIME 10/04/22 05/18/23 mcg (400 unit) tablet (Vitamin D3) lutein 20 mg capsule 20 mg PO BEDTIME 10/04/22 05/18/23 melatonin 5 mg tablet 5 mg PO BEDTIME PRN Insomnia 10/04/22 05/18/23 tramadol 50 mg tablet 1 tab PO BID PRN Pain 10/04/22 05/18/23 Previous Rx's Medication Instructions Recorded fluticasone furoate 100 1 puff inhalation RDAILY #1 ea 11/03/20 mcg-vilanterol 25 mcg/dose inhalation powder (Breo Ellipta) guaifenesin 600 mg tablet, 600 mg PO BID #20 tabs 11/03/20 extended release 12 hr (Mucinex) torsemide 20 mg tablet 40 mg PO DAILY #60 tabs 10/12/22 Allergies Allergy/AdvReac Type Severity Reaction Status Date / Time ceftriaxone [From Rocephin] Allergy Unknown Unknown Verified 10/05/22 01:45 vancomycin Allergy Unknown itch, Verified 10/05/22 01:45 rash, hives Review of Systems Review of Systems: Constitutional : No Fever, No Chills ENT/Mouth : No sore throat, No Rhinorrhea, No Swallowing Difficulty Eyes: No Eye Pain, No Swelling, No Redness Cardiovascular : No Chest Pain, positive SOB, positive Orthopnea, positive Edema Respiratory : No Cough, No Sputum, No Wheezing, positive dyspnea Gastrointestinal : No Nausea, No Vomiting, No Diarrhea, No abdominal Pain, No Hematochezia, No Melena Genitourinary : No Dysuria, No Urinary Frequency, No Hematuria Musculoskeletal : No joint pain, No Myalgias Skin : No Skin Lesions, No rash Neuro : No Weakness, No Numbness, No Dizziness, No Headache Psych : No Anxiety/Panic, No Depression Heme/Lymph: No Bruising, No Lymphadenopathy Endocrine : No Polyuria, No Polydipsia Yes all other systems are reviewed and are negative [facility] Past Medical History Attestation statement: The following information was validated with the patient. Source: old records reviewed Medical History Acute and chronic respiratory failure with hypercapnia Cholecystitis COPD (chronic obstructive pulmonary disease) Cor pulmonale, chronic Diastolic CHF with preserved left ventricular function, NYHA class 2 Dilated cbd, acquired Emphysema lung Gallstone Hyperkalemia Leukocytosis WOJCIECH (obstructive sleep apnea) Pancreatitis Supplemental oxygen dependent Social History Social History Household Members: Children Housing: House Do you presently have visiting nurse or other home services: No Unable to assess alcohol history related to: Unknown Alcohol intake: never Patient Tobacco Use Status: Former Tobacco user Tobacco use type: Cigarette Smoked in Last 30 Days: No Use of substances other than those prescribed or required for medical reasons: No Substance Use Type: Unknown Advance Directives: No Advance Directives Information Provided: No service: No Current occupational status: retired Physical Exam Vital Signs: Vital Signs: Last Vital Signs Temp 98.6 F 05/18/23 15:53 Pulse 126 H 05/18/23 20:00 Resp 20 05/18/23 20:00 BP 132/61 05/18/23 20:00 Pulse Ox 95 05/18/23 20:00 O2 Del Method Nasal Cannula 05/18/23 20:00 O2 Flow Rate 4 05/18/23 20:00 Oxygen Flow Rate 4 05/18/23 15:53 BMI result Body Mass Index 42.6 Appearance: Alert.?Oriented to person, place and time. No acute distress.?Normal affect. Eyes: Pupils equal, round and reactive to light.? ENT: Pharynx normal.?? Neck: Normal inspection.? Neck supple.?? CVS: Atrial fibrillation with RVR. Respiratory: No respiratory distress.? Lung sounds with rales bilaterally Abdomen: Soft and non-tender. Normoactive bowel sounds. ?? Skin: Skin warm and dry.? Normal skin color.? Extremities: Localized swelling to the left foot with mild erythema and pain.? No calf ttp? Neuro: Moves all extremities spontaneously. Sensation intact bilaterally. No focal neuro deficits Course Reevaluation(s) Reevaluation #1: Patient received 3 doses of diltiazem IV push; 10 mg, 20 mg, 25 mg, although she did not convert to normal sinus rhythm her rate was more appropriately controlled 90s-110s, therefore diltiazem infusion was initiated. CBC revealing no leukocytosis, no anemia. Coags are normal. Troponin 17.4 which is down trended from last prior in September 2022 when she had NSTEMI, likely demand ischemia, low suspicion for ACS at this time, will obtain delta troponin. BNP of 453, clinically does not appear to be volume overloaded. Time: 17:45 Reevaluation #2: Spoke with patient's daughter's on phone who also endorse that she had similar symptoms that she is presenting today in September of 2022 and she was subsequent diagnosed with a pulmonary embolism October 2020. It is unclear to me at this time as to why she is not on anticoagulant. Will obtain CT angio chest at this time. Venous duplex ultrasound of the left lower extremity reveals no evidence of DVT, XR imaging of the foot reveals no acute fracture, however recommendations for repeat imaging if concern for osteopenia fracture in 1-2 weeks Time: 18:17 Reevaluation #3: CTA of the chest reveals no evidence of pulmonary embolism, small right sided pleural effusion and bibasilar atelectasis consistent with chest x-ray findings. Discussed this case with hospitalist, Dr. Almanza who accepts patient for admission to medicine service. CHADS-VASC score of 8. Time: 21:06 Medications Administered Generic Name Dose Route Start Last Admin Trade Name Freq PRN Reason Stop Dose Admin Enoxaparin Sodium 40 mg 05/18/23 21:45 05/18/23 22:19 Enoxaparin Sodium 40 Mg/0.4 Ml Syringe SUBCUT 40 mg Q24H KALPESH Administration Diltiazem HCl 125 mg/ Sodium 125 mls @ 0 mls/hr 05/18/23 18:30 05/18/23 22:16 Chloride IVCONT 15 mg/hr .Q0M KALPESH 15 mls/hr Titration Protocol Per Protocol Discontinued Medications Generic Name Dose Route Start Last Admin Trade Name Freq PRN Reason Stop Dose Admin Albuterol Sulfate 7.5 mg/ 0 mg 05/18/23 15:52 05/18/23 15:59 Albuterol/Ipratropium 3 ml INHALE 05/18/23 15:53 2.5 each ONCE ONE Administration Diltiazem HCl 10 mg 05/18/23 16:30 05/18/23 16:49 Diltiazem Hcl 50 Mg/10 Ml Vial IVPUSH 05/18/23 16:31 10 mg ONCE ONE Administration Diltiazem HCl 20 mg 05/18/23 17:15 05/18/23 17:23 Diltiazem Hcl 50 Mg/10 Ml Vial IVPUSH 05/18/23 17:16 20 mg STAT STA Administration Diltiazem HCl 25 mg 05/18/23 17:38 05/18/23 17:47 Diltiazem Hcl 50 Mg/10 Ml Vial IVPUSH 05/18/23 17:39 25 mg STAT STA Administration Furosemide 40 mg 05/18/23 21:47 05/18/23 22:19 Furosemide 40 Mg/4 Ml Vial IVPUSH 05/18/23 21:48 40 mg ONCE ONE Administration Protocol Azithromycin 500 mg/ Sodium 250 mls @ 125 mls/hr 05/18/23 16:40 05/18/23 22:53 Chloride IV 05/18/23 18:39 Infused ONCE ONE Infusion Doxycycline Hyclate 100 mg/ 250 mls @ 166.67 mls/hr 05/18/23 16:40 05/18/23 20:17 Sodium Chloride IV 05/18/23 18:09 Infused ONCE ONE Infusion Iohexol 100 ml 05/18/23 19:50 05/18/23 19:51 Iohexol 350 Mg/Ml 100 Ml Infus..Btl IV 05/18/23 19:51 65 ml ONCE ONE Administration Medical Decision Making Medical Decision Making MDM Narrative: Patient is an 78-year-old female with past medical history of end STEMI, diastolic heart failure with preserved EF on echo in 09/2022, COPD, chronic supplemental oxygen dependence, presenting to emergency department for shortness of breath. 1634: Will obtain CBC to evaluate for leukocytosis/ anemia, CMP and lipase to evaluate for abnormal electrolytes /abnormal renal function/ abnormal hepatic/biliary function, EKG and troponin to evaluate for ischemia/ACS, BNP. Chest x-ray to evaluate for consolidation/ infiltrate/ mass/ pulmonary congestion and Urinalysis. Patient already received a DuoNeb updraft as ordered by a previous provider prior to arrival. Initial EKG revealing atrial fibrillation with RVR, new onset, diltiazem IV push ordered, CHADS-VASC score of 8 - clinically concern for pulmonary embolism, would defer selection for anticoagulation until CTA is resulted. at this time with tachycardia and tachypnea meeting SIRS criteria, lactic acid and blood cultures have already been obtained, patient to receive azithromycin and doxycycline IV for presumed COPD exacerbation versus pneumonia, would defer fluid bolus at this time given history of CHF, currently no hypotension or sign of organ dysfunction. Differential Diagnosis Differential Diagnoses: The differential diagnosis associated with the presentation includes (COPD exacerbation, pneumonia, CHF, ACS, atrial fibrillation, pulmonary embolism) Admission/Observation Consideration of admission/observation: Escalation of care including admission/observation considered (Considered admission for shortness of breath, new onset atrial fibrillation, see course narrative for further detail) Lab Data MDM Lab Attestation statement: I reviewed the patient's lab results. (See course narrative) 05/18/23 16:43 05/18/23 16:43 Labs: Lab Results 05/18/23 05/18/23 05/18/23 Range/Units 16:41 16:43 16:43 WBC 8.5 (4.8-10.8) X10*3/uL RBC 3.92 L (4.20-5.50) X10*6/uL Hgb 12.0 (12.0-16.0) g/dl Hct 39.7 (37.0-47.0) % MCV 101.3 H (80.0-98.0) fL MCH 30.6 (27.0-33.0) pg MCHC 30.2 L (31.0-35.0) g/dl RDW 14.6 (11.0-16.0) % Plt Count TNP MPV 12.5 H (9.4-12.3) fL Immature Gran % (Auto) 0.5 H (0.0-0.4) % Neut % (Auto) 75.4 H (45-73) % Lymph % (Auto) 14.8 L (20-40) % [place] % (Auto) 8.5 (2-11) % Eos % (Auto) 0.6 (0-4) % Baso % (Auto) 0.2 (0-2) % Lymph # (Auto) 1.3 (1.2-4.9) X10*3/uL [place] # (Auto) 0.7 (0.1-1.2) X10*3/uL Eos # (Auto) 0.1 (0.0-0.4) X10*3/uL Baso # (Auto) 0.0 (0.0-0.2) X10*3/uL Abs Immat Gran (auto) 0.04 H (0.00-0.03) X10*3/uL Absolute Neuts (auto) 6.4 (2.0-8.3) x10*3/uL Absolute Nucleated RBC 0.000 (0.0-0.012) X10*3/uL Nucleated RBC % (auto) 0.0 (0.0-0.2) /100WBC PT 13.0 (11.1-13.3) SEC INR 1.1 (0.9-1.1) VBG pH (7.32-7.43) VBG pCO2 mmHg VBG pO2 mmHg VBG HCO3 (22-26) mmol/L VBG O2 Saturation % VBG Base Excess mmol/L Sodium (135-145) mmol/L Potassium (3.3-5.1) mmol/L Chloride (96-108) mmol/L Carbon Dioxide (22-29) mmol/L Anion Gap (12-20) BUN (9-16) mg/dL Creatinine (0.5-1.4) mg/dL Estim Creat Clear Calc Estimated GFR Random Glucose (60-115) mg/dL Lactic Acid 1.7 (0.5-2.0) mmol/L Calcium (8.4-10.2) mg/dL Total Bilirubin (0.0-1.0) mg/dL AST (5-31) U/L ALT (0-31) U/L Alkaline Phosphatase (39-117) U/L Troponin I High Sens (<3.5-17.0) ng/L B-Natriuretic Peptide (<100) pg/mL Total Protein (6.5-8.0) g/dL Albumin (3.5-5.0) g/dL TSH (0.32-4.0) uIU/mL Urine Color Urine Appearance Urine pH (5.0-9.0) Ur Specific [place] (1.005-1.025) Urine Protein (Neg-Trace) mg/dL Urine Glucose (UA) (Negative) mg/dL Urine Ketones (Negative) mg/dL Urine Blood (Negative) Urine Nitrite (Negative) Ur Leukocyte Esterase (Negative) Urine RBC (0-2) /HPF Urine WBC (0-5) /HPF Ur Squamous Epith Cells (0-2) /HPF Urine Bacteria (None Seen) Hyaline Casts (0-2) /LPF 05/18/23 05/18/23 05/18/23 Range/Units 16:43 16:43 16:43 WBC (4.8-10.8) X10*3/uL RBC (4.20-5.50) X10*6/uL Hgb (12.0-16.0) g/dl Hct (37.0-47.0) % MCV (80.0-98.0) fL MCH (27.0-33.0) pg MCHC (31.0-35.0) g/dl RDW (11.0-16.0) % Plt Count MPV (9.4-12.3) fL Immature Gran % (Auto) (0.0-0.4) % Neut % (Auto) (45-73) % Lymph % (Auto) (20-40) % [place] % (Auto) (2-11) % Eos % (Auto) (0-4) % Baso % (Auto) (0-2) % Lymph # (Auto) (1.2-4.9) X10*3/uL [place] # (Auto) (0.1-1.2) X10*3/uL Eos # (Auto) (0.0-0.4) X10*3/uL Baso # (Auto) (0.0-0.2) X10*3/uL Abs Immat Gran (auto) (0.00-0.03) X10*3/uL Absolute Neuts (auto) (2.0-8.3) x10*3/uL Absolute Nucleated RBC (0.0-0.012) X10*3/uL Nucleated RBC % (auto) (0.0-0.2) /100WBC PT (11.1-13.3) SEC INR (0.9-1.1) VBG pH (7.32-7.43) VBG pCO2 mmHg VBG pO2 mmHg VBG HCO3 (22-26) mmol/L VBG O2 Saturation % VBG Base Excess mmol/L Sodium 143 (135-145) mmol/L Potassium 4.2 (3.3-5.1) mmol/L Chloride 96 (96-108) mmol/L Carbon Dioxide 36 H (22-29) mmol/L Anion Gap 15 (12-20) BUN 26 H (9-16) mg/dL Creatinine 0.89 (0.5-1.4) mg/dL Estim Creat Clear Calc 66.4 Estimated GFR > 60 Random Glucose 135 H (60-115) mg/dL Lactic Acid (0.5-2.0) mmol/L Calcium 9.6 (8.4-10.2) mg/dL Total Bilirubin 0.4 (0.0-1.0) mg/dL AST 27 (5-31) U/L ALT 25 (0-31) U/L Alkaline Phosphatase 90 (39-117) U/L Troponin I High Sens 17.4 H D (<3.5-17.0) ng/L B-Natriuretic Peptide 453 H (<100) pg/mL Total Protein 6.8 (6.5-8.0) g/dL Albumin 3.6 (3.5-5.0) g/dL TSH (0.32-4.0) uIU/mL Urine Color Urine Appearance Urine pH (5.0-9.0) Ur Specific [place] (1.005-1.025) Urine Protein (Neg-Trace) mg/dL Urine Glucose (UA) (Negative) mg/dL Urine Ketones (Negative) mg/dL Urine Blood (Negative) Urine Nitrite (Negative) Ur Leukocyte Esterase (Negative) Urine RBC (0-2) /HPF Urine WBC (0-5) /HPF Ur Squamous Epith Cells (0-2) /HPF Urine Bacteria (None Seen) Hyaline Casts (0-2) /LPF 05/18/23 05/18/23 05/18/23 Range/Units 16:43 16:46 18:48 WBC (4.8-10.8) X10*3/uL RBC (4.20-5.50) X10*6/uL Hgb (12.0-16.0) g/dl Hct (37.0-47.0) % MCV (80.0-98.0) fL MCH (27.0-33.0) pg MCHC (31.0-35.0) g/dl RDW (11.0-16.0) % Plt Count MPV (9.4-12.3) fL Immature Gran % (Auto) (0.0-0.4) % Neut % (Auto) (45-73) % Lymph % (Auto) (20-40) % [place] % (Auto) (2-11) % Eos % (Auto) (0-4) % Baso % (Auto) (0-2) % Lymph # (Auto) (1.2-4.9) X10*3/uL [place] # (Auto) (0.1-1.2) X10*3/uL Eos # (Auto) (0.0-0.4) X10*3/uL Baso # (Auto) (0.0-0.2) X10*3/uL Abs Immat Gran (auto) (0.00-0.03) X10*3/uL Absolute Neuts (auto) (2.0-8.3) x10*3/uL Absolute Nucleated RBC (0.0-0.012) X10*3/uL Nucleated RBC % (auto) (0.0-0.2) /100WBC PT (11.1-13.3) SEC INR (0.9-1.1) VBG pH 7.37 (7.32-7.43) VBG pCO2 71 mmHg VBG pO2 37 mmHg VBG HCO3 42 H (22-26) mmol/L VBG O2 Saturation 54.0 % VBG Base Excess 13.8 mmol/L Sodium (135-145) mmol/L Potassium (3.3-5.1) mmol/L Chloride (96-108) mmol/L Carbon Dioxide (22-29) mmol/L Anion Gap (12-20) BUN (9-16) mg/dL Creatinine (0.5-1.4) mg/dL Estim Creat Clear Calc Estimated GFR Random Glucose (60-115) mg/dL Lactic Acid (0.5-2.0) mmol/L Calcium (8.4-10.2) mg/dL Total Bilirubin (0.0-1.0) mg/dL AST (5-31) U/L ALT (0-31) U/L Alkaline Phosphatase (39-117) U/L Troponin I High Sens (<3.5-17.0) ng/L B-Natriuretic Peptide (<100) pg/mL Total Protein (6.5-8.0) g/dL Albumin (3.5-5.0) g/dL TSH 1.68 (0.32-4.0) uIU/mL Urine Color Yellow Urine Appearance Cloudy Urine pH 5.5 (5.0-9.0) Ur Specific [place] 1.015 (1.005-1.025) Urine Protein Negative (Neg-Trace) mg/dL Urine Glucose (UA) Negative (Negative) mg/dL Urine Ketones Negative (Negative) mg/dL Urine Blood Negative (Negative) Urine Nitrite Negative (Negative) Ur Leukocyte Esterase Small (1+) H (Negative) Urine RBC 0-2 (0-2) /HPF Urine WBC 6-10 (0-5) /HPF Ur Squamous Epith Cells >20 (0-2) /HPF Urine Bacteria 4+ (None Seen) Hyaline Casts 6-10 (0-2) /LPF Independent Interpretation I performed an independent interpretation of an: EKG and Plain X-Ray (I personally interpreted chest x-ray and agree with radiologist impression; concerning for pulmonary edema and bibasilar opacities and bilateral pleural effusions) Interpretation: Rate: 133 Rhythm:? Atrial fibrillation with RVR? Normal QRS complex.?? ST T wave :??No ST elevation, no ST depression [id number] prior studies:? September 2022 The study has been interpreted contemporaneously by me. Radiology Impression Discussion of test interpretation with radiology: I have reviewed the radiologist's reading. Radiologist Impression: XR/XR chest 1V IMPRESSION: Worsening pulmonary aeration with increased interstitial coarsening, bibasilar patchy opacities and small bilateral pleural effusions. Findings are nonspecific and could be associated with a combination of pulmonary edema and an atypical infection. Continued follow-up recommended to ensure appropriate resolution. ? XR/XR foot LT min 3V IMPRESSION: Moderate dorsal foot soft tissue swelling. There is no visible fracture seen. However given severe osteopenia fracture can be missed.? Consider repeat left foot exam if 1-2 weeks. ? Mild degenerative changes intertarsal and tarsometatarsal joints. US/US venous duplex LE LT IMPRESSION: No DVT demonstrated in the left lower extremity. Independent Historian Clinical information obtained from an independent historian. History obtained from or confirmed by: Other (Patient's daughter) External Record Review External record reviewed: Inpatient record (Hospital admissions in 2020 and 2021) and Outpatient record (Pulmonology notes) Critical Care Time Critical Care Time Critical Care Time: Yes Total Critical Care Time: 55 Attestation: I personally attest to this critical care time spent taking care of the patient exclusive of all other billable procedures was approximately 55 minutes including initial evaluation of patient, ordering tests, x-ray interpretation, EKG interpretation, medical consultation, documentation, re-evaluation. Discharge Plan Discharge Clinical Impression: Acute on chronic diastolic (congestive) heart failure, Atrial fibrillation with RVR, COPD (chronic obstructive pulmonary disease) Patient Disposition: Admitted As Inpatient
[2023-05-18] MEDS: dilTIAZem HCL 50 MG/10 ML VIAL 10 MG IVPUSH (16:49)
[2023-05-18 16:50] LABS: MANUAL DIFF FLAG NO
[2023-05-18 16:53] LABS: Basophils Percent Auto 0.2 % (0-2); Eosinophils Absolute Auto 0.1 X10*3/uL (0.0-0.4); Eosinophils Percent Auto 0.6 % (0-4); Hematocrit 39.7 % (37.0-47.0); Imm Gran Abs Auto 0.04 X10*3/uL (0.00-0.03); Imm Gran Pct Auto 0.5 % (0.0-0.4); Lymphocytes Absolute Auto 1.3 X10*3/uL (1.2-4.9); Lymphocytes Percent Auto 14.8 % (20-40); Mean Corpuscular HGB Conc 30.2 g/dl (31.0-35.0); Mean Corpuscular Hemoglobin 30.6 pg (27.0-33.0); Mean Corpuscular Volume 101.3 fL (80.0-98.0); Mean Platelet Volume 12.5 fL (9.4-12.3); Monocytes Absolute Auto 0.7 X10*3/uL (0.1-1.2); Monocytes Percent Auto 8.5 % (2-11); Neutrophils Absolute Auto 6.4 x10*3/uL (2.0-8.3); Neutrophils Percent Auto 75.4 % (45-73); Red Blood Count 3.92 X10*6/uL (4.20-5.50); Red Cell Distribution Width 14.6 % (11.0-16.0); White Blood Count 8.5 X10*3/uL (4.8-10.8)
[2023-05-18 16:55] LABS: VBG Base Excess 13.8 mmol/L; VBG HCO3 42 mmol/L (22-26); VBG pCO2 71 mmHg; VBG pH 7.37 (7.32-7.43); VBG pO2 37 mmHg
[2023-05-18 17:00] LABS: INTERNATIONAL NORM RATIO 1.1 (0.9-1.1)
[2023-05-18 17:01] LABS: Lactic Acid 1.7 mmol/L (0.5-2.0)
[2023-05-18 17:06] LABS: Venous Blood Gas Refer to POC result
[2023-05-18 17:06] LABS: Alanine Aminotransferase 25 U/L (0-31); Albumin Level 3.6 g/dL (3.5-5.0); Alkaline Phosphatase 90 U/L (39-117); Anion Gap 15 (12-20); Aspartate Amino Transferase 27 U/L (5-31); Bilirubin Total 0.4 mg/dL (0.0-1.0); Blood Urea Nitrogen 26 mg/dL (9-16); Calcium 9.6 mg/dL (8.4-10.2); Carbon Dioxide 36 mmol/L (22-29); Chloride 96 mmol/L (96-108); Creatinine Clr Calc Pharmacy 66.4; Estimated Glomerular Filt Rate > 60; Glucose Random 135 mg/dL (60-115); Potassium 4.2 mmol/L (3.3-5.1); Sodium 143 mmol/L (135-145); Total Protein 6.8 g/dL (6.5-8.0)
[2023-05-18 17:11] LABS: B Type Natriuretic Peptide 453 pg/mL (<100)
[2023-05-18 17:13] LABS: Troponin-I High Sensitivity 17.4 ng/L (<3.5-17.0)
[2023-05-18] MEDS: dilTIAZem HCL 50 MG/10 ML VIAL 20 MG IVPUSH (17:23)
[2023-05-18 17:45] VITALS: BP 111/59; PULSE 140; RESP 18; O2SAT 90
--- NOTE | 2023-05-18 17:45 | PC.NURSE ---
back t bed from commode with minimal assist. SOB with exertion. remains in a fib. recovers with rest and sitting upright.
[2023-05-18] MEDS: dilTIAZem HCL 50 MG/10 ML VIAL 25 MG IVPUSH (17:47)
[2023-05-18] MEDS: Doxycycline Hyclate 100 MG in 0.9 % Sodium Chloride 250 ML 166.67 MG IV (17:55)
--- NOTE | 2023-05-18 18:10 | PC.NURSE ---
the two daughters of the pt called and spoke with this RN for an update on their mother with their mother's permission. the daughters stated that in September of 2020, the patient had similar symptoms, including the edema of the left foot and was diagnosed by Dr. Navas with a PE. provider notified. the pt's daughters left their numbers and would like to be notified and updated with the pt's plan of care and status. Joselyn: [phone] Bethany (Proxy): [phone]
[2023-05-18] MEDS: dilTIAZem HCL 125 MG in 0.9 % Sodium Chloride 100 ML 10 MG IVCONT (18:40)
--- NOTE | 2023-05-18 19:04 | PC.NURSE ---
Assumed care of pt. Pt sitting upright on stretcher, visibly dyspnaic, O2 saturdation >94% on 4L via NC. IV medications currently running. Plan for CTA, probably admission.
[2023-05-18 19:05] LABS: Appearance Urine Cloudy; Color Urine Yellow; Glucose Urine UA Negative (Negative); Leukocyte Esterase Urine Small (1+) (Negative); Nitrite Urine Negative (Negative); PH 5.5 (5.0-9.0); Specific Gravity - Urine 1.015 (1.005-1.025); UMIC TRIGGER UACC YES; Urine Blood Negative (Negative); Urine Ketones Negative (Negative); Urine Protein Negative (Neg-Trace)
[2023-05-18 19:35] LABS: Bacteria Urine 4+ (None Seen); RBC Urine 0-2 /HPF (0-2); Squamous Epithelial Cell Urine >20 /HPF (0-2); UACC Culture Trigger YES
[2023-05-18] MEDS: iohexoL 350 MG/ML 100 ML INFUS..BTL IV (19:51)
[2023-05-18 20:00] VITALS: BP 132/61; PULSE 126; RESP 20; O2SAT 95
--- NOTE | 2023-05-18 20:04 | PC.NURSE ---
Titrated Cardizem up for target HR.
[2023-05-18] MEDS: Azithromycin 500 MG in 0.9 % Sodium Chloride 250 ML 125 MG IV (20:16)
--- NOTE | 2023-05-18 21:53 | PM.IMHP ---
History of Present Illness Date of Service: 05/18/23 Attending physician on admission: Aliya Almanza Chief Complaint: SOB Pt is an 78-year-old female with a PMH significant for?HFpEF, COPD on home O2, HTN, acute on chronic respiratory failure with hypercapnia, WOJCIECH non-compliant with CPAP, ephysema, cor pulmonale, cholecystitis, and depression who presents to the ED with?worsening shortness of breath and fatigue for the past week. Patient with chronic SOB secondary to COPD with a 60+ pack-year smoking history. SOB and fatigue have worsened to where pt could no longer travel from bedroom to bathroom and had a commode placed in the bedroom to assist with toileting. Pt also reports increasing lower leg edema, especially in the left ankle which has a tightness and pressure to it. She denies history of AFib. Pt apparently has a mechanical fall in her house on April 14, though complains of no specific muskuloskeletal pain or injury. Denies chest pain/pressure, palpitations. No fever, chills, nausea, vomiting, diarrhea, abdominal pain. Denies lower leg, knee, ankle pain. Of note, patient states that she used to be on Eliquis after having a PE, but was taken off it by her anesthesiology teacher d/t delvin, who then placed her on aspirin three times a week. In the ED patient was tachycardic up to 140, tachypneic up to 28, satting at 90% O2 on 4 L NC. Labs were significant for troponin 17.4, BNP 453. Electrolytes WNL. Kidney function baseline. Hepatic function baseline. CXR showed worsening pulmonary aeration with increased interstitial coarsening, bibasilar patchy opacities, and small bilateral pleural effusions. X-ray of left foot found moderate dorsal foot soft tissue swelling with no visible fracture seen. Venous duplex of left lower extremity found no DVT demonstrated. CTA of chest found no pulmonary embolism, but did show small right sided pleural effusion with bibasilar atelectasis. EKG demonstrated AFib with RVR of 133. Pt was treated with albuterol, diltiazem 10 mg, 20 mg, and 25 mg, Doxycycline, metoprolol, azithromycin, his started on a diltiazem drip. Pt will be admitted to the hospital for treatment further evaluation of new onset AFib with RVR and acute on chronic see HFpEF exacerbation. Review of Systems Review of Systems: SOB Fatigue Lower leg edema, particularly in left ankle Denies chest pain/pressure, palpitations No fever, chills, nausea, vomiting, diarrhea Yes all other systems are reviewed and are negative [facility] Medical History Acute and chronic respiratory failure with hypercapnia Cholecystitis COPD (chronic obstructive pulmonary disease) Cor pulmonale, chronic Diastolic CHF with preserved left ventricular function, NYHA class 2 Dilated cbd, acquired Emphysema lung Gallstone Hyperkalemia Leukocytosis WOJCIECH (obstructive sleep apnea) Pancreatitis Supplemental oxygen dependent Social History Household Members: Children Housing: House Do you presently have visiting nurse or other home services: No Unable to assess alcohol history related to: Unknown Alcohol intake: never Patient Tobacco Use Status: Former Tobacco user Tobacco use type: Cigarette Smoked in Last 30 Days: No Use of substances other than those prescribed or required for medical reasons: No Substance Use Type: Unknown Advance Directives: No Advance Directives Information Provided: No service: No Current occupational status: retired [employer] Allergies Allergy/AdvReac Type Severity Reaction Status Date / Time ceftriaxone [From Rocephin] Allergy Unknown Unknown Verified 10/05/22 01:45 vancomycin Allergy Unknown itch, Verified 10/05/22 01:45 rash, hives Active Medications: Current Medications Acetaminophen (Acetaminophen 325 Mg Tablet) 650 mg PO Q6H PRN PRN Reason: Pain, Mild (Pain Scale 1-3) Enoxaparin Sodium (Enoxaparin Sodium 40 Mg/0.4 Ml Syringe) 40 mg SUBCUT Q24H KALPESH Diltiazem HCl 125 mg/ Sodium (Chloride) 125 mls @ 0 mls/hr IVCONT .Q0M KALPESH; Protocol Last Titration: 05/18/23 20:04 Dose: 15 mg/hr, 15 mls/hr Melatonin (Melatonin 3 Mg Tablet) 6 mg PO BEDTIME PRN PRN Reason: Insomnia Ondansetron HCl (Ondansetron Hcl 4 Mg/2 Ml Vial) 4 mg IVPUSH Q8H PRN PRN Reason: Nausea and Vomiting Pharmacy Consult (Consult Rx Perform Med Rec) 1 each MISCELLANE ONCE PRN PRN Reason: Consult order Sodium Chloride (0.9 % Sodium Chloride Flush 3 Ml Syringe) [facility] Medication Instructions Recorded Confirmed Last Taken Type atorvastatin 20 mg tablet 20 mg PO BEDTIME 10/13/20 05/18/23 05/17/23 History omeprazole 20 mg capsule,delayed 20 mg PO DAILY@0630 10/13/20 05/18/23 05/18/23 History release albuterol sulfate 2.5 mg/3 mL 1 vial inhalation Q4H PRN 01/07/22 05/18/23 01/07/22 History (0.083 %) solution for nebulization Shortness Of Breath albuterol sulfate 90 mcg/actuation 2 puff inhalation QID PRN 01/07/22 05/18/23 01/07/22 History aerosol inhaler Shortness Of Breath docusate sodium 100 mg capsule 100 mg PO BID-TID PRN Constipation 01/07/22 05/18/23 05/17/23 History metoprolol tartrate 25 mg tablet 0.5 tab PO BID 01/07/22 05/18/23 05/18/23 History B-complex with vitamin C 1 tab PO DAILY@1500 10/04/22 05/18/23 05/17/23 History aspirin 81 mg tablet,delayed 81 mg PO MOWEFR@2100 10/04/22 05/18/23 05/17/23 History release buspirone 5 mg tablet 1 tab PO BID PRN Anxiety 10/04/22 05/18/23 05/18/23 History cholecalciferol (vitamin D3) 10 10 mcg PO BEDTIME 10/04/22 05/18/23 05/17/23 History mcg (400 unit) tablet (Vitamin D3) lutein 20 mg capsule 20 mg PO BEDTIME 10/04/22 05/18/23 05/17/23 History melatonin 5 mg tablet 5 mg PO BEDTIME PRN Insomnia 10/04/22 05/18/23 05/17/23 History tramadol 50 mg tablet 1 tab PO BID PRN Pain 10/04/22 05/18/23 05/18/23 History Physical Exam Vital Signs and Narrative: Vital Signs: Last Vital Signs Temp 98.6 F 05/18/23 15:53 Pulse 126 H 05/18/23 20:00 Resp 20 05/18/23 20:00 BP 132/61 05/18/23 20:00 Pulse Ox 95 05/18/23 20:00 O2 Del Method Nasal Cannula 05/18/23 20:00 O2 Flow Rate 4 05/18/23 20:00 Oxygen Flow Rate 4 05/18/23 15:53 BMI result Body Mass Index 42.6 Constitutional: Alert, uncomfortable-looking, in no acute distress. Mental Status: Oriented to person, place and time. Eyes: Pupils are equal, round, and reactive to light. Ear, Nose, and Throat: Oropharynx clear, mucous membranes moist. Ears and nose without deformities. Trachea midline. Respiratory: Clear to auscultation bilaterally. No wheezing, rales, or rhonchi. Cardiovascular: Irregularly irregular. No murmurs, rubs, or gallops. Gastrointestinal: Abdomen soft, non-tender, obese. Normal bowel sounds. Neurologic: Cranial nerves II-XII are grossly intact bilaterally. No focal neurological deficits. Moves all extremities spontaneously. Skin: No rashes or lesions noted. Musculoskeletal: No cyanosis or clubbing. Extremities: 1+ pitting edema or lower legs bilaterally, 2+ pitting edema in left ankle. Psychiatric: Normal mood and affect. Results Labs 05/18/23 16:43 05/18/23 16:43 Labs: Laboratory Results - last 24 hr 05/18/23 05/18/23 05/18/23 16:41 16:43 16:43 MCV 101.3 H MCH 30.6 MCHC 30.2 L RDW 14.6 Plt Count TNP MPV 12.5 H Immature Gran % (Auto) 0.5 H Neut % (Auto) 75.4 H Lymph % (Auto) 14.8 L [place] % (Auto) 8.5 Eos % (Auto) 0.6 Baso % (Auto) 0.2 Lymph # (Auto) 1.3 [place] # (Auto) 0.7 Eos # (Auto) 0.1 Baso # (Auto) 0.0 Abs Immat Gran (auto) 0.04 H Absolute Neuts (auto) 6.4 Absolute Nucleated RBC 0.000 Nucleated RBC % (auto) 0.0 PT 13.0 INR 1.1 VBG pH VBG pCO2 VBG pO2 VBG HCO3 VBG O2 Saturation VBG Base Excess Anion Gap Estim Creat Clear Calc Estimated GFR Random Glucose Lactic Acid 1.7 Calcium Total Bilirubin AST ALT Alkaline Phosphatase B-Natriuretic Peptide Total Protein Albumin Urine Color Urine Appearance Urine pH Ur Specific [place] Urine Protein Urine Glucose (UA) Urine Ketones Urine Blood Urine Nitrite Ur Leukocyte Esterase Urine RBC Urine WBC Ur Squamous Epith Cells Urine Bacteria Hyaline Casts 05/18/23 05/18/23 05/18/23 16:43 16:43 16:46 MCV MCH MCHC RDW Plt Count MPV Immature Gran % (Auto) Neut % (Auto) Lymph % (Auto) [place] % (Auto) Eos % (Auto) Baso % (Auto) Lymph # (Auto) [place] # (Auto) Eos # (Auto) Baso # (Auto) Abs Immat Gran (auto) Absolute Neuts (auto) Absolute Nucleated RBC Nucleated RBC % (auto) PT INR VBG pH 7.37 VBG pCO2 71 VBG pO2 37 VBG HCO3 42 H VBG O2 Saturation 54.0 VBG Base Excess 13.8 Anion Gap 15 Estim Creat Clear Calc 66.4 Estimated GFR > 60 Random Glucose 135 H Lactic Acid Calcium 9.6 Total Bilirubin 0.4 AST 27 ALT 25 Alkaline Phosphatase 90 B-Natriuretic Peptide 453 H Total Protein 6.8 Albumin 3.6 Urine Color Urine Appearance Urine pH Ur Specific [place] Urine Protein Urine Glucose (UA) Urine Ketones Urine Blood Urine Nitrite Ur Leukocyte Esterase Urine RBC Urine WBC Ur Squamous Epith Cells Urine Bacteria Hyaline Casts 05/18/23 18:48 MCV MCH MCHC RDW Plt Count MPV Immature Gran % (Auto) Neut % (Auto) Lymph % (Auto) [place] % (Auto) Eos % (Auto) Baso % (Auto) Lymph # (Auto) [place] # (Auto) Eos # (Auto) Baso # (Auto) Abs Immat Gran (auto) Absolute Neuts (auto) Absolute Nucleated RBC Nucleated RBC % (auto) PT INR VBG pH VBG pCO2 VBG pO2 VBG HCO3 VBG O2 Saturation VBG Base Excess Anion Gap Estim Creat Clear Calc Estimated GFR Random Glucose Lactic Acid Calcium Total Bilirubin AST ALT Alkaline Phosphatase B-Natriuretic Peptide Total Protein Albumin Urine Color Yellow Urine Appearance Cloudy Urine pH 5.5 Ur Specific [place] 1.015 Urine Protein Negative Urine Glucose (UA) Negative Urine Ketones Negative Urine Blood Negative Urine Nitrite Negative Ur Leukocyte Esterase Small (1+) H Urine RBC 0-2 Urine WBC 6-10 Ur Squamous Epith Cells >20 Urine Bacteria 4+ Hyaline Casts 6-10 Imaging Radiologist's Impressions: Impressions Chest X-Ray 05/18/23 14:09 IMPRESSION: Worsening pulmonary aeration with increased interstitial coarsening, bibasilar patchy opacities and small bilateral pleural effusions. Findings are nonspecific and could be associated with a combination of pulmonary edema and an atypical infection. Continued follow-up recommended to ensure appropriate resolution. Foot X-Ray 05/18/23 17:04 IMPRESSION: Moderate dorsal foot soft tissue swelling. There is no visible fracture seen. However given severe osteopenia fracture can be missed. Consider repeat left foot exam if 1-2 weeks. Mild degenerative changes intertarsal and tarsometatarsal joints. Venous Duplex 05/18/23 18:08 IMPRESSION: No DVT demonstrated in the left lower extremity. Chest CTA 05/18/23 20:06 IMPRESSION: 1. No pulmonary embolism. 2. Small right-sided pleural effusion. Bibasilar atelectasis. 3. Partially visualized calcified nodule in the right lobe of the thyroid gland. This has been previously evaluated with thyroid ultrasound. VTE: negative Assessment and Plan (1) Acute on chronic diastolic (congestive) heart failure: Status: Acute (2) Atrial fibrillation with RVR: Status: Acute Plan Pt is an 78-year-old female with a PMH significant for?HFpEF, COPD on home O2, HTN, acute on chronic respiratory failure with hypercapnia, WOJCIECH non-compliant with CPAP, ephysema, cor pulmonale, cholecystitis, macular degeneration, and depression who presents to the ED with?worsening shortness of breath and fatigue for the past week. Pt will be admitted to the hospital for treatment further evaluation of new onset AFib with RVR and acute on chronic see HFpEF exacerbation. New onset AFib with RVR EKG showed AFib with RVR of 133 Pt given diltiazem IV x 3 doses in ED, then placed on diltiazem drip Continue drip until rate controlled Echocardiogram Cardiology consult Monitor on telemetry Acute on chronic HFpEF exacerbation Pt with increased SOB, elevated BNP, pleural effusion, bilateral pitting edema Furosemide 40 mg IV b.i.d. Cardiology consult Follow lytes, mg, I/O Daily weights, low-salt diet Monitor on telemetry Elevated troponin Initial troponin 17.4 Patient asymptomatic, EKG negative for ischemic changes Check repeat troponin Monitor on telemetry WOJCIECH Pt has not been compliant with CPAP at night Will order CPAP at bedtime COPD Not in acute exacerbation Continue home inhalers GERD Continue omeprazole Obesity class 3 Weight loss encouraged Full Code Attending:?Dr. Almanza DVT Prophylaxis: Lovenox Pt will require a hospitalization of at least two nights for treatment of?new onset AFib with RVR in the setting of acute on chronic HFpEF exacerbation. Time Spent With Patient Time: Total time managing care of this patient today ____ minutes. Quality Stroke Does the patient have a stroke diagnosis?: No VTE Prior VTE?: No VTE Risk Level:: Medical - moderate - high VTE Device Contraindication: Treatment Not Indicated VTE Drug Contraindication: N/A - Med Ordered
--- NOTE | 2023-05-18 22:16 | PHA.MEDREC ---
Pharmacy Consult ? Medication Reconciliation Pharmacy has completed the medication reconciliation. Pt and daughter were able to confirm medication list obtained from claim history/medical record.
--- NOTE | 2023-05-18 22:17 | PC.NURSE ---
Started titration of cardizem to 20, HR corrected to < 120, reduced back to 15.
[2023-05-18] MEDS: Enoxaparin Sodium 40 MG/0.4 ML SYRINGE SUBCUT (22:19)
[2023-05-18] MEDS: Furosemide 40 MG/4 ML VIAL IVPUSH (22:19)
[2023-05-18 22:39] LABS: Thyroid Stimulating Hormone 1.68 uIU/mL (0.32-4.0)
--- NOTE | 2023-05-18 23:04 | MHC.CM.PN ---
IMM 05/18. A&O x3. Lives with daughters. Has nebulizer, O2 at 4L and walker. Uses [employer] for home oxygen. Has [facility] for [facility] and PT. Has had 3 visits. Services with [facility]. HCP on file. HCP/daughter Bethany Millan ([phone]). [employer] x2. Daughters are [employer] for patient. Currently have 7 hours. Were re-evaluated for 32 hours. Pt refuses STR. States will discharge to home with existing [facility]. Referral placed in [facility]. Family will transport home. Contact card given. CM will follow for discharge planning.
[2023-05-19] VITALS (9 sets, daily range): BP systolic 100–134; BP diastolic 52–89; PULSE 75–108; RESP 18–22; TEMP 35.9–36.9; O2SAT 90–98; BMI 42.7
[2023-05-19] MEDS: Metoprolol Tartrate 12.5 MG HALFTAB PO ×2 (00:17→08:07)
[2023-05-19] MEDS: guaiFENesin LA 600 MG TAB.ER.12H PO ×3 (00:17→19:50)
[2023-05-19] MEDS: Atorvastatin Calcium 20 MG TABLET PO ×2 (00:17→19:50)
[2023-05-19] MEDS: 0.9 % Sodium Chloride Flush 3 ML SYRINGE IVFLUSH ×3 (00:29→19:51)
--- NOTE | 2023-05-19 00:33 | PC.NURSE ---
pt restless in bed, purewik in place for convenience for urination, when laying down exhibiting SOB, maintaining upright position for respiratory effort.
[2023-05-19] MEDS: dilTIAZem HCL 125 MG in 0.9 % Sodium Chloride 100 ML 15 MG IVCONT (03:06)
--- NOTE | 2023-05-19 03:23 | PC.NURSE ---
Pt has been intermittently restless throughout shift, and desaturating when laying down on NC. Changed to CPAP by respiratory and able to lay more flat without distress. Pt accidentally dislodged R AC IV, cannula intact. pt bedding changed, pt repositioned, no acute distress at this time.
--- NOTE | 2023-05-19 04:04 | MHC.EDTECH ---
This tech assumed care of pt at 0300am, Completed hourly rounds and vitals were taken. Patient has a purewick in place and is dry at this time. Call tello within reach
--- NOTE | 2023-05-19 04:51 | PC.NURSE ---
pt demonstrating mild desaturation when turning on side. Mask readjstedm respiratory called for adjustment to settings to compensate. Improvement noted.
[2023-05-19 05:38] LABS: MANUAL DIFF FLAG NO
[2023-05-19 05:43] LABS: Basophils Percent Auto 0.3 % (0-2); Eosinophils Absolute Auto 0.1 X10*3/uL (0.0-0.4); Eosinophils Percent Auto 0.8 % (0-4); Hematocrit 36.9 % (37.0-47.0); Hemoglobin 11.2 g/dl (12.0-16.0); Imm Gran Abs Auto 0.04 X10*3/uL (0.00-0.03); Imm Gran Pct Auto 0.4 % (0.0-0.4); Lymphocytes Absolute Auto 1.1 X10*3/uL (1.2-4.9); Lymphocytes Percent Auto 12.1 % (20-40); Mean Corpuscular HGB Conc 30.4 g/dl (31.0-35.0); Mean Corpuscular Hemoglobin 30.4 pg (27.0-33.0); Mean Corpuscular Volume 100.3 fL (80.0-98.0); Mean Platelet Volume 12.4 fL (9.4-12.3); Monocytes Percent Auto 10.9 % (2-11); Neutrophils Absolute Auto 6.8 x10*3/uL (2.0-8.3); Neutrophils Percent Auto 75.5 % (45-73); Red Blood Count 3.68 X10*6/uL (4.20-5.50); Red Cell Distribution Width 14.8 % (11.0-16.0)
[2023-05-19 05:46] LABS: Platelet Count 69 X10*3/uL (160-400)
[2023-05-19 06:02] LABS: Anion Gap 20 (12-20); Blood Urea Nitrogen 19 mg/dL (9-16); Calcium 9.2 mg/dL (8.4-10.2); Carbon Dioxide 31 mmol/L (22-29); Chloride 97 mmol/L (96-108); Creatinine Clr Calc Pharmacy 72.9; Estimated Glomerular Filt Rate > 60; Glucose Random 118 mg/dL (60-115); Potassium 4.1 mmol/L (3.3-5.1); Sodium 144 mmol/L (135-145)
--- NOTE | 2023-05-19 06:20 | PC.NURSE ---
Daughter called to check on pt. gave status update.
--- NOTE | 2023-05-19 06:20 | MHC.EDTECH ---
Hourly rounds completed, Patient had 700cc of urine output from purewick., patient was also incont. of a large amount of urine. Patient was cleaned and repositioned warm blankets were giving.
--- NOTE | 2023-05-19 07:00 | CA_ITS ---
Transthoracic Echocardiogram Patient (Last, First, Middle): Macy Millan M Gender: Female Date of : 1945 Age: 78 Procedure Date: 05/19/2023 Procedure Type: Transthoracic Echocardiogram Location: ER Height: 167.64 cm Weight: 119.75 kg BSA: 2.25 m2 Heart Rate: bpm BP: 119 / 56 mmHg Sample Finisher: Referring MD: Aliya Almanza MD Symptoms: afib with rvr Study Quality: Technically Difficult ECG Rhythm: Atrial Fibrillation Conclusions: - The left ventricular systolic function is normal. The visually estimated ejection fraction is between 55-60%. - The left atrium is severely dilated. - There is moderate calcification of the aortic valve. - There is moderate mitral annular calcification. Findings Procedure Information Contrast agent, definity, is being given per protocol without apparent complications. Left Ventricle Normal left ventricular cavity size. There is mildly increased left ventricular wall thickness. The left ventricular systolic function is normal. The visually estimated ejection fraction is between 55-60%. Diastolic function is indeterminate on the basis of available data. Even with contrast use, wall motion assessment difficult. Right Ventricle Mildly increased right ventricular cavity size. There is normal right ventricular systolic function. Atria The left atrium is severely dilated. The right atrium is moderately dilated. Aortic Valve There is moderate calcification of the aortic valve. There is no aortic valve stenosis. There is no aortic valve regurgitation. Mitral Valve There is moderate mitral annular calcification. There is no mitral valve regurgitation. There is no mitral valve stenosis. Pulmonic Valve The pulmonic valve is likely normal. Tricuspid Valve There is mild tricuspid valve regurgitation. There is no evidence of pulmonary hypertension. Great Vessels The asc aorta is normal in size. Venous The inferior vena cava is normal in size and collapses less than 50% with inspiration. Pericardium/Pleural There is a small loculated pericardial effusion overlying the left ventricle. Prior Study Comparison No significant change compared to prior study dated: 10/05/2022. Measurements 2D Linear Measurements IVSd: 1.20 0.6-0.9/0.6-1.0 cm LVIDd: 4.60 3.9-5.3/4.2-5.9 cm LVIDd Index: 2.04 2.4-3.2/2.2-3.1 cm/m2 LVIDs: 3.50 2.0-3.6 cm LVPWd: 1.20 0.7-1.1 cm Ao Root: 3.40 2.1-3.5 cm LA Diam: 5.90 2.7-3.8/3.0-4.0 cm LAIDs Index: 2.62 1.5-2.3 cm/m2 LV Mass: 255.49 67-162/88-224 g LV Mass Index: 113.55 43-95/49-115 g/m2 LVOT Diam: 2.00 3.0+(-)1.3 cm 2D Systolic Function EF 4C: 62.60 >55% EF 2C: 42.50 >55% EF BiP: 55.40 >55% Mitral Valve MV Pk E: 0.96 MV Decel Time: 160.00 E'Lateral: 11.10 E'Medial: 6.42 E/E' Med: 15.00 E/E' Lat: 8.70 PHT: 47.00 MVA PHT: 4.68 Decel Erath: 5.99 Aortic Valve AoV Pk Maynor: 1.73 AoV Mn Maynor: 1.10 AoV VTI: 0.34 AoV Pk Grad: 12.00 Aov Mn Grad: 6.00 CONRAD Cont.VTI: 1.83 LVOT LVOT Pk Maynor: 0.95 LVOT Mn Maynor: 0.60 LVOT VTI: 0.20 LVOT Pk Grad: 4.00 LVOT Mn Grad: 2.00 LVOT Diam: 2.00 LVOT Area: 3.14 Diastolic Function MV Pk E: 0.96 E'Medial: 6.42 E/E' Med: 15.00 E' Laterial: 11.10 E/E' Lat: 8.70 Right Ventricle TAPSE (mm): 19.00 Tricuspid Valve TR Pk Maynor: 2.65 TR Pk Grad: 28.00 RA Press: 3.00 Great Vessels Aorta Ao Root-2D: 3.40 2.0-3.7 cm Ao Asc: 3.20 2.1-3.4 cm Pulmonary Valve PV Pk Maynor: 1.01 Peak PV Grad: 4.00 Updated in Other Vendor System with Status of Final Liam Harris MD electronically signed on 05/19/2023 11:18:08 AM with status of Final
--- NOTE | 2023-05-19 07:24 | PC.NURSE ---
Resumed care of patient, she is currently awake, NC placed on pt at 4L so she can eat her breakfast. PT Hr currently 90's-low 100's, dilt drip remains at 15mg/hr. Pt denies chest pain, racing hearts, just reporting SOB, which she has had overnight at well. Awaiting bed placement at this time
[2023-05-19] MEDS: Omeprazole 20 MG CAPSULE.DR PO (08:06)
--- NOTE | 2023-05-19 08:49 | PC.NURSE ---
BP 100/54, MD at bedsided, cardizem drip lowered to 10mg/hr, metoprolol given, lasix held per verbal orders from MD. Pt in agreement with plan, HR remains 90-100 Pt currently getting bedside ECHO.
--- NOTE | 2023-05-19 09:49 | PM.CNCAR ---
History of Present Illness History of Present Illness Date of Service: 05/19/23 Chief complaint: palpitations Narrative: This is a cardiology consultation regarding atrial fibrillation rapid rate. Multiple medical comorbidities including heart failure with preserved ejection fraction, COPD on home oxygen, hypertension, chronic respiratory failure, WOJCIECH noncompliant with CPAP per history, Elda Stuart admitted for shortness of breath and fatigue. Long smoking history. Because of increasing shortness of breath, she has been admitted. In this context found to be in atrial fibrillation rapid ventricular rate. Hence Cardiology has been consulted. Based on prior cardiology consultation, there is description of chronic diastolic congestive heart failure and NSTEMI. Do not see any clear ischemic workup but she is not suitable for anything either. Currently, not having any clear-cut anginal-type symptoms. On supplemental oxygen. Review of Systems Review of Systems: Yes all other systems are reviewed and are negative Constitutional: Constitutional: Reports as per HPI and Reports no additional constitutional complaints Eyes: Eyes: Reports as per HPI and Denies no additional eye complaints ENT: Denies system reviewed and no additional complaints, except as documented and Reports as per HPI Cardiovascular: Cardiovascular: Reports as per HPI, Reports no additional cardiovascular complaints, Denies acrocyanosis, Denies cool extremities, Denies chest pain, Denies leg edema, Denies lightheadedness, Denies palpitations and Reports dyspnea Respiratory: Respiratory: Reports as per HPI, Denies no additional respiratory complaints and Reports dyspnea Gastrointestinal: Gastrointestinal: Reports as per HPI and Denies no additional gastrointestinal complaints Genitourinary: Genitourinary: Reports as per HPI Musculoskeletal: Musculoskeletal: Reports no additional musculoskeletal complaints and Reports as per HPI Integumentary/Breasts: Skin/Breast: Reports system reviewed and no additional complaints, except as docu Neurologic: Reports system reviewed and no additional complaints, except as documented and Reports as per HPI Psychiatric: Psychiatric: Reports no additional psychiatric complaints and Reports as per HPI Endocrine: Endocrine: Reports no additional endocrine complaints, Reports as per HPI and Denies palpitations Hematologic/Lymphatic: Hematologic/Lymphatic: Reports no additional hematologic/lymphatic complaints and Reports as per HPI Allergic/Immunologic: Allergic/Immunologic: Reports no additional allergic/immunologic complaints and Reports as per HPI [facility], [facility] Past Medical History Medical History Acute and chronic respiratory failure with hypercapnia Cholecystitis COPD (chronic obstructive pulmonary disease) Cor pulmonale, chronic Diastolic CHF with preserved left ventricular function, NYHA class 2 Dilated cbd, acquired Emphysema lung Gallstone Hyperkalemia Leukocytosis WOJCIECH (obstructive sleep apnea) Pancreatitis Supplemental oxygen dependent Family History Family History (Updated 05/19/23 @ 09:52 by Liam Harris MD) Father Myocardial infarction Social History Social History Household Members: Children Housing: House Do you presently have visiting nurse or other home services: No Unable to assess alcohol history related to: Unknown Alcohol intake: never Patient Tobacco Use Status: Former Tobacco user Tobacco use type: Cigarette Smoked in Last 30 Days: No Use of substances other than those prescribed or required for medical reasons: No Substance Use Type: Unknown Advance Directives: No Advance Directives Information Provided: No Nutrition Risks: No Nutritional Risk service: No Current occupational status: retired [employer] Allergies Allergy/AdvReac Type Severity Reaction Status Date / Time ceftriaxone [From Rocephin] Allergy Unknown Unknown Verified 10/05/22 01:45 vancomycin Allergy Unknown itch, Verified 10/05/22 01:45 rash, hives Active Medications: Current Medications Acetaminophen (Acetaminophen 325 Mg Tablet) 650 mg PO Q6H PRN PRN Reason: Pain, Mild (Pain Scale 1-3) Albuterol Sulfate (Albuterol Sulfate (0.083%) 2.5 Mg/3 Ml Vial.Neb) 2.5 mg INHALE Q4H PRN PRN Reason: Shortness Of Breath Albuterol Sulfate (Albuterol Sulfate 90 Mcg 8 Gm Inhaler) 2 puff INHALE RQID PRN PRN Reason: Shortness Of Breath Aspirin (Aspirin Enteric Coated 81 Mg Tablet.) 81 mg PO MOWEFR@2100 [facility] Atorvastatin Calcium (Atorvastatin Calcium 20 Mg Tablet) 20 mg PO BEDTIME [facility] Last Admin: 05/19/23 00:17 Dose: 20 mg Buspirone HCl (Buspirone Hcl 5 Mg Tablet) 5 mg PO BID PRN PRN Reason: Anxiety Enoxaparin Sodium (Enoxaparin Sodium 40 Mg/0.4 Ml Syringe) 40 mg SUBCUT Q24H [facility] Last Admin: 05/18/23 22:19 Dose: 40 mg Fluticasone/Vilanterol (Fluticasone/Vilanterol 100/25 Blst.W.Dev) 1 puff INHALE RDAILY [facility] Last Admin: 05/19/23 09:46 Dose: Not Given Furosemide (Furosemide 40 Mg/4 Ml Vial) 40 mg IVPUSH BID@0900,1800 [facility]; Protocol Last Admin: 05/19/23 08:07 Dose: Not Given Guaifenesin (Guaifenesin La 600 Mg Tab.Er.12h) 600 mg PO BID [facility] Last Admin: 05/19/23 08:07 Dose: 600 mg Diltiazem HCl 125 mg/ Sodium (Chloride) 125 mls @ 0 mls/hr IVCONT .Q0M [facility]; Protocol Last Titration: 05/19/23 08:06 Dose: 10 mg/hr, 10 mls/hr Melatonin (Melatonin 3 Mg Tablet) 6 mg PO BEDTIME PRN PRN Reason: Insomnia Melatonin (Melatonin 3 Mg Tablet) 6 mg PO BEDTIME PRN PRN Reason: Insomnia Metoprolol Tartrate (Metoprolol Tartrate 12.5 Mg Halftab) 12.5 mg PO BID [facility]; Protocol Last Admin: 05/19/23 08:07 Dose: 12.5 mg Omeprazole (Omeprazole 20 Mg Capsule.) 20 mg PO DAILY@0630 [facility] Last Admin: 05/19/23 08:06 Dose: 20 mg Ondansetron HCl (Ondansetron Hcl 4 Mg/2 Ml Vial) 4 mg IVPUSH Q8H PRN PRN Reason: Nausea and Vomiting Pharmacy Consult (Consult Rx Perform Med Rec) 1 each MISCELLANE ONCE PRN PRN Reason: Consult order Sodium Chloride (0.9 % Sodium Chloride Flush 3 Ml Syringe) 3 ml IVFLUSH QSHIFT [facility] Last Admin: 05/19/23 08:07 Dose: Not Given Tramadol HCl (Tramadol Hcl 50 Mg Tablet) 50 mg PO BID PRN PRN Reason: Pain, Moderate(Pain Scale 4-6) Home Medications Medication Instructions Recorded Confirmed Last Taken Type atorvastatin 20 mg tablet 20 mg PO BEDTIME 10/13/20 05/18/23 05/17/23 History omeprazole 20 mg capsule,delayed 20 mg PO DAILY@0630 10/13/20 05/18/23 05/18/23 History release albuterol sulfate 2.5 mg/3 mL 1 vial inhalation Q4H PRN 01/07/22 05/18/23 01/07/22 History (0.083 %) solution for nebulization Shortness Of Breath albuterol sulfate 90 mcg/actuation 2 puff inhalation QID PRN 01/07/22 05/18/23 01/07/22 History aerosol inhaler Shortness Of Breath docusate sodium 100 mg capsule 100 mg PO BID-TID PRN Constipation 01/07/22 05/18/23 05/17/23 History metoprolol tartrate 25 mg tablet 0.5 tab PO BID 01/07/22 05/18/23 05/18/23 History B-complex with vitamin C 1 tab PO DAILY@1500 10/04/22 05/18/23 05/17/23 History aspirin 81 mg tablet,delayed 81 mg PO MOWEFR@2100 10/04/22 05/18/23 05/17/23 History release buspirone 5 mg tablet 1 tab PO BID PRN Anxiety 10/04/22 05/18/23 05/18/23 History cholecalciferol (vitamin D3) 10 10 mcg PO BEDTIME 10/04/22 05/18/23 05/17/23 History mcg (400 unit) tablet (Vitamin D3) lutein 20 mg capsule 20 mg PO BEDTIME 10/04/22 05/18/23 05/17/23 History melatonin 5 mg tablet 5 mg PO BEDTIME PRN Insomnia 10/04/22 05/18/23 05/17/23 History tramadol 50 mg tablet 1 tab PO BID PRN Pain 10/04/22 05/18/23 05/18/23 History Physical Exam Vital Signs: Vital Signs: Last Vital Signs Temp 97.9 F 05/19/23 06:25 Pulse 94 05/19/23 07:58 Resp 18 05/19/23 07:58 BP 100/52 L 05/19/23 07:58 Pulse Ox 91 L 05/19/23 07:58 O2 Del Method Nasal Cannula 05/19/23 07:58 O2 Flow Rate 4 05/19/23 07:58 Oxygen Flow Rate 4 05/18/23 15:53 BMI result Body Mass Index 42.6 Const: General: comfortable, in distress, ill appearing and tired appearing Orientation/consciousness: patient oriented x3 HEENT: Other: Unremarkable Head: Yes normal to inspection Neck: Neck: Yes normal visual inspection Chest: Chest palpation & inspection: normal inspection of the chest Resp: Auscultation: rhonchi and wheezes Cardio: Palpation: normal PMI Heart sounds: S1 normal heart sound present, S2 normal heart sound present, no gallops, no murmurs and no rubs GI: Palpation (GI): Soft to palpation Back/Spine/Pelvis: Other: unremarkable Skin: General skin exam: no rashes or lesions noted Neuro: General: patient oriented x3 Extrem: General: Yes normal to inspection Psych: Mental Status: mental status grossly normal Objective Labs and Meds 05/19/23 05:16 05/19/23 05:16 Lab results: Laboratory Results - last 24 hr 05/18/23 05/18/23 05/18/23 16:41 16:43 16:43 WBC 8.5 RBC 3.92 L Hgb 12.0 Hct 39.7 MCV 101.3 H MCH 30.6 MCHC 30.2 L RDW 14.6 Plt Count TNP MPV 12.5 H Immature Gran % (Auto) 0.5 H Neut % (Auto) 75.4 H Lymph % (Auto) 14.8 L [place] % (Auto) 8.5 Eos % (Auto) 0.6 Baso % (Auto) 0.2 Lymph # (Auto) 1.3 [place] # (Auto) 0.7 Eos # (Auto) 0.1 Baso # (Auto) 0.0 Abs Immat Gran (auto) 0.04 H Absolute Neuts (auto) 6.4 Absolute Nucleated RBC 0.000 Nucleated RBC % (auto) 0.0 PT 13.0 INR 1.1 VBG pH VBG pCO2 VBG pO2 VBG HCO3 VBG O2 Saturation VBG Base Excess Sodium Potassium Chloride Carbon Dioxide Anion Gap BUN Creatinine Estim Creat Clear Calc Estimated GFR Random Glucose Lactic Acid 1.7 Calcium Total Bilirubin AST ALT Alkaline Phosphatase Troponin I High Sens B-Natriuretic Peptide Total Protein Albumin TSH Urine Color Urine Appearance Urine pH Ur Specific [place] Urine Protein Urine Glucose (UA) Urine Ketones Urine Blood Urine Nitrite Ur Leukocyte Esterase Urine RBC Urine WBC Ur Squamous Epith Cells Urine Bacteria Hyaline Casts 05/18/23 05/18/23 05/18/23 16:43 16:43 16:43 WBC RBC Hgb Hct MCV MCH MCHC RDW Plt Count MPV Immature Gran % (Auto) Neut % (Auto) Lymph % (Auto) [place] % (Auto) Eos % (Auto) Baso % (Auto) Lymph # (Auto) [place] # (Auto) Eos # (Auto) Baso # (Auto) Abs Immat Gran (auto) Absolute Neuts (auto) Absolute Nucleated RBC Nucleated RBC % (auto) PT INR VBG pH VBG pCO2 VBG pO2 VBG HCO3 VBG O2 Saturation VBG Base Excess Sodium 143 Potassium 4.2 Chloride 96 Carbon Dioxide 36 H Anion Gap 15 BUN 26 H Creatinine 0.89 Estim Creat Clear Calc 66.4 Estimated GFR > 60 Random Glucose 135 H Lactic Acid Calcium 9.6 Total Bilirubin 0.4 AST 27 ALT 25 Alkaline Phosphatase 90 Troponin I High Sens 17.4 H D B-Natriuretic Peptide 453 H Total Protein 6.8 Albumin 3.6 TSH Urine Color Urine Appearance Urine pH Ur Specific [place] Urine Protein Urine Glucose (UA) Urine Ketones Urine Blood Urine Nitrite Ur Leukocyte Esterase Urine RBC Urine WBC Ur Squamous Epith Cells Urine Bacteria Hyaline Casts 05/18/23 05/18/23 05/18/23 16:43 16:46 18:48 WBC RBC Hgb Hct MCV MCH MCHC RDW Plt Count MPV Immature Gran % (Auto) Neut % (Auto) Lymph % (Auto) [place] % (Auto) Eos % (Auto) Baso % (Auto) Lymph # (Auto) [place] # (Auto) Eos # (Auto) Baso # (Auto) Abs Immat Gran (auto) Absolute Neuts (auto) Absolute Nucleated RBC Nucleated RBC % (auto) PT INR VBG pH 7.37 VBG pCO2 71 VBG pO2 37 VBG HCO3 42 H VBG O2 Saturation 54.0 VBG Base Excess 13.8 Sodium Potassium Chloride Carbon Dioxide Anion Gap BUN Creatinine Estim Creat Clear Calc Estimated GFR Random Glucose Lactic Acid Calcium Total Bilirubin AST ALT Alkaline Phosphatase Troponin I High Sens B-Natriuretic Peptide Total Protein Albumin TSH 1.68 Urine Color Yellow Urine Appearance Cloudy Urine pH 5.5 Ur Specific [place] 1.015 Urine Protein Negative Urine Glucose (UA) Negative Urine Ketones Negative Urine Blood Negative Urine Nitrite Negative Ur Leukocyte Esterase Small (1+) H Urine RBC 0-2 Urine WBC 6-10 Ur Squamous Epith Cells >20 Urine Bacteria 4+ Hyaline Casts 6-10 05/18/23 05/19/23 05/19/23 23:11 05:16 05:16 WBC 9.0 RBC 3.68 L Hgb 11.2 L Hct 36.9 L MCV 100.3 H MCH 30.4 MCHC 30.4 L RDW 14.8 Plt Count 69 L D MPV 12.4 H Immature Gran % (Auto) 0.4 Neut % (Auto) 75.5 H Lymph % (Auto) 12.1 L [place] % (Auto) 10.9 Eos % (Auto) 0.8 Baso % (Auto) 0.3 Lymph # (Auto) 1.1 L [place] # (Auto) 1.0 Eos # (Auto) 0.1 Baso # (Auto) 0.0 Abs Immat Gran (auto) 0.04 H Absolute Neuts (auto) 6.8 Absolute Nucleated RBC 0.000 Nucleated RBC % (auto) 0.0 PT INR VBG pH VBG pCO2 VBG pO2 VBG HCO3 VBG O2 Saturation VBG Base Excess Sodium 144 Potassium 4.1 Chloride 97 Carbon Dioxide 31 H Anion Gap 20 BUN 19 H Creatinine 0.81 Estim Creat Clear Calc 72.9 Estimated GFR > 60 Random Glucose 118 H Lactic Acid Calcium 9.2 Total Bilirubin AST ALT Alkaline Phosphatase Troponin I High Sens 18.0 H B-Natriuretic Peptide Total Protein Albumin TSH Urine Color Urine Appearance Urine pH Ur Specific [place] Urine Protein Urine Glucose (UA) Urine Ketones Urine Blood Urine Nitrite Ur Leukocyte Esterase Urine RBC Urine WBC Ur Squamous Epith Cells Urine Bacteria Hyaline Casts ECG Interpretation: EKG with atrial fibrillation at a rate of 133/Min; low-voltage QRS; incomplete right bundle-branch block. Imaging Radiologist's impression: Impressions Chest X-Ray 05/18/23 14:09 IMPRESSION: Worsening pulmonary aeration with increased interstitial coarsening, bibasilar patchy opacities and small bilateral pleural effusions. Findings are nonspecific and could be associated with a combination of pulmonary edema and an atypical infection. Continued follow-up recommended to ensure appropriate resolution. Foot X-Ray 05/18/23 17:04 IMPRESSION: Moderate dorsal foot soft tissue swelling. There is no visible fracture seen. However given severe osteopenia fracture can be missed. Consider repeat left foot exam if 1-2 weeks. Mild degenerative changes intertarsal and tarsometatarsal joints. Venous Duplex 05/18/23 18:08 IMPRESSION: No DVT demonstrated in the left lower extremity. Chest CTA 05/18/23 20:06 IMPRESSION: 1. No pulmonary embolism. 2. Small right-sided pleural effusion. Bibasilar atelectasis. 3. Partially visualized calcified nodule in the right lobe of the thyroid gland. This has been previously evaluated with thyroid ultrasound. VTE: negative Assessment and Plan (1) Atrial fibrillation with RVR: Status: Acute (2) Acute on chronic diastolic (congestive) heart failure: Status: Acute (3) COPD (chronic obstructive pulmonary disease): Status: Acute Plan EKG suggestive of atrial fibrillation rapid ventricular rate. Creatinine levels of 0.89 and 0.81. High sensitivity troponins are 17.4, 18. Last year, it was as much as 3000. Cardiac BNP is 453. It has been much higher before as much as 1200. Last value from September was 155. Chest CT scan reports small right pleural effusion. Bibasilar atelectasis. No pulmonary embolism. Coronary calcification. Moderate thoracic atherosclerotic calcifications. Ultrasound left lower extremity with no DVT. Overall, atrial fibrillation rapid ventricular rate probably precipitating some heart failure. She also has significant pulmonary comorbidities which contribute to the above. Listed to be on a small dose of metoprolol at home. We can start on oral diltiazem and try to see if he can be in of the drip. Start digoxin loading. Empiric diuretics. Will review echocardiogram. She is not really a suitable candidate for rhythm control and most likely just rate control only. Anticoagulation. Discussed with Dr. Gonzalez. Time Spent With Patient Time: Total time managing care of this patient today ____ minutes. Procedures Date of Service Date of Service: 05/19/23
[2023-05-19] MEDS: dilTIAZem HCL 125 MG in 0.9 % Sodium Chloride 100 ML 10 MG IVCONT (11:35)
--- NOTE | 2023-05-19 12:58 | HO.PM.IMPN ---
Subjective Subjective Date of Service: 05/19/23 Interval History: f/u on afib with rvr, heart failure exacerbation HR is better on IV cardizem and shortness of breath is also better Physical Exam Vital Signs: Vital Signs: Last Vital Signs Temp 97 F 05/19/23 11:19 Pulse 100 05/19/23 11:19 Resp 18 05/19/23 11:19 BP 134/89 05/19/23 11:19 Pulse Ox 91 L 05/19/23 11:19 O2 Del Method Nasal Cannula 05/19/23 11:19 O2 Flow Rate 4 05/19/23 11:19 Oxygen Flow Rate 4 05/18/23 15:53 BMI result Body Mass Index 42.6 Const: Other: General: AO X 3, no acute distress Resp: CTA bilateral CVS: S1,S2,iregular iregular GI: +BS, NT, no distention Skin: No rash Neuro: motor grossly intact Psych: appropriate affect Objective Data Active Medications Acetaminophen (Acetaminophen 325 Mg Tablet) 650 mg PO Q6H PRN PRN Reason: Pain, Mild (Pain Scale 1-3) Albuterol Sulfate (Albuterol Sulfate (0.083%) 2.5 Mg/3 Ml Vial.Neb) 2.5 mg INHALE Q4H PRN PRN Reason: Shortness Of Breath Albuterol Sulfate (Albuterol Sulfate 90 Mcg 8 Gm Inhaler) 2 puff INHALE RQID PRN PRN Reason: Shortness Of Breath Aspirin (Aspirin Enteric Coated 81 Mg Tablet.) 81 mg PO MOWEFR@2100 [facility] [place] Atorvastatin Calcium (Atorvastatin Calcium 20 Mg Tablet) 20 mg PO BEDTIME [facility] [place] Last Admin: 05/19/23 00:17 Dose: 20 mg Documented By: JADA Buspirone HCl (Buspirone Hcl 5 Mg Tablet) 5 mg PO BID PRN PRN Reason: Anxiety Enoxaparin Sodium (Enoxaparin Sodium 40 Mg/0.4 Ml Syringe) 40 mg SUBCUT Q24H [facility] [place] Last Admin: 05/18/23 22:19 Dose: 40 mg Documented By: JADA Fluticasone/Vilanterol (Fluticasone/Vilanterol 100/25 Blst.W.Dev) 1 puff INHALE RDAILY [facility] [place] Last Admin: 05/19/23 09:46 Dose: Not Given Documented By: ОЛЕГ Non-Admin Reason: Med unavailable, Janki pharmcy aware Furosemide (Furosemide 40 Mg/4 Ml Vial) 40 mg IVPUSH BID@0900,1800 [facility] [place]; Protocol Last Admin: 05/19/23 08:07 Dose: Not Given Documented By: ANITA Non-Admin Reason: Physician Approved Guaifenesin (Guaifenesin La 600 Mg Tab.Er.12h) 600 mg PO BID [facility] [place] Last Admin: 05/19/23 08:07 Dose: 600 mg Documented By: ANITA Diltiazem HCl 125 mg/ Sodium (Chloride) 125 mls @ 0 mls/hr IVCONT .Q0M [facility] [place]; Protocol Last Admin: 05/19/23 11:35 Dose: 10 mg/hr, 10 mls/hr Documented By: ANITA Melatonin (Melatonin 3 Mg Tablet) 6 mg PO BEDTIME PRN PRN Reason: Insomnia Melatonin (Melatonin 3 Mg Tablet) 6 mg PO BEDTIME PRN PRN Reason: Insomnia Metoprolol Tartrate (Metoprolol Tartrate 12.5 Mg Halftab) 12.5 mg PO BID [facility] [place]; Protocol Last Admin: 05/19/23 08:07 Dose: 12.5 mg Documented By: ANITA Omeprazole (Omeprazole 20 Mg Capsule.Dr) 20 mg PO DAILY@0630 [facility] [place] Last Admin: 05/19/23 08:06 Dose: 20 mg Documented By: ANITA Ondansetron HCl (Ondansetron Hcl 4 Mg/2 Ml Vial) 4 mg IVPUSH Q8H PRN PRN Reason: Nausea and Vomiting Pharmacy Consult (Consult Rx Perform Med Rec) 1 each MISCELLANE ONCE PRN PRN Reason: Consult order Sodium Chloride (0.9 % Sodium Chloride Flush 3 Ml Syringe) 3 ml IVFLUSH QSHIFT [facility] [place] Last Admin: 05/19/23 08:07 Dose: Not Given Documented By: ANITA Non-Admin Reason: IV Running Tramadol HCl (Tramadol Hcl 50 Mg Tablet) 50 mg PO BID PRN PRN Reason: Pain, Moderate(Pain Scale 4-6) Labs 05/19/23 05:16 05/19/23 05:16 Labs: Laboratory Results - last 24 hr 05/18/23 05/18/23 05/18/23 16:41 16:43 16:43 MCV 101.3 H MCH 30.6 MCHC 30.2 L RDW 14.6 Plt Count TNP MPV 12.5 H Immature Gran % (Auto) 0.5 H Neut % (Auto) 75.4 H Lymph % (Auto) 14.8 L [place] % (Auto) 8.5 Eos % (Auto) 0.6 Baso % (Auto) 0.2 Lymph # (Auto) 1.3 [place] # (Auto) 0.7 Eos # (Auto) 0.1 Baso # (Auto) 0.0 Abs Immat Gran (auto) 0.04 H Absolute Neuts (auto) 6.4 Absolute Nucleated RBC 0.000 Nucleated RBC % (auto) 0.0 PT 13.0 INR 1.1 VBG pH VBG pCO2 VBG pO2 VBG HCO3 VBG O2 Saturation VBG Base Excess Anion Gap Estim Creat Clear Calc Estimated GFR Random Glucose Lactic Acid 1.7 Calcium Total Bilirubin AST ALT Alkaline Phosphatase B-Natriuretic Peptide Total Protein Albumin TSH Urine Color Urine Appearance Urine pH Ur Specific [place] Urine Protein Urine Glucose (UA) Urine Ketones Urine Blood Urine Nitrite Ur Leukocyte Esterase Urine RBC Urine WBC Ur Squamous Epith Cells Urine Bacteria Hyaline Casts 05/18/23 05/18/23 05/18/23 16:43 16:43 16:43 MCV MCH MCHC RDW Plt Count MPV Immature Gran % (Auto) Neut % (Auto) Lymph % (Auto) [place] % (Auto) Eos % (Auto) Baso % (Auto) Lymph # (Auto) [place] # (Auto) Eos # (Auto) Baso # (Auto) Abs Immat Gran (auto) Absolute Neuts (auto) Absolute Nucleated RBC Nucleated RBC % (auto) PT INR VBG pH VBG pCO2 VBG pO2 VBG HCO3 VBG O2 Saturation VBG Base Excess Anion Gap 15 Estim Creat Clear Calc 66.4 Estimated GFR > 60 Random Glucose 135 H Lactic Acid Calcium 9.6 Total Bilirubin 0.4 AST 27 ALT 25 Alkaline Phosphatase 90 B-Natriuretic Peptide 453 H Total Protein 6.8 Albumin 3.6 TSH 1.68 Urine Color Urine Appearance Urine pH Ur Specific [place] Urine Protein Urine Glucose (UA) Urine Ketones Urine Blood Urine Nitrite Ur Leukocyte Esterase Urine RBC Urine WBC Ur Squamous Epith Cells Urine Bacteria Hyaline Casts 05/18/23 05/18/23 05/19/23 16:46 18:48 05:16 MCV 100.3 H MCH 30.4 MCHC 30.4 L RDW 14.8 Plt Count 69 L D MPV 12.4 H Immature Gran % (Auto) 0.4 Neut % (Auto) 75.5 H Lymph % (Auto) 12.1 L [place] % (Auto) 10.9 Eos % (Auto) 0.8 Baso % (Auto) 0.3 Lymph # (Auto) 1.1 L [place] # (Auto) 1.0 Eos # (Auto) 0.1 Baso # (Auto) 0.0 Abs Immat Gran (auto) 0.04 H Absolute Neuts (auto) 6.8 Absolute Nucleated RBC 0.000 Nucleated RBC % (auto) 0.0 PT INR VBG pH 7.37 VBG pCO2 71 VBG pO2 37 VBG HCO3 42 H VBG O2 Saturation 54.0 VBG Base Excess 13.8 Anion Gap Estim Creat Clear Calc Estimated GFR Random Glucose Lactic Acid Calcium Total Bilirubin AST ALT Alkaline Phosphatase B-Natriuretic Peptide Total Protein Albumin TSH Urine Color Yellow Urine Appearance Cloudy Urine pH 5.5 Ur Specific [place] 1.015 Urine Protein Negative Urine Glucose (UA) Negative Urine Ketones Negative Urine Blood Negative Urine Nitrite Negative Ur Leukocyte Esterase Small (1+) H Urine RBC 0-2 Urine WBC 6-10 Ur Squamous Epith Cells >20 Urine Bacteria 4+ Hyaline Casts 6-10 05/19/23 05:16 MCV MCH MCHC RDW Plt Count MPV Immature Gran % (Auto) Neut % (Auto) Lymph % (Auto) [place] % (Auto) Eos % (Auto) Baso % (Auto) Lymph # (Auto) [place] # (Auto) Eos # (Auto) Baso # (Auto) Abs Immat Gran (auto) Absolute Neuts (auto) Absolute Nucleated RBC Nucleated RBC % (auto) PT INR VBG pH VBG pCO2 VBG pO2 VBG HCO3 VBG O2 Saturation VBG Base Excess Anion Gap 20 Estim Creat Clear Calc 72.9 Estimated GFR > 60 Random Glucose 118 H Lactic Acid Calcium 9.2 Total Bilirubin AST ALT Alkaline Phosphatase B-Natriuretic Peptide Total Protein Albumin TSH Urine Color Urine Appearance Urine pH Ur Specific [place] Urine Protein Urine Glucose (UA) Urine Ketones Urine Blood Urine Nitrite Ur Leukocyte Esterase Urine RBC Urine WBC Ur Squamous Epith Cells Urine Bacteria Hyaline Casts Assessment and Plan (1) Atrial fibrillation with RVR: Status: Acute (2) Acute on chronic diastolic (congestive) heart failure: Status: Acute Plan Pt is an 78-year-old female with a PMH significant for?HFpEF, COPD on home O2, HTN, acute on chronic respiratory failure with hypercapnia, WOJCIECH non-compliant with CPAP, ephysema, cor pulmonale, cholecystitis, macular degeneration, and depression who presents to the ED with?worsening shortness of breath and fatigue for the past week.? Pt will be admitted to the hospital for treatment further evaluation of new onset AFib with RVR and acute on chronic see HFpEF exacerbation. New onset AFib with RVR, rate still high but better, titreate down IV cardizem, IV dig loading, metoprolol increase to q6, echo pending, cardiology input noted Acute on chronic HFpEF exacerbation--improving, continue IV Lasix, monitor i/o, weight, bmp Elevated troponin--d/t chf, afib, no further w/u WOJCIECH Pt has not been compliant with CPAP at night Will order CPAP at bedtime COPD Not in acute exacerbation Continue home inhalers GERD Continue omeprazole Obesity class 3 Weight loss encouraged Full Code Attending:?Dr. Almanza DVT Prophylaxis: Lovenox Inpt for treatment of?new onset AFib with RVR in the setting of acute on chronic HFpEF exacerbation. Time Spent With Patient Time Spent With Patient Time: Total time managing care of this patient today ____ minutes. Quality Stroke Does the patient have a stroke diagnosis?: No VTE Prior VTE?: No VTE Risk Level:: Medical - moderate - high VTE Device Contraindication: Treatment Not Indicated VTE Drug Contraindication: N/A - Med Ordered
[2023-05-19] MEDS: Digoxin 0.5 MG/2 ML AMPUL 0.125 MG IVPUSH ×2 (14:28→19:50)
--- NOTE | 2023-05-19 14:30 | PC.NURSE ---
loading dose of dig given, clarified with MD if he wanted dil drip to continue running PER MD he would like both to continue
--- NOTE | 2023-05-19 15:57 | PC.NURSE ---
RN to RN report given with [facility] pt to be brought up by transport
[2023-05-19] MEDS: Furosemide 40 MG/4 ML VIAL IVPUSH (17:44)
[2023-05-19] MEDS: Melatonin 3 MG TABLET 6 MG PO (19:50)
[2023-05-19] MEDS: Aspirin Enteric Coated 81 MG TABLET.DR PO (19:50)
[2023-05-19] MEDS: Enoxaparin Sodium 40 MG/0.4 ML SYRINGE SUBCUT (22:17)
[2023-05-20] VITALS (7 sets, daily range): BP systolic 112–145; BP diastolic 51–72; PULSE 84–147; RESP 18–20; TEMP 36.1–36.6; O2SAT 92–98
[2023-05-20] MEDS: Digoxin 0.5 MG/2 ML AMPUL 0.125 MG IVPUSH (01:09)
[2023-05-20] MEDS: dilTIAZem HCL 125 MG in 0.9 % Sodium Chloride 100 ML 10 MG IVCONT (01:11)
[2023-05-20] MEDS: Furosemide 20 MG/2 ML VIAL IVPUSH (03:31)
--- NOTE | 2023-05-20 03:35 | PC.NURSE ---
0300: Pt c/o having a harder time breathing . Pt placed in high fowlers and vitals obtained, stable. Lungs auscultated with crackles audible in bilateral bases. Pt has been compliant with cpap for the majority of the night though had recently taken it off and stated she needed a break and was placed on home 4L nc. Pt was educated on the importance of placing cpap back on to help with work of breathing. Pt agreeable and cpap replaced by RT with improvement in breathing. Covering Dr. Almanza notified and orders placed for 1x additional dose of 20mg lasix IVP, given. Will continue to monitor for effect. Patient resting in bed appearing comfortable and without distress at this time.
[2023-05-20] MEDS: Omeprazole 20 MG CAPSULE.DR PO (05:41)
[2023-05-20 06:48] LABS: Anion Gap 17 (12-20); Blood Urea Nitrogen 14 mg/dL (9-16); Calcium 9.3 mg/dL (8.4-10.2); Carbon Dioxide 34 mmol/L (22-29); Chloride 98 mmol/L (96-108); Creatinine Clr Calc Pharmacy 78.9; Estimated Glomerular Filt Rate > 60; Glucose Random 102 mg/dL (60-115); Potassium 3.9 mmol/L (3.3-5.1); Sodium 145 mmol/L (135-145)
[2023-05-20 06:52] LABS: B Type Natriuretic Peptide 359 pg/mL (<100)
[2023-05-20] MEDS: guaiFENesin LA 600 MG TAB.ER.12H PO ×2 (07:45→19:31)
[2023-05-20] MEDS: Metoprolol Tartrate 12.5 MG HALFTAB PO (07:46)
[2023-05-20] MEDS: Furosemide 40 MG/4 ML VIAL IVPUSH ×2 (07:46→18:05)
[2023-05-20] MEDS: busPIRone HCl 5 MG TABLET PO (07:46)
[2023-05-20] MEDS: 0.9 % Sodium Chloride Flush 3 ML SYRINGE IVFLUSH ×3 (07:47→19:32)
--- NOTE | 2023-05-20 11:43 | P.PNIM_ITS ---
Subjective Subjective Date of Service: 05/20/23 Interval History: f/u on afib with rvr, heart failure exacerbation HR is better and is still on IV cardizem and shortness of breath is also better Physical Exam Vital Signs: Vital Signs: Last Vital Signs Temp 97.3 F 05/20/23 07:45 Pulse 89 05/20/23 07:45 Resp 18 05/20/23 07:45 BP 140/64 H 05/20/23 07:45 Pulse Ox 92 05/20/23 07:45 O2 Del Method CPAP 05/20/23 07:45 O2 Flow Rate 2 05/19/23 19:05 Oxygen Flow Rate 4 05/18/23 15:53 BMI result Body Mass Index 42.7 Const: Other: General: AO X 3, no acute distress Resp: CTA bilateral CVS: S1,S2,iregular iregular GI: +BS, NT, no distention Skin: No rash Neuro: motor grossly intact Psych: appropriate affect Objective Data Active Medications Acetaminophen (Acetaminophen 325 Mg Tablet) 650 mg PO Q6H PRN PRN Reason: Pain, Mild (Pain Scale 1-3) Albuterol Sulfate (Albuterol Sulfate (0.083%) 2.5 Mg/3 Ml Vial.Neb) 2.5 mg INHALE Q4H PRN PRN Reason: Shortness Of Breath Albuterol Sulfate (Albuterol Sulfate 90 Mcg 8 Gm Inhaler) 2 puff INHALE RQID PRN PRN Reason: Shortness Of Breath Aspirin (Aspirin Enteric Coated 81 Mg Tablet.) 81 mg PO MOWEFR@2100 [facility] Last Admin: 05/19/23 19:50 Dose: 81 mg Documented By: DONNA Atorvastatin Calcium (Atorvastatin Calcium 20 Mg Tablet) 20 mg PO BEDTIME [facility] Last Admin: 05/19/23 19:50 Dose: 20 mg Documented By: DONNA Buspirone HCl (Buspirone Hcl 5 Mg Tablet) 5 mg PO BID PRN PRN Reason: Anxiety Last Admin: 05/20/23 07:46 Dose: 5 mg Documented By: BRITTANY Enoxaparin Sodium (Enoxaparin Sodium 40 Mg/0.4 Ml Syringe) 40 mg SUBCUT Q24H [facility] Last Admin: 05/19/23 22:17 Dose: 40 mg Documented By: DONNA Fluticasone/Vilanterol (Fluticasone/Vilanterol 100/25 Blst.W.Dev) 1 puff INHALE RDAILY [facility] Last Admin: 05/20/23 07:27 Dose: Not Given Documented By: CUATE Non-Admin Reason: Med Not Available Furosemide (Furosemide 40 Mg/4 Ml Vial) 40 mg IVPUSH BID@0900,1800 [facility]; Protocol Last Admin: 05/20/23 07:46 Dose: 40 mg Documented By: BRITTANY Guaifenesin (Guaifenesin La 600 Mg Tab.Er.12h) 600 mg PO BID [facility] Last Admin: 05/20/23 07:45 Dose: 600 mg Documented By: BRITTANY Diltiazem HCl 125 mg/ Sodium (Chloride) 125 mls @ 0 mls/hr IVCONT .Q0M [facility]; Protocol Last Titration: 05/20/23 09:56 Dose: 0 mg/hr, 0 mls/hr Documented By: BRITTANY Melatonin (Melatonin 3 Mg Tablet) 6 mg PO BEDTIME PRN PRN Reason: Insomnia Last Admin: 05/19/23 19:50 Dose: 6 mg Documented By: DONNA Melatonin (Melatonin 3 Mg Tablet) 6 mg PO BEDTIME PRN PRN Reason: Insomnia Metoprolol Tartrate (Metoprolol Tartrate 12.5 Mg Halftab) 12.5 mg PO BID [facility]; Protocol Last Admin: 05/20/23 07:46 Dose: 12.5 mg Documented By: BIRTTANY Omeprazole (Omeprazole 20 Mg Capsule.) 20 mg PO DAILY@0630 [facility] Last Admin: 05/20/23 05:41 Dose: 20 mg Documented By: DONNA Ondansetron HCl (Ondansetron Hcl 4 Mg/2 Ml Vial) 4 mg IVPUSH Q8H PRN PRN Reason: Nausea and Vomiting Pharmacy Consult (Consult Rx Perform Med Rec) 1 each MISCELLANE ONCE PRN PRN Reason: Consult order Sodium Chloride (0.9 % Sodium Chloride Flush 3 Ml Syringe) 3 ml IVFLUSH QSHIFT [facility] Last Admin: 05/20/23 07:47 Dose: 3 ml Documented By: BRITTANY Tramadol HCl (Tramadol Hcl 50 Mg Tablet) 50 mg PO BID PRN PRN Reason: Pain, Moderate(Pain Scale 4-6) Labs 05/19/23 05:16 05/20/23 06:17 Labs: Laboratory Results - last 24 hr 05/20/23 05/20/23 06:17 06:17 Anion Gap 17 Estim Creat Clear Calc 78.9 Estimated GFR > 60 Random Glucose 102 Calcium 9.3 B-Natriuretic Peptide 359 H Microbiology Microbiology Results: Microbiology 05/18/23 17:18 Blood Culture - Preliminary Blood - Venous No growth after 24 hours. 05/18/23 16:41 Blood Culture - Preliminary Blood - Venous No growth after 24 hours. 05/18/23 Unknown Urine Culture - Preliminary Urine clean catch - Urine lucio top Culture too young to evaluate. Assessment and Plan (1) Atrial fibrillation with RVR: Status: Acute (2) Acute on chronic diastolic (congestive) heart failure: Status: Acute Plan Pt is an 78-year-old female with a PMH significant for?HFpEF, COPD on home O2, HTN, acute on chronic respiratory failure with hypercapnia, WOJCIECH non-compliant with CPAP, ephysema, cor pulmonale, cholecystitis, macular degeneration, and depression who presents to the ED with?worsening shortness of breath and fatigue for the past week.? Pt will be admitted to the hospital for treatment further evaluation of new onset AFib with RVR and acute on chronic see HFpEF exacerbatio n. New onset AFib with RVR, rate improving, titreate down IV cardizem, IV dig load 05/19, metoprolol increase to 25 bid, digoxin 0.125 mg dailyecho estimated ejection fraction is between 55-60%, cardiology input noted Acute on chronic HFpEF exacerbation--improving, continue IV Lasix, monitor i/o, weight, bmp Elevated troponin--d/t chf, afib, no further w/u WOJCIECH Pt has not been compliant with CPAP at night Will order CPAP at bedtime COPD Not in acute exacerbation Continue home inhalers GERD Continue omeprazole Obesity class 3 Weight loss encouraged Full Code DVT Prophylaxis: Lovenox Inpt for treatment of?new onset AFib with RVR in the setting of acute on chronic HFpEF exacerbation. Time Spent With Patient Time Spent With Patient Time: Total time managing care of this patient today ____ minutes. Quality Stroke Does the patient have a stroke diagnosis?: No VTE Prior VTE?: No VTE Risk Level:: Medical - moderate - high VTE Device Contraindication: Treatment Not Indicated VTE Drug Contraindication: N/A - Med Ordered
[2023-05-20] MEDS: Digoxin 0.125 MG TABLET PO (13:29)
--- NOTE | 2023-05-20 13:41 | P.PNCA_ITS ---
Subjective Subjective Date of Service: 05/20/23 Interval history: She states she is weak and tired. Breathing is just about the same. Was on Cardizem but it has been held for the last few hours. Review of Systems Review of Systems Yes all other systems are reviewed and are negative Constitutional: Reports as per HPI and Reports no additional constitutional complaints Eyes: Reports as per HPI and Denies no additional eye complaints Denies system reviewed and no additional complaints, except as documented and Reports as per HPI Cardiovascular: Reports as per HPI, Reports no additional cardiovascular complaints, Denies acrocyanosis, Denies cool extremities, Denies chest pain, Denies leg edema, Denies lightheadedness, Denies palpitations and Reports dyspnea Respiratory: Reports as per HPI, Denies no additional respiratory complaints and Reports dyspnea Gastrointestinal: Reports as per HPI and Denies no additional gastrointestinal complaints Musculoskeletal: Reports no additional musculoskeletal complaints and Reports as per HPI Skin/Breast: Reports system reviewed and no additional complaints, except as docu Reports system reviewed and no additional complaints, except as documented and Reports as per HPI Psychiatric: Reports no additional psychiatric complaints and Reports as per HPI Endocrine: Reports no additional endocrine complaints, Reports as per HPI and Denies palpitations Hematologic/Lymphatic: Reports no additional hematologic/lymphatic complaints and Reports as per HPI Allergic/Immunologic: Reports no additional allergic/immunologic complaints and Reports as per HPI Physical Exam Vital Signs: Last Vital Signs Temp 97 F 05/20/23 11:43 Pulse 84 05/20/23 11:43 Resp 18 05/20/23 11:43 BP 138/72 05/20/23 11:43 Pulse Ox 98 05/20/23 11:43 O2 Del Method CPAP 05/20/23 11:43 O2 Flow Rate 2 05/19/23 19:05 Oxygen Flow Rate 4 05/18/23 15:53 BMI result Body Mass Index 42.7 Const General: comfortable, in distress, ill appearing and tired appearing Orientation/consciousness: patient oriented x3 HEENT Other: Unremarkable Head: Yes normal to inspection Neck Neck: Yes normal visual inspection Chest Chest palpation & inspection: normal inspection of the chest Resp Auscultation: rhonchi, wheezes and diminished lung sounds Cardio Palpation: normal PMI Heart sounds: S1 normal heart sound present, S2 normal heart sound present, no gallops, no murmurs and no rubs GI Palpation (GI): Soft to palpation Back/Spine/Pelvis Other: unremarkable Skin General skin exam: no rashes or lesions noted Neuro General: patient oriented x3 Extrem General: Yes normal to inspection Psych Mental Status: mental status grossly normal Objective Labs and Meds 05/19/23 05:16 05/20/23 06:17 Lab results: Laboratory Results - last 24 hr 05/20/23 05/20/23 06:17 06:17 Sodium 145 Potassium 3.9 Chloride 98 Carbon Dioxide 34 H Anion Gap 17 BUN 14 Creatinine 0.75 Estim Creat Clear Calc 78.9 Estimated GFR > 60 Random Glucose 102 Calcium 9.3 B-Natriuretic Peptide 359 H Progress Note: A&P Assessment and plan (1) Atrial fibrillation with RVR: Status: Acute (2) Acute on chronic diastolic (congestive) heart failure: Status: Acute (3) COPD (chronic obstructive pulmonary disease): Status: Acute Plan Atrial fibrillation with rapid ventricular rate in the setting of multiple comorbidities, primarily pulmonary including significant COPD, oxygen dependence , WOJCIECH, obesity. Was on Cardizem drip since admission but that has been held for the last few hours. We can rather use oral Cardizem. If wheezing is an issue, hold off beta-blockers. Digoxin loading followed by maintenance. Empiric diuretics. Not suitable for rhythm control due to multiple comorb idities. Anticoagulation. Echocardiogram is today with LVEF of 55-60%. Severely dilated left atrium. Moderate aortic/mitral annular calcification. d/w . Time Spent With Patient Time: Total time managing care of this patient today 47 minutes. This includes time spent in review of chart, laboratory data, imaging studies, review of telemetry, counseling patient, discussion with hospitalist, RN, documentation, coordination of care. Progress Note: Quality Stroke Does the patient have a stroke diagnosis?: No Procedures Date of Service Date of Service: 05/20/23
[2023-05-20] MEDS: Rivaroxaban 20 MG TABLET PO (15:14)
[2023-05-20] MEDS: dilTIAZem HCL 125 MG in 0.9 % Sodium Chloride 100 ML IVCONT (18:22)
[2023-05-20] MEDS: Melatonin 3 MG TABLET 6 MG PO (19:30)
[2023-05-20] MEDS: Atorvastatin Calcium 20 MG TABLET PO (19:31)
[2023-05-20] MEDS: Metoprolol Tartrate 25 MG TABLET PO (19:31)
[2023-05-21] VITALS (7 sets, daily range): BP systolic 99–135; BP diastolic 50–86; PULSE 66–90; RESP 18–20; TEMP 36.4–36.9; O2SAT 91–96
[2023-05-21] MEDS: Omeprazole 20 MG CAPSULE.DR PO (05:52)
[2023-05-21] MEDS: Metoprolol Tartrate 25 MG TABLET PO ×2 (07:44→20:19)
[2023-05-21] MEDS: guaiFENesin LA 600 MG TAB.ER.12H PO ×2 (07:44→20:19)
[2023-05-21] MEDS: Rivaroxaban 20 MG TABLET PO (07:44)
[2023-05-21] MEDS: Furosemide 40 MG/4 ML VIAL IVPUSH ×2 (07:44→18:04)
[2023-05-21] MEDS: Digoxin 0.125 MG TABLET PO (07:44)
[2023-05-21] MEDS: 0.9 % Sodium Chloride Flush 3 ML SYRINGE IVFLUSH ×3 (07:45→20:19)
[2023-05-21 08:29] LABS: Anion Gap 17 (12-20); Blood Urea Nitrogen 10 mg/dL (9-16); Calcium 9.2 mg/dL (8.4-10.2); Carbon Dioxide 34 mmol/L (22-29); Chloride 98 mmol/L (96-108); Creatinine Clr Calc Pharmacy 81.1; Estimated Glomerular Filt Rate > 60; Glucose Random 113 mg/dL (60-115); Potassium 3.8 mmol/L (3.3-5.1); Sodium 145 mmol/L (135-145)
--- NOTE | 2023-05-21 10:34 | HO.PM.IMPN ---
Subjective Subjective Date of Service: 05/21/23 Interval History: f/u on afib with rvr, heart failure exacerbation HR is controlled, no SBOB, Physical Exam Vital Signs: Vital Signs: Last Vital Signs Temp 97.5 F 05/21/23 07:38 Pulse 85 05/21/23 07:38 Resp 18 05/21/23 07:38 BP 134/65 05/21/23 07:38 Pulse Ox 96 05/21/23 07:38 O2 Del Method Nasal Cannula 05/21/23 07:38 O2 Flow Rate 4 05/21/23 07:38 Oxygen Flow Rate 4 05/18/23 15:53 BMI result Body Mass Index 42.7 Const: Other: General: AO X 3, no acute distress Resp: CTA bilateral CVS: S1,S2,iregular iregular GI: +BS, NT, no distention Skin: No rash Neuro: motor grossly intact Psych: appropriate affect Objective Data Active Medications Acetaminophen (Acetaminophen 325 Mg Tablet) 650 mg PO Q6H PRN PRN Reason: Pain, Mild (Pain Scale 1-3) Albuterol Sulfate (Albuterol Sulfate (0.083%) 2.5 Mg/3 Ml Vial.Neb) 2.5 mg INHALE Q4H PRN PRN Reason: Shortness Of Breath Albuterol Sulfate (Albuterol Sulfate 90 Mcg 8 Gm Inhaler) 2 puff INHALE RQID PRN PRN Reason: Shortness Of Breath Aspirin (Aspirin Enteric Coated 81 Mg Tablet.) 81 mg PO MOWEFR@2100 [facility] Last Admin: 05/19/23 19:50 Dose: 81 mg Documented By: DONNA Atorvastatin Calcium (Atorvastatin Calcium 20 Mg Tablet) 20 mg PO BEDTIME [facility] Last Admin: 05/20/23 19:31 Dose: 20 mg Documented By: DONNA Buspirone HCl (Buspirone Hcl 5 Mg Tablet) 5 mg PO BID PRN PRN Reason: Anxiety Last Admin: 05/20/23 07:46 Dose: 5 mg Documented By: BRITTANY Digoxin (Digoxin 0.125 Mg Tablet) 0.125 mg PO DAILY [facility] Last Admin: 05/21/23 07:44 Dose: 0.125 mg Documented By: AMILCAR Furosemide (Furosemide 40 Mg/4 Ml Vial) 40 mg IVPUSH BID@0900,1800 [facility]; Protocol Last Admin: 05/21/23 07:44 Dose: 40 mg Documented By: AMILCAR Guaifenesin (Guaifenesin La 600 Mg Tab.Er.12h) 600 mg PO BID [facility] Last Admin: 05/21/23 07:44 Dose: 600 mg Documented By: AMILCAR Diltiazem HCl 125 mg/ Sodium (Chloride) 125 mls @ 0 mls/hr IVCONT .Q0M [facility]; Protocol Last Titration: 05/21/23 00:35 Dose: 0 mg/hr, 0 mls/hr Documented By: DONNA Melatonin (Melatonin 3 Mg Tablet) 6 mg PO BEDTIME PRN PRN Reason: Insomnia Last Admin: 05/20/23 19:30 Dose: 6 mg Documented By: DONNA Melatonin (Melatonin 3 Mg Tablet) 6 mg PO BEDTIME PRN PRN Reason: Insomnia Metoprolol Tartrate (Metoprolol Tartrate 25 Mg Tablet) 25 mg PO BID [facility]; Protocol Last Admin: 05/21/23 07:44 Dose: 25 mg Documented By: AMILCAR Omeprazole (Omeprazole 20 Mg Capsule.) 20 mg PO DAILY@0630 [facility] Last Admin: 05/21/23 05:52 Dose: 20 mg Documented By: DONNA Ondansetron HCl (Ondansetron Hcl 4 Mg/2 Ml Vial) 4 mg IVPUSH Q8H PRN PRN Reason: Nausea and Vomiting Pharmacy Consult (Consult Rx Perform Med Rec) 1 each MISCELLANE ONCE PRN PRN Reason: Consult order Rivaroxaban (Rivaroxaban 20 Mg Tablet) 20 mg PO DAILY [facility] Last Admin: 05/21/23 07:44 Dose: 20 mg Documented By: AMILCAR Sodium Chloride (0.9 % Sodium Chloride Flush 3 Ml Syringe) 3 ml IVFLUSH QSHIFT [facility] Last Admin: 05/21/23 07:45 Dose: 3 ml Documented By: AMILCAR Tramadol HCl (Tramadol Hcl 50 Mg Tablet) 50 mg PO BID PRN PRN Reason: Pain, Moderate(Pain Scale 4-6) Labs 05/19/23 05:16 05/21/23 08:09 Labs: Laboratory Results - last 24 hr 05/21/23 08:09 Anion Gap 17 Estim Creat Clear Calc 81.1 Estimated GFR > 60 Random Glucose 113 Calcium 9.2 Microbiology Microbiology Results: Microbiology 05/18/23 17:18 Blood Culture - Preliminary Blood - Venous No growth after 48 hours. 05/18/23 16:41 Blood Culture - Preliminary Blood - Venous No growth after 48 hours. 05/18/23 Unknown Urine Culture - Final Urine clean catch - Urine lucio top Assessment and Plan (1) Atrial fibrillation with RVR: Status: Acute (2) Acute on chronic diastolic (congestive) heart failure: Status: Acute Plan Pt is an 78-year-old female with a PMH significant for?HFpEF, COPD on home O2, HTN, acute on chronic respiratory failure with hypercapnia, WOJCIECH non-compliant with CPAP, ephysema, cor pulmonale, cholecystitis, macular degeneration, and depression who presents to the ED with?worsening shortness of breath and fatigue for the past week.? Pt will be admitted to the hospital for treatment further evaluation of new onset AFib with RVR and acute on chronic see HFpEF exacerbation. New onset AFib with RVR, rate improving, titreate down IV cardizem, IV dig load 05/19, metoprolol 25 bid, digoxin 0.125 mg daily, Echocardiogram with LVEF of 55-60%.? Severely dilated left atrium.? Moderate aortic/mitral annular calcification. No suitable for Anti arrhythmic due to multiple comorbidities, continue rate control and anticoagulation with Xarelto. Acute on chronic HFpEF exacerbation--improving, continue IV Lasix, monitor i/o, weight, bmp. Change to oral Lasix Elevated troponin--d/t chf, afib, no further w/u WOJCIECH Pt has not been compliant with CPAP at night CPAP at bedtime while here COPD Not in acute exacerbation Continue home inhalers GERD Continue omeprazole Obesity class 3 Weight loss encouraged Full Code DVT Prophylaxis: Lovenox Inpt for treatment of?new onset AFib with RVR in the setting of acute on chronic HFpEF exacerbation. Time Spent With Patient Time Spent With Patient Time: Total time managing care of this patient today ____ minutes. Quality Stroke Does the patient have a stroke diagnosis?: No VTE Prior VTE?: No VTE Risk Level:: Medical - moderate - high VTE Device Contraindication: Treatment Not Indicated VTE Drug Contraindication: N/A - Med Ordered
--- NOTE | 2023-05-21 13:04 | P.PNCA_ITS ---
Subjective Subjective Date of Service: 05/21/23 Interval history: Patient states that she is feeling okay. No new complaints. Shortness of breath is at baseline. Was on Cardizem drip but that has been stopped now. Does not have any overt palpitations. Review of Systems Review of Systems Yes all other systems are reviewed and are negative Constitutional: Reports as per HPI and Reports no additional constitutional complaints Eyes: Reports as per HPI and Denies no additional eye complaints Denies system reviewed and no additional complaints, except as documented and Reports as per HPI Cardiovascular: Reports as per HPI, Reports no additional cardiovascular complaints, Denies acrocyanosis, Denies cool extremities, Denies chest pain, Denies leg edema, Denies lightheadedness, Denies palpitations and Reports dyspnea Respiratory: Reports as per HPI, Denies no additional respiratory complaints and Reports dyspnea Gastrointestinal: Reports as per HPI and Denies no additional gastrointestinal complaints Musculoskeletal: Reports no additional musculoskeletal complaints and Reports as per HPI Skin/Breast: Reports system reviewed and no additional complaints, except as docu Reports system reviewed and no additional complaints, except as documented and Reports as per HPI Psychiatric: Reports no additional psychiatric complaints and Reports as per HPI Endocrine: Reports no additional endocrine complaints, Reports as per HPI and Denies palpitations Hematologic/Lymphatic: Reports no additional hematologic/lymphatic complaints and Reports as per HPI Allergic/Immunologic: Reports no additional allergic/immunologic complaints and Reports as per HPI Physical Exam Vital Signs: Last Vital Signs Temp 97.6 F 05/21/23 11:58 Pulse 88 05/21/23 11:58 Resp 18 05/21/23 11:58 BP 121/66 05/21/23 11:58 Pulse Ox 96 05/21/23 11:58 O2 Del Method Nasal Cannula 05/21/23 11:58 O2 Flow Rate 4 05/21/23 11:58 Oxygen Flow Rate 4 05/18/23 15:53 BMI result Body Mass Index 42.7 Const General: comfortable, in distress, ill appearing and tired appearing Orientation/consciousness: patient oriented x3 HEENT Other: Unremarkable Head: Yes normal to inspection Neck Neck: Yes normal visual inspection Chest Chest palpation & inspection: normal inspection of the chest Resp Auscultation: rhonchi, wheezes and diminished lung sounds Cardio Palpation: normal PMI Heart sounds: S1 normal heart sound present, S2 normal heart sound present, no gallops, no murmurs and no rubs GI Palpation (GI): Soft to palpation Back/Spine/Pelvis Other: unremarkable Skin General skin exam: no rashes or lesions noted Neuro General: patient oriented x3 Extrem General: Yes normal to inspection Psych Mental Status: mental status grossly normal Objective Labs and Meds 05/19/23 05:16 05/21/23 08:09 Lab results: Laboratory Results - last 24 hr 05/21/23 08:09 Sodium 145 Potassium 3.8 Chloride 98 Carbon Dioxide 34 H Anion Gap 17 BUN 10 Creatinine 0.73 Estim Creat Clear Calc 81.1 Estimated GFR > 60 Random Glucose 113 Calcium 9.2 Progress Note: A&P Assessment and plan (1) Atrial fibrillation with RVR: Status: Acute (2) Acute on chronic diastolic (congestive) heart failure: Status: Acute (3) Thrombocytopenia: Status: Acute (4) COPD (chronic obstructive pulmonary disease): Status: Acute Plan Atrial fibrillation with rapid ventricular rate in the setting of multiple comorbidities, primarily pulmonary including significant COPD, oxygen dependence, WOJCIECH, obesity. She was on diltiazem drip but that is now on hold. On oral beta- blockers/digoxin. If wheezing an issue, switch to Diltiazem CD 120mg daily. She has history of itching from Eliquis that was previously used for pulmonary embolism but now on Xarelto. However, there is a decrease in platelet count and not clear what the reason is. Discussed with Dr. Gonzalez. We can hold Xarelto tonight. Recheck blood counts and then we can decide. May need to involve Hematology. Discussed with daughter at the bedside. Overall, she is frail with many comorbidities. Guarded prognosis. Progress Note: Quality Stroke Does the patient have a stroke diagnosis?: No Procedures Date of Service Date of Service: 05/21/23
[2023-05-21] MEDS: busPIRone HCl 5 MG TABLET PO (20:19)
[2023-05-21] MEDS: Atorvastatin Calcium 20 MG TABLET PO (20:19)
[2023-05-22] VITALS (7 sets, daily range): BP systolic 92–133; BP diastolic 55–88; PULSE 78–93; RESP 18–20; TEMP 36.3–37.1; O2SAT 93–97
[2023-05-22] MEDS: Omeprazole 20 MG CAPSULE.DR PO (06:14)
[2023-05-22] MEDS: Digoxin 0.125 MG TABLET PO (08:51)
[2023-05-22] MEDS: guaiFENesin LA 600 MG TAB.ER.12H PO ×2 (08:51→20:12)
[2023-05-22] MEDS: Metoprolol Tartrate 25 MG TABLET PO ×2 (08:52→20:12)
[2023-05-22] MEDS: Furosemide 40 MG/4 ML VIAL IVPUSH (08:53)
[2023-05-22] MEDS: 0.9 % Sodium Chloride Flush 3 ML SYRINGE IVFLUSH ×3 (08:53→20:13)
[2023-05-22] MEDS: dilTIAZem HCL 125 MG in 0.9 % Sodium Chloride 100 ML 10 MG IVCONT (09:04)
[2023-05-22 09:16] LABS: Hematocrit 43.4 % (37.0-47.0); Hemoglobin 12.9 g/dl (12.0-16.0); Mean Corpuscular HGB Conc 29.7 g/dl (31.0-35.0); Mean Corpuscular Hemoglobin 30.9 pg (27.0-33.0); Mean Corpuscular Volume 104.1 fL (80.0-98.0); Mean Platelet Volume 12.1 fL (9.4-12.3); Platelet Count 128 X10*3/uL (160-400); Red Blood Count 4.17 X10*6/uL (4.20-5.50); Red Cell Distribution Width 14.9 % (11.0-16.0); White Blood Count 8.3 X10*3/uL (4.8-10.8)
--- NOTE | 2023-05-22 09:51 | HO.PM.IMPN ---
Subjective Subjective Date of Service: 05/22/23 Interval History: Patient was doing well, no sob, no chest pain but went back into AFIB with RVR this moring, HR up to 150, restarted cardizem drip Physical Exam Vital Signs: Vital Signs: Last Vital Signs Temp 97.3 F 05/22/23 07:24 Pulse 93 05/22/23 07:24 Resp 20 05/22/23 07:24 BP 133/88 05/22/23 07:24 Pulse Ox 96 05/22/23 07:24 O2 Del Method Nasal Cannula 05/22/23 07:24 O2 Flow Rate 4 05/22/23 07:24 Oxygen Flow Rate 4 05/18/23 15:53 BMI result Body Mass Index 42.7 Const: Other: General: AO X 3, no acute distress Resp: CTA bilateral CVS: S1,S2, iregular iregular GI: +BS, NT, no distention Skin: No rash Neuro: motor grossly intact Psych: appropriate affect Objective Data Active Medications Acetaminophen (Acetaminophen 325 Mg Tablet) 650 mg PO Q6H PRN PRN Reason: Pain, Mild (Pain Scale 1-3) Albuterol Sulfate (Albuterol Sulfate (0.083%) 2.5 Mg/3 Ml Vial.Neb) 2.5 mg INHALE Q4H PRN PRN Reason: Shortness Of Breath Albuterol Sulfate (Albuterol Sulfate 90 Mcg 8 Gm Inhaler) 2 puff INHALE RQID PRN PRN Reason: Shortness Of Breath Aspirin (Aspirin Enteric Coated 81 Mg Tablet.) 81 mg PO MOWEFR@2100 [facility] Last Admin: 05/19/23 19:50 Dose: 81 mg Documented By: DONNA Atorvastatin Calcium (Atorvastatin Calcium 20 Mg Tablet) 20 mg PO BEDTIME [facility] Last Admin: 05/21/23 20:19 Dose: 20 mg Documented By: ERIN Buspirone HCl (Buspirone Hcl 5 Mg Tablet) 5 mg PO BID PRN PRN Reason: Anxiety Last Admin: 05/21/23 20:19 Dose: 5 mg Documented By: ERIN Digoxin (Digoxin 0.125 Mg Tablet) 0.125 mg PO DAILY [facility] Last Admin: 05/22/23 08:51 Dose: 0.125 mg Documented By: ANNEL Furosemide (Furosemide 40 Mg/4 Ml Vial) 40 mg IVPUSH BID@0900,1800 [facility]; Protocol Last Admin: 05/22/23 08:53 Dose: 40 mg Documented By: ANNEL Guaifenesin (Guaifenesin La 600 Mg Tab.Er.12h) 600 mg PO BID [facility] Last Admin: 05/22/23 08:51 Dose: 600 mg Documented By: ANNEL Diltiazem HCl 125 mg/ Sodium (Chloride) 125 mls @ 0 mls/hr IVCONT .Q0M [facility]; Protocol Last Admin: 05/22/23 09:04 Dose: 10 mg/hr, 10 mls/hr Documented By: ANNEL Melatonin (Melatonin 3 Mg Tablet) 6 mg PO BEDTIME PRN PRN Reason: Insomnia Last Admin: 05/20/23 19:30 Dose: 6 mg Documented By: DONNA Melatonin (Melatonin 3 Mg Tablet) 6 mg PO BEDTIME PRN PRN Reason: Insomnia Metoprolol Tartrate (Metoprolol Tartrate 25 Mg Tablet) 25 mg PO BID [facility]; Protocol Last Admin: 05/22/23 08:52 Dose: 25 mg Documented By: ANNEL Omeprazole (Omeprazole 20 Mg Capsule.Dr) 20 mg PO DAILY@0630 [facility] Last Admin: 05/22/23 06:14 Dose: 20 mg Documented By: ERIN Ondansetron HCl (Ondansetron Hcl 4 Mg/2 Ml Vial) 4 mg IVPUSH Q8H PRN PRN Reason: Nausea and Vomiting Pharmacy Consult (Consult Rx Perform Med Rec) 1 each MISCELLANE ONCE PRN PRN Reason: Consult order Sodium Chloride (0.9 % Sodium Chloride Flush 3 Ml Syringe) 3 ml IVFLUSH QSHIFT [facility] Last Admin: 05/22/23 08:53 Dose: 3 ml Documented By: ANNEL Tramadol HCl (Tramadol Hcl 50 Mg Tablet) 50 mg PO BID PRN PRN Reason: Pain, Moderate(Pain Scale 4-6) Labs 05/22/23 08:37 05/21/23 08:09 Labs: Laboratory Results - last 24 hr 05/22/23 08:37 MCV 104.1 H MCH 30.9 MCHC 29.7 L RDW 14.9 Plt Count 128 L D MPV 12.1 Absolute Nucleated RBC 0.000 Nucleated RBC % (auto) 0.0 Assessment and Plan (1) Atrial fibrillation with RVR: Status: Acute (2) Acute on chronic diastolic (congestive) heart failure: Status: Acute Plan Pt is an 78-year-old female with a PMH significant for?HFpEF, COPD on home O2, HTN, acute on chronic respiratory failure with hypercapnia, WOJCIECH non-compliant with CPAP, ephysema, cor pulmonale, cholecystitis, macular degeneration, and depression who presents to the ED with?worsening shortness of breath and fatigue for the past week.? Pt will be admitted to the hospital for treatment further evaluation of new onset AFib with RVR and acute on chronic see HFpEF exacerbation. New onset AFib with RVR, rate improving, titreate down IV cardizem, IV dig load 05/19, metoprolol 25 bid, digoxin 0.125 mg daily, Echocardiogram with LVEF of 55-60%.? Severely dilated left atrium.? Moderate aortic/mitral annular calcification. No suitable for Anti arrhythmic due to multiple comorbidities, continue rate control and anticoagulation with Xarelto. restart cardizem drip this morning for RVR, cardiology to further assess Acute on chronic HFpEF exacerbation--improving, continue IV Lasix, monitor i/o, weight, bmp. Change to oral Lasix Elevated troponin--d/t chf, afib, no further w/u Thrombocytopenia--Plat back up low readings likely error WOJCIECH Pt has not been compliant with CPAP at night CPAP at bedtime while here COPD Not in acute exacerbation Continue home inhalers GERD Continue omeprazole Obesity class 3 Weight loss encouraged Full Code DVT Prophylaxis: Lovenox Inpt for treatment of?new onset AFib with RVR in the setting of acute on chronic HFpEF exacerbation. Pt eval Time Spent With Patient Time: Total time managing care of this patient today ____ minutes. Quality Stroke Does the patient have a stroke diagnosis?: No VTE Prior VTE?: No VTE Risk Level:: Medical - moderate - high VTE Device Contraindication: Treatment Not Indicated VTE Drug Contraindication: N/A - Med Ordered
--- NOTE | 2023-05-22 11:24 | P.PNCA_ITS ---
Subjective Subjective Date of Service: 05/22/23 Interval history: Seen examined at bedside. No palpitations. Telemetry has shown atrial fibrillation with fluctuating heart rates. Physical Exam Vital Signs: Last Vital Signs Temp 98.1 F 05/22/23 11:11 Pulse 89 05/22/23 11:11 Resp 20 05/22/23 11:11 BP 118/56 L 05/22/23 11:11 Pulse Ox 96 05/22/23 11:11 O2 Del Method Nasal Cannula 05/22/23 11:11 O2 Flow Rate 4 05/22/23 11:11 Oxygen Flow Rate 4 05/18/23 15:53 BMI result Body Mass Index 42.7 GENERAL APPEARANCE: in no acute distress, pleasant. NECK: no carotid bruit, no jugular venous distention. SKIN: no suspicious lesions, warm and dry. HEART: no murmurs, irregular rate and rhythm. LUNGS: clear to auscultation bilaterally. Diminished breath sounds bilaterally. ABDOMEN: soft, nontender. EXTREMITIES: Left foot and ankle edema. PERIPHERAL PULSES: equal. NEUROLOGIC: No gross deficits, AAO X 3 Objective Labs and Meds 05/22/23 08:37 05/21/23 08:09 Lab results: Laboratory Results - last 24 hr 05/22/23 08:37 WBC 8.3 RBC 4.17 L Hgb 12.9 Hct 43.4 MCV 104.1 H MCH 30.9 MCHC 29.7 L RDW 14.9 Plt Count 128 L D MPV 12.1 Absolute Nucleated RBC 0.000 Nucleated RBC % (auto) 0.0 Progress Note: A&P Assessment and plan (1) Thrombocytopenia: Status: Acute (2) Atrial fibrillation with RVR: Status: Acute Plan 78-year-old female who has background history of diastolic heart failure, COPD and is here with COPD exacerbation along with AFib with RVR. Still short of breath probably due to underlying COPD and obesity/WOJCIECH. Does not look clinically overloaded. Looks like she is back on the diltiazem drip. She is currently taking metoprolol 25 mg twice a day and digoxin 125 mcg daily. On the drip heart rates are in 80s to 90s. I think continue metoprolol 25 mg twice a day and add diltiazem p.o. 180 mg. I think we should stop the digoxin and if required we will use it every other day in the future. She has COPD exacerbation and may have some fast heart rate when she is getting nebs. Platelet counts are fluctuating. She has platelet clumping which is likely reason that her platelet counts appear to be low at times. I think she can continue Xarelto but if there is any concern please discuss with Hematology. Thank you for allowing me to participate in the care of your patient. Please f eel free to contact me if you have any questions. Time Spent With Patient Time: Total time managing care of this patient today ____ minutes. Progress Note: Quality Stroke Does the patient have a stroke diagnosis?: No Procedures Date of Service Date of Service: 05/22/23
--- NOTE | 2023-05-22 11:47 | MHC.CM.PN ---
Addendum entered by Mckenna Crystal RN 05/22/23 11:48: CLARIFICATION: ANTIC PT WILL DECLINE STR PT DID ON ADMIT, PT IS ACTIVE W/[facility] FOR SN/PT, CM WILL CONT TO FOLLOW D/C NEEDS. Original Note: EMR REVIEWED, PER HOSPITALIST PT REMAINS IN AFIB, PLAN FOR CARDIZEM DRIP, NO PLAN FOR D/C AT THIS TIME, PER PREVIOUS CM ANTIC PT MAY NEED PT EVAL FOR DISPO. CM WILL CONT TO FOLLOW D/C NEEDS.
[2023-05-22] MEDS: dilTIAZem HCL CD 180 MG CAP.ER.24H PO (12:12)
[2023-05-22] MEDS: Aspirin Enteric Coated 81 MG TABLET.DR PO (20:12)
[2023-05-22] MEDS: Atorvastatin Calcium 20 MG TABLET PO (20:12)
[2023-05-22] MEDS: Melatonin 3 MG TABLET 6 MG PO (20:12)
[2023-05-22] MEDS: busPIRone HCl 5 MG TABLET PO (20:12)
[2023-05-23] VITALS: BP 115/61; PULSE 88; RESP 20; TEMP 36.6; O2SAT 94
--- NOTE | 2023-05-23 02:49 | PC.NURSE ---
Addendum entered by Delilah Vargas RN 05/23/23 02:50: Noted to have small nasal bleed. Humidifier was provided with O2. Original Note: Pt wore CPAP from 2100 to midnight. Refused at get back to the mask.
[2023-05-23 03:09] VITALS: BP 108/67; PULSE 92; RESP 20; TEMP 36.4; O2SAT 94
[2023-05-23 04:01] VITALS: RESP 20
[2023-05-23] MEDS: Omeprazole 20 MG CAPSULE.DR PO (05:35)
[2023-05-23 07:12] VITALS: BP 134/57; PULSE 95; RESP 20; TEMP 36.3; O2SAT 91
[2023-05-23] MEDS: Digoxin 0.125 MG TABLET PO (09:04)
[2023-05-23] MEDS: 0.9 % Sodium Chloride Flush 3 ML SYRINGE IVFLUSH (09:04)
[2023-05-23] MEDS: Rivaroxaban 20 MG TABLET PO (09:04)
[2023-05-23] MEDS: Furosemide 40 MG TABLET PO (09:04)
[2023-05-23] MEDS: dilTIAZem HCL CD 180 MG CAP.ER.24H PO (09:04)
[2023-05-23] MEDS: guaiFENesin LA 600 MG TAB.ER.12H PO (09:04)
[2023-05-23] MEDS: Metoprolol Tartrate 25 MG TABLET PO (09:04)
--- NOTE | 2023-05-23 09:32 | HO.PM.IMPN ---
Subjective Subjective Date of Service: 05/23/23 Interval History: Doing better tday, HR is controlled, no other complaint Physical Exam Vital Signs: Vital Signs: Last Vital Signs Temp 97.3 F 05/23/23 07:12 Pulse 95 05/23/23 07:12 Resp 20 05/23/23 07:12 BP 134/57 L 05/23/23 07:12 Pulse Ox 91 L 05/23/23 07:12 O2 Del Method Nasal Cannula 05/23/23 07:12 O2 Flow Rate 4 05/23/23 07:12 Oxygen Flow Rate 4 05/18/23 15:53 BMI result Body Mass Index 42.7 Const: Other: General: AO X 3, no acute distress Resp: CTA bilateral CVS: S1,S2, iregular iregular GI: +BS, NT, no distention Skin: No rash Neuro: motor grossly intact Psych: appropriate affect Objective Data Active Medications Acetaminophen (Acetaminophen 325 Mg Tablet) 650 mg PO Q6H PRN PRN Reason: Pain, Mild (Pain Scale 1-3) Albuterol Sulfate (Albuterol Sulfate (0.083%) 2.5 Mg/3 Ml Vial.Neb) 2.5 mg INHALE Q4H PRN PRN Reason: Shortness Of Breath Albuterol Sulfate (Albuterol Sulfate 90 Mcg 8 Gm Inhaler) 2 puff INHALE RQID PRN PRN Reason: Shortness Of Breath Aspirin (Aspirin Enteric Coated 81 Mg Tablet.) 81 mg PO MOWEFR@2100 [facility] Last Admin: 05/22/23 20:12 Dose: 81 mg Documented By: REIN Atorvastatin Calcium (Atorvastatin Calcium 20 Mg Tablet) 20 mg PO BEDTIME [facility] Last Admin: 05/22/23 20:12 Dose: 20 mg Documented By: ERIN Buspirone HCl (Buspirone Hcl 5 Mg Tablet) 5 mg PO BID PRN PRN Reason: Anxiety Last Admin: 05/22/23 20:12 Dose: 5 mg Documented By: ERIN Digoxin (Digoxin 0.125 Mg Tablet) 0.125 mg PO DAILY [facility] Last Admin: 05/23/23 09:04 Dose: 0.125 mg Documented By: JADIELORRMadison Diltiazem HCl (Diltiazem Hcl Cd 180 Mg Cap.Er.24h) 180 mg PO DAILY [facility]; Protocol Last Admin: 05/23/23 09:04 Dose: 180 mg Documented By: ANNEL Furosemide (Furosemide 40 Mg Tablet) 40 mg PO DAILY [facility]; Protocol Last Admin: 05/23/23 09:04 Dose: 40 mg Documented By: ANNEL Guaifenesin (Guaifenesin La 600 Mg Tab.Er.12h) 600 mg PO BID [facility] Last Admin: 05/23/23 09:04 Dose: 600 mg Documented By: ANNEL Melatonin (Melatonin 3 Mg Tablet) 6 mg PO BEDTIME PRN PRN Reason: Insomnia Last Admin: 05/22/23 20:12 Dose: 6 mg Documented By: ERIN Melatonin (Melatonin 3 Mg Tablet) 6 mg PO BEDTIME PRN PRN Reason: Insomnia Metoprolol Tartrate (Metoprolol Tartrate 25 Mg Tablet) 25 mg PO BID [facility]; Protocol Last Admin: 05/23/23 09:04 Dose: 25 mg Documented By: ANNEL Omeprazole (Omeprazole 20 Mg Capsule.) 20 mg PO DAILY@0630 [facility] Last Admin: 05/23/23 05:35 Dose: 20 mg Documented By: ERIN Ondansetron HCl (Ondansetron Hcl 4 Mg/2 Ml Vial) 4 mg IVPUSH Q8H PRN PRN Reason: Nausea and Vomiting Pharmacy Consult (Consult Rx Perform Med Rec) 1 each MISCELLANE ONCE PRN PRN Reason: Consult order Rivaroxaban (Rivaroxaban 20 Mg Tablet) 20 mg PO DAILY [facility] Last Admin: 05/23/23 09:04 Dose: 20 mg Documented By: ANNEL Sodium Chloride (0.9 % Sodium Chloride Flush 3 Ml Syringe) 3 ml IVFLUSH QSHIFT [facility] Last Admin: 05/23/23 09:04 Dose: 3 ml Documented By: ANNEL Tramadol HCl (Tramadol Hcl 50 Mg Tablet) 50 mg PO BID PRN PRN Reason: Pain, Moderate(Pain Scale 4-6) Labs 05/22/23 08:37 05/21/23 08:09 Assessment and Plan (1) Atrial fibrillation with RVR: Status: Acute (2) Acute on chronic diastolic (congestive) heart failure: Status: Acute Plan Pt is an 78-year-old female with a PMH significant for?HFpEF, COPD on home O2, HTN, acute on chronic respiratory failure with hypercapnia, WOJCIECH non-compliant with CPAP, ephysema, cor pulmonale, cholecystitis, macular degeneration, and depression who presents to the ED with?worsening shortness of breath and fatigue for the past week.? Pt will be admitted to the hospital for treatment further evaluation of new onset AFib with RVR and acute on chronic see HFpEF exacerbation. New onset AFib with RVR, required IV cardizem but now off, present meds for rate control include dig, oral cardizem, and metoprolol rate, Echocardiogram with LVEF of 55-60%.? Severely dilated left atrium.? Moderate aortic/mitral annular calcification. No suitable for Anti arrhythmic due to multiple comorbidities per cardiology, goal of rate control and anticoagulation with xarelto. Acute on chronic HFpEF exacerbation--improving, of IV lasix, now oral lasix 40 mg daily (home dose) Elevated troponin--d/t chf, afib, no further w/u Thrombocytopenia--Plat back up; low readings likely error WOJCIECH Pt has not been compliant with CPAP at night CPAP at bedtime while here COPD Not in acute exacerbation Continue home inhalers GERD Continue omeprazole Obesity class 3 Weight loss encouraged Full Code DVT Prophylaxis: Lovenox Inpt for treatment of?new onset AFib with RVR in the setting of acute on chronic HFpEF exacerbation. I concur with PT for short term rehab Time Spent With Patient Time: Total time managing care of this patient today ____ minutes. Quality Stroke Does the patient have a stroke diagnosis?: No VTE Prior VTE?: No VTE Risk Level:: Medical - moderate - high VTE Device Contraindication: Treatment Not Indicated VTE Drug Contraindication: N/A - Med Ordered
[2023-05-23 11:12] VITALS: BP 124/72; PULSE 96; RESP 20; TEMP 36.5; O2SAT 97
--- NOTE | 2023-05-23 11:57 | MHC.CM.PN ---
IMM 05/23/23, CM MET W/PT TO DISCUSS DISPO, PT DECLINES TO GO TO STR AND REPORTS A HORRIBLE EXPERIENCE SHE HAD AT [facility] A FEW YRS AGO, PT IS ACTIVE W/[facility] AND WILL RETURN HOME W/DTR BRINGING IN PJ[employer] AND TRANSPORTING PT, ANTIC PT WILL D/C LATER TODAY VS TOMORROW W/[facility]UMP OF [facility]/HOME O2 W/KATH.
--- NOTE | 2023-05-23 13:42 | MHC.CM.PN ---
Addendum entered by Mckenna Crystal RN 05/23/23 14:49: PT HAS ADDITIONAL NEW MEDS OTHER THAN XERALTO, ALL SCRIPTS SENT [facility] IS NOT YET CONTRACTED W/MEDICAID. Original Note: PER [facility], PT CAN RECEIVE 30DAY FREE SUPPLY OF XERELTO UPON D/C W/DISCOUNT CARD PROVIDED TO PHARMACY, IF PT HAS ADDITIONAL NEW MEDS PT WILL NEED TO USE THE [facility].
--- NOTE | 2023-05-23 14:42 | P.DS_ITS ---
DS: Providers Provider Date of Service: 05/23/23 Date of admission: 05/18/23 21:45 Primary care physician: Clint Tong MD Consults: 05/18/23 21:45 Consult to Cardiology Routine Consulting Provider: [facility] [place] Cardiovascular Services Reason for consultation: afib with rvr Has provider been notified: Yes DS: Diagnosis Discharge Diagnosis (1) Atrial fibrillation with RVR: Status: Acute (2) Acute on chronic diastolic (congestive) heart failure: Status: Acute DS: Summary Hospital Course Hospital Course: Admission HPI Chief Complaint: SOB Pt is an 78-year-old female with a PMH significant for?HFpEF, COPD on home O2, HTN, acute on chronic respiratory failure with hypercapnia, WOJCIECH non-compliant with CPAP, ephysema, cor pulmonale, cholecystitis, and depression who presents to the ED with?worsening shortness of breath and fatigue for the past week.? Patient with chronic SOB secondary to COPD with a 60+ pack-year smoking history. SOB and fatigue have worsened to where pt could no longer travel from bedroom to bathroom and had a commode placed in the bedroom to assist with toileting. Pt also reports increasing lower leg edema, especially in the left ankle which has a tightness and pressure to it.? She denies history of AFib.? Pt apparently has a mechanical fall in her house on April 14, though complains of no specific muskuloskeletal pain or injury. Denies chest pain/pressure, palpitations. No fever, chills, nausea, vomiting, diarrhea, abdominal pain.? Denies lower leg, knee, ankle pain. Of note, patient states that she used to be on Eliquis after having a PE, but was taken off it by her trip follower d/t delvin, who then placed her on aspirin three times a week. In the ED patient was tachycardic up to 140, tachypneic up to 28, satting at 90% O2 on 4 L NC. Labs were significant for troponin 17.4, BNP 453.? Electrolytes WNL.? Kidney function baseline.? Hepatic function baseline. CXR showed worsening pulmonary aeration with increased interstitial coarsening, bibasilar patchy opacities, and small bilateral pleural effusions.? X-ray of left foot found moderate dorsal foot soft tissue swelling with no visible fracture seen.? Venous duplex of left lower extremity found no DVT demonstrated.? CTA of chest found no pulmonary embolism, but did show small right sided pleural effusion with bibasilar atelectasis. EKG demonstrated AFib with RVR of 133. Pt was treated with albuterol, diltiazem 10 mg, 20 mg, and 25 mg, Doxycycline, metoprolol, azithromycin, his started on a diltiazem drip.? Pt will be admitted to the hospital for treatment further evaluation of new onset AFib with RVR and acute on chronic see HFpEF exacerbation. Hospital course: New onset AFib with RVR, required IV cardizem but now off, present meds for rate control include? dig, oral cardizem,? and metoprolol.? Echocardiogram? with LVEF of 55-60%.? Severely dilated left atrium.? Moderate aortic/mitral annular calcification. No suitable for Anti arrhythmic due to multiple comorbidities per cardiology, goal is rate control and anticoagulation with xarelto. Acute on chronic HFpEF exacerbation--improving,? treated with IV Lasix while in the hospital and will be transitioned back to Torsemide upon discharge. The heart failure was likely trigered by AFIB with RVR Elevated troponin--d/t chf, afib, no further w/u Thrombocytopenia--Plat back up; low readings likely error WOJCIECH Pt has not been compliant with CPAP at night ?CPAP at bedtime while here COPD Not in acute exacerbation Continue home inhalers GERD Continue omeprazole Obesity class 3 Weight loss encoura Dispo: home with VNA, she declined short term rehab Time Spent with Patient Time attestation: Total time managing care of this patient today ____ minutes. Discharge coordination time: Greater than 30 minutes Quality: Safe Use of Opioids Does Pt have an Active Cancer Diagnosis on the Problem List?: No Quality: Stroke Does the patient have a stroke diagnosis?: No Physical Exam Vital Signs: Vital Signs: Last Vital Signs Temp 97.7 F 05/23/23 11:12 Pulse 96 05/23/23 11:12 Resp 20 05/23/23 11:12 BP 124/72 05/23/23 11:12 Pulse Ox 97 05/23/23 11:12 O2 Del Method Nasal Cannula 05/23/23 11:12 O2 Flow Rate 4 05/23/23 11:12 Oxygen Flow Rate 4 05/18/23 15:53 BMI result Body Mass Index 42.7 Const: Other: General: AO X 3, no acute distress Resp: CTA bilateral CVS: S1,S2, iregular iregular GI: +BS, NT, no distention Skin: No rash Neuro: motor grossly intact Psych: appropriate affect DS: Data Data Completed and Pending Completed studies during hospitalization [Text1]: Procedures Assistance with Respiratory Ventilation, Less than 24 Consecutive Hours, Continuous Positive Airway Pressure (10/04/22) Insertion of Infusion Device into Superior Vena Cava, Percutaneous Approach (10/04/22) Introduction of Vasopressor into Central Vein, Percutaneous Approach (10/04/22) Ultrasonography of Superior Vena Cava, Guidance (10/04/22) Labs on day of discharge: Preliminary micro results at discharge 05/18/23 17:18 Blood Culture - Preliminary Blood - Venous No growth after 48 hours. 05/18/23 16:41 Blood Culture - Preliminary Blood - Venous No growth after 48 hours. Discharge Plan Discharge Anticipated Discharge Date/Time: 05/23/23 14:28 Patient Disposition: Home Health Service Discharge Diagnosis: New AFIB, exacerbation of heart failure Referrals: Clint Tong MD [Primary Care Provider] - 1 Week Discharge Medications: New diltiazem HCl [Cardizem CD] 180 mg Capsule,Extended Release 24hr 180 mg PO DAILY Qty: 30 0RF Protocol: Hold for SBP/HR < HOLD for SBP < : 90 HOLD for HR < : 60 Xarelto 20 mg Tablet 20 mg PO DAILY Qty: 30 0RF digoxin 125 mcg (0.125 mg) Tablet 0.125 mg PO Q2D Qty: 30 0RF Continued fluticasone furoate-vilanterol [Breo Ellipta] 100-25 mcg/dose Blister With Device 1 puff inhalation RDAILY Qty: 1 0RF guaifenesin [Mucinex] 600 mg Tablet Extended Release 12hr 600 mg PO BID Qty: 20 0RF albuterol sulfate 2.5 mg /3 mL (0.083 %) solution for nebulization 1 vial inhalation Q4H PRN (Reason: Shortness Of Breath) docusate sodium 100 mg Capsule 100 mg PO BID-TID PRN (Reason: Constipation) albuterol sulfate 90 mcg/actuation Hfa Aerosol Inhaler 2 puff INHALATION QID PRN (Reason: Shortness Of Breath) metoprolol tartrate 25 mg tablet 0.5 tab PO BID buspirone 5 mg tablet 1 tab PO BID PRN (Reason: Anxiety) tramadol 50 mg tablet 1 tab PO BID PRN (Reason: Pain) aspirin 81 mg Tablet,Delayed Release (Dr/Ec) 81 mg PO MOWEFR@2100 cholecalciferol (vitamin D3) [Vitamin D3] 10 mcg (400 unit) Tablet 10 mcg PO BEDTIME B-complex with vitamin C Tablet 1 tab PO DAILY@1500 lutein 20 mg Capsule 20 mg PO BEDTIME Rx Instructions: give with meal/snack melatonin 5 mg Tablet 5 mg PO BEDTIME PRN (Reason: Insomnia) torsemide 20 mg tablet 40 mg PO DAILY Qty: 60 0RF atorvastatin 20 mg tablet 20 mg PO BEDTIME omeprazole 20 mg capsule,delayed release(DR/EC) 20 mg PO DAILY@0630 Discharge Orders: Discharge Order (Routine); Ordered 05/23/23 Ordered By: Saul Gonzalez Diet: Advance to usual diet Activity on Discharge: As tolerated Stand Alone Forms: Patient Portal Discharge page Care Plan Goals: recovery from heart failure Health Concerns: hear failure atrial fibrilation Plan of Treatment: take cardizem, metoprolol and digoxin to treate heart rate for atrial fibrilation, take xarelto to thin your blood and prevent stroke follow up with your doctor in a week follow up with DR. Harris heart doctor-office will call you continue taking Torsemide for heart failure Assessment: as above Patient Instructions: Heart Failure (DC), A-fib (Atrial Fibrillation) (DC)
== END 2023-05-23 16:39 | disposition home health service (06) | DRG 291 ==
LOC: HO.ED 17:35 → HO.EDOVER 21:54 → HO.IMC 05-19 15:43
PROVIDERS: Student in an Organized Health Care Education/Training Program; Admitting Provider Student in an Organized Health Care Education/Training Program; Emergency Provider Internal Medicine; PCP Internal Medicine; Visit Provider Internal Medicine
DX: I11.0 Hypertensive heart disease with heart failure (principal); I50.33 Acute on chronic diastolic (congestive) heart failure; Z68.41 Body mass index [BMI] 40.0-44.9, adult; I48.91 Unspecified atrial fibrillation; E66.01 Morbid (severe) obesity due to excess calories; G47.33 Obstructive sleep apnea (adult) (pediatric); Z99.81 Dependence on supplemental oxygen; J43.9 Emphysema, unspecified; Z91.199 Patient's noncompliance with other medical treatment and regimen due to unspecified reason; Z87.891 Personal history of nicotine dependence; Z79.51 Long term (current) use of inhaled steroids; Z79.82 Long term (current) use of aspirin; Z79.899 Other long term (current) drug therapy
CPT/HCPCS: 36415; 71045; 71275; 73630; 80048; 80053; 81001; 82803; 83605; 83880; 84443; 84484; 85025; 85027; 85610; 87040; 87086; 93005; 93306; 93971; 94640; 94660; 97162; 99285; J0456; J1160; J1650; J1940; Q9957; Q9967

== ENCOUNTER 2023-05-18 21:45 | Outpatient (BNV) | payer MEDICARE, MEDICAID, SELFPAY | END 2023-05-19 07:00 | PROVIDERS: Admitting Provider Student in an Organized Health Care Education/Training Program; Emergency Provider Internal Medicine; PCP Internal Medicine; Visit Provider Internal Medicine | DX: I51.7 Cardiomegaly (principal) | CPT/HCPCS: 93306 ==

== ENCOUNTER → 2023-05-18 21:45 | Outpatient (BNV) | payer MEDICARE, MEDICAID, SELFPAY | PROVIDERS: Admitting Provider Student in an Organized Health Care Education/Training Program; Emergency Provider Internal Medicine; PCP Internal Medicine; Visit Provider Student in an Organized Health Care Education/Training Program | DX: I48.91 Unspecified atrial fibrillation (principal); I50.33 Acute on chronic diastolic (congestive) heart failure | CPT/HCPCS: 99223; 99232; 99233; 99239 ==

== ENCOUNTER → 2023-05-18 21:45 | Outpatient (BNV) | payer MEDICARE, MEDICAID, SELFPAY | PROVIDERS: Admitting Provider Student in an Organized Health Care Education/Training Program; Emergency Provider Internal Medicine; PCP Internal Medicine; Visit Provider Internal Medicine | DX: D69.6 Thrombocytopenia, unspecified (principal); I48.91 Unspecified atrial fibrillation | CPT/HCPCS: 93010; 99223; 99232 ==

== ENCOUNTER 2023-06-09 15:25 | Outpatient (REF) | payer MEDICARE, MEDICAID, SELFPAY ==
[2023-06-09 16:25] LABS: MANUAL DIFF FLAG NO
[2023-06-09 16:48] LABS: Basophils Percent Auto 0.3 % (0-2); Eosinophils Absolute Auto 0.1 X10*3/uL (0.0-0.4); Hematocrit 41.1 % (37.0-47.0); Hemoglobin 12.7 g/dl (12.0-16.0); Imm Gran Abs Auto 0.02 X10*3/uL (0.00-0.03); Imm Gran Pct Auto 0.3 % (0.0-0.4); Lymphocytes Absolute Auto 1.3 X10*3/uL (1.2-4.9); Lymphocytes Percent Auto 18.2 % (20-40); Mean Corpuscular HGB Conc 30.9 g/dl (31.0-35.0); Mean Corpuscular Hemoglobin 30.6 pg (27.0-33.0); Monocytes Absolute Auto 0.7 X10*3/uL (0.1-1.2); Monocytes Percent Auto 10.1 % (2-11); Neutrophils Percent Auto 70.1 % (45-73); Platelet Count 206 X10*3/uL (160-400); Red Blood Count 4.15 X10*6/uL (4.20-5.50); Red Cell Distribution Width 14.6 % (11.0-16.0); White Blood Count 7.2 X10*3/uL (4.8-10.8)
[2023-06-09 17:08] LABS: Alanine Aminotransferase 12 U/L (0-31); Albumin Level 3.7 g/dL (3.5-5.0); Alkaline Phosphatase 80 U/L (39-117); Anion Gap 13 (12-20); Aspartate Amino Transferase 23 U/L (5-31); Bilirubin Total 0.4 mg/dL (0.0-1.0); Blood Urea Nitrogen 10 mg/dL (9-16); Calcium 10.1 mg/dL (8.4-10.2); Carbon Dioxide 43 mmol/L (22-29); Chloride 92 mmol/L (96-108); Estimated Glomerular Filt Rate > 60; Glucose Random 134 mg/dL (60-115); Potassium 3.7 mmol/L (3.3-5.1); Sodium 144 mmol/L (135-145); Total Protein 7.2 g/dL (6.5-8.0)
== END 2023-06-09 15:26 | disposition home or self-care (01) ==
LOC: HO.LAB 15:25
PROVIDERS: PCP Internal Medicine; Visit Provider Internal Medicine
DX: I48.91 Unspecified atrial fibrillation (principal); J44.9 Chronic obstructive pulmonary disease, unspecified; K21.9 Gastro-esophageal reflux disease without esophagitis; I50.9 Heart failure, unspecified
CPT/HCPCS: 36415; 80053; 85025; 99212

== ENCOUNTER 2023-06-09 15:33 | Outpatient (AMB) | payer MEDICARE, MEDICAID, SELFPAY ==
[2023-06-09 15:34] VITALS: BP 128/74; PULSE 89; O2SAT 95
--- NOTE | 2023-06-09 15:34 | A.OFFVIS_ITS ---
Intake Vital Signs 06/09/23 15:34 Weight 248 lb 8 oz BP 128/74 Blood Pressure Location Rt brachial Position Sitting Pulse 89 Pulse Source Pulse Oximeter Pulse Oximetry (%) 95 Oxygen Delivery Method Room Air Intake Visit Reasons: copd Allergies ceftriaxone [From Rocephin] Allergy (Unknown, Verified 06/09/23 15:40) Unknown vancomycin Allergy (Unknown, Verified 06/09/23 15:40) itch, rash, hives HPI copd HPI Details 78-year-old lady, recent 60+ pack-year smoker, quit August of 2020 followed for COPD and dyspnea on exertion.? She has been using Breo, albuterol MDI, and duo nebs with reasonable control of her symptoms. She has had several hospitalizations for congestive heart failure exacerbation and AFib. 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 She has been using digoxin, extended- release Cardizem, and Coreg for her underlying heart failure. She denies recent exacerbations. Patient has returned her CPAP as she does not want to use it anymore. [facility], [facility] Medical History (Updated 06/09/23 @ 16:02 by Jose Alfredo Navas MD) Acute and chronic respiratory failure with hypercapnia Cholecystitis COPD (chronic obstructive pulmonary disease) Cor pulmonale, chronic Diastolic CHF with preserved left ventricular function, NYHA class 2 Dilated cbd, acquired Emphysema lung Gallstone History of non-ST elevation myocardial infarction (NSTEMI) (~09/2022) Leukocytosis WOJCIECH (obstructive sleep apnea) Osteoporosis Pancreatitis Supplemental oxygen dependent Surgical History (Updated 06/09/23 @ 14:36 by Gretta Thomas PA-C) History of squamous cell carcinoma excision Family History (Updated 05/19/23 @ 09:52 by Liam Harris MD) Father Myocardial infarction Social History Household Members: Family Housing: House Do you presently have visiting nurse or other home services: No Unable to assess alcohol history related to: Unknown Alcohol intake: never Patient Tobacco Use Status: Former Tobacco user Tobacco use type: Cigarette Substance Use Type: Unknown service: No Current occupational status: retired Review of Systems Const Denies daytime sleepiness, Denies excessive sweating, Denies fatigue, Denies fever(s), Denies lethargy, Denies malaise, Denies night sweats, Denies snoring and Denies weight loss Eyes Denies blurry vision and Denies itchy eyes ENT Denies nasal congestion, Denies post nasal drip, Denies sinus pain, Denies sinus pressure and Denies other ( Thrush) Card Denies chest pain, Reports pedal edema, Denies dyspnea, Denies orthopnea and Denies paroxysmal nocturnal dyspnea Resp Denies cough, Denies hemoptysis, Denies excessive phlegm production, Denies dyspnea, Denies snoring and Denies wheezing GI Denies abdominal pain and Denies heartburn Musc Denies myalgias, Denies arthralgias and Denies joint swelling Skin/Breast Denies rash Neuro Denies memory loss and Denies seizure-like activity Psych Denies abnormal sleep pattern, Denies anxiety and Denies memory loss Endo Denies excessive sweating, Denies fatigue and Denies heat intolerance Marco/Lymph Denies easy bruising Aller/Immun Denies itchy eyes, Denies seasonal rhinorrhea and Denies wheezing Physical Exam Vital Signs: Last Vital Signs Pulse 89 06/09/23 15:34 BP 128/74 06/09/23 15:34 Pulse Ox 95 06/09/23 15:34 Oxygen Delivery Method Room Air 06/09/23 15:34 Const General: no acute distress and alert Nutritional Appearance: obese Orientation/consciousness: Other orientation findings ( oriented) HEENT Head: Yes atraumatic Eyes General: appearance normal, both eyes and all related structures Sclerae: sclerae normal EOM: EOMs intact bilaterally Neck Neck: Yes supple Lymphatic: no lymphadenopathy noted Resp Effort & Inspection: normal respiratory effort and no use of accessory muscles Auscultation: clear to auscultation bilaterally Cardio Rate: regular rate Rhythm: regular rhythm Heart sounds: no gallops, no murmurs and no rubs Skin General skin exam: other ( warm) Extrem General: No clubbing, No cyanosis and Yes edema (Trace bilateral) Assessment & Plan Assessment & Plan (1) COPD (chronic obstructive pulmonary disease): Code(s): J44.9 - Chronic obstructive pulmonary disease, unspecified Plan: Well controlled on current regimen of Breo, albuterol MDI/duo nebs. Continue current regimen. (2) Dyspnea on exertion: Code(s): R06.09 - Other forms of dyspnea Plan: Multifactorial with major contribution from underlying cardiac etiology including diastolic congestive heart failure and AFib. Will refer to cardiology. Continue on torsemide 40 mg daily at this time. (3) Diastolic CHF with preserved left ventricular function, NYHA class 2: Code(s): I50.30 - Unspecified diastolic (congestive) heart failure Orders: Referrals Cardiology Referral I50.30 - Unspecified diastolic (congestive) heart failure Coding Level of Care Code Est Pt Level 4 (61578) Diagnoses COPD (chronic obstructive pulmonary disease) J44.9 Dyspnea on exertion R06.09 Diastolic CHF with preserved left ventricular function, NYHA class 2 I50.30
== END 2023-06-09 16:02 | disposition home or self-care (01) ==
PROVIDERS: PCP Internal Medicine; Visit Provider Internal Medicine Pulmonary Disease
DX: J44.9 Chronic obstructive pulmonary disease, unspecified (principal); R06.09 Other forms of dyspnea; I50.30 Unspecified diastolic (congestive) heart failure
CPT/HCPCS: 99214

== ENCOUNTER 2023-08-08 14:31 | Inpatient (IN) | payer MEDICARE, MEDICAID, SELFPAY ==
--- NOTE | ~2023-08-08 | CT_ITS ---
EXAMINATION: CT ABDOMEN AND PELVIS WITHOUT CONTRAST CLINICAL INFORMATION: Melanotic stools. COMPARISON: 10/05/2022 TECHNIQUE: Multidetector volumetric imaging was performed from the superior aspect of the liver through the pubic symphysis. Sagittal and coronal reformatted images were obtained on the technologist's workstation. This CT examination was performed using dose optimization techniques as appropriate, variously including the following: *Automated exposure control *Adjustment of mA and/or kV according to patient size (this includes techniques or standardized protocols for targeted exams where dose is matched to indication/reason for exam; i.e. extremities or head) *Use of iterative reconstruction technique DLP: 893 mGy-cm FINDINGS: LUNG BASES: There is trace pleural fluid with atelectasis. There is a minimal dependent pericardial effusion. LIVER, GALLBLADDER, AND BILIARY TREE: The liver is normal in size, shape, and attenuation. No focal hepatic lesion or biliary ductal dilatation is present. Multiple gallstones are noted. PANCREAS: There is a stable 2.9 cm hypodensity along the head of the pancreas with low attenuation values consistent with that of simple fluid. SPLEEN: Unremarkable. ADRENAL GLANDS: Unremarkable. KIDNEYS AND URETERS: The kidneys are normal in size, shape, and attenuation. No hydronephrosis, hydroureter, or calculi seen. No perinephric stranding. There is a 2 cm cyst lower pole left kidney. BLADDER: Unremarkable. GASTROINTESTINAL TRACT: There is diverticulosis throughout without evidence for acute diverticulitis. The appendix is unremarkable. ABDOMINAL WALL: No significant hernia is appreciated. LYMPH NODES: Normal. VASCULAR: There is atherosclerotic plaque of the abdominal aorta and branches. PELVIC VISCERA: Unremarkable. OSSEOUS STRUCTURES: There is diffuse [id number] thoracolumbar disc degenerative change with grade [address] L[address]/CT abdomen pelvis wo IV con IMPRESSION: Cholelithiasis. Diffuse diverticulosis without evidence for acute diverticulitis. Stable apparent cystic structure along the pancreatic head. Trace bilateral pleural effusions with trace dependent pericardial effusion with bibasilar atelectatic change. No acute intra-abdominal process. Fleischner guidelines were followed.
--- NOTE | ~2023-08-08 | XR_ITS ---
EXAMINATION: XR CHEST CLINICAL INFORMATION: Dyspnea and hypoxia. COMPARISON: None available. TECHNIQUE: Frontal view of the chest was obtained. FINDINGS: There is moderate cardiomegaly with mild increased pulmonary vascularity. The lungs are expanded and clear. No gross bony abnormality seen. XR/XR chest 1V IMPRESSION: Moderate cardiomegaly with mild pulmonary vascular congestion.
[2023-08-08 14:37] VITALS: BMI 41.5
[2023-08-08 14:48] VITALS: BP 96/50; PULSE 98; RESP 22; TEMP 36.9; O2SAT 84
[2023-08-08 14:50] VITALS: O2SAT 93
--- NOTE | 2023-08-08 14:55 | ECG_ITS ---
Test Reason : SOB Blood Pressure : / mmHG Vent. Rate : 091 BPM Atrial Rate : 000 BPM P-R Int : 000 ms QRS Dur : 112 ms QT Int : 350 ms P-R-T Axes : 000 013 004 degrees QTc Int : 430 ms Atrial fibrillation Low voltage QRS Nonspecific ST abnormality Incomplete right bundle branch block Abnormal ECG When compared with ECG of 18-MAY-2023 16:24, Nonspecific T wave abnormality no longer evident in Anterolateral leads Referred By: Pelon Mcneil Electronically Signed By:LARISSA FRYE MD
--- NOTE | 2023-08-08 14:58 | ED_ITS ---
HPI - SOB/Dyspnea General Chief Complaint: Dyspnea Stated Complaint: SOB, BLOOD IN STOOL Time Seen by Provider: 08/08/23 14:41 Source: patient Mode of arrival: EMS Limitations: no limitations History of Present Illness HPI Narrative: 78-year-old female with a PMH significant for?HFpEF, COPD on 4 L nasal cannula home O2, HTN, acute on chronic respiratory failure with hypercapnia, WOJCIECH non- compliant with CPAP, ephysema, cor pulmonale, cholecystitis, atrial fibrillation with RVR (admitted 05/23/2023-started on Xarelto) depression who presents to the ED for evaluation of shortness of breath, decreased O2 saturation bloody stool yesterday. Information was obtained from the ED nurse who got the information from EMS. Apparently the patient's daughter notice bloody stools yesterday morning, patient states she did not look at the stool and believes that she only had 1 episode yesterday. The patient apparently was short of breath all night and had difficulty sleeping. This morning, she appeared short of breath therefore her daughter called an ambulance. EMS reported that the patient had an O2 saturation of 50% on room air however patient chronically wears 4 L of oxygen via nasal cannula for her COPD in the emergency department her O2 saturation was 84% on room air and 4 L she was 93%. She denied fever, chills, rhinorrhea, sore throat. She states she has a chronic cough which is unchanged from her baseline. She states she is short of breath but again she believes is consistent with her baseline COPD shortness of breath. She denied nausea or vomiting. She states that she did not see the bloody stool believes that she only had 1 episode yesterday. Related Data Home Medications Medication Instructions Recorded Confirmed atorvastatin 20 mg tablet 20 mg PO BEDTIME 10/13/20 05/18/23 omeprazole 20 mg capsule,delayed 20 mg PO DAILY@0630 10/13/20 05/18/23 release albuterol sulfate 2.5 mg/3 mL 1 vial inhalation Q4H PRN 01/07/22 05/18/23 (0.083 %) solution for nebulization Shortness Of Breath albuterol sulfate 90 mcg/actuation 2 puff inhalation QID PRN 01/07/22 05/18/23 aerosol inhaler Shortness Of Breath docusate sodium 100 mg capsule 100 mg PO BID-TID PRN Constipation 01/07/22 05/18/23 metoprolol tartrate 25 mg tablet 12.5 mg PO BID 01/07/22 05/18/23 B-complex with vitamin C 1 tab PO DAILY@1500 10/04/22 05/18/23 aspirin 81 mg tablet,delayed 81 mg PO MOWEFR@2100 10/04/22 05/18/23 release buspirone 5 mg tablet 1 tab PO TID Anxiety 10/04/22 05/18/23 cholecalciferol (vitamin D3) 10 10 mcg PO BEDTIME 10/04/22 05/18/23 mcg (400 unit) tablet (Vitamin D3) lutein 20 mg capsule 20 mg PO BEDTIME 10/04/22 05/18/23 melatonin 5 mg tablet 5 mg PO BEDTIME PRN Insomnia 10/04/22 05/18/23 tramadol 50 mg tablet 1 tab PO BID PRN Pain 10/04/22 05/18/23 cyclobenzaprine 5 mg tablet 5 mg PO BID PRN pain 08/08/23 hydroxyzine pamoate 25 mg capsule 25 mg PO DAILY PRN anxiety 08/08/23 nystatin 100,000 unit/gram topical 1 appl topical BID 08/08/23 powder ropinirole 1 mg tablet 1 mg PO BEDTIME 08/08/23 torsemide 20 mg tablet 40 mg PO BID 08/08/23 Previous Rx's Medication Instructions Recorded fluticasone furoate 100 1 puff inhalation RDAILY #1 ea 11/03/20 mcg-vilanterol 25 mcg/dose inhalation powder (Breo Ellipta) guaifenesin 600 mg tablet, 600 mg PO BID #20 tabs 11/03/20 extended release 12 hr (Mucinex) digoxin 125 mcg (0.125 mg) tablet 0.125 mg PO Q2D #30 tabs 05/23/23 diltiazem HCl 180 mg 180 mg PO DAILY #30 caps 05/23/23 capsule,extended release 24 hr (Cardizem CD) rivaroxaban 20 mg tablet (Xarelto) 20 mg PO DAILY #30 tabs 05/23/23 Allergies Allergy/AdvReac Type Severity Reaction Status Date / Time ceftriaxone [From Rocephin] Allergy Unknown Unknown Verified 08/08/23 14:37 vancomycin Allergy Unknown itch, Verified 08/08/23 14:37 rash, hives Review of Systems 2 Review of Systems: Yes all other systems are reviewed and are negative [facility] Past Medical History [facility] Narrative: Social history: Patient lives at home and is cared for by her daughters. She states that she is a former smoker and stop smoking 3 years prior, she has greater than 60 pack-year history of smoking. She denies alcohol and drug use. Medical History (Updated 08/08/23 @ 17:14 by Pelon Mcneil MD) History of non-ST elevation myocardial infarction (NSTEMI) (~09/2022) Osteoporosis Leukocytosis Dilated cbd, acquired Cholecystitis Gallstone Pancreatitis WOJCIECH (obstructive sleep apnea) Acute and chronic respiratory failure with hypercapnia Diastolic CHF with preserved left ventricular function, NYHA class 2 Cor pulmonale, chronic Emphysema lung Supplemental oxygen dependent COPD (chronic obstructive pulmonary disease) Surgical History (Updated 06/09/23 @ 14:36 by Gretta Thomas PA-C) History of squamous cell carcinoma excision Family History Family History (Updated 05/19/23 @ 09:52 by Liam Harris MD) Father Myocardial infarction Social History Social History Household Members: Family Housing: House Do you presently have visiting nurse or other home services: No Unable to assess alcohol history related to: Unknown Alcohol intake: never Patient Tobacco Use Status: Former Tobacco user Tobacco use type: Cigarette Smoked in Last 30 Days: No Use of substances other than those prescribed or required for medical reasons: No Substance Use Type: Unknown Advance Directives: No Advance Directives Information Provided: No service: No Current occupational status: retired Physical Exam 2 Vital Signs: Vital Signs: Last Vital Signs Temp 97.9 F 08/08/23 17:29 Pulse 82 08/08/23 17:29 Resp 20 08/08/23 17:29 BP 133/59 L 08/08/23 17:29 Pulse Ox 98 08/08/23 17:29 O2 Del Method Nasal Cannula 08/08/23 17:29 O2 Flow Rate 5 08/08/23 17:29 BMI result Body Mass Index 41.5 Vital signs were normal. On 4 L of oxygen via nasal cannula patient's O2 saturation is 93%. Exam: General: Awake, alert in no distress, elevated BMI 41.5 Head: Normocephalic, atraumatic EENT: PERRL, Lids normal, sclera normal, conjunctiva normal, nose normal , ears normal, throat without erythema or exudates Neck: Supple, no adenopathy, no trachea midline or C-spine tenderness Lung: breath sounds symmetric, no wheezing, rales or rhonchi Chest: symmetric movement, nontender Heart: regular rate and rhythm, normal S1, S2 no murmurs or rubs Abdomen: soft, obese, mild left lower quadrant tenderness , nondistended, normal bowel sounds, no rebound Back: no vertebral tenderness, no CVAT Extremities: no deformities, moves all extremities symmetrically Neuro: Awake, alert, oriented, normal speech, moves all extremities symmetrically Psych: Pleasant, cooperative Medications Administered Generic Name Dose Route Start Last Admin Trade Name Freq PRN Reason Stop Dose Admin Lactated Ringer's 1,000 mls @ 125 mls/hr 08/08/23 15:15 08/08/23 16:34 Lr IV 08/08/23 23:14 125 mls/hr .Q8H KALPESH Administration Discontinued Medications Generic Name Dose Route Start Last Admin Trade Name Freq PRN Reason Stop Dose Admin Prothrombin Complex Concent ( 80 mls @ 480 mls/hr 08/08/23 16:52 08/08/23 17:33 Human) 2,000 unit/ IV IV 08/08/23 17:01 Infused Miscellaneous Supplies .Q10M ONE Infusion Pantoprazole Sodium 40 mg 08/08/23 17:13 08/08/23 17:33 Pantoprazole Sodium 40 Mg/10 Ml Vial IVPUSH 08/08/23 17:14 40 mg ONCE ONE Administration Medical Decision Making Medical Decision Making [facility] Narrative: 78-year-old female with a PMH significant for?HFpEF, COPD on 4 L nasal cannula home O2, HTN, acute on chronic respiratory failure with hypercapnia, WOJCIECH non- compliant with CPAP, ephysema, cor pulmonale, cholecystitis, atrial fibrillation with RVR (admitted 05/23/2023-started on Xarelto) depression who presents to the ED for evaluation of shortness of breath, decreased O2 saturation bloody stool yesterday. Patient was reported to have O2 saturation of 50% on room air however patient wears 4 L of oxygen via nasal can in here in the emergency depart she was 84% on room air and 93% on 4 L of oxygen via nasal cannula-this may represent her chronic hypoxia. Patient's abdominal exam did reveal mild left lower quadrant tenderness. Her rectal exam revealed red melanotic stool. The patient is on Xarelto for atrial fibrillation. I ordered the following evaluation: CBC, CMP, lactic acid, lipase, BNP, PT/INR, PTT, troponin, COVID- 19, flu, RSV, VBG, chest x-ray one view, CT scan abdomen pelvis with IV contrast. Patient was also ordered to get a type and screen. 14:51 Patient's H&H did drop from 12 and 41 on 06/09/2023 and 210.2 and 34.6 today suggesting that she has had a significant GI bleed. Patient's PT/INR PTT are elevated secondary to Xarelto. Given the potential for life-threatening GI bleed I will reverse her Xarelto with Kcentra 2000 units IV. Patient's chest x-ray consistent with cardiomegaly with chronic interstitial infiltrates, she does have an elevated BNP of 488 but this is chronic. I will discuss admission with the covering gastrologist hospitalist. 17:12 Covering gastrologist, Dr. Carrasco recommend keeping the patient NPO, stopping Xarelto, and starting PPI IV Q 12 hours. I ordered Protonix 40 mg IV. I did discuss the patient's presentation and need for admission over tiger text with the covering hospitalist, Dr. Gonzalez Differential Diagnosis Differential Diagnoses: The differential diagnosis associated with the presentation includes Differential diagnosis includes was not limited to pneumonia, COPD exacerbation, COVID-19, RSV, influenza, lower GI bleed, anemia, electrolyte abnormality, Admission/Observation Consideration of admission/observation: Escalation of care including admission/observation considered Lab Data MDM Lab Attestation statement: I reviewed the patient's lab results. My interpretation patient's laboratory evaluation as follows: WBC was normal 9300. Patient had anemia with an H&H of 10.2 and 34.6 this was compared to an H&H of 12 and 41 on 06/09/2023-this is significant drop. Patient's INR and PTT were elevated 2.0 and 24 patient's PTT was elevated 37.5-this is secondary to Xarelto. BNP is elevated 488 but this is chronic. Patient's bicarb is elevated 43 again this is chronic. Lactic acid was normal at 1.4. 08/08/23 15:50 08/08/23 15:50 Labs: Lab Results 08/08/23 08/08/23 08/08/23 Range/Units 15:50 16:01 16:11 WBC 9.3 (4.8-10.8) X10*3/uL RBC 3.46 L (4.20-5.50) X10*6/uL Hgb 10.2 L (12.0-16.0) g/dl Hct 34.6 L (37.0-47.0) % MCV 100.0 H (80.0-98.0) fL MCH 29.5 (27.0-33.0) pg MCHC 29.5 L (31.0-35.0) g/dl RDW 14.1 (11.0-16.0) % Plt Count 177 (160-400) X10*3/uL MPV 11.4 (9.4-12.3) fL Immature Gran % (Auto) 0.6 H (0.0-0.4) % Neut % (Auto) 72.6 (45-73) % Lymph % (Auto) 15.4 L (20-40) % [place] % (Auto) 10.1 (2-11) % Eos % (Auto) 0.9 (0-4) % Baso % (Auto) 0.4 (0-2) % Lymph # (Auto) 1.4 (1.2-4.9) X10*3/uL [place] # (Auto) 0.9 (0.1-1.2) X10*3/uL Eos # (Auto) 0.1 (0.0-0.4) X10*3/uL Baso # (Auto) 0.0 (0.0-0.2) X10*3/uL Abs Immat Gran (auto) 0.06 H (0.00-0.03) X10*3/uL Absolute Neuts (auto) 6.7 (2.0-8.3) x10*3/uL Absolute Nucleated RBC 0.020 H (0.0-0.012) X10*3/uL Nucleated RBC % (auto) 0.2 (0.0-0.2) /100WBC PT 24.0 H D (11.1-13.3) SEC INR 2.0 H (0.9-1.1) APTT 37.5 H (26.0-36.4) SEC VBG pH (7.32-7.43) VBG pCO2 mmHg VBG pO2 mmHg VBG HCO3 (22-26) mmol/L VBG O2 Saturation % VBG Base Excess mmol/L Sodium 142 (135-145) mmol/L Potassium 3.8 (3.3-5.1) mmol/L Chloride 88 L (96-108) mmol/L Carbon Dioxide 43 H* (22-29) mmol/L Anion Gap 15 (12-20) BUN 16 (9-16) mg/dL Creatinine 0.85 (0.5-1.4) mg/dL Estim Creat Clear Calc 68.4 Estimated GFR > 60 Random Glucose 140 H (60-115) mg/dL Lactic Acid 1.4 (0.5-2.0) mmol/L Calcium 10.0 (8.4-10.2) mg/dL Total Bilirubin 0.4 (0.0-1.0) mg/dL AST 26 (5-31) U/L ALT 15 (0-31) U/L Alkaline Phosphatase 76 (39-117) U/L B-Natriuretic Peptide 488 H (<100) pg/mL Total Protein 7.5 (6.5-8.0) g/dL Albumin 3.8 (3.5-5.0) g/dL Lipase 11 (8-78) U/L Urine Color Yellow Urine Appearance Clear Urine pH 5.5 (5.0-9.0) Ur Specific [place] 1.010 (1.005-1.025) Urine Protein Negative (Neg-Trace) mg/dL Urine Glucose (UA) Negative (Negative) mg/dL Urine Ketones Negative (Negative) mg/dL Urine Blood Small (1+) H (Negative) Urine Nitrite Negative (Negative) Ur Leukocyte Esterase Negative (Negative) Urine RBC 0-2 (0-2) /HPF Urine WBC 0-5 (0-5) /HPF Ur Squamous Epith Cells 6-10 (0-2) /HPF Urine Bacteria 1+ (None Seen) Hyaline Casts 6-10 (0-2) /LPF Stool Occult Blood POSITIVE (NEGATIVE) Blood Type A Positive Antibody Screen NEGATIVE 10/24/23 Range/Units 16:18 WBC (4.8-10.8) X10*3/uL RBC (4.20-5.50) X10*6/uL Hgb (12.0-16.0) g/dl Hct (37.0-47.0) % MCV (80.0-98.0) fL MCH (27.0-33.0) pg MCHC (31.0-35.0) g/dl RDW (11.0-16.0) % Plt Count (160-400) X10*3/uL MPV (9.4-12.3) fL Immature Gran % (Auto) (0.0-0.4) % Neut % (Auto) (45-73) % Lymph % (Auto) (20-40) % [place] % (Auto) (2-11) % Eos % (Auto) (0-4) % Baso % (Auto) (0-2) % Lymph # (Auto) (1.2-4.9) X10*3/uL [place] # (Auto) (0.1-1.2) X10*3/uL Eos # (Auto) (0.0-0.4) X10*3/uL Baso # (Auto) (0.0-0.2) X10*3/uL Abs Immat Gran (auto) (0.00-0.03) X10*3/uL Absolute Neuts (auto) (2.0-8.3) x10*3/uL Absolute Nucleated RBC (0.0-0.012) X10*3/uL Nucleated RBC % (auto) (0.0-0.2) /100WBC PT (11.1-13.3) SEC INR (0.9-1.1) APTT (26.0-36.4) SEC VBG pH 7.54 H (7.32-7.43) VBG pCO2 61 mmHg VBG pO2 60 mmHg VBG HCO3 53 H (22-26) mmol/L VBG O2 Saturation 94.0 % VBG Base Excess 26.7 mmol/L Sodium (135-145) mmol/L Potassium (3.3-5.1) mmol/L Chloride (96-108) mmol/L Carbon Dioxide (22-29) mmol/L Anion Gap (12-20) BUN (9-16) mg/dL Creatinine (0.5-1.4) mg/dL Estim Creat Clear Calc Estimated GFR Random Glucose (60-115) mg/dL Lactic Acid (0.5-2.0) mmol/L Calcium (8.4-10.2) mg/dL Total Bilirubin (0.0-1.0) mg/dL AST (5-31) U/L ALT (0-31) U/L Alkaline Phosphatase (39-117) U/L B-Natriuretic Peptide (<100) pg/mL Total Protein (6.5-8.0) g/dL Albumin (3.5-5.0) g/dL Lipase (8-78) U/L Urine Color Urine Appearance Urine pH (5.0-9.0) Ur Specific [place] (1.005-1.025) Urine Protein (Neg-Trace) mg/dL Urine Glucose (UA) (Negative) mg/dL Urine Ketones (Negative) mg/dL Urine Blood (Negative) Urine Nitrite (Negative) Ur Leukocyte Esterase (Negative) Urine RBC (0-2) /HPF Urine WBC (0-5) /HPF Ur Squamous Epith Cells (0-2) /HPF Urine Bacteria (None Seen) Hyaline Casts (0-2) /LPF Stool Occult Blood (NEGATIVE) Blood Type Antibody Screen Independent Interpretation I performed an independent interpretation of an: EKG and Plain X-Ray Interpretation: My independent interpretation patient's 12 EKG is as follows: Atrial fibrillation with a rate of 91, prolonged QRS of 112 milliseconds, normal QTC interval, no ST segment elevation, no ST segment depression, nonspecific T-wave abnormalities, incomplete right bundle-branch block. My interpretation patient's one-view chest x-ray is as follows: Cardiomegaly with increased interstitial infiltrates, no change compared to 05/18/2023 Radiology Impression Discussion of test interpretation with radiology: I have reviewed the radiologist's reading. Radiologist Impression: XR chest 1V IMPRESSION: Moderate cardiomegaly with mild pulmonary vascular congestion. Dictated By: Juan F Hill MD External Record Review External record reviewed: Inpatient record (Discharge summary 05/23/2023) Critical Care Time Critical Care Time Total Critical Care Time: 45 Attestation: Critical Care: The patient was critically ill with a high probability of imminent or life threatening deterioration. I spent greater than 30 minutes of discontinuous time evaluating the patient,delivering critical care at the bedside, discussing and evaluating pertinent data with consultants. Critical care time does not include time spent performing separately billable procedures or teaching. Total time spent performing critical care was 45 minutes. Discharge Plan Discharge Clinical Impression: Acute lower gastrointestinal bleeding, Anemia, Chronic anticoagulation Patient Disposition: Admitted As Inpatient
--- NOTE | 2023-08-08 15:14 | PC.NURSE ---
xray bedside. tech obtaining ekg.
[2023-08-08 16:00] LABS: MANUAL DIFF FLAG NO
[2023-08-08 16:02] LABS: OBS Int Ctl Valid YES; OBS1 POSITIVE (NEGATIVE)
[2023-08-08 16:09] VITALS: BP 126/69; PULSE 96; RESP 16; TEMP 36.9; O2SAT 97
[2023-08-08 16:11] LABS: Partial Thromboplastin Time 37.5 SEC (26.0-36.4)
[2023-08-08 16:13] LABS: Lactic Acid 1.4 mmol/L (0.5-2.0)
[2023-08-08 16:15] LABS: Basophils Percent Auto 0.4 % (0-2); Eosinophils Absolute Auto 0.1 X10*3/uL (0.0-0.4); Eosinophils Percent Auto 0.9 % (0-4); Hematocrit 34.6 % (37.0-47.0); Hemoglobin 10.2 g/dl (12.0-16.0); Imm Gran Abs Auto 0.06 X10*3/uL (0.00-0.03); Imm Gran Pct Auto 0.6 % (0.0-0.4); Lymphocytes Absolute Auto 1.4 X10*3/uL (1.2-4.9); Lymphocytes Percent Auto 15.4 % (20-40); Mean Corpuscular HGB Conc 29.5 g/dl (31.0-35.0); Mean Corpuscular Hemoglobin 29.5 pg (27.0-33.0); Mean Platelet Volume 11.4 fL (9.4-12.3); Monocytes Absolute Auto 0.9 X10*3/uL (0.1-1.2); Monocytes Percent Auto 10.1 % (2-11); NRBC Pct Auto 0.2 /100WBC (0.0-0.2); Neutrophils Absolute Auto 6.7 x10*3/uL (2.0-8.3); Neutrophils Percent Auto 72.6 % (45-73); Platelet Count 177 X10*3/uL (160-400); Red Blood Count 3.46 X10*6/uL (4.20-5.50); Red Cell Distribution Width 14.1 % (11.0-16.0); White Blood Count 9.3 X10*3/uL (4.8-10.8)
[2023-08-08 16:19] LABS: Alanine Aminotransferase 15 U/L (0-31); Albumin Level 3.8 g/dL (3.5-5.0); Alkaline Phosphatase 76 U/L (39-117); Anion Gap 15 (12-20); Aspartate Amino Transferase 26 U/L (5-31); Bilirubin Total 0.4 mg/dL (0.0-1.0); Blood Urea Nitrogen 16 mg/dL (9-16); Carbon Dioxide 43 mmol/L (22-29); Chloride 88 mmol/L (96-108); Creatinine Clr Calc Pharmacy 68.4; Estimated Glomerular Filt Rate > 60; Glucose Random 140 mg/dL (60-115); Lipase 11 U/L (8-78); Potassium 3.8 mmol/L (3.3-5.1); Sodium 142 mmol/L (135-145); Total Protein 7.5 g/dL (6.5-8.0)
--- NOTE | 2023-08-08 16:21 | PC.NURSE ---
IVF delay d/t pt being difficult stick. 20g IV placed bilaterally in AC's. will administer fluids when pt returns from CT.
[2023-08-08 16:22] LABS: B Type Natriuretic Peptide 488 pg/mL (<100)
[2023-08-08 16:23] LABS: Venous Blood Gas Refer to POC result
[2023-08-08 16:23] LABS: VBG Base Excess 26.7 mmol/L; VBG HCO3 53 mmol/L (22-26); VBG pCO2 61 mmHg; VBG pH 7.54 (7.32-7.43); VBG pO2 60 mmHg
[2023-08-08] MEDS: Lactated Ringers 1,000 ML 125 ML IV (16:34)
--- NOTE | 2023-08-08 16:38 | PC.NURSE ---
pt returned from CT at this time - IVF administered per provider order.
[2023-08-08 16:43] LABS: Appearance Urine Clear; Color Urine Yellow; Glucose Urine UA Negative (Negative); Leukocyte Esterase Urine Negative (Negative); Nitrite Urine Negative (Negative); PH 5.5 (5.0-9.0); UMIC TRIGGER UACC YES; Urine Blood Small (1+) (Negative); Urine Ketones Negative (Negative); Urine Protein Negative (Neg-Trace)
[2023-08-08 17:13] LABS: Bacteria Urine 1+ (None Seen); RBC Urine 0-2 /HPF (0-2); WBC Urine 0-5 /HPF (0-5)
[2023-08-08] MEDS: Hum Prothrombin Cplx(PCC)4Fact 2,000 UNIT in Container,Empty 0 ML 480 UNIT IV (17:14)
[2023-08-08 17:29] VITALS: BP 133/59; PULSE 82; RESP 20; TEMP 36.6; O2SAT 98
[2023-08-08] MEDS: Pantoprazole Sodium 40 MG/10 ML VIAL IVPUSH (17:33)
--- NOTE | 2023-08-08 17:36 | PC.NURSE ---
medications administered per provider order. provider speaking w/ pt at this time. pt aware of plan of car at this time. tech drawing labs at this time. call tello placed within reach.
--- NOTE | 2023-08-08 18:15 | PM.IMHP ---
History of Present Illness Date of Service: 08/08/23 Chief Complaint: Shortness of breath and rectal bleed An 78-year-old female with a significant past medical history including heart failure with preserved ejection fraction (HFpEF), chronic obstructive pulmonary disease (COPD) requiring home oxygen therapy (4 liters via nasal cannula), hypertension (HTN), [id number] respiratory failure with elevated carbon dioxide levels (hypercapnia), non-compliance with continuous positive airway pressure (CPAP) therapy for obstructive sleep apnea (WOJCIECH), emphysema, cor pulmonale, cholecystitis, depression, and atrial fibrillation treated with Xarelto, presents to the emergency department. She complains of worsening shortness of breath over the past several days and has noticed blood in her stool. In May, her hematocrit measured at 41, which has now declined to 34. INR is 2. Her oxygen saturation was 85% on room air and improved to 93% with the administration of 4 liters of oxygen. A rectal examination revealed melena. She received Kcentra, and the gastroenterology team recommends intravenous proton pump inhibitor (PPI) therapy and keeping her nil per os (NPO). Currently, she is not experiencing any respiratory distress. Review of Systems Review of Systems: SOB, bloody bowel moment Yes all other systems are reviewed and are negative [facility] Medical History (Updated 08/08/23 @ 17:14 by Pelon Mcneil MD) History of non-ST elevation myocardial infarction (NSTEMI) (~09/2022) Osteoporosis Leukocytosis Dilated cbd, acquired Cholecystitis Gallstone Pancreatitis WOJCIECH (obstructive sleep apnea) Acute and chronic respiratory failure with hypercapnia Diastolic CHF with preserved left ventricular function, NYHA class 2 Cor pulmonale, chronic Emphysema lung Supplemental oxygen dependent COPD (chronic obstructive pulmonary disease) Family History (Updated 05/19/23 @ 09:52 by Liam Harris MD) Father Myocardial infarction Surgical History (Updated 06/09/23 @ 14:36 by Gretta Thomas PA-C) History of squamous cell carcinoma excision Social History Household Members: Children Housing: House Do you presently have visiting nurse or other home services: Yes Unable to assess alcohol history related to: Unknown Alcohol intake: never Patient Tobacco Use Status: Former Tobacco user Tobacco use type: Cigarette Smoked in Last 30 Days: No Patient Interested in Nicotine Replacement: No Patient Given Instructions on How to Stop Smoking: No Second Hand Smoke Exposure: No Use of substances other than those prescribed or required for medical reasons: No Substance Use Type: Unknown Currently Displaying Signs/Symptoms of Drug Intoxication Withdrawal: No Any prior treatment program specific to substance use: No Have you been hit, kicked, punched, or otherwise hurt by someone within the past year? If so, by whom?: No Do you feel safe in your current relationship?: Yes Is there a partner from a previous relationship who is making you feel unsafe now?: No Are you made to feel afraid or neglected: No Spiritual Healthcare Practices: [employer] Advance Directives: No Advance Directives Information Provided: Yes Advance Directives on File: No Do you have thoughts of harming others: None Do you have a plan to hurt others: No Plan Recently lost weight without trying: No How much weight loss: Not applicable Eating poorly because of decreased appetite: No Nutrition screen score: 0 Nutrition Risks: No Nutritional Risk Patient : No : No Poor oral hygiene: No service: No Current occupational status: retired [email or web address] Allergies Allergy/AdvReac Type Severity Reaction Status Date / Time ceftriaxone [From Rocephin] Allergy Unknown Unknown Verified 08/08/23 14:37 vancomycin Allergy Unknown itch, Verified 08/08/23 14:37 rash, hives Active Medications: Current Medications Lactated Ringer's (Lr) 1,000 mls @ 125 mls/hr IV .Q8H KALPESH Stop: 08/08/23 23:14 Last Admin: 08/08/23 16:34 Dose: 125 mls/hr Home Medications Medication Instructions Recorded Confirmed Last Taken Type atorvastatin 20 mg tablet 20 mg PO BEDTIME 10/13/20 08/08/23 08/07/23 History omeprazole 20 mg capsule,delayed 20 mg PO DAILY@0630 10/13/20 08/08/23 08/08/23 History release albuterol sulfate 2.5 mg/3 mL 1 vial inhalation Q4H PRN 01/07/22 08/08/23 08/08/23 History (0.083 %) solution for nebulization Shortness Of Breath albuterol sulfate 90 mcg/actuation 2 puff inhalation QID PRN 01/07/22 08/08/23 01/07/22 History aerosol inhaler Shortness Of Breath docusate sodium 100 mg capsule 100 mg PO BID Constipation 01/07/22 08/08/23 08/08/23 History metoprolol tartrate 25 mg tablet 12.5 mg PO BID 01/07/22 08/08/23 08/08/23 History B-complex with vitamin C 1 tab PO DAILY@1500 10/04/22 08/08/23 08/08/23 History aspirin 81 mg tablet,delayed 81 mg PO MOWEFR@2100 10/04/22 08/08/23 08/07/23 History release buspirone 5 mg tablet 5 tab PO BID Anxiety 10/04/22 08/08/23 08/08/23 History cholecalciferol (vitamin D3) 10 10 mcg PO DAILY 10/04/22 08/08/23 08/08/23 History mcg (400 unit) tablet (Vitamin D3) lutein 20 mg capsule 20 mg PO DAILY 10/04/22 08/08/23 08/08/23 History melatonin 5 mg tablet 5 mg PO BEDTIME PRN Insomnia 10/04/22 08/08/23 05/17/23 History tramadol 50 mg tablet 1 tab PO BID PRN Pain 10/04/22 08/08/23 05/18/23 History buspirone 5 mg tablet 5 mg PO DAILY PRN Anxiety 08/08/23 08/08/23 Unknown History hydroxyzine pamoate 25 mg capsule 25 mg PO DAILY PRN anxiety 08/08/23 08/08/23 Unknown History nystatin 100,000 unit/gram topical 1 appl topical BID PRN Rash 08/08/23 08/08/23 Unknown History powder omega [id number]-[id number]-fish oil 1,000 mg 1 cap PO DAILY 08/08/23 08/08/23 08/08/23 History (120 mg-180 mg) capsule (Fish Oil) ropinirole 1 mg tablet 0.5 - 1 mg PO BEDTIME PRN Restless 08/08/23 08/08/23 Unknown History Leg(S) torsemide 20 mg tablet 40 mg PO DAILY 08/08/23 08/08/23 08/08/23 History vitamin E (dl, acetate) 400 unit 400 unit PO DAILY 08/08/23 08/08/23 Unknown History chewable tablet Physical Exam Vital Signs and Narrative: Vital Signs: Last Vital Signs Temp 97.9 F 08/08/23 17:29 Pulse 82 08/08/23 17:29 Resp 20 08/08/23 17:29 BP 133/59 L 08/08/23 17:29 Pulse Ox 98 08/08/23 17:29 O2 Del Method Nasal Cannula 08/08/23 17:29 O2 Flow Rate 5 08/08/23 17:29 BMI result Body Mass Index 41.5 Const: Other: Constitutional: Alert, in no distress, overweight. Mental Status: Oriented to person, place and time. Eyes: Pupils are equal, round and reactive to light. Ear, Nose and Throat: Oropharynx clear, mucous membranes moist. Respiratory: Clear to auscultation. No wheezing, rales or rhonchi. Cardiovascular: S1 S2 regular. No murmurs, rubs or gallops. Gastrointestinal: Abdomen soft, non-tender, non-distended. Normal bowel sounds.?rectal exam performed by ED provider with evidence of melana Neurologic: Cranial nerves II-XII grossly intact. No focal neurological deficits. Moves all extremities spontaneously.? Skin: No rashes or lesions.? Musculoskeletal: No cyanosis or clubbing. Psychiatric: Normal mood and affect? Results Labs 08/09/23 06:22 08/08/23 15:50 Labs: Laboratory Results - last 24 hr 08/08/23 08/08/23 08/08/23 15:50 16:01 16:11 MCV 100.0 H MCH 29.5 MCHC 29.5 L RDW 14.1 Plt Count 177 MPV 11.4 Immature Gran % (Auto) 0.6 H Neut % (Auto) 72.6 Lymph % (Auto) 15.4 L [place] % (Auto) 10.1 Eos % (Auto) 0.9 Baso % (Auto) 0.4 Lymph # (Auto) 1.4 [place] # (Auto) 0.9 Eos # (Auto) 0.1 Baso # (Auto) 0.0 Abs Immat Gran (auto) 0.06 H Absolute Neuts (auto) 6.7 Absolute Nucleated RBC 0.020 H Nucleated RBC % (auto) 0.2 PT 24.0 H D INR 2.0 H APTT 37.5 H VBG pH VBG pCO2 VBG pO2 VBG HCO3 VBG O2 Saturation VBG Base Excess Anion Gap 15 Estim Creat Clear Calc 68.4 Estimated GFR > 60 Random Glucose 140 H Lactic Acid 1.4 Calcium 10.0 Total Bilirubin 0.4 AST 26 ALT 15 Alkaline Phosphatase 76 B-Natriuretic Peptide 488 H Total Protein 7.5 Albumin 3.8 Lipase 11 Urine Color Yellow Urine Appearance Clear Urine pH 5.5 Ur Specific [place] 1.010 Urine Protein Negative Urine Glucose (UA) Negative Urine Ketones Negative Urine Blood Small (1+) H Urine Nitrite Negative Ur Leukocyte Esterase Negative Urine RBC 0-2 Urine WBC 0-5 Ur Squamous Epith Cells 6-10 Urine Bacteria 1+ Hyaline Casts 6-10 Stool Occult Blood POSITIVE Blood Type A Positive Antibody Screen NEGATIVE 08/08/23 16:18 MCV MCH MCHC RDW Plt Count MPV Immature Gran % (Auto) Neut % (Auto) Lymph % (Auto) [place] % (Auto) Eos % (Auto) Baso % (Auto) Lymph # (Auto) [place] # (Auto) Eos # (Auto) Baso # (Auto) Abs Immat Gran (auto) Absolute Neuts (auto) Absolute Nucleated RBC Nucleated RBC % (auto) PT INR APTT VBG pH 7.54 H VBG pCO2 61 VBG pO2 60 VBG HCO3 53 H VBG O2 Saturation 94.0 VBG Base Excess 26.7 Anion Gap Estim Creat Clear Calc Estimated GFR Random Glucose Lactic Acid Calcium Total Bilirubin AST ALT Alkaline Phosphatase B-Natriuretic Peptide Total Protein Albumin Lipase Urine Color Urine Appearance Urine pH Ur Specific [place] Urine Protein Urine Glucose (UA) Urine Ketones Urine Blood Urine Nitrite Ur Leukocyte Esterase Urine RBC Urine WBC Ur Squamous Epith Cells Urine Bacteria Hyaline Casts Stool Occult Blood Blood Type Antibody Screen Imaging Radiologist's Impressions: Impressions Chest X-Ray 08/08/23 15:10 IMPRESSION: Moderate cardiomegaly with mild pulmonary vascular congestion. Abdomen/Pelvis CT 08/08/23 16:29 IMPRESSION: Cholelithiasis. Diffuse diverticulosis without evidence for acute diverticulitis. Stable apparent cystic structure along the pancreatic head. Trace bilateral pleural effusions with trace dependent pericardial effusion with bibasilar atelectatic change. No acute intra-abdominal process. Fleischner guidelines were followed. Assessment and Plan (1) Chronic anticoagulation: Status: Acute (2) Anemia: Status: Acute (3) Acute lower gastrointestinal bleeding: Status: Acute Plan 78 F with AFIB on xarelto here with SOB and melana and acute GIB GI bleed with acute blood loss anemia on Xarelto, given Kcentra. Stop Xarelto, Serial H/H. IV PPI, GI consult, NPO after midnight Acute on chronic HFpEF exacerbation Metabolic alkalosis--Diamox WOJCIECH--Non compliant with CPAP, will order one COPD Not in acute exacerbation Continue home inhalers GERD IV PPI as above Obesity class 3 Weight loss encouraged Full Code DVT Prophylaxis: compression device Need for inpatient: Acute gi bleed on xarelto, with SOB and need GI work up and treatment Time Spent With Patient Time: Total time managing care of this patient today ____ minutes. Quality Stroke Does the patient have a stroke diagnosis?: No VTE Prior VTE?: No VTE Risk Level:: Medical - moderate - high VTE Device Contraindication: N/A - Device Ordered VTE Drug Contraindication: Treatment Not Tolerated
--- NOTE | 2023-08-08 18:16 | PC.NURSE ---
this RN was unaware of delay in draw from phlebotomy. update APTT drawn from central line and sent to lab at this time. pt has family bedside for support. tech took POC = 262mg/dL - will administer insulin per sliding scale. pt still verbalizing no pain at this time. resting comfortably in no apparent distress. respirations remain even and unlabored.
--- NOTE | 2023-08-08 18:36 | PC.NURSE ---
afib on the general matcher. pt states that she no longer feels SOB at this time. pt able to speak in full, clear sentences w/o difficulty. no WOB shown. pt verbalizing no pain at this time. resting comfortably in no apparent distress. respirations even and unlabored. pt aware of plan of care at this time. call tello placed within reach.
--- NOTE | 2023-08-08 18:39 | PHA.MEDREC ---
Pharmacy Consult ? Medication Reconciliation Pharmacy has completed the medication reconciliation. Spoke with patient;s daughter Ailyn to confirm medications. Report buspar is 1 tab BID and 1 prn. Reports patient only takes 1/2 tablet of ropinoril as needed and then can take the additional half tablet later. Digoxin is every other day and receive dose yesterday. Mavis Mckeon, PharmD
[2023-08-08 18:46] LABS: Influenza A PCR NEGATIVE (Negative); Influenza B PCR NEGATIVE (Negative); Resp Syncy Virus RNA Qual PCR NEGATIVE (Negative); SARS COV2 PCR INHOUSE NEGATIVE (Negative)
[2023-08-08 19:26] LABS: Troponin-I High Sensitivity 93.4 ng/L (<3.5-17.0)
[2023-08-08 19:46] VITALS: BP 117/53; PULSE 91; RESP 18; TEMP 36.6; O2SAT 94
[2023-08-08 20:00] VITALS: BP 155/83; PULSE 114; RESP 20; TEMP 36.4; O2SAT 95
--- NOTE | 2023-08-08 21:15 | PC.NURSE ---
called to give report with no success, will try again,
[2023-08-08 22:17] VITALS: BMI 41.6
[2023-08-08] MEDS: Atorvastatin Calcium 20 MG TABLET PO (22:48)
[2023-08-08] MEDS: guaiFENesin LA 600 MG TAB.ER.12H PO (22:48)
[2023-08-08] MEDS: Metoprolol Tartrate 12.5 MG HALFTAB PO (22:49)
[2023-08-08] MEDS: Docusate Sodium 100 MG CAPSULE PO (22:50)
[2023-08-08] MEDS: busPIRone HCl 5 MG TABLET 25 MG PO (22:51)
[2023-08-08] MEDS: 0.9 % Sodium Chloride Flush 3 ML SYRINGE IVFLUSH (22:51)
[2023-08-09] VITALS (8 sets, daily range): BP systolic 108–143; BP diastolic 50–89; PULSE 71–115; RESP 16–20; TEMP 36.1–37.1; O2SAT 90–95
[2023-08-09] MEDS: Pantoprazole Sodium 40 MG/10 ML VIAL IVPUSH ×2 (05:22→15:58)
[2023-08-09 07:07] LABS: Hematocrit 32.4 % (37.0-47.0); Hemoglobin 9.6 g/dl (12.0-16.0); Mean Corpuscular HGB Conc 29.6 g/dl (31.0-35.0); Mean Corpuscular Volume 97.9 fL (80.0-98.0); Mean Platelet Volume 11.7 fL (9.4-12.3); NRBC Pct Auto 0.2 /100WBC (0.0-0.2); Platelet Count 166 X10*3/uL (160-400); Red Blood Count 3.31 X10*6/uL (4.20-5.50); Red Cell Distribution Width 14.1 % (11.0-16.0); White Blood Count 10.6 X10*3/uL (4.8-10.8)
[2023-08-09] MEDS: Fluticasone/Vilanterol 100/25 BLST.W.DEV 1 PUFF INHALE (07:43)
[2023-08-09] MEDS: Metoprolol Tartrate 12.5 MG HALFTAB PO ×2 (08:49→20:29)
[2023-08-09] MEDS: Torsemide 20 MG TABLET 40 MG PO (08:50)
[2023-08-09] MEDS: Digoxin 0.125 MG TABLET PO (08:50)
[2023-08-09] MEDS: acetaZOLAMIDE 250 MG TABLET PO ×2 (08:51→20:30)
[2023-08-09] MEDS: dilTIAZem HCL CD 180 MG CAP.ER.24H PO (08:51)
[2023-08-09] MEDS: guaiFENesin LA 600 MG TAB.ER.12H PO ×2 (08:52→20:30)
[2023-08-09] MEDS: busPIRone HCl 5 MG TABLET PO ×2 (08:52→20:29)
[2023-08-09] MEDS: Docusate Sodium 100 MG CAPSULE PO ×2 (08:52→20:29)
[2023-08-09] MEDS: Cholecalciferol (Vitamin D3) 10 MCG TABLET PO (08:52)
[2023-08-09] MEDS: 0.9 % Sodium Chloride Flush 3 ML SYRINGE IVFLUSH ×3 (08:57→20:34)
--- NOTE | 2023-08-09 10:30 | HO.PM.IMPN ---
Subjective Subjective Date of Service: 08/09/23 Interval History: f/u on rectal bleed, acute blood loss anemia and sob presently not sob, no bleeding reported, H/H is stable. Physical Exam Vital Signs: Vital Signs: Last Vital Signs Temp 97.9 F 08/09/23 07:55 Pulse 71 08/09/23 07:55 Resp 18 08/09/23 07:55 BP 117/62 08/09/23 07:55 Pulse Ox 93 08/09/23 07:55 O2 Del Method Nasal Cannula 08/09/23 07:55 O2 Flow Rate 4 08/09/23 07:55 BMI result Body Mass Index 41.6 Objective Data Active Medications Acetaminophen (Acetaminophen 325 Mg Tablet) 650 mg PO Q6H PRN PRN Reason: Pain, Mild (Pain Scale 1-3) Acetazolamide (Acetazolamide 250 Mg Tablet) 250 mg PO BID [facility] Last Admin: 08/09/23 08:51 Dose: 250 mg Documented By: ASHLEIGH Albuterol Sulfate (Albuterol Sulfate (0.083%) 2.5 Mg/3 Ml Vial.Neb) 2.5 mg INHALE Q4H PRN PRN Reason: Shortness Of Breath Albuterol Sulfate (Albuterol Sulfate 90 Mcg 8 Gm Inhaler) 2 puff INHALE QID PRN PRN Reason: Shortness Of Breath Atorvastatin Calcium (Atorvastatin Calcium 20 Mg Tablet) 20 mg PO BEDTIME [facility] Last Admin: 08/08/23 22:48 Dose: 20 mg Documented By: SOPHIA Buspirone HCl (Buspirone Hcl 5 Mg Tablet) 5 mg PO DAILY PRN PRN Reason: Anxiety Buspirone HCl (Buspirone Hcl 5 Mg Tablet) 5 mg PO BID [facility] Last Admin: 08/09/23 08:52 Dose: 5 mg Documented By: ASHLEIGH Digoxin (Digoxin 0.125 Mg Tablet) 0.125 mg PO Q2D@0900 [facility] Last Admin: 08/09/23 08:50 Dose: 0.125 mg Documented By: ASHLEIGH Diltiazem HCl (Diltiazem Hcl Cd 180 Mg Cap.Er.24h) 180 mg PO DAILY [facility]; Protocol Last Admin: 08/09/23 08:51 Dose: 180 mg Documented By: ASHLEIGH Docusate Sodium (Docusate Sodium 100 Mg Capsule) 100 mg PO BID [facility] Last Admin: 08/09/23 08:52 Dose: 100 mg Documented By: ASHLEIGH Fluticasone/Vilanterol (Fluticasone/Vilanterol 100/25 Blst.W.Dev) 1 puff INHALE RDAILY [facility] Last Admin: 08/09/23 07:43 Dose: 1 puff Documented By: SHAYLA Guaifenesin (Guaifenesin La 600 Mg Tab.Er.12h) 600 mg PO BID [facility] Last Admin: 08/09/23 08:52 Dose: 600 mg Documented By: ASHLEIGH Hydroxyzine HCl (Hydroxyzine Hcl 25 Mg Tablet) 25 mg PO DAILY PRN PRN Reason: anxiety Melatonin (Melatonin 3 Mg Tablet) 3 mg PO BEDTIME PRN PRN Reason: Insomnia Metoprolol Tartrate (Metoprolol Tartrate 12.5 Mg Halftab) 12.5 mg PO BID [facility]; Protocol Last Admin: 08/09/23 08:49 Dose: 12.5 mg Documented By: ASHLEIGH Multivitamins/Vitamin C (Multivitamin Tablet) 1 tab PO DAILY@1500 KALPESH Nystatin (Nystatin Powder 15 Gm Bottle) 1 appl TOPICAL BID PRN; Protocol PRN Reason: Rash Ondansetron HCl (Ondansetron Hcl 4 Mg/2 Ml Vial) 4 mg IVPUSH Q8H PRN PRN Reason: Nausea and Vomiting Pantoprazole Sodium (Pantoprazole Sodium 40 Mg/10 Ml Vial) 40 mg IVPUSH BID@0630,1630 [facility] Last Admin: 08/09/23 05:28 Dose: Not Given Documented By: LYN Non-Admin Reason: Duplicate Order Ropinirole HCl (Ropinirole Hcl 0.5 Mg Tablet) 0.5 mg PO BEDTIME PRN PRN Reason: Restless Leg(S) Sodium Chloride (0.9 % Sodium Chloride Flush 3 Ml Syringe) 3 ml IVFLUSH QSHIFT [facility] Last Admin: 08/09/23 08:57 Dose: 3 ml Documented By: ASHLEIGH Torsemide (Torsemide 20 Mg Tablet) 40 mg PO DAILY [facility]; Protocol Last Admin: 08/09/23 08:50 Dose: 40 mg Documented By: ASHLEIGH Vitamin D (Cholecalciferol (Vitamin D3) 10 Mcg Tablet) 10 mcg PO DAILY [facility] Last Admin: 08/09/23 08:52 Dose: 10 mcg Documented By: ASHLEIGH Vitamin E (Vitamin E (Dl,Tocopheryl Acet) 180 Mg (400 Unit) Capsule) 180 mg PO DAILY [facility] Last Admin: 08/09/23 08:53 Dose: Not Given Documented By: ASHLEIGH Non-Admin Reason: Patient Refused Labs 08/09/23 06:22 08/08/23 15:50 Labs: Laboratory Results - last 24 hr 08/08/23 08/08/23 08/08/23 15:50 16:01 16:11 MCV 100.0 H MCH 29.5 MCHC 29.5 L RDW 14.1 Plt Count 177 MPV 11.4 Immature Gran % (Auto) 0.6 H Neut % (Auto) 72.6 Lymph % (Auto) 15.4 L [place] % (Auto) 10.1 Eos % (Auto) 0.9 Baso % (Auto) 0.4 Lymph # (Auto) 1.4 [place] # (Auto) 0.9 Eos # (Auto) 0.1 Baso # (Auto) 0.0 Abs Immat Gran (auto) 0.06 H Absolute Neuts (auto) 6.7 Absolute Nucleated RBC 0.020 H Nucleated RBC % (auto) 0.2 Hold Purple Top PT 24.0 H D INR 2.0 H APTT 37.5 H VBG pH VBG pCO2 VBG pO2 VBG HCO3 VBG O2 Saturation VBG Base Excess Anion Gap 15 Estim Creat Clear Calc 68.4 Estimated GFR > 60 Random Glucose 140 H Lactic Acid 1.4 Calcium 10.0 Total Bilirubin 0.4 AST 26 ALT 15 Alkaline Phosphatase 76 B-Natriuretic Peptide 488 H Total Protein 7.5 Albumin 3.8 Lipase 11 Urine Color Yellow Urine Appearance Clear Urine pH 5.5 Ur Specific [place] 1.010 Urine Protein Negative Urine Glucose (UA) Negative Urine Ketones Negative Urine Blood Small (1+) H Urine Nitrite Negative Ur Leukocyte Esterase Negative Urine RBC 0-2 Urine WBC 0-5 Ur Squamous Epith Cells 6-10 Urine Bacteria 1+ Hyaline Casts 6-10 Stool Occult Blood POSITIVE Influenza Type A (PCR) NEGATIVE Influenza Type B (PCR) NEGATIVE RSV RNA Qual (PCR) NEGATIVE SARS-CoV-2 RNA (RT-PCR) NEGATIVE Blood Type A Positive Antibody Screen NEGATIVE 08/08/23 08/09/23 16:18 06:22 MCV 97.9 MCH 29.0 MCHC 29.6 L RDW 14.1 Plt Count 166 MPV 11.7 Immature Gran % (Auto) Neut % (Auto) Lymph % (Auto) [place] % (Auto) Eos % (Auto) Baso % (Auto) Lymph # (Auto) [place] # (Auto) Eos # (Auto) Baso # (Auto) Abs Immat Gran (auto) Absolute Neuts (auto) Absolute Nucleated RBC 0.020 H Nucleated RBC % (auto) 0.2 Hold Purple Top SEE NOTE PT INR APTT VBG pH 7.54 H VBG pCO2 61 VBG pO2 60 VBG HCO3 53 H VBG O2 Saturation 94.0 VBG Base Excess 26.7 Anion Gap Estim Creat Clear Calc Estimated GFR Random Glucose Lactic Acid Calcium Total Bilirubin AST ALT Alkaline Phosphatase B-Natriuretic Peptide Total Protein Albumin Lipase Urine Color Urine Appearance Urine pH Ur Specific [place] Urine Protein Urine Glucose (UA) Urine Ketones Urine Blood Urine Nitrite Ur Leukocyte Esterase Urine RBC Urine WBC Ur Squamous Epith Cells Urine Bacteria Hyaline Casts Stool Occult Blood Influenza Type A (PCR) Influenza Type B (PCR) RSV RNA Qual (PCR) SARS-CoV-2 RNA (RT-PCR) Blood Type Antibody Screen Assessment and Plan (1) Chronic anticoagulation: Status: Acute (2) Anemia: Status: Acute (3) Acute lower gastrointestinal bleeding: Status: Acute Plan 78 F with AFIB on xarelto here with SOB and melana and acute GIB GI bleed with acute blood loss anemia on Xarelto, given Kcentra. Stopped Xarelto, Not signficant shift in H/H since yesterday, continue. IV PPI, GI consult, liquid diet today since I don't think a procedure is planned Acute on chronic HFpEF exacerbation--continue Torsemide Metabolic alkalosis--Diamox WOJCIECH--Non compliant with CPAP, will order one COPD Not in acute exacerbation Continue home inhalers GERD IV PPI as above Obesity class 3 Weight loss encouraged Full Code DVT Prophylaxis: compression device Need for inpatient: Acute gi bleed on xarelto, with SOB and need GI work up and treatment Time Spent With Patient Time: Total time managing care of this patient today ____ minutes. Quality Stroke Does the patient have a stroke diagnosis?: No VTE Prior VTE?: No VTE Risk Level:: Medical - moderate - high VTE Device Contraindication: N/A - Device Ordered VTE Drug Contraindication: Treatment Not Tolerated
--- NOTE | 2023-08-09 10:39 | MHC.CM.PN ---
IMM 08/09. Pt lives at home with her daughters who are her PHARMACEUTICAL ANALYST's, she has home O2 at 4L/min with [facility], and uses a walker. Pt previously had [facility] and [facility] but is no longer active with their services. Returning home with her daughter's is the goal, and her daughter's will transport her home. HCP on file and verified. PCP: Dr. Clint Tong
[2023-08-09] MEDS: Multivitamin TABLET 1 TAB PO (15:59)
[2023-08-09] MEDS: Atorvastatin Calcium 20 MG TABLET PO (20:29)
[2023-08-10 03:33] VITALS: BP 134/69; PULSE 97; RESP 18; TEMP 37; O2SAT 92
[2023-08-10] MEDS: Acetaminophen 325 MG TABLET 650 MG PO (05:06)
[2023-08-10] MEDS: Pantoprazole Sodium 40 MG/10 ML VIAL IVPUSH ×2 (05:06→16:27)
[2023-08-10 07:09] VITALS: BP 127/59; PULSE 107; RESP 18; TEMP 36.7; O2SAT 92
[2023-08-10] MEDS: Vitamin E (Dl,Tocopheryl Acet) 180 MG (400 UNIT) CAPSULE PO (08:41)
[2023-08-10] MEDS: Metoprolol Tartrate 12.5 MG HALFTAB PO ×2 (08:41→20:51)
[2023-08-10] MEDS: Torsemide 20 MG TABLET 40 MG PO (08:41)
[2023-08-10] MEDS: Docusate Sodium 100 MG CAPSULE PO ×2 (08:42→20:52)
[2023-08-10] MEDS: acetaZOLAMIDE 250 MG TABLET PO ×2 (08:42→20:51)
[2023-08-10] MEDS: guaiFENesin LA 600 MG TAB.ER.12H PO ×2 (08:42→20:52)
[2023-08-10] MEDS: Cholecalciferol (Vitamin D3) 10 MCG TABLET PO (08:42)
[2023-08-10] MEDS: dilTIAZem HCL CD 180 MG CAP.ER.24H PO (08:42)
[2023-08-10] MEDS: busPIRone HCl 5 MG TABLET PO ×2 (08:42→20:52)
[2023-08-10] MEDS: 0.9 % Sodium Chloride Flush 3 ML SYRINGE IVFLUSH ×2 (08:54→16:27)
[2023-08-10 11:10] VITALS: BP 104/63; PULSE 88; RESP 24; TEMP 36.4; O2SAT 95
--- NOTE | 2023-08-10 11:49 | PM.GICN ---
History of Present Illness Data of Consult Service Date: 08/10/23 Requesting physician: Saul Gonzalez Primary Care Provider: Clint Tong MD HPI Reason for consult: Lower GI bleed, on Xarelto 78 YF with hx of heart failure with preserved ejection fraction (HFpEF), chronic obstructive pulmonary disease (COPD) requiring home oxygen therapy (4 liters via nasal cannula), hypertension (HTN), [id number] respiratory failure with elevated carbon dioxide levels (hypercapnia), non-compliance with continuous positive airway pressure (CPAP) therapy for obstructive sleep apnea (WOJCIECH), emphysema, cor pulmonale, cholecystitis, depression, and atrial fibrillation treated with Xarelto, [place] [facility] [place] [facility] [place] with worsening shortness of breath over the past several days. Pt also complained of intermittent rectal bleeding for the past week - blood was dark burgundy in color . Pt also complains of mild abdominal discomfort and intermittent constipation. Pt reports having some rectal bleeding this morning and none since. She admits to intentional wt loss of 9 lbs (wt decreased from 260 to 251 lbs) Pt admits to smoking x 60 yrs and quitted 3 years ago. She has been on Home O2 since Oct, 2022. Pt is and lives with her 2 daughters, Joselyn and Bethayn who take care of her. 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 Pt reports having a colonoscopy ? [facility] 8 to 10 yrs ago. Labs in the ED showed hct of 34% (decreased from 41 in 05/2023). INR was 2. Repeat labs today showed H & H of 10.7 and 35.5 - stable without blood transfusions Her oxygen saturation was 85% on room air and improved to 93% with the administration of 4 liters of oxygen. A rectal examination revealed melena. She received Kcentra, and intravenous proton pump inhibitor (PPI) therapy. 08/08/[address] SCAN SHOWED: Cholelithiasis. Diffuse diverticulosis without evidence for acute diverticulitis. Stable apparent cystic structure along the pancreatic head. Trace bilateral pleural effusions with trace dependent pericardial effusion with bibasilar atelectatic change. No acute intra-abdominal process. Review of Systems Review of Systems: SOB, bloody bowel moment Yes all other systems are reviewed and are negative PMFSH Past Medical History Medical History (Updated 08/19/23 @ 00:02 by Rodger Canchola) History of non-ST elevation myocardial infarction (NSTEMI) (~09/2022) Osteoporosis Leukocytosis Dilated cbd, acquired Cholecystitis Gallstone Pancreatitis WOJCIECH (obstructive sleep apnea) Acute and chronic respiratory failure with hypercapnia Diastolic CHF with preserved left ventricular function, NYHA class 2 Cor pulmonale, chronic Emphysema lung Supplemental oxygen dependent COPD (chronic obstructive pulmonary disease) Family History Family History (Updated 05/19/23 @ 09:52 by Liam Harris MD) Father Myocardial infarction Surgical History Surgical History (Updated 06/09/23 @ 14:36 by Gretta Thomas PA-C) History of squamous cell carcinoma excision Social History Social History Household Members: Children Housing: House Do you presently have visiting nurse or other home services: Yes Unable to assess alcohol history related to: Unknown Alcohol intake: never Patient Tobacco Use Status: Former Tobacco user Tobacco use type: Cigarette Second Hand Smoke Exposure: No Substance Use Type: Unknown service: No Current occupational status: retired [employer] Allergies Allergy/AdvReac Type Severity Reaction Status Date / Time ceftriaxone [From Rocephin] Allergy Unknown Unknown Verified 08/08/23 14:37 vancomycin Allergy Unknown itch, Verified 08/08/23 14:37 rash, hives Active Medications: Current Medications Acetaminophen (Acetaminophen 325 Mg Tablet) 650 mg PO Q6H PRN PRN Reason: Pain, Mild (Pain Scale 1-3) Last Admin: 08/10/23 05:06 Dose: 650 mg Acetazolamide (Acetazolamide 250 Mg Tablet) 250 mg PO BID [facility] Last Admin: 08/10/23 08:42 Dose: 250 mg Albuterol Sulfate (Albuterol Sulfate (0.083%) 2.5 Mg/3 Ml Vial.Neb) 2.5 mg INHALE Q4H PRN PRN Reason: Shortness Of Breath Albuterol Sulfate (Albuterol Sulfate 90 Mcg 8 Gm Inhaler) 2 puff INHALE QID PRN PRN Reason: Shortness Of Breath Atorvastatin Calcium (Atorvastatin Calcium 20 Mg Tablet) 20 mg PO BEDTIME [facility] Last Admin: 08/09/23 20:29 Dose: 20 mg Buspirone HCl (Buspirone Hcl 5 Mg Tablet) 5 mg PO DAILY PRN PRN Reason: Anxiety Buspirone HCl (Buspirone Hcl 5 Mg Tablet) 5 mg PO BID [facility] Last Admin: 08/10/23 08:42 Dose: 5 mg Digoxin (Digoxin 0.125 Mg Tablet) 0.125 mg PO Q2D@0900 [facility] Last Admin: 08/09/23 08:50 Dose: 0.125 mg Diltiazem HCl (Diltiazem Hcl Cd 180 Mg Cap.Er.24h) 180 mg PO DAILY [facility]; Protocol Last Admin: 08/10/23 08:42 Dose: 180 mg Docusate Sodium (Docusate Sodium 100 Mg Capsule) 100 mg PO BID [facility] Last Admin: 08/10/23 08:42 Dose: 100 mg Fluticasone/Vilanterol (Fluticasone/Vilanterol 100/25 Blst.W.Dev) 1 puff INHALE RDAILY [facility] Last Admin: 08/10/23 08:20 Dose: Not Given Guaifenesin (Guaifenesin La 600 Mg Tab.Er.12h) 600 mg PO BID [facility] Last Admin: 08/10/23 08:42 Dose: 600 mg Hydroxyzine HCl (Hydroxyzine Hcl 25 Mg Tablet) 25 mg PO DAILY PRN PRN Reason: anxiety Melatonin (Melatonin 3 Mg Tablet) 3 mg PO BEDTIME PRN PRN Reason: Insomnia Metoprolol Tartrate (Metoprolol Tartrate 12.5 Mg Halftab) 12.5 mg PO BID [facility]; Protocol Last Admin: 08/10/23 08:41 Dose: 12.5 mg Multivitamins/Vitamin C (Multivitamin Tablet) 1 tab PO DAILY@1500 [facility] Last Admin: 08/09/23 15:59 Dose: 1 tab Nystatin (Nystatin Powder 15 Gm Bottle) 1 appl TOPICAL BID PRN; Protocol PRN Reason: Rash Ondansetron HCl (Ondansetron Hcl 4 Mg/2 Ml Vial) 4 mg IVPUSH Q8H PRN PRN Reason: Nausea and Vomiting Pantoprazole Sodium (Pantoprazole Sodium 40 Mg/10 Ml Vial) 40 mg IVPUSH BID@0630,1630 [facility] Last Admin: 08/10/23 05:06 Dose: 40 mg Ropinirole HCl (Ropinirole Hcl 0.5 Mg Tablet) 0.5 mg PO BEDTIME PRN PRN Reason: Restless Leg(S) Sodium Chloride (0.9 % Sodium Chloride Flush 3 Ml Syringe) 3 ml IVFLUSH QSHIFT [facility] Last Admin: 08/10/23 08:54 Dose: 3 ml Torsemide (Torsemide 20 Mg Tablet) 40 mg PO DAILY [facility]; Protocol Last Admin: 08/10/23 08:41 Dose: 40 mg Vitamin D (Cholecalciferol (Vitamin D3) 10 Mcg Tablet) 10 mcg PO DAILY [facility] Last Admin: 08/10/23 08:42 Dose: 10 mcg Vitamin E (Vitamin E (Dl,Tocopheryl Acet) 180 Mg (400 Unit) Capsule) 180 mg PO DAILY [facility] Last Admin: 08/10/23 08:41 Dose: 180 mg Home Medications Medication Instructions Recorded Confirmed Last Taken Type atorvastatin 20 mg tablet 20 mg PO BEDTIME 10/13/20 08/08/23 08/07/23 History omeprazole 20 mg capsule,delayed 20 mg PO DAILY@0630 10/13/20 08/08/23 08/08/23 History release albuterol sulfate 2.5 mg/3 mL 1 vial inhalation Q4H PRN 01/07/22 08/08/23 08/08/23 History (0.083 %) solution for nebulization Shortness Of Breath albuterol sulfate 90 mcg/actuation 2 puff inhalation QID PRN 01/07/22 08/08/23 01/07/22 History aerosol inhaler Shortness Of Breath docusate sodium 100 mg capsule 100 mg PO BID Constipation 01/07/22 08/08/23 08/08/23 History metoprolol tartrate 25 mg tablet 12.5 mg PO BID 01/07/22 08/08/23 08/08/23 History B-complex with vitamin C 1 tab PO DAILY@1500 10/04/22 08/08/23 08/08/23 History aspirin 81 mg tablet,delayed 81 mg PO MOWEFR@2100 10/04/22 08/08/23 08/07/23 History release buspirone 5 mg tablet 5 tab PO BID Anxiety 10/04/22 08/08/23 08/08/23 History cholecalciferol (vitamin D3) 10 10 mcg PO DAILY 10/04/22 08/08/23 08/08/23 History mcg (400 unit) tablet (Vitamin D3) lutein 20 mg capsule 20 mg PO DAILY 10/04/22 08/08/23 08/08/23 History melatonin 5 mg tablet 5 mg PO BEDTIME PRN Insomnia 10/04/22 08/08/23 05/17/23 History tramadol 50 mg tablet 1 tab PO BID PRN Pain 10/04/22 08/08/23 05/18/23 History buspirone 5 mg tablet 5 mg PO DAILY PRN Anxiety 08/08/23 08/08/23 Unknown History hydroxyzine pamoate 25 mg capsule 25 mg PO DAILY PRN anxiety 08/08/23 08/08/23 Unknown History nystatin 100,000 unit/gram topical 1 appl topical BID PRN Rash 08/08/23 08/08/23 Unknown History powder omega 9-[id number]-fish oil 1,000 mg 1 cap PO DAILY 08/08/23 08/08/23 08/08/23 History (120 mg-180 mg) capsule (Fish Oil) ropinirole 1 mg tablet 0.5 - 1 mg PO BEDTIME PRN Restless 08/08/23 08/08/23 Unknown History Leg(S) torsemide 20 mg tablet 40 mg PO DAILY 08/08/23 08/08/23 08/08/23 History vitamin E (dl, acetate) 400 unit 400 unit PO DAILY 08/08/23 08/08/23 Unknown History chewable tablet Physical Exam Vital Signs: Vital Signs: Last Vital Signs Temp 97.5 F 08/10/23 11:10 Pulse 88 08/10/23 11:10 Resp 24 H 08/10/23 11:10 BP 104/63 08/10/23 11:10 Pulse Ox 95 08/10/23 11:10 O2 Del Method Nasal Cannula 08/10/23 11:10 O2 Flow Rate 4 08/10/23 11:10 BMI result Body Mass Index 41.6 Const: General: no acute distress Nutritional Appearance: obese (morbidly obese) Orientation/consciousness: patient oriented x3 Limitations: physical limitations and ambulation with walker HEENT: Head: Yes normal to inspection Ears: hearing grossly normal bilaterally Eyes: Sclerae: sclerae normal Pupils: Equal, round and reactive pupils present Neck: Neck: Yes normal visual inspection Chest: Chest palpation & inspection: normal inspection of the chest Resp: Effort & Inspection: normal respiratory effort Auscultation: clear to auscultation bilaterally Cardio: Palpation: normal PMI Rate: regular rate Rhythm: regular rhythm Heart sounds: S1 normal heart sound present, S2 normal heart sound present and no murmurs GI: Inspection: Yes obesity Palpation (GI): Soft to palpation, nontender and No hepatosplenomegaly present Auscultation: normal bowel sounds Rectal Exam - Female: deferred Skin: General skin exam: no rashes or lesions noted Neuro: General: patient oriented x3, gait normal and moves all extremities Cranial nerves: Yes Equal, round and reactive pupils present Psych: Appearance: grossly normal Mental Status: mental status grossly normal Results Labs 08/11/23 08:39 08/11/23 08:39 Microbiology Microbiology Results: Microbiology 08/08/23 15:50 Blood - Venous Blood Culture - Preliminary No growth after 24 hours. 08/08/23 15:50 Blood - Venous Blood Culture - Preliminary No growth after 24 hours. Assessment and Plan (1) Acute lower gastrointestinal bleeding: Status: Acute (2) Chronic anticoagulation: Status: Resolved Plan 78 YF with hx of heart failure with preserved ejection fraction (HFpEF), chronic obstructive pulmonary disease (COPD) requiring home oxygen therapy (4 liters via nasal cannula), hypertension (HTN), [id number] respiratory failure with elevated carbon dioxide levels (hypercapnia), non-compliance with continuous positive airway pressure (CPAP) therapy for obstructive sleep apnea (WOJCIECH), emphysema, cor pulmonale, cholecystitis, depression, and atrial fibrillation treated with Xarelto, [place] [facility] [place]23 with worsening shortness of breath over the past several days. Pt also complained of intermittent rectal bleeding for the past week - blood was dark burgundy in color . Pt reports having a colonoscopy ? [facility] 8 to 10 yrs ago. Labs in the ED showed hct of 34% (decreased from 41 in 05/2023). INR was 2. Repeat labs today showed H & H of 10.7 and 35.5 - stable without blood transfusions GI bleeding likely from LGI source - large polyp, colon mass or AVM. Less likely to be from UGI tract Pattern of bleeding is not suggestive of a diverticular source Pt is high risk for anesthesia due to cardiac and advanced COPD with oxygen dependance RECOMMENDATIONS: 1. Agree with IV PPI and follow CBC daily. 2. Further evaluation with colonoscopy (+/- EGD if colon is negative) was discussed with the patient. She is reluctant to undergo endoscopic evaluation. She would like to discuss with her two sons first and then decide ADDENDUM: Patient chose to decline any invasive procedures, attributing her decision to her age and multiple underlying health issues. Despite several discusions with the patient, she remained resolute in her decision. Her repeated Hemoglobin and Hematocrit levels remained stable without further bleeding. 08/11/23 Pt was discharged home and provided with visiting nurse services at home Time Spent With Patient Time: Total time managing care of this patient today ____ minutes. Procedures Date of Service Date of Service: 08/23/23
[2023-08-10 12:10] LABS: Hematocrit 35.5 % (37.0-47.0); Hemoglobin 10.7 g/dl (12.0-16.0); Mean Corpuscular HGB Conc 30.1 g/dl (31.0-35.0); Mean Corpuscular Hemoglobin 29.6 pg (27.0-33.0); Mean Corpuscular Volume 98.3 fL (80.0-98.0); Mean Platelet Volume 10.6 fL (9.4-12.3); Platelet Count 214 X10*3/uL (160-400); Red Blood Count 3.61 X10*6/uL (4.20-5.50); Red Cell Distribution Width 14.3 % (11.0-16.0); White Blood Count 10.1 X10*3/uL (4.8-10.8)
[2023-08-10 15:05] VITALS: BP 143/65; PULSE 87; RESP 16; TEMP 36.1; O2SAT 93
[2023-08-10 20:00] VITALS: BP 135/63; PULSE 87; RESP 18; TEMP 36.8; O2SAT 95
[2023-08-10] MEDS: Atorvastatin Calcium 20 MG TABLET PO (20:51)
[2023-08-10 23:59] VITALS: BP 99/46; PULSE 81; RESP 18; TEMP 36.4; O2SAT 94
[2023-08-11] MEDS: 0.9 % Sodium Chloride Flush 3 ML SYRINGE IVFLUSH ×2 (00:33→09:06)
[2023-08-11 03:25] VITALS: BP 112/52; PULSE 95; RESP 20; TEMP 37.1; O2SAT 95
[2023-08-11] MEDS: Pantoprazole Sodium 40 MG/10 ML VIAL IVPUSH (05:05)
[2023-08-11] MEDS: Fluticasone/Vilanterol 100/25 BLST.W.DEV 1 PUFF INHALE (07:53)
[2023-08-11 07:57] VITALS: PULSE 95; RESP 20; O2SAT 93
[2023-08-11 08:00] VITALS: BP 103/49; PULSE 89; RESP 24; TEMP 36.5; O2SAT 93
[2023-08-11 08:53] LABS: Hematocrit 33.3 % (37.0-47.0); Hemoglobin 9.8 g/dl (12.0-16.0); Mean Corpuscular HGB Conc 29.4 g/dl (31.0-35.0); Mean Corpuscular Hemoglobin 29.4 pg (27.0-33.0); Mean Platelet Volume 11.2 fL (9.4-12.3); Platelet Count 155 X10*3/uL (160-400); Red Blood Count 3.33 X10*6/uL (4.20-5.50); Red Cell Distribution Width 14.4 % (11.0-16.0); White Blood Count 9.2 X10*3/uL (4.8-10.8)
[2023-08-11] MEDS: Vitamin E (Dl,Tocopheryl Acet) 180 MG (400 UNIT) CAPSULE PO (09:04)
[2023-08-11] MEDS: Docusate Sodium 100 MG CAPSULE PO ×2 (09:04→11:15)
[2023-08-11 09:05] LABS: Anion Gap 12 (12-20); Blood Urea Nitrogen 7 mg/dL (9-16); Calcium 9.5 mg/dL (8.4-10.2); Carbon Dioxide 39 mmol/L (22-29); Chloride 96 mmol/L (96-108); Estimated Glomerular Filt Rate > 60; Glucose Random 103 mg/dL (60-115); Potassium 3.1 mmol/L (3.3-5.1); Sodium 144 mmol/L (135-145)
[2023-08-11] MEDS: Torsemide 20 MG TABLET 40 MG PO (09:05)
[2023-08-11] MEDS: Digoxin 0.125 MG TABLET PO (09:05)
[2023-08-11] MEDS: busPIRone HCl 5 MG TABLET PO (09:05)
[2023-08-11] MEDS: acetaZOLAMIDE 250 MG TABLET PO (09:05)
[2023-08-11] MEDS: dilTIAZem HCL CD 180 MG CAP.ER.24H PO (09:06)
[2023-08-11] MEDS: guaiFENesin LA 600 MG TAB.ER.12H PO (09:06)
[2023-08-11] MEDS: Metoprolol Tartrate 12.5 MG HALFTAB PO (09:06)
[2023-08-11 09:09] VITALS: BP 103/50; PULSE 105
--- NOTE | 2023-08-11 11:41 | MHC.CM.PN ---
Addendum entered by Mckenna Crystal RN 08/11/23 16:10: [facility] WILLING TO PROVIDE SERVICES FOR PT AND SOC WILL BE ON MONDAY 08/13 PENDING FACE TO FACE. Addendum entered by Mckenna Crystal RN 08/11/23 15:59: HOSPITALIST REQUESTING [facility] SERVICES FOR HOME PT/SN, BROAD REFERRAL SENT D/T IT BEING LATE MONDAY AND PT DISCHARGING, CM AWAITING RESPONSE. Original Note: PER HOSPITALIST ANTIC PT WILL D/C HOME W/RESUMP OF [facility] O2/DEAF/HARD OF HEARING SPECIALIST HRS AND FAMILY SUPPORT, DTR [facility]US[facility] FOR TRANSPORT.
[2023-08-11 11:44] VITALS: BP 109/63; PULSE 86; RESP 19; TEMP 36.2; O2SAT 97
--- NOTE | 2023-08-11 15:21 | P.DS_ITS ---
DS: Providers Provider Date of Service: 08/11/23 Date of admission: 08/08/23 18:50 Primary care physician: Clint Tong MD Consults: 08/08/23 17:14 Consult to Gastroenterology Stat Consulting Provider: Deepti Carrasco Reason for consultation: Lower GI bleed, on Xarelto Has provider been notified: Yes 08/08/23 18:52 Consult to Gastroenterology Routine Consulting Provider: Franklyn lCemens Reason for consultation: rectal bleed Has provider been notified: No DS: Diagnosis Discharge Diagnosis (1) Acute lower gastrointestinal bleeding: Status: Acute (2) Chronic anticoagulation: Status: Acute DS: Summary Hospital Course Hospital Course: Chief Complaint: Shortness of breath and rectal bleed An 78-year-old female with a significant past medical history including heart failure with preserved ejection fraction (HFpEF), chronic obstructive pulmonary disease (COPD) requiring home oxygen therapy (4 liters via nasal cannula), hypertension (HTN), heioc-[id number] respiratory failure with elevated carbon dioxide levels (hypercapnia), non-compliance with continuous positive airway pressure (CPAP) therapy for obstructive sleep apnea (WOJCIECH), emphysema, cor pulmonale, cholecystitis, depression, and atrial fibrillation treated with Xarelto, presents to the emergency department. She complains of worsening shortness of breath over the past several days and has noticed blood in her stool. In May, her hematocrit measured at 41, which has now declined to 34. INR is 2. Her oxygen saturation was 85% on room air and improved to 93% with the administration of 4 liters of oxygen. A rectal examination revealed melena. She received Kcentra, and the gastroenterology team recommends intravenous proton pump inhibitor (PPI) therapy and keeping her nil per os (NPO). Currently, she is not experiencing any respiratory distress Hospital course: The patient was admitted due to rectal bleeding, which prompted an investigation for anemia. As a part of the treatment, Xarelto was discontinued, and she received intravenous PPI. A Shirt Sorter assessed her condition and recommended an EGD with the possibility of a Colonoscopy to identify the source of the bleeding. Regrettably, she has chosen to decline any invasive procedures, attributing this decision to her age and multiple underlying health issues. She is well aware that discontinuing anticoagulation increases her risk of a stroke. Despite efforts from both the GI doctor and myself, as well as her daughter, she remains resolute in her decision. Her repeated Hemoglobin and Hematocrit levels have remained stable, and there has been no further bleeding. Consequently, she will be discharged and provided with visiting nurse services at home. Time Spent with Patient Time attestation: Total time managing care of this patient today ____ minutes. Discharge coordination time: Greater than 30 minutes Quality: Safe Use of Opioids Does Pt have an Active Cancer Diagnosis on the Problem List?: No Quality: Stroke Does the patient have a stroke diagnosis?: No Physical Exam Vital Signs: Vital Signs: Last Vital Signs Temp 97.1 F 08/11/23 11:44 Pulse 86 08/11/23 11:44 Resp 19 08/11/23 11:44 BP 109/63 08/11/23 11:44 Pulse Ox 97 08/11/23 11:44 O2 Del Method Nasal Cannula 08/11/23 11:44 O2 Flow Rate 4 08/11/23 11:44 BMI result Body Mass Index 41.6 DS: Data Data Completed and Pending Completed studies during hospitalization [Text1]: Procedures Assistance with Respiratory Ventilation, Less than 24 Consecutive Hours, Continuous Positive Airway Pressure (05/18/23) Insertion of Infusion Device into Superior Vena Cava, Percutaneous Approach (10/04/22) Introduction of Vasopressor into Central Vein, Percutaneous Approach (10/04/22) Ultrasonography of Superior Vena Cava, Guidance (10/04/22) Labs on day of discharge: Laboratory Results - last 24 hr 08/11/23 08:39 WBC 9.2 RBC 3.33 L Hgb 9.8 L Hct 33.3 L MCV 100.0 H MCH 29.4 MCHC 29.4 L RDW 14.4 Plt Count 155 L D MPV 11.2 Absolute Nucleated RBC 0.000 Nucleated RBC % (auto) 0.0 Sodium 144 Potassium 3.1 L Chloride 96 Carbon Dioxide 39 H Anion Gap 12 BUN 7 L Creatinine 0.81 Estim Creat Clear Calc 72.0 Estimated GFR > 60 Random Glucose 103 Calcium 9.5 Preliminary micro results at discharge 08/08/23 15:50 Blood Culture - Preliminary Blood - Venous No growth after 48 hours. 08/08/23 15:50 Blood Culture - Preliminary Blood - Venous No growth after 48 hours. Discharge Plan Discharge Anticipated Discharge Date/Time: 08/11/23 14:39 Patient Disposition: Home Health Service Discharge Diagnosis: GIB bleeding, acute blood loss anemia Referrals: Clint Tong MD [Primary Care Provider] - 1 Week Discharge Medications: Continued fluticasone furoate-vilanterol [Breo Ellipta] 100-25 mcg/dose Blister With Device 1 puff inhalation RDAILY Qty: 1 0RF guaifenesin [Mucinex] 600 mg Tablet Extended Release 12hr 600 mg PO BID Qty: 20 0RF albuterol sulfate 2.5 mg /3 mL (0.083 %) solution for nebulization 1 vial inhalation Q4H PRN (Reason: Shortness Of Breath) docusate sodium 100 mg Capsule 100 mg PO BID albuterol sulfate 90 mcg/actuation Hfa Aerosol Inhaler 2 puff INHALATION QID PRN (Reason: Shortness Of Breath) metoprolol tartrate 25 mg tablet 12.5 mg PO BID buspirone 5 mg tablet 5 tab PO BID tramadol 50 mg tablet 1 tab PO BID PRN (Reason: Pain) aspirin 81 mg Tablet,Delayed Release (Dr/Ec) 81 mg PO MOWEFR@2100 cholecalciferol (vitamin D3) [Vitamin D3] 10 mcg (400 unit) Tablet 10 mcg PO DAILY B-complex with vitamin C Tablet 1 tab PO DAILY@1500 lutein 20 mg Capsule 20 mg PO DAILY Rx Instructions: give with meal/snack melatonin 5 mg Tablet 5 mg PO BEDTIME PRN (Reason: Insomnia) ropinirole 1 mg tablet 0.5 - 1 mg PO BEDTIME PRN (Reason: Restless Leg(S)) nystatin 100,000 unit/gram powder 1 appl topical BID PRN (Reason: Rash) hydroxyzine pamoate 25 mg capsule 25 mg PO DAILY PRN (Reason: anxiety) torsemide 20 mg tablet 40 mg PO DAILY buspirone 5 mg tablet 5 mg PO DAILY PRN (Reason: Anxiety) vitamin E (dl, acetate) 400 unit Tablet,Chewable 400 unit PO DAILY omega 2-udz-dto-fish oil [Fish Oil] 1,000 mg (120 mg-180 mg) Capsule 1 cap PO DAILY diltiazem HCl [Cardizem CD] 180 mg Capsule,Extended Release 24hr 180 mg PO DAILY Qty: 30 0RF Protocol: Hold for SBP/HR < HOLD for SBP < : 90 HOLD for HR < : 60 digoxin 125 mcg (0.125 mg) Tablet 0.125 mg PO Q2D Qty: 30 0RF atorvastatin 20 mg tablet 20 mg PO BEDTIME omeprazole 20 mg capsule,delayed release(DR/EC) 20 mg PO DAILY@0630 Discontinued Xarelto 20 mg Tablet 20 mg PO DAILY Qty: 30 0RF Discharge Orders: Discharge Order (Routine); Ordered 08/11/23 Ordered By: Saul Gonzalez Diet: Advance to usual diet Activity on Discharge: As tolerated Stand Alone Forms: Patient Portal Discharge page Care Plan Goals: resolution of anemia Health Concerns: chronic atrial fibrilaion with risk of stroke Plan of Treatment: You have chosen not to proceed with an EGD or colonoscopy to identify the source of the bleeding. Given this decision, we recommend that you stop taking Xarelto for the time being. However, should you change your mind in the future and opt for a colonoscopy or EGD, then you may resume Xarelto. Xarelto was prescribed to you to prevent strokes by thinning your blood. Not taking Xarelto or any other blood thinners increases the risk of a stroke. In this situation, I recommend taking a daily baby aspirin unless you experience additional bleeding. Please arrange a follow-up appointment with your doctor and a necktie centralizing machine operator to further discuss these matters. continue all other medication. Visiting nurses will assess you at home Assessment: as above Discharge Date/Time: 08/11/23 16:12
--- NOTE | 2023-08-11 16:18 | P.F2F_ITS ---
Service Date Service Date: 08/11/23 Encounter Date of encounter: 08/11/23 Reasons for Services Signs and symptoms assessed: shortness of breath from chronic heart failre, chronic copd, anemia and deconditioned Reason for care home: medication management and teach disease management Reason for physical therapy: therapeutic exercises and energy conservation Homebound: Leaving the home is medically contraindicated at this time without the asist of a device and/or another person due th the listed conditions above and below. Reason homebound: unsteady gait / fall risk and shortness of breath with minimal effort Homebound supporting statement: Homebound due to shortness from chronic copd, chronic heart failure causing shortness of breath with minimal activity and therefore needing the assistance of another peron Certification: Based on the above findings, I certify that this patient is confined to the home and needs intermittent care home care, physical therapy and/or speech therapy, or continues to need occupational therapy. The patient is under my care, and I have initiated the establishment of the plan of care. The patient will be followed by a physician who will periodically review the plan of care. Time Spent With Patient Time: Total time managing care of this patient today ____ minutes.
== END 2023-08-11 16:12 | disposition home health service (06) | DRG 377 ==
LOC: HO.ED 17:14 → HO.EDOVER 18:54 → HO.IMC 20:34
PROVIDERS: Admitting Provider Internal Medicine; Emergency Provider Emergency Medicine Emergency Medical Services; PCP Internal Medicine; Visit Provider Internal Medicine
DX: K62.5 Hemorrhage of anus and rectum (principal); I50.33 Acute on chronic diastolic (congestive) heart failure; D62 Acute posthemorrhagic anemia; I48.20 Chronic atrial fibrillation, unspecified; E87.3 Alkalosis; Z68.41 Body mass index [BMI] 40.0-44.9, adult; I11.0 Hypertensive heart disease with heart failure; G47.33 Obstructive sleep apnea (adult) (pediatric); J43.9 Emphysema, unspecified; Z99.81 Dependence on supplemental oxygen; R79.1 Abnormal coagulation profile; E66.01 Morbid (severe) obesity due to excess calories; Z71.3 Dietary counseling and surveillance; Z20.822 Contact with and (suspected) exposure to COVID-19; Z91.199 Patient's noncompliance with other medical treatment and regimen due to unspecified reason; Z87.891 Personal history of nicotine dependence; Z79.01 Long term (current) use of anticoagulants; Z79.82 Long term (current) use of aspirin; Z79.899 Other long term (current) drug therapy
CPT/HCPCS: 0241U; 36415; 71045; 74176; 80048; 80053; 81001; 82272; 82803; 83605; 83690; 83880; 84484; 85025; 85027; 85610; 85730; 86850; 86900; 86901; 87040; 93005; 94640; 99285; J7168

== ENCOUNTER → 2023-08-08 18:50 | Outpatient (BNV) | payer MEDICARE, MEDICAID, SELFPAY | PROVIDERS: Admitting Provider Internal Medicine; Emergency Provider Emergency Medicine Emergency Medical Services; PCP Internal Medicine; Visit Provider Internal Medicine | DX: K92.2 Gastrointestinal hemorrhage, unspecified (principal); Z79.01 Long term (current) use of anticoagulants | CPT/HCPCS: 99223; 99232; 99239; G0180 ==

== ENCOUNTER → 2023-08-08 18:50 | Outpatient (BNV) | payer MEDICARE, MEDICAID, SELFPAY | PROVIDERS: Admitting Provider Internal Medicine; Emergency Provider Emergency Medicine Emergency Medical Services; PCP Internal Medicine; Visit Provider Internal Medicine Gastroenterology | DX: K92.2 Gastrointestinal hemorrhage, unspecified (principal); Z79.01 Long term (current) use of anticoagulants | CPT/HCPCS: 99232 ==

== ENCOUNTER 2024-04-08 13:44 | Inpatient (IN) | payer MEDICARE, MEDICAID, SELFPAY ==
[2024-04-08] VITALS (15 sets, daily range): BP systolic 98–136; BP diastolic 58–101; PULSE 80–148; RESP 18–33; TEMP 36.4–36.6; O2SAT 83–98; BMI 41.3
--- NOTE | ~2024-04-08 | XR_ITS ---
EXAMINATION: XR CHEST CLINICAL INFORMATION: Shortness of breath. COPD. COMPARISON: Chest x-ray August 08, 2023 TECHNIQUE: Frontal portable view of the chest was obtained. 1519 hours FINDINGS: Heart size is enlarged. There are vascular calcifications of aorta. Lung volume low causing prominence of bronchovascular markings. This is similar in severity to the prior exam of August 08, 2023. There is no overt pulmonary edema. No focal consolidation and no pleural effusion. XR/XR chest 1V IMPRESSION: 1. Cardiomegaly. 2. Low lung volume. 3. Prominence of bronchovascular markings accentuated by low inspiratory effort. No overt pulmonary edema.
--- NOTE | ~2024-04-08 | XR_ITS ---
EXAMINATION: XR CHEST CLINICAL INFORMATION: Persistent respiratory failure, rapid a-fib COMPARISON: CT and radiographs dated 04/08/2024 TECHNIQUE: Frontal view of the chest was obtained. FINDINGS: Cardiac silhouette remains enlarged. There is pulmonary venous congestion as well as mild interstitial edema, similar to prior. Trace pleural effusions. No pneumothorax. No new airspace consolidation. No appreciable alveolar edema. Atherosclerotic calcifications at the thoracic aorta. Degenerative spondylosis in the thoracic spine. Osteoarthritis is present in the acromioclavicular and glenohumeral joints. XR/XR chest 1V IMPRESSION: Cardiomegaly with mild interstitial edema and trace pleural effusions, similar to prior.
--- NOTE | ~2024-04-08 | CT_ITS ---
EXAMINATION: CTA CHEST PE STUDY CLINICAL INFORMATION: sob, not compliant with blood thinners COMPARISON: No pertinent prior studies are available for comparison. TECHNIQUE: Prior to contrast administration, noncontrast localization images were obtained. After the administration of 75 mL of Omnipaque nonionic IV contrast, contiguous thin slice helical images were obtained through the thorax. Reformatted MIP images in the coronal and sagittal planes were obtained at the acquisition workstation. This CT examination was performed using dose optimization techniques as appropriate, variously including the following: *Automated exposure control *Adjustment of mA and/or kV according to patient size (this includes techniques or standardized protocols for targeted exams where dose is matched to indication/reason for exam; i.e. extremities or head) *Use of iterative reconstruction technique DLP: 437 mGy-cm. FINDINGS: The bolus timing on this study was acceptable for visualization of the pulmonary arterial tree. There are no intraluminal pulmonary arterial filling defects present to suggest pulmonary embolism. Dependent atelectasis and tiny bilateral pleural effusions. No abnormal pulmonary nodules or masses are appreciated. No significant hilar or mediastinal adenopathy. There is no evidence of pleural effusion or pneumothorax. The heart is normal in size. No evidence of ventricular septal bowing or right heart strain. Great vascular calcification within the aorta, great vessels, and coronary vessels small pericardial effusion. No pericardial thickening. Right thyroid fullness partially visualized Limited evaluation of the upper abdominal viscera is unremarkable. CT/CT angio chest PE protocol IMPRESSION: 1. No evidence for pulmonary emboli. Dependent atelectasis and tiny bilateral pleural effusions. 2. VTE: Negative.
--- NOTE | 2024-04-08 13:50 | ECG_ITS ---
Test Reason : SOB Blood Pressure : / mmHG Vent. Rate : 112 BPM Atrial Rate : 000 BPM P-R Int : 000 ms QRS Dur : 108 ms QT Int : 268 ms P-R-T Axes : 000 -29 121 degrees QTc Int : 365 ms Atrial fibrillation with rapid ventricular response Low voltage QRS Incomplete right bundle branch block Cannot rule out Anterior infarct , age undetermined Abnormal ECG When compared with ECG of 08-AUG-2023 15:12, Nonspecific T wave abnormality now evident in Anterolateral leads Referred By: Zulema Brownlee Electronically Signed By:KAL GRAVES MD
--- NOTE | 2024-04-08 14:41 | ED_ITS ---
HPI - SOB/Dyspnea General Chief Complaint: Dyspnea Stated Complaint: SOB,DUONEB BEFORE EMS ARR,91% PER EMS Source: patient and EMS Mode of arrival: EMS Limitations: no limitations History of Present Illness ED Provider: Dr. Zulema Brownlee HPI Narrative: Patient comes to the emergency room complaining of shortness of breath. Patient states that for about 1 week, patient has been having productive cough, denies fever or chills. Patient states that she usually uses 4 L of oxygen at home, but it seems that patient is always feeling short of breath if despite using her oxygen at all times. Patient denies chest pain, denies any lower extremity swelling. Patient denies any falls or trauma. Prior to arrival, patient used a DuoNeb at home, states that she started breathing more comfortable afterwards. When EMS arrived, patient's oxygen saturation was in the low 90s at 4 L which is patient's baseline. Related Data Home Medications ?Medication ?Instructions ?Recorded ?Confirmed atorvastatin 20 mg tablet 20 mg PO BEDTIME 10/13/20 08/08/23 omeprazole 20 mg capsule,delayed 20 mg PO DAILY@0630 10/13/20 08/08/23 release albuterol sulfate 2.5 mg/3 mL 1 vial inhalation Q4H PRN 01/07/22 08/08/23 (0.083 %) solution for nebulization Shortness Of Breath albuterol sulfate 90 mcg/actuation 2 puff inhalation QID PRN 01/07/22 08/08/23 aerosol inhaler Shortness Of Breath docusate sodium 100 mg capsule 100 mg PO BID Constipation 01/07/22 08/08/23 metoprolol tartrate 25 mg tablet 12.5 mg PO BID 01/07/22 08/08/23 B-complex with vitamin C 1 tab PO DAILY@1500 10/04/22 08/08/23 aspirin 81 mg tablet,delayed 81 mg PO MOWEFR@2100 10/04/22 08/08/23 release buspirone 5 mg tablet 5 tab PO BID Anxiety 10/04/22 08/08/23 cholecalciferol (vitamin D3) 10 10 mcg PO DAILY 10/04/22 08/08/23 mcg (400 unit) tablet (Vitamin D3) lutein 20 mg capsule 20 mg PO DAILY 10/04/22 08/08/23 melatonin 5 mg tablet 5 mg PO BEDTIME PRN Insomnia 10/04/22 08/08/23 tramadol 50 mg tablet 1 tab PO BID PRN Pain 10/04/22 08/08/23 buspirone 5 mg tablet 5 mg PO DAILY PRN Anxiety 08/08/23 08/08/23 hydroxyzine pamoate 25 mg capsule 25 mg PO DAILY PRN anxiety 08/08/23 08/08/23 nystatin 100,000 unit/gram topical 1 appl topical BID PRN Rash 08/08/23 08/08/23 powder omega 1-tnr-gml-fish oil 1,000 mg 1 cap PO DAILY 08/08/23 08/08/23 (120 mg-180 mg) capsule (Fish Oil) ropinirole 1 mg tablet 0.5 - 1 mg PO BEDTIME PRN Restless 08/08/23 08/08/23 Leg(S) torsemide 20 mg tablet 40 mg PO DAILY 08/08/23 08/08/23 vitamin E (dl, acetate) 400 unit 400 unit PO DAILY 08/08/23 08/08/23 chewable tablet Previous Rx's ?Medication ?Instructions ?Recorded fluticasone furoate 100 1 puff inhalation RDAILY #1 ea 11/03/20 mcg-vilanterol 25 mcg/dose inhalation powder (Breo Ellipta) guaifenesin 600 mg tablet, 600 mg PO BID #20 tabs 11/03/20 extended release 12 hr (Mucinex) digoxin 125 mcg (0.125 mg) tablet 0.125 mg PO Q2D #30 tabs 05/23/23 diltiazem HCl 180 mg 180 mg PO DAILY #30 caps 05/23/23 capsule,extended release 24 hr (Cardizem CD) Allergies Allergy/AdvReac Type Severity Reaction Status Date / Time ceftriaxone [From Rocephin] Allergy Unknown Unknown Verified 04/08/24 14:24 vancomycin Allergy Unknown itch, Verified 04/08/24 14:24 rash, hives Review of Systems 2 Review of Systems: Constitutional : No Weight loss, No Fever, No Chills, No Night Sweats, No Fatigue, No Malaise ENT/Mouth : No Hearing loss, No Ear Pain, No Nasal Congestion, No Sinus Pain, No Hoarseness, No sore throat, No Rhinorrhea, No Swallowing Difficulty Eyes: No Eye Pain, No Swelling, No Redness, No Foreign Body, No Discharge, No Vision Changes Cardiovascular : No Chest Pain, No SOB, No Dyspnea on Exertion, No Orthopnea, No Edema, No Palpitations Respiratory : patient complaining of productive cough, wheezing and intermittent shortness of breath Gastrointestinal : No Nausea, No Vomiting, No Diarrhea, No Constipation, No abdominal Pain, No Hematochezia, No Melena Genitourinary : no irregular bleeding, No Dysuria, No Urinary Frequency, No Hematuria, No Urinary Incontinence, No Urgency, No Flank Pain, No Urinary Flow Changes, No Hesitancy Musculoskeletal : No joint pain, No Myalgias, No Joint Swelling Skin : No Skin Lesions, No rash Neuro : No Weakness, No Numbness, No Paresthesias, No Loss of Consciousness, No Dizziness, No Headache Psych : No Anxiety/Panic, No Depression, No SI/HI/AH/VH, No Social Issues, Heme/Lymph: No Bruising, No Bleeding,No Lymphadenopathy Endocrine : No Polyuria, No Polydipsia, No Temperature Intolerance [facility] Past Medical History Medical History (Updated 04/08/24 @ 20:18 by Zulema Brownlee MD) History of non-ST elevation myocardial infarction (NSTEMI) (~09/2022) Osteoporosis Leukocytosis Dilated cbd, acquired Cholecystitis Gallstone Pancreatitis WOJCIECH (obstructive sleep apnea) Acute and chronic respiratory failure with hypercapnia Diastolic CHF with preserved left ventricular function, NYHA class 2 Cor pulmonale, chronic Emphysema lung Supplemental oxygen dependent COPD (chronic obstructive pulmonary disease) Surgical History (Updated 06/09/23 @ 14:36 by Gretta Thomas PA-C) History of squamous cell carcinoma excision Family History Family History (Updated 05/19/23 @ 09:52 by Liam Harris MD) Father Myocardial infarction Social History Social History Household Members: Children Housing: House Do you presently have visiting nurse or other home services: Yes Unable to assess alcohol history related to: Unknown Alcohol intake: never Comment: patient is high fall risk Patient Tobacco Use Status: Former Tobacco user Tobacco use type: Cigarette Second Hand Smoke Exposure: No Substance Use Type: Unknown Advance Directives: No Advance Directives Information Provided: Yes Do you have a plan to hurt others: No Plan service: No Current occupational status: retired Physical Exam 2 Vital Signs: Vital Signs: Last Vital Signs Temp 97.9 F 04/08/24 17:49 Pulse 143 H 04/08/24 20:20 Resp 30 H 04/08/24 20:04 BP 136/71 04/08/24 20:20 Pulse Ox 90 L 04/08/24 19:53 O2 Del Method CPAP 04/08/24 19:53 O2 Flow Rate 4 04/08/24 17:49 Oxygen Flow Rate 4 04/08/24 14:22 BMI result Body Mass Index 41.3 Course Course Course Narrative: -at this time of arrival, patient no longer wheezing. Seems that her DuoNeb work before arriving to the hospital. -patient reports increased cough, increased sputum production and more O2 requirement. Denies lower extremity edema -patient empirically being given IV fluids based on ideal weight of 52 kg, patient is obese. Patient receiving IV levofloxacin, patient allergic to cephalosporins. -all of patient's labs and imaging pending Medications Administered Discontinued Medications Generic Name Dose Route Start Last Admin Trade Name Freq PRN Reason Stop Dose Admin Diltiazem HCl 10 mg 04/08/24 17:48 04/08/24 18:17 Diltiazem Hcl 50 Mg/10 Ml Vial IVPUSH 04/08/24 17:49 10 mg STAT STA Administration Diltiazem HCl 10 mg 04/08/24 20:14 04/08/24 20:20 Diltiazem Hcl 50 Mg/10 Ml Vial IVPUSH 04/08/24 20:15 10 mg STAT STA Administration Diltiazem HCl 10 mg 04/08/24 20:15 04/08/24 20:27 Diltiazem Hcl 50 Mg/10 Ml Vial IVPUSH 04/08/24 20:16 Not Given STAT STA Sodium Chloride 1,560 mls @ 999 mls/hr 04/08/24 14:33 04/08/24 19:53 Ns IVCONT 04/08/24 16:06 Infused .Q1H34M ONE Infusion Levofloxacin 500 mg in 100 mls @ 100 mls/hr 04/08/24 14:38 04/08/24 18:16 Levaquin IV 04/08/24 15:37 Infused ONCE ONE Infusion Iohexol 100 ml 04/08/24 18:47 04/08/24 18:47 Iohexol 350 Mg/Ml 100 Ml Infus..Btl IV 04/08/24 18:48 75 ml ONCE ONE Administration Methylprednisolone Sodium Succinate 125 mg 04/08/24 14:38 04/08/24 15:39 Methylprednisolone Sod Succ 125 Mg/2 Ml Vial IVPUSH 04/08/24 14:39 125 mg ONCE ONE Administration Medical Decision Making Medical Decision Making [facility] Narrative: -my interpretation of labs, hematology at baseline, D-dimer elevated at 300, pCO2 is 75, however, patient's pH is normal and bicarb is elevated at 50 suggesting that there is a chronic process. Patient is completely awake and alert, rescue CPAP not indicated at this time. Chemistry shows chronic changes, troponin negative, LFTs normal. Urinalysis negative -patient's chest x-ray shows cardiomegaly, no infiltrates, no pleural effusions or pulmonary edema. Patient has history of pulmonary embolisms, unclear if patient is compliant with her blood thinners -CT scan to rule out pulmonary embolism pending -I was informed by the patient's nurse the patient's heart rate is now 148, blood pressure 128/74, patient known to have AFib, now in RVR. -patient was given a dose of 10 mg Cardizem -after the 1st 10 mg of Cardizem, heart rate initially improved to the 120s but shortly after went back to the 140s. Patient receiving a 2nd dose of 10 mg Cardizem -initially, patient was doing well on 6 L of oxygen, O2 saturation 90% but slowly patient started having difficulty keeping up with her oxygenation, dropped to the mid 80s on 6 L. Patient was started on CPAP, patient now saturating in the low 90s -CTA negative for pulmonary embolism -patient's daughter is at bedside, patient is supposed to be on CPAP at home. However, over a year ago, patient threw it away because she did not like it -I discussed the patient with Dr. Ocampo from the ICU, patient being admitted to ICU -however, after discussing the patient with both ICU and the hospitalist team with Dr. Hannah, patient will be going to the floor although patient is on CPAP Differential Diagnosis Differential Diagnoses: The differential diagnosis associated with the presentation includes (AFib with RVR, CHF, pneumonia, chronic lung disease) Admission/Observation Consideration of admission/observation: Escalation of care including admission/observation considered Consult Healthcare Provider Management of the patient was discussed with: Guest Associate Lab Data [facility] Lab Attestation statement: I reviewed the patient's lab results. 04/08/24 14:48 04/08/24 14:48 Labs: Lab Results 04/08/24 04/08/24 04/08/24 Range/Units 14:48 14:52 14:53 WBC 7.6 (4.8-10.8) X10*3/uL RBC 3.68 L (4.20-5.50) X10*6/uL Hgb 11.1 L (12.0-16.0) g/dl Hct 36.1 L (37.0-47.0) % MCV 98.1 H (80.0-98.0) fL MCH 30.2 (27.0-33.0) pg MCHC 30.7 L (31.0-35.0) g/dl RDW 15.1 (11.0-16.0) % Plt Count 164 (160-400) X10*3/uL MPV 11.3 (9.4-12.3) fL Immature Gran % (Auto) 0.3 (0.0-0.4) % Neut % (Auto) 76.8 H (45-73) % Lymph % (Auto) 13.4 L (20-40) % Cuming % (Auto) 8.7 (2-11) % Eos % (Auto) 0.5 (0-4) % Baso % (Auto) 0.3 (0-2) % Lymph # (Auto) 1.0 L (1.2-4.9) X10*3/uL Cuming # (Auto) 0.7 (0.1-1.2) X10*3/uL Eos # (Auto) 0.0 (0.0-0.4) X10*3/uL Baso # (Auto) 0.0 (0.0-0.2) X10*3/uL Abs Immat Gran (auto) 0.02 (0.00-0.03) X10*3/uL Absolute Neuts (auto) 5.9 (2.0-8.3) x10*3/uL Absolute Nucleated RBC 0.000 (0.0-0.012) X10*3/uL Nucleated RBC % (auto) 0.0 (0.0-0.2) /100WBC PT 12.1 D (11.1-13.3) SEC INR 1.0 (0.9-1.1) D-Dimer High Sensitivty 300 NG/ML O2 Saturation % ABG pH at Pt Temp (7.35-7.45) ABG pCO2 at Pt Temp (32-45) mmHg ABG pO2 at Pt Temp (83-108) mmHg ABG HCO3 (22-26) mmol/L ABG Base Excess (Actual) mmol/L VBG pH 7.43 (7.32-7.43) VBG pCO2 75 mmHg VBG pO2 55 mmHg VBG HCO3 50 H (22-26) mmol/L VBG O2 Saturation 84.0 % VBG Base Excess 21.6 mmol/L Sodium 143 (135-145) mmol/L Potassium 4.7 (3.3-5.1) mmol/L Chloride 93 L (96-108) mmol/L Carbon Dioxide 42 H* (22-29) mmol/L Anion Gap 13 (12-20) BUN 15 (9-16) mg/dL Creatinine 0.71 (0.5-1.4) mg/dL Estim Creat Clear Calc 77.7 Estimated GFR > 60 Random Glucose 112 (60-115) mg/dL Lactic Acid 1.1 (0.5-2.0) mmol/L Calcium 10.1 D (8.4-10.2) mg/dL Magnesium 2.2 (1.6-2.6) mg/dL Total Bilirubin 0.4 (0.0-1.0) mg/dL Direct Bilirubin 0.2 (0.0-0.5) mg/dL AST 24 (5-31) U/L ALT 14 (0-31) U/L Alkaline Phosphatase 85 (39-117) U/L Troponin I High Sens 12.7 D (<3.5-17.0) ng/L B-Natriuretic Peptide 341 H (<100) pg/mL Total Protein 7.7 (6.5-8.0) g/dL Albumin 3.8 (3.5-5.0) g/dL COVID-19 (DONTE) Negative (Negative) COVID-19 Clin Com See Note Influenza Type A (WILMER) Negative (Negative) Influenza Type B (WILMER) Negative (Negative) Influenza A & B Note See Note 06/24/24 Range/Units 20:26 WBC (4.8-10.8) X10*3/uL RBC (4.20-5.50) X10*6/uL Hgb (12.0-16.0) g/dl Hct (37.0-47.0) % MCV (80.0-98.0) fL MCH (27.0-33.0) pg MCHC (31.0-35.0) g/dl RDW (11.0-16.0) % Plt Count (160-400) X10*3/uL MPV (9.4-12.3) fL Immature Gran % (Auto) (0.0-0.4) % Neut % (Auto) (45-73) % Lymph % (Auto) (20-40) % Cuming % (Auto) (2-11) % Eos % (Auto) (0-4) % Baso % (Auto) (0-2) % Lymph # (Auto) (1.2-4.9) X10*3/uL Cuming # (Auto) (0.1-1.2) X10*3/uL Eos # (Auto) (0.0-0.4) X10*3/uL Baso # (Auto) (0.0-0.2) X10*3/uL Abs Immat Gran (auto) (0.00-0.03) X10*3/uL Absolute Neuts (auto) (2.0-8.3) x10*3/uL Absolute Nucleated RBC (0.0-0.012) X10*3/uL Nucleated RBC % (auto) (0.0-0.2) /100WBC PT (11.1-13.3) SEC INR (0.9-1.1) D-Dimer High Sensitivty NG/ML O2 Saturation 91.0 % ABG pH at Pt Temp 7.43 (7.35-7.45) ABG pCO2 at Pt Temp 65 H* (32-45) mmHg ABG pO2 at Pt Temp 65 L (83-108) mmHg ABG HCO3 43 H (22-26) mmol/L ABG Base Excess (Actual) 15.8 mmol/L VBG pH (7.32-7.43) VBG pCO2 mmHg VBG pO2 mmHg VBG HCO3 (22-26) mmol/L VBG O2 Saturation % VBG Base Excess mmol/L Sodium (135-145) mmol/L Potassium (3.3-5.1) mmol/L Chloride (96-108) mmol/L Carbon Dioxide (22-29) mmol/L Anion Gap (12-20) BUN (9-16) mg/dL Creatinine (0.5-1.4) mg/dL Estim Creat Clear Calc Estimated GFR Random Glucose (60-115) mg/dL Lactic Acid (0.5-2.0) mmol/L Calcium (8.4-10.2) mg/dL Magnesium (1.6-2.6) mg/dL Total Bilirubin (0.0-1.0) mg/dL Direct Bilirubin (0.0-0.5) mg/dL AST (5-31) U/L ALT (0-31) U/L Alkaline Phosphatase (39-117) U/L Troponin I High Sens (<3.5-17.0) ng/L B-Natriuretic Peptide (<100) pg/mL Total Protein (6.5-8.0) g/dL Albumin (3.5-5.0) g/dL COVID-19 (DONTE) (Negative) COVID-19 Clin Com Influenza Type A (WILMER) (Negative) Influenza Type B (WILMER) (Negative) Influenza A & B Note Independent Interpretation I performed an independent interpretation of an: CT Scan (My interpretation of CTA: Negative for PE) Radiology Impression Discussion of test interpretation with radiology: I have reviewed the radiologist's reading. Radiologist Impression: FINDINGS: The bolus timing on this study was acceptable for visualization of the pulmonary arterial tree. There are no intraluminal pulmonary arterial filling defects present to suggest pulmonary embolism. Dependent atelectasis and tiny bilateral pleural effusions. No abnormal pulmonary nodules or masses are appreciated. No significant hilar or mediastinal adenopathy. There is no evidence of pleural effusion or pneumothorax. The heart is normal in size. No evidence of ventricular septal bowing or right heart strain. Great vascular calcification within the aorta, great vessels, and coronary vessels small pericardial effusion. No pericardial thickening. Right thyroid fullness partially visualized Limited evaluation of the upper abdominal viscera is unremarkable. CT/CT angio chest PE protocol IMPRESSION: 1. No evidence for pulmonary emboli. Dependent atelectasis and tiny bilateral pleural effusions. 2. VTE: Negative. Independent Historian Clinical information obtained from an independent historian. History obtained from or confirmed by: Other (Son and daughter) Critical Care Time Critical Care Time Critical Care Time: Yes Total Critical Care Time: 75 Attestation: I have personally provided critical care time. Time includes review of lab data, radiology results, discussion with consultants, and monitoring for potential decompensation. Intervention performed as documented. Discharge Plan Discharge Clinical Impression: Chronic lung disease, Atrial fibrillation with RVR, Respiratory failure Patient Disposition: Admitted As Inpatient Print Language: Romanian
[2024-04-08 14:55] LABS: MANUAL DIFF FLAG NO
[2024-04-08 14:58] LABS: Basophils Percent Auto 0.3 % (0-2); Eosinophils Percent Auto 0.5 % (0-4); Hematocrit 36.1 % (37.0-47.0); Hemoglobin 11.1 g/dl (12.0-16.0); Imm Gran Abs Auto 0.02 X10*3/uL (0.00-0.03); Imm Gran Pct Auto 0.3 % (0.0-0.4); Lymphocytes Percent Auto 13.4 % (20-40); Mean Corpuscular HGB Conc 30.7 g/dl (31.0-35.0); Mean Corpuscular Hemoglobin 30.2 pg (27.0-33.0); Mean Corpuscular Volume 98.1 fL (80.0-98.0); Mean Platelet Volume 11.3 fL (9.4-12.3); Monocytes Absolute Auto 0.7 X10*3/uL (0.1-1.2); Monocytes Percent Auto 8.7 % (2-11); Neutrophils Absolute Auto 5.9 x10*3/uL (2.0-8.3); Neutrophils Percent Auto 76.8 % (45-73); Platelet Count 164 X10*3/uL (160-400); Red Blood Count 3.68 X10*6/uL (4.20-5.50); Red Cell Distribution Width 15.1 % (11.0-16.0); White Blood Count 7.6 X10*3/uL (4.8-10.8)
[2024-04-08 15:02] LABS: VBG Base Excess 21.6 mmol/L; VBG HCO3 50 mmol/L (22-26); VBG pCO2 75 mmHg; VBG pH 7.43 (7.32-7.43); VBG pO2 55 mmHg
[2024-04-08 15:03] LABS: Prothrombin Time 12.1 SEC (11.1-13.3)
[2024-04-08 15:11] LABS: Lactic Acid 1.1 mmol/L (0.5-2.0)
[2024-04-08 15:13] LABS: Venous Blood Gas Refer to POC result
[2024-04-08 15:24] LABS: IDNOW Serial# 152EDE1D; Influenza A Negative (Negative); Influenza B2 Negative (Negative)
[2024-04-08 15:24] LABS: IDNOW Serial# 08D9AD1C
[2024-04-08 15:25] LABS: COVID-19 Test Negative (Negative)
[2024-04-08 15:28] LABS: Troponin-I High Sensitivity 12.7 ng/L (<3.5-17.0)
[2024-04-08] MEDS: levoFLOXacin/D5W 500 MG/100 ML PIGGYBACK 100 MG IV (15:39)
[2024-04-08] MEDS: methylPREDNISolone Sod Succ 125 MG/2 ML VIAL IVPUSH (15:39)
[2024-04-08 15:45] LABS: Alanine Aminotransferase 14 U/L (0-31); Albumin Level 3.8 g/dL (3.5-5.0); Alkaline Phosphatase 85 U/L (39-117); Anion Gap 13 (12-20); Aspartate Amino Transferase 24 U/L (5-31); Bilirubin Direct 0.2 mg/dL (0.0-0.5); Bilirubin Total 0.4 mg/dL (0.0-1.0); Blood Urea Nitrogen 15 mg/dL (9-16); Calcium 10.1 mg/dL (8.4-10.2); Carbon Dioxide 42 mmol/L (22-29); Chloride 93 mmol/L (96-108); Creatinine Clr Calc Pharmacy 77.7; Estimated Glomerular Filt Rate > 60; Glucose Random 112 mg/dL (60-115); Magnesium 2.2 mg/dL (1.6-2.6); Potassium 4.7 mmol/L (3.3-5.1); Sodium 143 mmol/L (135-145); Total Protein 7.7 g/dL (6.5-8.0)
--- NOTE | 2024-04-08 16:51 | PC.NURSE ---
Patient attempted to stand/walk a few steps with an assist of 2, patient visible WOB, desat to 85% HR up to 140's sustained, unsteady on feet, provider dr. rome made aware.
--- NOTE | 2024-04-08 17:12 | PC.NURSE ---
Called lab regarding add on labs, bnp and dimer, both okay to be added on per Deedee flood.
[2024-04-08 17:23] LABS: D Dimer High Sensitivity 300 NG/ML
[2024-04-08 17:47] LABS: B Type Natriuretic Peptide 341 pg/mL (<100)
[2024-04-08] MEDS: dilTIAZem HCL 50 MG/10 ML VIAL 10 MG IVPUSH ×2 (18:17→20:20)
[2024-04-08] MEDS: iohexoL 350 MG/ML 100 ML INFUS..BTL IV (18:47)
--- NOTE | 2024-04-08 19:02 | PC.NURSE ---
Patient noted to be desatting to 83 - 84% on her baseline 4L, turned O2 up to 5L to maintain sat between 88 - 90% per Dr. Brownlee.
--- NOTE | 2024-04-08 19:07 | MHC.EDTECH ---
this tech took over care @ 1900, checked in on pt and at this time they had no request, pt sleeping with equal chest rise present, daughter made aware of shift change
--- NOTE | 2024-04-08 20:15 | PC.NURSE ---
Patient placed on CPAP by RT, O2 improved to 88 - 93%, HR still highly variable 90's - 150's, Dr. rome aware, patient to be transferred to ICU.
[2024-04-08 20:34] LABS: ABG Base Excess 15.8 mmol/L; ABG HCO3 43 mmol/L (22-26); ABG pCO2 65 mmHg (32-45); ABG pH 7.43 (7.35-7.45); ABG pO2 65 mmHg (83-108)
[2024-04-08] MEDS: dilTIAZem HCL 125 MG in 0.9 % Sodium Chloride 100 ML 10 MG IVCONT (21:13)
--- NOTE | 2024-04-08 22:02 | P.PNCC_ITS ---
Critical Care Event Note Summary Date of Service: 04/08/24 Code activated: No Narrative: This case had a high probability of a clinically significant, sudden, or life threatening deterioration of this patient's condition which required my full and direct attention, intervention and personal management. Critical Care Time (minutes): 60 Comment: Called by Dr Brownlee to see patient for possible ICU admission due to COPD exacerbation and Afib RVR. Is a lifelong smoker who quit smoking 3 years ago, has underlying COPD and is oxygen dependent at 4 L nasal cannula home, she also has a history of upper GI bleed, prior episodes of hypoxic respiratory failure, obesity, diastolic CHF with preserved ejection fraction, NSTEMI, YUDELKA, osteoporosis among others. The patient had presented due to shortness of breath, patient workup in the ER revealed no pneumonia, no respiratory acidosis per venous blood gas, not pulmonary embolism, no PNA per CTA of the chest. Patient did have atrial fibrillation with rapid ventricular response for which 2 doses of 10 mg of Cardizem were given without successful control of her heart rate however she had also received nebulizers and steroids and ABOUT 1.5 L IVF. Physical exam During my evaluation, the patient does not appear to be in any acute distress, she is on CPAP 10 with FiO2 of 35% satting 92% on room air and her own rate of 16 breaths per minute. Patient is not using accessory muscles, heart is irregular and between 115-120 beats per minute, lung sounds are diminished but there is no wheezing, minor crackles noted at the bases. Abdomen soft, positive bowel sounds throughout. No tenderness. There is no leg edema, no JVD. Images, chart, labs and echo were reviewed in detail by me. ASSESSMENT: ACUTE ON CHRONIC HYPOXIC RESPIRATORY FAILURE MILD ACUTE COPD EXACERBATION DIASTOLIC CHF EXACERBATION ATRIAL FIBRILLATION RAPID VENTRICULAR RESPONSE SUSPECTED OBSTRUCTIVE SLEEP APNEA BOTH CENTRAL AND PERIPHERAL MORBID OBESITY PLAN OF CARE: At this point I do not think the patient needs ICU, I did suggest controlling her heart rate which could easily be achieved by giving her more Cardizem or if needed a Cardizem drip, check a digoxin level and if low she may get 0.5 mg IV push, otherwise continue with her COPD treatment. Certainly if the patient declines or there is any other issues, we will be happy to reassess and if needed transfer the patient to the ICU. In addition, despite the patient being tachycardic, hypoxic and tachypneic I do not believe this is related to sepsis rather this is all reactive to her COPD/CHF exacerbation, as there is no pneumonia, no white count, no fever and no other symptomatology that would go along with an infection. Given the patient more IV fluids would be detrimental to her and would push her into further CHF. 0915 PM in addition, the patient did have a low sat while on CPAP of about 83% but it was noted that the patient was falling asleep with her neck forward causing a mechanical obstruction, this was re-evaluated and taking care of by respiratory therapy, I was reassured that the patient woke up and her sats went back up, recommendation was made to place a pillow between her scapulas so that her chest would move forward head and neck would be backwards to avoid further mechanical obstruction, will recheck a blood gas in the next couple of hours as the initial shows complete compensation of her gases changes. If she decompensates, repeat blood gas and if there is respiratory acidosis or signif icant hypercapnia, patient will be placed on BiPAP continuously and be transferred to the ICU. All of the above information was discussed with Dr. Brownlee as well as with Dr. Hannah internal medicine physician. 0510 AM ON 04/09/2024 Case discussed with the hospitalist Dr. Hannah is concerned that the patient is developing hypercarbia as her repeated gas this morning shows a pH of 7.38 with pCO2 of 78 and PO2 of 39. Patient was seen, she is alert and answering questions appropriately, in no acute distress. Her exam is otherwise unchanged, the patient had been taken off CPAP and placed on OxyMask 4 L since last night, again patient had been falling asleep with her neck clenched over her chest while on OxyMask at the same rate that she uses at home. The patient has not received any nebulizers since her ER evaluation. In addition the patient received IV fluids; Lasix was then given. REVISE THE ASSESSMENT ACUTE ON CHRONIC HYPOXIC RESPIRATORY FAILURE NOW WITH HYPERCARBIA BUT WITHOUT MENTAL STATUS CHANGES OR RESPIRATORY DISTRESS I will place the patient DuoNebs scheduled and albuterol p.r.n., change her Solu-Medrol to every 8 hours rather than every 24 hours. Continue with antibiotics and place her on BiPAP 09/21 for a short period of time as I do not expect her CO2 retention to last; if anything I believe that the patient has a chronic retainer and that is probably her baseline. For the well-being of the patient, the patient will placed on BiPAP and transferred to the ICU. In addition I believe the patient will need further d iuresis. I do not suspect the patient will be in the ICU for too long. The above-mentioned case was discussed in detail with Dr. Ocampo who agrees. Total amount of Critical care time used for critical evaluation of this patient, diagnosis, treatment and coordination of care, review her records and documentation TOTAL CRITICAL CARE TIME 60 MIN discussion and coordination with consultants, completely separate from any procedures performed.
--- NOTE | 2024-04-08 22:28 | PC.NURSE ---
Spoke to patient's daughter/HCP Bethany, very upset crying on phone about her mother's current condition. Updated Bethany about current plan of care, patient will remain in the ED until final decision on whether to send to ICU or not is made. Bethany would like a phone call if her mother's condition declines.
--- NOTE | 2024-04-08 22:51 | PC.NURSE ---
Patient resting quietly on stretcher at this time, complaining of dry lips, informed patient CPAP must stay on until breathing is more stable with consistent O2 sat. Dilt gtt running at 10.
[2024-04-08 23:05] LABS: Digoxin 0.4 ng/mL (0.8-2.0)
[2024-04-08 23:10] LABS: ABG Refer to POC result
[2024-04-09] VITALS (30 sets, daily range): BP systolic 100–143; BP diastolic 38–109; PULSE 95–123; RESP 14–32; TEMP 36.1–37.1; O2SAT 62–94; BMI 40.6; BMI 39.8
--- NOTE | 2024-04-09 03:05 | PC.RT ---
Placed pt on 4L Oxymask post CPAP; RN & MD aware
--- NOTE | 2024-04-09 03:07 | P.HPHOSP_ITS ---
History of Present Illness Date of Service: 04/09/24 Attending physician on admission: Aaliyah Paige Chief Complaint: Shortness of breath Macy Millan is 79 years old woman with past medical history significant for HFpEF, morbid obesity, atrial fibrillation, obstructive sleep apnea noncompliant with CPAP, COPD/chronic respiratory failure on home O2 (4L/min) was brought to the emergency department via EMS due to worsening shortness on breath and episodes of loss of consciousness and woke with history of productive cough. Patient denied palpitations, chest pain, fevers or chills. Patient also denied any acute gastrointestinal or genitourinary symptoms. She is a former tobacco smoker (smoked for 60 years). According to ED provider notes patient was initially wheezing received treatment with IV steroids, IV antibiotics and also IV fluids. She was also placed on rescue CPAP but patient developed somnolence and was started on BiPAP. I was informed that patient might have been having mechanical obstruction. Subsequently, the patient developed rapid atrial fibrillation for which the patient received multiple dose of diltiazem IVP then started on diltiazem IV infusion. Head CTA showed no evidence of PE but did show bilateral tiny pleural effusions. Patient was evaluated by ICU provider and was not considered an ICU candidate. ABGs: PH 7.43, pCO2 65, PO2 65, HCO3 43 ED tx: Diltiazem 10 mg x 3 Diltiazem IV infusion Solu-Medrol 125 mg IV Levaquin 500 mg IV NS 1560 mL IV contrast Review of Systems 2 Review of Systems: Yes Unobtainable due to mental condition [facility] Medical History (Updated 04/09/24 @ 04:37 by Aaliyah Paige MD) History of non-ST elevation myocardial infarction (NSTEMI) (~09/2022) Osteoporosis Leukocytosis Dilated cbd, acquired Cholecystitis Gallstone Pancreatitis WOJCIECH (obstructive sleep apnea) Acute and chronic respiratory failure with hypercapnia Diastolic CHF with preserved left ventricular function, NYHA class 2 Cor pulmonale, chronic Emphysema lung Supplemental oxygen dependent COPD (chronic obstructive pulmonary disease) Family History (Updated 05/19/23 @ 09:52 by Liam Harris MD) Father Myocardial infarction Surgical History (Updated 06/09/23 @ 14:36 by Gretta Thomas PA-C) History of squamous cell carcinoma excision Social History (Reviewed 06/09/23 @ 15:42 by PETRA Payne Household Members: Children Housing: House Do you presently have visiting nurse or other home services: Yes Unable to assess alcohol history related to: Unknown Alcohol intake: never Comment: patient is high fall risk Patient Tobacco Use Status: Former Tobacco user Tobacco use type: Cigarette Smoked in Last 30 Days: No Second Hand Smoke Exposure: No Use of substances other than those prescribed or required for medical reasons: No Substance Use Type: Unknown Advance Directives: No Advance Directives Information Provided: Yes Do you have a plan to hurt others: No Plan service: No Current occupational status: retired Meds Allergies Allergy/AdvReac Type Severity Reaction Status Date / Time ceftriaxone [From Rocephin] Allergy Unknown Unknown Verified 04/08/24 14:24 vancomycin Allergy Unknown itch, Verified 04/08/24 14:24 rash, hives Active Medications: Current Medications Acetaminophen (Acetaminophen 325 Mg Tablet) 975 mg PO Q6H PRN PRN Reason: Pain, Mild (Pain Scale 1-3), fever or headache Furosemide (Furosemide 100 Mg/10 Ml Vial) 60 mg IVPUSH ONCE STA; Protocol Stop: 04/09/24 02:57 Diltiazem HCl 125 mg/ Sodium (Chloride) 125 mls @ 0 mls/hr IVCONT .Q0M KALPESH; Protocol Last Admin: 04/08/24 21:13 Dose: 10 mg/hr, 10 mls/hr Melatonin (Melatonin 3 Mg Tablet) 6 mg PO BEDTIME PRN PRN Reason: Insomnia Sodium Chloride (0.9 % Sodium Chloride Flush 3 Ml Syringe) 3 ml IVFLUSH QSHIFT [facility] Home Medications ?Medication ?Instructions ?Recorded ?Confirmed ?Last Taken ?Type atorvastatin 20 mg tablet 20 mg PO BEDTIME 10/13/20 08/08/23 08/07/23 History omeprazole 20 mg capsule,delayed 20 mg PO DAILY@0630 10/13/20 08/08/23 08/08/23 History release albuterol sulfate 2.5 mg/3 mL 1 vial inhalation Q4H PRN 01/07/22 08/08/23 08/08/23 History (0.083 %) solution for nebulization Shortness Of Breath albuterol sulfate 90 mcg/actuation 2 puff inhalation QID PRN 01/07/22 08/08/23 01/07/22 History aerosol inhaler Shortness Of Breath docusate sodium 100 mg capsule 100 mg PO BID Constipation 01/07/22 08/08/23 08/08/23 History metoprolol tartrate 25 mg tablet 12.5 mg PO BID 01/07/22 08/08/23 08/08/23 History B-complex with vitamin C 1 tab PO DAILY@1500 10/04/22 08/08/23 08/08/23 History aspirin 81 mg tablet,delayed 81 mg PO MOWEFR@2100 10/04/22 08/08/23 08/07/23 History release buspirone 5 mg tablet 5 tab PO BID Anxiety 10/04/22 08/08/23 08/08/23 History cholecalciferol (vitamin D3) 10 10 mcg PO DAILY 10/04/22 08/08/23 08/08/23 History mcg (400 unit) tablet (Vitamin D3) lutein 20 mg capsule 20 mg PO DAILY 10/04/22 08/08/23 08/08/23 History melatonin 5 mg tablet 5 mg PO BEDTIME PRN Insomnia 10/04/22 08/08/23 05/17/23 History tramadol 50 mg tablet 1 tab PO BID PRN Pain 10/04/22 08/08/23 05/18/23 History buspirone 5 mg tablet 5 mg PO DAILY PRN Anxiety 08/08/23 08/08/23 Unknown History hydroxyzine pamoate 25 mg capsule 25 mg PO DAILY PRN anxiety 08/08/23 08/08/23 Unknown History nystatin 100,000 unit/gram topical 1 appl topical BID PRN Rash 08/08/23 08/08/23 Unknown History powder omega 0-hib-obn-fish oil 1,000 mg 1 cap PO DAILY 08/08/23 08/08/23 08/08/23 History (120 mg-180 mg) capsule (Fish Oil) ropinirole 1 mg tablet 0.5 - 1 mg PO BEDTIME PRN Restless 08/08/23 08/08/23 Unknown History Leg(S) torsemide 20 mg tablet 40 mg PO DAILY 08/08/23 08/08/23 08/08/23 History vitamin E (dl, acetate) 400 unit 400 unit PO DAILY 08/08/23 08/08/23 Unknown History chewable tablet Physical Exam 2 Vital Signs and Narrative: Vital Signs: Last Vital Signs Temp 97.6 F 04/09/24 02:53 Pulse 110 H 04/09/24 02:53 Resp 22 H 04/09/24 02:53 BP 123/65 04/09/24 02:53 Pulse Ox 89 L 04/09/24 02:53 O2 Del Method Oxymask 04/09/24 02:53 O2 Flow Rate 4 04/09/24 02:53 Oxygen Flow Rate 4 04/08/24 14:22 BMI result Body Mass Index 41.3 Constitutional - Awake and Alert, No apparent distress. Obese. On Bipap HEENT - PERRL, EOMI. Normal sclera. Heart - RRR (distant sounds) Lungs - Normal lung expansion, Normal respiratory effort, No respiratory distress. Tachypnea. No wheezing. Bibasilar crackles. Abdomen - NT / ND; +BS; No rebound or guarding Extremities - no calf tenderness bilaterally, no swelling Musculoskeletal - Normal inspection, normal ROM Skin - Warm/Dry Neurological - Alert & oriented x3. No focal weakness grossly noted. Psychological - No agitation. Results Labs 04/08/24 14:48 04/08/24 14:48 Labs: Laboratory Results - last 24 hr 04/08/24 04/08/24 04/08/24 14:48 14:52 14:53 MCV 98.1 H MCH 30.2 MCHC 30.7 L RDW 15.1 Plt Count 164 MPV 11.3 Immature Gran % (Auto) 0.3 Neut % (Auto) 76.8 H Lymph % (Auto) 13.4 L [place] % (Auto) 8.7 Eos % (Auto) 0.5 Baso % (Auto) 0.3 Lymph # (Auto) 1.0 L [place] # (Auto) 0.7 Eos # (Auto) 0.0 Baso # (Auto) 0.0 Abs Immat Gran (auto) 0.02 Absolute Neuts (auto) 5.9 Absolute Nucleated RBC 0.000 Nucleated RBC % (auto) 0.0 PT 12.1 D INR 1.0 D-Dimer High Sensitivty 300 O2 Saturation ABG pH at Pt Temp ABG pCO2 at Pt Temp ABG pO2 at Pt Temp ABG HCO3 ABG Base Excess (Actual) VBG pH 7.43 VBG pCO2 75 VBG pO2 55 VBG HCO3 50 H VBG O2 Saturation 84.0 VBG Base Excess 21.6 Anion Gap 13 Estim Creat Clear Calc 77.7 Estimated GFR > 60 Random Glucose 112 Lactic Acid 1.1 Calcium 10.1 D Magnesium 2.2 Total Bilirubin 0.4 Direct Bilirubin 0.2 AST 24 ALT 14 Alkaline Phosphatase 85 Troponin I High Sens 12.7 D B-Natriuretic Peptide 341 H Total Protein 7.7 Albumin 3.8 Digoxin COVID-19 (DONTE) Negative COVID-19 Clin Com See Note Influenza Type A (WILMER) Negative Influenza Type B (WILMER) Negative Influenza A & B Note See Note 04/08/24 04/08/24 20:26 22:45 MCV MCH MCHC RDW Plt Count MPV Immature Gran % (Auto) Neut % (Auto) Lymph % (Auto) [place] % (Auto) Eos % (Auto) Baso % (Auto) Lymph # (Auto) [place] # (Auto) Eos # (Auto) Baso # (Auto) Abs Immat Gran (auto) Absolute Neuts (auto) Absolute Nucleated RBC Nucleated RBC % (auto) PT INR D-Dimer High Sensitivty O2 Saturation 91.0 ABG pH at Pt Temp 7.43 ABG pCO2 at Pt Temp 65 H* ABG pO2 at Pt Temp 65 L ABG HCO3 43 H ABG Base Excess (Actual) 15.8 VBG pH VBG pCO2 VBG pO2 VBG HCO3 VBG O2 Saturation VBG Base Excess Anion Gap Estim Creat Clear Calc Estimated GFR Random Glucose Lactic Acid Calcium Magnesium Total Bilirubin Direct Bilirubin AST ALT Alkaline Phosphatase Troponin I High Sens B-Natriuretic Peptide Total Protein Albumin Digoxin 0.4 L COVID-19 (DONTE) COVID-19 Clin Com Influenza Type A (WILMER) Influenza Type B (WILMER) Influenza A & B Note Imaging Radiologist's Impressions: Impressions Chest X-Ray 04/08/24 15:20 IMPRESSION: 1. Cardiomegaly. 2. Low lung volume. 3. Prominence of bronchovascular markings accentuated by low inspiratory effort. No overt pulmonary edema. Chest CTA 04/08/24 18:48 IMPRESSION: 1. No evidence for pulmonary emboli. Dependent atelectasis and tiny bilateral pleural effusions. 2. VTE: Negative. Assessment and Plan (1) Respiratory failure with hypoxia and hypercapnia: Qualifiers: Chronicity: acute on chronic Qualified Code(s): J96.21 - Acute and chronic respiratory failure with hypoxia; J96.22 - Acute and chronic respiratory failure with hypercapnia Status: Acute (2) Atrial fibrillation with RVR: Status: Acute Plan Macy Wall is 79 y/o woman admitted with: * Severe hypoxemic hypercapnic respiratory failure, acute on chronic secondary to severe obstructive sleep apnea (noncompliant with CPAP use), obesity hypoventilatory syndrome, acute COPD exacerbation likely causing cor pulmonare + acute on chronic diastolic CHF. Admit to hospitalist service. Telemetry. Pulse oximetry. Supplemental oxygen to keep O2 sats >90%. Lasix 60 mg IV stat. Recheck CXR (s/p IVFs) and BNP. Will obtain TTE. Bronchodilator therapy as needed for wheezing only. IV steroids daily. Weight loss will be beneficial. Daily weight. Insert indwelling urinary catheter. I&O. CPAP only was recommended by ICU. Recheck BNP and ABGs. Critical care and cardiology consults. * Atrial fibrillation with rapid ventricular response. Continue diltiazem IV infusion. Digoxin 0.125 mg IV X1 (loading; dig level is low) then 125 mcg PO q2 days. Hesitated about starting anticoagulation (pt was taking Xarelto before but he had an event of GI bleeding on July 2023 (and thrombocytopenia). * Morbid obesity. BMI 41.3 kg/m2. Encourage weight loss. * Hyperlipidemia. Continue statin. * History of GI bleeding. DVT prophylaxis: Heparin subQ GI prophylaxis: PPI Code status: Full Patient will need hospitalization for at least 2 midnights for severe hypoxemic hypercapnic respiratory failure management with supplemental oxygen noninvasive ventilation, IV diuresis bronchodilator therapy, IV steroids and evaluation by subspecialty. Quality Stroke Does the patient have a stroke diagnosis?: No VTE Prior VTE?: No VTE Risk Level:: Medical - moderate - high VTE Device Contraindication: Treatment Not Indicated VTE Drug Contraindication: N/A - Med Ordered
[2024-04-09] MEDS: Digoxin 0.5 MG/2 ML AMPUL 0.125 MG IVPUSH (03:52)
[2024-04-09] MEDS: Furosemide 100 MG/10 ML VIAL 60 MG IVPUSH (03:53)
[2024-04-09 04:27] LABS: Hematocrit 36.6 % (37.0-47.0); Hemoglobin 11.5 g/dl (12.0-16.0); Imm Gran Abs Auto 0.02 X10*3/uL (0.00-0.03); Imm Gran Pct Auto 0.3 % (0.0-0.4); Lymphocytes Absolute Auto 0.5 X10*3/uL (1.2-4.9); Lymphocytes Percent Auto 7.5 % (20-40); MANUAL DIFF FLAG SCAN; Mean Corpuscular HGB Conc 31.4 g/dl (31.0-35.0); Mean Corpuscular Hemoglobin 30.1 pg (27.0-33.0); Mean Corpuscular Volume 95.8 fL (80.0-98.0); Mean Platelet Volume 12.5 fL (9.4-12.3); Monocytes Absolute Auto 0.1 X10*3/uL (0.1-1.2); Monocytes Percent Auto 1.6 % (2-11); Neutrophils Absolute Auto 5.8 x10*3/uL (2.0-8.3); Neutrophils Percent Auto 90.6 % (45-73); Platelet Count 134 X10*3/uL (160-400); Red Blood Count 3.82 X10*6/uL (4.20-5.50); Red Cell Distribution Width 15.1 % (11.0-16.0); SCAN SMEAR FLAG 1; White Blood Count 6.4 X10*3/uL (4.8-10.8)
[2024-04-09 04:37] LABS: ABG Base Excess 17.6 mmol/L; ABG HCO3 46 mmol/L (22-26); ABG pCO2 76 mmHg (32-45); ABG pH 7.38 (7.35-7.45); ABG pO2 39 mmHg (83-108)
[2024-04-09 04:42] LABS: ABG Refer to POC result
[2024-04-09 04:45] LABS: SLIDE REVIEW VERIFIED
[2024-04-09 04:52] LABS: B Type Natriuretic Peptide 230 pg/mL (<100)
[2024-04-09 04:56] LABS: Anion Gap 16 (12-20); Blood Urea Nitrogen 17 mg/dL (9-16); Carbon Dioxide 36 mmol/L (22-29); Chloride 95 mmol/L (96-108); Creatinine Clr Calc Pharmacy 75.6; Estimated Glomerular Filt Rate > 60; Glucose Random 153 mg/dL (60-115); Potassium 4.8 mmol/L (3.3-5.1); Sodium 142 mmol/L (135-145)
[2024-04-09] MEDS: Albuterol/Iprat 2.5/0.5MG 3 ML AMPUL.NEB INHALE ×4 (05:25→20:08)
[2024-04-09] MEDS: dilTIAZem HCL 125 MG in 0.9 % Sodium Chloride 100 ML 10 MG IVCONT (06:01)
[2024-04-09] MEDS: Pantoprazole Sodium 40 MG/10 ML VIAL IVPUSH (06:29)
[2024-04-09] MEDS: methylPREDNISolone Sod Succ 40 MG/ML VIAL IVPUSH ×2 (06:29→15:30)
[2024-04-09] MEDS: Heparin Sodium,Porcine 5,000 UNIT/ML VIAL 5000 UNIT SUBCUT ×2 (08:44→20:41)
[2024-04-09] MEDS: 0.9 % Sodium Chloride Flush 3 ML SYRINGE IVFLUSH ×2 (08:46→15:41)
[2024-04-09] MEDS: dilTIAZem HCL SR 60 MG CAP.ER.12H PO ×2 (08:46→20:41)
[2024-04-09] MEDS: 0.9 % Sodium Chloride 1,000 ML 999 ML IVCONT (09:00)
--- NOTE | 2024-04-09 09:18 | PHA.MEDREC ---
Pharmacy Consult ? Medication Reconciliation Pharmacy has completed the medication reconciliation. Spoke with Bethany . Stated she takes Buspar in the morning and night, leaves one out if needed during the day PRN.
--- NOTE | 2024-04-09 09:46 | MHC.CLN ---
RE: CONSULT FOR WT LOSS CURRENT WT 108.5KG (04/09/24) PREVIOUS WT 113.4KG (03/07/23) PT WITH 4% NONSIGNIFICANT WT LOSS X1 YEAR CONTINUE CURRENT CARE PLAN NO NEW ORDERS
--- NOTE | 2024-04-09 09:48 | MHC.CM.PN ---
IMM DELIVERED TO PT IN ICU. PT LIVES WITH DAUGHTER WHO IS CAREGIVER. PT USES WALKER, HAS MOD BR AND IS ON HOME 02 AT 4 L/MIN VIA [facility]. +HCP ON FILE. PCP DR. FREY DP: PT WILL HAVE A P.T. EVAL TO DETERMINE NEEDS/DC DISPO. DAUGHTER STATES SHE NEEDS MORE HELP. REFERRAL SENT TO [facility] .PT IS OPEN TO A VNA SHOULD SHE NEED IT AND HAS NO PREFERENCE. SHE HAS HAD [facility]D VNA AND [facility] IN THE PAST. FAMILY WILL TRANSPORT VS BLS. CM WILL CONTINUE TO FOLLOW FOR ANY CHANGE TO DC PLAN/NEEDS.
[2024-04-09] MEDS: Digoxin 0.5 MG/2 ML AMPUL 0.25 MG IVPUSH ×2 (10:48→15:32)
--- NOTE | 2024-04-09 11:28 | PM.CNCAR ---
History of Present Illness History of Present Illness Date of Service: 04/09/24 Requesting physician: Delon Ocampo Consult reason: atrial fibrillation and congestive heart failure Chief complaint: Hypoxic and hypercapnic respiratory failure Narrative: I was consulted to see Macy in cardiology consultation today for management of atrial fibrillation rapid ventricular response. She has prior history of chronic persistent atrial fibrillation with significant left atrial enlargement by last echocardiogram, chronic respiratory failure related to COPD on home oxygen at 4 liters/minute [id number], not on oral anticoagulation due to prior GI bleed, heart failure with preserved ejection fraction, morbid obesity, sleep apnea but she has not able to tolerate CPAP therapy and currently non on it, prior NSTEMI suspected to be secondary to hypoxemic respiratory failure although there is no clear history of CAD and no workup has been performed. Last echocardiogram in May 2023 showing normal LV ejection fraction 55-60% with severely dilated left atrium with moderate aortic and mitral annular calcification. Patient came to the hospital with worsening shortness of breath and episodes of loss of consciousness and woke up with productive cough. Patient denies any chest pain, palpitations, fever or chills. Has any other symptoms. In the ED she was noted to be in acute hypoxemic and hypercapnic respiratory failure and was treated initially with CPAP but did not tolerate as she became somnolent and was initially switch to BiPAP. She has been now downgraded to nasal cannula. She was also noted to have atrial fibrillation rapid ventricular response. She was started on Cardizem drip which has been down graded to 10 mg an hour this morning after getting her p.o. medications. However she still remains elevated heart rate heart rate 100-140 beats per minute at bedside when I was evaluating her. She denies any palpitations. She has not even aware that she had atrial fibrillation which is strange. She says she was at 1 point on Xarelto but does not recall why this was stopped but it appears that she had GI bleed last year and since then she has not been oral anticoagulation therapy. Hemoglobin hematocrit has been stable. She denies any bleeding issues. Chest CTA shows no evidence of pulmonary embolism. She is currently in ICU for possibly BiPAP therapy but appears much more alert and provides good history. Review of Systems Constitutional: Constitutional: Reports lethargy and Reports weakness Cardiovascular: Cardiovascular: Denies chest pain, Denies leg edema, Reports Loss of Consciousness, Denies palpitations and Reports dyspnea on exertion Respiratory: Respiratory: Reports cough, Reports excessive phlegm production, Reports dyspnea on exertion and Reports wheezing Gastrointestinal: Gastrointestinal: Reports no additional gastrointestinal complaints Genitourinary: Genitourinary: Reports no additional female genitourinary complaints Musculoskeletal: Musculoskeletal: Reports no additional musculoskeletal complaints Integumentary/Breasts: Skin/Breast: Reports system reviewed and no additional complaints, except as docu Neurologic: Reports system reviewed and no additional complaints, except as documented and Reports weakness Psychiatric: Psychiatric: Reports no additional psychiatric complaints Endocrine: Endocrine: Denies palpitations Allergic/Immunologic: Allergic/Immunologic: Reports wheezing PMFSH Past Medical History Medical History History of non-ST elevation myocardial infarction (NSTEMI) (~09/2022) Osteoporosis Leukocytosis Dilated cbd, acquired Cholecystitis Gallstone Pancreatitis WOJCIECH (obstructive sleep apnea) Acute and chronic respiratory failure with hypercapnia Diastolic CHF with preserved left ventricular function, NYHA class 2 Cor pulmonale, chronic Emphysema lung Supplemental oxygen dependent COPD (chronic obstructive pulmonary disease) Family History Family History Father Myocardial infarction Surgical History Surgical History History of squamous cell carcinoma excision Social History Social History Household Members: Children Household Members Other:: 2 daughter Housing: House Do you presently have visiting nurse or other home services: No Unable to assess alcohol history related to: Unknown Alcohol intake: never Comment: patient is high fall risk Patient Tobacco Use Status: Former Tobacco user Tobacco use type: Cigarette Cigarette Packs Per Day: 1 Cigarettes Per Day: 20.0 Years Smoked: 60 Second Hand Smoke Exposure: No Substance Use Type: Unknown service: No Current occupational status: retired Meds Allergies Allergy/AdvReac Type Severity Reaction Status Date / Time ceftriaxone [From Rocephin] Allergy Unknown Unknown Verified 04/08/24 14:24 vancomycin Allergy Unknown itch, Verified 04/08/24 14:24 rash, hives Active Medications: Current Medications Acetaminophen (Acetaminophen 325 Mg Tablet) 975 mg PO Q6H PRN PRN Reason: Pain, Mild (Pain Scale 1-3), fever or headache Albuterol Sulfate (Albuterol Sulfate (0.083%) 2.5 Mg/3 Ml Vial.Neb) 2.5 mg INHALE Q3H PRN PRN Reason: Wheezing Albuterol/Ipratropium (Albuterol/Iprat 2.5/0.5mg 3 Ml Ampul.Neb) 3 ml INHALE RQ4H WHILE AWAKE [facility] Last Admin: 04/09/24 05:25 Dose: 3 ml Digoxin (Digoxin 0.125 Mg Tablet) 0.125 mg PO Q2D [facility] Digoxin (Digoxin 0.5 Mg/2 Ml Ampul) 0.25 mg IVPUSH Q6H [facility] Stop: 04/09/24 15:46 Last Admin: 04/09/24 10:48 Dose: 0.25 mg Diltiazem HCl (Diltiazem Hcl Sr 60 Mg Cap.Er.12h) 60 mg PO BID [facility]; Protocol Last Admin: 04/09/24 08:46 Dose: 60 mg Furosemide (Furosemide 40 Mg/4 Ml Vial) 40 mg IVPUSH DAILY [facility]; Protocol Heparin Sodium (Porcine) (Heparin Sodium,Porcine 5,000 Unit/Ml Vial) 5,000 unit SUBCUT Q12H [facility] Last Admin: 04/09/24 08:44 Dose: 5,000 unit Diltiazem HCl 125 mg/ Sodium (Chloride) 125 mls @ 0 mls/hr IVCONT .Q0M [facility]; Protocol Last Admin: 04/09/24 06:01 Dose: 10 mg/hr, 10 mls/hr Melatonin (Melatonin 3 Mg Tablet) 6 mg PO BEDTIME PRN PRN Reason: Insomnia Methylprednisolone Sodium Succinate (Methylprednisolone Sod Succ 40 Mg/Ml Vial) 40 mg IVPUSH Q8H [facility] Last Admin: 04/09/24 06:29 Dose: 40 mg Pantoprazole Sodium (Pantoprazole Sodium 40 Mg/10 Ml Vial) 40 mg IVPUSH DAILY@0630 [facility] Last Admin: 04/09/24 06:29 Dose: 40 mg Sodium Chloride (0.9 % Sodium Chloride Flush 3 Ml Syringe) 3 ml IVFLUSH QSHIFT [facility] Last Admin: 04/09/24 08:46 Dose: 3 ml Home Medications ?Medication ?Instructions ?Recorded ?Confirmed ?Last Taken ?Type atorvastatin 20 mg tablet 20 mg PO BEDTIME 10/13/20 04/09/24 04/08/24 09:00 History omeprazole 20 mg capsule,delayed 20 mg PO DAILY@0630 10/13/20 04/09/24 04/08/24 09:00 History release albuterol sulfate 2.5 mg/3 mL 1 vial inhalation Q4H PRN 01/07/22 04/09/24 04/08/24 09:00 History (0.083 %) solution for nebulization Shortness Of Breath docusate sodium 100 mg capsule 100 mg PO TID Constipation 01/07/22 04/09/24 04/08/24 09:00 History metoprolol tartrate 25 mg tablet 12.5 mg PO BID 01/07/22 04/09/24 04/08/24 09:00 History B-complex with vitamin C 1 tab PO DAILY 10/04/22 04/09/24 04/08/24 09:00 History aspirin 81 mg tablet,delayed 81 mg PO BEDTIME 10/04/22 04/09/24 04/08/24 09:00 History release buspirone 5 mg tablet 5 tab PO BID Anxiety 10/04/22 04/09/24 04/08/24 09:00 History cholecalciferol (vitamin D3) 10 10 mcg PO DAILY 10/04/22 04/09/24 04/08/24 09:00 History mcg (400 unit) tablet (Vitamin D3) lutein 20 mg capsule 20 mg PO DAILY 10/04/22 04/09/24 04/08/24 09:00 History melatonin 5 mg tablet 5 mg PO BEDTIME PRN Insomnia 10/04/22 04/09/24 04/08/24 09:00 History tramadol 50 mg tablet 1 tab PO BID PRN Pain 10/04/22 04/09/24 04/08/24 09:00 History buspirone 5 mg tablet 5 mg PO DAILY PRN Anxiety 08/08/23 04/09/24 04/08/24 09:00 History hydroxyzine pamoate 25 mg capsule 25 mg PO DAILY PRN anxiety 08/08/23 04/09/24 04/08/24 09:00 History nystatin 100,000 unit/gram topical 1 appl topical BID PRN Rash 08/08/23 04/09/24 04/08/24 09:00 History powder omega 2-skb-xnf-fish oil 1,000 mg 1 cap PO DAILY 08/08/23 04/09/24 04/08/24 09:00 History (120 mg-180 mg) capsule (Fish Oil) torsemide 20 mg tablet 40 mg PO DAILY 08/08/23 04/09/24 04/08/24 09:00 History acetaminophen 325 mg tablet 650 mg PO Q4H PRN Pain 04/09/24 04/09/24 Unknown History digoxin 125 mcg (0.125 mg) tablet 0.125 mg PO Q48H 04/09/24 04/09/24 04/08/24 09:00 History vitamin E 268 mg (400 unit) capsule 268 mg PO DAILY 04/09/24 04/09/24 04/08/24 09:00 History vitamins A,C,Z-kdip-fgldeg 2,148 2 tab PO BID 04/09/24 04/09/24 04/08/24 History mcg-113 mg-45 mg-17.4 mg tablet (PreserVision AREDS) Physical Exam Vital Signs: Vital Signs: Last Vital Signs Temp 97.9 F 04/09/24 08:00 Pulse 108 H 04/09/24 11:00 Resp 21 H 04/09/24 11:00 BP 125/75 04/09/24 11:00 Pulse Ox 92 04/09/24 11:00 O2 Del Method Nasal Cannula 04/09/24 11:00 O2 Flow Rate 4 04/09/24 11:00 FiO2 35 04/09/24 07:00 Oxygen Flow Rate 4 04/08/24 14:22 BMI result Body Mass Index 39.8 Const: General: cooperative, comfortable, alert, awake and in distress mild and respiratory Nutritional Appearance: obese Orientation/consciousness: patient oriented x3 HEENT: Head: Yes normocephalic and Yes atraumatic Neck: Neck: Yes trachea midline, Yes supple and Yes no JVD Resp: Effort & Inspection: normal respiratory effort Auscultation: crackles (coarse) bilateral at the base and diminished lung sounds Cardio: Jugular venous distension: no JVD Rate: tachycardic Rhythm: abnormal rhythm irregularly irregular Heart sounds: S1 normal heart sound present, S2 normal heart sound present, no click, no gallops and Murmur heart sound present systolic early GI: Auscultation: normal bowel sounds Skin: General skin exam: no rashes or lesions noted Neuro: General: patient oriented x3 and no focal motor deficits Extrem: General: Yes no clubbing, cyanosis or edema Objective Labs and Meds 04/09/24 04:05 04/09/24 04:05 Lab results: Laboratory Results - last 24 hr 04/08/24 04/08/24 04/08/24 14:48 14:52 14:53 WBC 7.6 RBC 3.68 L Hgb 11.1 L Hct 36.1 L MCV 98.1 H MCH 30.2 MCHC 30.7 L RDW 15.1 Plt Count 164 MPV 11.3 Immature Gran % (Auto) 0.3 Neut % (Auto) 76.8 H Lymph % (Auto) 13.4 L [place] % (Auto) 8.7 Eos % (Auto) 0.5 Baso % (Auto) 0.3 Lymph # (Auto) 1.0 L [place] # (Auto) 0.7 Eos # (Auto) 0.0 Baso # (Auto) 0.0 Abs Immat Gran (auto) 0.02 Absolute Neuts (auto) 5.9 Absolute Nucleated RBC 0.000 Nucleated RBC % (auto) 0.0 Smear Tech's Comments PT 12.1 D INR 1.0 D-Dimer High Sensitivty 300 O2 Saturation ABG pH at Pt Temp ABG pCO2 at Pt Temp ABG pO2 at Pt Temp ABG HCO3 ABG Base Excess (Actual) VBG pH 7.43 VBG pCO2 75 VBG pO2 55 VBG HCO3 50 H VBG O2 Saturation 84.0 VBG Base Excess 21.6 Sodium 143 Potassium 4.7 Chloride 93 L Carbon Dioxide 42 H* Anion Gap 13 BUN 15 Creatinine 0.71 Estim Creat Clear Calc 77.7 Estimated GFR > 60 Random Glucose 112 Lactic Acid 1.1 Calcium 10.1 D Magnesium 2.2 Total Bilirubin 0.4 Direct Bilirubin 0.2 AST 24 ALT 14 Alkaline Phosphatase 85 Troponin I High Sens 12.7 D B-Natriuretic Peptide 341 H Total Protein 7.7 Albumin 3.8 Digoxin COVID-19 (DONTE) Negative COVID-19 Clin Com See Note Influenza Type A (WILMER) Negative Influenza Type B (WILMER) Negative Influenza A & B Note See Note 04/08/24 04/08/24 04/09/24 20:26 22:45 04:05 WBC 6.4 RBC 3.82 L Hgb 11.5 L Hct 36.6 L MCV 95.8 MCH 30.1 MCHC 31.4 RDW 15.1 Plt Count 134 L MPV 12.5 H Immature Gran % (Auto) 0.3 Neut % (Auto) 90.6 H Lymph % (Auto) 7.5 L [place] % (Auto) 1.6 L Eos % (Auto) 0.0 Baso % (Auto) 0.0 Lymph # (Auto) 0.5 L [place] # (Auto) 0.1 Eos # (Auto) 0.0 Baso # (Auto) 0.0 Abs Immat Gran (auto) 0.02 Absolute Neuts (auto) 5.8 Absolute Nucleated RBC 0.000 Nucleated RBC % (auto) 0.0 Smear Tech's Comments VERIFIED PT INR D-Dimer High Sensitivty O2 Saturation 91.0 ABG pH at Pt Temp 7.43 ABG pCO2 at Pt Temp 65 H* ABG pO2 at Pt Temp 65 L ABG HCO3 43 H ABG Base Excess (Actual) 15.8 VBG pH VBG pCO2 VBG pO2 VBG HCO3 VBG O2 Saturation VBG Base Excess Sodium 142 Potassium 4.8 Chloride 95 L Carbon Dioxide 36 H Anion Gap 16 BUN 17 H Creatinine 0.73 Estim Creat Clear Calc 75.6 Estimated GFR > 60 Random Glucose 153 H Lactic Acid Calcium 9.0 D Magnesium Total Bilirubin Direct Bilirubin AST ALT Alkaline Phosphatase Troponin I High Sens B-Natriuretic Peptide Total Protein Albumin Digoxin 0.4 L COVID-19 (DONTE) COVID-19 Clin Com Influenza Type A (WILMER) Influenza Type B (WILMER) Influenza A & B Note 04/09/24 04/09/24 04:22 04:27 WBC RBC Hgb Hct MCV MCH MCHC RDW Plt Count MPV Immature Gran % (Auto) Neut % (Auto) Lymph % (Auto) [place] % (Auto) Eos % (Auto) Baso % (Auto) Lymph # (Auto) [place] # (Auto) Eos # (Auto) Baso # (Auto) Abs Immat Gran (auto) Absolute Neuts (auto) Absolute Nucleated RBC Nucleated RBC % (auto) Smear Tech's Comments PT INR D-Dimer High Sensitivty O2 Saturation 61.0 ABG pH at Pt Temp 7.38 ABG pCO2 at Pt Temp 76 H* ABG pO2 at Pt Temp 39 L* ABG HCO3 46 H ABG Base Excess (Actual) 17.6 VBG pH VBG pCO2 VBG pO2 VBG HCO3 VBG O2 Saturation VBG Base Excess Sodium Potassium Chloride Carbon Dioxide Anion Gap BUN Creatinine Estim Creat Clear Calc Estimated GFR Random Glucose Lactic Acid Calcium Magnesium Total Bilirubin Direct Bilirubin AST ALT Alkaline Phosphatase Troponin I High Sens B-Natriuretic Peptide 230 H Total Protein Albumin Digoxin COVID-19 (DONTE) COVID-19 Clin Com Influenza Type A (WILMER) Influenza Type B (WILMER) Influenza A & B Note Imaging Radiologist's impression: Impressions Chest X-Ray 04/08/24 15:20 IMPRESSION: 1. Cardiomegaly. 2. Low lung volume. 3. Prominence of bronchovascular markings accentuated by low inspiratory effort. No overt pulmonary edema. Chest CTA 04/08/24 18:48 IMPRESSION: 1. No evidence for pulmonary emboli. Dependent atelectasis and tiny bilateral pleural effusions. 2. VTE: Negative. Chest X-Ray 04/09/24 03:20 IMPRESSION: Cardiomegaly with mild interstitial edema and trace pleural effusions, similar to prior. Assessment and Plan (1) Atrial fibrillation with RVR: Status: Acute Atrial fibrillation rapid ventricular response most likely due to acute medical/pulmonary exacerbation. At this point time can continue oral Cardizem therapy and slowly taper IV Cardizem therapy. Would also rapidly digitalize her with 0.5 mg 4 x 0.25 mg every 6 hours for 3 doses. May need oral digoxin therapy to maintain rate control. Consider switching to Xopenex to reduce rapid heart rate with atrial fibrillation. Continue management of underlying acute pulmonary exacerbation. Consider restarting oral anticoagulation therapy and switching her to Eliquis 5 mg b.i.d.. (2) Respiratory failure with hypoxia and hypercapnia: Qualifiers: Chronicity: acute on chronic Qualified Code(s): J96.21 - Acute and chronic respiratory failure with hypoxia; J96.22 - Acute and chronic respiratory failure with hypercapnia Status: Acute Acute respiratory failure with hypercapnia with some component of congestive heart failure. She still has coarse crackles which appear more atelectatic or related to COPD rather than heart failure. Although will continue IV diuresis for 1 more day. Continue nebulizer therapy. Encouraged to use CPAP therapy at nighttime if possible can switch to BiPAP therapy, she says she was able to tolerate this well. On a long-term continue to use oxygen therapy. Will follow up if need be. Thank you for allowing me to partake in the care Procedures Date of Service Date of Service: 04/09/24
[2024-04-09 11:32] LABS: ABG Base Excess 16.6 mmol/L; ABG HCO3 42 mmol/L (22-26); ABG pCO2 58 mmHg (32-45); ABG pH 7.47 (7.35-7.45); ABG pO2 71 mmHg (83-108)
[2024-04-09 12:07] LABS: ABG Refer to POC result
[2024-04-09] MEDS: Acetaminophen 325 MG TABLET 975 MG PO ×2 (13:23→22:30)
--- NOTE | 2024-04-09 15:50 | P.PNCC_ITS ---
Subjective Subjective Date of Service: 04/09/24 Critical Care Time (minutes): 35 Comment: Breathing status improved, off of BiPAP support this morning Continues to be tachycardic, on diltiazem drip Physical Exam 2 Vital Signs: Vital Signs: Last Vital Signs Temp 98.5 F 04/09/24 12:00 Pulse 110 H 04/09/24 15:21 Resp 19 04/09/24 15:21 BP 142/48 H 04/09/24 15:00 Pulse Ox 90 L 04/09/24 15:00 O2 Del Method Nasal Cannula 04/09/24 15:00 O2 Flow Rate 4 04/09/24 15:00 FiO2 35 04/09/24 07:00 Oxygen Flow Rate 4 04/08/24 14:22 BMI result Body Mass Index 39.8 General: acute distress, ill appearing and tired appearing Nutritional Appearance: well nourished and overweight Eyes: appearance normal, both eyes and all related structures; Alignment and Position: alignment normal and position normal Neck: No lymphadenopathy, no thyromegaly Resp: bilateral air entry equal, occasional added sounds present Cardio: Regular rate, regular rhythm; Heart sounds: S1 normal heart sound present and S2 normal heart sound present GI: soft, nontender, no guarding, no hepatosplenomegaly : bladder normal to inspection, bladder normal to palpation, no renal angle tenderness Skin: no rashes or lesions noted and elasticity normal Neuro: oriented to person, oriented to place, oriented to time and moves all extremities Objective Data Labs 04/09/24 04:05 04/09/24 04:05 Labs: Laboratory Results - last 24 hr 04/08/24 04/08/24 04/08/24 14:48 20:26 22:45 WBC RBC Hgb Hct MCV MCH MCHC RDW Plt Count MPV Immature Gran % (Auto) Neut % (Auto) Lymph % (Auto) [place] % (Auto) Eos % (Auto) Baso % (Auto) Lymph # (Auto) [place] # (Auto) Eos # (Auto) Baso # (Auto) Abs Immat Gran (auto) Absolute Neuts (auto) Absolute Nucleated RBC Nucleated RBC % (auto) Smear Tech's Comments D-Dimer High Sensitivty 300 O2 Saturation 91.0 ABG pH at Pt Temp 7.43 ABG pCO2 at Pt Temp 65 H* ABG pO2 at Pt Temp 65 L ABG HCO3 43 H ABG Base Excess (Actual) 15.8 Sodium Potassium Chloride Carbon Dioxide Anion Gap BUN Creatinine Estim Creat Clear Calc Estimated GFR Random Glucose Calcium B-Natriuretic Peptide 341 H Digoxin 0.4 L 04/09/24 04/09/24 04/09/24 04:05 04:22 04:27 WBC 6.4 RBC 3.82 L Hgb 11.5 L Hct 36.6 L MCV 95.8 MCH 30.1 MCHC 31.4 RDW 15.1 Plt Count 134 L MPV 12.5 H Immature Gran % (Auto) 0.3 Neut % (Auto) 90.6 H Lymph % (Auto) 7.5 L [place] % (Auto) 1.6 L Eos % (Auto) 0.0 Baso % (Auto) 0.0 Lymph # (Auto) 0.5 L [place] # (Auto) 0.1 Eos # (Auto) 0.0 Baso # (Auto) 0.0 Abs Immat Gran (auto) 0.02 Absolute Neuts (auto) 5.8 Absolute Nucleated RBC 0.000 Nucleated RBC % (auto) 0.0 Smear Tech's Comments VERIFIED D-Dimer High Sensitivty O2 Saturation 61.0 ABG pH at Pt Temp 7.38 ABG pCO2 at Pt Temp 76 H* ABG pO2 at Pt Temp 39 L* ABG HCO3 46 H ABG Base Excess (Actual) 17.6 Sodium 142 Potassium 4.8 Chloride 95 L Carbon Dioxide 36 H Anion Gap 16 BUN 17 H Creatinine 0.73 Estim Creat Clear Calc 75.6 Estimated GFR > 60 Random Glucose 153 H Calcium 9.0 D B-Natriuretic Peptide 230 H Digoxin 04/09/24 11:24 WBC RBC Hgb Hct MCV MCH MCHC RDW Plt Count MPV Immature Gran % (Auto) Neut % (Auto) Lymph % (Auto) [place] % (Auto) Eos % (Auto) Baso % (Auto) Lymph # (Auto) [place] # (Auto) Eos # (Auto) Baso # (Auto) Abs Immat Gran (auto) Absolute Neuts (auto) Absolute Nucleated RBC Nucleated RBC % (auto) Smear Tech's Comments D-Dimer High Sensitivty O2 Saturation 94.0 ABG pH at Pt Temp 7.47 H ABG pCO2 at Pt Temp 58 H ABG pO2 at Pt Temp 71 L ABG HCO3 42 H ABG Base Excess (Actual) 16.6 Sodium Potassium Chloride Carbon Dioxide Anion Gap BUN Creatinine Estim Creat Clear Calc Estimated GFR Random Glucose Calcium B-Natriuretic Peptide Digoxin Progress Note: A&P Assessment and plan (1) Respiratory failure with hypoxia and hypercapnia: Status: Acute (2) Atrial fibrillation with RVR: Status: Acute (3) Chronic lung disease: Status: Acute (4) Anemia: Status: Acute (5) COPD (chronic obstructive pulmonary disease): Status: Acute (6) Acute and chronic respiratory failure with hypoxia: Status: Acute Plan Macy Millan is 79-year-old lady with past medical history of COPD on home oxygen, obstructive sleep apnea on home CPAP, heart failure with preserved ejection fraction, atrial fibrillation presented to the hospital with altered sensorium, difficulty breathing. Acute on chronic hypoxic respiratory failure: Possibly due to COPD exacerbation Taken off of BiPAP support this morning Continue Solu-Medrol Duo nebs around the clock levofloxacin for antibiotics Atrial fibrillation with RVR: Digitalizing the patient Currently on diltiazem drip, we will overlap with oral diltiazem to titrate the drip off We will do amiodarone bolus doses Obstructive sleep apnea: Needs nighttime CPAP support Quality Stroke Does the patient have a stroke diagnosis?: No VTE Prior VTE?: No VTE Risk Level:: Medical - moderate - high VTE Device Contraindication: Treatment Not Indicated VTE Drug Contraindication: N/A - Med Ordered
[2024-04-09] MEDS: Melatonin 3 MG TABLET 6 MG PO (22:30)
[2024-04-10] VITALS (17 sets, daily range): BP systolic 138–176; BP diastolic 62–86; PULSE 83–154; RESP 16–25; TEMP 36–36.6; O2SAT 87–95
[2024-04-10] MEDS: 0.9 % Sodium Chloride Flush 3 ML SYRINGE IVFLUSH ×3 (00:37→21:41)
[2024-04-10] MEDS: Pantoprazole Sodium 40 MG/10 ML VIAL IVPUSH (06:07)
[2024-04-10] MEDS: Albuterol/Iprat 2.5/0.5MG 3 ML AMPUL.NEB INHALE (08:09)
[2024-04-10] MEDS: dilTIAZem HCL SR 60 MG CAP.ER.12H PO ×4 (08:18→21:43)
[2024-04-10] MEDS: Furosemide 40 MG/4 ML VIAL IVPUSH (08:18)
[2024-04-10] MEDS: methylPREDNISolone Sod Succ 40 MG/ML VIAL IVPUSH (08:18)
[2024-04-10] MEDS: Heparin Sodium,Porcine 5,000 UNIT/ML VIAL 5000 UNIT SUBCUT ×2 (08:18→21:40)
[2024-04-10] MEDS: Digoxin 0.125 MG TABLET PO (08:42)
--- NOTE | 2024-04-10 10:31 | MHC.CM.PN ---
Per MD rounds, Patient will be ready to discharge in 1-2 days. A PT eval is planned to assist with disposition. DP Home VMA vs STR. CM will follow.
[2024-04-10] MEDS: Acetaminophen 325 MG TABLET 975 MG PO ×2 (10:55→21:41)
--- NOTE | 2024-04-10 11:16 | HO.PM.IMPN ---
Subjective Subjective Date of Service: 04/10/24 Interval History: seen and evaluated this morning breathing better overall having Afib RvR tolerating diet Review of Systems Review of Systems: Yes all other systems are reviewed and are negative Physical Exam Vital Signs: Vital Signs: Last Vital Signs Temp 96.9 F 04/10/24 07:51 Pulse 125 H 04/10/24 08:18 Resp 20 04/10/24 08:11 BP 146/62 H 04/10/24 08:18 Pulse Ox 95 04/10/24 07:51 O2 Del Method Nasal Cannula 04/10/24 07:51 O2 Flow Rate 4 04/10/24 07:51 FiO2 35 04/09/24 07:00 Oxygen Flow Rate 4 04/08/24 14:22 BMI result Body Mass Index 39.8 Const: Other: Constitutional : Awake, interactive, not in distress Neck : Normal inspection, Supple Cardiovascular : irregular irregular, no JVP, no lower extremity edema Respiratory : decreased bilateral air entry, bilateral expiratory wheezes Gastrointestinal: soft, lax, Normal bowel sounds, Non tender Skin : Warm, Dry Neurological : Alert & oriented x3, No focal deficit Objective Data Active Medications Acetaminophen (Acetaminophen 325 Mg Tablet) 975 mg PO Q6H PRN PRN Reason: Pain, Mild (Pain Scale 1-3), fever or headache Last Admin: 04/10/24 10:55 Dose: 975 mg Documented By: SHER Albuterol Sulfate (Albuterol Sulfate (0.083%) 2.5 Mg/3 Ml Vial.Neb) 2.5 mg INHALE Q3H PRN PRN Reason: Wheezing Digoxin (Digoxin 0.125 Mg Tablet) 0.125 mg PO Q2D [facility] Last Admin: 04/10/24 08:42 Dose: 0.125 mg Documented By: SHER Diltiazem HCl (Diltiazem Hcl Sr 60 Mg Cap.Er.12h) 60 mg PO QID [facility]; Protocol Last Admin: 04/10/24 09:35 Dose: Not Given Documented By: SHER Non-Admin Reason: gave with old order Furosemide (Furosemide 40 Mg/4 Ml Vial) 40 mg IVPUSH DAILY [facility]; Protocol Last Admin: 04/10/24 08:18 Dose: 40 mg Documented By: SHER Heparin Sodium (Porcine) (Heparin Sodium,Porcine 5,000 Unit/Ml Vial) 5,000 unit SUBCUT Q12H [facility] Last Admin: 04/10/24 08:18 Dose: 5,000 unit Documented By: SHER Ipratropium [place] (Ipratropium [place] 0.5 Mg/2.5 Ml Solution) 0.5 mg INHALE RQ4H WHILE AWAKE [facility] Levalbuterol HCl (Levalbuterol Hcl 1.25 Mg/3 Ml Vial.Neb) 1.25 mg INHALE RTID [facility] Last Admin: 04/10/24 11:08 Dose: Not Given Documented By: LATA Non-Admin Reason: Administered by Alternate Route Melatonin (Melatonin 3 Mg Tablet) 6 mg PO BEDTIME PRN PRN Reason: Insomnia Last Admin: 04/09/24 22:30 Dose: 6 mg Documented By: HERMELINDO Methylprednisolone Sodium Succinate (Methylprednisolone Sod Succ 40 Mg/Ml Vial) 40 mg IVPUSH DAILY [facility] Last Admin: 04/10/24 08:18 Dose: 40 mg Documented By: SHER Pantoprazole Sodium (Pantoprazole Sodium 40 Mg/10 Ml Vial) 40 mg IVPUSH DAILY@0630 [facility] Last Admin: 04/10/24 06:07 Dose: 40 mg Documented By: YUE Sodium Chloride (0.9 % Sodium Chloride Flush 3 Ml Syringe) 3 ml IVFLUSH QSHIFT [facility] Last Admin: 04/10/24 08:19 Dose: 3 ml Documented By: SHER Labs 04/09/24 04:05 04/09/24 04:05 Labs: Laboratory Results - last 24 hr 04/09/24 11:24 O2 Saturation 94.0 ABG pH at Pt Temp 7.47 H ABG pCO2 at Pt Temp 58 H ABG pO2 at Pt Temp 71 L ABG HCO3 42 H ABG Base Excess (Actual) 16.6 Microbiology Microbiology Results: Microbiology 04/08/24 14:48 Blood Culture - Preliminary Blood - Venous No growth after 24 hours. 04/08/24 14:48 Blood Culture - Preliminary Blood - Venous No growth after 24 hours. Assessment and Plan (1) Respiratory failure with hypoxia and hypercapnia: Status: Acute (2) Atrial fibrillation with RVR: Status: Acute (3) COPD (chronic obstructive pulmonary disease): Status: Acute (4) Diastolic CHF with preserved left ventricular function, NYHA class 2: Status: Acute Plan Macy Wall is 79 y/o woman admitted with: Acute on chronic hypoxemic hypercapnic respiratory failure, secondary to severe WOJCIECH (noncompliant with CPAP use), OHS, acute COPD exacerbation + acute on chronic diastolic CHF. Admit to hospitalist service. Improving after placement on BiPAP briefly in ICU with good response Change Nebx to Xopenex Steroids Recheck CXR BiPAP bedtime Advised Weight loss will be beneficial DC indwelling urinary catheter Acute on chronic diastolic CHF TTE Daily IV lasix Cardiology following Atrial fibrillation with rapid ventricular response. DC diltiazem IV infusion and Increase PO to 60 mg QID Continue Digoxin 125 mcg PO q2 days. Hesitated about starting anticoagulation (pt was taking Xarelto before but he had an event of GI bleeding on July 2023 and thrombocytopenia). Morbid obesity. BMI 41.3 kg/m2. Encourage weight loss. Hyperlipidemia. Continue statin. DVT prophylaxis: Heparin subQ Patient will need hospitalization overnight for severe hypoxemic hypercapnic respiratory failure management with supplemental oxygen,, IV diuresis, bronchodilator therapy, IV steroids Quality Stroke Does the patient have a stroke diagnosis?: No VTE Prior VTE?: No VTE Risk Level:: Medical - moderate - high VTE Device Contraindication: Treatment Not Indicated VTE Drug Contraindication: N/A - Med Ordered
[2024-04-10] MEDS: Ipratropium Bromide 0.5 MG/2.5 ML SOLUTION INHALE ×3 (11:44→19:43)
--- NOTE | 2024-04-10 13:37 | HO.WOUND ---
Wound Consult: Initial 79yr old?female admitted to [facility] [place] on 04/09/24 - See progress notes and H&P for detailed history.? 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 Patient agreeable to assessment. Bilateral Breast Folds Etiology: ??Fungal Dermatitis - MASD (Moisture Associated Skin Damage) Wound Bed: red macular papular rash noted in various areas - no intertrigo noted Drainage / Odor: None Edges: ? within fold Michelle wound: ? Dried scabs on anterior breast - pt reports itching- no s/s of fungal derm to this area of breast - provider to consider topical steroid cream - No Induration, Fluctuance or Warmth noted Pain: denies Goals of Treatment: ? Interdry for moisture management Recommendations: 1. Bilateral Breast Folds - Routine Cleanseing with Ph balanced wipes - dry well. Tuck Interdry AG Sheet into skin fold to wick and translocate moisture away from skin fold.? Be sure to leave at least 2 inch of fabric exposed outside of skin fold.? Change when soiled may stay in place for up to 5 days. Re-consult wound care Nurse for wound deterioration or wound changes.
--- NOTE | 2024-04-10 13:50 | MHC.CM.PN ---
Met with patient to discuss discharge planning. PT eval recommendation is Pulmonary Rehab. The patient refuses to go to a SNF at discharge. She is willing to accept VNA services. Her preference is [facility]. A referral has been sent to the agency. DP home with [facility]. Patient may need assist with transportation home. Patients venkateshr Bethany called t/w prior to meeting for discharge planning. She was very emotional during the conversation. Emotional support+encouragement were provided.
[2024-04-10] MEDS: levalbuterol HCL 1.25 MG/3 ML VIAL.NEB INHALE ×2 (15:40→19:43)
[2024-04-10] MEDS: Melatonin 3 MG TABLET 6 MG PO (21:45)
[2024-04-11] VITALS (15 sets, daily range): BP systolic 140–158; BP diastolic 58–91; PULSE 84–103; RESP 16–20; TEMP 35.9–36.3; O2SAT 91–96; BMI 40.1
[2024-04-11] MEDS: Pantoprazole Sodium 40 MG/10 ML VIAL IVPUSH (06:18)
[2024-04-11] MEDS: Ipratropium Bromide 0.5 MG/2.5 ML SOLUTION INHALE ×4 (07:45→19:20)
[2024-04-11] MEDS: levalbuterol HCL 1.25 MG/3 ML VIAL.NEB INHALE ×3 (07:45→19:20)
[2024-04-11] MEDS: dilTIAZem HCL SR 60 MG CAP.ER.12H PO (08:40)
[2024-04-11 08:41] LABS: Anion Gap 12 (12-20); Blood Urea Nitrogen 23 mg/dL (9-16); Calcium 10.2 mg/dL (8.4-10.2); Chloride 96 mmol/L (96-108); Creatinine Clr Calc Pharmacy 65.3; Estimated Glomerular Filt Rate > 60; Glucose Random 121 mg/dL (60-115); Potassium 4.1 mmol/L (3.3-5.1); Sodium 145 mmol/L (135-145)
[2024-04-11] MEDS: methylPREDNISolone Sod Succ 40 MG/ML VIAL IVPUSH (08:48)
[2024-04-11] MEDS: Furosemide 40 MG/4 ML VIAL IVPUSH ×2 (08:48→17:03)
[2024-04-11] MEDS: Heparin Sodium,Porcine 5,000 UNIT/ML VIAL 5000 UNIT SUBCUT ×2 (08:48→21:26)
[2024-04-11] MEDS: 0.9 % Sodium Chloride Flush 3 ML SYRINGE IVFLUSH ×3 (08:49→21:27)
[2024-04-11 09:01] LABS: Carbon Dioxide 41 mmol/L (22-29)
[2024-04-11] MEDS: dilTIAZem HCL SR 90 MG CAP.ER.12H PO ×3 (14:05→21:25)
--- NOTE | 2024-04-11 14:29 | HO.PM.IMPN ---
Subjective Subjective Date of Service: 04/11/24 Interval History: seen and evaluated this morning breathing better overall , on 4L O2 Afib RvR better controlled tolerating diet Review of Systems Review of Systems: Yes all other systems are reviewed and are negative Physical Exam Vital Signs: Vital Signs: Last Vital Signs Temp 97.1 F 04/11/24 11:27 Pulse 94 04/11/24 14:05 Resp 18 04/11/24 11:38 BP 158/91 H 04/11/24 14:05 Pulse Ox 95 04/11/24 11:27 O2 Del Method Nasal Cannula 04/11/24 11:27 O2 Flow Rate 4 04/11/24 11:27 FiO2 35 04/10/24 23:26 Oxygen Flow Rate 4 04/08/24 14:22 BMI result Body Mass Index 40.1 Const: Other: Constitutional : Awake, interactive, not in distress Neck : Normal inspection, Supple Cardiovascular : irregular irregular, no JVP, no lower extremity edema Respiratory : decreased bilateral air entry, bilateral expiratory wheezes Gastrointestinal: soft, lax, Normal bowel sounds, Non tender Skin : Warm, Dry Neurological : Alert & oriented x3, No focal deficit Objective Data Active Medications Acetaminophen (Acetaminophen 325 Mg Tablet) 975 mg PO Q6H PRN PRN Reason: Pain, Mild (Pain Scale 1-3), fever or headache Last Admin: 04/10/24 21:41 Dose: 975 mg Documented By: LOUIS Albuterol Sulfate (Albuterol Sulfate (0.083%) 2.5 Mg/3 Ml Vial.Neb) 2.5 mg INHALE Q3H PRN PRN Reason: Wheezing Digoxin (Digoxin 0.125 Mg Tablet) 0.125 mg PO Q2D [facility] Last Admin: 04/10/24 08:42 Dose: 0.125 mg Documented By: SHER Diltiazem HCl (Diltiazem Hcl Sr 90 Mg Cap.Er.12h) 90 mg PO QID [facility]; Protocol Last Admin: 04/11/24 14:05 Dose: 90 mg Documented By: JILLIAN Furosemide (Furosemide 40 Mg/4 Ml Vial) 40 mg IVPUSH BID@0900,1800 [facility]; Protocol Heparin Sodium (Porcine) (Heparin Sodium,Porcine 5,000 Unit/Ml Vial) 5,000 unit SUBCUT Q12H [facility] Last Admin: 04/11/24 08:48 Dose: 5,000 unit Documented By: JILLIAN Ipratropium [place] (Ipratropium [place] 0.5 Mg/2.5 Ml Solution) 0.5 mg INHALE RQ4H WHILE AWAKE [facility] Last Admin: 04/11/24 11:35 Dose: 0.5 mg Documented By: SARAVANAN Levalbuterol HCl (Levalbuterol Hcl 1.25 Mg/3 Ml Vial.Neb) 1.25 mg INHALE RTID [facility] Last Admin: 04/11/24 07:45 Dose: 1.25 mg Documented By: SARAVANAN Melatonin (Melatonin 3 Mg Tablet) 6 mg PO BEDTIME PRN PRN Reason: Insomnia Last Admin: 04/10/24 21:45 Dose: 6 mg Documented By: LOUIS Methylprednisolone Sodium Succinate (Methylprednisolone Sod Succ 40 Mg/Ml Vial) 40 mg IVPUSH DAILY [facility] Last Admin: 04/11/24 08:48 Dose: 40 mg Documented By: JILLIAN Pantoprazole Sodium (Pantoprazole Sodium 40 Mg/10 Ml Vial) 40 mg IVPUSH DAILY@0630 [facility] Last Admin: 04/11/24 06:18 Dose: 40 mg Documented By: LOUIS Sodium Chloride (0.9 % Sodium Chloride Flush 3 Ml Syringe) 3 ml IVFLUSH QSHIFT [facility] Last Admin: 04/11/24 08:49 Dose: 3 ml Documented By: JILLIAN Tramadol HCl (Tramadol Hcl 50 Mg Tablet) 25 mg PO Q6H PRN PRN Reason: Pain, Severe (Pain Scale 7-10) Labs 04/09/24 04:05 04/11/24 07:32 Labs: Laboratory Results - last 24 hr 04/11/24 07:32 Anion Gap 12 Estim Creat Clear Calc 65.3 Estimated GFR > 60 Random Glucose 121 H Calcium 10.2 D Microbiology Microbiology Results: Microbiology 04/08/24 14:48 Blood Culture - Preliminary Blood - Venous No growth after 48 hours. 04/08/24 14:48 Blood Culture - Preliminary Blood - Venous No growth after 48 hours. Assessment and Plan (1) Respiratory failure with hypoxia and hypercapnia: Status: Acute (2) Atrial fibrillation with RVR: Status: Acute (3) Diastolic CHF with preserved left ventricular function, NYHA class 2: Status: Acute Plan Macy Wall is 79 y/o woman admitted with: Acute on chronic hypoxemic hypercapnic respiratory failure, secondary to severe WOJCIECH (noncompliant with CPAP use), OHS, COPD Improving after placement on NIV briefly in ICU with good response Change Nebx to Xopenex IV Steroids Recheck CXR Continue NIV bedtime Advised Weight loss will be beneficial The patient will need a non-invasive ventilator at home to help with gas exchange, reduce readmission and improve quality of life. Acute on chronic diastolic CHF Continue IV lasix Cardiology following Atrial fibrillation with rapid ventricular response. Increase PO cardizem to 90 mg QID Continue Digoxin 125 mcg PO q2 days. Hesitated about starting anticoagulation (pt was taking Xarelto before but he had an event of GI bleeding on July 2023 and thrombocytopenia). Morbid obesity. BMI 41.3 kg/m2. Encourage weight loss. Hyperlipidemia. Continue statin. DVT prophylaxis: Heparin subQ Patient will need hospitalization overnight for severe hypoxemic hypercapnic respiratory failure management with supplemental oxygen,, IV diuresis, bronchodilator therapy, IV steroids Quality Stroke Does the patient have a stroke diagnosis?: No VTE Prior VTE?: No VTE Risk Level:: Medical - moderate - high VTE Device Contraindication: Treatment Not Indicated VTE Drug Contraindication: N/A - Med Ordered
--- NOTE | 2024-04-11 14:38 | P.PNIM_ITS ---
Subjective Subjective Date of Service: 04/11/24 Interval History: seen and evaluated this morning breathing better overall , on 4L O2 Afib RvR better controlled tolerating diet Physical Exam 2 Vital Signs: Vital Signs: Last Vital Signs Temp 97.1 F 04/11/24 11:27 Pulse 94 04/11/24 14:05 Resp 18 04/11/24 11:38 BP 158/91 H 04/11/24 14:05 Pulse Ox 95 04/11/24 11:27 O2 Del Method Nasal Cannula 04/11/24 11:27 O2 Flow Rate 4 04/11/24 11:27 FiO2 35 04/10/24 23:26 Oxygen Flow Rate 4 04/08/24 14:22 BMI result Body Mass Index 40.1 Const: Other: Constitutional : Awake, interactive, not in distress Neck : Normal inspection, Supple Cardiovascular : irregular irregular, no JVP, no lower extremity edema Respiratory : decreased bilateral air entry, bilateral expiratory wheezes Gastrointestinal: soft, lax, Normal bowel sounds, Non tender Skin : Warm, Dry Neurological : Alert & oriented x3, No focal deficit Objective Data Active Medications Acetaminophen (Acetaminophen 325 Mg Tablet) 975 mg PO Q6H PRN PRN Reason: Pain, Mild (Pain Scale 1-3), fever or headache Last Admin: 04/10/24 21:41 Dose: 975 mg Documented By: LOUIS Albuterol Sulfate (Albuterol Sulfate (0.083%) 2.5 Mg/3 Ml Vial.Neb) 2.5 mg INHALE Q3H PRN PRN Reason: Wheezing Digoxin (Digoxin 0.125 Mg Tablet) 0.125 mg PO Q2D [facility] Last Admin: 04/10/24 08:42 Dose: 0.125 mg Documented By: SHER Diltiazem HCl (Diltiazem Hcl Sr 90 Mg Cap.Er.12h) 90 mg PO QID [facility]; Protocol Last Admin: 04/11/24 14:05 Dose: 90 mg Documented By: JILLIAN Furosemide (Furosemide 40 Mg/4 Ml Vial) 40 mg IVPUSH BID@0900,1800 [facility]; Protocol Heparin Sodium (Porcine) (Heparin Sodium,Porcine 5,000 Unit/Ml Vial) 5,000 unit SUBCUT Q12H [facility] Last Admin: 04/11/24 08:48 Dose: 5,000 unit Documented By: JILLIAN Ipratropium [place] (Ipratropium [place] 0.5 Mg/2.5 Ml Solution) 0.5 mg INHALE RQ4H WHILE AWAKE [facility] Last Admin: 04/11/24 11:35 Dose: 0.5 mg Documented By: SARAVANAN Levalbuterol HCl (Levalbuterol Hcl 1.25 Mg/3 Ml Vial.Neb) 1.25 mg INHALE RTID [facility] Last Admin: 04/11/24 07:45 Dose: 1.25 mg Documented By: SARAVANAN Melatonin (Melatonin 3 Mg Tablet) 6 mg PO BEDTIME PRN PRN Reason: Insomnia Last Admin: 04/10/24 21:45 Dose: 6 mg Documented By: LOUIS Methylprednisolone Sodium Succinate (Methylprednisolone Sod Succ 40 Mg/Ml Vial) 40 mg IVPUSH DAILY [facility] Last Admin: 04/11/24 08:48 Dose: 40 mg Documented By: JILLIAN Pantoprazole Sodium (Pantoprazole Sodium 40 Mg/10 Ml Vial) 40 mg IVPUSH DAILY@0630 [facility] Last Admin: 04/11/24 06:18 Dose: 40 mg Documented By: LOUIS Sodium Chloride (0.9 % Sodium Chloride Flush 3 Ml Syringe) 3 ml IVFLUSH QSHIFT [facility] Last Admin: 04/11/24 08:49 Dose: 3 ml Documented By: JILLIAN Tramadol HCl (Tramadol Hcl 50 Mg Tablet) 25 mg PO Q6H PRN PRN Reason: Pain, Severe (Pain Scale 7-10) Labs 04/09/24 04:05 04/11/24 07:32 Labs: Laboratory Results - last 24 hr 04/11/24 07:32 Anion Gap 12 Estim Creat Clear Calc 65.3 Estimated GFR > 60 Random Glucose 121 H Calcium 10.2 D Microbiology Microbiology Results: Microbiology 04/08/24 14:48 Blood Culture - Preliminary Blood - Venous No growth after 48 hours. 04/08/24 14:48 Blood Culture - Preliminary Blood - Venous No growth after 48 hours. Assessment and Plan (1) Respiratory failure with hypoxia and hypercapnia: Status: Acute (2) Atrial fibrillation with RVR: Status: Acute (3) COPD (chronic obstructive pulmonary disease): Status: Acute (4) Diastolic CHF with preserved left ventricular function, NYHA class 2: Status: Acute Plan Macy Wall is 79 y/o woman admitted with: Acute on chronic hypoxemic hypercapnic respiratory failure, secondary to severe WOJCIECH , OHS and COPD Improving after placement on NIV briefly in ICU with good response Change Nebx to Xopenex IV Steroids Recheck CXR Continue NIV bedtime Advised Weight loss will be beneficial The patient will need a non-invasive ventilator at home to help with gas exchange, reduce readmission and improve quality of life. Acute on chronic diastolic CHF Continue IV lasix Cardiology following Atrial fibrillation with rapid ventricular response. Increase PO cardizem to 90 mg QID Continue Digoxin 125 mcg PO q2 days. Hesitated about starting anticoagulation (pt was taking Xarelto before but he had an event of GI bleeding on July 2023 and thrombocytopenia). Morbid obesity. BMI 41.3 kg/m2. Encourage weight loss. Hyperlipidemia. Continue statin. DVT prophylaxis: Heparin subQ Patient will need hospitalization overnight for severe hypoxemic hypercapnic respiratory failure management with supplemental oxygen,, IV diuresis, bronchodilator therapy, IV steroids Quality Stroke Does the patient have a stroke diagnosis?: No VTE Prior VTE?: No VTE Risk Level:: Medical - moderate - high VTE Device Contraindication: Treatment Not Indicated VTE Drug Contraindication: N/A - Med Ordered
[2024-04-11] MEDS: acetaZOLAMIDE 250 MG TABLET PO (17:04)
[2024-04-11] MEDS: traMADoL HCL 50 MG TABLET 25 MG PO (21:27)
[2024-04-12] VITALS (10 sets, daily range): BP systolic 131–152; BP diastolic 65–88; PULSE 74–94; RESP 17–27; TEMP 36–36.3; O2SAT 94–98; BMI 43.0
[2024-04-12] MEDS: Pantoprazole Sodium 40 MG/10 ML VIAL IVPUSH (05:41)
[2024-04-12 06:28] LABS: Hematocrit 38.6 % (37.0-47.0); Hemoglobin 11.8 g/dl (12.0-16.0); Mean Corpuscular HGB Conc 30.6 g/dl (31.0-35.0); Mean Corpuscular Hemoglobin 29.4 pg (27.0-33.0); Mean Platelet Volume 11.5 fL (9.4-12.3); Platelet Count 162 X10*3/uL (160-400); Red Blood Count 4.02 X10*6/uL (4.20-5.50); Red Cell Distribution Width 15.2 % (11.0-16.0); White Blood Count 8.8 X10*3/uL (4.8-10.8)
[2024-04-12 06:32] LABS: Anion Gap 14 (12-20); Blood Urea Nitrogen 20 mg/dL (9-16); Calcium 9.6 mg/dL (8.4-10.2); Carbon Dioxide 36 mmol/L (22-29); Chloride 97 mmol/L (96-108); Creatinine Clr Calc Pharmacy 71.4; Estimated Glomerular Filt Rate > 60; Glucose Random 124 mg/dL (60-115); Potassium 3.7 mmol/L (3.3-5.1); Sodium 143 mmol/L (135-145)
[2024-04-12 06:34] LABS: B Type Natriuretic Peptide 245 pg/mL (<100)
[2024-04-12] MEDS: Ipratropium Bromide 0.5 MG/2.5 ML SOLUTION INHALE ×2 (07:51→11:23)
[2024-04-12] MEDS: levalbuterol HCL 1.25 MG/3 ML VIAL.NEB INHALE (07:51)
[2024-04-12] MEDS: methylPREDNISolone Sod Succ 40 MG/ML VIAL IVPUSH (09:16)
[2024-04-12] MEDS: dilTIAZem HCL SR 90 MG CAP.ER.12H PO ×2 (09:16→11:46)
[2024-04-12] MEDS: Heparin Sodium,Porcine 5,000 UNIT/ML VIAL 5000 UNIT SUBCUT (09:16)
[2024-04-12] MEDS: Furosemide 40 MG/4 ML VIAL IVPUSH (09:16)
[2024-04-12] MEDS: 0.9 % Sodium Chloride Flush 3 ML SYRINGE IVFLUSH (09:17)
[2024-04-12] MEDS: Digoxin 0.125 MG TABLET PO (09:19)
--- NOTE | 2024-04-12 11:41 | P.DS_ITS ---
DS: Providers Provider Date of Service: 04/12/24 Date of admission: 04/09/24 02:51 Primary care physician: Clint Tong MD Consults: 04/09/24 04:26 Consult to Critical Care Routine Consulting Provider: Delon Ocampo Reason for consultation: Severe hypoxemic hypercapnic respiratory failure Has provider been notified: No 04/09/24 04:27 Consult to Cardiology Routine Consulting Provider: [facility] Reason for consultation: Resp failure, HFpEF Has provider been notified: Yes 04/10/24 04:04 Consult to Wound Care Routine Reason for consultation: rash/scabs to bilateral breasts 04/11/24 10:45 Consult to Pulmonology Routine Consulting Provider: [facility] Reason for consultation: Hypercapnic hypoxic failure for eval and rec. DS: Diagnosis Discharge Diagnosis (1) Respiratory failure with hypoxia and hypercapnia: Status: Acute (2) Atrial fibrillation with RVR: Status: Acute (3) COPD (chronic obstructive pulmonary disease): Status: Acute (4) Diastolic CHF with preserved left ventricular function, NYHA class 2: Status: Acute DS: Summary Hospital Course Hospital Course: Admission note HPI Macy Millan is 79 years old woman with past medical history significant for HFpEF, morbid obesity, atrial fibrillation, obstructive sleep apnea noncompliant with CPAP, COPD/chronic respiratory failure on home O2 (4L/min) was brought to the emergency department via EMS due to worsening shortness on breath and episodes of loss of consciousness and woke with history of productive cough. Patient denied palpitations, chest pain, fevers or chills. Patient also denied any acute gastrointestinal or genitourinary symptoms. She is a former tobacco smoker (smoked for 60 years). According to ED provider notes patient was initially wheezing received treatment with IV steroids, IV antibiotics and also IV fluids. She was also placed on rescue CPAP but patient developed somnolence and was started on BiPAP. I was informed that patient might have been having mechanical obstruction. Subsequently, the patient developed rapid atrial fibrillation for which the patient received multiple dose of diltiazem IVP then started on diltiazem IV infusion. Head CTA showed no evidence of PE but did show bilateral tiny pleural effusions. Patient was evaluated by ICU provider and was not considered an ICU candidate. Hospital course Treated for Acute on chronic hypoxemic hypercapnic respiratory failure, secondary to severe WOJCIECH , OHS and COPD with IV steroids, Nebulizers as she had to be placed on NIV briefly in ICU and NIV at bedtime with good response. She was weaned down O2 supplement to baseline and she will need a non-invasive ventilator at home to help with gas exchange, reduce readmission and improve quality of life. AVAP delivery to be arranged. She was also treated for Acute on chronic diastolic CHF with IV lasix as she was followed by Cardiology. To monitor weight and continue Torsemide upon discharge. Atrial fibrillation with rapid ventricular response treated with Increased dose of PO cardizem with fair control and DC Metoprolol per cardiology. Continue Digoxin 125 mcg PO q2 days. To discharge on Cardizem 240 CD. Hesitated about starting anticoagulation (pt was taking Xarelto before but he had an event of GI bleeding on July 2023 and thrombocytopenia). Evaluated by physical therapy team who recommended acute pulmonary rehab but the patient prefers to go back home where her 2 daughters take care of her. Discharge plan Continue tapering dose Prednisone Increase Cardizem to 240 mg daily Stop Metoprolol and Cardizem 180mg Ipratropium nebulizer as needed Daily Spiriva inhalor Use AVAP machine at home night time and with naps Time Attestation Discharge Coordination Time (in mins): 39 Quality: Safe Use of Opioids Does Pt have an Active Cancer Diagnosis on the Problem List?: No Quality: Stroke Does the patient have a stroke diagnosis?: No Physical Exam Vital Signs: Vital Signs: Last Vital Signs Temp 96.8 F 04/12/24 08:00 Pulse 86 04/12/24 11:25 Resp 20 04/12/24 11:25 BP 131/88 04/12/24 09:16 Pulse Ox 95 04/12/24 08:00 O2 Del Method BiPAP 04/12/24 08:00 O2 Flow Rate 4 04/12/24 00:00 FiO2 35 04/10/24 23:26 Oxygen Flow Rate 4 04/08/24 14:22 BMI result Body Mass Index 43.0 Const: Other: Constitutional : Awake, interactive, not in distress Neck : Normal inspection, Supple Cardiovascular : irregular irregular, no JVP, no lower extremity edema Respiratory : improved bilateral air entry, no expiratory wheezes Gastrointestinal: soft, lax, Normal bowel sounds, Non tender Skin : Warm, Dry Neurological : Alert & oriented x3, No focal deficit DS: Data Data Completed and Pending Completed studies during hospitalization [Text1]: Procedures Assistance with Respiratory Ventilation, Less than 24 Consecutive Hours, Continuous Positive Airway Pressure (05/18/23) Insertion of Infusion Device into Superior Vena Cava, Percutaneous Approach (10/04/22) Introduction of Vasopressor into Central Vein, Percutaneous Approach (10/04/22) Ultrasonography of Superior Vena Cava, Guidance (10/04/22) Labs on day of discharge: Laboratory Results - last 24 hr 04/12/24 05:43 WBC 8.8 RBC 4.02 L Hgb 11.8 L Hct 38.6 MCV 96.0 MCH 29.4 MCHC 30.6 L RDW 15.2 Plt Count 162 MPV 11.5 Absolute Nucleated RBC 0.000 Nucleated RBC % (auto) 0.0 Sodium 143 Potassium 3.7 Chloride 97 Carbon Dioxide 36 H Anion Gap 14 BUN 20 H Creatinine 0.79 Estim Creat Clear Calc 71.4 Estimated GFR > 60 Random Glucose 124 H Calcium 9.6 B-Natriuretic Peptide 245 H Preliminary micro results at discharge 04/08/24 14:48 Blood Culture - Preliminary Blood - Venous No growth after 48 hours. 04/08/24 14:48 Blood Culture - Preliminary Blood - Venous No growth after 48 hours. Imaging Chest x-ray: Radiologist's impression: ITS Impressions Chest X-Ray 04/08/24 15:20 IMPRESSION: 1. Cardiomegaly. 2. Low lung volume. 3. Prominence of bronchovascular markings accentuated by low inspiratory effort. No overt pulmonary edema. Chest CTA 04/08/24 18:48 IMPRESSION: 1. No evidence for pulmonary emboli. Dependent atelectasis and tiny bilateral pleural effusions. 2. VTE: Negative. Chest X-Ray 04/09/24 03:20 IMPRESSION: Cardiomegaly with mild interstitial edema and trace pleural effusions, similar to prior. Discharge Plan Discharge Anticipated Discharge Date/Time: 04/12/24 11:10 Patient Disposition: Home Health Service Discharge Diagnosis: COPD Exacerbation HEart failure Referrals: Maryann GARCIA [Outside] - 1 Week Clint Tong MD [Primary Care Provider] - 1 Week Discharge Medications: New prednisone 10 mg tablet See Taper PO DIRECTED Qty: 30 0RF Taper: Prednisone 40 mg daily for 3 Days and 0 Hour 30 mg daily for 3 Days and 0 Hour 20 mg daily for 3 Days and 0 Hour 10 mg daily for 3 Days and 0 Hour Rx Instructions: see taper instructions ipratropium bromide 0.02 % Solution 0.5 mg inhalation RQ4H WHILE AWAKE PRN (Reason: shortness of breath or wheezing) Qty: 75 1RF tiotropium bromide 18 mcg capsule, w/inhalation device 1 cap inhalation DAILY Qty: 90 0RF Rx Instructions: puncture 1 cap using device; one dose = 2 inhalations diltiazem HCl 240 mg capsule,extended release 24hr 240 mg PO DAILY Qty: 90 0RF Continued fluticasone furoate-vilanterol [Breo Ellipta] 100-25 mcg/dose Blister With De vice 1 puff inhalation RDAILY Qty: 1 0RF guaifenesin [Mucinex] 600 mg Tablet Extended Release 12hr 600 mg PO BID Qty: 20 0RF albuterol sulfate 2.5 mg /3 mL (0.083 %) solution for nebulization 1 vial inhalation Q4H PRN (Reason: Shortness Of Breath) docusate sodium 100 mg Capsule 100 mg PO TID buspirone 5 mg tablet 5 tab PO BID tramadol 50 mg tablet 1 tab PO BID PRN (Reason: Pain) aspirin 81 mg Tablet,Delayed Release (Dr/Ec) 81 mg PO BEDTIME cholecalciferol (vitamin D3) [Vitamin D3] 10 mcg (400 unit) Tablet 10 mcg PO DAILY B-complex with vitamin C Tablet 1 tab PO DAILY lutein 20 mg Capsule 20 mg PO DAILY Rx Instructions: give with meal/snack melatonin 5 mg Tablet 5 mg PO BEDTIME PRN (Reason: Insomnia) nystatin 100,000 unit/gram powder 1 appl topical BID PRN (Reason: Rash) hydroxyzine pamoate 25 mg capsule 25 mg PO DAILY PRN (Reason: anxiety) torsemide 20 mg tablet 40 mg PO DAILY buspirone 5 mg tablet 5 mg PO DAILY PRN (Reason: Anxiety) omega 4-txq-dwi-fish oil [Fish Oil] 1,000 mg (120 mg-180 mg) Capsule 1 cap PO DAILY digoxin 125 mcg (0.125 mg) tablet 0.125 mg PO Q48H vitamin E 268 mg (400 unit) Capsule 268 mg PO DAILY acetaminophen 325 mg Tablet 650 mg PO Q4H PRN (Reason: Pain) PreserVision AREDS 2,148 mcg-113 mg-45 mg-17.4mg Tablet 2 tab PO BID Rx Instructions: administer with AM and PM meals atorvastatin 20 mg tablet 20 mg PO BEDTIME omeprazole 20 mg capsule,delayed release(DR/EC) 20 mg PO DAILY@0630 Discontinued metoprolol tartrate 25 mg tablet 12.5 mg PO BID diltiazem HCl [Cardizem CD] 180 mg Capsule,Extended Release 24hr 180 mg PO DAILY Qty: 30 0RF Protocol: Hold for SBP/HR < HOLD for SBP < : 90 HOLD for HR < : 60 Discharge Orders: Discharge Order (Routine); Ordered 04/12/24 Ordered By: Carmel Disla Diet: Low salt diet Activity on Discharge: As tolerated Stand Alone Forms: Patient Portal Discharge page Print Language: Vietnamese Care Plan Goals: Continue tapering dose Prednisone Increase Cardizem to 240 mg daily Stop Metoprolol and Cardizem 180mg Ipratropium nebulizer as needed Daily Spiriva inhalor Use AVAP machine at home night time and with naps Health Concerns: Read below Plan of Treatment: Read below Assessment: Read below
[2024-04-12] MEDS: Acetaminophen 325 MG TABLET 975 MG PO (11:46)
--- NOTE | 2024-04-12 11:49 | MHC.CM.PN ---
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
--- NOTE | 2024-04-12 11:59 | W.MHC.F2F ---
Service Date Service Date: 04/12/24 Encounter Date of encounter: 04/12/24 Reasons for Services Signs and symptoms assessed: New AVAP machine Physical deconditioning Reason for care home: medication management and teach disease management Reason for physical therapy: home safety and mobility and therapeutic exercises Homebound: Leaving the home is medically contraindicated at this time without the asist of a device and/or another person due th the listed conditions above and below. Reason homebound: unable to drive Certification: Based on the above findings, I certify that this patient is confined to the home and needs intermittent care home care, physical therapy and/or speech therapy, or continues to need occupational therapy. The patient is under my care, and I have initiated the establishment of the plan of care. The patient will be followed by a physician who will periodically review the plan of care. Time Spent With Patient Time: Total time managing care of this patient today ____ minutes.
--- NOTE | 2024-04-12 12:53 | PM.CNPUL ---
History of Present Illness History of Present Illness Consult date: 04/12/24 Chief complaint: Hypoxic and hypercapnic respiratory failure Narrative: This is an inpatient pulmonary consultation. The patient is an 79 years old woman with past medical history significant for HFpEF, morbid obesity, atrial fibrillation, obstructive sleep apnea noncompliant with CPAP, COPD/chronic respiratory failure on home O2 (4L/min) was brought to the emergency department via EMS due to worsening shortness on breath and episodes of loss of consciousness and woke with history of productive cough. Patient denied palpitations, chest pain, fevers or chills. Patient also denied any acute gastrointestinal or genitourinary symptoms. In the ED the patient was initially wheezing received treatment with IV steroids, IV antibiotics and also IV fluids. She was also placed on rescue CPAP but patient developed somnolence and was started on BiPAP. Subsequently, the patient developed rapid atrial fibrillation for which the patient received multiple dose of diltiazem IVP then started on diltiazem IV infusion. Head CTA showed no evidence of PE but did show bilateral tiny pleural effusions. The patient briefly was treated in the ICU on BiPAP subsequently transferred to the floor. Feeling better. Review of Systems Constitutional: Constitutional: Reports lethargy and Reports weakness Cardiovascular: Cardiovascular: Denies chest pain, Denies leg edema, Reports Loss of Consciousness, Denies palpitations and Reports dyspnea on exertion Respiratory: Respiratory: Reports cough, Reports excessive phlegm production, Reports dyspnea on exertion and Reports wheezing Gastrointestinal: Gastrointestinal: Reports no additional gastrointestinal complaints Genitourinary: Genitourinary: Reports no additional female genitourinary complaints Musculoskeletal: Musculoskeletal: Reports no additional musculoskeletal complaints Integumentary/Breasts: Skin/Breast: Reports system reviewed and no additional complaints, except as docu Neurologic: Reports system reviewed and no additional complaints, except as documented and Reports weakness Psychiatric: Psychiatric: Reports no additional psychiatric complaints Endocrine: Endocrine: Denies palpitations Allergic/Immunologic: Allergic/Immunologic: Reports wheezing [facility] Past Medical History Medical History History of non-ST elevation myocardial infarction (NSTEMI) (~09/2022) Osteoporosis Leukocytosis Dilated cbd, acquired Cholecystitis Gallstone Pancreatitis WOJCIECH (obstructive sleep apnea) Acute and chronic respiratory failure with hypercapnia Diastolic CHF with preserved left ventricular function, NYHA class 2 Cor pulmonale, chronic Emphysema lung Supplemental oxygen dependent COPD (chronic obstructive pulmonary disease) Family History Family History Father Myocardial infarction Surgical History Surgical History History of squamous cell carcinoma excision Social History Social History Household Members: Children Household Members Other:: 2 daughter Housing: House Do you presently have visiting nurse or other home services: No Unable to assess alcohol history related to: Unknown Alcohol intake: never Comment: patient is high fall risk Patient Tobacco Use Status: Former Tobacco user Tobacco use type: Cigarette Cigarette Packs Per Day: 1 Cigarettes Per Day: 20.0 Years Smoked: 60 Second Hand Smoke Exposure: No Substance Use Type: Unknown service: No Current occupational status: retired Meds Allergies Allergy/AdvReac Type Severity Reaction Status Date / Time ceftriaxone [From Rocephin] Allergy Unknown Unknown Verified 04/08/24 14:24 vancomycin Allergy Unknown itch, Verified 04/08/24 14:24 rash, hives Active Medications: Current Medications Acetaminophen (Acetaminophen 325 Mg Tablet) 975 mg PO Q6H PRN PRN Reason: Pain, Mild (Pain Scale 1-3), fever or headache Last Admin: 04/12/24 11:46 Dose: 975 mg Albuterol Sulfate (Albuterol Sulfate (0.083%) 2.5 Mg/3 Ml Vial.Neb) 2.5 mg INHALE Q3H PRN PRN Reason: Wheezing Digoxin (Digoxin 0.125 Mg Tablet) 0.125 mg PO Q2D [facility] Last Admin: 04/12/24 09:19 Dose: 0.125 mg Diltiazem HCl (Diltiazem Hcl Sr 90 Mg Cap.Er.12h) 90 mg PO QID [facility]; Protocol Last Admin: 04/12/24 11:46 Dose: 90 mg Furosemide (Furosemide 40 Mg/4 Ml Vial) 40 mg IVPUSH BID@0900,1800 [facility]; Protocol Last Admin: 04/12/24 09:16 Dose: 40 mg Heparin Sodium (Porcine) (Heparin Sodium,Porcine 5,000 Unit/Ml Vial) 5,000 unit SUBCUT Q12H [facility] Last Admin: 04/12/24 09:16 Dose: 5,000 unit Ipratropium [place] (Ipratropium [place] 0.5 Mg/2.5 Ml Solution) 0.5 mg INHALE RQ4H WHILE AWAKE [facility] Last Admin: 04/12/24 11:23 Dose: 0.5 mg Levalbuterol HCl (Levalbuterol Hcl 1.25 Mg/3 Ml Vial.Neb) 1.25 mg INHALE RTID [facility] Last Admin: 04/12/24 07:51 Dose: 1.25 mg Melatonin (Melatonin 3 Mg Tablet) 6 mg PO BEDTIME PRN PRN Reason: Insomnia Last Admin: 04/10/24 21:45 Dose: 6 mg Methylprednisolone Sodium Succinate (Methylprednisolone Sod Succ 40 Mg/Ml Vial) 40 mg IVPUSH DAILY [facility] Last Admin: 04/12/24 09:16 Dose: 40 mg Sodium Chloride (0.9 % Sodium Chloride Flush 3 Ml Syringe) 3 ml IVFLUSH QSHIFT [facility] Last Admin: 04/12/24 09:17 Dose: 3 ml Tramadol HCl (Tramadol Hcl 50 Mg Tablet) 25 mg PO Q6H PRN PRN Reason: Pain, Severe (Pain Scale 7-10) Last Admin: 04/11/24 21:27 Dose: 25 mg Home Medications ?Medication ?Instructions ?Recorded ?Confirmed ?Last Taken ?Type atorvastatin 20 mg tablet 20 mg PO BEDTIME 10/13/20 04/09/24 04/08/24 09:00 History omeprazole 20 mg capsule,delayed 20 mg PO DAILY@0630 10/13/20 04/09/24 04/08/24 09:00 History release albuterol sulfate 2.5 mg/3 mL 1 vial inhalation Q4H PRN 01/07/22 04/09/24 04/08/24 09:00 History (0.083 %) solution for nebulization Shortness Of Breath docusate sodium 100 mg capsule 100 mg PO TID Constipation 01/07/22 04/09/24 04/08/24 09:00 History B-complex with vitamin C 1 tab PO DAILY 10/04/22 04/09/24 04/08/24 09:00 History aspirin 81 mg tablet,delayed 81 mg PO BEDTIME 10/04/22 04/09/24 04/08/24 09:00 History release buspirone 5 mg tablet 5 tab PO BID Anxiety 10/04/22 04/09/24 04/08/24 09:00 History cholecalciferol (vitamin D3) 10 10 mcg PO DAILY 10/04/22 04/09/24 04/08/24 09:00 History mcg (400 unit) tablet (Vitamin D3) lutein 20 mg capsule 20 mg PO DAILY 10/04/22 04/09/24 04/08/24 09:00 History melatonin 5 mg tablet 5 mg PO BEDTIME PRN Insomnia 10/04/22 04/09/24 04/08/24 09:00 History tramadol 50 mg tablet 1 tab PO BID PRN Pain 10/04/22 04/09/24 04/08/24 09:00 History buspirone 5 mg tablet 5 mg PO DAILY PRN Anxiety 08/08/23 04/09/24 04/08/24 09:00 History hydroxyzine pamoate 25 mg capsule 25 mg PO DAILY PRN anxiety 08/08/23 04/09/24 04/08/24 09:00 History nystatin 100,000 unit/gram topical 1 appl topical BID PRN Rash 08/08/23 04/09/24 04/08/24 09:00 History powder omega 6-gcj-twb-fish oil 1,000 mg 1 cap PO DAILY 08/08/23 04/09/24 04/08/24 09:00 History (120 mg-180 mg) capsule (Fish Oil) torsemide 20 mg tablet 40 mg PO DAILY 08/08/23 04/09/24 04/08/24 09:00 History acetaminophen 325 mg tablet 650 mg PO Q4H PRN Pain 04/09/24 04/09/24 Unknown History digoxin 125 mcg (0.125 mg) tablet 0.125 mg PO Q48H 04/09/24 04/09/24 04/08/24 09:00 History vitamin E 268 mg (400 unit) capsule 268 mg PO DAILY 04/09/24 04/09/24 04/08/24 09:00 History vitamins A,C,Z-vdmt-xaxusp 2,148 2 tab PO BID 04/09/24 04/09/24 04/08/24 History mcg-113 mg-45 mg-17.4 mg tablet (PreserVision AREDS) Physical Exam Vital Signs: Vital Signs: Last Vital Signs Temp 96.8 F 04/12/24 08:00 Pulse 86 04/12/24 11:46 Resp 20 04/12/24 11:25 BP 131/88 04/12/24 11:46 Pulse Ox 95 04/12/24 08:00 O2 Del Method BiPAP 04/12/24 08:00 O2 Flow Rate 4 04/12/24 00:00 FiO2 35 04/10/24 23:26 Oxygen Flow Rate 4 04/08/24 14:22 BMI result Body Mass Index 43.0 Const: Other: Constitutional : Awake, interactive, not in distress Neck : Normal inspection, Supple Cardiovascular : irregular irregular, no JVP, no lower extremity edema Respiratory : improved bilateral air entry, no expiratory wheezes Gastrointestinal: soft, lax, Normal bowel sounds, Non tender Skin : Warm, Dry Neurological : Alert & oriented x3, No focal deficit Results Laboratory Findings 04/12/24 05:43 04/12/24 05:43 ABG, PT/INR, D-dimer: PT/INR, D-dimer PT 12.1 SEC (11.1-13.3) D 04/08/24 14:48 INR 1.0 (0.9-1.1) 04/08/24 14:48 Abnormal lab findings: Abnormal Labs 04/08/24 04/08/24 04/08/24 14:48 14:53 20:26 RBC 3.68 L Hgb 11.1 L Hct 36.1 L MCV 98.1 H MCHC 30.7 L Plt Count MPV Neut % (Auto) 76.8 H Lymph % (Auto) 13.4 L [place] % (Auto) Lymph # (Auto) 1.0 L ABG pH at Pt Temp ABG pCO2 at Pt Temp 65 H* ABG pO2 at Pt Temp 65 L ABG HCO3 43 H VBG HCO3 50 H Chloride 93 L Carbon Dioxide 42 H* BUN Random Glucose B-Natriuretic Peptide 341 H Digoxin 04/08/24 04/09/24 04/09/24 22:45 04:05 04:22 RBC 3.82 L Hgb 11.5 L Hct 36.6 L MCV MCHC Plt Count 134 L MPV 12.5 H Neut % (Auto) 90.6 H Lymph % (Auto) 7.5 L [place] % (Auto) 1.6 L Lymph # (Auto) 0.5 L ABG pH at Pt Temp ABG pCO2 at Pt Temp ABG pO2 at Pt Temp ABG HCO3 VBG HCO3 Chloride 95 L Carbon Dioxide 36 H BUN 17 H Random Glucose 153 H B-Natriuretic Peptide 230 H Digoxin 0.4 L 04/09/24 04/09/24 04/11/24 04:27 11:24 07:32 RBC Hgb Hct MCV MCHC Plt Count MPV Neut % (Auto) Lymph % (Auto) [place] % (Auto) Lymph # (Auto) ABG pH at Pt Temp 7.47 H ABG pCO2 at Pt Temp 76 H* 58 H ABG pO2 at Pt Temp 39 L* 71 L ABG HCO3 46 H 42 H VBG HCO3 Chloride Carbon Dioxide 41 H* BUN 23 H Random Glucose 121 H B-Natriuretic Peptide Digoxin 04/12/24 05:43 RBC 4.02 L Hgb 11.8 L Hct MCV MCHC 30.6 L Plt Count MPV Neut % (Auto) Lymph % (Auto) [place] % (Auto) Lymph # (Auto) ABG pH at Pt Temp ABG pCO2 at Pt Temp ABG pO2 at Pt Temp ABG HCO3 VBG HCO3 Chloride Carbon Dioxide 36 H BUN 20 H Random Glucose 124 H B-Natriuretic Peptide 245 H Digoxin Microbiology: Microbiology 04/08/24 14:48 Blood - Venous Blood Culture - Preliminary No growth after 48 hours. 04/08/24 14:48 Blood - Venous Blood Culture - Preliminary No growth after 48 hours. Assessment and Plan (1) Respiratory failure with hypoxia and hypercapnia: Qualifiers: Chronicity: acute on chronic Qualified Code(s): J96.21 - Acute and chronic respiratory failure with hypoxia; J96.22 - Acute and chronic respiratory failure with hypercapnia Status: Acute (2) Atrial fibrillation with RVR: Status: Acute (3) Chronic lung disease: Status: Acute (4) COPD (chronic obstructive pulmonary disease): Qualifiers: COPD type: COPD with acute exacerbation Qualified Code(s): J44.1 - Chronic obstructive pulmonary disease with (acute) exacerbation Status: Acute (5) Diastolic CHF with preserved left ventricular function, NYHA class 2: Status: Acute Plan Continue rate control and diuresis as tolerated Continue respiratory therapy change to po prednisone with taper The patient responded well to BiPAP in the hospital and would benefit from further BiPAP therapy as an outpatient. She does have a history sleep apnea and failed CPAP. 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 The patient will benefit from a in-lab sleep study to further address her issues with obstructive sleep disorder and respiratory failure. Her blood gases have improved on her CO2 appears to be closer to her baseline which is elevated. Procedures Date of Service Date of Service: 04/12/24
== END 2024-04-12 15:25 | disposition home health service (06) | DRG 190 ==
LOC: HO.ED 17:59 → HO.EDOVER 04-09 03:05 → HO.ICU 04-09 05:37 → HO.IMC 04-09 19:52
PROVIDERS: Internal Medicine Critical Care Medicine; Physician Assistant Medical; Admitting Provider Internal Medicine; Emergency Provider Emergency Medicine; PCP Internal Medicine; Visit Provider Student in an Organized Health Care Education/Training Program
DX: J44.1 Chronic obstructive pulmonary disease with (acute) exacerbation (principal); I50.33 Acute on chronic diastolic (congestive) heart failure; J96.21 Acute and chronic respiratory failure with hypoxia; J96.22 Acute and chronic respiratory failure with hypercapnia; E66.2 Morbid (severe) obesity with alveolar hypoventilation; Z68.41 Body mass index [BMI] 40.0-44.9, adult; I27.81 Cor pulmonale (chronic); Z20.822 Contact with and (suspected) exposure to COVID-19; Z91.199 Patient's noncompliance with other medical treatment and regimen due to unspecified reason; Z99.81 Dependence on supplemental oxygen; Z87.891 Personal history of nicotine dependence; Z79.51 Long term (current) use of inhaled steroids; Z79.82 Long term (current) use of aspirin; Z79.899 Other long term (current) drug therapy
CPT/HCPCS: 36415; 36600; 71045; 71275; 80048; 80076; 80162; 82803; 83605; 83735; 83880; 84484; 85025; 85027; 85379; 85610; 87040; 87502; 87635; 93005; 94640; 94660; 97162; 99285; C1758; C9113; J0282; J1160; J1644; J1940; J1956; J2919; Q9967

== ENCOUNTER → 2024-04-08 13:50 | Outpatient (BNV) | payer MEDICARE, MEDICAID, SELFPAY | PROVIDERS: Admitting Provider Internal Medicine; Emergency Provider Emergency Medicine; Visit Provider Internal Medicine Cardiovascular Disease | DX: I48.91 Unspecified atrial fibrillation (principal) | CPT/HCPCS: 93010 ==

== ENCOUNTER → 2024-04-09 02:51 | Outpatient (BNV) | payer MEDICARE, MEDICAID, SELFPAY | PROVIDERS: Admitting Provider Internal Medicine; Emergency Provider Emergency Medicine; PCP Internal Medicine; Visit Provider Hospitalist | DX: J96.21 Acute and chronic respiratory failure with hypoxia (principal); J96.22 Acute and chronic respiratory failure with hypercapnia; I48.91 Unspecified atrial fibrillation; J98.4 Other disorders of lung; J44.1 Chronic obstructive pulmonary disease with (acute) exacerbation; I50.30 Unspecified diastolic (congestive) heart failure | CPT/HCPCS: 99223 ==

== ENCOUNTER → 2024-04-09 02:51 | Outpatient (BNV) | payer MEDICARE, MEDICAID, SELFPAY | PROVIDERS: Admitting Provider Internal Medicine; Emergency Provider Emergency Medicine; Visit Provider Internal Medicine | DX: J44.9 Chronic obstructive pulmonary disease, unspecified (principal); I48.91 Unspecified atrial fibrillation; J96.21 Acute and chronic respiratory failure with hypoxia; J96.22 Acute and chronic respiratory failure with hypercapnia; I50.30 Unspecified diastolic (congestive) heart failure | CPT/HCPCS: 99223; 99232; 99233; 99239; G0180 ==

== ENCOUNTER → 2024-04-09 02:51 | Outpatient (BNV) | payer MEDICARE, MEDICAID, SELFPAY | PROVIDERS: Admitting Provider Internal Medicine; Emergency Provider Emergency Medicine; Visit Provider Internal Medicine Cardiovascular Disease | DX: I48.91 Unspecified atrial fibrillation (principal); J96.21 Acute and chronic respiratory failure with hypoxia; J96.22 Acute and chronic respiratory failure with hypercapnia | CPT/HCPCS: 99222 ==

== ENCOUNTER 2024-04-23 13:20 | Outpatient (AMB) | payer MEDICARE, MEDICAID, SELFPAY ==
[2024-04-23 13:26] VITALS: BP 107/58; PULSE 88; O2SAT 98; BMI 36.6
--- NOTE | 2024-04-23 13:26 | A.OFFVIS_ITS ---
Vital Signs 04/23/24 13:26 Height 5 ft 6 in Weight 227 lb BMI 36.6 BP 107/58 L Blood Pressure Location Rt brachial Position Sitting Pulse 88 Pulse Source Doppler Pulse Oximetry (%) 98 Oxygen Delivery Method Nasal Cannula Oxygen Flow Rate 4 Intake Visit Reasons: HDF 2wk Allergies ceftriaxone [From Rocephin] Allergy (Unknown, Verified 04/08/24 14:24) Unknown vancomycin Allergy (Unknown, Verified 04/08/24 14:24) itch, rash, hives HPI HPI HDF 2wk: Details: 79-year-old lady, former 60+ pack-year smoker, quit August of 2020 followed for COPD with CO2 retention and oxygen dependence, WOJCIECH, and dyspnea on exertion.? She has been using Breo, albuterol MDI, and duo nebs with reasonable control of her symptoms. She has had several hospitalizations for COPD and congestive heart failure exacerbation, and AFib. She has been started on noninvasive nocturnal ventilation for CO2 retention and reports good control of her symptoms. [facility] Medical History (Updated 04/23/24 @ 13:55 by Jose Alfredo Navas MD) Supplemental oxygen dependent COPD (chronic obstructive pulmonary disease) Chronic lung disease Anemia History of non-ST elevation myocardial infarction (NSTEMI) (~09/2022) Osteoporosis Leukocytosis Dilated cbd, acquired Cholecystitis Gallstone Pancreatitis WOJCIECH (obstructive sleep apnea) Acute and chronic respiratory failure with hypercapnia Diastolic CHF with preserved left ventricular function, NYHA class 2 Cor pulmonale, chronic Emphysema lung Surgical History History of squamous cell carcinoma excision Family History Father Myocardial infarction Social History Household Members: Children Household Members Other:: 2 daughter Housing: House Do you presently have visiting nurse or other home services: No Unable to assess alcohol history related to: Unknown Alcohol intake: never Comment: patient is high fall risk Patient Tobacco Use Status: Former Tobacco user Tobacco use type: Cigarette Cigarette Packs Per Day: 1 Cigarettes Per Day: 20.0 Years Smoked: 60 Second Hand Smoke Exposure: No Substance Use Type: Unknown service: No Current occupational status: retired Review of Systems Const Denies daytime sleepiness, Denies excessive sweating, Denies fatigue, Denies fever(s), Denies lethargy, Denies malaise, Denies night sweats, Denies snoring and Denies weight loss Eyes Denies blurry vision and Denies itchy eyes ENT Denies nasal congestion, Denies post nasal drip, Denies sinus pain, Denies sinus pressure and Denies other ( Thrush) Card Denies chest pain, Denies pedal edema, Denies dyspnea, Denies orthopnea and Denies paroxysmal nocturnal dyspnea Resp Denies cough, Denies hemoptysis, Denies excessive phlegm production, Denies dyspnea, Denies snoring and Denies wheezing GI Denies abdominal pain and Denies heartburn Musc Denies myalgias, Denies arthralgias and Denies joint swelling Skin/Breast Denies rash Neuro Denies memory loss and Denies seizure-like activity Psych Denies abnormal sleep pattern, Denies anxiety and Denies memory loss Endo Denies excessive sweating, Denies fatigue and Denies heat intolerance Marco/Lymph Denies easy bruising Aller/Immun Denies itchy eyes, Denies seasonal rhinorrhea and Denies wheezing Physical Exam Vital Signs: Last Vital Signs Pulse 88 04/23/24 13:26 BP 107/58 L 04/23/24 13:26 Pulse Ox 98 04/23/24 13:26 Oxygen Delivery Method Nasal Cannula 04/23/24 13:26 Oxygen Flow Rate 4 04/23/24 13:26 BMI result Body Mass Index 36.6 Const General: no acute distress and alert Nutritional Appearance: obese Orientation/consciousness: Other orientation findings ( oriented) HEENT Head: Yes atraumatic Eyes General: appearance normal, both eyes and all related structures Sclerae: sclerae normal EOM: EOMs intact bilaterally Neck Neck: Yes supple Lymphatic: no lymphadenopathy noted Resp Effort & Inspection: normal respiratory effort and no use of accessory muscles Auscultation: clear to auscultation bilaterally Cardio Rate: regular rate Rhythm: regular rhythm Heart sounds: no gallops, no murmurs and no rubs Skin General skin exam: other ( warm) Extrem General: No clubbing, No cyanosis and No edema Assessment & Plan Assessment & Plan (1) CO2 retention: Code(s): E87.29 - Other acidosis Category: Medical (2) COPD (chronic obstructive pulmonary disease): Code(s): J44.9 - Chronic obstructive pulmonary disease, unspecified Category: Medical Qualifiers: COPD type: COPD with acute exacerbation Qualified Code(s): J44.1 - Chronic obstructive pulmonary disease with (acute) exacerbation (3) Supplemental oxygen dependent: Code(s): Z99.81 - Dependence on supplemental oxygen Category: Medical (4) WOJCIECH (obstructive sleep apnea): Comment: (AHI 51.4 on 07/21/14 sleep study) Code(s): G47.33 - Obstructive sleep apnea (adult) (pediatric) Category: Medical Plan COPD baseline well controlled on current regimen of Breo, albuterol MDI/duo nebs. Continue current regimen. Continue supplemental oxygen to maintain O2 saturation of 88-92%. Continue noninvasive nocturnal ventilation for underlying WOJCIECH and CO2 retention. Coding Level of Care Code Est Pt Level 4 (80551) Complex EM visit Add On G2211 Diagnoses CO2 retention E87.29 Chronic obstructive pulmonary disease with acute exacerbation J44.1 COPD type: COPD with acute exacerbation Supplemental oxygen dependent Z99.81 WOJCIECH (obstructive sleep apnea) G47.33
== END 2024-04-23 14:01 | disposition home or self-care (01) ==
PROVIDERS: PCP Internal Medicine; Visit Provider Internal Medicine Pulmonary Disease
DX: E87.29 Other acidosis (principal); J44.1 Chronic obstructive pulmonary disease with (acute) exacerbation; Z99.81 Dependence on supplemental oxygen; G47.33 Obstructive sleep apnea (adult) (pediatric)
CPT/HCPCS: 99214; G2211

== ENCOUNTER → 2024-04-23 13:20 | Outpatient (BNVA) | payer MEDICARE, MEDICAID, SELFPAY | PROVIDERS: PCP Internal Medicine; Visit Provider Internal Medicine Pulmonary Disease | DX: J44.1 Chronic obstructive pulmonary disease with (acute) exacerbation (principal); E87.29 Other acidosis; G47.33 Obstructive sleep apnea (adult) (pediatric); Z99.81 Dependence on supplemental oxygen | CPT/HCPCS: 99212 ==

== ENCOUNTER 2024-05-29 11:17 | Outpatient (REF) | payer MEDICARE, MEDICAID, SELFPAY ==
[2024-05-29 12:11] LABS: MANUAL DIFF FLAG NO
[2024-05-29 12:51] LABS: B Type Natriuretic Peptide 144 pg/mL (<100)
[2024-05-29 13:00] LABS: Alanine Aminotransferase 9 U/L (0-31); Albumin Level 3.3 g/dL (3.5-5.0); Alkaline Phosphatase 82 U/L (39-117); Anion Gap 13 (12-20); Aspartate Amino Transferase 22 U/L (5-31); Bilirubin Total 0.3 mg/dL (0.0-1.0); Blood Urea Nitrogen 12 mg/dL (9-16); Calcium 9.4 mg/dL (8.4-10.2); Carbon Dioxide 39 mmol/L (22-29); Chloride 92 mmol/L (96-108); Estimated Glomerular Filt Rate > 60; Glucose Random 117 mg/dL (60-115); Potassium 3.3 mmol/L (3.3-5.1); Sodium 141 mmol/L (135-145); Total Protein 7.2 g/dL (6.5-8.0)
[2024-05-29 13:22] LABS: Free T4 (Free Thyroxine) 1.06 ng/dL (0.71-1.85); Thyroid Stimulating Hormone 0.83 uIU/mL (0.32-4.0)
[2024-05-29 13:33] LABS: Basophils Percent Auto 0.5 % (0-2); Eosinophils Absolute Auto 0.1 X10*3/uL (0.0-0.4); Hemoglobin 12.4 g/dl (12.0-16.0); Imm Gran Abs Auto 0.03 X10*3/uL (0.00-0.03); Imm Gran Pct Auto 0.3 % (0.0-0.4); Lymphocytes Absolute Auto 1.8 X10*3/uL (1.2-4.9); Lymphocytes Percent Auto 20.3 % (20-40); Mean Corpuscular Hemoglobin 29.4 pg (27.0-33.0); Mean Corpuscular Volume 94.8 fL (80.0-98.0); Monocytes Percent Auto 11.6 % (2-11); Neutrophils Absolute Auto 5.9 x10*3/uL (2.0-8.3); Neutrophils Percent Auto 66.3 % (45-73); Platelet Count 230 X10*3/uL (160-400); Red Blood Count 4.22 X10*6/uL (4.20-5.50); White Blood Count 8.8 X10*3/uL (4.8-10.8)
== END 2024-05-29 11:18 | disposition home or self-care (01) ==
LOC: HO.LAB 11:17
PROVIDERS: Absent Provider Internal Medicine; PCP Internal Medicine; Visit Provider Internal Medicine Pulmonary Disease
DX: I48.91 Unspecified atrial fibrillation (principal); J44.9 Chronic obstructive pulmonary disease, unspecified; I10 Essential (primary) hypertension; G47.33 Obstructive sleep apnea (adult) (pediatric); E87.29 Other acidosis; Z99.81 Dependence on supplemental oxygen
CPT/HCPCS: 36415; 80053; 83735; 83880; 84439; 84443; 85025; 99212

== ENCOUNTER 2024-09-26 22:38 | Inpatient (IN) | payer MEDICARE, MEDICAID, SELFPAY ==
--- NOTE | 2024-09-26 | ECG_ITS ---
Test Reason : afib Blood Pressure : / mmHG Vent. Rate : 112 BPM Atrial Rate : 000 BPM P-R Int : 000 ms QRS Dur : 124 ms QT Int : 314 ms P-R-T Axes : 000 -46 078 degrees QTc Int : 428 ms Atrial fibrillation with rapid ventricular response Left anterior fascicular block Cannot rule out Anterior infarct (cited on or before 08-APR-2024) Abnormal ECG When compared with ECG of 08-APR-2024 15:01, Incomplete right bundle branch block is no longer Present Referred By: Francisco Headley Electronically Signed By:KAL GRAVES MD
--- NOTE | ~2024-09-26 | XR_ITS ---
EXAMINATION: XR CHEST CLINICAL INFORMATION: Shortness of breath COMPARISON: Chest radiograph 04/09/2024 TECHNIQUE: Frontal view of the chest was obtained. FINDINGS: Dense aortic calcific atherosclerosis is present. The cardiac silhouette remains enlarged. No effusions or pneumothoraces identified. Diffuse pulmonary vascular indistinctness is noted. No focal pulmonary consolidation. XR/XR chest 1V IMPRESSION: *Pulmonary vascular congestion. No focal pulmonary consolidation. *Cardiomegaly. *Dense aortic calcific atherosclerosis. Electronically signed by: Brandin Reaves MD 09/27/2024 01:35 AM RUCHI
[2024-09-26 22:47] VITALS: BP 106/66; PULSE 120; O2SAT 97
[2024-09-26 22:50] VITALS: BP 135/96; PULSE 104; RESP 14; TEMP 36.4; O2SAT 96; BMI 34.8
--- NOTE | 2024-09-26 22:52 | ED_ITS ---
HPI - Arrhythmia/Palpitations General Chief Complaint: General Medical Stated Complaint: PALPITATIONS, A-FIB 120-160 Time Seen by Provider: 09/26/24 22:52 History of Present Illness HPI narrative: 79 years old chronic persistent atrial fibrillation , chronic respiratory failure related to COPD on home oxygen at 4 liters/minute , not on oral anticoagulation due to prior GI bleed, heart failure with preserved ejection fraction, morbid obesity, sleep apnea using CPAP comes here as she is not feeling good with increased shortness a breath since yesterday daughter noted her heart rate was fast EMS noticed her ventricular rate of 180 was given Cardizem patient did not feel palpitation on arrival patient's heart rate was 105 AFib patient is on Cardizem 240 mg daily and digoxin Related Data Home Medications ?Medication ?Instructions ?Recorded ?Confirmed atorvastatin 20 mg tablet 20 mg PO BEDTIME 10/13/20 04/09/24 omeprazole 20 mg capsule,delayed 20 mg PO DAILY@0630 10/13/20 04/09/24 release albuterol sulfate 2.5 mg/3 mL 1 vial inhalation Q4H PRN 01/07/22 04/09/24 (0.083 %) solution for nebulization Shortness Of Breath docusate sodium 100 mg capsule 100 mg PO TID Constipation 01/07/22 04/09/24 B-complex with vitamin C 1 tab PO DAILY 10/04/22 04/09/24 aspirin 81 mg tablet,delayed 81 mg PO BEDTIME 10/04/22 04/09/24 release buspirone 5 mg tablet 5 tab PO BID Anxiety 10/04/22 04/09/24 cholecalciferol (vitamin D3) 10 10 mcg PO DAILY 10/04/22 04/09/24 mcg (400 unit) tablet (Vitamin D3) lutein 20 mg capsule 20 mg PO DAILY 10/04/22 04/09/24 melatonin 5 mg tablet 5 mg PO BEDTIME PRN Insomnia 10/04/22 04/09/24 tramadol 50 mg tablet 1 tab PO BID PRN Pain 10/04/22 04/09/24 buspirone 5 mg tablet 5 mg PO DAILY PRN Anxiety 08/08/23 04/09/24 hydroxyzine pamoate 25 mg capsule 25 mg PO DAILY PRN anxiety 08/08/23 04/09/24 nystatin 100,000 unit/gram topical 1 appl topical BID PRN Rash 08/08/23 04/09/24 powder omega 5-mdu-pjs-fish oil 1,000 mg 1 cap PO DAILY 08/08/23 04/09/24 (120 mg-180 mg) capsule (Fish Oil) torsemide 20 mg tablet 40 mg PO DAILY 08/08/23 04/09/24 acetaminophen 325 mg tablet 650 mg PO Q4H PRN Pain 04/09/24 04/09/24 digoxin 125 mcg (0.125 mg) tablet 0.125 mg PO Q48H 04/09/24 04/09/24 vitamin E 268 mg (400 unit) capsule 268 mg PO DAILY 04/09/24 04/09/24 vitamins A,C,A-eysa-qkqrzr 2,148 2 tab PO BID 04/09/24 04/09/24 mcg-113 mg-45 mg-17.4 mg tablet (PreserVision AREDS) Previous Rx's ?Medication ?Instructions ?Recorded guaifenesin 600 mg tablet, 600 mg PO BID #20 tabs 11/03/20 extended release 12 hr (Mucinex) diltiazem HCl 240 mg 240 mg PO DAILY #90 caps 04/12/24 capsule,extended release 24 hr fluticasone furoate 100 1 ea inhalation RDAILY #1 ea 04/12/24 mcg-vilanterol 25 mcg/dose inhalation powder (Breo Ellipta) prednisone 10 mg tablet See Taper PO DIRECTED #30 tabs 04/12/24 tiotropium bromide 18 mcg capsule 1 cap inhalation DAILY #90 04/15/24 with inhalation device inhalations ipratropium bromide 0.02 % 2.5 ml inhalation Q4H PRN for 09/25/24 solution for inhalation wheezing/ shortness of breath #62.5 mL Allergies Allergy/AdvReac Type Severity Reaction Status Date / Time ceftriaxone [From Rocephin] Allergy Unknown Unknown Verified 09/27/24 00:21 vancomycin Allergy Unknown itch, Verified 09/27/24 00:21 rash, hives Review of Systems 2 Review of Systems: Yes all other systems are reviewed and are negative PMFSH Past Medical History Medical History Supplemental oxygen dependent COPD (chronic obstructive pulmonary disease) Chronic lung disease Anemia History of non-ST elevation myocardial infarction (NSTEMI) (~09/2022) Osteoporosis Leukocytosis Dilated cbd, acquired Cholecystitis Gallstone Pancreatitis WOJCIECH (obstructive sleep apnea) Acute and chronic respiratory failure with hypercapnia Diastolic CHF with preserved left ventricular function, NYHA class 2 Cor pulmonale, chronic Emphysema lung Surgical History History of squamous cell carcinoma excision Family History Family History Father Myocardial infarction Social History Social History Household Members: Children Household Members Other:: 2 daughter Housing: House Do you presently have visiting nurse or other home services: No Unable to assess alcohol history related to: Unknown Alcohol intake: never Comment: patient is high fall risk Patient Tobacco Use Status: Former Tobacco user Tobacco use type: Cigarette Cigarette Packs Per Day: 1 Cigarettes Per Day: 20.0 Years Smoked: 60 Smoked in Last 30 Days: No Second Hand Smoke Exposure: No Use of substances other than those prescribed or required for medical reasons: No Substance Use Type: Unknown Advance Directives: No Advance Directives Information Provided: No Do you have a plan to hurt others: No Plan service: No Current occupational status: retired Physical Exam 2 Vital Signs: Vital Signs: Last Vital Signs Temp 98.2 F 09/27/24 02:02 Pulse 108 H 09/27/24 02:02 Resp 20 09/27/24 02:02 BP 118/85 09/27/24 02:02 Pulse Ox 96 09/27/24 02:02 O2 Del Method Nasal Cannula 09/27/24 02:02 O2 Flow Rate 4 09/27/24 02:02 Oxygen Flow Rate 4 09/26/24 22:50 BMI result Body Mass Index 34.8 Appearance: Alert. Oriented X3. No acute distress. Eyes: No pallor or icterus ENT: Pharynx normal. Oral Mucosa moist Neck: Normal inspection. Neck supple. CVS: Tachycardia irregularly irregular. Pulses normal. Respiratory: No respiratory distress. Equal air entry bilateral, no wheezing/rales/rhonchi Abdomen: Soft and nontender. Bowel sounds are present, Skin: Skin warm and dry. Normal skin color. Normal skin turgor. Extremities: No lower extremity edema. No calf tenderness Neuro: Oriented X 3. No motor deficit. Medications Administered Discontinued Medications Generic Name Dose Route Start Last Admin Trade Name Alec PRN Reason Stop Dose Admin Digoxin 0.5 mg 09/27/24 01:28 09/27/24 02:11 Digoxin 0.5 Mg/2 Ml Ampul IVPUSH 09/27/24 01:29 0.5 mg ONCE ONE Administration Protocol Diltiazem HCl 10 mg 09/26/24 23:46 09/26/24 23:57 Diltiazem Hcl 50 Mg/10 Ml Vial IVPUSH 09/26/24 23:47 10 mg STAT STA Administration Medical Decision Making Medical Decision Making [facility] Narrative: Patient with AFib with rapid ventricular rate on digoxin and diltiazem was low IV digoxin was given still patient's heart rate in the 120s will admit patient will start IV Cardizem Differential Diagnosis Differential Diagnoses: The differential diagnosis associated with the presentation includes Lab Data [facility] Lab Attestation statement: I reviewed the patient's lab results. 09/26/24 23:32 09/26/24 23:32 Labs: Lab Results 09/26/24 09/27/24 Range/Units 23:32 02:02 WBC 7.9 (4.8-10.8) X10*3/uL RBC 4.03 L (4.20-5.50) X10*6/uL Hgb 12.2 (12.0-16.0) g/dl Hct 37.0 (37.0-47.0) % MCV 91.8 (80.0-98.0) fL MCH 30.3 (27.0-33.0) pg MCHC 33.0 (31.0-35.0) g/dl RDW 13.8 (11.0-16.0) % Plt Count 167 D (160-400) X10*3/uL MPV 11.7 (9.4-12.3) fL Immature Gran % (Auto) 0.3 (0.0-0.4) % Neut % (Auto) 64.8 (45-73) % Lymph % (Auto) 23.7 (20-40) % [place] % (Auto) 9.4 (2-11) % Eos % (Auto) 1.4 (0-4) % Baso % (Auto) 0.4 (0-2) % Lymph # (Auto) 1.9 (1.2-4.9) X10*3/uL [place] # (Auto) 0.7 (0.1-1.2) X10*3/uL Eos # (Auto) 0.1 (0.0-0.4) X10*3/uL Baso # (Auto) 0.0 (0.0-0.2) X10*3/uL Abs Immat Gran (auto) 0.02 (0.00-0.03) X10*3/uL Absolute Neuts (auto) 5.1 (2.0-8.3) x10*3/uL Absolute Nucleated RBC 0.000 (0.0-0.012) X10*3/uL Nucleated RBC % (auto) 0.0 (0.0-0.2) /100WBC PT 11.8 (10.9-12.4) SEC INR 1.0 (0.9-1.1) APTT 32.7 (26.0-36.8) SEC Sodium 141 (135-145) mmol/L Potassium 3.7 (3.3-5.1) mmol/L Chloride 99 (96-108) mmol/L Carbon Dioxide 30 H (22-29) mmol/L Anion Gap 16 (12-20) BUN 11 (9-16) mg/dL Creatinine 0.75 (0.5-1.4) mg/dL Estim Creat Clear Calc TNP Estimated GFR > 60 Random Glucose 119 H (60-115) mg/dL Calcium 10.2 D (8.4-10.2) mg/dL Magnesium 2.0 (1.6-2.6) mg/dL Total Bilirubin 0.3 (0.0-1.0) mg/dL AST 28 (5-31) U/L ALT 13 (0-31) U/L Alkaline Phosphatase 82 (39-117) U/L Troponin I High Sens 64.7 H* D 73.1 H* (<3.5-17.0) ng/L B-Natriuretic Peptide 373 H (<100) pg/mL Total Protein 7.5 (6.5-8.0) g/dL Albumin 3.7 (3.5-5.0) g/dL Digoxin 0.2 L (0.8-2.0) ng/mL Discharge Plan Discharge Clinical Impression: Atrial fibrillation with rapid ventricular response, Hypoxemic respiratory failure, chronic Patient Disposition: Admitted As Inpatient Print Language: Cuban
[2024-09-26 23:37] LABS: MANUAL DIFF FLAG NO
[2024-09-26 23:38] LABS: Basophils Percent Auto 0.4 % (0-2); Eosinophils Absolute Auto 0.1 X10*3/uL (0.0-0.4); Eosinophils Percent Auto 1.4 % (0-4); Hemoglobin 12.2 g/dl (12.0-16.0); Imm Gran Abs Auto 0.02 X10*3/uL (0.00-0.03); Imm Gran Pct Auto 0.3 % (0.0-0.4); Lymphocytes Absolute Auto 1.9 X10*3/uL (1.2-4.9); Lymphocytes Percent Auto 23.7 % (20-40); Mean Corpuscular Hemoglobin 30.3 pg (27.0-33.0); Mean Corpuscular Volume 91.8 fL (80.0-98.0); Mean Platelet Volume 11.7 fL (9.4-12.3); Monocytes Absolute Auto 0.7 X10*3/uL (0.1-1.2); Monocytes Percent Auto 9.4 % (2-11); Neutrophils Absolute Auto 5.1 x10*3/uL (2.0-8.3); Neutrophils Percent Auto 64.8 % (45-73); Platelet Count 167 X10*3/uL (160-400); Red Blood Count 4.03 X10*6/uL (4.20-5.50); Red Cell Distribution Width 13.8 % (11.0-16.0); White Blood Count 7.9 X10*3/uL (4.8-10.8)
[2024-09-26 23:43] LABS: Prothrombin Time 11.8 SEC (10.9-12.4)
[2024-09-26 23:46] LABS: Partial Thromboplastin Time 32.7 SEC (26.0-36.8)
[2024-09-26 23:55] LABS: Digoxin 0.2 ng/mL (0.8-2.0)
[2024-09-26 23:56] LABS: Alanine Aminotransferase 13 U/L (0-31); Albumin Level 3.7 g/dL (3.5-5.0); Alkaline Phosphatase 82 U/L (39-117); Anion Gap 16 (12-20); Aspartate Amino Transferase 28 U/L (5-31); Bilirubin Total 0.3 mg/dL (0.0-1.0); Blood Urea Nitrogen 11 mg/dL (9-16); Calcium 10.2 mg/dL (8.4-10.2); Carbon Dioxide 30 mmol/L (22-29); Chloride 99 mmol/L (96-108); Estimated Glomerular Filt Rate > 60; Glucose Random 119 mg/dL (60-115); Potassium 3.7 mmol/L (3.3-5.1); Sodium 141 mmol/L (135-145); Total Protein 7.5 g/dL (6.5-8.0)
[2024-09-26 23:57] VITALS: BP 135/96; PULSE 158
[2024-09-26] MEDS: dilTIAZem HCL 50 MG/10 ML VIAL 10 MG IVPUSH (23:57)
[2024-09-27] VITALS (13 sets, daily range): BP systolic 106–157; BP diastolic 56–85; PULSE 72–125; RESP 15–20; TEMP 36.4–36.8; O2SAT 93–98; BMI 35.6
[2024-09-27 00:01] LABS: B Type Natriuretic Peptide 373 pg/mL (<100)
[2024-09-27 00:08] LABS: Troponin-I High Sensitivity 64.7 ng/L (<3.5-17.0)
--- NOTE | 2024-09-27 01:06 | MHC.EDTECH ---
this tech assumed care @0178
[2024-09-27] MEDS: Digoxin 0.5 MG/2 ML AMPUL IVPUSH (02:11)
[2024-09-27 02:33] LABS: Troponin-I High Sensitivity 73.1 ng/L (<3.5-17.0)
--- NOTE | 2024-09-27 04:28 | P.HPHOSP_ITS ---
History of Present Illness Date of Service: 09/27/24 Attending physician on admission: Aaliyah Paige Chief Complaint: Shortness of breaths Macy Millan is 79 years old woman with past medical history significant for COPD/chronic hypoxic failure -home O2, atrial fibrillation -not on anticoag (event of GI bleeding), WOJCIECH on CPAP, CAD and HFpEF was brought to the emergency department via ambulance due to 2 days' history of shortness on breath most significant on exertion. She reported having 2 brief episodes of chest tightness that lasted for minutes. She has no chest pain at this time. She also complained of generalized weakness. Denied cough, fever, palpitations, dizziness or chills. She took her evening medications prior to arrival to the emergency department. She has a former 60+ pack per year smoker. In the ED, she was found to have tachycardia consistent with AFib. Or balance signs are stable. She is currently requiring 4 liters/minutes supplemental oxygen which is her baseline. Blood workup showed no leukocytosis. Hemoglobin is 12.2 and platelets 167. There are no electrolyte imbalances. CO2 is 30. LFTs are normal. Troponin is elevated 64.7 --> 73.1. Digoxin level is 0.2 (low). CXR showed pulmonary vascular congestion, but no consolidations or pleural effusions. ED tx: Diltiazem 10 mg IV, digoxin 0.5 mg IV Review of Systems 2 Review of Systems: All 12 systems were reviewed and normal except as noted in HPI. [facility] Medical History Supplemental oxygen dependent COPD (chronic obstructive pulmonary disease) Chronic lung disease Anemia History of non-ST elevation myocardial infarction (NSTEMI) (~09/2022) Osteoporosis Leukocytosis Dilated cbd, acquired Cholecystitis Gallstone Pancreatitis WOJCIECH (obstructive sleep apnea) Acute and chronic respiratory failure with hypercapnia Diastolic CHF with preserved left ventricular function, NYHA class 2 Cor pulmonale, chronic Emphysema lung Family History Father Myocardial infarction Surgical History History of squamous cell carcinoma excision Social History Household Members: Children Household Members Other:: 2 daughter Housing: House Do you presently have visiting nurse or other home services: No Unable to assess alcohol history related to: Unknown Alcohol intake: never Comment: patient is high fall risk Patient Tobacco Use Status: Former Tobacco user Tobacco use type: Cigarette Cigarette Packs Per Day: 1 Cigarettes Per Day: 20.0 Years Smoked: 60 Smoked in Last 30 Days: No Second Hand Smoke Exposure: No Use of substances other than those prescribed or required for medical reasons: No Substance Use Type: Unknown Advance Directives: No Advance Directives Information Provided: No Do you have a plan to hurt others: No Plan service: No Current occupational status: retired Meds Allergies Allergy/AdvReac Type Severity Reaction Status Date / Time ceftriaxone [From Rocephin] Allergy Unknown Unknown Verified 09/27/24 00:21 vancomycin Allergy Unknown itch, Verified 09/27/24 00:21 rash, hives Active Medications: Current Medications Acetaminophen (Acetaminophen 325 Mg Tablet) 975 mg PO Q6H PRN PRN Reason: Pain, Mild (Pain Scale 1-3), fever or headache Diltiazem HCl (Diltiazem Hcl 30 Mg Tablet) 30 mg PO ONCE ONE; Protocol Stop: 09/27/24 04:24 Diltiazem HCl 125 mg/ Sodium (Chloride) 125 mls @ 0 mls/hr IVCONT .Q0M KALPESH; Protocol Sodium Chloride (0.9 % Sodium Chloride Flush 3 Ml Syringe) 3 ml IVFLUSH QSHIFT [facility] Home Medications ?Medication ?Instructions ?Recorded ?Confirmed ?Last Taken ?Type atorvastatin 20 mg tablet 20 mg PO BEDTIME 10/13/20 04/09/24 04/08/24 09:00 History omeprazole 20 mg capsule,delayed 20 mg PO DAILY@0630 10/13/20 04/09/24 04/08/24 09:00 History release albuterol sulfate 2.5 mg/3 mL 1 vial inhalation Q4H PRN 01/07/22 04/09/24 04/08/24 09:00 History (0.083 %) solution for nebulization Shortness Of Breath docusate sodium 100 mg capsule 100 mg PO TID Constipation 01/07/22 04/09/24 04/08/24 09:00 History B-complex with vitamin C 1 tab PO DAILY 10/04/22 04/09/24 04/08/24 09:00 History aspirin 81 mg tablet,delayed 81 mg PO BEDTIME 10/04/22 04/09/24 04/08/24 09:00 History release buspirone 5 mg tablet 5 tab PO BID Anxiety 10/04/22 04/09/24 04/08/24 09:00 History cholecalciferol (vitamin D3) 10 10 mcg PO DAILY 10/04/22 04/09/24 04/08/24 09:00 History mcg (400 unit) tablet (Vitamin D3) lutein 20 mg capsule 20 mg PO DAILY 10/04/22 04/09/24 04/08/24 09:00 History melatonin 5 mg tablet 5 mg PO BEDTIME PRN Insomnia 10/04/22 04/09/24 04/08/24 09:00 History tramadol 50 mg tablet 1 tab PO BID PRN Pain 10/04/22 04/09/24 04/08/24 09:00 History buspirone 5 mg tablet 5 mg PO DAILY PRN Anxiety 08/08/23 04/09/24 04/08/24 09:00 History hydroxyzine pamoate 25 mg capsule 25 mg PO DAILY PRN anxiety 08/08/23 04/09/24 04/08/24 09:00 History nystatin 100,000 unit/gram topical 1 appl topical BID PRN Rash 08/08/23 04/09/24 04/08/24 09:00 History powder omega 7-mrw-ezf-fish oil 1,000 mg 1 cap PO DAILY 08/08/23 04/09/24 04/08/24 09:00 History (120 mg-180 mg) capsule (Fish Oil) torsemide 20 mg tablet 40 mg PO DAILY 08/08/23 04/09/24 04/08/24 09:00 History acetaminophen 325 mg tablet 650 mg PO Q4H PRN Pain 04/09/24 04/09/24 Unknown History digoxin 125 mcg (0.125 mg) tablet 0.125 mg PO Q48H 04/09/24 04/09/24 04/08/24 09:00 History vitamin E 268 mg (400 unit) capsule 268 mg PO DAILY 04/09/24 04/09/24 04/08/24 09:00 History vitamins A,C,D-hogs-dtrlph 2,148 2 tab PO BID 04/09/24 04/09/24 04/08/24 History mcg-113 mg-45 mg-17.4 mg tablet (PreserVision AREDS) Physical Exam 2 Vital Signs and Narrative: Vital Signs: Last Vital Signs Temp 98.2 F 09/27/24 02:02 Pulse 108 H 09/27/24 02:02 Resp 20 09/27/24 02:02 BP 118/85 09/27/24 02:02 Pulse Ox 96 09/27/24 02:02 O2 Del Method Nasal Cannula 09/27/24 02:02 O2 Flow Rate 4 09/27/24 02:02 Oxygen Flow Rate 4 09/26/24 22:50 BMI result Body Mass Index 34.8 Constitutional - Awake and Alert, No apparent distress. Obese. Afebrile. HEENT - PER, EOMI Heart - Irregular rhythm. Tachycardic. Lungs - Normal lung expansion, Normal respiratory effort, No respiratory distress, CTA bilaterally Abdomen - NT / ND; +BS; No rebound or guarding Extremities - no calf tenderness bilaterally, no swelling Musculoskeletal - Normal inspection, normal ROM Skin - Warm/Dry Neurological - Alert & oriented x3. No focal weakness grossly noted. Psychological - Appropriate affect Results Labs 09/26/24 23:32 09/26/24 23:32 Labs: Laboratory Results - last 24 hr 09/26/24 09/27/24 23:32 02:02 MCV 91.8 MCH 30.3 MCHC 33.0 RDW 13.8 Plt Count 167 D MPV 11.7 Immature Gran % (Auto) 0.3 Neut % (Auto) 64.8 Lymph % (Auto) 23.7 [place] % (Auto) 9.4 Eos % (Auto) 1.4 Baso % (Auto) 0.4 Lymph # (Auto) 1.9 [place] # (Auto) 0.7 Eos # (Auto) 0.1 Baso # (Auto) 0.0 Abs Immat Gran (auto) 0.02 Absolute Neuts (auto) 5.1 Absolute Nucleated RBC 0.000 Nucleated RBC % (auto) 0.0 PT 11.8 INR 1.0 APTT 32.7 Anion Gap 16 Estim Creat Clear Calc TNP Estimated GFR > 60 Random Glucose 119 H Calcium 10.2 D Magnesium 2.0 Total Bilirubin 0.3 AST 28 ALT 13 Alkaline Phosphatase 82 Troponin I High Sens 64.7 H* D 73.1 H* B-Natriuretic Peptide 373 H Total Protein 7.5 Albumin 3.7 Digoxin 0.2 L Assessment and Plan (1) Atrial fibrillation with rapid ventricular response: Status: Acute (2) Elevated troponin: Status: Acute Plan Macy Millan is 79 y/o woman admitted with: * Rapid atrial fibrillation (HR currently fluctating between 80 -106) -hold diltiazem drip. Admit to hospitalist service. Telemetry. Pulse oximetry. Continue diltiazem PO (unsure if pt is currently takes digoxin as she does not recall the name of her medications). Hesitated about starting anticoagulation due to event of GI bleeding on 08/04/2023 (she used to take Xarelto). Continue baby aspirin. * Elevated troponin -likely demand ischemia. Currently denied any chest pain (had 2 brief episode of chest pain at home). Recheck troponin later in the morning. Cardiology consult. * Hyperlipidemia. Continue statin. * HFpEF. Continue torsemide. * COPD/chronic hypoxic respiratory failure/OHS. Continue O2 therapy to keep O2 sats between 88-90%. Continue home inhalers. * WOJCIECH. Continue nocturnal CPAP. * CAD. Continue statin and aspirin. * Obesity. BMI 34.8 kg/m2. Weight loss. DVT prophylaxis: SCDs Code status: Full Patient will need hospitalization for at least 2 midnights for rapid atrial fibrillation control with antiarrhythmic agents, close cardiac and last monitoring as well as evaluation by subspecialty. Quality Stroke Does the patient have a stroke diagnosis?: No VTE Prior VTE?: No VTE Risk Level:: Medical - moderate - high VTE Device Contraindication: N/A - Device Ordered VTE Drug Contraindication: Treatment Not Indicated
[2024-09-27] MEDS: dilTIAZem HCL 30 MG TABLET PO (05:03)
[2024-09-27 06:10] LABS: Anion Gap 15 (12-20); Blood Urea Nitrogen 10 mg/dL (9-16); Calcium 9.5 mg/dL (8.4-10.2); Carbon Dioxide 26 mmol/L (22-29); Chloride 100 mmol/L (96-108); Creatinine Clr Calc Pharmacy 64.4; Estimated Glomerular Filt Rate > 60; Glucose Random 131 mg/dL (60-115); Potassium 5.3 mmol/L (3.3-5.1); Sodium 136 mmol/L (135-145)
[2024-09-27 06:50] LABS: Basophils Percent Auto 0.4 % (0-2); Eosinophils Absolute Auto 0.1 X10*3/uL (0.0-0.4); Eosinophils Percent Auto 1.7 % (0-4); Hematocrit 39.6 % (37.0-47.0); Hemoglobin 12.9 g/dl (12.0-16.0); Imm Gran Abs Auto 0.06 X10*3/uL (0.00-0.03); Imm Gran Pct Auto 0.8 % (0.0-0.4); Lymphocytes Absolute Auto 1.6 X10*3/uL (1.2-4.9); Lymphocytes Percent Auto 21.3 % (20-40); Mean Corpuscular HGB Conc 32.6 g/dl (31.0-35.0); Mean Corpuscular Hemoglobin 30.1 pg (27.0-33.0); Mean Corpuscular Volume 92.3 fL (80.0-98.0); Mean Platelet Volume 10.4 fL (9.4-12.3); Monocytes Absolute Auto 0.7 X10*3/uL (0.1-1.2); Monocytes Percent Auto 9.5 % (2-11); Neutrophils Percent Auto 66.3 % (45-73); Platelet Count 205 X10*3/uL (160-400); Red Blood Count 4.29 X10*6/uL (4.20-5.50); White Blood Count 7.6 X10*3/uL (4.8-10.8)
[2024-09-27] MEDS: 0.9 % Sodium Chloride Flush 3 ML SYRINGE IVFLUSH ×2 (09:38→22:10)
[2024-09-27] MEDS: Sodium Polystyrene Sulfon/Sorb 15 GM/60 ML ORAL.SUSP 30 GM PO (09:39)
[2024-09-27 09:53] LABS: Troponin-I High Sensitivity 57.7 ng/L (<3.5-17.0)
--- NOTE | 2024-09-27 10:15 | P.CONCA_ITS ---
History of Present Illness History of Present Illness Date of Service: 09/27/24 Requesting physician: Carmel Disla Consult reason: atrial fibrillation and congestive heart failure Chief complaint: rapid Afib Narrative: I was consulted to see Macy in cardiology consultation today for management of atrial fibrillation and congestive heart failure. Patient is 79-year-old female, says that she is not very compliant with treatment plan with past history of COPD with chronic respiratory failure on home oxygen with prior history of CO2 retention, obstructive sleep apnea, chronic persistent atrial fibrillation, obesity, heart failure preserved ejection fraction with last LV ejection fraction 55-60% by echocardiogram in May of 2023, no reported history of myocardial infarction but history of NSTEMI question related to respiratory failure in 2021. No obvious ischemic evaluation. Patient present hospital with difficulty breathing. Patient says she has been using oxygen at home and felt like she was not getting enough oxygen and felt like she was choking and came to the emergency room. In the emergency room she was noted to have mildly elevated troponin which are flat with no acute ischemic changes, atrial fibrillation rapid ventricular response, started on Cardizem drip but this was then held because of a borderline rate this morning her rate is elevated with atrial fibrillation. She is not on oral anticoagulation chronically because she had 1 episode of GI bleed long time ago obvious workup. She denies any chest tightness on ongoing basis has significant issues with COPD which limits her activity level. She says she is not interested in life since her many years ago. She says she is not very compliant with her treatment. Review of Systems 2 Constitutional: Constitutional: Reports no additional constitutional complaints Eyes: Eyes: Reports no additional eye complaints Cardiovascular: Cardiovascular: Denies chest pain, Denies rapid heart rate, Denies leg edema, Denies lightheadedness, Denies Loss of Consciousness, Denies palpitations and Reports dyspnea on exertion Respiratory: Respiratory: Reports cough and Reports dyspnea on exertion Gastrointestinal: Gastrointestinal: Reports no additional gastrointestinal complaints Musculoskeletal: Musculoskeletal: Reports no additional musculoskeletal complaints Integumentary/Breasts: Skin/Breast: Reports system reviewed and no additional complaints, except as docu Neurologic: Reports system reviewed and no additional complaints, except as documented Psychiatric: Psychiatric: Reports no additional psychiatric complaints Endocrine: Endocrine: Reports no additional endocrine complaints and Denies palpitations PMFSH Past Medical History Medical History (Updated 09/27/24 @ 10:21 by Cory Mckeon MD) Acute exacerbation of CHF (congestive heart failure) Supplemental oxygen dependent COPD (chronic obstructive pulmonary disease) Chronic lung disease Anemia History of non-ST elevation myocardial infarction (NSTEMI) (~09/2022) Osteoporosis Leukocytosis Dilated cbd, acquired Cholecystitis Gallstone Pancreatitis WOJCIECH (obstructive sleep apnea) Acute and chronic respiratory failure with hypercapnia Diastolic CHF with preserved left ventricular function, NYHA class 2 Cor pulmonale, chronic Emphysema lung Family History Family History Father Myocardial infarction Surgical History Surgical History History of squamous cell carcinoma excision Social History Social History Household Members: Children Household Members Other:: 2 daughter Housing: House Do you presently have visiting nurse or other home services: No Unable to assess alcohol history related to: Unknown Alcohol intake: never Comment: patient is high fall risk Patient Tobacco Use Status: Former Tobacco user Tobacco use type: Cigarette Cigarette Packs Per Day: 1 Cigarettes Per Day: 20.0 Years Smoked: 60 Smoked in Last 30 Days: No Second Hand Smoke Exposure: No Use of substances other than those prescribed or required for medical reasons: No Substance Use Type: Unknown Advance Directives: No Advance Directives Information Provided: No Do you have a plan to hurt others: No Plan service: No Current occupational status: retired Meds Allergies Allergy/AdvReac Type Severity Reaction Status Date / Time ceftriaxone [From Rocephin] Allergy Unknown Unknown Verified 09/27/24 00:21 vancomycin Allergy Unknown itch, Verified 09/27/24 00:21 rash, hives Active Medications: Current Medications Acetaminophen (Acetaminophen 325 Mg Tablet) 975 mg PO Q6H PRN PRN Reason: Pain, Mild (Pain Scale 1-3), fever or headache Diltiazem HCl 125 mg/ Sodium (Chloride) 125 mls @ 0 mls/hr IVCONT .Q0M [facility]; Protocol Sodium Chloride (0.9 % Sodium Chloride Flush 3 Ml Syringe) 3 ml IVFLUSH QSHIFT [facility] Last Admin: 09/27/24 09:38 Dose: 3 ml Home Medications ?Medication ?Instructions ?Recorded ?Confirmed ?Last Taken ?Type atorvastatin 20 mg tablet 20 mg PO BEDTIME 12/29/20 06/25/24 06/24/24 09:00 History omeprazole 20 mg capsule,delayed 20 mg PO DAILY@0630 10/13/20 04/09/24 04/08/24 09:00 History release albuterol sulfate 2.5 mg/3 mL 1 vial inhalation Q4H PRN 01/07/22 04/09/24 04/08/24 09:00 History (0.083 %) solution for nebulization Shortness Of Breath docusate sodium 100 mg capsule 100 mg PO TID Constipation 01/07/22 04/09/24 04/08/24 09:00 History B-complex with vitamin C 1 tab PO DAILY 10/04/22 04/09/24 04/08/24 09:00 History aspirin 81 mg tablet,delayed 81 mg PO BEDTIME 10/04/22 04/09/24 04/08/24 09:00 History release cholecalciferol (vitamin D3) 10 10 mcg PO DAILY 10/04/22 04/09/24 04/08/24 09:00 History mcg (400 unit) tablet (Vitamin D3) lutein 20 mg capsule 20 mg PO DAILY 10/04/22 04/09/24 04/08/24 09:00 History melatonin 5 mg tablet 5 mg PO BEDTIME PRN Insomnia 10/04/22 04/09/24 04/08/24 09:00 History tramadol 50 mg tablet 1 tab PO BID PRN Pain 10/04/22 04/09/24 04/08/24 09:00 History buspirone 5 mg tablet 5 mg PO DAILY PRN Anxiety 08/08/23 04/09/24 04/08/24 09:00 History hydroxyzine pamoate 25 mg capsule 25 mg PO DAILY PRN anxiety 08/08/23 04/09/24 04/08/24 09:00 History nystatin 100,000 unit/gram topical 1 appl topical BID PRN Rash 08/08/23 04/09/24 04/08/24 09:00 History powder omega 0-jnk-hzs-fish oil 1,000 mg 1 cap PO DAILY 08/08/23 04/09/24 04/08/24 09:00 History (120 mg-180 mg) capsule (Fish Oil) torsemide 20 mg tablet 40 mg PO DAILY 10/04/09/24 04/08/24 09:00 History acetaminophen 325 mg tablet 650 mg PO Q4H PRN Pain 04/09/24 04/09/24 Unknown History digoxin 125 mcg (0.125 mg) tablet 0.125 mg PO Q48H 04/09/24 04/09/24 04/08/24 09:00 History vitamin E 268 mg (400 unit) capsule 268 mg PO DAILY 04/09/24 04/09/24 04/08/24 09:00 History vitamins A,C,U-ppyi-wpwljd 2,148 2 tab PO BID 04/09/24 04/09/24 04/08/24 History mcg-113 mg-45 mg-17.4 mg tablet (PreserVision AREDS) Physical Exam 2 Vital Signs: Vital Signs: Last Vital Signs Temp 98.2 F 09/27/24 02:02 Pulse 100 09/27/24 05:03 Resp 20 09/27/24 02:02 BP 157/65 H 09/27/24 05:03 Pulse Ox 96 09/27/24 02:02 O2 Del Method Nasal Cannula 09/27/24 02:02 O2 Flow Rate 4 09/27/24 02:02 Oxygen Flow Rate 4 09/26/24 22:50 BMI result Body Mass Index 34.8 Const: General: cooperative, comfortable, alert, awake and in distress mild and respiratory Nutritional Appearance: obese Orientation/consciousness: p atient oriented x3 HEENT: Head: Yes normocephalic and Yes atraumatic Neck: Neck: Yes trachea midline, Yes supple and Yes JVD Resp: Effort & Inspection: normal respiratory effort Auscultation: crackles on the left at the base and diminished lung sounds Cardio: Jugular venous distension: JVD Rate: tachycardic Rhythm: a bnormal rhythm irregularly irregular Heart sounds: S1 normal heart sound present, S2 normal heart sound present, no click, no gallops and Murmur heart sound present systolic GI: Inspection: Yes obesity Auscultation: normal bowel sounds Skin: General skin exam: no rashes or lesions noted Neuro: General: patient oriented x3 and no focal motor deficits Extrem: General: Yes no clubbing, cyanosis or edema Objective Labs and Meds 09/27/24 06:41 09/27/24 05:47 Lab results: Laboratory Results - last 24 hr 09/26/24 09/27/24 09/27/24 23:32 02:02 05:47 WBC 7.9 RBC 4.03 L Hgb 12.2 Hct 37.0 MCV 91.8 MCH 30.3 MCHC 33.0 RDW 13.8 Plt Count 167 D MPV 11.7 Immature Gran % (Auto) 0.3 Neut % (Auto) 64.8 Lymph % (Auto) 23.7 Randolph % (Auto) 9.4 Eos % (Auto) 1.4 Baso % (Auto) 0.4 Lymph # (Auto) 1.9 Randolph # (Auto) 0.7 Eos # (Auto) 0.1 Baso # (Auto) 0.0 Abs Immat Gran (auto) 0.02 Absolute Neuts (auto) 5.1 Absolute Nucleated RBC 0.000 Nucleated RBC % (auto) 0.0 PT 11.8 INR 1.0 APTT 32.7 Sodium 141 136 Potassium 3.7 5.3 H D Chloride 99 100 Carbon Dioxide 30 H 26 Anion Gap 16 15 BUN 11 10 Creatinine 0.75 0.78 Estim Creat Clear Calc TNP 64.4 Estimated GFR > 60 > 60 Random Glucose 119 H 131 H Calcium 10.2 D 9.5 D Magnesium 2.0 Total Bilirubin 0.3 AST 28 ALT 13 Alkaline Phosphatase 82 Troponin I High Sens 64.7 H* D 73.1 H* B-Natriuretic Peptide 373 H Total Protein 7.5 Albumin 3.7 Digoxin 0.2 L 09/27/24 09/27/24 06:41 09:20 WBC 7.6 RBC 4.29 Hgb 12.9 Hct 39.6 MCV 92.3 MCH 30.1 MCHC 32.6 RDW 14.0 Plt Count 205 MPV 10.4 Immature Gran % (Auto) 0.8 H Neut % (Auto) 66.3 Lymph % (Auto) 21.3 Randolph % (Auto) 9.5 Eos % (Auto) 1.7 Baso % (Auto) 0.4 Lymph # (Auto) 1.6 Randolph # (Auto) 0.7 Eos # (Auto) 0.1 Baso # (Auto) 0.0 Abs Immat Gran (auto) 0.06 H Absolute Neuts (auto) 5.0 Absolute Nucleated RBC 0.000 Nucleated RBC % (auto) 0.0 PT INR APTT Sodium Potassium Chloride Carbon Dioxide Anion Gap BUN Creatinine Estim Creat Clear Calc Estimated GFR Random Glucose Calcium Magnesium Total Bilirubin AST ALT Alkaline Phosphatase Troponin I High Sens 57.7 H* B-Natriuretic Peptide Total Protein Albumin Digoxin Assessment and Plan (1) Atrial fibrillation with rapid ventricular response: Status: Acute Patient with rapid atrial fibrillation. Remains in rapid atrial fibrillation. Start IV Cardizem drip. Will obtain echocardiogram to assess for LV systolic function. Patient has longstanding atrial fibrillation and significant left atrial enlargement with last echocardiogram unlikely that rhythm control would be possible. Would give her IV digoxin loading. I would also consider restarting oral anticoagulation therapy and consider using Eliquis 5 mg b.i.d. and follow closely with her hemoglobin and risk for GI bleeding. She will require GI workup she has recurrent bleeding risk. Continue manage her underlying chronic respiratory failure with oxygen therapy and nebulizers. I think she was mild heart failure at this point time would switch her to IV diuretics. Strict intake and output chart needs to be pursued. Will follow with you. (2) Elevated troponin: Status: Acute Mildly elevated troponin but flat, related to Mibi hypoxemic respiratory failure and atrial fibrillation rapid ventricular response with demand ischemia. She was high likelihood of underlying obstructive coronary artery disease. May need workup from ischemic perspective as an outpatient. Continue aggressive rate control as above. Resume oral anticoagulation. Consider statin therapy. Will follow with you Procedures Date of Service Date of Service: 09/27/24
--- NOTE | 2024-09-27 11:08 | PM.EVENT ---
Event Note Date of Service: 09/27/24 Event Note: seen and evaluated this morning feels better, less dyspnea HR still running in 110-120s Start PO Cardizem Hold Drip IV lasix Cardiology consult Keep on TEle Time Spent With Patient Time: Total time managing care of this patient today ____ minutes.
--- NOTE | 2024-09-27 11:09 | PHA.MEDREC ---
Pharmacy Consult ? Medication Reconciliation Pharmacy has completed the medication reconciliation. Spoke to daughter Joselyn via phone [phone] to confirm medication list. Joselyn verified patient takes buspirone 7.5 mg bid, docusate 200 mg bid (scheduled) and 100 mg at noon (as needed), hydroxyzine 50 mg daily prn and torsemide 40 mg in the morning. For diltiazem, she said pt was supposed to be taking 240 mg but PCP prescribed dose incorrectly as 180 mg, dose was finally corrected to 240 mg the other day and pt took her first dose of 240 mg yesterday 09/27/24. Joselyn also confirmed pt no longer is taking Spiriva nor metoprolol tartrate. Patient herself said she takes trazodone 100 mg at bedtime prn sleep. Last dose of medications was yesterday evening.
[2024-09-27] MEDS: Apixaban 5 MG TABLET PO ×2 (11:11→22:10)
[2024-09-27] MEDS: dilTIAZem HCL CD 240 MG CAP.ER.DEG PO (11:11)
[2024-09-27] MEDS: Furosemide 20 MG/2 ML VIAL IVPUSH ×2 (11:14→20:05)
[2024-09-27] MEDS: Fluticasone/Vilanterol 100/25 BLST.W.DEV 1 PUFF INHALE (12:06)
[2024-09-27] MEDS: Digoxin 0.125 MG TABLET PO (12:31)
[2024-09-27] MEDS: guaiFENesin LA 600 MG TAB.ER.12H PO ×2 (12:31→22:10)
[2024-09-27] MEDS: Acetaminophen 325 MG TABLET 975 MG PO (12:32)
--- NOTE | 2024-09-27 16:46 | PC.NURSE ---
Assisted to hospital bed and awaits room assingment on the floor.
--- NOTE | 2024-09-27 19:31 | MHC.EDTECH ---
This pct assumed care of Patient at 1900 ,vitals taken ,Patient was set up with dinner ate 75 % of meal and drank 240 ml fluids ,CEDRIC Jamil is aware of Patient high heart rate and low blood Pressure .
--- NOTE | 2024-09-27 19:58 | PC.NURSE ---
Pt has no complaints at this time. a fib on monitor. Is aware of plan of care. NO CP or SOB at rest. plus 1 pitting edema.
[2024-09-27] MEDS: Atorvastatin Calcium 20 MG TABLET PO (22:10)
[2024-09-27] MEDS: traZODone HCL 100 MG TABLET PO (22:10)
[2024-09-27] MEDS: Docusate Sodium 100 MG CAPSULE 200 MG PO (22:10)
--- NOTE | 2024-09-27 23:17 | PC.RT ---
Patient has circular wound on forehead between eyes. approc 2.5 cm in diameter. RN made aware, documented. Area covered for nighttime CPAP mask usage.
[2024-09-28] VITALS (9 sets, daily range): BP systolic 105–133; BP diastolic 52–71; PULSE 17–147; RESP 17–20; TEMP 35.9–36.8; O2SAT 92–97
[2024-09-28] MEDS: Magnesium Sulfate/H2O 2 GM/50 ML PIGGYBACK IV ×2 (01:03→09:00)
[2024-09-28 01:11] LABS: Anion Gap 13 (12-20); Blood Urea Nitrogen 13 mg/dL (9-16); Calcium 9.5 mg/dL (8.4-10.2); Carbon Dioxide 36 mmol/L (22-29); Chloride 99 mmol/L (96-108); Creatinine Clr Calc Pharmacy 47.9; Estimated Glomerular Filt Rate 50; Glucose Random 110 mg/dL (60-115); Magnesium 1.9 mg/dL (1.6-2.6); Sodium 144 mmol/L (135-145)
[2024-09-28 01:23] LABS: Troponin-I High Sensitivity 58.7 ng/L (<3.5-17.0)
[2024-09-28] MEDS: Omeprazole 20 MG CAPSULE.DR PO (05:49)
[2024-09-28 08:02] LABS: Anion Gap 12 (12-20); Blood Urea Nitrogen 11 mg/dL (9-16); Carbon Dioxide 33 mmol/L (22-29); Chloride 100 mmol/L (96-108); Creatinine Clr Calc Pharmacy 63.5; Digoxin 0.9 ng/mL (0.8-2.0); Estimated Glomerular Filt Rate > 60; Glucose Random 111 mg/dL (60-115); Potassium 3.4 mmol/L (3.3-5.1); Sodium 142 mmol/L (135-145)
[2024-09-28] MEDS: Fluticasone/Vilanterol 100/25 BLST.W.DEV 1 PUFF INHALE (08:04)
[2024-09-28 08:16] LABS: B Type Natriuretic Peptide 359 pg/mL (<100)
[2024-09-28] MEDS: Multivitamin TABLET 1 TAB PO (08:48)
[2024-09-28] MEDS: dilTIAZem HCL CD 240 MG CAP.ER.DEG PO (08:48)
[2024-09-28] MEDS: guaiFENesin LA 600 MG TAB.ER.12H PO ×2 (08:49→20:17)
[2024-09-28] MEDS: Apixaban 5 MG TABLET PO ×2 (08:49→20:17)
[2024-09-28] MEDS: Cholecalciferol (Vitamin D3) 10 MCG TABLET PO (08:49)
[2024-09-28] MEDS: Docusate Sodium 100 MG CAPSULE 200 MG PO ×2 (08:50→20:17)
[2024-09-28] MEDS: 0.9 % Sodium Chloride Flush 3 ML SYRINGE IVFLUSH ×3 (08:50→20:26)
[2024-09-28] MEDS: Furosemide 20 MG/2 ML VIAL IVPUSH (08:50)
[2024-09-28] MEDS: dilTIAZem HCL 125 MG in 0.9 % Sodium Chloride 100 ML 10 MG IVCONT (10:04)
--- NOTE | 2024-09-28 10:42 | HO.PM.IMPN ---
Subjective Subjective Date of Service: 09/28/24 Interval History: Seen and evaluated this morning HR still up to 140s Denies any chest pain Abnormal rhythm noted concerning for Vfib; looks more Afib w abberancy , asymptomatic no other events Review of Systems Review of Systems: Yes all other systems are reviewed and are negative Physical Exam Vital Signs: Vital Signs: Last Vital Signs Temp 97.3 F 09/28/24 07:36 Pulse 147 H 09/28/24 10:04 Resp 18 09/28/24 08:06 BP 107/71 09/28/24 07:36 Pulse Ox 97 09/28/24 07:36 O2 Del Method Nasal Cannula 09/28/24 07:36 O2 Flow Rate 4 09/28/24 07:36 Oxygen Flow Rate 4 09/26/24 22:50 BMI result Body Mass Index 35.6 Const: Other: Constitutional : Awake, interactive, in mild respiratoy distress Neck : Normal inspection, Supple Cardiovascular : irregular irregular, no JVP, trace lower extremity edema, tachycardia Respiratory : decreased bilateral air entry, bilateral expiratory wheezes Gastrointestinal: soft, lax, Normal bowel sounds, Non tender Skin : Warm, Dry Neurological : Alert & oriented x3, No focal deficit Objective Data Active Medications Acetaminophen (Acetaminophen 325 Mg Tablet) 975 mg PO Q6H PRN PRN Reason: Pain, Mild (Pain Scale 1-3), fever or headache Last Admin: 09/27/24 12:32 Dose: 975 mg Documented By: CRESENCIO Apixaban (Apixaban 5 Mg Tablet) 5 mg PO BID [facility] Last Admin: 09/28/24 08:49 Dose: 5 mg Documented By: BALWINDER Atorvastatin Calcium (Atorvastatin Calcium 20 Mg Tablet) 20 mg PO BEDTIME [facility] Last Admin: 09/27/24 22:10 Dose: 20 mg Documented By: LYN Buspirone HCl (Buspirone Hcl 5 Mg Tablet) 7.5 mg PO BID PRN PRN Reason: Anxiety Digoxin (Digoxin 0.125 Mg Tablet) 0.125 mg PO Q48H [facility]; Protocol Last Admin: 09/27/24 12:31 Dose: 0.125 mg Documented By: CRESENCIO Diltiazem HCl (Diltiazem Hcl Cd 240 Mg Cap.Er.Deg) 240 mg PO DAILY [facility]; Protocol Last Admin: 12/14/24 08:48 Dose: 240 mg Documented By: BALWINDER Docusate Sodium (Docusate Sodium 100 Mg Capsule) 100 mg PO DAILY@1200 PRN PRN Reason: Constipation Docusate Sodium (Docusate Sodium 100 Mg Capsule) 200 mg PO BID [facility] Last Admin: 09/28/24 08:50 Dose: 200 mg Documented By: BALWINDER Fluticasone/Vilanterol (Fluticasone/Vilanterol 100/25 Blst.W.Dev) 1 puff INHALE RDAILY [facility] Last Admin: 09/28/24 08:04 Dose: 1 puff Documented By: BRYN Furosemide (Furosemide 20 Mg/2 Ml Vial) 20 mg IVPUSH BID@0900,1800 [facility]; Protocol Last Admin: 09/28/24 08:50 Dose: 20 mg Documented By: BALWINDER Guaifenesin (Guaifenesin La 600 Mg Tab.Er.12h) 600 mg PO BID [facility] Last Admin: 09/28/24 08:49 Dose: 600 mg Documented By: BALWINDER Hydroxyzine HCl (Hydroxyzine Hcl 50 Mg Tablet) 50 mg PO DAILY PRN PRN Reason: anxiety Diltiazem HCl 125 mg/ Sodium (Chloride) 125 mls @ 0 mls/hr IVCONT .Q0M [facility]; Protocol Last Admin: 09/28/24 10:04 Dose: 10 mg/hr, 10 mls/hr Documented By: BALWINDER Ipratropium [place] (Ipratropium [place] 0.5 Mg/2.5 Ml Solution) 0.5 mg INHALE Q4H PRN PRN Reason: for wheezing/ shortness of breath Multivitamins/Vitamin C (Multivitamin Tablet) 1 tab PO DAILY [facility] Last Admin: 09/28/24 08:48 Dose: 1 tab Documented By: BALWINDER Omeprazole (Omeprazole 20 Mg Capsule.Dr) 20 mg PO DAILY@0630 [facility] Last Admin: 09/28/24 05:49 Dose: 20 mg Documented By: LYN Sodium Chloride (0.9 % Sodium Chloride Flush 3 Ml Syringe) 3 ml IVFLUSH QSHIFT [facility] Last Admin: 09/28/24 08:50 Dose: 3 ml Documented By: BALWINDER Tramadol HCl (Tramadol Hcl 50 Mg Tablet) 50 mg PO BID PRN PRN Reason: Pain, Moderate(Pain Scale 4-6) Trazodone HCl (Trazodone Hcl 100 Mg Tablet) 100 mg PO BEDTIME PRN PRN Reason: Sleep Last Admin: 09/27/24 22:10 Dose: 100 mg Documented By: LYN Vitamin D (Cholecalciferol (Vitamin D3) 10 Mcg Tablet) 10 mcg PO DAILY [facility] Last Admin: 09/28/24 08:49 Dose: 10 mcg Documented By: BALWINDER Labs 09/27/24 06:41 09/28/24 06:50 Labs: Laboratory Results - last 24 hr 09/28/24 09/28/24 00:43 06:50 Anion Gap 13 12 Estim Creat Clear Calc 47.9 63.5 Estimated GFR 50 > 60 Random Glucose 110 111 Calcium 9.5 9.0 Magnesium 1.9 Troponin I High Sens 58.7 H* B-Natriuretic Peptide 359 H Digoxin 0.9 Assessment and Plan (1) Elevated troponin: Status: Acute (2) Atrial fibrillation with rapid ventricular response: Status: Acute (3) Acute exacerbation of CHF (congestive heart failure): Status: Resolved Plan Macy Wall is 79 y/o woman admitted with: Atrial fibrillation w RvR HR in 140s restart diltiazem drip Keep on Telemetry Continue diltiazem PO DC baby aspirin. start Eliquis and monitor for any bleeding (she did not follow with EGD\Colonoscopy when she had reported GI bleed last year) - discuss with GI Elevated troponin likely demand ischemia. denies any chest pain Cardiology following acute on chronic HFpEF. Continue lasix I\O follow BNP Hyperlipidemia. Continue statin. COPD/chronic hypoxic respiratory failure/OHS. Continue O2 therapy to keep O2 sats between 88-90%. Continue home inhalers. WOJCIECH. Continue nocturnal CPAP. PAD. Continue statin and aspirin. Obesity. BMI 34.8 kg/m2. advised Weight loss. DVT prophylaxis: SCDs Code status: Full Patient will need hospitalization overnight for rapid atrial fibrillation control with IV agents, close cardiac monitoring Quality Stroke Does the patient have a stroke diagnosis?: No VTE Prior VTE?: No VTE Risk Level:: Medical - moderate - high VTE Device Contraindication: N/A - Device Ordered VTE Drug Contraindication: Treatment Not Indicated
--- NOTE | 2024-09-28 11:03 | MHC.CM.PN ---
IMM 09/28. Pt lives at home with her daughter/HCP Btehany. Pt uses a walker and has home O2 through [facility]. Pts daughter Ailyn will transport her home. HCP on file and verified. PCP: Dr. Clint Tong
--- NOTE | 2024-09-28 13:49 | PM.PNCARD ---
Subjective Subjective Date of Service: 09/28/24 Principal diagnosis: Atrial fibrillation with rapid ventricular response, CHF Interval history: Patient remains in rapid atrial fibrillation difficult control. Received 1 dose of digoxin overnight had 0.5 mg. Remains on 10 mg of Cardizem drip. No clear wheezing. Intake and output chart are not adequately maintain all the patient says breathing is improved. She has been diuresing Review of Systems Constitutional: Reports no additional constitutional complaints Eyes: Reports no additional eye complaints Cardiovascular: Denies chest pain, Reports rapid heart rate, Denies lightheadedness, Denies Loss of Consciousness and Reports dyspnea (Improved) Respiratory: Reports no additional respiratory complaints and Reports dyspnea (Improved) Gastrointestinal: Reports no additional gastrointestinal complaints Physical Exam Vital Signs: Last Vital Signs Temp 98.3 F 09/28/24 12:00 Pulse 78 09/28/24 13:06 Resp 20 09/28/24 12:00 BP 105/52 L 09/28/24 12:00 Pulse Ox 96 09/28/24 12:00 O2 Del Method Nasal Cannula 09/28/24 12:00 O2 Flow Rate 4 09/28/24 12:00 Oxygen Flow Rate 4 09/26/24 22:50 BMI result Body Mass Index 35.6 Const General: cooperative, comfortable, alert, awake and in distress mild and respiratory Nutritional Appearance: obese Orientation/consciousness: patient oriented x3 HEENT Head: Yes normocephalic and Yes atraumatic Neck Neck: Yes trachea midline, Yes supple and Yes JVD Resp Effort & Inspection: normal respiratory effort Auscultation: diminished lung sounds Cardio Jugular venous distension: JVD Rate: tachycardic Rhythm: abnormal rhythm irregularly irregular Heart sounds: S1 normal heart sound present, S2 normal heart sound present, no click, no gallops and Murmur heart sound present systolic GI Inspection: Yes obesity Auscultation: normal bowel sounds Skin General skin exam: no rashes or lesions noted Neuro General: patient oriented x3 and no focal motor deficits Extrem General: Yes no clubbing, cyanosis or edema Objective Labs and Meds 09/27/24 06:41 09/28/24 06:50 Lab results: Laboratory Results - last 24 hr 09/28/24 09/28/24 00:43 06:50 Sodium 144 142 Potassium 4.0 D 3.4 Chloride 99 100 Carbon Dioxide 36 H 33 H Anion Gap 13 12 BUN 13 11 Creatinine 1.06 0.80 Estim Creat Clear Calc 47.9 63.5 Estimated GFR 50 > 60 Random Glucose 110 111 Calcium 9.5 9.0 Magnesium 1.9 Troponin I High Sens 58.7 H* B-Natriuretic Peptide 359 H Digoxin 0.9 Progress Note: A&P Assessment and plan (1) Atrial fibrillation with rapid ventricular response: Status: Acute Assessment and Plan: Atrial fibrillation rapid ventricular response with elderly woman difficult control. Given other couple of doses IV digoxin 0.25 mg IV push q.6 hours. Maximize Cardizem drip. Clinically does not appear to be having significant bronchospasm. Consider adding metoprolol overall 12.5 mg q.6 hours. Switch to Xopenex therapy. Eventually will try to switch her to Cardizem therapy. Continue full oral anticoagulation, and start Eliquis. Continue management of her underlying heart failure as his COPD. (2) Acute exacerbation of CHF (congestive heart failure): Status: Acute Assessment and Plan: Acute CHF. Clinically seems to be improving although intake and output chart and not well maintained. Would better intake and output chart. Continue IV diuresis with Lasix. Continue better rate control as above. Continue oxygen therapy. Continue CPAP therapy and COPD management. Will follow with you Time Spent With Patient Time: Total time managing care of this patient today ____ minutes. Progress Note: Quality Stroke Does the patient have a stroke diagnosis?: No Procedures Date of Service Date of Service: 09/28/24
[2024-09-28] MEDS: Furosemide 20 MG/2 ML VIAL 40 MG IVPUSH (17:53)
[2024-09-28] MEDS: Metoprolol Tartrate 12.5 MG HALFTAB PO (17:54)
[2024-09-28] MEDS: Atorvastatin Calcium 20 MG TABLET PO (20:17)
[2024-09-28] MEDS: traZODone HCL 100 MG TABLET PO (20:17)
[2024-09-28] MEDS: traMADoL HCL 50 MG TABLET PO (20:18)
[2024-09-29] VITALS (7 sets, daily range): BP systolic 101–129; BP diastolic 58–70; PULSE 64–81; RESP 16–18; TEMP 36.1–37.5; O2SAT 92–98
[2024-09-29] MEDS: Metoprolol Tartrate 12.5 MG HALFTAB PO ×2 (00:19→12:16)
[2024-09-29] MEDS: Nystatin Powder 15 GM BOTTLE 1 APPL TOPICAL ×2 (00:22→07:50)
[2024-09-29] MEDS: Clotrimazole 1 % Cream 15 GM TUBE 1 APPL TOPICAL ×2 (00:22→07:50)
[2024-09-29] MEDS: Omeprazole 20 MG CAPSULE.DR PO (05:29)
[2024-09-29] MEDS: dilTIAZem HCL CD 240 MG CAP.ER.DEG PO (07:49)
[2024-09-29] MEDS: guaiFENesin LA 600 MG TAB.ER.12H PO ×2 (07:49→21:42)
[2024-09-29] MEDS: Apixaban 5 MG TABLET PO ×2 (07:49→21:42)
[2024-09-29] MEDS: Cholecalciferol (Vitamin D3) 10 MCG TABLET PO (07:49)
[2024-09-29] MEDS: Multivitamin TABLET 1 TAB PO (07:49)
[2024-09-29] MEDS: Docusate Sodium 100 MG CAPSULE 200 MG PO ×2 (07:49→21:40)
[2024-09-29] MEDS: Furosemide 20 MG/2 ML VIAL 40 MG IVPUSH (07:50)
[2024-09-29] MEDS: 0.9 % Sodium Chloride Flush 3 ML SYRINGE IVFLUSH ×3 (07:50→21:46)
[2024-09-29 08:54] LABS: Anion Gap 15 (12-20); Blood Urea Nitrogen 13 mg/dL (9-16); Calcium 9.5 mg/dL (8.4-10.2); Carbon Dioxide 32 mmol/L (22-29); Chloride 98 mmol/L (96-108); Creatinine Clr Calc Pharmacy 64.3; Estimated Glomerular Filt Rate > 60; Glucose Random 111 mg/dL (60-115); Potassium 3.6 mmol/L (3.3-5.1); Sodium 141 mmol/L (135-145)
[2024-09-29 08:58] LABS: B Type Natriuretic Peptide 226 pg/mL (<100)
[2024-09-29] MEDS: metOLazone 2.5 MG TABLET PO (10:39)
--- NOTE | 2024-09-29 11:56 | PM.PNCARD ---
Subjective Subjective Date of Service: 09/29/24 Principal diagnosis: Atrial fibrillation with rapid ventricular response, CHF Interval history: Patient with much better rate control at this point time. Feeling a lot better. Her breathing is a lot better. Barely has a negative balance. However she says her shortness of breath is improved. Review of Systems Constitutional: Reports no additional constitutional complaints Physical Exam Vital Signs: Last Vital Signs Temp 97.4 F 09/29/24 10:47 Pulse 77 09/29/24 10:47 Resp 18 09/29/24 10:47 BP 126/63 09/29/24 10:47 Pulse Ox 94 09/29/24 10:47 O2 Del Method Nasal Cannula 09/29/24 10:47 O2 Flow Rate 4 09/29/24 10:47 Oxygen Flow Rate 4 09/26/24 22:50 BMI result Body Mass Index 35.6 Const General: cooperative, comfortable, alert, awake and in distress mild and respiratory Nutritional Appearance: obese Orientation/consciousness: patient oriented x3 HEENT Head: Yes normocephalic and Yes atraumatic Neck Neck: Yes trachea midline, Yes supple and Yes JVD Resp Effort & Inspection: normal respiratory effort Auscultation: diminished lung sounds Cardio Jugular venous distension: JVD Rate: tachycardic Rhythm: abnormal rhythm irregularly irregular Heart sounds: S1 normal heart sound present, S2 normal heart sound present, no click, no gallops and Murmur heart sound present systolic GI Inspection: Yes obesity Auscultation: normal bowel sounds Skin General skin exam: no rashes or lesions noted Neuro General: patient oriented x3 and no focal motor deficits Extrem General: Yes no clubbing, cyanosis or edema Objective Labs and Meds 09/27/24 06:41 09/29/24 07:55 Lab results: Laboratory Results - last 24 hr 09/29/24 07:55 Sodium 141 Potassium 3.6 Chloride 98 Carbon Dioxide 32 H Anion Gap 15 BUN 13 Creatinine 0.79 Estim Creat Clear Calc 64.3 Estimated GFR > 60 Random Glucose 111 Calcium 9.5 B-Natriuretic Peptide 226 H Progress Note: A&P Assessment and plan (1) Atrial fibrillation with rapid ventricular response: Status: Acute Assessment and Plan: Atrial fibrillation with much better rate control. Agree with current rate control therapy with Cardizem and change metoprolol to Toprol-XL 50 mg at nighttime. Continue digoxin at 0.125 mg but on a daily basis. Continue full oral anticoagulation Eliquis which she is tolerating well. Importance of aggressive rate control was discussed with her. Continue oxygen therapy. Continue CPAP therapy. (2) Acute exacerbation of CHF (congestive heart failure): Status: Acute Assessment and Plan: Overall acute hypoxemic respiratory failure with a combination of heart failure as well as COPD. Continue oxygen therapy. Continue current diuretic regimen including Lasix which can be switch to Bumex 2 mg daily. Continue CO PDA management as well as CPAP therapy. Add Jardiance 10 mg to her regimen. Will sign of the case. Thank you for allowing me to partake in her care Time Spent With Patient Time: Total time managing care of this patient today ____ minutes. Progress Note: Quality Stroke Does the patient have a stroke diagnosis?: No Procedures Date of Service Date of Service: 09/29/24
[2024-09-29] MEDS: Digoxin 0.125 MG TABLET PO (12:16)
--- NOTE | 2024-09-29 13:23 | P.PNIM_ITS ---
Subjective Subjective Date of Service: 09/29/24 Interval History: Seen and evaluated this morning HR better controlled Still hypoxic on higher O@ supplement Denies any chest pain no other events Review of Systems Review of Systems: Yes all other systems are reviewed and are negative Physical Exam 2 Vital Signs: Vital Signs: Last Vital Signs Temp 97.4 F 09/29/24 10:47 Pulse 77 09/29/24 10:47 Resp 18 09/29/24 10:47 BP 126/63 09/29/24 10:47 Pulse Ox 94 09/29/24 10:47 O2 Del Method Nasal Cannula 09/29/24 10:47 O2 Flow Rate 4 09/29/24 10:47 Oxygen Flow Rate 4 09/26/24 22:50 BMI result Body Mass Index 35.6 Const: Other: Constitutional : Awake, interactive, in mild respiratoy distress Neck : Normal inspection, Supple Cardiovascular : irregular irregular, no JVP, trace lower extremity edema, tachycardia Respiratory : decreased bilateral air entry, bilateral expiratory wheezes Gastrointestinal: soft, lax, Normal bowel sounds, Non tender Skin : Warm, Dry Neurological : Alert & oriented x3, No focal deficit Objective Data Active Medications Acetaminophen (Acetaminophen 325 Mg Tablet) 975 mg PO Q6H PRN PRN Reason: Pain, Mild (Pain Scale 1-3), fever or headache Last Admin: 09/27/24 12:32 Dose: 975 mg Documented By: CRESENCIO Apixaban (Apixaban 5 Mg Tablet) 5 mg PO BID [facility] Last Admin: 09/29/24 07:49 Dose: 5 mg Documented By: BALWINDER Atorvastatin Calcium (Atorvastatin Calcium 20 Mg Tablet) 20 mg PO BEDTIME [facility] Last Admin: 09/28/24 20:17 Dose: 20 mg Documented By: LYN Buspirone HCl (Buspirone Hcl 5 Mg Tablet) 7.5 mg PO BID PRN PRN Reason: Anxiety Clotrimazole (Clotrimazole 1 % Cream 15 Gm Tube) 1 appl TOPICAL BID [facility]; Protocol Last Admin: 09/29/24 07:50 Dose: 1 appl Documented By: BALWINDER Digoxin (Digoxin 0.125 Mg Tablet) 0.125 mg PO Q48H [facility]; Protocol Last Admin: 09/29/24 12:16 Dose: 0.125 mg Documented By: BALWINDER Diltiazem HCl (Diltiazem Hcl Cd 240 Mg Cap.Er.Deg) 240 mg PO DAILY [facility]; Protocol Last Admin: 09/29/24 07:49 Dose: 240 mg Documented By: BALWINDER Docusate Sodium (Docusate Sodium 100 Mg Capsule) 100 mg PO DAILY@1200 PRN PRN Reason: Constipation Docusate Sodium (Docusate Sodium 100 Mg Capsule) 200 mg PO BID [facility] Last Admin: 09/29/24 07:49 Dose: 200 mg Documented By: BALWINDER Fluticasone/Vilanterol (Fluticasone/Vilanterol 100/25 Blst.W.Dev) 1 puff INHALE RDAILY [facility] Last Admin: 09/29/24 07:43 Dose: Not Given Documented By: CUATE Non-Admin Reason: med unavail/pharmacy called Furosemide (Furosemide 20 Mg/2 Ml Vial) 40 mg IVPUSH BID@0900,1800 [facility]; Protocol Last Admin: 09/29/24 07:50 Dose: 40 mg Documented By: BALWINDER Guaifenesin (Guaifenesin La 600 Mg Tab.Er.12h) 600 mg PO BID [facility] Last Admin: 09/29/24 07:49 Dose: 600 mg Documented By: BALWINDER Hydroxyzine HCl (Hydroxyzine Hcl 50 Mg Tablet) 50 mg PO DAILY PRN PRN Reason: anxiety Ipratropium [place] (Ipratropium [place] 0.5 Mg/2.5 Ml Solution) 0.5 mg INHALE Q4H PRN PRN Reason: for wheezing/ shortness of breath Metoprolol Tartrate (Metoprolol Tartrate 12.5 Mg Halftab) 12.5 mg PO Q6H [facility]; Protocol Last Admin: 09/29/24 12:16 Dose: 12.5 mg Documented By: BALWINDER Multivitamins/Vitamin C (Multivitamin Tablet) 1 tab PO DAILY [facility] Last Admin: 09/29/24 07:49 Dose: 1 tab Documented By: BALWINDER Nystatin (Nystatin Powder 15 Gm Bottle) 1 appl TOPICAL BID [facility]; Protocol Last Admin: 09/29/24 07:50 Dose: 1 appl Documented By: BALWINDER Omeprazole (Omeprazole 20 Mg Capsule.Dr) 20 mg PO DAILY@0630 [facility] Last Admin: 09/29/24 05:29 Dose: 20 mg Documented By: LYN Sodium Chloride (0.9 % Sodium Chloride Flush 3 Ml Syringe) 3 ml IVFLUSH QSHIFT [facility] Last Admin: 09/29/24 07:50 Dose: 3 ml Documented By: BALWINDER Tramadol HCl (Tramadol Hcl 50 Mg Tablet) 50 mg PO BID PRN PRN Reason: Pain, Moderate(Pain Scale 4-6) Last Admin: 09/28/24 20:18 Dose: 50 mg Documented By: LYN Trazodone HCl (Trazodone Hcl 100 Mg Tablet) 100 mg PO BEDTIME PRN PRN Reason: Sleep Last Admin: 09/28/24 20:17 Dose: 100 mg Documented By: LYN Vitamin D (Cholecalciferol (Vitamin D3) 10 Mcg Tablet) 10 mcg PO DAILY [facility] Last Admin: 09/29/24 07:49 Dose: 10 mcg Documented By: BALWINDER Labs 09/27/24 06:41 09/29/24 07:55 Labs: Laboratory Results - last 24 hr 09/29/24 07:55 Anion Gap 15 Estim Creat Clear Calc 64.3 Estimated GFR > 60 Random Glucose 111 Calcium 9.5 B-Natriuretic Peptide 226 H Assessment and Plan (1) Acute exacerbation of CHF (congestive heart failure): Status: Acute (2) Elevated troponin: Status: Acute (3) Atrial fibrillation with rapid ventricular response: Status: Acute Plan Macy Millan is 79 y/o woman admitted with: Atrial fibrillation w RvR HR better controlled dc diltiazem drip, start Daily Cardizem 240mg CD Switch Metoprolol to 50 mg XL at bedtime Change Digoxin to daily Keep on Telemetry DC baby aspirin. start Eliquis and monitor for any bleeding (she did not follow with EGD\Colonoscopy when she had reported GI bleed last year) - discuss with GI Elevated troponin likely demand ischemia. denies any chest pain Cardiology following acute on chronic hypoxic respiratory failure 2/2 HFpEF. Continue IV lasix Switch from Torsemide to Bumex as outpatient I\O follow BNP Hyperlipidemia. Continue statin. COPD/chronic hypoxic respiratory failure/OHS. Continue O2 therapy to keep O2 sats between 88-90%. Continue home inhalers. WOJCIECH. Continue nocturnal CPAP. PAD. Continue statin and aspirin. Obesity. BMI 34.8 kg/m2. advised Weight loss. DVT prophylaxis: SCDs Code status: Full Patient will need hospitalization overnight for CHF exacerbation with hypoxia on IV Lasix and O2 supplement Quality Stroke Does the patient have a stroke diagnosis?: No VTE Prior VTE?: No VTE Risk Level:: Medical - moderate - high VTE Device Contraindication: N/A - Device Ordered VTE Drug Contraindication: Treatment Not Indicated
[2024-09-29] MEDS: Empagliflozin 10 MG TABLET PO (14:16)
[2024-09-29] MEDS: traZODone HCL 100 MG TABLET PO ×2 (21:40→22:06)
[2024-09-29] MEDS: traMADoL HCL 50 MG TABLET PO (21:42)
[2024-09-29] MEDS: Metoprolol Succinate ER 50 MG TAB.ER.24H PO (21:43)
[2024-09-29] MEDS: Atorvastatin Calcium 20 MG TABLET PO (21:43)
[2024-09-30] VITALS: BP 99/74; PULSE 77; RESP 16; TEMP 36.6; O2SAT 91
--- NOTE | 2024-09-30 02:07 | PC.NURSE ---
1800 lasix not adminstered d/t iv complications.
[2024-09-30 04:00] VITALS: BP 119/58; PULSE 77; RESP 20; TEMP 36.3; O2SAT 92
[2024-09-30] MEDS: Omeprazole 20 MG CAPSULE.DR PO (06:09)
[2024-09-30] MEDS: Acetaminophen 325 MG TABLET 975 MG PO ×2 (06:14→12:56)
[2024-09-30 07:47] VITALS: BP 116/56; PULSE 77; RESP 20; TEMP 36.1; O2SAT 94
[2024-09-30] MEDS: Fluticasone/Vilanterol 100/25 BLST.W.DEV 1 PUFF INHALE (08:06)
[2024-09-30 08:08] VITALS: PULSE 77; RESP 20; O2SAT 92
[2024-09-30] MEDS: Nystatin Powder 15 GM BOTTLE 1 APPL TOPICAL (09:18)
[2024-09-30] MEDS: Clotrimazole 1 % Cream 15 GM TUBE 1 APPL TOPICAL (09:18)
[2024-09-30] MEDS: 0.9 % Sodium Chloride Flush 3 ML SYRINGE IVFLUSH (09:19)
[2024-09-30] MEDS: Furosemide 20 MG/2 ML VIAL 40 MG IVPUSH (09:21)
[2024-09-30] MEDS: Empagliflozin 10 MG TABLET PO (09:21)
[2024-09-30] MEDS: Apixaban 5 MG TABLET PO (09:21)
[2024-09-30] MEDS: Docusate Sodium 100 MG CAPSULE 200 MG PO (09:21)
[2024-09-30] MEDS: Multivitamin TABLET 1 TAB PO (09:21)
[2024-09-30] MEDS: Cholecalciferol (Vitamin D3) 10 MCG TABLET PO (09:21)
[2024-09-30] MEDS: dilTIAZem HCL CD 240 MG CAP.ER.DEG PO (09:21)
[2024-09-30] MEDS: guaiFENesin LA 600 MG TAB.ER.12H PO (09:22)
[2024-09-30] MEDS: Digoxin 0.125 MG TABLET PO (09:22)
[2024-09-30 10:20] VITALS: PULSE 87; O2SAT 92
--- NOTE | 2024-09-30 12:31 | PM.DS ---
DS: Providers Provider Date of Service: 09/30/24 Date of admission: 09/27/24 04:24 Date of discharge: 09/30/24 Primary care physician: Clint Tong MD Consults: 09/27/24 04:26 Consult to Cardiology Routine Consulting Provider: [facility] Reason for consultation: Rapid AFib, elevated troponin Has provider been notified: No DS: Diagnosis Discharge Diagnosis (1) Acute exacerbation of CHF (congestive heart failure): Status: Acute (2) Elevated troponin: Status: Acute (3) Atrial fibrillation with rapid ventricular response: Status: Acute (4) WOJCIECH (obstructive sleep apnea): Status: Acute DS: Summary Hospital Course Hospital Course: Admission note HPI Macy Millan is 79 years old woman with past medical history significant for COPD/chronic hypoxic failure -home O2, atrial fibrillation -not on anticoag (event of GI bleeding), WOJCIECH on CPAP, CAD and HFpEF was brought to the emergency department via ambulance due to 2 days' history of shortness on breath most significant on exertion. She reported having 2 brief episodes of chest tightness that lasted for minutes. She has no chest pain at this time. She also complained of generalized weakness. Denied cough, fever, palpitations, dizziness or chills. She took her evening medications prior to arrival to the emergency department. She has a former 60+ pack per year smoker. In the ED, she was found to have tachycardia consistent with AFib. Or balance signs are stable. She is currently requiring 4 liters/minutes supplemental oxygen which is her baseline. Blood workup showed no leukocytosis. Hemoglobin is 12.2 and platelets 167. There are no electrolyte imbalances. CO2 is 30. LFTs are normal. Troponin is elevated 64.7 --> 73.1. Digoxin level is 0.2 (low). CXR showed pulmonary vascular congestion, but no consolidations or pleural effusions. ED tx: Diltiazem 10 mg IV, digoxin 0.5 mg IV Hospital course The patient was admitted and treated for Atrial fibrillation w RvR as she was started on Cardizem drip with fair response with addition on Metoprolol and Digoxin as she was evaluated by cardiology team. switched to Cardizem 240mg CD and Metoprolol 50 mg XL at bedtime and Changed Digoxin to daily instead of Q48 hours. overall felt better. Aspirin discontinued and she was started on Eliquis and monitor for any bleeding (she did not follow with EGD\Colonoscopy when she had reported GI bleed last year). To follow blood work as outpatient. She was noted to have Elevated troponin likely demand ischemia. she denied any chest pain and was seen by cardiology who recommended medical management as it is likely demand related. She was also treated for acute on chronic hypoxic respiratory failure secondary to HFpEF. Treated with IV lasix with fair response as BNP lowered down. Switched from Torsemide to Bumex 2mg daily as outpatient. For COPD/chronic hypoxic respiratory failure/OHS. Continue O2 therapy to keep O2 sats between 88-90%. Continue home inhalers. WOJCIECH. Continue nocturnal CPAP. Evalauted by PT who recommended home PT. Discharge plan Stop Aspirin Start Eliquis Change Digoxin to daily dose Start Metoprolol XL at bedtime Continue Cardizem 240 mg Daily Start Jardiance 10 mg daily Stop Torsemide, Start Bumex for fluid management Repeat blood test next week Follow with cardiology as outpatient Time Attestation Discharge Coordination Time (in mins): 43 Quality: Safe Use of Opioids Does Pt have an Active Cancer Diagnosis on the Problem List?: No Quality: Stroke Does the patient have a stroke diagnosis?: No Physical Exam Vital Signs: Vital Signs: Last Vital Signs Temp 97.0 F 09/30/24 07:47 Pulse 87 09/30/24 10:20 Resp 20 09/30/24 08:08 BP 116/56 L 09/30/24 07:47 Pulse Ox 92 09/30/24 10:20 O2 Del Method Nasal Cannula 09/30/24 07:47 O2 Flow Rate 4 09/30/24 07:47 Oxygen Flow Rate 4 09/26/24 22:50 BMI result Body Mass Index 35.6 Const: Other: Constitutional : Awake, interactive, in mild respiratoy distress Neck : Normal inspection, Supple Cardiovascular : irregular irregular, no JVP, trace lower extremity edema Respiratory : decreased bilateral air entry, bilateral expiratory wheezes Gastrointestinal: soft, lax, Normal bowel sounds, Non tender Skin : Warm, Dry Neurological : Alert & oriented x3, No focal deficit DS: Data Data Completed and Pending Completed studies during hospitalization [Text1]: Procedures Assistance with Respiratory Ventilation, Less than 24 Consecutive Hours, Continuous Positive Airway Pressure (04/09/24) Insertion of Infusion Device into Superior Vena Cava, Percutaneous Approach (10/04/22) Introduction of Vasopressor into Central Vein, Percutaneous Approach (10/04/22) Ultrasonography of Superior Vena Cava, Guidance (10/04/22) Imaging Chest x-ray: Radiologist's impression: ITS Impressions Chest X-Ray 09/26/24 22:54 IMPRESSION: *Pulmonary vascular congestion. No focal pulmonary consolidation. *Cardiomegaly. *Dense aortic calcific atherosclerosis. Electronically signed by: Brandin Reaves MD 09/27/2024 01:35 AM [facility] Discharge Plan Discharge Anticipated Discharge Date/Time: 09/30/24 12:07 Patient Disposition: Home Health Service Discharge Diagnosis: Acute heart failure exacerbation Atrial fibrillation with rapid response Referrals: Clint Tong MD [Primary Care Provider] - 1 Week Cory Mckeon MD [Physician] - 1 week Discharge Medications: New Eliquis 5 mg Tablet 5 mg PO BID Qty: 180 0RF metoprolol succinate 50 mg Tablet Extended Release 24 Hr 50 mg PO BEDTIME Qty: 90 0RF Protocol: Hold for SBP/HR < HOLD for SBP < : 90 HOLD for HR < : 60 digoxin 125 mcg (0.125 mg) Tablet 0.125 mg PO DAILY Qty: 90 0RF Protocol: Hold for HR <: HOLD for HR < : 60 Jardiance 10 mg Tablet 10 mg PO DAILY Qty: 90 0RF nystatin 100,000 unit/gram Powder 1 appl topical BID Qty: 30 0RF Protocol: Apply to: Apply to: underneath breasts and abd folds bumetanide 2 mg tablet 2 mg PO DAILY Qty: 90 0RF Continued fluticasone furoate-vilanterol [Breo Ellipta] 100-25 mcg/dose blister with device 1 ea inhalation RDAILY Qty: 1 6RF ipratropium bromide 0.02 % solution 2.5 ml inhalation Q4H PRN (Reason: for wheezing/ shortness of breath) Qty: 62.5 1RF guaifenesin [Mucinex] 600 mg Tablet Extended Release 12hr 600 mg PO BID Qty: 20 0RF albuterol sulfate 2.5 mg /3 mL (0.083 %) solution for nebulization 1 vial inhalation Q4H PRN (Reason: Shortness Of Breath) docusate sodium 100 mg Capsule 200 mg PO BID tramadol 50 mg tablet 1 tab PO BID PRN (Reason: Pain) cholecalciferol (vitamin D3) [Vitamin D3] 10 mcg (400 unit) Tablet 10 mcg PO DAILY B-complex with vitamin C Tablet 1 tab PO DAILY lutein 20 mg Capsule 20 mg PO DAILY Rx Instructions: give with meal/snack hydroxyzine pamoate 25 mg capsule 50 mg PO DAILY PRN (Reason: anxiety) buspirone 5 mg tablet 7.5 mg PO BID PRN (Reason: Anxiety) omega [id number]-fish oil [Fish Oil] 1,000 mg (120 mg-180 mg) Capsule 1 cap PO DAILY acetaminophen 325 mg Tablet 650 mg PO Q4H PRN (Reason: Pain) trazodone 50 mg tablet 100 mg PO BEDTIME PRN (Reason: Sleep) docusate sodium 100 mg Capsule 100 mg PO DAILY@1200 PRN (Reason: Constipation) diltiazem HCl 240 mg capsule,extended release 24hr 240 mg PO DAILY Qty: 90 0RF atorvastatin 20 mg tablet 20 mg PO BEDTIME omeprazole 20 mg capsule,delayed release(DR/EC) 20 mg PO DAILY@0630 Discontinued aspirin 81 mg Tablet,Delayed Release (Dr/Ec) 81 mg PO BEDTIME torsemide 20 mg tablet 40 mg PO DAILY digoxin 125 mcg (0.125 mg) tablet 0.125 mg PO Q48H Discharge Orders: Discharge Order (Routine); Ordered 09/30/24 Ordered By: Carmel Disla Diet: Low salt diet Activity on Discharge: As tolerated Stand Alone Forms: Patient Portal Discharge page Print Language: Nepali Other Ambulatory Orders: Basic Metabolic Panel (Routine) Timeframe: 1 Week Facility: [facility] - Location: Laboratory Ordered By: Carmel Disla Care Plan Goals: Stop Aspirin Start Eliquis Change Digoxin to daily dose Start Metoprolol XL at bedtime Continue Cardizem 240 mg Daily Start Jardiance 10 mg daily Stop Torsemide, Start Bumex for fluid management Repeat blood test next week Follow with cardiology as outpatient Health Concerns: Heart failure exacerbation Atrial fibrillation with rapid ventricular response Plan of Treatment: Medications Outpatient follow up Assessment: as above Patient Instructions: A-fib (Atrial Fibrillation) (ED), Chronic Respiratory Failure (DC)
--- NOTE | 2024-09-30 12:58 | P.F2F_ITS ---
Service Date Service Date: 09/30/24 Encounter Date of encounter: 09/30/24 Reasons for Services Signs and symptoms assessed: Physical deconditioning Heart failure Reason for residential: medication management and teach disease management Reason for physical therapy: home safety and mobility and therapeutic exercises Homebound: Leaving the home is medically contraindicated at this time without the asist of a device and/or another person due th the listed conditions above and below. Reason homebound: unsteady gait / fall risk Certification: Based on the above findings, I certify that this patient is confined to the home and needs intermittent residential care, physical therapy and/or speech therapy, or continues to need occupational therapy. The patient is under my care, and I have initiated the establishment of the plan of care. The patient will be followed by a physician who will periodically review the plan of care. Time Spent With Patient Time: Total time managing care of this patient today ____ minutes.
--- NOTE | 2024-09-30 14:36 | MHC.CM.PN ---
Pt has been medically cleared for DC, she will go home via family transport and have services from [facility].
== END 2024-09-30 13:30 | disposition home health service (06) | DRG 308 ==
LOC: HO.ED 09-27 03:56 → HO.EDOVER 09-27 04:30 → HO.IMC 09-27 17:17
PROVIDERS: Admitting Provider Internal Medicine; Emergency Provider Internal Medicine; PCP Internal Medicine; Visit Provider Student in an Organized Health Care Education/Training Program
DX: I48.91 Unspecified atrial fibrillation (principal); I50.33 Acute on chronic diastolic (congestive) heart failure; J96.21 Acute and chronic respiratory failure with hypoxia; E66.2 Morbid (severe) obesity with alveolar hypoventilation; I73.9 Peripheral vascular disease, unspecified; E78.5 Hyperlipidemia, unspecified; I25.10 Atherosclerotic heart disease of native coronary artery without angina pectoris; J43.9 Emphysema, unspecified; Z99.81 Dependence on supplemental oxygen; Z87.891 Personal history of nicotine dependence; Z68.34 Body mass index [BMI] 34.0-34.9, adult; Z79.899 Other long term (current) drug therapy
CPT/HCPCS: 36415; 71045; 80048; 80053; 80162; 83735; 83880; 84484; 85025; 85610; 85730; 93005; 94640; 94660; 97162; 99285; J1160; J1940; J3475

== ENCOUNTER → 2024-09-26 22:58 | Outpatient (BNV) | payer MEDICARE, MEDICAID, SELFPAY | PROVIDERS: Admitting Provider Internal Medicine; Emergency Provider Internal Medicine; PCP Internal Medicine; Visit Provider Internal Medicine Cardiovascular Disease | DX: I48.91 Unspecified atrial fibrillation (principal) | CPT/HCPCS: 93010 ==

== ENCOUNTER → 2024-09-27 04:24 | Outpatient (BNV) | payer MEDICARE, MEDICAID, SELFPAY | PROVIDERS: Admitting Provider Internal Medicine; Emergency Provider Internal Medicine; PCP Internal Medicine; Visit Provider Internal Medicine Cardiovascular Disease | DX: I48.91 Unspecified atrial fibrillation (principal); R79.89 Other specified abnormal findings of blood chemistry | CPT/HCPCS: 99222 ==

== ENCOUNTER → 2024-09-27 04:24 | Outpatient (BNV) | payer MEDICARE, MEDICAID, SELFPAY | PROVIDERS: Admitting Provider Internal Medicine; Emergency Provider Internal Medicine; PCP Internal Medicine; Visit Provider Internal Medicine | DX: I48.91 Unspecified atrial fibrillation (principal); I50.9 Heart failure, unspecified; R79.89 Other specified abnormal findings of blood chemistry | CPT/HCPCS: 99223; 99232; 99239; 99499; G0180 ==

== ENCOUNTER 2025-03-05 13:41 | Outpatient (AMB) | payer MEDICARE, MEDICAID, SELFPAY ==
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
[2025-03-05 14:11] VITALS: BP 118/66; PULSE 83; RESP 18; TEMP 36.4; O2SAT 96
--- OUTSIDE RECORDS SUMMARY | 2025-03-05 14:17 | XMS_ITS ---
Author Organization [facility] Care Team Providers Care Bike Assembler Name Role Phone Clint Tong Unavailable Unavailable Allergies and adverse reactions No Known Allergies Care Team Name Role Address Phone Organization Dates Clint Tong [address] [place] [address], [id number], [place] (Office): : [facility] 11/15/2012 - 11/27/2012 Immunizations Immunization Status Vaccine Details Vaccine Code CodeSystem Date Notes Influenza completed Influenza, high-dose, split virus, trivalent, injectable, preservative free 135 CVX created date: 05/26/2012 administer ed date: 08/16/2011 Pneumovax Dose 1 completed pneumococcal polysaccharide vaccine, 23 valent 33 CVX created date: 05/26/2012 administer ed date: 08/28/2008 TB 1 Step Mantoux (PPD) completed tuberculin skin test; purified protein derivative solution, intradermal lotNumber: [id number] Given Left Forearm 96 CVX created date: 09/03/2012 consent date: 09/03/2012 administer ed date: 09/03/2012 Educated by on 09/01/2012 exp date 12/27 g iven 09/01/12 TB 2 Step Mantoux Skin Test completed tuberculin skin test; purified protein derivative solution, intradermal lotNumber: [id number] Given Right Forearm Step 1 of Multi-step with next step required 96 CVX created date: 05/25/2012 consent date: 05/24/2012 administer ed date: 05/24/2012 exp date 09/27 Reason for Referral No Reasons for Referral Entered Social History Social History Observation Description Start Date End Date Code Code System Current Smoking Status Tobacco smoking consumption unknown [id number] SNOMED CT Sex Assigned At Female 1945 32860-4 [facility] Gender Identity Vital Signs Code Code System Vitals Name Values and Units Timing Information 59012-2 [facility] Weight Yryvl=487.0 Units=Lbs 10/2012 9279-1 [facility] Respiratory Rate Value=19.0 Units=/m in 11/16/2012 8462-4 [facility] Blood Pressure-Diastolic Value=97 Un its=mmHg 11/16/2012 8480-6 [facility] Blood Pressure-Systolic Zppsw=620 Un its=mmHg 11/16/2012 8310-5 [facility] Body Temperature Value=98.3 Units=?? F 11/16/2012 8867-4 [facility] Heart rate Value=67.0 Units=/min 10/2012 34724-9 [facility] O2 % BldC Oximetry Value=91.0 Units= % 11/16/2012
== END 2025-03-05 15:13 | disposition home or self-care (01) ==
LOC: HO.HMCHD 13:44
PROVIDERS: PCP Internal Medicine; Visit Provider Physician Assistant
DX: J44.1 Chronic obstructive pulmonary disease with (acute) exacerbation (principal); J96.90 Respiratory failure, unspecified, unspecified whether with hypoxia or hypercapnia; I50.9 Heart failure, unspecified; I48.91 Unspecified atrial fibrillation; G47.33 Obstructive sleep apnea (adult) (pediatric); Z00.00 Encounter for general adult medical examination without abnormal findings

== ENCOUNTER → 2025-03-05 13:41 | Outpatient (BNVA) | payer MEDICARE, MEDICAID, SELFPAY | PROVIDERS: PCP Internal Medicine; Visit Provider Physician Assistant | DX: J44.1 Chronic obstructive pulmonary disease with (acute) exacerbation (principal); I48.91 Unspecified atrial fibrillation; I50.9 Heart failure, unspecified; J96.11 Chronic respiratory failure with hypoxia; G47.33 Obstructive sleep apnea (adult) (pediatric); Z99.81 Dependence on supplemental oxygen | CPT/HCPCS: 99202 ==